=== PATIENT | male | born 1995 | race Caucasian/White ===

== ENCOUNTER 2020-10-12 03:31 | Emergency (ER) | payer MEDICAID, SELFPAY ==
--- NOTE | ~2020-10-12 | XR_ITS ---
EXAMINATION: CHEST 1 VIEW CLINICAL INFORMATION: Palpitations. COMPARISON: 03/17/2019. TECHNIQUE: An AP view of the chest is provided. FINDINGS: The cardiac silhouette is not enlarged. The mediastinal and hilar contours are unremarkable. There are neither pleural effusions nor pneumothoraces. There are no consolidations. The osseous structures are stable. XR/XR chest 1V IMPRESSION: No evidence for acute disease.
--- NOTE | 2020-10-12 03:39 | ECG_ITS ---
Test Reason : PALP Blood Pressure : / mmHG Vent. Rate : 089 BPM Atrial Rate : 089 BPM P-R Int : 108 ms QRS Dur : 080 ms QT Int : 338 ms P-R-T Axes : 059 088 049 degrees QTc Int : 411 ms Artfiact in tracing Normal sinus rhythm Due to artifact, cannot assess ST segments When compared with ECG of 17-MAR-2019 10:33, Vent. rate has increased BY 29 BPM Referred By: Lottie Ortiz Electronically Signed By:LACHO KERR
[2020-10-12 03:43] VITALS: BP 144/77; PULSE 89; RESP 23; TEMP 36.3; O2SAT 100; BMI 20.6
[2020-10-12 04:05] LABS: Basophils Absolute Auto 0.1 X10*3/uL (0.0-0.2); Basophils Percent Auto 0.8 % (0-2); Eosinophils Absolute Auto 0.2 X10*3/uL (0.0-0.4); Eosinophils Percent Auto 2.4 % (0-4); Hematocrit 42.4 % (42-52); Imm Gran Abs Auto 0.02 X10*3/uL (0.00-0.03); Imm Gran Pct Auto 0.3 % (0.0-0.4); Lymphocytes Percent Auto 37.2 % (20-40); Mean Corpuscular HGB Conc 35.4 g/dl (31.0-36.0); Mean Corpuscular Hemoglobin 31.7 pg (27.0-33.0); Mean Corpuscular Volume 89.6 fL (80-98); Mean Platelet Volume 9.6 fL (9.4-12.4); Monocytes Absolute Auto 0.5 X10*3/uL (0.1-1.2); Monocytes Percent Auto 6.8 % (2-11); Neutrophils Absolute Auto 4.2 X10*3/uL (2.0-8.3); Neutrophils Percent Auto 52.5 % (45-73); Platelet Count 191 X10*3/uL (160-400); Red Blood Count 4.73 X10*6/uL (4.60-5.80); Red Cell Distribution Width 11.7 % (11.0-16.0)
[2020-10-12 04:06] LABS: MANUAL DIFF FLAG NO
--- NOTE | 2020-10-12 04:13 | ED_ITS ---
HPI - Arrhythmia/Palpitations General Chief Complaint: Arrhythmia/Palpitations Stated Complaint: Palpitations Time Seen by Provider: 10/12/20 04:08 Source: patient Mode of arrival: ambulatory Limitations: no limitations History of Present Illness HPI narrative: Patient comes emergency room complaining heart racing, palpitations, has been going on for 24 hours. Patient states he can not sleep, feels his heart racing, cannot go to sleep because he has the sensation that he is going to . Patient denies drinking energy drinks, denies using drugs MD complaint: rapid heart beat, heart racing and palpitations Related Data Previous Rx's Medication Instructions Recorded lorazepam [Ativan] 0.5 mg PO BID PRN #5 tab 10/12/20 Allergies Allergy/AdvReac Type Severity Reaction Status Date / Time diphenhydramine Allergy Unknown unknown Verified 10/12/20 04:33 [From BENADRYL] haloperidol [From HALDOL] Allergy Unknown unknown Verified 10/12/20 04:33 Review of Systems Review of Systems: Constitutional : No Weight loss, No Fever, No Chills, No Night Sweats, No Fatigue, No Malaise ENT/Mouth : No Hearing loss, No Ear Pain, No Nasal Congestion, No Sinus Pain, No Hoarseness, No sore throat, No Rhinorrhea, No Swallowing Difficulty Eyes: No Eye Pain, No Swelling, No Redness, No Foreign Body, No Discharge, No Vision Changes Cardiovascular : No Chest Pain, No SOB, No Dyspnea on Exertion, No Orthopnea, No Edema, complaining of heart racing and palpitations Respiratory : No Cough, No Sputum, No Wheezing, No Smoke Exposure, No Dyspnea Gastrointestinal : No Nausea, No Vomiting, No Diarrhea, No Constipation, No abdominal Pain, No Hematochezia, No Melena Genitourinary : no irregular bleeding, No Dysuria, No Urinary Frequency, No Hematuria, No Urinary Incontinence, No Urgency, No Flank Pain, No Urinary Flow Changes, No Hesitancy Musculoskeletal : No joint pain, No Myalgias, No Joint Swelling Skin : No Skin Lesions, No rash Neuro : No Weakness, No Numbness, No Paresthesias, No Loss of Consciousness, No Dizziness, No Headache Psych : Does feel anxious, No Depression, No SI/HI/AH/VH, No Social Issues, Heme/Lymph: No Bruising, No Bleeding,No Lymphadenopathy Endocrine : No Polyuria, No Polydipsia, No Temperature Intolerance [facility], [facility] Social History Social History Advance Directives: No Advance Directives Information Provided: No Physical Exam Vital Signs: Vital Signs: Last Vital Signs Temp 97.4 F 10/12/20 03:43 Pulse 89 10/12/20 03:43 Resp 23 H 10/12/20 03:43 BP 144/77 H 10/12/20 03:43 Pulse Ox 100 10/12/20 03:43 Body Mass Index 20.6 Appearance: Alert. Oriented X3. No acute distress. Seems very anxious Eyes: Pupils equal, round and reactive to light. ENT: Pharynx normal. Neck: Normal inspection. Neck supple. No lymph nodes noted. No crepitus CVS: Normal heart rate and rhythm. Pulses normal. Normal S1 and S2 Respiratory: No respiratory distress. Breath sounds normal. No Wheezing. No rales Abdomen: Soft and nontender. No rigidity. No distention. good BS x4 Skin: Skin warm and dry. Normal skin color. Normal skin turgor. Extremities: No lower extremity edema. No lower extremity edema. No Lacerations. No Rash Neuro: Oriented X 3. No motor deficit. No sensory deficit. Moving all extermities. No slurred speech. Course Course Course Narrative: I discussed the labs and imaging with the patient, no acute findings. Patient states that she feels much better after a dose of Ativan. MDM - Arrhythmia/Palpitations Lab Data Result diagrams: 10/12/20 03:57 10/12/20 03:58 Labs: Lab Results 10/12/20 10/12/20 10/12/20 Range/Units 03:57 03:57 03:57 WBC 8.0 (4.8-10.8) X10*3/uL RBC 4.73 (4.60-5.80) X10*6/uL Hgb 15.0 (14.0-18.0) g/dl Hct 42.4 (42-52) % MCV 89.6 (80-98) fL MCH 31.7 (27.0-33.0) pg MCHC 35.4 (31.0-36.0) g/dl RDW 11.7 (11.0-16.0) % Plt Count 191 (160-400) X10*3/uL MPV 9.6 (9.4-12.4) fL Immature Gran % (Auto) 0.3 (0.0-0.4) % Neut % (Auto) 52.5 (45-73) % Lymph % (Auto) 37.2 (20-40) % [place] % (Auto) 6.8 (2-11) % Eos % (Auto) 2.4 (0-4) % Baso % (Auto) 0.8 (0-2) % Lymph # (Auto) 3.0 (1.2-4.9) X10*3/uL [place] # (Auto) 0.5 (0.1-1.2) X10*3/uL Eos # (Auto) 0.2 (0.0-0.4) X10*3/uL Baso # (Auto) 0.1 (0.0-0.2) X10*3/uL Abs Immat Gran (auto) 0.02 (0.00-0.03) X10*3/uL Absolute Neuts (auto) 4.2 (2.0-8.3) X10*3/uL Absolute Nucleated RBC 0.000 (0.0-0.012) X10*3/uL Nucleated RBC % (auto) 0.0 (0.0-0.2) /100WBC D-Dimer < 200 NG/ML Hold Blue Top SEE NOTE Sodium (135-145) mmol/L Potassium (3.3-5.1) mmol/L Chloride (96-108) mmol/L Carbon Dioxide (22-29) mmol/L Anion Gap (12-20) BUN (9-16) mg/dL Creatinine (0.5-1.4) mg/dL Estim Creat Clear Calc Estimated GFR Random Glucose (60-115) mg/dL Calcium (8.4-10.2) mg/dL Troponin I High Sens < 3.5 (<3.5-35.0) ng/L 10/12/20 Range/Units 03:58 WBC (4.8-10.8) X10*3/uL RBC (4.60-5.80) X10*6/uL Hgb (14.0-18.0) g/dl Hct (42-52) % MCV (80-98) fL MCH (27.0-33.0) pg MCHC (31.0-36.0) g/dl RDW (11.0-16.0) % Plt Count (160-400) X10*3/uL MPV (9.4-12.4) fL Immature Gran % (Auto) (0.0-0.4) % Neut % (Auto) (45-73) % Lymph % (Auto) (20-40) % [place] % (Auto) (2-11) % Eos % (Auto) (0-4) % Baso % (Auto) (0-2) % Lymph # (Auto) (1.2-4.9) X10*3/uL [place] # (Auto) (0.1-1.2) X10*3/uL Eos # (Auto) (0.0-0.4) X10*3/uL Baso # (Auto) (0.0-0.2) X10*3/uL Abs Immat Gran (auto) (0.00-0.03) X10*3/uL Absolute Neuts (auto) (2.0-8.3) X10*3/uL Absolute Nucleated RBC (0.0-0.012) X10*3/uL Nucleated RBC % (auto) (0.0-0.2) /100WBC D-Dimer NG/ML Hold Blue Top Sodium 144 (135-145) mmol/L Potassium 4.1 (3.3-5.1) mmol/L Chloride 109 H (96-108) mmol/L Carbon Dioxide 22 (22-29) mmol/L Anion Gap 17 (12-20) BUN 17 H (9-16) mg/dL Creatinine 1.04 (0.5-1.4) mg/dL Estim Creat Clear Calc 114.9 Estimated GFR > 60 Random Glucose 87 (60-115) mg/dL Calcium 9.5 (8.4-10.2) mg/dL Troponin I High Sens (<3.5-35.0) ng/L Imaging Data Chest x-ray: Radiologist's impression: FINDINGS: The cardiac silhouette is not enlarged. The mediastinal and hilar contours are unremarkable. There are neither pleural effusions nor pneumothoraces. There are no consolidations. The osseous structures are stable. XR/XR chest 1V IMPRESSION: No evidence for acute disease. ECG Data Attestation: I personally reviewed and interpreted this ECG as follows: (Heart rate 89, sinus rhythm, QTC 411, no ST segment depression, nonspecific elevation in V3 and V4, EKG with significant interference) Discharge Plan Discharge Clinical Impression: Anxiety, Palpitations Patient Disposition: Home, Self-Care Instructions: Heart Palpitations (ED), Anxiolysis in Adults (ED) Additional Instructions: Please follow-up with your primary care physician tomorrow. If you have any worsening or new symptoms, please return to the emergency room or call 911 Prescriptions: New lorazepam [Ativan] 0.5 mg tablet 0.5 mg PO BID PRN (Reason: anxiety) Qty: 5 RF: 0
[2020-10-12 04:24] LABS: Anion Gap 17 (12-20); Blood Urea Nitrogen 17 mg/dL (9-16); Calcium 9.5 mg/dL (8.4-10.2); Carbon Dioxide 22 mmol/L (22-29); Chloride 109 mmol/L (96-108); Creatinine Clr Calc Pharmacy 114.9; Estimated Glomerular Filt Rate > 60; Glucose Random 87 mg/dL (60-115); Potassium 4.1 mmol/L (3.3-5.1); Sodium 144 mmol/L (135-145)
[2020-10-12 04:26] VITALS: PULSE 89
[2020-10-12 04:29] LABS: Troponin-I High Sensitivity < 3.5 ng/L (<3.5-35.0)
[2020-10-12] MEDS: LORazepam 1 MG TABLET 2 MG PO (04:39)
[2020-10-12 04:47] LABS: D Dimer < 200 NG/ML
== END 2020-10-12 05:48 | disposition home or self-care (01) ==
PROVIDERS: Emergency Provider Emergency Medicine; PCP Internal Medicine
DX: F41.1 Generalized anxiety disorder (principal); R00.2 Palpitations; F43.0 Acute stress reaction; Z79.899 Other long term (current) drug therapy
CPT/HCPCS: 36415; 71045; 80048; 84484; 85025; 85379; 93005; 99283; 99284

== ENCOUNTER 2020-12-22 11:51 | Emergency (ER) | payer MEDICAID, SELFPAY ==
[2020-12-22 11:57] VITALS: BP 134/80; PULSE 97; O2SAT 100
[2020-12-22 12:08] VITALS: BP 142/72; PULSE 91; RESP 16; TEMP 36.2; O2SAT 100; BMI 20.3
--- NOTE | 2020-12-22 12:24 | ECG_ITS ---
Test Reason : CHEST PAIN Blood Pressure : / mmHG Vent. Rate : 108 BPM Atrial Rate : 108 BPM P-R Int : 122 ms QRS Dur : 084 ms QT Int : 330 ms P-R-T Axes : 085 088 049 degrees QTc Int : 442 ms Sinus tachycardia Possible Left atrial enlargement Borderline ECG When compared with ECG of 12-OCT-2020 03:39, No significant change was found Referred By: Ryann Villalta Electronically Signed By:Mckay Nguyen
--- NOTE | 2020-12-22 12:24 | ED.ANXIETY ---
HPI - Anxiety General Chief Complaint: Anxiety Stated Complaint: SOB,ANXIETY Time Seen by Provider: 12/22/20 12:23 Source: patient and EMS Mode of arrival: EMS Limitations: no limitations History of Present Illness HPI narrative: 25 y/o male with history of anxiety, panic attacks, psychosis who presents to the ED via EMS with acute onset of panic attack and anxiety that started just prior to coming in. He states he has been going through a lot of stress lately. He was seen here in September for another panic attack. He reports seeing his doctor 1 month ago and everything was going well. He has prescribed PRN ativan at home but did not take it because he felt like it wasnt going to work fast enough. He felt like he was going to pass out because he was so anxious and he lives home alone so he called 911. MD complaint: anxiety, heart racing and shortness of breath Onset (ago): minute(s) Symptoms: dyspnea, palpitations and sense of impending doom Severity: similar to previous episodes Quality: improving Place: home History of similar episodes: Yes Provoking factors: emotional stress Relieving factors: medication, deep breaths and rest Exacerbating factors: thinking about event Associated symptoms: shortness of breath and palpitations Related Data Previous Rx's Medication Instructions Recorded lorazepam [Ativan] 0.5 mg PO BID PRN #5 tab 10/12/20 Allergies Allergy/AdvReac Type Severity Reaction Status Date / Time diphenhydramine Allergy Unknown unknown Verified 10/12/20 04:33 [From BENADRYL] haloperidol [From HALDOL] Allergy Unknown unknown Verified 10/12/20 04:33 Review of Systems Review of Systems: Constitutional: No Fever, No Chills ENT/Mouth: No sore throat, No Rhinorrhea, No Swallowing Difficulty Cardiovascular: No Chest Pain, No SOB, No Orthopnea, No Edema, +palpitations (now improved) Respiratory: No Cough, No Sputum, No Wheezing, No dyspnea Gastrointestinal: No Nausea, No Vomiting, No Diarrhea, No abdominal Pain Musculoskeletal: No joint pain, No Myalgias Skin: No Skin Lesions, No rash Neuro: No Weakness, No Numbness, No Dizziness, No Headache Psych: + Anxiety/Panic, No Depression,No SI, No HI, No AH/VH PMFSH Past Medical History Attestation statement: The following information was validated with the patient. Medical History (Updated 12/22/20 @ 12:41 by LEANNA Kat) Anxiety Social History Social History Advance Directives: No Advance Directives Information Provided: No Physical Exam Vital Signs: Vital Signs: Last Vital Signs Temp 97.2 F 12/22/20 12:08 Pulse 91 12/22/20 12:08 Resp 16 12/22/20 12:08 BP 142/72 H 12/22/20 12:08 Pulse Ox 100 12/22/20 12:08 Body Mass Index 20.3 Appearance: Alert. Oriented X3. No acute distress. Eyes: Pupils equal, round and reactive to light. ENT: Pharynx normal. Neck: Normal inspection. Neck supple. CVS: Sinus tachycardic, regular rhythm. Pulses normal. Respiratory: No respiratory distress. Breath sounds normal. Abdomen: Soft and nontender. +BS x4 Skin: Skin warm and dry. Normal skin color. Normal skin turgor. No rashes. Extremities: No lower extremity edema. Neuro: Oriented X 3. No motor deficit. No sensory deficit. Course Course Course Narrative: 25 y/o male presenting with panic attack, history of the same. Will give dose of Ativan and monitor. EKG ordered given c/o palpitation, although they are improved now that he is in the hospital. Reevaluation(s) Reevaluation #1: 1:24 - Feels improved after Ativan. Comfortable with d/c home. Encouraged to f/u with his psych provider and immediately take his prescribed ativan once he feels his anxiety attack starting. Pt agrees with plan. MDM - Anxiety Differential Diagnosis Differential diagnosis: Likely hyperventilation, panic disorder and acute anxiety Medical Records Attestation: I reviewed the patient's medical records. ECG Data Attestation: I personally reviewed and interpreted this ECG as follows: ECG interpretation date: 12/22/20 ECG interpretation time: 13:20 Prior ECG tracings: available for review Interpretation: sinus tachycardia, HR 108 bpm, artifact present. normal DC interval. No st segment elevations or depression. unchanged from prior EKGs Critical Care Time Critical Care Time Critical Care Time: No Discharge Plan Discharge Clinical Impression: Acute anxiety Patient Disposition: Home, Self-Care Instructions: Anxiety (ED) Additional Instructions: Your EKG was unremarkable. Take all of your medications as prescribed. Follow up with your doctor CHITO. When you start to feel anxious, take a dose of your prescribed Ativan. Prescriptions: No Action lorazepam [Ativan] 0.5 mg tablet 0.5 mg PO BID PRN (Reason: anxiety) Qty: 5 RF: 0
[2020-12-22] MEDS: LORazepam 1 MG TABLET PO (12:40)
[2020-12-22 13:54] VITALS: BP 122/60; PULSE 68; RESP 16; TEMP 36.3; O2SAT 99
== END 2020-12-22 14:05 | disposition home or self-care (01) ==
PROVIDERS: Emergency Provider Emergency Medicine; PCP Internal Medicine
DX: F41.9 Anxiety disorder, unspecified (principal); R00.2 Palpitations
CPT/HCPCS: 93005; 99283; 99284

== ENCOUNTER 2021-01-15 00:54 | Emergency (ER) | payer MEDICAID, SELFPAY ==
[2021-01-15 00:54] VITALS: BP 133/72; PULSE 85; RESP 18; O2SAT 98; BMI 20.6
--- NOTE | 2021-01-15 01:08 | ED.ANXIETY ---
HPI - Anxiety General Chief Complaint: Anxiety Stated Complaint: anxiety Time Seen by Provider: 01/15/21 01:05 Source: patient Mode of arrival: ambulatory Limitations: no limitations History of Present Illness HPI narrative: Patient comes emergency room complaining of severe anxiety/panic attack. Patient states he has had multiple over the last few days. Patient ran out of his Ativan. Patient is due for refill in 2 days. Patient denies chest pain, no shortness of breath, patient states that he feels very anxious. Patient denies suicidal or homicidal ideation Related Data Previous Rx's Medication Instructions Recorded lorazepam [Ativan] 0.5 mg PO BID PRN #5 tab 10/12/20 lorazepam 0.5 mg PO BID PRN #6 tab 01/15/21 Allergies Allergy/AdvReac Type Severity Reaction Status Date / Time diphenhydramine Allergy Unknown unknown Verified 10/12/20 04:33 [From BENADRYL] haloperidol [From HALDOL] Allergy Unknown unknown Verified 10/12/20 04:33 Review of Systems Review of Systems: Constitutional : No Weight loss, No Fever, No Chills, No Night Sweats, No Fatigue, No Malaise ENT/Mouth : No Hearing loss, No Ear Pain, No Nasal Congestion, No Sinus Pain, No Hoarseness, No sore throat, No Rhinorrhea, No Swallowing Difficulty Eyes: No Eye Pain, No Swelling, No Redness, No Foreign Body, No Discharge, No Vision Changes Cardiovascular : No Chest Pain, No SOB, No Dyspnea on Exertion, No Orthopnea, No Edema, No Palpitations Respiratory : No Cough, No Sputum, No Wheezing, No Smoke Exposure, No Dyspnea Gastrointestinal : No Nausea, No Vomiting, No Diarrhea, No Constipation, No abdominal Pain, No Hematochezia, No Melena Genitourinary : no irregular bleeding, No Dysuria, No Urinary Frequency, No Hematuria, No Urinary Incontinence, No Urgency, No Flank Pain, No Urinary Flow Changes, No Hesitancy Musculoskeletal : No joint pain, No Myalgias, No Joint Swelling Skin : No Skin Lesions, No rash Neuro : No Weakness, No Numbness, No Paresthesias, No Loss of Consciousness, No Dizziness, No Headache Psych : Complaining of anxiety/panic attack, No Depression, No SI/HI/AH/VH, No Social Issues, Heme/Lymph: No Bruising, No Bleeding,No Lymphadenopathy Endocrine : No Polyuria, No Polydipsia, No Temperature Intolerance PMFSH Past Medical History Medical History Anxiety Social History Social History Alcohol intake: current Alcohol intake frequency: a few times a week Patient Tobacco Use Status: Former Tobacco user Smoked in Last 30 Days: No Use of substances other than those prescribed or required for medical reasons: Unknown Advance Directives: No Advance Directives Information Provided: No Physical Exam Vital Signs: Vital Signs: Last Vital Signs Pulse 85 01/15/21 00:54 Resp 18 01/15/21 00:54 BP 133/72 01/15/21 00:54 Pulse Ox 98 01/15/21 00:54 Body Mass Index 20.6 Appearance: Alert. Oriented X3. Patient very anxious, pacing around the room , otherwise calm and cooperative Eyes: Pupils equal, round and reactive to light. ENT: Pharynx normal. Neck: Normal inspection. Neck supple. No lymph nodes noted. No crepitus CVS: Normal heart rate and rhythm. Pulses normal. Normal S1 and S2 Respiratory: No respiratory distress. Breath sounds normal. No Wheezing. No rales Abdomen: Soft and nontender. No rigidity. No distention. good BS x4 Skin: Skin warm and dry. Normal skin color. Normal skin turgor. Extremities: No lower extremity edema. No lower extremity edema. No Lacerations. No Rash Neuro: Oriented X 3. No motor deficit. No sensory deficit. Moving all extermities. No slurred speech. Course Course Course Narrative: Patient was given 1 dose of p.o. lorazepam. Patient has a sober ride with him who will be taking him home. I was informed by the patient's grandmother that the patient's mother is concerned that the patient has been hearing voices. I discussed this with the patient, patient denies any visual or auditory hallucinations, denies suicidal homicidal ideation, patient states that he is feels very anxious, ran out of his medication, patient declined [facility] consult. At this time, there is no reason to Section 12 the patient. Discharge Plan Discharge Clinical Impression: Acute anxiety Patient Disposition: Home, Self-Care Instructions: Anxiety (ED), Panic Attack (ED) Additional Instructions: Please follow-up with your primary care physician tomorrow. If you have any worsening or new symptoms, please return to the emergency room or call 911 Prescriptions: New lorazepam 0.5 mg tablet 0.5 mg PO BID PRN (Reason: anxiety) Qty: 6 RF: 0 No Action lorazepam [Ativan] 0.5 mg tablet 0.5 mg PO BID PRN (Reason: anxiety) Qty: 5 RF: 0
[2021-01-15] MEDS: LORazepam 1 MG TABLET PO (01:23)
--- NOTE | 2021-01-15 01:24 | PC.NURSE ---
Per mom in waiting room: Pt has been off meds x 1 year and is followed by [facility]. Pt Schizophrenic symptoms such being chased, having his food poisioned, not sleeping, being afraid of his apartment, [employer] they use my family against me and they want to see me . Per mom pt states that all the buddhist is going to [my] head . pt has delusions of persecution that all of [place] is after him, Pt has frequent outbursts with rapid mood cycling that he attributes to panic attacks. mom states she has been in contact with [facility], and has no group therapist at this time. mom has contacted advocate with little to no success. pt had violent behaviors in past when presenting with simliar issues. Pt has reportedly told mom that he is hearing voices to kill himself, but they want me but i know better. Per mom [facility] refilled Lorazepam but patient texted mom, staying the pills got crushed, they made me do it, i need a refill.
--- NOTE | 2021-01-15 01:30 | PC.NURSE ---
notified of above. pt continues to deny si/hi.
== END 2021-01-15 01:26 | disposition home or self-care (01) ==
LOC: HO.ED 01:20
PROVIDERS: Emergency Provider Emergency Medicine; PCP Internal Medicine
DX: F41.8 Other specified anxiety disorders (principal)
CPT/HCPCS: 99283; 99284

== ENCOUNTER 2021-01-19 05:38 | Emergency (ER) | payer MEDICAID, SELFPAY ==
[2021-01-19 05:44] VITALS: BP 132/75; PULSE 91; RESP 19; TEMP 36.8; O2SAT 100
[2021-01-19] MEDS: LORazepam 1 MG TABLET PO (05:53)
--- NOTE | 2021-01-19 06:17 | ED.ANXIETY ---
HPI - Anxiety General Chief Complaint: Anxiety Stated Complaint: ANXIETY Time Seen by Provider: 01/19/21 05:48 Source: patient Mode of arrival: EMS Limitations: no limitations History of Present Illness HPI narrative: patient history of anxiety on Ativan given with psychiatrist ran out of the medication has prescription at home feels very anxious and able to sleep denies any suicidal ideation patient been here before for similar situation feels safe at home Related Data Previous Rx's Medication Instructions Recorded lorazepam [Ativan] 0.5 mg PO BID PRN #5 tab 10/12/20 lorazepam 0.5 mg PO BID PRN #6 tab 01/15/21 Allergies Allergy/AdvReac Type Severity Reaction Status Date / Time diphenhydramine Allergy Unknown unknown Verified 10/12/20 04:33 [From BENADRYL] haloperidol [From HALDOL] Allergy Unknown unknown Verified 10/12/20 04:33 Review of Systems Review of Systems: Yes all other systems are reviewed and are negative [facility] Past Medical History Medical History Anxiety Social History Social History Alcohol intake: current Alcohol intake frequency: a few times a week Patient Tobacco Use Status: Former Tobacco user Advance Directives: No Advance Directives Information Provided: No Physical Exam Vital Signs: Vital Signs: Last Vital Signs Temp 98.3 F 01/19/21 05:44 Pulse 91 01/19/21 05:44 Resp 19 01/19/21 05:44 BP 132/75 01/19/21 05:44 Pulse Ox 100 01/19/21 05:44 Body Mass Index 20.0 Appearance: Alert. Oriented X3. very anxious Eyes: PERRLA, No Nystagmus ENT: Pharynx normal. Oral Mucosa moist Neck: Normal inspection. Neck supple. CVS: Normal heart rate and rhythm. Pulses normal. Respiratory: No respiratory distress. Equal air entry bilateral, no wheezing/rales/rhonchi Abdomen: Soft and nontender. Bowel sounds are present, Skin: Skin warm and dry. Normal skin color. . Extremities: No lower extremity edema. No calf tenderness Neuro: Oriented X 3. No motor deficit. No sensory deficit.No cerebellar signs , cranial nerves II-XII intact steady gait Psych: anxious+++, denies depression denies suicidal ideation denies hallucination fair judgment MDM - Anxiety MDM Narrative Medical decision making narrative: patient with anxiety already has prescription at home , will give him Ativan see feels safe to go home Discharge Plan Discharge Clinical Impression: Anxiety Patient Disposition: Home, Self-Care Instructions: Anxiety (ED) Additional Instructions: follow-up with your psychiatrist as scheduled Prescriptions: No Action lorazepam [Ativan] 0.5 mg tablet 0.5 mg PO BID PRN (Reason: anxiety) Qty: 5 RF: 0 lorazepam 0.5 mg tablet 0.5 mg PO BID PRN (Reason: anxiety) Qty: 6 RF: 0 Interventions: ED Discharge Assessment Last Done: 01/19/21 05:56 Discharge Date/Time: 01/19/21 05:59
== END 2021-01-19 05:59 | disposition home or self-care (01) ==
LOC: HO.ED 05:51
PROVIDERS: Emergency Provider Internal Medicine; PCP Internal Medicine
DX: F41.9 Anxiety disorder, unspecified (principal)
CPT/HCPCS: 99282; 99283

== ENCOUNTER 2021-02-24 07:50 | Emergency (ER) | payer MEDICAID, SELFPAY ==
--- NOTE | ~2021-02-24 | CT_ITS ---
EXAMINATION: CT ABDOMEN AND PELVIS WITHOUT CONTRAST CLINICAL INFORMATION: Elevated LFTs COMPARISON: January 18, 2016 TECHNIQUE: Multidetector volumetric imaging was performed from the superior aspect of the liver through the pubic symphysis. Sagittal and coronal reformatted images were obtained on the technologist's workstation. This CT examination was performed using dose optimization techniques as appropriate, variously including the following: *Automated exposure control *Adjustment of mA and/or kV according to patient size (this includes techniques or standardized protocols for targeted exams where dose is matched to indication/reason for exam; i.e. extremities or head) *Use of iterative reconstruction technique DLP: 428 mGy-cm FINDINGS: There is motion artifact present as well as lack of oral contrast, lack of intravenous contrast, and lack of intra-abdominal fat significantly limiting evaluation. LUNG BASES: Unremarkable. No pleural or pericardial effusion. LIVER, GALLBLADDER, AND BILIARY TREE: There is mild hepatomegaly present with vertical span of 20 cm. No definite intrahepatic bile duct dilatation is seen and no abnormal masses appreciated. Limited evaluation with question of sludge of increased density. No calculi identified and no definite wall thickening can be seen. PANCREAS: Limited evaluation without obvious mass or peripancreatic inflammatory change. SPLEEN: Unremarkable. ADRENAL GLANDS: Right adrenal gland unremarkable. Left adrenal gland is not identified. KIDNEYS AND URETERS: The kidneys are normal in size, shape, and attenuation. There are a few nonobstructing 2 mm calculi seen bilaterally. No hydronephrosis. Ureters not identified. BLADDER: Decompressed GASTROINTESTINAL TRACT: The stomach is distended. No definite dilated loops of large or small bowel are seen. Extremely limited evaluation. ABDOMINAL WALL: No significant hernia is appreciated. LYMPH NODES: Not able to evaluate VASCULAR: Not able to evaluate PELVIC VISCERA: Not able to evaluate OSSEOUS STRUCTURES: Unremarkable. CT/CT abdomen pelvis wo con IMPRESSION: Extremely limited examination as described. Mild hepatomegaly. Nephrolithiasis without evidence of hydronephrosis.
--- NOTE | 2021-02-24 07:57 | ED.PSYCH ---
HPI - Psych General Chief Complaint: Psychiatric Symptoms Stated Complaint: CRISIS,DELUSIONAL Time Seen by Provider: 02/24/21 07:56 Source: patient, EMS and old records reviewed Mode of arrival: EMS Limitations: other (poor historian) History of Present Illness HPI Narrative: 25 yo male with hx of anxiety, review of records show schizoaffective disorder, EMS was called today due to the patient kneeling outside, being jittery, acting off, no SI statements made, EMS notes the patient was just staring off MD complaint: anxiety Onset (ago): unknown Duration: constant History of same: Yes Relieving factors: none Exacerbating factors: none Context: other (patient states I need ativan. ) Associated psychiatric symptoms: delusions Associated symptoms: denies other symptoms Treatments prior to arrival: none Related Data Home Medications Medication Instructions Recorded Confirmed lorazepam 0.5 mg tablet (Ativan) 0.5 mg PO DAILY PRN 02/24/21 02/24/21 Allergies Allergy/AdvReac Type Severity Reaction Status Date / Time diphenhydramine Allergy Unknown unknown Verified 10/12/20 04:33 [From BENADRYL] haloperidol [From HALDOL] Allergy Unknown unknown Verified 10/12/20 04:33 Review of Systems Review of Systems: ROS unable to be obtained due to patient not really answering questions [facility] Past Medical History Attestation statement: The following information was validated with the patient. Medical History Anxiety Schizoaffective disorder Social History Social History Alcohol intake: current Alcohol intake frequency: a few times a week Patient Tobacco Use Status: Former Tobacco user Advance Directives: No Advance Directives Information Provided: Yes Physical Exam Vital Signs: Vital Signs: Body Mass Index 21.0 Appearance: Alert. Oriented X3. No acute distress. Staring off, intermittently answering questions Eyes: Pupils equal, round and reactive to light. ENT: Pharynx normal. Atraumatic Neck: Normal inspection. Neck supple. CVS: Normal heart rate and rhythm. Pulses normal. Respiratory: No respiratory distress. Breath sounds normal. Abdomen: Soft and nontender. Skin: Skin warm and dry. Normal skin color. Normal skin turgor. Extremities: No lower extremity edema. No calf ttp Neuro: Oriented X 3. No motor deficit. No sensory deficit. CN2-12 intact Psych: Flat affect, intermittent tremors, no SI/HI, at one point I believe he was mumbling to himself Course Course Course Narrative: LFTs bumped but no abdominal pain, lipase mildly elevated - will obtain CT scan given delusions Physician observation started at 130pm. Patient placed in physician observation because the patient needed more time for [facility] to evaluate the need for inpatient psych admission. At the time observation was started the patient's vitals were stable, patient is alert and oriented but slightly anxious, Neuro: nonfocal, CV RRR, Lungs clear section 12 bed search signed out pending repeat labs in AM, CT scan negative MDM - Psych MDM Narrative Medical decision making narrative: 25 yo male with hx of anxiety, review of records show schizoaffective disorder, EMS was called today due to the patient kneeling outside, being jittery, acting off, no SI statements made, EMS notes the patient was just staring off at this time, labs, UA, COVID swab, ativan for anxiety, given his presentation I am going to refer to [facility] Lab Data Result diagrams: 02/24/21 08:31 02/24/21 08:31 Labs: Lab Results 02/24/21 02/24/21 02/24/21 Range/Units 08:17 08:18 08:31 WBC 9.2 (4.8-10.8) X10*3/uL RBC 4.61 (4.60-5.80) X10*6/uL Hgb 14.7 (14.0-18.0) g/dl Hct 42.1 (42-52) % MCV 91.3 (80-98) fL MCH 31.9 (27.0-33.0) pg MCHC 34.9 (31.0-36.0) g/dl RDW 12.2 (11.0-16.0) % Plt Count 186 (160-400) X10*3/uL MPV 9.4 (9.4-12.4) fL Immature Gran % (Auto) 0.2 (0.0-0.4) % Neut % (Auto) 76.9 H (45-73) % Lymph % (Auto) 14.9 L (20-40) % [place] % (Auto) 7.2 (2-11) % Eos % (Auto) 0.3 (0-4) % Baso % (Auto) 0.5 (0-2) % Lymph # (Auto) 1.4 (1.2-4.9) X10*3/uL [place] # (Auto) 0.7 (0.1-1.2) X10*3/uL Eos # (Auto) 0.0 (0.0-0.4) X10*3/uL Baso # (Auto) 0.1 (0.0-0.2) X10*3/uL Abs Immat Gran (auto) 0.02 (0.00-0.03) X10*3/uL Absolute Neuts (auto) 7.1 (2.0-8.3) X10*3/uL Absolute Nucleated RBC 0.000 (0.0-0.012) X10*3/uL Nucleated RBC % (auto) 0.0 (0.0-0.2) /100WBC Sodium (135-145) mmol/L Potassium (3.3-5.1) mmol/L Chloride (96-108) mmol/L Carbon Dioxide (22-29) mmol/L Anion Gap (12-20) BUN (9-16) mg/dL Creatinine (0.5-1.4) mg/dL Estim Creat Clear Calc Estimated GFR Random Glucose (60-115) mg/dL Calcium (8.4-10.2) mg/dL Magnesium (1.6-2.6) mg/dL Total Bilirubin (0.0-1.0) mg/dL Direct Bilirubin (0.0-0.5) mg/dL AST (5-37) U/L ALT (0-40) U/L Alkaline Phosphatase (39-117) U/L Total Protein (6.5-8.0) g/dL Albumin (3.5-5.0) g/dL Lipase (8-78) U/L Urine Opiates Screen Not Detected (Not Detect) Acetaminophen (<30) mcg/mL Ur Barbiturates Screen Not Detected (Not Detect) Ur Phencyclidine Scrn Not Detected (Not Detect) Ur Amphetamines Screen Not Detected (Not Detect) U Benzodiazepines Scrn Not Detected (Not Detect) Urine Cocaine Screen Not Detected (Not Detect) U Marijuana (THC) Screen Not Detected (Not Detect) Ethyl Alcohol mg/dL COVID-19 (ALAN) Negative (Negative) COVID-19 Clin Com See Note 02/24/21 02/24/21 Range/Units 08:31 08:31 WBC (4.8-10.8) X10*3/uL RBC (4.60-5.80) X10*6/uL Hgb (14.0-18.0) g/dl Hct (42-52) % MCV (80-98) fL MCH (27.0-33.0) pg MCHC (31.0-36.0) g/dl RDW (11.0-16.0) % Plt Count (160-400) X10*3/uL MPV (9.4-12.4) fL Immature Gran % (Auto) (0.0-0.4) % Neut % (Auto) (45-73) % Lymph % (Auto) (20-40) % [place] % (Auto) (2-11) % Eos % (Auto) (0-4) % Baso % (Auto) (0-2) % Lymph # (Auto) (1.2-4.9) X10*3/uL [place] # (Auto) (0.1-1.2) X10*3/uL Eos # (Auto) (0.0-0.4) X10*3/uL Baso # (Auto) (0.0-0.2) X10*3/uL Abs Immat Gran (auto) (0.00-0.03) X10*3/uL Absolute Neuts (auto) (2.0-8.3) X10*3/uL Absolute Nucleated RBC (0.0-0.012) X10*3/uL Nucleated RBC % (auto) (0.0-0.2) /100WBC Sodium 141 (135-145) mmol/L Potassium 3.9 (3.3-5.1) mmol/L Chloride 105 (96-108) mmol/L Carbon Dioxide 26 (22-29) mmol/L Anion Gap 14 (12-20) BUN 24 H (9-16) mg/dL Creatinine 1.17 (0.5-1.4) mg/dL Estim Creat Clear Calc 101.5 Estimated GFR > 60 Random Glucose 114 (60-115) mg/dL Calcium 9.8 (8.4-10.2) mg/dL Magnesium 2.4 (1.6-2.6) mg/dL Total Bilirubin 0.6 (0.0-1.0) mg/dL Direct Bilirubin 0.3 (0.0-0.5) mg/dL AST 126 H (5-37) U/L ALT 60 H (0-40) U/L Alkaline Phosphatase 61 (39-117) U/L Total Protein 7.4 (6.5-8.0) g/dL Albumin 4.9 (3.5-5.0) g/dL Lipase 99 H (8-78) U/L Urine Opiates Screen (Not Detect) Acetaminophen < 1 (<30) mcg/mL Ur Barbiturates Screen (Not Detect) Ur Phencyclidine Scrn (Not Detect) Ur Amphetamines Screen (Not Detect) U Benzodiazepines Scrn (Not Detect) Urine Cocaine Screen (Not Detect) U Marijuana (THC) Screen (Not Detect) Ethyl Alcohol < 10 mg/dL COVID-19 (ALAN) (Negative) COVID-19 Clin Com Discharge Plan Discharge Clinical Impression: Acute anxiety, Delusions Prescriptions: No Action lorazepam [Ativan] 0.5 mg tablet 0.5 mg PO DAILY PRN (Reason: anxiety) RF: 0
[2021-02-24 08:02] VITALS: BP 140/80; PULSE 76; O2SAT 100; BMI 21.0
[2021-02-24] MEDS: LORazepam 1 MG TABLET PO (08:13)
--- NOTE | 2021-02-24 08:29 | PC.NURSE ---
patient did take ativan when it was presented, patient minimally able to answer questions from registration personnel, did answer that he was hungry when spoken to
--- NOTE | 2021-02-24 08:31 | PHA.MEDREC ---
Pharmacy Consult ? Medication Reconciliation Pharmacy has completed the medication reconciliation. Spoke with patient in [facility]. Patient states he is only on Lorazepam and last took about 1 week ago
[2021-02-24 08:39] LABS: MANUAL DIFF FLAG NO
[2021-02-24 08:41] LABS: Basophils Absolute Auto 0.1 X10*3/uL (0.0-0.2); Basophils Percent Auto 0.5 % (0-2); Eosinophils Percent Auto 0.3 % (0-4); Hematocrit 42.1 % (42-52); Hemoglobin 14.7 g/dl (14.0-18.0); Imm Gran Abs Auto 0.02 X10*3/uL (0.00-0.03); Imm Gran Pct Auto 0.2 % (0.0-0.4); Lymphocytes Absolute Auto 1.4 X10*3/uL (1.2-4.9); Lymphocytes Percent Auto 14.9 % (20-40); Mean Corpuscular HGB Conc 34.9 g/dl (31.0-36.0); Mean Corpuscular Hemoglobin 31.9 pg (27.0-33.0); Mean Corpuscular Volume 91.3 fL (80-98); Mean Platelet Volume 9.4 fL (9.4-12.4); Monocytes Absolute Auto 0.7 X10*3/uL (0.1-1.2); Monocytes Percent Auto 7.2 % (2-11); Neutrophils Absolute Auto 7.1 X10*3/uL (2.0-8.3); Neutrophils Percent Auto 76.9 % (45-73); Platelet Count 186 X10*3/uL (160-400); Red Blood Count 4.61 X10*6/uL (4.60-5.80); Red Cell Distribution Width 12.2 % (11.0-16.0); White Blood Count 9.2 X10*3/uL (4.8-10.8)
[2021-02-24 08:41] LABS: COVID-19 Test Negative (Negative)
[2021-02-24 08:52] LABS: Amphetamine Screen Urine Not Detected (Not Detect); Barbiturates, Urine Not Detected (Not Detect); Benzodiazepines Screen Urine Not Detected (Not Detect); Cannabinoid Screen Urine Not Detected (Not Detect); Cocaine Screen Urine Not Detected (Not Detect); Opiate Screen Urine Not Detected (Not Detect); Phencyclidine Screen Urine Not Detected (Not Detect)
[2021-02-24 09:10] LABS: Ethanol < 10 mg/dL
[2021-02-24 09:26] LABS: Alanine Aminotransferase 60 U/L (0-40); Albumin Level 4.9 g/dL (3.5-5.0); Alkaline Phosphatase 61 U/L (39-117); Anion Gap 14 (12-20); Aspartate Amino Transferase 126 U/L (5-37); Bilirubin Direct 0.3 mg/dL (0.0-0.5); Bilirubin Total 0.6 mg/dL (0.0-1.0); Blood Urea Nitrogen 24 mg/dL (9-16); Calcium 9.8 mg/dL (8.4-10.2); Carbon Dioxide 26 mmol/L (22-29); Chloride 105 mmol/L (96-108); Creatinine Clr Calc Pharmacy 101.5; Estimated Glomerular Filt Rate > 60; Glucose Random 114 mg/dL (60-115); Magnesium 2.4 mg/dL (1.6-2.6); Potassium 3.9 mmol/L (3.3-5.1); Sodium 141 mmol/L (135-145); Total Protein 7.4 g/dL (6.5-8.0)
[2021-02-24 10:37] LABS: Lipase 99 U/L (8-78)
[2021-02-24 10:43] LABS: Acetaminophen LAB < 1 mcg/mL (<30)
--- NOTE | 2021-02-24 12:38 | PC.NURSE ---
patients mother walked in by security, patient had been asked prior for permission to speak to visitor
[2021-02-24] MEDS: Nicotine 21 MG PATCH.TD24 TRANSDERMA (15:36)
--- NOTE | 2021-02-24 16:14 | PM.PSYCN ---
History of Present Illness Date of Service: 02/24/2021 Chief Complaint: CRISIS,DELUSIONAL Reason for Consult: psychosis Requesting physician: Yas Nelson Discussed with referring provider: Yes Sources of Information: patient interviewed, chart reviewed and crisis/core team assessment reviewed HPI Narrative: Jose is a 25 y.o. male who carries a diagnosis of schizoaffective disorder. He was evaluated at [facility], arrived via ambulance after friends called due to concern with latter-day delusions, pacing back and forth, increased anxiety. He has a history of multiple inpatient psych admissions for SI, A/VH, paranoid ideations, and decompensation in context of med non-adherence. I evaluated the patient this afternoon and upon interview he states that his mood is ?great? and that he is ?not psychotic.? He denies A/VH although appears to be responding to internal stimuli. 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 He denies SI/SIB/HI upon inquiry and says he feels safe. He has a hx of non-adherence with medications. Per chart, past med trials of Zyprexa, Seroquel, and Haldol (listed as allergy). Remote hx of OP treatment at [facility] [phone]. Last inpatient admission 2018 at [facility] for psychotic sx, SI. Past Psychiatric History: Hx of multiple inpatient admissions: 10/20/18 - [facility] 07/10/18 - 07/27/18 [place] [id number] 06/05/18 - 06/26/18 [place] [id number] 11/25/17 - 01/07/18 [facility] 07/10/16 - 09/08/16 [facility] Medical Evaluation Reviewed: Yes Review of Systems Review of Systems [facility] Medical History (Updated 02/24/21 @ 16:45 by Tatiana Camacho NP) Anxiety Schizoaffective disorder Diagnostics Vital Signs (24Hr): Body Mass Index 21.0 Labs Results: 02/24/21 08:31 02/24/21 08:31 Labs: Laboratory Results - last 48 hr 02/24/21 02/24/21 02/24/21 08:17 08:18 08:31 WBC 9.2 RBC 4.61 Hgb 14.7 Hct 42.1 MCV 91.3 MCH 31.9 MCHC 34.9 RDW 12.2 Plt Count 186 MPV 9.4 Immature Gran % (Auto) 0.2 Neut % (Auto) 76.9 H Lymph % (Auto) 14.9 L [place] % (Auto) 7.2 Eos % (Auto) 0.3 Baso % (Auto) 0.5 Lymph # (Auto) 1.4 [place] # (Auto) 0.7 Eos # (Auto) 0.0 Baso # (Auto) 0.1 Abs Immat Gran (auto) 0.02 Absolute Neuts (auto) 7.1 Absolute Nucleated RBC 0.000 Nucleated RBC % (auto) 0.0 Sodium Potassium Chloride Carbon Dioxide Anion Gap BUN Creatinine Estim Creat Clear Calc Estimated GFR Random Glucose Calcium Magnesium Total Bilirubin Direct Bilirubin AST ALT Alkaline Phosphatase Total Protein Albumin Lipase Urine Opiates Screen Not Detected Acetaminophen Ur Barbiturates Screen Not Detected Ur Phencyclidine Scrn Not Detected Ur Amphetamines Screen Not Detected U Benzodiazepines Scrn Not Detected Urine Cocaine Screen Not Detected U Marijuana (THC) Screen Not Detected Ethyl Alcohol COVID-19 (ALAN) Negative COVID-19 Clin Com See Note 02/24/21 02/24/21 08:31 08:31 WBC RBC Hgb Hct MCV MCH MCHC RDW Plt Count MPV Immature Gran % (Auto) Neut % (Auto) Lymph % (Auto) [place] % (Auto) Eos % (Auto) Baso % (Auto) Lymph # (Auto) [place] # (Auto) Eos # (Auto) Baso # (Auto) Abs Immat Gran (auto) Absolute Neuts (auto) Absolute Nucleated RBC Nucleated RBC % (auto) Sodium 141 Potassium 3.9 Chloride 105 Carbon Dioxide 26 Anion Gap 14 BUN 24 H Creatinine 1.17 Estim Creat Clear Calc 101.5 Estimated GFR > 60 Random Glucose 114 Calcium 9.8 Magnesium 2.4 Total Bilirubin 0.6 Direct Bilirubin 0.3 AST 126 H ALT 60 H Alkaline Phosphatase 61 Total Protein 7.4 Albumin 4.9 Lipase 99 H Urine Opiates Screen Acetaminophen < 1 Ur Barbiturates Screen Ur Phencyclidine Scrn Ur Amphetamines Screen U Benzodiazepines Scrn Urine Cocaine Screen U Marijuana (THC) Screen Ethyl Alcohol < 10 COVID-19 (ALAN) COVID-19 Clin Com Imaging Radiology Impressions: ITS Impressions Abdomen/Pelvis CT 02/24/21 13:18 IMPRESSION: Extremely limited examination as described. Mild hepatomegaly. Nephrolithiasis without evidence of hydronephrosis. Mental Status Exam Mental Status Exam Narrative: Well groomed, good hygiene, normal body habitus. Moderate eye contact, attentive. No Tics or Tremors. No abnormal involuntary movements. Calm, cooperative, but difficult to engage in meaningful conversation. Non-pressured speech, non-spontaneous, regular rate and rhythm, normal volume and prosody. No prolonged speech latency or dysarthria. Mood is ?great,? affect is constricted. Denies SI/SIB/HI upon inquiry. Denies A/VH or delusional thought content however has hx of latter-day preoccupation and responding to internal stimuli. Thoughts are concrete, intact. No known cognitive or memory impairment. Insight/ Judgment limited but adequate. Medications Medications Current Medications Generic Name Dose Route Start Last Admin Trade Name Freq PRN Reason Stop Dose Admin Pharmacy Consult 1 each 02/24/21 07:56 Consult Rx Perform Med Rec MISCELLANE ONCE PRN Consult order Allergies Allergies Allergy/AdvReac Type Severity Reaction Status Date / Time diphenhydramine Allergy Unknown unknown Verified 10/12/20 04:33 [From BENADRYL] haloperidol [From HALDOL] Allergy Unknown unknown Verified 10/12/20 04:33 Assessment & Plan Assessment & Plan (1) Schizoaffective disorder: Status: Acute Code(s): F25.9 - Schizoaffective disorder, unspecified Assessment and Plan: 25 y.o. male who carries a dx of schizoaffective disorder, bipolar type. He presents with sx of latter-day preoccupation, AH, and anxiety. He presented to crisis due to increased anxiety and latter-day delusions, referred by his friends due to concerns with psychosis. He is currently denying psychotic symptoms but appears constricted and responding to internal stimuli. He is calm, pleasant, and redirectable. In the milieu he is safe and appropriate in his behaviors. He asked for ativan but was accepting that I would not prescribe this. Discussed re-starting seroquel PRN as he says this has helped him with sleep in the past. Plan: 1. Start seroquel 50 mg BID PRN for agitation, poor sleep Greater than 50% of the session was spent on counseling and/or coordination of care Patient educated on: medication risk/benefits Informed Consent: understands
--- NOTE | 2021-02-24 17:19 | PC.NURSE ---
Nicotine patch provided to pt earlier in shift per pt request. He continues to wander around the unit at times speaking to himself quietly but is appropriate with communication when speaking directly to the pt. He was seen by crime prevention police officer.
--- NOTE | 2021-02-24 22:03 | PC.NURSE ---
[facility] clinician Chloe called and notified that patient has been accepted to [facility] in [place], [facility], [facility] 9 am on 02/25/2021, admitting MD is Kathya, patient just got out of shower after in shower over 45 minutes, VSS, will continue to monitor.
--- NOTE | 2021-02-25 03:57 | PC.NURSE ---
Patient is awake, in and out of room, mostly wandering in hallway, self dialoguing, responding to internal stimuli, refusing vital sign assessment, stating I am OK Patient is grossly disorganized, refused meds, will continue to monitor.
[2021-02-25] MEDS: LORazepam 1 MG TABLET 2 MG PO (04:30)
--- NOTE | 2021-02-25 04:34 | PC.NURSE ---
Patient attempted to exit forcefully by using whole body force, but was not aware what he was doing, apologized for his act immediately, security and staff in the POD for support, patient requested Ativan/provider notified/ordered Ativan 2 mg administered as ordered, will continue to monitor.
--- NOTE | 2021-02-25 07:11 | PC.NURSE ---
Patient just went to bed appears sleeping at this time, positive effect from Ativan, patient is accepted to [facility] 9 am, behavior is disorganized, self dialoguing, will continue to monitor.
--- NOTE | 2021-02-25 07:23 | PC.NURSE ---
patient remains at rest at present appears asleep with even unlabored breaths patient appears in no distress
[2021-02-25 09:10] LABS: Alanine Aminotransferase 57 U/L (0-40); Albumin Level 4.1 g/dL (3.5-5.0); Alkaline Phosphatase 51 U/L (39-117); Aspartate Amino Transferase 105 U/L (5-37); Bilirubin Direct < 0.2 mg/dL (0.0-0.5); Bilirubin Total 0.2 mg/dL (0.0-1.0); Lipase 135 U/L (8-78)
== END 2021-02-25 10:17 ==
PROVIDERS: Emergency Provider Emergency Medicine; PCP Internal Medicine
DX: F41.1 Generalized anxiety disorder (principal); F43.0 Acute stress reaction; F22 Delusional disorders; Z20.822 Contact with and (suspected) exposure to COVID-19; Z87.891 Personal history of nicotine dependence; Z79.899 Other long term (current) drug therapy
CPT/HCPCS: 36415; 74176; 80048; 80076; 80143; 80307; 82077; 83690; 83735; 85025; 87635; 99285

== ENCOUNTER 2021-03-06 14:42 | Inpatient (IN) | payer OTHER, MEDICAID, SELFPAY ==
--- NOTE | ~2021-03-06 | XR_ITS ---
EXAMINATION: XR ELBOW, RIGHT CLINICAL INFORMATION: Pain COMPARISON: None TECHNIQUE: Two views of the right elbow. FINDINGS: Bone alignment is normal. No fracture or dislocation is seen. The joint spaces are normal. There is a small joint effusion. Soft tissues are otherwise unremarkable XR/XR elbow RT 2V IMPRESSION: Small joint effusion. No fracture seen. If there is a history of trauma and clinical suspicion of fracture, follow-up x-ray in one week would be recommended.
[2021-03-06] MEDS: LORazepam 1 MG TABLET PO (15:44)
[2021-03-06 15:46] VITALS: BP 116/88; BP 123/72; PULSE 64; PULSE 80; RESP 18; TEMP 37; O2SAT 98; O2SAT 99; BMI 23.2
[2021-03-06 16:04] VITALS: BP 115/84; PULSE 81; RESP 16; TEMP 36.9; O2SAT 99
--- NOTE | 2021-03-06 16:05 | PC.NURSE ---
mother called and expresses please dont send back to [facility] hes no better-send to [facility] worker had also come in and left med list from [facility], in chart. mom phone [phone]
[2021-03-06 16:13] LABS: Glucose Urine UA NEG (NEG); Leukocyte Esterase Urine NEG (NEG); Nitrite Urine NEG (NEG); Specific Gravity - Urine >= 1.030 (1.005-1.025); Urine Blood NEG (NEG); Urine Ketones NEG (NEG); Urine Protein NEG (NEG-TRACE)
[2021-03-06 16:15] LABS: Appearance Urine CLEAR; Color Urine YELLOW
[2021-03-06 16:35] LABS: Amphetamine Screen Urine Not Detected (Not Detect); Barbiturates, Urine Not Detected (Not Detect); Benzodiazepines Screen Urine Not Detected (Not Detect); Cannabinoid Screen Urine Not Detected (Not Detect); Cocaine Screen Urine Not Detected (Not Detect); Fentanyl, urine Not Detected (Not Detect); Opiate Screen Urine Not Detected (Not Detect); Phencyclidine Screen Urine Not Detected (Not Detect)
--- NOTE | 2021-03-06 17:48 | ED_ITS ---
HPI - Psych General Chief Complaint: Psychiatric Symptoms Stated Complaint: psych eval Time Seen by Provider: 03/06/21 14:56 Source: patient Mode of arrival: ambulatory Limitations: no limitations History of Present Illness HPI Narrative: Patient presents to ED for psych evaluation. Patient was see discharge from [facility]. Patient has not been taking his meds. Patient is internally preoccupied. Grandparents called EMS for patient to be brought to ED for evaluation. Patient is not suicidal homicidal. Related Data Home Medications Medication Instructions Recorded Confirmed lorazepam 0.5 mg tablet (Ativan) 0.5 mg PO DAILY PRN 02/24/21 02/24/21 Allergies Allergy/AdvReac Type Severity Reaction Status Date / Time diphenhydramine Allergy Unknown unknown Verified 10/12/20 04:33 [From BENADRYL] haloperidol [From HALDOL] Allergy Unknown unknown Verified 10/12/20 04:33 Review of Systems Review of Systems: Patient is internally preoccupied Yes all other systems are reviewed and are negative Constitutional: Constitutional: Reports as per HPI and Reports no additional constitutional complaints Eyes: Eyes: Reports as per HPI and Reports no additional eye complaints ENT: Reports system reviewed and no additional complaints, except as documented and Reports as per HPI Cardiovascular: Cardiovascular: Reports as per HPI and Reports no additional cardiovascular complaints Respiratory: Respiratory: Reports as per HPI and Reports no additional respiratory complaints Gastrointestinal: Gastrointestinal: Reports as per HPI and Reports no additional gastrointestinal complaints Genitourinary: Genitourinary: Reports no additional male genitourinary co mplaints and Reports as per HPI Musculoskeletal: Musculoskeletal: Reports no additional musculoskeletal complaints and Reports as per HPI Neurologic: Reports system reviewed and no additional complaints, except as documented and Reports as per HPI Psychiatric: Psychiatric: Reports no additional psychiatric complaints and Reports as per HPI [facility] Past Medical History Medical History (Updated 03/06/21 @ 17:54 by LEANNA Mosley) Anxiety Schizoaffective disorder Social History Social History Alcohol intake: current Alcohol intake frequency: a few times a week Patient Tobacco Use Status: Former Tobacco user Advance Directives: No Advance Directives Information Provided: Yes Physical Exam Vital Signs: Vital Signs: Last Vital Signs Temp 98.4 F 03/06/21 16:04 Pulse 81 03/06/21 16:04 Resp 16 03/06/21 16:04 BP 115/84 03/06/21 16:04 Pulse Ox 99 03/06/21 16:04 Body Mass Index 23.2 Const: General: cooperative, healthy appearing, comfortable, no acute distress, well developed, alert, awake and Physically active Orientation/consciousness: patient oriented x3 HENMT: Head: Yes normal to inspection, Yes No palpable skull fracture present, Yes normocephalic and Yes atraumatic Eyes: General: appearance normal, both eyes and all related structures Neck: Neck: Yes normal visual inspection, Yes full ROM, Yes no lymphadenopathy, Yes no meningeal signs, Yes trachea midline, Yes supple and No tender Chest: Chest palpation & inspection: normal inspection of the chest and normal palpation of entire chest wall Resp: Effort & Inspection: normal respiratory effort and able to speak in complete sentences Auscultation: clear to auscultation bilaterally Cardio: Jugular venous distension: no JVD Heart sounds: S1 normal heart sound present and S2 normal heart sound present GI: Inspection: Yes normal to inspection and No abdominal wall ecchymosis Palpation (GI): Soft to palpation, not firm, nontender, no guarding and not rigid : General: No CVA tenderness and Yes no CVA tenderness Back/Spine/Pelvis: Back: no CVA tenderness, No CVA tenderness and No back tenderness Skin: General skin exam: no rashes or lesions noted and elasticity normal Neuro: General: patient oriented x3, no meningeal signs and CN's II-XI intact bilaterally Cranial nerves: Yes CN's II-XII intact bilaterally Extrem: General: Yes normal to inspection and Yes full ROM Psych: Other: Patient is internally preoccupied. Appearance: grossly normal and well ket Course Course Course Narrative: Patient is internally preoccupied. Will get [facility] evaluation. Reevaluation(s) Reevaluation #1: [email or web address] [facility] evaluated patient and recommended psych inpatient. Time: 17:53 MDM - Psych MDM Narrative Medical decision making narrative: Schizophrenia Lab Data Labs: Lab Results 03/06/21 03/06/21 Range/Units 16:06 16:06 Urine Color YELLOW Urine Appearance CLEAR Urine pH 6.0 (5.0-8.0) Ur Specific [place] >= 1.030 H (1.005-1.025) Urine Protein NEG (NEG-TRACE) MG/DL Urine Glucose (UA) NEG (NEG) MG/DL Urine Ketones NEG (NEG) MG/DL Urine Blood NEG (NEG) Urine Nitrite NEG (NEG) Ur Leukocyte Esterase NEG (NEG) Urine Opiates Screen Not Detected (Not Detect) Urine Fentanyl Screen Not Detected (Not Detect) Ur Barbiturates Screen Not Detected (Not Detect) Ur Phencyclidine Scrn Not Detected (Not Detect) Ur Amphetamines Screen Not Detected (Not Detect) U Benzodiazepines Scrn Not Detected (Not Detect) Urine Cocaine Screen Not Detected (Not Detect) U Marijuana (THC) Screen Not Detected (Not Detect) Discharge Plan Discharge Clinical Impression: Chronic schizophrenia Patient Disposition: Admitted As Inpatient
--- NOTE | 2021-03-07 05:48 | PC.NURSE ---
Patient slept through the night, no distress observed/reported, behavior appropriate, non adherent to medication, patient stated I refused all med accept lorazepam and I refused all paper work attempt was made to explain importance of medication for his mental health, patient stated, I am ok VSS, will continue to monitor.
[2021-03-07 06:11] VITALS: BP 108/66; PULSE 63; RESP 16; TEMP 36.7; O2SAT 100
[2021-03-07 06:11] LABS: COVID-19 Test Negative (Negative)
--- NOTE | 2021-03-07 07:23 | PC.NURSE ---
PT WALKING AROUND COMMON AREA. REQUESTING MORE FOOD. CLOSE OBSERVATION MAINTAINED. BEDSEARCH CONTINUES
--- NOTE | 2021-03-07 07:26 | PC.NURSE ---
PT TALKING TO SELF. RANDOMLY LAUGHING.
[2021-03-07] MEDS: Nicotine Polacrilex 2 MG GUM BUCCAL ×2 (14:39→21:31)
[2021-03-07 14:48] VITALS: BP 115/66; PULSE 94; TEMP 36.2; O2SAT 100
[2021-03-07 16:09] LABS: MANUAL DIFF FLAG NO
[2021-03-07 16:12] LABS: Basophils Absolute Auto 0.1 X10*3/uL (0.0-0.2); Basophils Percent Auto 0.6 % (0-2); Eosinophils Absolute Auto 0.2 X10*3/uL (0.0-0.4); Eosinophils Percent Auto 2.2 % (0-4); Hematocrit 44.2 % (42-52); Hemoglobin 15.3 g/dl (14.0-18.0); Imm Gran Abs Auto 0.02 X10*3/uL (0.00-0.03); Imm Gran Pct Auto 0.2 % (0.0-0.4); Lymphocytes Absolute Auto 2.5 X10*3/uL (1.2-4.9); Lymphocytes Percent Auto 29.7 % (20-40); Mean Corpuscular HGB Conc 34.6 g/dl (31.0-36.0); Mean Corpuscular Hemoglobin 31.7 pg (27.0-33.0); Mean Corpuscular Volume 91.5 fL (80-98); Mean Platelet Volume 9.2 fL (9.4-12.4); Monocytes Absolute Auto 0.6 X10*3/uL (0.1-1.2); Monocytes Percent Auto 7.5 % (2-11); Neutrophils Percent Auto 59.8 % (45-73); Platelet Count 233 X10*3/uL (160-400); Red Blood Count 4.83 X10*6/uL (4.60-5.80); White Blood Count 8.3 X10*3/uL (4.8-10.8)
[2021-03-07 16:37] LABS: Anion Gap 15 (12-20); Blood Urea Nitrogen 32 mg/dL (9-16); Calcium 9.3 mg/dL (8.4-10.2); Carbon Dioxide 25 mmol/L (22-29); Chloride 104 mmol/L (96-108); Creatinine Clr Calc Pharmacy 127.1; Estimated Glomerular Filt Rate > 60; Glucose Random 117 mg/dL (60-115); Potassium 4.4 mmol/L (3.3-5.1); Sodium 140 mmol/L (135-145)
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
[2021-03-07 20:50] VITALS: BP 141/83; PULSE 74; RESP 20; TEMP 36.9; O2SAT 100
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
[2021-03-08] MEDS: Nicotine Polacrilex 2 MG GUM BUCCAL ×8 (09:33→20:31)
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
[2021-03-08 18:25] VITALS: BP 124/67; PULSE 97; TEMP 36.8
[2021-03-09] MEDS: Nicotine Polacrilex 2 MG GUM BUCCAL ×5 (00:04→15:51)
[2021-03-09 16:09] VITALS: BP 112/65; PULSE 74; TEMP 36.9
--- NOTE | 2021-03-09 16:34 | HO.PSYCHPN ---
Subjective Subjective Date of Service: 03/10/21 Reason For Visit: Psychosis Interim History: pt seen on 03/09 race and sports book writer and Yudi met with patient who was alert, oriented and organized. He says he slept well and is in good mood. He continues to deny any SI or HI or AVH, though he is clearly internally preocupied and takes breaks in conversation to quietly self-dialogue. Pt says he would like to discharge and continues to say he does not want any medications. He explains that he lives on his own, in his own apartment, shops for himself and cooks his own food. He also talks about keeping his apartment nice so that he can ?flip it ?and make some money. He says though he does not have much money but he makes a little go a long way. Pt again asks race and sports book writer to contact his staff at [facility] whom he says know about my life and race and sports book writer reassured this was happening. Patient says he would be willing to stay on unit for 4 days and agrees to have his [facility] worker John come to unit for meeting. Patient has been eating mostly packaged crackers, sugars and pudding on the unit. Later in day, jerrod Lopez [facility] suction worker came to unit. He explains to race and sports book writer that patient was formerly able to maintain himself in the community but that something has changed and he feels patient has been getting less and less organized over the past few weeks. Later, after he met with patient he informed that patient reports he feels that hospital staff is trying to kill him by poisoning him and that his friend (who became afraid of patient and called crisis last week), his mother and hospital staff are all making up stuff about him. John also reported that his mother reports patient believes his neighbor has been attacking him with christian and asks for help to get rid of him. Medication Compliance: No Attending Groups: No Mental Status Exam Mental Status Exam Narrative: Pt is alert and oriented to self, place, but not situation; behavior is cooperative, friendly and calm; patient is not in distress; dressed in casual attire, a little scruffy but with adequate hygiene; mood is described as good and affect smiling but intermittently looks down and self-dialogues; eye contact appropriate; Speech is normal rate, volume and prosody and not pressured; no psychomotor agitation/retardation present; thought process is goal directed; Thought content is on getting discharged soon; Denies AVH though he is internally preoccupied; otherwise he's able to discuss relevant topics; some delusional, paranoid thoughts saying people (family, friend) are lying about him; denies any SI/HI.? Patients insight and judgment are impaired. Diagnostics Vital Signs (24Hr): Vital Signs - 24 hr 03/08/21 18:25 03/09/21 16:09 Temperature 98.2 F 98.4 F Pulse Rate 97 74 Blood Pressure 124/67 112/65 Body Mass Index 23.2 Labs Results: 03/07/21 16:03 03/07/21 16:03 Labs: Laboratory Results - last 48 hr 03/07/21 16:03 Sodium 140 Potassium 4.4 Chloride 104 Carbon Dioxide 25 Anion Gap 15 BUN 32 H Creatinine 1.03 Estim Creat Clear Calc 127.1 Estimated GFR > 60 Random Glucose 117 H Calcium 9.3 Medications Medications Current Medications Generic Name Dose Route Start Last Admin Trade Name Freq PRN Reason Stop Dose Admin Acetaminophen 650 mg 03/07/21 19:35 Acetaminophen 325 Mg Tablet PO Q6H PRN Headache/Pain Mild Scale (1-3) Al Hydroxide/Mg Hydroxide 30 ml 03/07/21 19:35 Magnesium Hydrox/Alum Hydrox 30 Ml Oral.Susp PO Q6H PRN Heartburn/Nausea Hydroxyzine HCl 25 mg 03/07/21 19:35 Hydroxyzine Hcl 25 Mg Tablet PO Q6H PRN Anxiety Lorazepam 2 mg 03/07/21 21:13 Lorazepam 1 Mg Tablet PO Q4H PRN anxiety Magnesium Hydroxide 30 ml 03/07/21 19:35 Milk Of Magnesia 30 Ml Oral.Susp PO DAILY PRN Constipation Nicotine Polacrilex 2 mg 03/08/21 11:06 03/09/21 15:51 Nicotine Polacrilex 2 Mg Gum BUCCAL 2 mg Q1H PRN Administration Nicotine Cravings Olanzapine 5 mg 03/07/21 21:13 Olanzapine 5 Mg Tablet PO Q4H PRN psychosis, agitation Omeprazole 20 mg 03/07/21 06:30 03/09/21 08:38 Omeprazole 20 Mg Capsule.Dr PO Not Given DAILY@0630 [facility] Trazodone HCl 50 mg 03/07/21 19:35 Trazodone Hcl 50 Mg Tablet PO BEDTIME PRN Insomnia Allergies Allergies Allergy/AdvReac Type Severity Reaction Status Date / Time diphenhydramine Allergy Unknown unknown Verified 10/12/20 04:33 [From BENADRYL] haloperidol [From HALDOL] Allergy Unknown unknown Verified 10/12/20 04:33 Assessment & Plan Assessment & Plan (1) Schizoaffective disorder: Qualifiers: Schizoaffective disorder type: bipolar Qualified Code(s): F25.0 - Schizoaffective disorder, bipolar type Status: Acute Code(s): F25.9 - Schizoaffective disorder, unspecified Assessment and Plan: Jose is a 25 y.o. male who carries a diagnosis of schizoaffective disorder who presents after his grandparents called the ambulance out of concern for patient's disorganized behavior.? On 02/24/2021 patient presented to [facility] ED disorganized and ED note reads: 25 yo male with hx of anxiety, review of records show schizoaffective disorder, EMS was called today due to the patient kneeling outside, being jittery, acting off, no SI statements made, EMS notes the patient was just staring off...ROS unable to be obtained due to patient not really answering questions... Patient was discharged from the ED.? reportedly he went to his friend's house, was again acting bizarrely, kneeling in the center of the room with his shirt off, talking in a disorganized way to the point where his friend became scared, called 911 or crisis and patient was admitted to [facility].? He was only there for a few days, [facility] was not contacted any was discharged without follow-up in place.? He then showed up at his grandparent's house, locked himself in their basement and was reportedly crying, not eating, not sleeping and talking, laughing to himself, saying people are telling him to commit suicide and crying, saying that aliens are coming.? Grandparents called for ambulance and patient was taken to [facility].? It was reported that on arrival to the emergency room he laid down on the bathroom floor. Patient initially presents as overall calm but has no insight, denies any of the past reported behaviors and repeatedly asks for discharge.? Patient does not want medications saying he does not need.? Patient remains on Section 12 B. He asked race and sports book writer to call [facility] staff since they know him well. Of note, pt has hx of agitation, aggression and last time at [place] M[facility], broke through locked fire exit by kicking in door and eloped -refusing medications -[facility] worker John who knows him well believes that patient is ?getting worse? and decompensating. As paranoid, persecutory delusions that hospital staff is trying to poison him. Patient has other paranoid, persecutory delusions that his neighbor is attacking him with christian and has asked for help to get rid of him; also patient believes his for mother, family, friend are lying about him which has resulted in hospitalization. -[facility] bottle caser agrees with civil commitment -Patient is on a Section 12. This is patient's 3rd presentation to a hospital in less than 2 weeks, and reportedly people in the community have been recently scared of him. He has seem to be CAH and Patient is reported to have made suicidal comments saying people are telling me to commit suicide. He has paranoid, persecutory delusions and is without any insight at all, refusing medications. Patient also has history of making verbal threats and being extremely agitative and destructive of property. At this time, team agrees that patient is at risk for harm to self or others and requires inpatient admission and medication for his and others safety. Team will petition the court for civil commitment and substituted judgment. Of note, discharge summary from 2018 reports that patient did well on Zyprexa 20 mg. PLAN: pt on SECTION 12b q15 min checks pt refuses medications olanzapine available as prn [facility] contacted (pt gave verbal permission to call and involve [facility] in his case) Greater than 50% of the session was spent on counseling and/or coordination of care Reason for contiued inpatient stay Substantial Risk for: harm to self, harm to others and rapid decompensation
[2021-03-10 06:00] VITALS: BP 133/63; PULSE 91; RESP 14
[2021-03-10 07:00] VITALS: BMI 20.9
[2021-03-10] MEDS: Nicotine Polacrilex 2 MG GUM BUCCAL ×3 (09:05→20:54)
--- NOTE | 2021-03-10 12:13 | P.PNPSI_ITS ---
Subjective Subjective Date of Service: 03/10/21 Reason For Visit: Psychosis Interim History: Renewable Energy Technician met with patient to discuss team's decision to petition for civil commitment and substituted judgment. Patient became agitated with some posturing, saying he will never take medications no matter what. Patient launched into a diatribe accusing the hospital of being corrupt, of abusing pe ople and giving people bad medications that are harmful. Patient said you probably want me to take Zyprexa but that is a bad medication and causes restless legs out on a be curled up on the bed. Renewable Energy Technician tried to share that patient's admission during 2018 reported that on Zyprexa he did quite well, felt happy alert and stable. However patient said this is completely untrue. He said if you gotta go to court fine he is in care but he is not going to take medications. Patient did come down some and said he is only willing to take Ativan 1 mg as a p.r.n. and Seroquel 100 mg at bedtime. Renewable Energy Technician agreed to put this in for now and no more. Patient then said thank you very much and interview was concluded. Renewable Energy Technician felt the need to have security on standby however patient remained and self-control. later that day, underwriter solicitation director overheard patient standing by himself in hallway saying John..John..my soul, my soul...John..my soul and some other inaudible words. Mental Status Exam Mental Status Exam Narrative: Pt is alert and oriented to self, place, but not situation; behavior is agitated, sometimes posturing toward underwriter solicitation director; dressed in casual attire, a little scruffy but with adequate hygiene; mood is described as angry and affect congruent; eye contact intense, glaring; Speech is a little pressured but normal volume and prosody; some psychomotor agitation present; thought process is goal directed; Thought content is on anger that he's not being discharged and corruption of hospital; Denies AVH though he remains internally preoccupied; otherwise he's able to discuss relevant topics; delusional, paranoid thoughts saying people (family, friend) are lying about him; hospital corrupt; denies any SI/HI.? Patients insight and judgment are impaired. Diagnostics Vital Signs (24Hr): Vital Signs - 24 hr 08/18/21 16:09 Temperature 98.4 F Pulse Rate 74 Blood Pressure 112/65 Body Mass Index 23.2 Labs Results: 03/07/21 16:03 03/07/21 16:03 Medications Medications Current Medications Generic Name Dose Route Start Last Admin Trade Name Freq PRN Reason Stop Dose Admin Acetaminophen 650 mg 03/07/21 19:35 Acetaminophen 325 Mg Tablet PO Q6H PRN Headache/Pain Mild Scale (1-3) Al Hydroxide/Mg Hydroxide 30 ml 03/07/21 19:35 Magnesium Hydrox/Alum Hydrox 30 Ml Oral.Susp PO Q6H PRN Heartburn/Nausea Hydroxyzine HCl 25 mg 03/07/21 19:35 Hydroxyzine Hcl 25 Mg Tablet PO Q6H PRN Anxiety Lorazepam 2 mg 03/07/21 21:13 Lorazepam 1 Mg Tablet PO Q4H PRN anxiety Magnesium Hydroxide 30 ml 03/07/21 19:35 Milk Of Magnesia 30 Ml Oral.Susp PO DAILY PRN Constipation Nicotine Polacrilex 2 mg 03/08/21 11:06 03/10/21 09:05 Nicotine Polacrilex 2 Mg Gum BUCCAL 2 mg Q1H PRN Administration Nicotine Cravings Olanzapine 5 mg 03/07/21 21:13 Olanzapine 5 Mg Tablet PO Q4H PRN psychosis, agitation Omeprazole 20 mg 03/07/21 06:30 03/10/21 09:06 Omeprazole 20 Mg Capsule. PO Not Given DAILY@0630 [facility] Trazodone HCl 50 mg 03/07/21 19:35 Trazodone Hcl 50 Mg Tablet PO BEDTIME PRN Insomnia Allergies Allergies Allergy/AdvReac Type Severity Reaction Status Date / Time diphenhydramine Allergy Unknown unknown Verified 10/12/20 04:33 [From BENADRYL] haloperidol [From HALDOL] Allergy Unknown unknown Verified 10/12/20 04:33 Assessment & Plan Assessment & Plan (1) Schizoaffective disorder: Qualifiers: Schizoaffective disorder type: bipolar Qualified Code(s): F25.0 - Schizoaffective disorder, bipolar type Status: Acute Code(s): F25.9 - Schizoaffective disorder, unspecified Assessment and Plan: Jose is a 25 y.o. male who carries a diagnosis of schizoaffective disorder who presents after his grandparents called the ambulance out of concern for patient's disorganized behavior.? On 02/24/2021 patient presented to [facility] ED disorganized and ED note reads: 25 yo male with hx of anxiety, review of records show schizoaffective disorder, EMS was called today due to the patient kneeling outside, being jittery, acting off, no SI statements made, EMS notes the patient was just staring off...ROS unable to be obtained due to patient not really answering questions... Patient was discharged from the ED.? reportedly he went to his friend's house, was again acting bizarrely, kneeling in the center of the room with his shirt off, talking in a disorganized way to the point where his friend became scared, called 911 or crisis and patient was admitted to [facility].? He was only there for a few days, [facility] was not contacted any was discharged without follow-up in place.? He then showed up at his grandparent's house, locked himself in their basement and was reportedly crying, not eating, not sleeping and talking, laughing to himself, saying people are telling him to commit suicide and crying, saying that aliens are coming.? Grandparents called for ambulance and patient was taken to [facility].? It was reported that on arrival to the emergency room he laid down on the bathroom floor. Patient initially presents as overall calm but has no insight, denies any of the past reported behaviors and repeatedly asks for discharge.? Patient does not want medications saying he does not need.? Patient remains on Section 12 B. He asked underwriter solicitation director to call [facility] staff since they know him well. Of note, pt has hx of agitation, aggression and last time at [place] M5, broke through locked fire exit by kicking in door and eloped -refusing medications -[facility] worker John who knows him well believes that patient is ?getting worse? and decompensating.? As paranoid, persecutory delusions that hospital staff is trying to poison him.? Patient has other paranoid, persecutory delusions that his neighbor is attacking him with nondenominational and has asked for help to get rid of him; also patient believes his for mother, family, friend are lying about him which has resulted in hospitalization.? -[facility] case investigator agrees with civil commitment -Patient is on a Section 12. This is patient's 3rd presentation to a hospital in less than 2 weeks, and reportedly people in the community have been recently scared of him. He has seem to be CAH and Patient is reported to have made suicidal comments saying people are telling me to commit suicide. He has paran oid, persecutory delusions and is without any insight at all, refusing medications.? Patient also has history of making verbal threats and being extremely agitative and destructive of property.? At this time, team agrees that patient is at risk for harm to self or others and requires inpatient admission and medication for his and others safety.? Team will petition the court for civil commitment and substituted judgment. Of note, discharge summary from 2018 reports that patient did well on Zyprexa 20 mg. PLAN: pt on SECTION 12b q15 min checks Seroqeul 100mg at bedtime (pt agrees to this) Ativan 1mg prn for panic/anxiety (pt asks for this) olanzapine available as prn since report from notes says effective [facility] contacted (pt gave verbal permission to call and involve [facility] in his case) Greater than 50% of the session was spent on counseling and/or coordination of care Reason for contiued inpatient stay Substantial Risk for: harm to self, harm to others and rapid decompensation
[2021-03-10 16:10] VITALS: BP 155/67; PULSE 84; TEMP 36.7
[2021-03-11] MEDS: Nicotine Polacrilex 2 MG GUM BUCCAL ×3 (06:58→19:00)
[2021-03-11 13:07] VITALS: BP 150/68; PULSE 99; RESP 18; TEMP 37.1; O2SAT 97
--- NOTE | 2021-03-11 14:16 | HO.PSYCHPN ---
Subjective Subjective Date of Service: 03/11/21 Reason For Visit: Psychosis Interim History: Patient lying in bed talking inaudibly to himself. Process Improvement Manager asks patient how he is doing and he looks at radio script writer and says he is alright but then goes back to mumbling to himself. Patient is willing to interact with Process Improvement Manager enough for him to say that he denies any SI or HI; he also denies worrying that his neighbor was attacking him with yarsanism. Process Improvement Manager asked patient would be willing to increase his Seroquel to 200 mg but patient said he is not. Patient returns to [facility] to himself and interview concluded Of note, last night patient got moderately agitated and staff reports he kicked the door and was difficult to redirect however ultimately was willing to do so. Unfortunately, Seroquel 100 mg was not ordered as it was intended for bedtime dose; orders is in now Mental Status Exam Mental Status Exam Narrative: Alert to self, place but not situation; Pt is lying in bed under covers, mumbling to himself; pt's hair unkempt; mood is alright but affect blunted; minimal eye contact; Speech is soft; some psychomotor retardation present; thought process is goal directed; Thought content is hard to assess; Denies AVH though he remains internally preoccupied; delusional, paranoid thoughts saying people (family, friend) are lying about him; hospital corrupt; denies any SI/HI.? Patients insight and judgment are impaired. Diagnostics Vital Signs (24Hr): Vital Signs - 24 hr 03/10/21 16:10 03/11/21 13:07 Temperature 98.1 F 98.8 F Pulse Rate 84 99 Respiratory Rate 18 Blood Pressure 155/67 H 150/68 H Pulse Oximetry 97 Body Mass Index 20.9 Labs Results: 03/07/21 16:03 03/07/21 16:03 Medications Medications Current Medications Generic Name Dose Route Start Last Admin Trade Name Freq PRN Reason Stop Dose Admin Acetaminophen 650 mg 03/07/21 19:35 Acetaminophen 325 Mg Tablet PO Q6H PRN Headache/Pain Mild Scale (1-3) Al Hydroxide/Mg Hydroxide 30 ml 03/07/21 19:35 Magnesium Hydrox/Alum Hydrox 30 Ml Oral.Susp PO Q6H PRN Heartburn/Nausea Lorazepam 1 mg 03/10/21 14:47 Lorazepam 1 Mg Tablet PO Q4H PRN anxiety Magnesium Hydroxide 30 ml 03/07/21 19:35 Milk Of Magnesia 30 Ml Oral.Susp PO DAILY PRN Constipation Nicotine Polacrilex 2 mg 03/08/21 11:06 03/11/21 06:58 Nicotine Polacrilex 2 Mg Gum BUCCAL 2 mg Q1H PRN Administration Nicotine Cravings Olanzapine 10 mg 03/10/21 14:48 Olanzapine 10 Mg Tablet PO Q4H PRN agitation Omeprazole 20 mg 03/11/21 09:50 Omeprazole 20 Mg Capsule.Dr PO DAILY PRN GERD Quetiapine Fumarate 100 mg 03/11/21 21:00 Quetiapine Fumarate 100 Mg Tablet PO BEDTIME EUGENIA Allergies Allergies Allergy/AdvReac Type Severity Reaction Status Date / Time diphenhydramine Allergy Unknown unknown Verified 10/12/20 04:33 [From BENADRYL] haloperidol [From HALDOL] Allergy Unknown unknown Verified 10/12/20 04:33 Assessment & Plan Assessment & Plan (1) Schizoaffective disorder: Qualifiers: Schizoaffective disorder type: bipolar Qualified Code(s): F25.0 - Schizoaffective disorder, bipolar type Status: Acute Code(s): F25.9 - Schizoaffective disorder, unspecified Assessment and Plan: Jose is a 25 y.o. male who carries a diagnosis of schizoaffective disorder who presents after his grandparents called the ambulance out of concern for patient's disorganized behavior.? On 02/24/2021 patient presented to [facility] ED disorganized and ED note reads: 25 yo male with hx of anxiety, review of records show schizoaffective disorder, EMS was called today due to the patient kneeling outside, being jittery, acting off, no SI statements made, EMS notes the patient was just staring off...ROS unable to be obtained due to patient not really answering questions... Patient was discharged from the ED.? reportedly he went to his friend's house, was again acting bizarrely, kneeling in the center of the room with his shirt off, talking in a disorganized way to the point where his friend became scared, called 911 or crisis and patient was admitted to [facility].? He was only there for a few days, [facility] was not contacted any was discharged without follow-up in place.? He then showed up at his grandparent's house, locked himself in their basement and was reportedly crying, not eating, not sleeping and talking, laughing to himself, saying people are telling him to commit suicide and crying, saying that aliens are coming.? Grandparents called for ambulance and patient was taken to [facility].? It was reported that on arrival to the emergency room he laid down on the bathroom floor. Patient initially presents as overall calm but has no insight, denies any of the past reported behaviors and repeatedly asks for discharge.? Patient does not want medications saying he does not need.? Patient remains on Section 12 B. He asked radio script writer to call [facility] staff since they know him well. Of note, pt has hx of agitation, aggression and last time at [place] M5, broke through locked fire exit by kicking in door and eloped -refusing medications -[facility] worker John who knows him well believes that patient is ?getting worse? and decompensating.? As paranoid, persecutory delusions that hospital staff is trying to poison him.? Patient has other paranoid, persecutory delusions that his neighbor is attacking him with yarsanism and has asked for help to get rid of him; also patient believes his for mother, family, friend are lying about him which has resulted in hospitalization.? -[facility] mattress spring encaser agrees with civil commitment -Patient is on a Section 12. This is patient's 3rd presentation to a hospital in less than 2 weeks, and reportedly people in the community have been recently scared of him. He has seem to be CAH and Patient is reported to have made suicidal comments saying people are telling me to commit suicide. He has paranoid, persecutory delusions and is without any insight at all, refusing medications.? Patient also has history of making verbal threats and being extremely agitative and destructive of property.? At this time, team agrees that patient is at risk for harm to self or others and requires inpatient admission and medication for his and others safety.? Team will petition the court for civil commitment and substituted judgment. Of note, discharge summary from 2018 reports that patient did well on Zyprexa 20 mg. PLAN: pt on SECTION 12b q15 min checks Seroqeul 100mg at bedtime (pt agrees to this) Ativan 1mg prn for panic/anxiety (pt asks for this) olanzapine available as prn since report from notes says effective [facility] contacted (pt gave verbal permission to call and involve [facility] in his case) Greater than 50% of the session was spent on counseling and/or coordination of care Reason for contiued inpatient stay Substantial Risk for: harm to self, harm to others and rapid decompensation
--- NOTE | 2021-03-11 14:31 | PC.NURSE ---
Pt continues to have negative self dialogue while on the unit. The ones that aren't innocent will ,they have to. Refused offers of PRN medication. No thank-you I won't take medications. Refused to sign consent for the hospital staff to speak with his mother,became angry and stated No let her call me here.
[2021-03-11 16:21] VITALS: BP 131/69; PULSE 81; TEMP 37
[2021-03-12] MEDS: Nicotine Polacrilex 2 MG GUM BUCCAL ×7 (01:43→23:15)
[2021-03-12] MEDS: LORazepam 1 MG TABLET PO ×3 (09:55→23:15)
[2021-03-12 10:00] VITALS: BP 136/72; PULSE 93; RESP 18; TEMP 37.1; O2SAT 95
[2021-03-12 16:16] VITALS: RESP 16
--- NOTE | 2021-03-12 21:37 | HO.PSYCHPN ---
Subjective Subjective Date of Service: 03/12/21 Reason For Visit: Psychosis Subjective Notes: Section 7 Interim History: pt very psychotic, talking to himslef in hallway; appears to be responding to internal stimuli; labile mood, tallking loudly in hallway saying he is talking to girlfriend on phone but he has no phone. Medication Compliance: Intermittent Side effects from medications: No Review of Systems Acute medical concerns: No Medical Review of Systems: unchanged Review of Systems Review of Systems Patient is internally preoccupied Yes all other systems are reviewed and are negative Constitutional: Reports as per HPI and Reports no additional constitutional complaints Eyes: Reports as per HPI and Reports no additional eye complaints Reports system reviewed and no additional complaints, except as documented and Reports as per HPI Cardiovascular: Reports as per HPI and Reports no additional cardiovascular complaints Respiratory: Reports as per HPI and Reports no additional respiratory complaints Gastrointestinal: Reports as per HPI and Reports no additional gastrointestinal complaints Genitourinary: Reports no additional male genitourinary complaints and Reports as per HPI Musculoskeletal: Reports no additional musculoskeletal complaints and Reports as per HPI Reports system reviewed and no additional complaints, except as documented and Reports as per HPI Psychiatric: Reports no additional psychiatric complaints and Reports as per HPI Mental Status Exam Mental Status Exam Patient Appearance: Disheveled, Unkempt and Bizarre Level of Consciousness: Awake, Restless and Alert Patient Behavior: Restless, Anxious, Distractible and Confused Mood Description: Euphoric, Suspicious, Hostile, Anxious and Labile Affect Description: Suspicious, Anxious and Labile Ability to Follow Directions: Poor Speech Pattern: Garbled, Spontaneous Speech, Rambling, Cofabulation and Inappropriate Hallucinations: Auditory Delusions: Ideas of Reference Perceptual Disturbances: Hallucinations Thought Process: Incoherent and Distracted Thought Content: positive for Preoccupation and positive for Loose Associations Judgement: Poor Diagnostics Vital Signs (24Hr): Vital Signs - 24 hr 03/12/21 10:00 03/12/21 16:16 Temperature 98.8 F Pulse Rate 93 Respiratory Rate 18 16 Blood Pressure 136/72 Pulse Oximetry 95 Body Mass Index 20.9 Labs Results: 03/07/21 16:03 03/07/21 16:03 Medications Medications Current Medications Generic Name Dose Route Start Last Admin Trade Name Freq PRN Reason Stop Dose Admin Acetaminophen 650 mg 03/07/21 19:35 Acetaminophen 325 Mg Tablet PO Q6H PRN Headache/Pain Mild Scale (1-3) Al Hydroxide/Mg Hydroxide 30 ml 03/07/21 19:35 Magnesium Hydrox/Alum Hydrox 30 Ml Oral.Susp PO Q6H PRN Heartburn/Nausea Lorazepam 1 mg 03/10/21 14:47 03/12/21 14:38 Lorazepam 1 Mg Tablet PO 1 mg Q4H PRN Administration anxiety Magnesium Hydroxide 30 ml 03/07/21 19:35 Milk Of Magnesia 30 Ml Oral.Susp PO DAILY PRN Constipation Nicotine Polacrilex 2 mg 03/08/21 11:06 03/12/21 19:49 Nicotine Polacrilex 2 Mg Gum BUCCAL 2 mg Q1H PRN Administration Nicotine Cravings Olanzapine 10 mg 03/10/21 14:48 Olanzapine 10 Mg Tablet PO Q4H PRN agitation Omeprazole 20 mg 03/11/21 09:50 Omeprazole 20 Mg Capsule.Dr PO DAILY PRN GERD Quetiapine Fumarate 100 mg 03/11/21 21:00 03/12/21 21:04 Quetiapine Fumarate 100 Mg Tablet PO Not Given BEDTIME EUGENIA Allergies Allergies Allergy/AdvReac Type Severity Reaction Status Date / Time diphenhydramine Allergy Unknown unknown Verified 10/12/20 04:33 [From BENADRYL] haloperidol [From HALDOL] Allergy Unknown unknown Verified 10/12/20 04:33 Assessment & Plan Assessment & Plan (1) Schizoaffective disorder: Qualifiers: Schizoaffective disorder type: bipolar Qualified Code(s): F25.0 - Schizoaffective disorder, bipolar type Status: Acute Code(s): F25.9 - Schizoaffective disorder, unspecified Assessment and Plan: Jose is a 25 y.o. male who carries a diagnosis of schizoaffective disorder who presents after his grandparents called the ambulance out of concern for patient's disorganized behavior.? On 02/24/2021 patient presented to [facility] ED disorganized and ED note reads: 25 yo male with hx of anxiety, review of records show schizoaffective disorder, EMS was called today due to the patient kneeling outside, being jittery, acting off, no SI statements made, EMS notes the patient was just staring off...ROS unable to be obtained due to patient not really answering questions... Patient was discharged from the ED.? reportedly he went to his friend's house, was again acting bizarrely, kneeling in the center of the room with his shirt off, talking in a disorganized way to the point where his friend became scared, called 911 or crisis and patient was admitted to [facility].? He was only there for a few days, [facility] was not contacted any was discharged without follow-up in place.? He then showed up at his grandparent's house, locked himself in their basement and was reportedly crying, not eating, not sleeping and talking, laughing to himself, saying people are telling him to commit suicide and crying, saying that aliens are coming.? Grandparents called for ambulance and patient was taken to [facility].? It was reported that on arrival to the emergency room he laid down on the bathroom floor. Patient initially presents as overall calm but has no insight, denies any of the past reported behaviors and repeatedly asks for discharge.? Patient does not want medications saying he does not need.? Patient remains on Section 12 B. He asked travel writer to call [facility] staff since they know him well. Of note, pt has hx of agitation, aggression and last time at [place] [id number], broke through locked fire exit by kicking in door and eloped -refusing medications -[facility] worker John who knows him well believes that patient is ?getting worse? and decompensating.? As paranoid, persecutory delusions that hospital staff is trying to poison him.? Patient has other paranoid, persecutory delusions that his neighbor is attacking him with lutheran and has asked for help to get rid of him; also patient believes his for mother, family, friend are lying about him which has resulted in hospitalization.? -[facility] porter sample case agrees with civil commitment -Patient is on a Section 12. This is patient's 3rd presentation to a hospital in less than 2 weeks, and reportedly people in the community have been recently scared of him. He has seem to be CAH and Patient is reported to have made suicidal comments saying people are telling me to commit suicide. He has paranoid, persecutory delusions and is without any insight at all, refusing medications.? Patient also has history of making verbal threats and being extremely agitative and destructive of property.? At this time, team agrees that patient is at risk for harm to self or others and requires inpatient admission and medication for his and others safety.? Team will petition the court for civil commitment and substituted judgment. Of note, discharge summary from 2018 reports that patient did well on Zyprexa 20 mg. PLAN: pt admitted on SECTION 12b currently on section 7 q15 min checks Seroqeul 100mg at bedtime (pt agrees to this) Ativan 1mg prn for panic/anxiety (pt asks for this) olanzapine available as prn since report from notes says effective [facility] contacted (pt gave verbal permission to call and involve [facility] in his case) Greater than 50% of the session was spent on counseling and/or coordination of care Reason for contiued inpatient stay Substantial Risk for: harm to self, harm to others, inability to function, rapid decompensation and med/psych decompensation
[2021-03-13 06:00] VITALS: BP 126/56; PULSE 108; RESP 18; TEMP 36.8; O2SAT 96
[2021-03-13] MEDS: LORazepam 1 MG TABLET PO ×3 (08:42→21:30)
[2021-03-13] MEDS: Nicotine Polacrilex 2 MG GUM BUCCAL ×6 (08:42→21:30)
--- NOTE | 2021-03-13 12:13 | P.PNPSI_ITS ---
Subjective Subjective Date of Service: 03/13/21 Reason For Visit: Psychosis Subjective Notes: Section 7 Interim History: Refusing antipsychotics medication; accepting ativan. pt very psychotic, talking/laughing to himslef in hallway; physically intrusive at times; appears to be responding to internal stimuli; labile mood, talking loudly in hallway, crouching on floor, looking into other rooms taking about , mumbling, illogical Medication Compliance: Yes Side effects from medications: No Attending Groups: No Review of Systems Acute medical concerns: No Medical Review of Systems: unchanged Review of Systems Review of Systems Patient is internally preoccupied Yes all other systems are reviewed and are negative Constitutional: Reports as per HPI and Reports no additional constitutional complaints Eyes: Reports as per HPI and Reports no additional eye complaints Reports system reviewed and no additional complaints, except as documented and Reports as per HPI Cardiovascular: Reports as per HPI and Reports no additional cardiovascular complaints Respiratory: Reports as per HPI and Reports no additional respiratory complaints Gastrointestinal: Reports as per HPI and Reports no additional gastrointestinal complaints Genitourinary: Reports no additional male genitourinary complaints and Reports as per HPI Musculoskeletal: Reports no additional musculoskeletal complaints and Reports as per HPI Reports system reviewed and no additional complaints, except as documented and Reports as per HPI Psychiatric: Reports no additional psychiatric complaints and Reports as per HPI Mental Status Exam Mental Status Exam Patient Appearance: Disheveled, Unkempt and Bizarre Level of Consciousness: Awake, Restless and Alert Patient Behavior: Restless, Wandering, Anxious, Invasion - Personal Space, Distractible, Confused and Poor Eye Contact Mood Description: Euphoric, Suspicious, Hostile, Anxious and Labile Affect Description: Suspicious, Anxious and Labile Ability to Follow Directions: Poor Speech Pattern: Garbled, Spontaneous Speech, Rambling, Mumbled, Inappropriate, Excessive and Loud Hallucinations: Auditory and Visual Delusions: Paranoid Ideation and Bizarre Thought Process: Incoherent and Illogical Thought Content: positive for Incoherent and positive for Disorganized Judgement: Poor Diagnostics Vital Signs (24Hr): Vital Signs - 24 hr 03/12/21 16:16 03/13/21 06:00 Temperature 98.2 F Pulse Rate 108 H Respiratory Rate 16 18 Blood Pressure 126/56 L Pulse Oximetry 96 Body Mass Index 20.9 Labs Results: 03/07/21 16:03 03/07/21 16:03 Medications Medications Current Medications Generic Name Dose Route Start Last Admin Trade Name Freq PRN Reason Stop Dose Admin Acetaminophen 650 mg 03/07/21 19:35 Acetaminophen 325 Mg Tablet PO Q6H PRN Headache/Pain Mild Scale (1-3) Al Hydroxide/Mg Hydroxide 30 ml 03/07/21 19:35 Magnesium Hydrox/Alum Hydrox 30 Ml Oral.Susp PO Q6H PRN Heartburn/Nausea Lorazepam 1 mg 03/10/21 14:47 03/13/21 08:42 Lorazepam 1 Mg Tablet PO 1 mg Q4H PRN Administration anxiety Magnesium Hydroxide 30 ml 03/07/21 19:35 Milk Of Magnesia 30 Ml Oral.Susp PO DAILY PRN Constipation Nicotine Polacrilex 2 mg 03/08/21 11:06 03/13/21 11:06 Nicotine Polacrilex 2 Mg Gum BUCCAL 2 mg Q1H PRN Administration Nicotine Cravings Olanzapine 10 mg 03/10/21 14:48 Olanzapine 10 Mg Tablet PO Q4H PRN agitation Omeprazole 20 mg 03/11/21 09:50 Omeprazole 20 Mg Capsule.Dr PO DAILY PRN GERD Quetiapine Fumarate 100 mg 03/11/21 21:00 03/12/21 21:04 Quetiapine Fumarate 100 Mg Tablet PO Not Given BEDTIME EUGENIA Allergies Allergies Allergy/AdvReac Type Severity Reaction Status Date / Time diphenhydramine Allergy Unknown unknown Verified 10/12/20 04:33 [From BENADRYL] haloperidol [From HALDOL] Allergy Unknown unknown Verified 10/12/20 04:33 Assessment & Plan Assessment & Plan (1) Schizoaffective disorder: Qualifiers: Schizoaffective disorder type: bipolar Qualified Code(s): F25.0 - Schizoaffective disorder, bipolar type Status: Acute Code(s): F25.9 - Schizoaffective disorder, unspecified Assessment and Plan: Jose is a 25 y.o. male who carries a diagnosis of schizoaffective disorder who presents after his grandparents called the ambulance out of concern for jacklyn sotola's disorganized behavior.? On 02/24/2021 patient presented to [facility] ED disorganized and ED note reads: 25 yo male with hx of anxiety, review of records show schizoaffective disorder, EMS was called today due to the patient kneeling outside, being jittery, acting off, no SI statements made, EMS notes the patient was just staring off...ROS unable to be obtained due to patient not really answering questions... Patient was discharged from the ED.? reportedly he went to his friend's house, was again acting bizarrely, kneeling in the center of the room with his shirt off, talking in a disorganized way to the point where his friend became scared, called 911 or crisis and patient was admitted to [facility].? He was only there for a few days, [facility] was not contacted any was discharged without follow-up in place.? He then showed up at his grandparent's house, locked himself in their basement and was reportedly crying, not eating, not sleeping and talking, laughing to himself, saying people are telling him to commit suicide and crying, saying that aliens are coming.? Grandparents called for ambulance and patient was taken to [facility].? It was reported that on arrival to the emergency room he laid down on the bathroom floor. Patient initially presents as overall calm but has no insight, denies any of the past reported behaviors and repeatedly asks for discharge.? Patient does not want medications saying he does not need.? Patient remains on Section 12 B. He asked designer writer to call [facility] staff since they know him well. Of note, pt has hx of agitation, aggression and last time at [place], broke through locked fire exit by kicking in door and eloped -refusing medications -[facility] worker John who knows him well believes that patient is ?getting worse? and decompensating.? As paranoid, persecutory delusions that hospital staff is trying to poison him.? Patient has other paranoid, persecutory delusions that his neighbor is attacking him with advent and has asked for help to get rid of him; also patient believes his for mother, family, friend are lying about him which has resulted in hospitalization.? -[facility] casework manager agrees with civil commitment -Patient is on a Section 12. This is patient's 3rd presentation to a hospital in less than 2 weeks, and reportedly people in the community have been recently scared of him. He has seem to be CAH and Patient is reported to have made suicidal comments saying people are telling me to commit suicide. He has paranoid, persecutory delusions and is without any insight at all, refusing m edications.? Patient also has history of making verbal threats and being extremely agitative and destructive of property.? At this time, team agrees that patient is at risk for harm to self or others and requires inpatient admission and medication for his and others safety.? Team will petition the court for civil commitment and substituted judgment. Of note, discharge summary from 2018 reports that patient did well on Zyprexa 20 mg. PLAN: pt admitted on SECTION 12b currently on section 7 q15 min checks Encourage Seroqeul 100mg at bedtime (pt agrees to this) Ativan 1mg prn for panic/anxiety (pt asks for this) Encourage olanzapine available as prn since report from notes says effective [facility] contacted (pt gave verbal permission to call and involve [facility] in his case) Greater than 50% of the session was spent on counseling and/or coordination of care Reason for contiued inpatient stay Substantial Risk for: harm to self, inability to function, rapid decompensation and med/psych decompensation
[2021-03-13 16:55] VITALS: BP 122/63; PULSE 106; RESP 18; TEMP 36.7; O2SAT 96
[2021-03-14] MEDS: Nicotine Polacrilex 2 MG GUM BUCCAL ×7 (01:43→19:57)
[2021-03-14] MEDS: LORazepam 1 MG TABLET PO ×2 (13:49→18:05)
--- NOTE | 2021-03-14 14:18 | P.PNPSI_ITS ---
Subjective Subjective Date of Service: 03/14/21 Reason For Visit: Psychosis Interim History: pt found standing in his room inspecting his breakfast. it was well after usual breakfast time and he was asking where the tray was. i suggested perhaps someone had come by to collect the tray but had left his food for him to eat. he seemed to accept this explanation. introduced himself an d identified his role. apparent acknowledgement of the statements but no response. asked if there were anything MD could do for pt today, and he responded, get me out of here. MD informed pt that MD was unable to do that for him but that there would be a hearing with a proof technician on at which the question would be decided. pt said, i don't approve, i don't approve repeatedly after. MD attempted to redirect to more productive interaction by asking about pt's eating, sleeping, getting along with others. pt briefly answered those questions with nods, indicating he is eating well, sleeping well, and getting along with others well. otherwise he perseverated with saying, i don't approve. MD let him know to be in touch with staff scientist should he need anything from MD and RN can alert MD. Mental Status Exam Mental Status Exam Patient Appearance: Disheveled, Unkempt and Bizarre Level of Consciousness: Awake, Restless and Alert Patient Behavior: Restless, Wandering, Anxious, Invasion - Personal Space, Distractible, Confused and Poor Eye Contact Mood Description: Euphoric, Suspicious, Hostile, Anxious and Labile Affect Description: Suspicious, Anxious and Labile Ability to Follow Directions: Poor Speech Pattern: Garbled, Spontaneous Speech, Rambling, Mumbled, Inappropriate and Excessive Thought Process: Incoherent and Illogical Thought Content: positive for Incoherent and positive for Disorganized Judgement: Poor Diagnostics Vital Signs (24Hr): Vital Signs - 24 hr 03/13/21 16:55 Temperature 98.1 F Pulse Rate 106 H Respiratory Rate 18 Blood Pressure 122/63 Pulse Oximetry 96 Body Mass Index 20.9 Labs Results: 03/07/21 16:03 03/07/21 16:03 Medications Medications Current Medications Generic Name Dose Route Start Last Admin Trade Name Freq PRN Reason Stop Dose Admin Acetaminophen 650 mg 03/07/21 19:35 Acetaminophen 325 Mg Tablet PO Q6H PRN Headache/Pain Mild Scale (1-3) Al Hydroxide/Mg Hydroxide 30 ml 03/07/21 19:35 Magnesium Hydrox/Alum Hydrox 30 Ml Oral.Susp PO Q6H PRN Heartburn/Nausea Lorazepam 1 mg 03/10/21 14:47 03/14/21 13:49 Lorazepam 1 Mg Tablet PO 1 mg Q4H PRN Administration anxiety Magnesium Hydroxide 30 ml 03/07/21 19:35 Milk Of Magnesia 30 Ml Oral.Susp PO DAILY PRN Constipation Nicotine Polacrilex 2 mg 03/08/21 11:06 03/14/21 13:46 Nicotine Polacrilex 2 Mg Gum BUCCAL 2 mg Q1H PRN Administration Nicotine Cravings Olanzapine 10 mg 03/10/21 14:48 Olanzapine 10 Mg Tablet PO Q4H PRN agitation Omeprazole 20 mg 03/11/21 09:50 Omeprazole 20 Mg Capsule.Dr PO DAILY PRN GERD Quetiapine Fumarate 100 mg 03/11/21 21:00 03/13/21 23:07 Quetiapine Fumarate 100 Mg Tablet PO Not Given BEDTIME EUGENIA Allergies Allergies Allergy/AdvReac Type Severity Reaction Status Date / Time diphenhydramine Allergy Unknown unknown Verified 10/12/20 04:33 [From BENADRYL] haloperidol [From HALDOL] Allergy Unknown unknown Verified 10/12/20 04:33 Assessment & Plan Assessment & Plan (1) Schizoaffective disorder: Qualifiers: Schizoaffective disorder type: bipolar Qualified Code(s): F25.0 - Schizoaffective disorder, bipolar type Status: Acute Code(s): F25.9 - Schizoaffective disorder, unspecified Assessment and Plan: Jose is a 25 y.o. male who carries a diagnosis of schizoaffective disorder who presents after his grandparents called the ambulance out of concern for patient's disorganized behavior.? On 02/24/2021 patient presented to [facility] ED disorganized and ED note reads: 25 yo male with hx of anxiety, review of records show schizoaffective disorder, EMS was called today due to the patient kneeling outside, being jittery, acting off, no SI statements made, EMS notes the patient was just staring off...ROS unable to be obtained due to patient not really answering questions... Patient was discharged from the ED.? reportedly he went to his friend's house, was again acting bizarrely, kneeling in the center of the room with his shirt off, talking in a disorganized way to the point where his friend became scared, called 911 or crisis and patient was admitted to [facility].? He was only there for a few days, [facility] was not contacted any was discharged without follow-up in place.? He then showed up at his grandparent's house, locked himself in their basement and was reportedly crying, not eating, not sleeping and talking, laughing to himself, saying people are telling him to commit suicide and crying, saying that aliens are coming.? Grandparents called for ambulance and patient was taken to [facility].? It was reported that on arrival to the emergency room he laid down on the bathroom floor. Patient initially presents as overall calm but has no insight, denies any of the past reported behaviors and repeatedly asks for discharge.? Patient does not want medications saying he does not need.? Patient remains on Section 12 B. He asked teletypewriter installer to call [facility] staff since they know him well. Of note, pt has hx of agitation, aggression and last time at [place] [id number], broke through locked fire exit by kicking in door and eloped -refusing medications -[facility] worker John who knows him well believes that patient is ?getting worse? and decompensating.? As paranoid, persecutory delusions that hospital staff is trying to poison him.? Patient has other paranoid, persecutory delusions that his neighbor is attacking him with mormonism and has asked for help to get rid of him; also patient believes his for mother, family, friend are lying about him which has resulted in hospitalization.? -[facility] housing case manager agrees with civil commitment -Patient is on a Section 12. This is patient's 3rd presentation to a hospital in less than 2 weeks, and reportedly people in the community have been recently scared of him. He has seem to be CAH and Patient is reported to have made suicidal comments saying people are telling me to commit suicide. He has paranoid, persecutory delusions and is without any insight at all, refusing medications.? Patient also has history of making verbal threats and being extremely agitative and destructive of property.? At this time, team agrees that patient is at risk for harm to self or others and requires inpatient admission and medication for his and others safety.? Team will petition the court for civil commitment and substituted judgment. Of note, discharge summary from 2018 reports that patient did well on Zyprexa 20 mg. PLAN: pt admitted on SECTION 12b currently on section 7 q15 min checks Encourage Seroqeul 100mg at bedtime (pt agrees to this); pt is declining m edication Ativan 1mg prn for panic/anxiety (pt asks for this) Encourage olanzapine available as prn since report from notes says effective [facility] contacted (pt gave verbal permission to call and involve [facility] in his case) hearing for commitment and meds 03/17. Greater than 50% of the session was spent on counseling and/or coordination of care Reason for contiued inpatient stay Substantial Risk for: inability to function
[2021-03-14 18:00] VITALS: BP 117/62; PULSE 95; TEMP 36.5
[2021-03-15] MEDS: Nicotine Polacrilex 2 MG GUM BUCCAL ×6 (00:03→22:26)
[2021-03-15] MEDS: LORazepam 1 MG TABLET PO (00:05)
[2021-03-15 06:00] VITALS: BP 131/63; PULSE 83; RESP 16; TEMP 35.9; O2SAT 98
--- NOTE | 2021-03-15 11:47 | HO.PSYCHPN ---
Subjective Subjective Date of Service: 03/15/21 Reason For Visit: Psychosis Interim History: pt found lying prone on his bed, awake. no requests or complaints aside from discharge. informed MD would not be discharging pt today and reminded pt of hearing on . pt responded with i don't approve. pt was reminded to notify nurses if MD could be of any help today and staff counselor would be in touch with MD. Mental Status Exam Mental Status Exam Patient Appearance: Disheveled, Unkempt and Bizarre Level of Consciousness: Awake, Restless and Alert Patient Behavior: Passive, Suspicious, Resistive to Care and Good Eye Contact Mood Description: Apathetic, Suspicious and Blunted Affect Description: Suspicious and Blunted Speech Pattern: Garbled and Mumbled Thought Process: Incoherent and Illogical Thought Content: positive for Incoherent and positive for Disorganized Judgement: Poor Diagnostics Vital Signs (24Hr): Vital Signs - 24 hr 03/14/21 18:00 03/15/21 06:00 Temperature 97.7 F 96.7 F L Pulse Rate 95 83 Respiratory Rate 16 Blood Pressure 117/62 131/63 Pulse Oximetry 98 Body Mass Index 20.9 Labs Results: 03/07/21 16:03 03/07/21 16:03 Medications Medications Current Medications Generic Name Dose Route Start Last Admin Trade Name Freq PRN Reason Stop Dose Admin Acetaminophen 650 mg 03/07/21 19:35 Acetaminophen 325 Mg Tablet PO Q6H PRN Headache/Pain Mild Scale (1-3) Al Hydroxide/Mg Hydroxide 30 ml 03/07/21 19:35 Magnesium Hydrox/Alum Hydrox 30 Ml Oral.Susp PO Q6H PRN Heartburn/Nausea Lorazepam 1 mg 03/10/21 14:47 03/15/21 00:05 Lorazepam 1 Mg Tablet PO 1 mg Q4H PRN Administration anxiety Magnesium Hydroxide 30 ml 03/07/21 19:35 Milk Of Magnesia 30 Ml Oral.Susp PO DAILY PRN Constipation Nicotine Polacrilex 2 mg 03/08/21 11:06 03/15/21 00:03 Nicotine Polacrilex 2 Mg Gum BUCCAL 2 mg Q1H PRN Administration Nicotine Cravings Olanzapine 10 mg 03/10/21 14:48 Olanzapine 10 Mg Tablet PO Q4H PRN agitation Omeprazole 20 mg 03/11/21 09:50 Omeprazole 20 Mg Capsule.Dr PO DAILY PRN GERD Quetiapine Fumarate 100 mg 03/11/21 21:00 03/14/21 20:07 Quetiapine Fumarate 100 Mg Tablet PO Not Given BEDTIME EUGENIA Allergies Allergies Allergy/AdvReac Type Severity Reaction Status Date / Time diphenhydramine Allergy Unknown unknown Verified 10/12/20 04:33 [From BENADRYL] haloperidol [From HALDOL] Allergy Unknown unknown Verified 10/12/20 04:33 Assessment & Plan Assessment & Plan (1) Schizoaffective disorder: Qualifiers: Schizoaffective disorder type: bipolar Qualified Code(s): F25.0 - Schizoaffective disorder, bipolar type Status: Acute Code(s): F25.9 - Schizoaffective disorder, unspecified Assessment and Plan: Jose is a 25 y.o. male who carries a diagnosis of schizoaffective disorder who presents after his grandparents called the ambulance out of concern for patient's disorganized behavior.? On 02/24/2021 patient presented to [facility] ED disorganized and ED note reads: 25 yo male with hx of anxiety, review of records show schizoaffective disorder, EMS was called today due to the patient kneeling outside, being jittery, acting off, no SI statements made, EMS notes the patient was just staring off...ROS unable to be obtained due to patient not really answering questions... Patient was discharged from the ED.? reportedly he went to his friend's house, was again acting bizarrely, kneeling in the center of the room with his shirt off, talking in a disorganized way to the point where his friend became scared, called 911 or crisis and patient was admitted to [facility].? He was only there for a few days, [facility] was not contacted any was discharged without follow-up in place.? He then showed up at his grandparent's house, locked himself in their basement and was reportedly crying, not eating, not sleeping and talking, laughing to himself, saying people are telling him to commit suicide and crying, saying that aliens are coming.? Grandparents called for ambulance and patient was taken to [facility].? It was reported that on arrival to the emergency room he laid down on the bathroom floor. Patient initially presents as overall calm but has no insight, denies any of the past reported behaviors and repeatedly asks for discharge.? Patient does not want medications saying he does not need.? Patient remains on Section 12 B. He asked fiction and nonfiction writer prose to call [facility] staff since they know him well. Of note, pt has hx of agitation, aggression and last time at [place] [facility], broke through locked fire exit by kicking in door and eloped -refusing medications -[facility] worker John who knows him well believes that patient is ?getting worse? and decompensating.? As paranoid, persecutory delusions that hospital staff is trying to poison him.? Patient has other paranoid, persecutory delusions that his neighbor is attacking him with cheondoism and has asked for help to get rid of him; also patient believes his for mother, family, friend are lying about him which has resulted in hospitalization.? -[facility] home health care case manager agrees with civil commitment -Patient is on a Section 12. This is patient's 3rd presentation to a hospital in less than 2 weeks, and reportedly people in the community have been recently scared of him. He has seem to be CAH and Patient is reported to have made suicidal comments saying people are telling me to commit suicide. He has paranoid, persecutory delusions and is without any insight at all, refusing medications.? Patient also has history of making verbal threats and being extremely agitative and destructive of property.? At this time, team agrees that patient is at risk for harm to self or others and requires inpatient admission and medication for his and others safety.? Team will petition the court for civil commitment and substituted judgment. Of note, discharge summary from 2018 reports that patient did well on Zyprexa 20 mg. PLAN: pt admitted on SECTION 12b currently on section 7 q15 min checks Encourage Seroqeul 100mg at bedtime (pt agrees to this); pt is declining medication Ativan 1mg prn for panic/anxiety (pt asks for this) Encourage olanzapine available as prn since report from notes says effective [facility] contacted (pt gave verbal permission to call and involve [facility] in his case) hearing for commitment and meds 03/17. Greater than 50% of the session was spent on counseling and/or coordination of care Reason for contiued inpatient stay Substantial Risk for: inability to function
[2021-03-15 17:22] VITALS: BP 141/72; PULSE 108; RESP 18; TEMP 36.7; O2SAT 95
[2021-03-16] MEDS: Nicotine Polacrilex 2 MG GUM BUCCAL ×2 (09:42→18:05)
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
[2021-03-16] MEDS: LORazepam 1 MG TABLET PO ×2 (11:22→18:05)
[2021-03-17 07:00] VITALS: BMI 20.8
[2021-03-17] MEDS: Nicotine Polacrilex 2 MG GUM BUCCAL ×3 (08:05→14:27)
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
[2021-03-17 17:05] VITALS: RESP 18
[2021-03-18] MEDS: QUEtiapine Fumarate 50 MG TABLET PO (13:42)
[2021-03-18 15:55] VITALS: BP 143/78; PULSE 70; TEMP 36.8
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
[2021-03-18] MEDS: Nicotine Polacrilex 2 MG GUM BUCCAL ×3 (18:11→22:15)
[2021-03-18] MEDS: QUEtiapine Fumarate 200 MG TABLET PO (20:03)
[2021-03-19] MEDS: Nicotine Polacrilex 2 MG GUM BUCCAL ×7 (04:07→21:06)
[2021-03-19 06:00] VITALS: BP 117/63; PULSE 92; TEMP 36.7; O2SAT 96
[2021-03-19] MEDS: LORazepam 1 MG TABLET PO (15:28)
[2021-03-19 16:30] VITALS: BP 132/71; PULSE 90
[2021-03-19] MEDS: QUEtiapine Fumarate 200 MG TABLET PO (21:03)
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
[2021-03-20] MEDS: Nicotine Polacrilex 2 MG GUM BUCCAL ×2 (16:01→23:03)
[2021-03-20] MEDS: LORazepam 1 MG TABLET PO (16:40)
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
[2021-03-20 20:27] VITALS: BP 133/61; PULSE 91; RESP 18; TEMP 37.1; O2SAT 98
[2021-03-20] MEDS: QUEtiapine Fumarate 200 MG TABLET PO (22:03)
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
[2021-03-21] MEDS: Nicotine Polacrilex 2 MG GUM BUCCAL ×2 (12:01→17:00)
[2021-03-21 17:28] VITALS: BP 139/75; PULSE 101; RESP 16; TEMP 36.9; O2SAT 98
[2021-03-21] MEDS: QUEtiapine Fumarate 300 MG TABLET PO (21:27)
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
[2021-03-22] MEDS: Nicotine Polacrilex 2 MG GUM BUCCAL (13:09)
[2021-03-22 16:08] VITALS: BP 119/76; PULSE 78; TEMP 37.2
[2021-03-22] MEDS: QUEtiapine Fumarate 300 MG TABLET PO (19:11)
[2021-03-23] MEDS: Nicotine Polacrilex 2 MG GUM BUCCAL ×2 (00:27→18:02)
[2021-03-23 09:20] VITALS: BP 120/58; PULSE 72; TEMP 36.1; O2SAT 96
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
[2021-03-23 18:00] VITALS: BP 130/65; PULSE 94; TEMP 37.1
[2021-03-23] MEDS: QUEtiapine Fumarate 50 MG TABLET 350 MG PO (20:44)
[2021-03-24] MEDS: Nicotine Polacrilex 2 MG GUM BUCCAL (00:16)
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
[2021-03-24 18:54] VITALS: RESP 18
[2021-03-24] MEDS: QUEtiapine Fumarate 50 MG TABLET 350 MG PO (19:23)
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
[2021-03-25] MEDS: Paliperidone ER 6 MG TAB.ER.24 PO (13:17)
[2021-03-25 16:23] VITALS: BP 129/61; PULSE 77; TEMP 37
[2021-03-25] MEDS: QUEtiapine Fumarate 100 MG TABLET PO (19:34)
[2021-03-26] MEDS: Paliperidone ER 6 MG TAB.ER.24 PO (08:32)
[2021-03-26] MEDS: Nicotine Polacrilex 2 MG GUM BUCCAL (08:43)
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
[2021-03-26 16:40] VITALS: RESP 16
[2021-03-26] MEDS: QUEtiapine Fumarate 100 MG TABLET PO (19:40)
[2021-03-27] MEDS: Nicotine Polacrilex 2 MG GUM BUCCAL (01:46)
[2021-03-27] MEDS: Paliperidone ER 6 MG TAB.ER.24 PO (09:47)
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
[2021-03-27] MEDS: QUEtiapine Fumarate 100 MG TABLET PO (22:09)
[2021-03-28] MEDS: Acetaminophen 325 MG TABLET 650 MG PO (05:30)
[2021-03-28 06:00] VITALS: BP 137/65; PULSE 66; RESP 16; TEMP 36.7; O2SAT 97
[2021-03-28] MEDS: Paliperidone ER 6 MG TAB.ER.24 PO (08:07)
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
[2021-03-28] MEDS: QUEtiapine Fumarate 100 MG TABLET PO (20:23)
[2021-03-29 06:00] VITALS: BP 109/55; PULSE 67; RESP 16; TEMP 36.7; O2SAT 97
[2021-03-29] MEDS: Paliperidone ER 6 MG TAB.ER.24 PO (08:52)
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
[2021-03-29] MEDS: Nicotine Polacrilex 2 MG GUM BUCCAL (10:55)
[2021-03-29] MEDS: Acetaminophen 325 MG TABLET 650 MG PO (12:36)
[2021-03-29] MEDS: Benztropine Mesylate 2 MG/2 ML VIAL 1 MG IM (13:45)
--- NOTE | 2021-03-29 14:35 | PC.NURSE ---
Pt spent the shift isolating to himself. Pt c/o pain in his right elbow. Pt's ROM assessed as well as pt would allow. Pt had full ROM in all extremities except his right elbow. Pt winced and refused elbow when TW attempted to do so. Pt grasp is also weaker in right hand. Pt has difficulty staying focused and following commands during assessment. Pt BP 124/63, P 101, T98.7, 02 97% on RA. Pts right hand appeared darker/redder than the left, and was cool to touch. MD notified and was assessed by MD. MD ordered Cogentin 1mg IM, labs also ordered to R/O NMS/Tardive Dyskenesia. MD to order xray of right elbow. Cogentin IM given, labs pending. Pt ate 100% of breakfast and lunch. Pt seen laying across bed , when asked to lay corredtly in bed he said, I'm stretching .
[2021-03-29] MEDS: Benztropine Mesylate 0.5 MG TABLET PO (15:16)
[2021-03-29 16:55] LABS: MANUAL DIFF FLAG NO
[2021-03-29 17:03] LABS: Basophils Percent Auto 0.4 % (0-2); Eosinophils Absolute Auto 0.2 X10*3/uL (0.0-0.4); Eosinophils Percent Auto 2.2 % (0-4); Hematocrit 42.9 % (42-52); Hemoglobin 15.2 g/dl (14.0-18.0); Imm Gran Abs Auto 0.03 X10*3/uL (0.00-0.03); Imm Gran Pct Auto 0.3 % (0.0-0.4); Lymphocytes Absolute Auto 1.5 X10*3/uL (1.2-4.9); Lymphocytes Percent Auto 16.6 % (20-40); Mean Corpuscular HGB Conc 35.4 g/dl (31.0-36.0); Mean Corpuscular Volume 90.3 fL (80-98); Mean Platelet Volume 9.4 fL (9.4-12.4); Monocytes Absolute Auto 0.8 X10*3/uL (0.1-1.2); Monocytes Percent Auto 9.2 % (2-11); Neutrophils Absolute Auto 6.5 X10*3/uL (2.0-8.3); Neutrophils Percent Auto 71.3 % (45-73); Platelet Count 151 X10*3/uL (160-400); Red Blood Count 4.75 X10*6/uL (4.60-5.80); Red Cell Distribution Width 11.7 % (11.0-16.0); White Blood Count 9.1 X10*3/uL (4.8-10.8)
[2021-03-29 17:22] LABS: Blood Urea Nitrogen 22 mg/dL (9-16); Cholesterol 139 mg/dL; Creatinine Clr Calc Pharmacy 107.9; Estimated Glomerular Filt Rate > 60; HDL Cholesterol 31 mg/dL; LDL Cholesterol Calculated 75 mg/dl; Triglycerides 165 mg/dL
[2021-03-29 17:23] LABS: Alanine Aminotransferase 29 U/L (0-40); Albumin Level 4.2 g/dL (3.5-5.0); Alkaline Phosphatase 66 U/L (39-117); Anion Gap 13 (12-20); Aspartate Amino Transferase 41 U/L (5-37); Bilirubin Direct 0.2 mg/dL (0.0-0.5); Bilirubin Total 0.6 mg/dL (0.0-1.0); Carbon Dioxide 26 mmol/L (22-29); Chloride 104 mmol/L (96-108); Lactate Dehydrogenase 242 U/L (118-273); Potassium 4.3 mmol/L (3.3-5.1); Sodium 139 mmol/L (135-145); Total Protein 6.5 g/dL (6.5-8.0)
[2021-03-29] MEDS: Benztropine Mesylate 1 MG TABLET PO (21:04)
[2021-03-29] MEDS: QUEtiapine Fumarate 100 MG TABLET PO (21:04)
[2021-03-30 06:00] VITALS: BP 135/79; PULSE 105; TEMP 36.4; O2SAT 95
[2021-03-30 07:37] LABS: Estimated Average Glucose 105 mg/dL; Hemoglobin A1c % 5.3 %
[2021-03-30] MEDS: Benztropine Mesylate 1 MG TABLET PO ×2 (08:19→21:50)
[2021-03-30] MEDS: Paliperidone ER 6 MG TAB.ER.24 PO (08:19)
[2021-03-30] MEDS: Nicotine Polacrilex 2 MG GUM BUCCAL ×3 (08:22→22:01)
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
[2021-03-30] MEDS: ARIPiprazole 5 MG TABLET PO (19:29)
[2021-03-30 19:30] VITALS: BP 129/70; PULSE 90; RESP 18; TEMP 37; O2SAT 97
[2021-03-31 07:00] VITALS: BMI 21.3
[2021-03-31] MEDS: ARIPiprazole 5 MG TABLET PO (09:38)
[2021-03-31] MEDS: Benztropine Mesylate 1 MG TABLET PO ×2 (09:38→19:49)
[2021-03-31] MEDS: Nicotine Polacrilex 2 MG GUM BUCCAL ×2 (10:52→15:20)
[2021-03-31 16:30] VITALS: BP 126/58; PULSE 54; TEMP 37.1
--- NOTE | 2021-03-31 17:11 | P.PNPSI_ITS ---
Subjective Subjective Date of Service: 03/31/21 Reason For Visit: Psychosis Interim History: pt very silly, dancing around, laughing hilariously and inappropriately, internally preoccupied, nearly constantly talking to himself under his breath which he denies. Did make a point to show aligner typewriter that stiffness remains gone. again explained to pt about Abilify, however he ignored this. Pt told aligner typewriter to call his mother, ask her to visit and bring him cloths; pt said aligner typewriter could tell his mother how he is doing. Mental Status Exam Mental Status Exam Narrative: Alert to self, place, but not situation; pt's hair unkempt; behavior disorganized; mood and affect are labile going from laughing to staring; intermittent eye contact; Speech is normal rate, volume and prosody when answering questions; no psychomotor agitation present; thought process is mostly tangential but can be goal directed and concrete when asked direct questions; Thought content is distracted by delusions/hallucinations; he Denies AVH but remains internally preoccupied; denies any SI/HI.? Patients insight and judgment are impaired. Diagnostics Vital Signs (24Hr): Vital Signs - 24 hr 03/30/21 19:30 03/31/21 16:30 Temperature 98.6 F 98.8 F Pulse Rate 90 54 Respiratory Rate 18 Blood Pressure 129/70 126/58 L Pulse Oximetry 97 Body Mass Index 21.3 Labs Results: 03/29/21 16:50 03/29/21 16:50 Labs: Laboratory Results - last 48 hr 03/29/21 03/29/21 03/29/21 16:50 16:50 16:50 Sodium 139 Potassium 4.3 Chloride 104 Carbon Dioxide 26 Anion Gap 13 BUN 22 H Creatinine 1.09 Estim Creat Clear Calc 107.9 Estimated GFR > 60 Estimat Average Glucose 105 Hemoglobin A1c % 5.3 Total Bilirubin 0.6 Direct Bilirubin 0.2 AST 41 H D ALT 29 Alkaline Phosphatase 66 D Lactate Dehydrogenase 242 Total Protein 6.5 Albumin 4.2 Triglycerides 165 Cholesterol 139 LDL Cholesterol, Calc 75 HDL Cholesterol 31 Imaging Radiology Impressions: ITS Impressions Elbow X-Ray 03/30/21 10:25 IMPRESSION: Small joint effusion. No fracture seen. If there is a history of trauma and clinical suspicion of fracture, follow-up x-ray in one week would be recommended. Medications Medications Current Medications Generic Name Dose Route Start Last Admin Trade Name Freq PRN Reason Stop Dose Admin Acetaminophen 650 mg 03/07/21 19:35 03/29/21 12:36 Acetaminophen 325 Mg Tablet PO 650 mg Q6H PRN Administration Headache/Pain Mild Scale (1-3) Al Hydroxide/Mg Hydroxide 30 ml 03/07/21 19:35 Magnesium Hydrox/Alum Hydrox 30 Ml Oral.Susp PO Q6H PRN Heartburn/Nausea Aripiprazole 10 mg 04/01/21 09:00 Aripiprazole 10 Mg Tablet PO DAILY EUGENIA Benztropine Mesylate 1 mg 03/29/21 21:00 03/31/21 09:38 Benztropine Mesylate 1 Mg Tablet PO 03/31/21 23:59 1 mg BID EUGENIA Administration Lorazepam 1 mg 03/30/21 17:13 Lorazepam 1 Mg Tablet PO TID PRN Anxiety Magnesium Hydroxide 30 ml 03/07/21 19:35 Milk Of Magnesia 30 Ml Oral.Susp PO DAILY PRN Constipation Nicotine Polacrilex 2 mg 03/08/21 11:06 03/31/21 15:20 Nicotine Polacrilex 2 Mg Gum BUCCAL 2 mg Q1H PRN Administration Nicotine Cravings Omeprazole 20 mg 03/11/21 09:50 Omeprazole 20 Mg Capsule.Dr PO DAILY PRN GERD Quetiapine Fumarate 150 mg 03/31/21 21:00 Quetiapine Fumarate 50 Mg Tablet PO BEDTIME EUGENIA Ziprasidone 20 mg 03/17/21 13:38 Ziprasidone Mesylate 20 Mg Vial IM TID PRN refusing seroquel or agitation Allergies Allergies Allergy/AdvReac Type Severity Reaction Status Date / Time diphenhydramine Allergy Unknown unknown Verified 10/12/20 04:33 [From BENADRYL] haloperidol [From HALDOL] Allergy Unknown unknown Verified 10/12/20 04:33 paliperidone AdvReac Severe dystonia Verified 03/30/21 23:47 Assessment & Plan Assessment & Plan (1) Schizoaffective disorder: Qualifiers: Schizoaffective disorder type: bipolar Qualified Code(s): F25.0 - Schizoaffective disorder, bipolar type Status: Acute Code(s): F25.9 - Schizoaffective disorder, unspecified Assessment and Plan: IMPRESSION: Jose is a 25 y.o. male who carries a diagnosis of schizoaffective disorder who presents after his grandparents called the ambulance out of concern for patient's disorganized behavior.? On 02/24/2021 patient presented to [facility] ED disorganized and ED note reads: 25 yo male with hx of anxiety, review of records show schizoaffective disorder, EMS was called today due to the patient kneeling outside, being jittery, acting off, no SI statements made, EMS notes the patient was just staring off...ROS unable to be obtained due to patient not really answering questions... Patient was discharged from the ED.? reportedly he went to his friend's house, was again acting bizarrely, kneeling in the center of the room with his shirt off, talking in a disorganized way to the point where his friend became scared, called 911 or crisis and patient was admitted to [facility].? He was only there for a few days, [facility] was not contacted any was discharged without follow-up in place.? He then showed up at his grandparent's house, locked himself in their basement and was reportedly crying, not eating, not sleeping and talking, laughing to himself, saying people are telling him to commit suicide and crying, saying that aliens are coming.? Grandparents called for ambulance and patient was taken to [facility].? It was reported that on arrival to the emergency room he laid down on the bathroom floor. HOSPITAL COURSE: Patient initially presents as overall calm but has no insight, denies any of the past reported behaviors and repeatedly asks for discharge.? Patient does not want medications saying he does not need.? Patient remains on Section 12 B. He asked aligner typewriter to call [facility] staff since they know him well. Of note, pt has hx of agitation, aggression and last time at [place] [id number], broke through locked fire exit by kicking in door and eloped -refusing medications -[facility] worker John who knows him well believes that patient is ?getting worse? and decompensating.? As paranoid, persecutory delusions that hospital staff is trying to poison him.? Patient has other paranoid, persecutory delusions that hi s neighbor is attacking him with oriental orthodox and has asked for help to get rid of him; also patient believes his for mother, family, friend are lying about him which has resulted in hospitalization.? -[facility] watch case polisher agrees with civil commitment -Patient is on a Section 12. This is patient's 3rd presentation to a hospital in less than 2 weeks, and reportedly people in the community have been recently s cared of him. He has seem to be CAH and Patient is reported to have made suicidal comments saying people are telling me to commit suicide. He has paranoid, persecutory delusions and is without any insight at all, refusing medications.? Patient has made threatening comments to staff while on the unit and sexualized and intimidating comments/behavior toward a specific female staff, requiring pt to be on 1;1 Patient also has history of making verbal threats and being extremely agitative and destructive of property.? At this time, team agrees that patient is at risk for harm to self or others and requires inpatient admission and medication for his and others safety.? Team will move forward with petition the court for civil commitment and substituted judgment. -Patient being titrated on Seroquel; he says he does not like this dose since it makes him tired during the day, though he has been seen in the milieu interacting pleasantly and not looking sedated. He wants medication lowered back to 50 mg and cannot understand that this dose is too low to treat psychotic symptoms. Sharepoint Net Developer offered to change medication that will be sedating but patient refuse -03/22 patient reports Seroquel is too sedating; he cannot accept or understand reasons for medication or increased dose of Seroquel as he remains without insight into his psychotic disorder. Will continue with Seroquel since that was his request and see if his body adapts and no longer feel sedated; however if he remains excessively tired, we will likely have to switch to another antipsychotic medication trial Switch to Paliperidone/Invega 03/25/21 -on 03/25 patient remains tired which he says is from Seroquel. Patient symptoms have not resolved at all despite Seroquel being titrated to almost 400 mg. Gi farooq that patient is intermittently sedated, and does not want to continue with Seroquel at this dose, will switch medication to Paliperidone which is on his [facility] order and his mother reports was very effective in the past. Sharepoint Net Developer considered starting ziprasidone instead given that patient complained of erectile dysfunction on Paliperidone/Invega; however both his mother and watch case polisher reported that his complaints of erectile dysfunction started prior to ever being on Paliperidone/Invega. Because this has been shown effective in the past, it seems that it is patient's best interest to have symptoms resolved as soon as possible, rather than endure another trial of a medication that might n ot work. Sharepoint Net Developer has attempted several times to discuss this potential medication change however patient has not been organized enough to tolerate discussion. Once patient is again stable and organized, he can always discussing med change with his outpatient provider. 03/29/21 pt less irritable; remians disorganized. Seems to have dystonic reaction which seems to have improved with cogentin. Labs ordered and NMS ruled out. 03/30/21 will discontinue Paliperidone as it caused dystonia; starting and titrating Abilify; remains manic/psychotic Medication hx: -Of note, discharge summary from 2018 reports that patient did well on Zyprexa 20 mg. -patient however reports that Zyprexa 'harmed him and he prefers Seroquel; -Mother reports patient did well on Invega Sustenna; pt c/o erectile dysfunction on this med but mother reports this was complaint before pt on meds. -Dystonic reaction to paliperidon PLAN: Court ordered Civil commitment and substituted judgment able to dc 1:1 (in past, pt made verbal threats to staff and sexualized comme nts and attempted to grab a female staff member) MEDICATION PLAN: STARTED Abilify; titrate to clinical effectiveness Discontinued Paliperidone (caused dystonia) will dc Cogentin 1mg for now (seems to have developed dystonia from paliperidone) -Seroquel to 100mg at bedtime prn; otherwise not effective and overly sedating for patient; -Seroquel 50mg TID for anxiety/agitation; (pt has tolerated Seroquel 100mg in past) -IF REFUSES Paliperidone: GIVE Ziprasidone 20mg IM TID prn -if pt requires chemical restraint...and if it's evident that Ziprasidone is not effective, can use Zyprexa IM....But NOT WITH IM BENZO. -Ativan 1mg prn for panic/anxiety (pt asks for this) [facility] contacted (pt gave verbal permission to call and involve [facility] in his case) [facility]: Seroquel Zyprexa Fluphenazine Abilify Paliperidone Invega Sustenna Risperdal Ziprasidone Depakote trazodone Regarding zypexa with benzo's: [employer] states Concomitant use: Concurrent use of parenteral benzodiazepine and IM olanzapine is not recommended; if considered, monitor for excessive sedation and cardiorespiratory depression (Product Information: ZYPREXA(R) oral tablets, intramuscular injection, olanzapine oral tablets, intramuscular injection. [employer], [place], [place], 2009) Collateral information obtained on 03/16 Sharepoint Net Developer spoke with patient's mother Ko Arguello ([phone]).? Sharepoint Net Developer did not give her any information at all about her son but listened to her concerns (mother had called at least once before, wanting to share information).? Patient's mother expressed extreme concern.? She said that for months he has been deteriorating but that it has gotten much worse the past 2 weeks.? She said for a couple months patient was talking about people trying to harm him and poison him with food; subsequently his mom says he has not been eating very much and has lost significant weight.? She says he had cameras connected at his apartment to proved people were coming in an out in order to harm him.? He also started talking about they were attacking him with oriental orthodox and hearing a voice to tell him to commit suicide and hurt other people however he said he knew better, meaning that it's not right to do so.? Mother said that his symptoms worsened over the past 2 weeks and he once was wandering the streets all night, coming home dirty; people in the community were noticing significant difference as patient is known and well liked in his neighborhood; ? She said he has become very paranoid repeating that people are trying to poison him and week prior to this admission, he threw out all the food in his refrigerator.? Mother said he was in distress, constantly saying people were attacking him through oriental orthodox and trying to murder him in his sleep and threw food.? He also specifically identified his neighbor, who recently moved into the building, was attacking him with oriental orthodox and told his mom ?I need to get rid of him...? I need to kick his ass since I know he is trying to kill me... She reports other times patient was unable to maintain a conversation, as he would stop to talk to himself.? His mother explained the incident that led to his admission to [facility] (where he only spent about 3 days, and was admitted to this hospital about 3 days after discharge) saying that he was at his friend's house, [place], locked himself in the bathroom and was screaming all night long, until 06:00 that people were trying to kill him, that he will let them kill him, praying to God to keep people from killing him and baking for it to stop.? When he came out of the bathroom he went to various pictures on the wall and started yelling at them.? Reportedly angel raza was fearful for his own safety and called crisis/911.? Soon after, she reports locked himself in his grandparents basement for 3 days, refusing to eat, talking to himself constantly, screaming and also making his grandfather fearful for both his and patients safety.? Patient's mother says t hat in the past he was on Invega and was doing great able to have normal, fluid conversations, in his right mind, outgoing, socially appropriate and his normal self.? She says he complained of getting erectile dysfunction from the medication and did not want to take it, however she reports he was complaining of erectile dysfunction months before he was ever on any medication.? Patient's [facility] worker also holds this perspective. 03/20/21: Continue current plan of care. 03/28/2021: No changes to primary team treatment plan Greater than 50% of the session was spent on counseling and/or coordination of care Reason for contiued inpatient stay Substantial Risk for: harm to self, harm to others, inability to function and rapid decompensation
[2021-03-31] MEDS: QUEtiapine Fumarate 50 MG TABLET 150 MG PO (19:48)
[2021-04-01] MEDS: Nicotine Polacrilex 2 MG GUM BUCCAL ×4 (02:44→20:51)
--- NOTE | 2021-04-01 03:02 | PC.NURSE ---
Pt in hyperaroused psychotic state yelling and swearing, unable to be redirected. +AVH, interacting with internal stimuli. Demanding toward staff; screaming I am not going to be disrespected after being asked to lower his voice. Requested to take a shower, continued to be interacting with internal stimuli yelling and swearing as if interacting with people while in the shower. Patient refusing medications. Due to escalating behaviors and inability to rationalize with patient, this RN prepared for potential IM medication and requested support from Nursing Agriculture Intern and Security. Patient was standing by the med room when security arrived onto the unit and immediately went into fighting posture lifting his hands into fists as if ready to fight, Security Officers gave patient space not wanting to escalate the situation. As RN was in med room preparing the medication, patient made his way down the end of the zheng and another Technology Assistant was able to build rapport and patient slowly quieted and squatted propped next to wall next to the Art Rm. Patient was observed to stay quiet, yet somewhat tense by the situation with Security being present on the unit. At this point patient did not appear to be interacting with the internal stimuli and aware of current situation, appearing anxious. RN was able to connect with patient and acknowledge his request not to take medication, and forego the IM injection if patient could agree to maintain control on the unit; patient agreed- plan was discussed with Nursing Agriculture Intern and Security and they all left the Unit as situation was under control. Over short period of time, patient returned to his bedroom in a quiet demeanor; continued to interact with internal stimuli but no longer yelling and swearing.
[2021-04-01 06:00] VITALS: BP 134/61; PULSE 81; RESP 16; TEMP 36.5; O2SAT 97
[2021-04-01] MEDS: ARIPiprazole 10 MG TABLET PO (11:12)
[2021-04-01 16:19] VITALS: BP 134/75; PULSE 100; TEMP 36.1
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
[2021-04-01] MEDS: ARIPiprazole 5 MG TABLET PO (19:32)
[2021-04-01] MEDS: QUEtiapine Fumarate 50 MG TABLET 150 MG PO (19:32)
[2021-04-02] MEDS: LORazepam 1 MG TABLET PO ×2 (00:02→21:56)
[2021-04-02] MEDS: OLANZapine 10 MG VIAL IM (02:05)
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
[2021-04-02] MEDS: ARIPiprazole 20 MG TABLET PO (14:01)
[2021-04-02] MEDS: Nicotine Polacrilex 2 MG GUM BUCCAL ×2 (17:49→20:49)
[2021-04-02 18:00] VITALS: BP 128/74; PULSE 92; RESP 18; TEMP 36.9; O2SAT 99
[2021-04-02] MEDS: QUEtiapine Fumarate 50 MG TABLET 150 MG PO (21:50)
[2021-04-03] MEDS: OLANZapine 10 MG VIAL IM (00:23)
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
--- NOTE | 2021-04-03 02:43 | PC.NURSE ---
0000: PT BECOMING INCREASINGLY PSYCHOTIC,DELUSIONAL. ENGAGING IN UNSAFE BEHAVIORS SUCH CLIMBING ONTO THE DESK IN HIS ROOM,ATTEMPTING TO UNSCREW THE CEILING LIGHT FIXTURE. 2:1 STAFF WITH PATIENT . IN HALLWAY, SHADOW BOXING, TRYING TO FALL BACKWARDS. LAUGHING, YELLING. NONSENSICAL.KJ WILDER NP CALLED FOR A MEDICATION RESTRAINT DUE TO PATIENT'S UNSAFE BEHAVIORS. ZYPREXA 10 MG IM GIVEN AT 0023 MEDICATION RESTRAINT. PT NEEDED TO BE PHYSICALLY SUPPORTED FOR THE RESTRAINT DUE TO PATIENT'S MENTAL STATUS.PT WAS ASLEEP IN BED BY 0045. DR GOLD ON UNIT AT 0120 TO EVALUATE PATIENT. NO FURTHER ORDERS AT THIS TIME.
[2021-04-03 06:00] VITALS: RESP 16
[2021-04-03] MEDS: Nicotine Polacrilex 2 MG GUM BUCCAL ×4 (09:54→23:43)
[2021-04-03] MEDS: ARIPiprazole 20 MG TABLET PO (09:54)
--- NOTE | 2021-04-03 10:50 | PC.NURSE ---
Isaias declined to sign the [facility] Patient Debriefing and Comment Form for the restraints on the overnight shifts the previous two days. When presented by this contract writer Isaias was tangential and unable to follow the form. On 04/02/2021 he stated, Leave me the fuck alone! Go away! . On 04/03/2021 he stated, Nothing happened. I don't know what you're talking about. I think you have the wrong gurjit . This contract writer attempted to explain that it can be hard to form memories when someone is struggling with their mental health, he was not receptive. This contract writer then asked Isaias if he had any unexplained pain, fears, suspicions, or feelings that he was mistreated. Isaias denied these aforementioned issues. He declined to talk further and did not want to go over the form line by line and stated, Leave me alone .
--- NOTE | 2021-04-03 15:06 | HO.PSYCHPN ---
Subjective Subjective Date of Service: 04/03/21 Reason For Visit: Psychosis Subjective Notes: Tesfaye Warning and Section 8 Interim History: Patient seen and discussed with team. He has remained on 1:1 safety checks. Per RN on overnight, he was again administered IM olanzapine 10 mg with good response, had unsafe/ disruptive behavior of standing on desk, attempting to unscrew light bulb. staff registered nurse also noted that he has an apparent ulcer on R heel, observed when Donis took his sneaker off. He has been lying down with headphones on, slept in this morning, continues to respond to internal stimuli, irritable in affect. Patient evaluated this morning and upon interview he reports Im alright. Discussed apparent benefit on olanzapine for stabilization, however Jose states i dont want no medication, they all suck. He is not amendable to discussing med changes or his Alfonso's order, states you guys suck and you're all just controlled. Says his sleep and appetite are fine. Denies pain from ulcer on L heel. In the milieu, patient is somewhat isolative, wearing headphones. Denies SI/SIB/HI upon inquiry. Appears irritable, denies assaultive ideation. Says he feels safe Medication Compliance: Yes Side effects from medications: No Attending Groups: No Review of Systems Medical Review of Systems: unchanged Mental Status Exam Mental Status Exam Narrative: Alert to self, place, but not situation; pt's hair unkempt; behavior disorganized, manic, intrusive and confrontational;? mood fine, and affect is irritable, tired; intermittent eye contact; Speech is normal rate, volume and prosody when answering direct questions; increased psychomotor agitation present; thought process is mostly tangential and disorganized; it can be briefly goal directed and concrete when asked direct questions; Thought content is distracted by delusions/hallucinations; he Denies AVH but remains internally preoccupied; denies any SI/HI.? Patients insight and judgment are impaired. Diagnostics Vital Signs (24Hr): Vital Signs - 24 hr 04/02/21 18:00 04/03/21 06:00 Temperature 98.4 F Pulse Rate 92 Respiratory Rate 18 16 Blood Pressure 128/74 Pulse Oximetry 99 Body Mass Index 21.3 Labs Results: 03/29/21 16:50 03/29/21 16:50 Imaging Radiology Impressions: ITS Impressions Elbow X-Ray 03/30/21 10:25 IMPRESSION: Small joint effusion. No fracture seen. If there is a history of trauma and clinical suspicion of fracture, follow-up x-ray in one week would be recommended. Medications Medications Current Medications Generic Name Dose Route Start Last Admin Trade Name Freq PRN Reason Stop Dose Admin Acetaminophen 650 mg 03/07/21 19:35 03/29/21 12:36 Acetaminophen 325 Mg Tablet PO 650 mg Q6H PRN Administration Headache/Pain Mild Scale (1-3) Al Hydroxide/Mg Hydroxide 30 ml 03/07/21 19:35 Magnesium Hydrox/Alum Hydrox 30 Ml Oral.Susp PO Q6H PRN Heartburn/Nausea Aripiprazole 20 mg 04/02/21 09:00 04/03/21 09:54 Aripiprazole 20 Mg Tablet PO 20 mg DAILY EUGENIA Administration Lorazepam 1 mg 03/30/21 17:13 04/02/21 21:56 Lorazepam 1 Mg Tablet PO 1 mg TID PRN Administration Anxiety Magnesium Hydroxide 30 ml 03/07/21 19:35 Milk Of Magnesia 30 Ml Oral.Susp PO DAILY PRN Constipation Nicotine Polacrilex 2 mg 03/08/21 11:06 04/03/21 09:54 Nicotine Polacrilex 2 Mg Gum BUCCAL 2 mg Q1H PRN Administration Nicotine Cravings Omeprazole 20 mg 03/11/21 09:50 Omeprazole 20 Mg Capsule.Dr PO DAILY PRN GERD Quetiapine Fumarate 150 mg 03/31/21 21:00 04/02/21 21:50 Quetiapine Fumarate 50 Mg Tablet PO 150 mg BEDTIME EUGENIA Administration Ziprasidone 20 mg 04/01/21 10:47 Ziprasidone Mesylate 20 Mg Vial IM TID PRN if refuses sched antipsychotic Allergies Allergies Allergy/AdvReac Type Severity Reaction Status Date / Time diphenhydramine Allergy Unknown unknown Verified 10/12/20 04:33 [From BENADRYL] haloperidol [From HALDOL] Allergy Unknown unknown Verified 10/12/20 04:33 paliperidone AdvReac Severe dystonia Verified 03/30/21 23:47 Assessment & Plan Assessment & Plan (1) Schizoaffective disorder: Qualifiers: Schizoaffective disorder type: bipolar Qualified Code(s): F25.0 - Schizoaffective disorder, bipolar type Status: Acute Code(s): F25.9 - Schizoaffective disorder, unspecified Assessment and Plan: IMPRESSION: Jose is a 25 y.o. male who carries a diagnosis of schizoaffective disorder who presents after his grandparents called the ambulance out of concern for patient's disorganized behavior.? On 02/24/2021 patient presented to [facility] ED disorganized and ED note reads: 25 yo male with hx of anxiety, review of records show schizoaffective disorder, EMS was called today due to the patient kneeling outside, being jittery, acting off, no SI statements made, EMS notes the patient was just staring off...ROS unable to be obtained due to patient not really answering questions... Patient was discharged from the ED.? reportedly he went to his friend's house, was again acting bizarrely, kneeling in the center of the room with his shirt off, talking in a disorganized way to the point where his friend became scared, called 911 or crisis and patient was admitted [facility].? He was only there for a few days, [facility] was not contacted any was discharged without follow-up in place.? He then showed up at his grandparent's house, locked himself in their basement and was reportedly crying, not eating, not sleeping and talking, laughing to himself, saying people are telling him to commit suicide and crying, saying that aliens are coming.? Grandparents called for ambulance and patient was taken to [facility].? It was reported that on arrival to the emergency room he laid down on the bathroom floor. HOSPITAL COURSE: Patient initially presents as overall calm but has no insight, denies any of the past reported behaviors and repeatedly asks for discharge.? Patient does not want medications saying he does not need.? Patient remains on Section 12 B. He asked internal communications writer to call [facility] staff since they know him well. Of note, pt has hx of agitation, aggression and last time at [place] [address], broke through locked fire exit by kicking in door and eloped -refusing medications -[facility] worker John who knows him well believes that patient is ?getting worse? and decompensating.? As paranoid, persecutory delusions that hospital staff is trying to poison him.? Patient has other paranoid, persecutory delusions that his neighbor is attacking him with jain and has asked for help to get rid of him; also patient believes his for mother, family, friend are lying about him which has resulted in hospitalization.? -[facility] pillowcase turner agrees with civil commitment -Patient is on a Section 12. This is patient's 3rd presentation to a hospital in less than 2 weeks, and reportedly people in the community have been recently scared of him. He has seem to be CAH and Patient is reported to have made suicidal comments saying people are telling me to commit suicide. He has paranoid, persecutory delusions and is without any insight at all, refusing medications.? Patient has made threatening comments to staff while on the unit and sexualized and intimidating comments/behavior toward a specific female staff, requiring pt to be on 1;1 Patient also has history of making verbal threats and being extremely agitative and destructive of property.? At this time, team agrees that patient is at risk for harm to self or others and requires inpatient admission and medication for his and others safety.? Team will move forward with petition the court for civil commitment and substituted judgment. -Patient being titrated on Seroquel; he says he does not like this dose since it makes him tired during the day, though he has been seen in the milieu interacting pleasantly and not looking sedated. He wants medication lowered back to 50 mg and cannot understand that this dose is too low to treat psychotic symptoms. Bench Assembly Inspector offered to change medication that will be sedating but patient refuse -03/22 patient reports Seroquel is too sedating; he cannot accept or understand reasons for medication or increased dose of Seroquel as he remains without insight into his psychotic disorder. Will continue with Seroquel since that was his request and see if his body adapts and no longer feel sedated; however if he remains excessively tired, we will likely have to switch to another antipsychotic medication trial Switch to Paliperidone/Invega 03/25/21 -on 03/25 patient remains tired which he says is from Seroquel. Patient symptoms have not resolved at all despite Seroquel being titrated to almost 400 mg. Given that patient is intermittently sedated, and does not want to continue with Seroquel at this dose, will switch medication to Paliperidone which is on his Foley order and his mother reports was very effective in the past. Bench Assembly Inspector considered starting ziprasidone instead given that patient complained of erectile dysfunction on Paliperidone/Invega; however both his mother and pillowcase turner reported that his complaints of erectile dysfunction started prior to ever being on Paliperidone/Invega. Because this has been shown effective in the past, it seems that it is patient's best interest to have symptoms resolved as soon as possible, rather than endure another trial of a medication that might not work. Bench Assembly Inspector has attempted several times to discuss this potential medication change however patient has not been organized enough to tolerate discussion. Once patient is again stable and organized, he can always discussing med change with his outpatient provider. 03/29/21 pt less irritable; remians disorganized. Seems to have dystonic reaction which seems to have improved with cogentin. Labs ordered and NMS ruled out. 03/30/21 will discontinue Paliperidone as it caused dystonia; starting and titrating Abilify; remains manic/psychotic 04/02/21: Will continue med regimen per primary team, IM zyprexa 10 mg was utilized on evening of 04/01/21 due to combative and disruptive unsafe behaviors. Staff report positive benefit on olanzapine. 04/03/21: Discussed benefit on olanzapine with primary psychiatrist. Will discontinue abilify 20 mg due to lack of effect on disorganized and bizarre/ unsafe behavior, start zydis 10 mg QHS. Reviewed risks and benefits with Jose. Ordered wound consult due to ulcer on L foot. PLAN: Court ordered Civil commitment and substituted judgment RESTART 1:1 for intrusive and intimidating behaviors to female staff (in past, pt made verbal threats to staff and sexualized comments and attempted to grab a female staff member) MEDICATION PLAN: -INCREASED Abilify 20MG; IF NO REDUCTION IN SYMPTOMS, WILL EITHER QUICKLY GO TO 30MG OR DC AND TRY ZIPRASIDONE -will also consider Depakote trial, however still hoping to treat patient with monotherapy -Seroquel to 150mg at bedtime; otherwise too sedating to be effective -Seroquel 50mg TID for anxiety/agitation; (pt has tolerated Seroquel 100mg in past) -Cogentin 1mg PRN -IF REFUSES Paliperidone: GIVE Ziprasidone 20mg IM TID prn -if pt requires chemical restraint...and if it's evident that Ziprasidone is not effective, can use Zyprexa IM....But NOT WITH IM BENZO. -Ativan 1mg prn for panic/anxiety (pt asks for this) -Discontinued Paliperidone (caused dystonia) [facility] contacted (pt gave verbal permission to call and involve [facility] in his case) pt gave verbal permission to call and involve mother in his case DONNA MEDICATON: Seroquel: too sedating Zyprexa Fluphenazine Abilify Paliperidone: dystonic reaction Invega Sustenna Risperdal Ziprasidone Depakote trazodone Medication hx: -Of note, discharge summary from 2018 reports that patient did well on Zyprexa 20 mg. -patient however reports that Zyprexa 'harmed him and he prefers Seroquel; -Mother reports patient did well on Invega Sustenna; pt c/o erectile dysfunction on this med but mother reports this was complaint before pt on meds. -Dystonic reaction to paliperidon Regarding zypexa with benzo's: [employer] states Concomitant use: Concurrent use of parenteral benzodiazepine and IM olanzapine is not recommended; if considered, monitor for excessive sedation and cardiorespiratory depression (Product Information: ZYPREXA(R) oral tablets, intramuscular injection, olanzapine oral tablets, intramuscular injection. [employer], [place], [place], 2009) Collateral information obtained on 03/16 Bench Assembly Inspector spoke with patient's mother Ko Arguello ([phone]).? Bench Assembly Inspector did not give her any information at all about her son but listened to her concerns (mother had called at least once before, wanting to share information).? Patient's mother expressed extreme concern.? She said that for months he has been deteriorating but that it has gotten much worse the past 2 weeks.? She said for a couple months patient was talking about people trying to harm him and poison him with food; subsequently his mom says he has not been eating very much and has lost significant weight.? She says he had cameras connected at his apartment to proved people were coming in an out in order to harm him.? He also started talking about they were attacking him with jain and hearing a voice to tell him to commit suicide and hurt other people however he said he knew better, meaning that it's not right to do so.? Mother said that his symptoms worsened over the past 2 weeks and he once was wandering the streets all night, coming home dirty; people in the community were noticing significant difference as patient is known and well liked in his neighborhood; ? She said he has become very paranoid repeating that people are trying to poison him and week prior to this admission, he threw out all the food in his refrigerator.? Mother said he was in distress, constantly saying people were attacking him through jain and trying to murder him in his sleep and threw food.? He also specifically identified his neighbor, who recently moved into the building, was attacking him with jain and told his mom ?I need to get rid of him...? I need to kick his ass since I know he is trying to kill me... She reports other times patient was unable to maintain a conversation, as he would stop to talk to himself.? His mother explained the incident that led to his admission to [facility] (where he only spent about 3 days, and was admitted to this hospital about 3 days after discharge) saying that he was at his friend's house, [place], locked himself in the bathroom and was screaming all night long, until 06:00 that people were trying to kill him, that he will let them kill him, praying to God to keep people from killing him and baking for it to stop.? When he came out of the bathroom he went to various pictures on the wall and started yelling at them.? Reportedly angel raza was fearful for his own safety and called crisis/911.? Soon after, she reports locked himself in his grandparents basement for 3 days, refusing to eat, talking to himself constantly, screaming and also making his grandfather fearful for both his and patients safety.? Patient's mother says that in the past he was on Invega and was doing great able to have normal, fluid conversations, in his right mind, outgoing, socially appropriate and his normal self.? She says he complained of getting erectile dysfunction from the medication and did not want to take it, however she reports he was complaining of erectile dysfunction months before he was ever on any medication.? Patient's [facility] worker also holds this perspective. 03/20/21: Continue current plan of care. 03/28/2021: No changes to primary team treatment plan Greater than 50% of the session was spent on counseling and/or coordination of care Reason for contiued inpatient stay Substantial Risk for: inability to function, rapid decompensation and med/psych decompensation
[2021-04-03] MEDS: OLANZapine ODT 10 MG TAB.RAPDIS TRANSLINGU ×2 (16:23→22:07)
[2021-04-03 18:00] VITALS: BP 175/64; PULSE 108; RESP 18; TEMP 36.9; O2SAT 98
[2021-04-03] MEDS: QUEtiapine Fumarate 100 MG TABLET PO (22:07)
[2021-04-04] MEDS: Nicotine Polacrilex 2 MG GUM BUCCAL ×6 (09:17→22:24)
--- NOTE | 2021-04-04 10:30 | P.PNPSI_ITS ---
Subjective Subjective Date of Service: 04/04/21 Reason For Visit: Psychosis Interim History: Patient clean shaven today. Patient said ?hello? to conventional mortgage underwriter with a nod, 1st time patient has responded appropriately to conventional mortgage underwriter's greeting. He says he has ?good ? but needs a little more of the stubble shaved off. Patient overall seems more calm though he still could goes inappropriately has disorganized speech. Of note, patient had a difficult week am on both Sunday and Sunday where he was wild and agitated, disabled the fire alarm, shadow boxing, jumping up on furniture and he needed chemical restraint. Covering provider called this conventional mortgage underwriter Over the weekend and it was agreed to discontinue patient's Abilify and start him on Zyprexa since he had responded well when given the injection for agitation. Mental Status Exam Mental Status Exam Narrative: Alert to self, place, but not situation; clean shaven; behavior still disorganized but less so; less confrontational;? mood good, and affect more friendly; intermittent eye contact; Speech is normal rate, volume and prosody when answering direct questions; less psychomotor agitation present; thought process is mostly tangential and disorganized but is increasingly more goal directed (though concrete) when asked direct questions; Thought content is distracted by delusions/hallucinations; he Denies AVH but remains internally pre occupied; denies any SI/HI.? Patients insight and judgment are impaired. Diagnostics Vital Signs (24Hr): Vital Signs - 24 hr 04/03/21 18:00 Temperature 98.4 F Pulse Rate 108 H Respiratory Rate 18 Blood Pressure 175/64 H Pulse Oximetry 98 Body Mass Index 21.3 Labs Results: 03/29/21 16:50 03/29/21 16:50 Imaging Radiology Impressions: ITS Impressions Elbow X-Ray 03/30/21 10:25 IMPRESSION: Small joint effusion. No fracture seen. If there is a history of trauma and clinical suspicion of fracture, follow-up x-ray in one week would be recommended. Medications Medications Current Medications Generic Name Dose Route Start Last Admin Trade Name Freq PRN Reason Stop Dose Admin Acetaminophen 650 mg 03/07/21 19:35 03/29/21 12:36 Acetaminophen 325 Mg Tablet PO 650 mg Q6H PRN Administration Headache/Pain Mild Scale (1-3) Al Hydroxide/Mg Hydroxide 30 ml 03/07/21 19:35 Magnesium Hydrox/Alum Hydrox 30 Ml Oral.Susp PO Q6H PRN Heartburn/Nausea Lorazepam 1 mg 03/30/21 17:13 04/02/21 21:56 Lorazepam 1 Mg Tablet PO 1 mg TID PRN Administration Anxiety Magnesium Hydroxide 30 ml 03/07/21 19:35 Milk Of Magnesia 30 Ml Oral.Susp PO DAILY PRN Constipation Nicotine Polacrilex 2 mg 03/08/21 11:06 04/04/21 09:17 Nicotine Polacrilex 2 Mg Gum BUCCAL 2 mg Q1H PRN Administration Nicotine Cravings Olanzapine 10 mg 04/03/21 21:00 04/03/21 22:07 Olanzapine Odt 10 Mg Tab.Rapdis TRANSLINGU 10 mg BEDTIME EUGENIA Administration Omeprazole 20 mg 03/11/21 09:50 Omeprazole 20 Mg Capsule.Dr PO DAILY PRN GERD Quetiapine Fumarate 100 mg 04/03/21 21:00 04/03/21 22:07 Quetiapine Fumarate 100 Mg Tablet PO 100 mg BEDTIME EUGENIA Administration Ziprasidone 20 mg 04/01/21 10:47 Ziprasidone Mesylate 20 Mg Vial IM TID PRN if refuses sched antipsychotic Allergies Allergies Allergy/AdvReac Type Severity Reaction Status Date / Time diphenhydramine Allergy Unknown unknown Verified 10/12/20 04:33 [From BENADRYL] haloperidol [From HALDOL] Allergy Unknown unknown Verified 10/12/20 04:33 paliperidone AdvReac Severe dystonia Verified 03/30/21 23:47 Assessment & Plan Assessment & Plan (1) Schizoaffective disorder: Qualifiers: Schizoaffective disorder type: bipolar Qualified Code(s): F25.0 - Schizoaffective disorder, bipolar type Status: Acute Code(s): F25.9 - Schizoaffective disorder, unspecified Assessment and Plan: IMPRESSION: Jose is a 25 y.o. male who carries a diagnosis of schizoaffective disorder who presents after his grandparents called the ambulance out of concern for patient's disorganized behavior.? On 02/24/2021 patient presented to [facility] ED disorganized and ED note reads: 25 yo male with hx of anxiety, review of records show schizoaffective disorder, EMS was called today due to the patient kneeling outside, being jittery, acting off, no SI statements made, EMS notes the patient was just staring off...ROS unable to be obtained due to patient not really answering questions... Patient was discharged from the ED.? reportedly he went to his friend's house, was again acting bizarrely, kneeling in the center of the room with his shirt off, talking in a disorganized way to the point where his friend became scared, called 911 or crisis and patient was admitted to [facility].? He was only there for a few days, [facility] was not contacted any was discharged without follow-up in place.? He then showed up at his grandparent's house, locked himself in their basement and was reportedly crying, not eating, not sleeping and talking, laughing to himself, saying people are telling him to commit suicide and crying, saying that aliens are coming.? Grandparents called for ambulance and patient was taken to [facility].? It was reported that on arrival to the emergency room he laid down on the bathroom floor. HOSPITAL COURSE: Patient initially presents as overall calm but has no insight, denies any of the past reported behaviors and repeatedly asks for discharge.? Patient does not want medications saying he does not need.? Patient remains on Section 12 B. He asked conventional mortgage underwriter to call [facility] staff since they know him well. Of note, pt has hx of agitation, aggression and last time at [place] [id number], broke through locked fire exit by kicking in door and eloped -refusing medications -[facility] worker John who knows him well believes that patient is ?getting worse? and decompensating.? As paranoid, persecutory delusions that hospital staff is trying to poison him.? Patient has other paranoid, persecutory delusions that his neighbor is attacking him with adventist and has asked for help to get rid of him; also patient believes his for mother, family, friend are lying about him which has resulted in hospitalization.? -[facility] manager of case agrees with civil commitment -Patient is on a Section 12. This is patient's 3rd presentation to a hospital in less than 2 weeks, and reportedly people in the community have been recently scared of him. He has seem to be CAH and Patient is reported to have made suicidal comments saying people are telling me to commit suicide. He has paranoid, persecutory delusions and is without any insight at all, refusing medications.? Patient has made threatening comments to staff while on the unit and sexualized and intimidating comments/behavior toward a specific female staff, requiring pt to be on 1;1 Patient also has history of making verbal threats and being extremely agitative and destructive of property.? At this time, team agrees that patient is at risk for harm to self or others and requires inpatient admission and medication for his and others safety.? Team will move forward with petition the court for civil commitment and substituted judgment. -Patient being titrated on Seroquel; he says he does not like this dose since it makes him tired during the day, though he has been seen in the milieu interacting pleasantly and not looking sedated. He wants medication lowered back to 50 mg and cannot understand that this dose is too low to treat psychotic symptoms. Java Mobile Developer offered to change medication that will be sedating but patient refuse -03/22 patient reports Seroquel is too sedating; he cannot accept or understand reasons for medication or increased dose of Seroquel as he remains without insight into his psychotic disorder. Will continue with Seroquel since that was his request and see if his body adapts and no longer feel sedated; however if he remains excessively tired, we will likely have to switch to another antipsychotic medication trial Switch to Paliperidone/Invega 03/25/21 -on 03/25 patient remains tired which he says is from Seroquel. Patient symptoms have not resolved at all despite Seroquel being titrated to almost 400 mg. Given that patient is intermittently sedated, and does not want to continue with Seroquel at this dose, will switch medication to Paliperidone which is on his Foley order and his mother reports was very effective in the past. Java Mobile Developer considered starting ziprasidone instead given that patient complained of erectile dysfunction on Paliperidone/Invega; however both his mother and manager of case reported that his complaints of erectile dysfunction started prior to ever being on Paliperidone/Invega. Because this has been shown effective in the past, it seems that it is patient's best interest to have symptoms resolved as soon as possible, rather than endure another trial of a medication that might not work. [employer] Developer has attempted several times to discuss this potential medication change however patient has not been organized enough to tolerate discussion. Once patient is again stable and organized, he can always discussing med change with his outpatient provider. 03/29/21 pt less irritable; remians disorganized. Seems to have dystonic reaction which seems to have improved with cogentin. Labs ordered and NMS ruled out. 03/30/21 will discontinue Paliperidone as it caused dystonia; starting and titrating Abilify; remains manic/psychotic 04/02/21: Will continue med regimen per primary team, IM zyprexa 10 mg was utilized on evening of 04/01/21 due to combative and disruptive unsafe behaviors. Staff report positive benefit on olanzapine. 04/03/21: Discussed benefit on olanzapine with primary psychiatrist. Will discontinue abilify 20 mg due to lack of effect on disorganized and bizarre/ unsafe behavior, start zydis 10 mg QHS. Reviewed risks and benefits with Jose. Ordered wound consult due to ulcer on L foot. 04/04 Abilify proved ineffective; patient started on Zyprexa which seems to be helping PLAN: Court ordered Civil commitment and substituted judgment RESTART 1:1 for intrusive and intimidating behaviors to female staff (in past, pt made verbal threats to staff and sexualized comments and attempted to grab a female staff member) MEDICATION PLAN: Medical consult ordered due to left foot ulceration DISCONTINUED ABILIFY (not effective with increasingly disorganized and agitated behaviors) STARTED Zyprexa and titrated to 15mg (so far seems to be helping) -will also consider Depakote trial, however still hoping to treat patient with monotherapy -LOWERED Seroquel to 100mg and made prn since pt seems to be sleeping better on Zyprexa (and want to avoid polypharm) -Seroquel 50mg TID for anxiety/agitation; (pt has tolerated Seroquel 100mg in past) -Cogentin 1mg PRN -IF REFUSES ZYPREXA PO: GIVE ZYPREXA IM -if pt requires chemical restraint...can use Zyprexa IM....But NOT WITH IM BENZO . -Ativan 1mg prn for panic/anxiety (pt asks for this) -Discontinued Paliperidone (caused dystonia) -discontinued Abilify since not effective -discontinued Seroquel since overly sedating [facility] contacted (pt gave verbal permission to call and involve [facility] in his case) pt gave verbal permission to call and involve mother in his case DONNA MEDICATON: Seroquel: too sedating Zyprexa Fluphenazine Abilify: NOT effective Paliperidone/invega: dystonic reaction Risperdal Ziprasidone Depakote trazodone Medication hx: -Of note, discharge summary from 2018 reports that patient did well on Zyprexa 20 mg. -patient however reports that Zyprexa 'harmed him and he prefers Seroquel; -Mother reports patient did well on Invega Sustenna; pt c/o erectile dysfunction on this med but mother reports this was complaint before pt on meds. -Dystonic reaction to paliperidon Regarding zypexa with benzo's: [employer] states Concomitant use: Concurrent use of parenteral benzodiazepine and IM olanzapine is not recommended; if considered, monitor for excessive sedation and cardiorespiratory depression (Product Information: ZYPREXA(R) oral tablets, intramuscular injection, olanzapine oral tablets, intramuscular injection. [employer], [place], [place], 2009) Collateral information obtained on 03/16 Java Mobile Developer spoke with patient's mother Ko Arguello ([phone]).? Java Mobile Developer did not give her any information at all about her son but listened to her concerns (mother had called at least once before, wanting to share information).? Patient's mother expressed extreme concern.? She said that for months he has been deteriorating but that it has gotten much worse the past 2 weeks.? She said for a couple months patient was talking about people trying to harm him and poison him with food; subsequently his mom says he has not been eating very much and has lost significant weight.? She says he had cameras connected at his apartment to proved people were coming in an out in order to harm him.? He also started talking about they were attacking him with adventist and hearing a voice to tell him to commit suicide and hurt other people however he said he knew better, meaning that it's not right to do so.? Mother said that his symptoms worsened over the past 2 weeks and he once was wandering the streets all night, coming home dirty; people in the community were noticing significant difference as patient is known and well liked in his neighborhood; ? She said he has become very paranoid repeating that people are trying to poison him and week prior to this admission, he threw out all the food in his refrigerator.? Mother said he was in distress, constantly saying people were attacking him through adventist and trying to murder him in his sleep and threw food.? He also specifically identified his neighbor, who recently moved into the building, was attacking him with adventist and told his mom ?I need to get rid of him...? I need to kick his ass since I know he is trying to kill me... She reports other times patient was unable to maintain a conversation, as he would stop to talk to himself.? His mother explained the incident that led to his admission to [facility] (where he only spent about 3 days, and was admitted to this hospital about 3 days after discharge) saying that he was at his friend's house, [place], locked himself in the bathroom and was screaming all night long, until 06:00 that people were trying to kill him, that he will let them kill him, praying to God to keep people from killing him and baking for it to stop.? When he came out of the ba throom he went to various pictures on the wall and started yelling at them.? Reportedly angel raza was fearful for his own safety and called crisis/911.? Soon after, she reports locked himself in his grandparents basement for 3 days, refusing to eat, talking to himself constantly, screaming and also making his grandfather fearful for both his and patients safety.? Patient's mother says that in the past he was on Invega and was doing great able to have normal, fluid conversations, in his right mind, outgoing, socially appropriate and his normal self.? She says he complained of getting erectile dysfunction from the medication and did not want to take it, however she reports he was complaining of erectile dysfunction months before he was ever on any medication.? Patient's [facility] worker also holds this perspective. 03/20/21: Continue current plan of care. 03/28/2021: No changes to primary team treatment plan Greater than 50% of the session was spent on counseling and/or coordination of care Reason for contiued inpatient stay Substantial Risk for: inability to function
--- NOTE | 2021-04-04 11:25 | PC.NURSE ---
Wound assessment completed today. Patient has a pressure injury to posterior right heel. Silver alginate applied to wound bed covered with foam dressing. No other skin issues noted at this time.
[2021-04-04 15:55] VITALS: BP 137/77; PULSE 114; TEMP 36.7
[2021-04-04 16:08] VITALS: BMI 21.3
--- NOTE | 2021-04-04 16:20 | MHC.CLN ---
NUTRITION CONSULT STAGE III WOUND TO HEEL. DIET=REGULAR. SUPPLEMENT ENSURE 240 ML TID TO PROVIDE 1050 KCAL, 60 G PROTEIN. PATIENT WITH INCREASED NUTRITIONAL NEEDS DUE TO ACTIVITY, STATURE, AND WOUND. SEE NUTRITION ASSESSMENT.
[2021-04-04] MEDS: OLANZapine ODT 10 MG TAB.RAPDIS 15 MG TRANSLINGU (20:13)
[2021-04-05] MEDS: Nicotine Polacrilex 2 MG GUM BUCCAL ×4 (08:52→22:03)
--- NOTE | 2021-04-05 10:04 | P.PNPSI_ITS ---
Subjective Subjective Date of Service: 04/05/21 Reason For Visit: Psychosis Interim History: Regulatory Law Specialist approach patient who was briefly able to have a conversation saying that he was feeling better and that his mother came to visit the other day bringing him clothing. He is happy to be able to change into clothes so he can stop wearing the hospital gown which he says makes him look like John Tolliver. Thenhe quickly started laughing hilariously, stimulated by internal dialogue. He then started dancing around and said he wanted to continued disabling the smoke detectors and kicked them; he then started laughing and briefly shadow boxing, saying he wanted to fight security. He kept laughing about this however and stopped shadow boxing and just walked off, talking loudly and laughing inappropriately Mental Status Exam Mental Status Exam Narrative: ?Alert to self, place, but not situation; clean shaven; behavior still disorganized, intrusive and bizarre; mood great, and affect labile; intermittent eye contact; pt talks in different pitches but Speech can be normal rate, volume and prosody when answering direct questions; remains with psychomotor agitation; thought process is mostly tangential and disorganized; moments where he can be goal directed (though concrete) when asked direct questions; Thought content is on various unrelated and inappropriate things, distracted by delusions/hallucinations; he Denies AVH but remains internally preoccupied; denies any SI/HI.? Patients insight and judgment are impaired. Diagnostics Vital Signs (24Hr): Vital Signs - 24 hr 04/04/21 15:55 Temperature 98.0 F Pulse Rate 114 H Blood Pressure 137/77 Body Mass Index 21.3 Labs Results: 03/29/21 16:50 03/29/21 16:50 Imaging Radiology Impressions: ITS Impressions Elbow X-Ray 03/30/21 10:25 IMPRESSION: Small joint effusion. No fracture seen. If there is a history of trauma and clinical suspicion of fracture, follow-up x-ray in one week would be recommended. Medications Medications Current Medications Generic Name Dose Route Start Last Admin Trade Name Freq PRN Reason Stop Dose Admin Acetaminophen 650 mg 03/07/21 19:35 03/29/21 12:36 Acetaminophen 325 Mg Tablet PO 650 mg Q6H PRN Administration Headache/Pain Mild Scale (1-3) Al Hydroxide/Mg Hydroxide 30 ml 03/07/21 19:35 Magnesium Hydrox/Alum Hydrox 30 Ml Oral.Susp PO Q6H PRN Heartburn/Nausea Magnesium Hydroxide 30 ml 03/07/21 19:35 Milk Of Magnesia 30 Ml Oral.Susp PO DAILY PRN Constipation Nicotine Polacrilex 2 mg 03/08/21 11:06 04/05/21 08:52 Nicotine Polacrilex 2 Mg Gum BUCCAL 2 mg Q1H PRN Administration Nicotine Cravings Olanzapine 15 mg 04/04/21 21:00 04/04/21 20:13 Olanzapine Odt 10 Mg Tab.Rapdis TRANSLINGU 15 mg BEDTIME EUGENIA Administration Olanzapine 10 mg 04/04/21 10:39 Olanzapine 10 Mg Vial IM DAILY PRN IF REFUSES PO Omeprazole 20 mg 03/11/21 09:50 Omeprazole 20 Mg Capsule.Dr PO DAILY PRN GERD Quetiapine Fumarate 100 mg 04/04/21 10:42 Quetiapine Fumarate 100 Mg Tablet PO BEDTIME PRN any insomnia Allergies Allergies Allergy/AdvReac Type Severity Reaction Status Date / Time diphenhydramine Allergy Unknown unknown Verified 10/12/20 04:33 [From BENADRYL] haloperidol [From HALDOL] Allergy Unknown unknown Verified 10/12/20 04:33 paliperidone AdvReac Severe dystonia Verified 03/30/21 23:47 Assessment & Plan Assessment & Plan (1) Schizoaffective disorder: Qualifiers: Schizoaffective disorder type: bipolar Qualified Code(s): F25.0 - Schizoaffective disorder, bipolar type Status: Acute Code(s): F25.9 - Schizoaffective disorder, unspecified Assessment and Plan: IMPRESSION: Jose is a 25 y.o. male who carries a diagnosis of schizoaffective disorder who presents after his grandparents called the ambulance out of concern for patient's disorganized behavior.? On 02/24/2021 patient presented to [facility] ED disorganized and ED note reads: 25 yo male with hx of anxiety, review of records show schizoaffective disorder, EMS was called today due to the patient kneeling outside, being jittery, acting off, no SI statements made, EMS notes the patient was just staring off...ROS unable to be obtained due to patient not really answering questions... Patient was discharged from the ED.? reportedly he went to his friend's house, was again acting bizarrely, kneeling in the center of the room with his shirt off, talking in a disorganized way to the point where his friend became scared, called 911 or crisis and patient was admitted to [facility].? He was only there for a few days, [facility] was not contacted any was discharged without follow-up in place.? He then showed up at his grandparent's house, locked himself in their basement and was reportedly crying, not eating, not sleeping and talking, laughing to himself, saying people are telling him to commit suicide and crying, saying that aliens are coming.? Grandparents called for ambulance and patient was taken to [facility].? It was reported that on arrival to the emergency room he laid down on the bathroom floor. HOSPITAL COURSE: Patient initially presents as overall calm but has no insight, denies any of the past reported behaviors and repeatedly asks for discharge.? Patient does not want medications saying he does not need.? Patient remains on Section 12 B. He asked junior underwriter to call [facility] staff since they know him well. Of note, pt has hx of agitation, aggression and last time at [place] [id number], broke through locked fire exit by kicking in door and eloped -refusing medications -[facility] worker John who knows him well believes that patient is ?getting worse? and decompensating.? As paranoid, persecutory delusions that hospital staff is trying to poison him.? Patient has other paranoid, persecutory delusions that his neighbor is attacking him with cheondoism and has asked for help to get rid of him; also patient believes his for mother, family, friend are lying about him which has resulted in hospitalization.? -[facility] caseworker intake agrees with civil commitment -Patient is on a Section 12. This is patient's 3rd presentation to a hospital in less than 2 weeks, and reportedly people in the community have been recently scared of him. He has seem to be CAH and Patient is reported to have made suicidal comments saying people are telling me to commit suicide. He has paranoid, persecutory delusions and is without any insight at all, refusing medications.? Patient has made threatening comments to staff while on the unit and sexualized and intimidating comments/behavior toward a specific female staff, requiring pt to be on 1;1 Patient also has history of making verbal threats and being extremely agitative and destructive of property.? At this time, team agrees that patient is at risk for harm to self or others and requires inpatient admission and medication for his and others safety.? Team will move forward with petition the court for civil commitment and substituted judgment. -Patient being titrated on Seroquel; he says he does not like this dose since it makes him tired during the day, though he has been seen in the milieu interacting pleasantly and not looking sedated. He wants medication lowered back to 50 mg and cannot understand that this dose is too low to treat psychotic symptoms. Regulatory Law Specialist offered to change medication that will be sedating but patient refuse -03/22 patient reports Seroquel is too sedating; he cannot accept or understand reasons for medication or increased dose of Seroquel as he remains without insight into his psychotic disorder. Will continue with Seroquel since that was his request and see if his body adapts and no longer feel sedated; however if he remains excessively tired, we will likely have to switch to another antipsychotic medication trial Switch to Paliperidone/Invega 03/25/21 -on 03/25 patient remains tired which he says is from Seroquel. Patient symptoms have not resolved at all despite Seroquel being titrated to almost 400 mg. Given that patient is intermittently sedated, and does not want to continue with Seroquel at this dose, will switch medication to Paliperidone which is on his Foley order and his mother reports was very effective in the past. Regulatory Law Specialist sukhwinder onsidered starting ziprasidone instead given that patient complained of erectile dysfunction on Paliperidone/Invega; however both his mother and caseworker intake reported that his complaints of erectile dysfunction started prior to ever being on Paliperidone/Invega. Because this has been shown effective in the past, it seems that it is patient's best interest to have symptoms resolved as soon as possible, rather than endure another trial of a medication that might not work. Regulatory Law Specialist has attempted several times to discuss this potential medication change however patient has not been organized enough to tolerate discussion. Once patient is again stable and organized, he can always discussing med change with his outpatient provider. 03/29/21 pt less irritable; remians disorganized. Seems to have dystonic reaction which seems to have improved with cogentin. Labs ordered and NMS ruled out. 03/30/21 will discontinue Paliperidone as it caused dystonia; starting and titrating Abilify; remains manic/psychotic 04/02/21: Will continue med regimen per primary team, IM zyprexa 10 mg was utilized on evening of 04/01/21 due to combative and disruptive unsafe behaviors. Staff report positive benefit on olanzapine. 04/03/21: Discussed benefit on olanzapine with primary psychiatrist. Will discontinue abilify 20 mg due to lack of effect on disorganized and bizarre/ unsafe behavior, start zydis 10 mg QHS. Reviewed risks and benefits with Jose. Ordered wound consult due to ulcer on L foot. 04/04 Abilify proved ineffective; patient started on Zyprexa which seems to be helping 04/05: Seemed at Zyprexa was helping however patient is now on Zyprexa 20 mg and remains floridly psychotic and manic. Patient is only 25 years old and junior underwriter would very much like to find a m onotherapy treatment for this patient; however options are becoming limited. If patient does not make any improvement soon, will switch to Geodon; otherwise Prolixin remains last option for monotherapy (due to Foley), and considering that patient had dystonic reaction to Paliperidone, junior underwriter would prefer to avoid another medium to high potency antipsychotic. Regulatory Law Specialist talked with Mother who reported a history of possible TBIs due to BMX biking. PLAN: Court ordered Civil commitment and substituted judgment RESTART 1:1 for intrusive and intimidating behaviors to female staff (in past, pt made verbal threats to staff and sexualized comments and attempted to grab a female staff member) MEDICATION PLAN: Medical consult ordered due to left foot ulceration DISCONTINUED ABILIFY (not effective with increasingly disorganized and agitated behaviors) STARTED Zyprexa and titrated to 15mg (so far seems to be helping) -will also consider Depakote trial, however still hoping to treat patient with monotherapy -LOWERED Seroquel to 100mg and made prn since pt seems to be sleeping better on Zyprexa (and want to avoid polypharm) -Seroquel 50mg TID for anxiety/agitation; (pt has tolerated Seroquel 100mg in past) -Cogentin 1mg PRN -IF REFUSES ZYPREXA PO: GIVE ZYPREXA IM -if pt requires chemical restraint...can use Zyprexa IM....But NOT WITH IM BENZO . -Ativan 1mg prn for panic/anxiety (pt asks for this) -Discontinued Paliperidone (caused dystonia) -discontinued Abilify since not effective -discontinued Seroquel since overly sedating [facility] contacted (pt gave verbal permission to call and involve [facility] in his case) pt gave verbal permission to call and involve mother in his case DONNA MEDICATON: Seroquel: too sedating Zyprexa Fluphenazine Abilify: NOT effective Paliperidone/invega: dystonic reaction Risperdal Ziprasidone Depakote trazodone Medication hx: -Of note, discharge summary from 2018 reports that patient did well on Zyprexa 20 mg. -patient however reports that Zyprexa 'harmed him and he prefers Seroquel; -Mother reports patient did well on Invega Sustenna; pt c/o erectile dysfunction on this med but mother reports this was complaint before pt on meds. -Dystonic reaction to paliperidon Regarding zypexa with benzo's: [employer] states Concomitant use: Concurrent use of parenteral benzodiazepine and IM olanzapine is not recommended; if considered, monitor for excessive sedation and cardiorespiratory depression (Product Information: ZYPREXA(R) oral tablets, intramuscular injection, olanzapine oral tablets, intramuscular injection. [employer], [place], [place], 2010) Collateral information obtained on 03/16 Regulatory Law Specialist spoke with patient's mother Ko Arguello ([phone]).? Regulatory Law Specialist did not give her any information at all about her son but listened to her concerns (mother had called at least once before, wanting to share information).? Patient's mother expressed extreme concern.? She said that for months he has been deteriorating but that it has gotten much worse the past 2 weeks.? She said for a couple months patient was talking about people trying to harm him and poison him with food; subsequently his mom says he has not been eating very much and has lost significant weight.? She says he had cameras connected at his apartment to proved people were coming in an out in order to harm him.? He also started talking about they were attacking him with cheondoism and hearing a voice to tell him to commit suicide and hurt other people however he said he knew better, meaning that it's not right to do so.? Mother said that his symptoms worsened over the past 2 weeks and he once was wandering the streets all night, coming home dirty; people in the community were noticing significant difference as patient is known and well liked in his neighborhood; ? She said he has become very paranoid repeating that people are trying to poison him and week prior to this admission, he threw out all the food in his refrigerator.? Mother said he was in distress, constantly saying people were attacking him through cheondoism and trying to murder him in his sleep and threw food.? He also specifically identified his neighbor, who recently moved into the building, was attacking him with cheondoism and told his mom ?I need to get rid of him...? I need to kick his ass since I know he is trying to kill me... She reports other times patient was unable to maintain a conversation, as he would stop to talk to himself.? His mother explained the incident that led to his admission to [facility] (where he only spent about 3 days, and was admitted to this hospital about 3 days after discharge) saying that he was at his friend's house, [place], locked himself in the bathroom and was screaming all night long, until 06:00 that people were trying to kill him, that he will let them kill him, praying to God to keep people from killing him and baking for it to stop.? When he came out of the b athroom he went to various pictures on the wall and started yelling at them.? Reportedly angel raza was fearful for his own safety and called crisis/911.? Soon after, she reports locked himself in his grandparents basement for 3 days, refusing to eat, talking to himself constantly, screaming and also making his grandfather fearful for both his and patients safety.? Patient's mother says that in the past he was on Invega and was doing great able to have normal, fluid conversations, in his right mind, outgoing, socially appropriate and his normal self.? She says he complained of getting erectile dysfunction from the medication and did not want to take it, however she reports he was complaining of erectile dysfunction months before he was ever on any medication.? Patient's [facility] worker also holds this perspective. 03/20/21: Continue current plan of care. 03/28/2021: No changes to primary team treatment plan Greater than 50% of the session was spent on counseling and/or coordination of care Reason for contiued inpatient stay Substantial Risk for: inability to function and med/psych decompensation
[2021-04-05 17:51] VITALS: BP 119/60; PULSE 82; TEMP 36.9
[2021-04-05] MEDS: OLANZapine ODT 10 MG TAB.RAPDIS 20 MG TRANSLINGU (19:32)
[2021-04-06 06:00] VITALS: PULSE 104; RESP 16; TEMP 37.2; O2SAT 96
[2021-04-06] MEDS: Nicotine Polacrilex 2 MG GUM BUCCAL ×2 (09:59→20:07)
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
[2021-04-06] MEDS: Ziprasidone 20 MG CAPSULE PO ×2 (15:44→21:42)
[2021-04-06] MEDS: QUEtiapine Fumarate 200 MG TABLET PO (21:42)
[2021-04-06] MEDS: OLANZapine ODT 10 MG TAB.RAPDIS 20 MG TRANSLINGU (21:42)
[2021-04-07] MEDS: Nicotine Polacrilex 2 MG GUM BUCCAL ×7 (09:13→23:39)
[2021-04-07] MEDS: Ziprasidone 20 MG CAPSULE PO (09:59)
[2021-04-07] MEDS: OLANZapine ODT 10 MG TAB.RAPDIS TRANSLINGU ×2 (13:14→23:53)
[2021-04-07 16:30] VITALS: BP 137/60; PULSE 67; TEMP 37.1
--- NOTE | 2021-04-07 16:57 | P.PNPSI_ITS ---
Subjective Subjective Date of Service: 04/07/21 Reason For Visit: Psychosis Interim History: Patient loud and disorganized on the unit, laughing and responding to internal stimuli; intermittently saying inappropriate sexual things to female staff. Patient refused to talk to data analyst report writer and said he was ?fine? but would not talk otherwise. Mental Status Exam Mental Status Exam Narrative: Alert to self, place, but not situation; clean shaven; behavior still disorganized, intrusive and bizarre; mood great, and affect labile; intermittent eye contact; pt talks in different pitches but Speech can be normal rate, volume and prosody when answering direct questions; remains with psychomotor agitation; thought process is mostly tangential and disorganized; moments where he can be goal directed (though concrete) when asked direct questions; Thought content is on various unrelated and inappropriate things, distracted by delusions/hallucinations; he Denies AVH but remains internally preoccupied; denies any SI/HI.? Patients insight and judgment are impaired. Diagnostics Vital Signs (24Hr): Body Mass Index 21.3 Labs Results: 03/29/21 16:50 03/29/21 16:50 Imaging Radiology Impressions: ITS Impressions Elbow X-Ray 03/30/21 10:25 IMPRESSION: Small joint effusion. No fracture seen. If there is a history of trauma and clinical suspicion of fracture, follow-up x-ray in one week would be recommended. Medications Medications Current Medications Generic Name Dose Route Start Last Admin Trade Name Freq PRN Reason Stop Dose Admin Acetaminophen 650 mg 03/07/21 19:35 03/29/21 12:36 Acetaminophen 325 Mg Tablet PO 650 mg Q6H PRN Administration Headache/Pain Mild Scale (1-3) Al Hydroxide/Mg Hydroxide 30 ml 03/07/21 19:35 Magnesium Hydrox/Alum Hydrox 30 Ml Oral.Susp PO Q6H PRN Heartburn/Nausea Magnesium Hydroxide 30 ml 03/07/21 19:35 Milk Of Magnesia 30 Ml Oral.Susp PO DAILY PRN Constipation Nicotine Polacrilex 2 mg 03/08/21 11:06 04/07/21 16:45 Nicotine Polacrilex 2 Mg Gum BUCCAL 2 mg Q1H PRN Administration Nicotine Cravings Olanzapine 10 mg 04/05/21 12:54 04/07/21 13:14 Olanzapine Odt 10 Mg Tab.Rapdis TRANSLINGU 10 mg TID PRN Administration agitation Olanzapine 10 mg 04/05/21 12:56 Olanzapine 10 Mg Vial IM DAILY PRN IF REFUSES PO or..agitation Olanzapine 20 mg 04/05/21 21:00 04/06/21 21:42 Olanzapine Odt 10 Mg Tab.Rapdis TRANSLINGU 20 mg BEDTIME EUGENIA Administration Omeprazole 20 mg 03/11/21 09:50 Omeprazole 20 Mg Capsule.Dr PO DAILY PRN GERD Quetiapine Fumarate 200 mg 04/06/21 21:00 04/06/21 21:42 Quetiapine Fumarate 200 Mg Tablet PO 200 mg BEDTIME EUGENIA Administration Ziprasidone 40 mg 04/07/21 17:00 Ziprasidone 40 Mg Capsule PO BID@0800,1700 EUGENIA Allergies Allergies Allergy/AdvReac Type Severity Reaction Status Date / Time diphenhydramine Allergy Unknown unknown Verified 10/12/20 04:33 [From BENADRYL] haloperidol [From HALDOL] Allergy Unknown unknown Verified 10/12/20 04:33 paliperidone AdvReac Severe dystonia Verified 03/30/21 23:47 Assessment & Plan Assessment & Plan (1) Schizoaffective disorder: Qualifiers: Schizoaffective disorder type: bipolar Qualified Code(s): F25.0 - Schizoaffective disorder, bipolar type Status: Acute Code(s): F25.9 - Schizoaffective disorder, unspecified Assessment and Plan: IMPRESSION: Jose is a 25 y.o. male who carries a diagnosis of schizoaffective disorder who presents after his grandparents called the ambulance out of concern for patient's disorganized behavior.? On 02/24/2021 patient presented to [facility] ED disorganized and ED note reads: 25 yo male with hx of anxiety, review of records show schizoaffective disorder, EMS was called today due to the patient kneeling outside, being jittery, acting off, no SI statements made, EMS notes the patient was just staring off...ROS unable to be obtained due to patient not really answering questions... Patient was discharged from the ED.? reportedly he went to his friend's house, was again acting bizarrely, kneeling in the center of the room with his shirt off, talking in a disorganized way to the point where his friend became scared, called 911 or crisis and patient was admitted to [facility].? He was only there for a few days, [facility] was not contacted any was discharged without follow-up in place.? He then showed up at his grandparent's house, locked himself in their basement and was reportedly crying, not eating, not sleeping and talking, laughing to himself, saying people are telling him to commit suicide and crying, saying that aliens are coming.? Grandparents called for ambulance and patient was taken to [facility].? It was reported that on arrival to the emergency room he laid down on the bathroom floor. HOSPITAL COURSE: Patient initially presents as overall calm but has no insight, denies any of the past reported behaviors and repeatedly asks for discharge.? Patient does not want medications saying he does not need.? Patient remains on Section 12 B. He asked data analyst report writer to call [facility] staff since they know him well. Of note, pt has hx of agitation, aggression and last time at [place] [id number], broke through locked fire exit by kicking in door and eloped -refusing medications -[facility] worker John who knows him well believes that patient is ?getting worse? and decompensating.? As paranoid, persecutory delusions that hospital staff is trying to poison him.? Patient has other paranoid, persecutory delusions that his neighbor is attacking him with sabianist and has asked for help to get rid of him; also patient believes his for mother, family, friend are lying about him which has resulted in hospitalization.? -[facility] clinical case manager agrees with civil commitment -Patient is on a Section 12. This is patient's 3rd presentation to a hospital in less than 2 weeks, and reportedly people in the community have been recently scared of him. He has seem to be CAH and Patient is reported to have made suicidal comments saying people are telling me to commit suicide. He has paranoid, persecutory delusions and is without any insight at all, refusing medications.? Patient has made threatening comments to staff while on the unit and sexualized and intimidating comments/behavior toward a specific female staff, requiring pt to be on 1;1 Patient also has history of making verbal threats and being extremely agitative and destructive of property.? At this time, team agrees that patient is at risk for harm to self or others and requires inpatient admission and medication for his and others safety.? Team will move forward with petition the court for civil commitment and substituted judgment. -Patient being titrated on Seroquel; he says he does not like this dose since it makes him tired during the day, though he has been seen in the milieu interacting pleasantly and not looking sedated. He wants medication lowered back to 50 mg and cannot understand that this dose is too low to treat psychotic symptoms. Production Control Expert offered to change medication that will be sedating but patient refuse -03/22 patient reports Seroquel is too sedating; he cannot accept or understand reasons for medication or increased dose of Seroquel as he remains without insight into his psychotic disorder. Will continue with Seroquel since that was his request and see if his body adapts and no longer feel sedated; however if he remains excessively tired, we will likely have to switch to another antipsychoti c medication trial Switch to Paliperidone/Invega 03/25/21 -on 03/25 patient remains tired which he says is from Seroquel. Patient symptoms have not resolved at all despite Seroquel being titrated to almost 400 mg. Given that patient is intermittently sedated, and does not want to continue with Seroquel at this dose, will switch medication to Paliperidone which is on his Foley order and his mother reports was very effective in the past. Production Control Expert considered starting ziprasidone instead given that patient complained of erectile dysfunction on Paliperidone/Invega; however both his mother and clinical case manager reported that his complaints of erectile dysfunction started prior to ever being on Paliperidone/Invega. Because this has been shown effective in the past, it seems that it is patient's best interest to have symptoms resolved as soon as possible, rather than endure another trial of a medication that might not work. Production Control Expert has attempted several times to discuss this potential medication change however patient has not been organized enough to tolerate discussion. Once patient is again stable and organized, he can always discussing med change with his outpatient provider. 03/29/21 pt less irritable; remians disorganized. Seems to have dystonic reaction which seems to have improved with cogentin. Labs ordered and NMS ruled out. 03/30/21 will discontinue Paliperidone as it caused dystonia; starting and titrating Abilify; remains manic/psychotic 04/02/21: Will continue med regimen per primary team, IM zyprexa 10 mg was utilized on evening of 04/01/21 due to combative and disruptive unsafe behaviors. Staff report positive benefit on olanzapine. 04/03/21: Discussed benefit on olanzapine with primary psychiatrist. Will discontinue abilify 20 mg due to lack of effect on disorganized and bizarre/ unsafe behavior, start zydis 10 mg QHS. Reviewed risks and benefits with Jose. Ordered wound consult due to ulcer on L foot. 04/04 Abilify proved ineffective; patient started on Zyprexa which seems to be helping 04/05: Seemed at Zyprexa was helping however patient is now on Zyprexa 20 mg and remains floridly psychotic and manic. Patient is only 25 years old and data analyst report writer would very much like to find a monotherapy treatment for this patient; however options are becoming limited. If patient does not make any improvement soon, will switch to Geodon; otherwise Prolixin remains last option for monotherapy (due to Foley), and considering that patient had dystonic reaction to Paliperidone, data analyst report writer would prefer to avoid another medium to high potency antipsychotic. 04/06 started Ziprasidone 20mg eyewear manufacturing supervisor talked with Mother who reported a history of possible TBIs due to BMX biking. PLAN: Court ordered Civil commitment and substituted judgment RESTART 1:1 for intrusive and intimidating behaviors to female staff (in past, pt made verbal threats to staff and sexualized comments and attempted to grab a female staff member) MEDICATION PLAN: Medical consult ordered due to left foot ulceration STARTED ZIPRASIDONE AND TITRATED TO 40 MG B.I.D; if effective will tapering DC Zyprexa; if not will likely start Depakote WILL leave Zyprexa/zydis 20mg qhs for now but DC if Ziprasidone works -will restart scheduled Seroquel at bedtime for continued insomnia as Zyprexa is not helping with this aspect also consider Depakote trial, however still hoping to treat patient with monotherapy -Seroquel 50mg TID for anxiety/agitation; (pt has tolerated Seroquel 100mg in past) -Cogentin 1mg PRN -IF REFUSES ZYPREXA PO: GIVE ZYPREXA IM -if pt requires chemical restraint...can use Zyprexa IM....But NOT WITH IM BENZO . -Ativan 1mg prn for panic/anxiety (pt asks for this) -Discontinued Paliperidone (caused dystonia) -discontinued Abilify since not effective -discontinued Seroquel since overly sedating [facility] contacted (pt gave verbal permission to call and involve [facility] in his case) pt gave verbal permission to call and involve mother in his case DONNA MEDICATON: Seroquel: too sedating Zyprexa Fluphenazine Abilify: NOT effective Paliperidone/invega: dystonic reaction Risperdal Ziprasidone Depakote trazodone Medication hx: -Of note, discharge summary from 2018 reports that patient did well on Zyprexa 20 mg. -patient however reports that Zyprexa 'harmed him and he prefers Seroquel; -Mother reports patient did well on Invega Sustenna; pt c/o erectile dysfunction on this med but mother reports this was complaint before pt on meds. -Dystonic reaction to paliperidon Regarding zypexa with benzo's: [employer] states Concomitant use: Concurrent use of parenteral benzodiazepine and IM olanzapine is not recommended; if considered, monitor for excessive sedation and cardiorespiratory depression (Product Information: ZYPREXA(R) oral tablets, intramuscular injection, olanzapine oral tablets, intramuscular injection. [employer], [place], [place], 2009) Collateral information obtained on 03/16 Production Control Expert spoke with patient's mother Ko Arguello ([phone]).? Production Control Expert did not give her any information at all about her son but listened to her concerns (mother had called at least once before, wanting to share information).? Milagro tovar's mother expressed extreme concern.? She said that for months he has been deteriorating but that it has gotten much worse the past 2 weeks.? She said for a couple months patient was talking about people trying to harm him and poison him with food; subsequently his mom says he has not been eating very much and has lost significant weight.? She says he had cameras connected at his apartment to proved people were coming in an out in order to harm him.? He also started talking about they were attacking him with sabianist and hearing a voice to tell him to commit suicide and hurt other people however he said he knew better, meaning that it's not right to do so.? Mother said that his symptoms worsened over the past 2 weeks and he once was wandering the streets all night, coming home dirty; people in the community were noticing significant difference as patient is known and well liked in his neighborhood; ? She said he has become very paranoid repeating that people are trying to poison him and week prior to this admission, he threw out all the food in his refrigerator.? Mother said he was in distress, constantly saying people were attacking him through sabianist and trying to murder him in his sleep and threw food.? He also specifically identified his neighbor, who recently moved into the building, was attacking him with sabianist and told his mom ?I need to get rid of him...? I need to kick his ass since I know he is trying to kill me... She reports other times patient was unable to maintain a conversation, as he would stop to talk to himself.? His mother explained the incident that led to his admission to [facility] (where he only spent about 3 days, and was admitted to this hospital about 3 days after discharge) saying that he was at his friend's house, [place], locked himself in the bathroom and was screaming all night long, until 06:00 that people were trying to kill him, that he will let them kill him, praying to God to keep people from killing him and baking for it to stop.? When he came out of the bathroom he went to various pictures on the wall and started yelling at them.? Reportedly angel raza was fearful for his own safety and called crisis/911.? Soon after, she reports locked himself in his grandparents basement for 3 days, refusing to eat, talking to himself constantly, screaming and also making his grandfather fearful for both his and patients safety.? Patient's mother says that in the past he was on Invega and was doing great able to have normal, fluid conversations, in his right mind, outgoing, socially appropriate and his normal self.? She says he complained of getting erectile dysfunction from the medication and did not want to take it, however she reports he was complaining of erectile dysfunction months before he was ever on any medication.? Patient's [facility] worker also holds this perspective. 03/20/21: Continue current plan of care. 03/28/2021: No changes to primary team treatment plan Greater than 50% of the session was spent on counseling and/or coordination of care Reason for contiued inpatient stay Substantial Risk for: inability to function
[2021-04-07] MEDS: Ziprasidone 40 MG CAPSULE PO (18:34)
[2021-04-07] MEDS: OLANZapine ODT 10 MG TAB.RAPDIS 20 MG TRANSLINGU (19:47)
[2021-04-07] MEDS: QUEtiapine Fumarate 200 MG TABLET PO ×2 (19:47→23:19)
--- NOTE | 2021-04-08 08:00 | ECG_ITS ---
Test Reason : QTC/MEDJEANIECK Blood Pressure : / mmHG Vent. Rate : 072 BPM Atrial Rate : 072 BPM P-R Int : 132 ms QRS Dur : 084 ms QT Int : 358 ms P-R-T Axes : 054 082 048 degrees QTc Int : 392 ms Normal sinus rhythm with sinus arrhythmia ST elevation, consider early repolarization Borderline ECG When compared with ECG of 22-DEC-2020 12:54, Vent. rate has decreased BY 36 BPM Nonspecific T wave abnormality no longer evident in Inferior leads QT has shortened Referred By: Clem Light Electronically Signed By:LAVINIA MELLO
[2021-04-08] MEDS: Ziprasidone 40 MG CAPSULE PO (08:54)
[2021-04-08] MEDS: Nicotine Polacrilex 2 MG GUM BUCCAL (08:54)
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
[2021-04-08] MEDS: Divalproex Sodium 500 MG TABLET.DR PO (11:23)
[2021-04-08] MEDS: OLANZapine 10 MG VIAL IM (16:35)
[2021-04-08] MEDS: Divalproex Sodium 250 MG TABLET.DR 750 MG PO (18:07)
[2021-04-08] MEDS: OLANZapine ODT 10 MG TAB.RAPDIS 20 MG TRANSLINGU (19:22)
[2021-04-09] MEDS: Divalproex Sodium 500 MG TABLET.DR 1000 MG PO (14:44)
[2021-04-09] MEDS: Nicotine Polacrilex 2 MG GUM BUCCAL ×2 (14:44→21:14)
[2021-04-09 16:48] VITALS: BP 140/87; PULSE 100; TEMP 36.7
[2021-04-09] MEDS: OLANZapine ODT 10 MG TAB.RAPDIS 20 MG TRANSLINGU (19:17)
[2021-04-09] MEDS: QUEtiapine Fumarate 200 MG TABLET PO (19:18)
[2021-04-10] MEDS: Nicotine Polacrilex 2 MG GUM BUCCAL ×3 (00:19→21:25)
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
[2021-04-10] MEDS: Divalproex Sodium 500 MG TABLET.DR PO ×2 (15:39→15:51)
[2021-04-10 17:35] VITALS: BP 124/69; PULSE 113; TEMP 37.1
[2021-04-10] MEDS: QUEtiapine Fumarate 200 MG TABLET PO (19:39)
[2021-04-10] MEDS: OLANZapine ODT 10 MG TAB.RAPDIS 20 MG TRANSLINGU (19:39)
--- NOTE | 2021-04-10 23:53 | P.PNPSI_ITS ---
Subjective Subjective Date of Service: 04/10/21 Reason For Visit: Psychosis Interim History: pt seen on 04/10 lying on bed; seemed to grunt when telegraphic typewriter operator chief tried to talk with patient; would not otherwise engage. staff reports pt has been sleeping all morning into late afternoon. continues to take medication including depakote Mental Status Exam Mental Status Exam Narrative: ?Alert to self, place, but not situation; clean shaven; currently lying in bed; behavior still disorganized, intrusive and bizarre; mood irritable or expansive; affect congruent; intermittent eye contact;? Speech up/down, different volumes; currently calm but otherwise remains with psychomotor agitation; thought process is mostly tangential and disorganized; moments where he can be goal directed (though concrete) when asked direct questions; Thought content is on various unrelated and inappropriate things, distracted by delusions/hallucinations; he Denies AVH but remains internally preoccupied; denies any SI/HI.? Patients insight and judgment are impaired. Diagnostics Vital Signs (24Hr): Vital Signs - 24 hr 04/10/21 17:35 Temperature 98.7 F Pulse Rate 113 H Blood Pressure 124/69 Body Mass Index 21.3 Labs Results: 03/29/21 16:50 03/29/21 16:50 Imaging Radiology Impressions: ITS Impressions Elbow X-Ray 03/30/21 10:25 IMPRESSION: Small joint effusion. No fracture seen. If there is a history of trauma and clinical suspicion of fracture, follow-up x-ray in one week would be recommended. Medications Medications Current Medications Acetaminophen (Acetaminophen 325 Mg Tablet) 650 mg PO Q6H PRN PRN Reason: Headache/Pain Mild Scale (1-3) Last Admin: 03/29/21 12:36 Dose: 650 mg Documented by: Al Hydroxide/Mg Hydroxide (Magnesium Hydrox/Alum Hydrox 30 Ml Oral.Susp) 30 ml PO Q6H PRN PRN Reason: Heartburn/Nausea Divalproex Sodium (Divalproex Sodium 500 Mg Tablet.Dr) 1,000 mg PO BEDTIME EUGENIA Magnesium Hydroxide (Milk Of Magnesia 30 Ml Oral.Susp) 30 ml PO DAILY PRN PRN Reason: Constipation Nicotine Polacrilex (Nicotine Polacrilex 2 Mg Gum) 2 mg BUCCAL Q1H PRN PRN Reason: Nicotine Cravings Last Admin: 04/10/21 21:25 Dose: 2 mg Documented by: Olanzapine (Olanzapine Odt 10 Mg Tab.Rapdis) 10 mg TRANSLINGU TID PRN PRN Reason: agitation Last Admin: 04/07/21 23:53 Dose: 10 mg Documented by: Olanzapine (Olanzapine 10 Mg Vial) 10 mg IM DAILY PRN PRN Reason: IF REFUSES PO or..agitation Last Admin: 04/08/21 16:35 Dose: 10 mg Documented by: Olanzapine (Olanzapine Odt 10 Mg Tab.Rapdis) 20 mg TRANSLINGU BEDTIME EUGENIA Last Admin: 04/10/21 19:39 Dose: 20 mg Documented by: Omeprazole (Omeprazole 20 Mg Capsule.Dr) 20 mg PO DAILY PRN PRN Reason: GERD Quetiapine Fumarate (Quetiapine Fumarate 200 Mg Tablet) 200 mg PO BEDTIME EUGENIA Last Admin: 04/10/21 19:39 Dose: 200 mg Documented by: Allergies Allergies Allergy/AdvReac Type Severity Reaction Status Date / Time diphenhydramine Allergy Unknown unknown Verified 10/12/20 04:33 [From BENADRYL] haloperidol [From HALDOL] Allergy Unknown unknown Verified 10/12/20 04:33 paliperidone AdvReac Severe dystonia Verified 03/30/21 23:47 Assessment & Plan Assessment & Plan (1) Schizoaffective disorder: Qualifiers: Schizoaffective disorder type: bipolar Qualified Code(s): F25.0 - Schizoaffective disorder, bipolar type Status: Acute Code(s): F25.9 - Schizoaffective disorder, unspecified Assessment and Plan: IMPRESSION: Jose is a 25 y.o. male who carries a diagnosis of schizoaffective disorder who presents after his grandparents called the ambulance out of concern for patient's disorganized behavior.? On 02/24/2021 patient presented to [facility] ED disorganized and ED note reads: 25 yo male with hx of anxiety, review of records show schizoaffective disorder, EMS was called today due to the patient kneeling outside, being jittery, acting off, no SI statements made, EMS notes the patient was just staring off...ROS unable to be obtained due to patient not really answering questions... Patient was discharged from the ED.? reportedly he went to his friend's house, was again acting bizarrely, kneeling in the center of the room with his shirt off, talking in a disorganized way to the point where his friend became scared, called 911 or crisis and patient was admitted to [facility].? He was only there for a few days, [facility] was not contacted any was discharged without follow-up in place.? He then showed up at his grandparent's house, locked himself in their basement and was reportedly crying, not eating, not sleeping and talking, laughing to himself, saying people are telling him to commit suicide and crying, saying that aliens are coming.? Grandparents called for ambulance and patient was taken to [facility].? It was reported that on arrival to the emergency room he laid down on the bathroom floor. HOSPITAL COURSE: Patient initially presents as overall calm but has no insight, denies any of the past reported behaviors and repeatedly asks for discharge.? Patient does not wa nt medications saying he does not need.? Patient remains on Section 12 B. He asked telegraphic typewriter operator chief to call [facility] staff since they know him well. Of note, pt has hx of agitation, aggression and last time at [place] [id number], broke through locked fire exit by kicking in door and eloped -refusing medications -[facility] worker John who knows him well believes that patient is ?getting worse? and decompensating.? As paranoid, persecutory delusions that hospital staff is trying to poison him.? Patient has other paranoid, persecutory delusions that his neighbor is attacking him with restorationism and has asked for help to get rid of him; also patient believes his for mother, family, friend are lying about him which has resulted in hospitalization.? -[facility] pillowcase folder agrees with civil commitment -Patient is on a Section 12. This is patient's 3rd presentation to a hospital in less than 2 weeks, and reportedly people in the community have been recently scared of him. He has seem to be CAH and Patient is reported to have made suicidal comments saying people are telling me to commit suicide. He has paranoid, persecutory delusions and is without any insight at all, refusing medications.? Patient has made threatening comments to staff while on the unit and sexualized and intimidating comments/behavior toward a specific female staff, requiring pt to be on 1;1 Patient also has history of making verbal threats and being extremely agitative and destructive of property.? At this time, team agrees that patient is at risk for harm to self or others and requires inpatient admission and medication for his and others safety.? Team will move forward with petition the court for civil commitment and substituted judgment. -Patient being titrated on Seroquel; he says he does not like this dose since it makes him tired during the day, though he has been seen in the milieu interacting pleasantly and not looking sedated. He wants medication lowered back to 50 mg and cannot understand that this dose is too low to treat psychotic symptoms. Road Passenger Firer offered to change medication that will be sedating but patient refuse -03/22 patient reports Seroquel is too sedating; he cannot accept or understand reasons for medication or increased dose of Seroquel as he remains without insight into his psychotic disorder. Will continue with Seroquel since that was his request and see if his body adapts and no longer feel sedated; however if he remains excessively tired, we will likely have to switch to another antipsychotic medication trial Switch to Paliperidone/Invega 03/25/21 -on 03/25 patient remains tired which he says is from Seroquel. Patient symptoms have not resolved at all despite Seroquel being titrated to almost 400 mg. Given that patient is intermittently sedated, and does not want to continue with Seroquel at this dose, will switch medication to Paliperidone which is on his Foley order and his mother reports was very effective in the past. Road Passenger Firer considered starting ziprasidone instead given that patient complained of erectile dysfunction on Paliperidone/Invega; however both his mother and pillowcase folder reported that his complaints of erectile dysfunction started prior to ever being on Paliperidone/Invega. Because this has been shown effective in the past, it seems that it is patient's best interest to have symptoms resolved as soon as possible, rather than endure another trial of a medication that might not work. Road Passenger Firer has attempted several times to discuss this potential me dication change however patient has not been organized enough to tolerate discussion. Once patient is again stable and organized, he can always discussing med change with his outpatient provider. 03/29/21 pt less irritable; remians disorganized. Seems to have dystonic reaction which seems to have improved with cogentin. Labs ordered and NMS ruled out. 03/30/21 will discontinue Paliperidone as it caused dystonia; starting and titrating Abilify; remains manic/psychotic 04/02/21: Will continue med regimen per primary team, IM zyprexa 10 mg was utilized on evening of 04/01/21 due to combative and disruptive unsafe behaviors. Staff report positive benefit on olanzapine. 04/03/21: Discussed benefit on olanzapine with primary psychiatrist. Will discontinue abilify 20 mg due to lack of effect on disorganized and bizarre/ unsafe behavior, start zydis 10 mg QHS. Reviewed risks and benefits with Jose. Ordered wound consult due to ulcer on L foot. 04/04 Abilify proved ineffective; patient started on Zyprexa which seems to be helping 04/05: Seemed at Zyprexa was helping however patient is now on Zyprexa 20 mg and remains floridly psychotic and manic. Patient is only 25 years old and telegraphic typewriter operator chief would very much like to find a monotherapy treatment for this patient; however options are becoming limited. If patient does not make any improvement soon, will switch to Geodon; otherwise Prolixin remains last option for monotherapy (due to Foley), and considering that patient had dystonic reaction to Paliperidone, telegraphic typewriter operator chief would prefer to avoid another medium to high potency antipsychotic. 04/06 started Ziprasidone 20mg BID, titrated to 40mg BID; medication had no effect. Road Passenger Firer wanted to continue titrating this medication however patient remains floridly manic, is destroying property, threatening staff On both his Zyprexa and ziprasidone he was mumbling to himself less, however he was still continually responding to internal stimuli. Unfortunately monotherapy does not seem to be working andDue to his disorganized, agitated and intermittently threatening behavior will start Depakote on 04/08 04/08 Depakote started; has been taking; seems a little less manic will switch to PM dosing to see if can alleviate daytime tiredness -Will continue Zyprexa for now, it is unclear if it is partially helpful or not all ( maybe less mumbling to himself but he remains continually responding to internal stimuli) -IF Depakote is helpful may just see if patient can do okay on Depakote and Seroquel which did reduce anna but at higher doses over sedated him. Road Passenger Firer talked with Mother who reported a history of possible TBIs due to BMX biking. PLAN: Court ordered Civil commitment and substituted judgment took off 1:1 since less manic (previously 1:1 for intrusive and intimidating behaviors to female staff (in past, pt made verbal threats to staff and sexualized comments and attempted to grab a female staff member) MEDICATION PLAN: Medical consult ordered due to left foot ulceration -Depakote 1000mg qhs (pt taking tab); seems to be tamping down some manic symptoms -Zyprexa/zydis 20mg qhs (helped with some psychotic symptoms but no anna) -scheduled Seroquel 200mg at bedtime for continued insomnia -Seroquel 50mg TID for anxiety/agitation; (pt has tolerated Seroquel 100mg in past) -Cogentin 1mg PRN -IF REFUSES ZYPREXA PO: GIVE ZYPREXA IM -if pt requires chemical restraint...can use Zyprexa IM....But NOT WITH IM BENZO . -Ativan 1mg prn for panic/anxiety (pt asks for this) -Discontinued Paliperidone (caused dystonia) -discontinued Abilify since not effective -discontinued Seroquel since overly sedating -dIScontinued ziprasidone as it has not seemed to help much ( maybe less mumbling to himself but he remains continually responding to internal stimuli) [facility] contacted (pt gave verbal permission to call and involve [facility] in his case) pt gave verbal permission to call and involve mother in his case DONNA MEDICATON: Seroquel: too sedating Zyprexa Fluphenazine Abilify: NOT effective Paliperidone/invega: dystonic reaction Risperdal Ziprasidone Depakote trazodone Medication hx: -Of note, discharge summary from 2018 reports that patient did well on Zyprexa 20 mg. -patient however reports that Zyprexa 'harmed him and he prefers Seroquel; -Mother reports patient did well on Invega Sustenna; pt c/o erectile dysfunction on this med but mother reports this was complaint before pt on meds. -Dystonic reaction to paliperidon Regarding zypexa with benzo's: [employer] states Concomitant use: Concurrent use of parenteral benzodiazepine and IM olanzapine is not recommended; if considered, monitor for excessive sedation and cardiorespiratory depression (Product Information: ZYPREXA(R) oral tablets, intramuscular injection, olanzapine oral tablets, intramuscular injecti on. [employer], [place], [place], 2009) Collateral information obtained on 03/16 [address] Passenger Firer spoke with patient's mother Ko Arguello ([phone]).? Road Passenger Firer did not give her any information at all about her son but listened to her concerns (mother had called at least once before, wanting to share information).? Patient's mother expressed extreme concern.? She said that for months he has been deteriorating but that it has gotten much worse the past 2 weeks.? She said for a couple months patient was talking about people trying to harm him and poison him with food; subsequently his mom says he has not been eating very much and has lost significant weight.? She says he had cameras connected at his apartment to proved people were coming in an out in order to harm him.? He also started talking about they were attacking him with restorationism and hearing a voice to tell him to commit suicide and hurt other people however he said he knew better, meaning that it's not right to do so.? Mother said that his symptoms worsened over the past 2 weeks and he once was wandering the streets all night, coming home dirty; people in the community were noticing significant difference as patient is known and well liked in his neighborhood; ? She said he has become very paranoid repeating that people are trying to poison him and week prior to this admission, he threw out all the food in his refrigerator.? Mother said he was in distress, constantly saying people were attacking him through restorationism and trying to murder him in his sleep and threw food.? He also specifically identified his neighbor, who recently moved into the building, was attacking him with restorationism and told his mom ?I need to get rid of him...? I need to kick his ass since I know he is trying to kill me... She reports other times patient was unable to maintain a conversation, as he would stop to talk to himself.? His mother explained the incident that led to his admission to [facility] (where he only spent about 3 days, and was admitted to this hospital about 3 days after discharge) saying that he was at his friend's house, [place], locked himself in the bathroom and was screaming all night long, until 06:00 that people were trying to kill him, that he will let them kill him, praying to God to keep people from killing him and baking for it to stop.? When he came out of the bathroom he went to various pictures on the wall and started yelling at them.? Reportedly angel raza was fearful for his own safety and called crisis/911.? Soon after, she reports locked himself in his grandparents basement for 3 days, refusing to eat, talking to himself constantly, screaming and also making his grandfather fearful for both his and patients safety.? Patient's mother says that in the past he was on Invega and was doing great able to have normal, fluid conversations, in his right mind, outgoing, socially appropriate and his normal self.? She says he complained of getting erectile dysfunction from the medication and did not want to take it, however she reports he was complaining of erectile dysfunction months before he was ever on any medication.? Patient's [facility] worker also holds this perspective. 03/20/21: Continue current plan of care. 03/28/2021: No changes to primary team treatment plan Greater than 50% of the session was spent on counseling and/or coordination of care Reason for contiued inpatient stay Substantial Risk for: inability to function
[2021-04-11] MEDS: Nicotine Polacrilex 2 MG GUM BUCCAL ×6 (02:22→23:45)
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
[2021-04-11 18:00] VITALS: BP 115/66; PULSE 106; TEMP 37
[2021-04-11] MEDS: OLANZapine 10 MG VIAL IM (19:37)
--- NOTE | 2021-04-12 11:30 | P.PNPSI_ITS ---
Subjective Subjective Date of Service: 04/12/21 Reason For Visit: Psychosis Interim History: C D Reactor Operator met with patient who said he was doing fine. He said he did not take his scheduled medications last night because he preferred to get the IM Zyprexa. C D Reactor Operator however discussed that the Depakote is court ordered and it has been helping patient. He agreed to go ahead and take this medication from now on. Patient earlier refused lab work, but later on consented, however because he skipped his Depakote last night, lab work does not reveal accurate level. Patient did make a sexually food comment to staff member today. He also remains internally preoccupied and talking to himself, answered himself. Mental Status Exam Mental Status Exam Narrative: Alert to self, place, increasingly to situation; behavior calm, but intermittently making inappropriate unwanted sexualized comments to staff; less intrusive but remains so; good expansive; eye contact more appropriate;? Speech normal rate, volume and prosody; no?psychomotor agitation; thought process is more goal oriented and linear; Thought content? on discharge;? he Denies AVH, however he remains internally preoccupied and talking to and answering himself; he denies any SI/HI.? Patients insight and judgment are impaired but with some improvement Diagnostics Vital Signs (24Hr): Vital Signs - 24 hr 04/11/21 18:00 Temperature 98.6 F Pulse Rate 106 H Blood Pressure 115/66 Body Mass Index 21.3 Labs Results: 04/12/21 11:46 04/12/21 11:46 Imaging Radiology Impressions: ITS Impressions Elbow X-Ray 03/30/21 10:25 IMPRESSION: Small joint effusion. No fracture seen. If there is a history of trauma and clinical suspicion of fracture, follow-up x-ray in one week would be recommended. Medications Medications Current Medications Acetaminophen (Acetaminophen 325 Mg Tablet) 650 mg PO Q6H PRN PRN Reason: Headache/Pain Mild Scale (1-3) Last Admin: 03/29/21 12:36 Dose: 650 mg Documented by: Al Hydroxide/Mg Hydroxide (Magnesium Hydrox/Alum Hydrox 30 Ml Oral.Susp) 30 ml PO Q6H PRN PRN Reason: Heartburn/Nausea Divalproex Sodium (Divalproex Sodium 250 Mg Tablet.) 1,250 mg PO BEDTIME EUGENIA Magnesium Hydroxide (Milk Of Magnesia 30 Ml Oral.Susp) 30 ml PO DAILY PRN PRN Reason: Constipation Nicotine Polacrilex (Nicotine Polacrilex 2 Mg Gum) 2 mg BUCCAL Q1H PRN PRN Reason: Nicotine Cravings Last Admin: 04/11/21 23:45 Dose: 2 mg Documented by: Olanzapine (Olanzapine Odt 10 Mg Tab.Rapdis) 10 mg TRANSLINGU TID PRN PRN Reason: agitation Last Admin: 04/07/21 23:53 Dose: 10 mg Documented by: Olanzapine (Olanzapine 10 Mg Vial) 10 mg IM DAILY PRN PRN Reason: IF REFUSES PO or..agitation Last Admin: 04/11/21 19:37 Dose: 10 mg Documented by: Olanzapine (Olanzapine Odt 10 Mg Tab.Rapdis) 20 mg TRANSLINGU BEDTIME EUGENIA Last Admin: 04/11/21 19:57 Dose: Not Given Documented by: Omeprazole (Omeprazole 20 Mg Capsule.Dr) 20 mg PO DAILY PRN PRN Reason: GERD Quetiapine Fumarate (Quetiapine Fumarate 200 Mg Tablet) 200 mg PO BEDTIME EUGENIA Last Admin: 04/11/21 19:57 Dose: Not Given Documented by: Allergies Allergies Allergy/AdvReac Type Severity Reaction Status Date / Time diphenhydramine Allergy Unknown unknown Verified 10/12/20 04:33 [From BENADRYL] haloperidol [From HALDOL] Allergy Unknown unknown Verified 10/12/20 04:33 paliperidone AdvReac Severe dystonia Verified 03/30/21 23:47 Assessment & Plan Assessment & Plan (1) Schizoaffective disorder: Qualifiers: Schizoaffective disorder type: bipolar Qualified Code(s): F25.0 - Sc hizoaffective disorder, bipolar type Status: Acute Code(s): F25.9 - Schizoaffective disorder, unspecified Assessment and Plan: IMPRESSION: Jose is a 25 y.o. male who carries a diagnosis of schizoaffective disorder who presents after his grandparents called the ambulance out of concern for patient's disorganized behavior.? On 02/24/2021 patient presented to [facility] ED disorganized and ED note reads: 25 yo male with hx of anxiety, review of records show schizoaffective disorder, EMS was called today due to the patient kneeling outside, being jittery, acting off, no SI statements made, EMS notes the patient was just staring off...ROS unable to be obtained due to patient not really answering questions... Patient was discharged from the ED.? reportedly he went to his friend's house, was again acting bizarrely, kneeling in the center of the room with his shirt off, talking in a disorganized way to the point where his friend became scared, called 911 or crisis and patient was [facility] He was only there for a few days, [facility] was not contacted any was discharged without follow-up in place.? He then showed up at his grandparent's house, locked himself in their basement and was reportedly crying, not eating, not sleeping and talking, laughing to himself, saying people are telling him to commit suicide and crying, saying that aliens are coming.? Grandparents called for ambulance and patient was taken to [facility].? It was reported that on arrival to the emergency room he laid down on the bathroom floor. HOSPITAL COURSE: Patient initially presents as overall calm but has no insight, denies any of the past reported behaviors and repeatedly asks for discharge.? Patient does not want medications saying he does not need.? Patient remains on Section 12 B. He asked principal technical writer to call [facility] staff since they know him well. Of note, pt has hx of agitation, aggression and last time at [place] [id number], broke through locked fire exit by kicking in door and eloped -refusing medications -[facility]D worker John who knows him well believes that patient is ?getting worse? and decompensating.? As paranoid, persecutory delusions that hospital staff is trying to poison him.? Patient has other paranoid, persecutory delusions that his neighbor is attacking him with worship and has asked for help to get rid of him; also patient believes his for mother, family, friend are lying about him which has resulted in hospitalization.? -[facility] case resolution specialist agrees with civil commitment -Patient is on a Section 12. This is patient's 3rd presentation to a hospital in less than 2 weeks, and reportedly people in the community have been recently scared of him. He has seem to be CAH and Patient is reported to have made suicidal comments saying people are telling me to commit suicide. He has paranoid, persecutory delusions and is without any insight at all, refusing medications.? Patient has made threatening comments to staff while on the unit and sexualized and intimidating comments/behavior toward a specific female staff, requiring pt to be on 1;1 Patient also has history of making verbal threats and being extremely agitative and destructive of property.? At this time, team agrees that patient is at risk for harm to self or others and requires inpatient admission and medication for his and others safety.? Team will move forward with petition the court for civil commitment and substituted judgment. -Patient being titrated on Seroquel; he says he does not like this dose since it makes him tired during the day, though he has been seen in the milieu interacting pleasantly and not looking sedated. He wants medication lowered back to 50 mg and cannot understand that this dose is too low to treat psychotic symptoms. C D Reactor Operator offered to change medication that will be sedating but patient refuse -03/22 patient reports Seroquel is too sedating; he cannot accept or understand reasons for medication or increased dose of Seroquel as he remains without insight into his psychotic disorder. Will continue with Seroquel since that was his request and see if his body adapts and no longer feel sedated; however if he remains excessively tired, we will likely have to switch to another antipsychotic medication trial Switch to Paliperidone/Invega 03/25/21 -on 03/25 patient remains tired which he says is from Seroquel. Patient symptoms have not resolved at all despite Seroquel being titrated to almost 400 mg. Given that patient is intermittently sedated, and does not want to continue with Seroquel at this dose, will switch medication to Paliperidone which is on his Foley order and his mother reports was very effective in the past. C D Reactor Operator considered starting ziprasidone instead given that patient complained of erectile dysfunction on Paliperidone/Invega; however both his mother and case resolution specialist reported that his complaints of erectile dysfunction started prior to ever being on Paliperidone/Invega. Because this has been shown effective in the past, it seems that it is patient's best interest to have symptoms resolved as soon as possible, rather than endure another trial of a medication that might not work. C D Reactor Operator has attempted several times to discuss this potential medication change however patient has not been organized enough to tolerate discussion. Once patient is again stable and organized, he can always discussing med change with his outpatient provider. 03/29/21 pt less irritable; remians disorganized. Seems to have dystonic reaction which seems to have improved with cogentin. Labs ordered and NMS ruled out. 03/30/21 will discontinue Paliperidone as it caused dystonia; starting and titrating Abilify; remains manic/psychotic 04/02/21: Will continue med regimen per primary team, IM zyprexa 10 mg was utilized on evening of 04/01/21 due to combative and disruptive unsafe behaviors. Staff report positive benefit on olanzapine. 04/03/21: Discussed benefit on olanzapine with primary psychiatrist. Will discontinue abilify 20 mg due to lack of effect on disorganized and bizarre/ unsafe behavior, start zydis 10 mg QHS. Reviewed risks and benefits with Scott jackson. Ordered wound consult due to ulcer on L foot. 04/04 Abilify proved ineffective; patient started on Zyprexa which seems to be helping 04/05: Seemed at Zyprexa was helping however patient is now on Zyprexa 20 mg and remains floridly psychotic and manic. Patient is only 25 years old and principal technical writer would very much like to find a monotherapy treatment for this patient; however options are becoming limited. If patient does not make any improvement soon, will switch to Geodon; otherwise Prolixin remains last option for monotherapy (due to Foley), and considering that patient had dystonic reaction to Paliperidone, principal technical writer would prefer to avoid another medium to high potency antipsychotic. 04/06 started Ziprasidone 20mg BID, titrated to 40mg BID; medication had no effect. C D Reactor Operator wanted to continue titrating this medication however patient remains floridly manic, is destroying property, threatening staff On both his Zyprexa and ziprasidone he was mumbling to himself less, however he was still continually responding to internal stimuli. Unfortunately monotherapy does not seem to be working andDue to his disorganized, agitated and intermittently threatening behavior will start Depakote on 04/08 04/08 Depakote started; has been taking; seems a little less manic will switch to PM dosing to see if can alleviate daytime tiredness -Will continue Zyprexa for now, it is unclear if it is partially helpful or not all ( maybe less mumbling to himself but he remains continually responding to internal stimuli) -IF Depakote is helpful may just see if patient can do okay on Depakote and Seroquel which did reduce anna but at higher doses over sedated him. 04/11 patient calmer, more organized, not intrusive and with linear speech. Conversation was brief however and will need to monitor patient for a few more days to make sure he is able to continually demonstrate safe and appropriate behavior. However principal technical writer is cautiously hopeful that Depakote has made a significant difference. 04/12 patient remains improved, with less manic and less disorganized behavior, however he remains internally preoccupied and intermittently intimidating female staff with sexualized comments. Will increase his Depakote to 1250mg and hope that this small increase is enough to further reduce manic/psychotic symptoms C D Reactor Operator talked with Mother who reported a history of possible TBIs due to BMX bi min. PLAN: Court ordered Civil commitment and substituted judgment took off 1:1 since less manic (previously 1:1 for intrusive and intimidating behaviors to female staff (in past, pt made verbal threats to staff and sexualized comments and attempted to grab a female staff member) MEDICATION PLAN: Medical consult ordered due to left foot ulceration -INCREASED TO Depakote 1250mg qhs (pt taking tab); seems to be tamping down some manic symptoms -Zyprexa/zydis 20mg qhs (helped with some psychotic symptoms but no anna) -scheduled Seroquel 200mg at bedtime for continued insomnia -Seroquel 50mg TID for anxiety/agitation; (pt has tolerated Seroquel 100mg in past) -Cogentin 1mg PRN -IF REFUSES ZYPREXA PO: GIVE ZYPREXA IM -if pt requires chemical restraint...can use Zyprexa IM....But NOT WITH IM BENZO . -Ativan 1mg prn for panic/anxiety (pt asks for this) -Discontinued Paliperidone (caused dystonia) -discontinued Abilify since not effective -discontinued Seroquel since overly sedating -dIScontinued ziprasidone as it has not seemed to help much ( maybe less mumbling to himself but he remains continually responding to internal stimuli) [facility] contacted (pt gave verbal permission to call and involve [facility] in his case) pt gave verbal permission to call and involve mother in his case DONNA MEDICATON: Seroquel: too sedating Zyprexa Fluphenazine Abilify: NOT effective Paliperidone/invega: dystonic reaction Risperdal Ziprasidone Depakote trazodone Medication hx: -Of note, discharge summary from 2018 reports that patient did well on Zyprexa 20 mg. -patient however reports that Zyprexa 'harmed him and he prefers Seroquel; -Mother reports patient did well on Invega Sustenna; pt c/o erectile dysfunction on this med but mother reports this was complaint before pt on meds. -Dystonic reaction to paliperidon Regarding zypexa with benzo's: [employer] states Concomitant use: Concurrent use of parenteral benzodiazepine and IM olanzapine is not recommended; if considered, monitor for excessive sedation and cardiorespiratory depression (Product Information: ZYPREXA(R) oral tablets, intramuscular injection, olanzapine oral tablets, intramuscular injection. [employer], [place], [place], 2009) Collateral information obtained on 03/16 C D Reactor Operator spoke with patient's mother Ko Arguello ([phone]).? C D Reactor Operator did not give her any information at all about her son but listened to her concerns (mother had called at least once before, wanting to share information).? Patient's mother expressed extreme concern.? She said that for months he has been deteriorating but that it has gotten much worse the past 2 weeks.? She said for a couple months patient was talking about people trying to harm him and poison him with food; subsequently his mom says he has not been eating very much and has lost significant weight.? She says he had cameras connected at his apartment to proved people were coming in an out in order to harm him.? He also started talking about they were attacking him with worship and hearing a voice to tell him to commit suicide and hurt other people however he said he knew better, meaning that it's not right to do so.? Mother said that his symptoms worsened over the past 2 weeks and he once was wandering the streets all night, coming home dirty; people in the community were noticing significant difference as patient is known and well liked in his neighborhood; ? She said he has become very paranoid repeating that people are trying to poison him and week prior to this admission, he threw out all the food in his refrigerator.? Mother said he was in distress, constantly saying people were attacking him through worship and trying to murder him in his sleep and threw food.? He also specifically identified his neighbor, who recently moved into the building, was attacking him with worship and told his mom ?I need to get rid of him...? I need to kick his ass since I know he is trying to kill me... She reports other times patient was unable to maintain a conversation, as he would stop to talk to himself.? His mother explained the incident that led to his admission to [facility] (where he only spent about 3 days, and was admitted to this hospital about 3 days after discharge) saying that he was at his friend's house, [place], locked himself in the bathroom and was screaming all night long, until 06:00 that people were trying to kill him, that he will let them kill him, praying to God to keep people from killing him and baking for it to stop.? When he came out of the bathroom he went to various pictures on the wall and started yelling at them.? Reportedly angel raza was fearful for his own safety and called crisis/911.? Soon after, she reports locked himself in his grandparents basement for 3 days, refusing to eat, talking to himself constantly, screaming and also making his grandfather fearful for both his and patients safety.? Patient's mother says t hat in the past he was on Invega and was doing great able to have normal, fluid conversations, in his right mind, outgoing, socially appropriate and his normal self.? She says he complained of getting erectile dysfunction from the medication and did not want to take it, however she reports he was complaining of erectile dysfunction months before he was ever on any medication.? Patient's [facility] worker also holds this perspective. 03/20/21: Continue current plan of care. 03/28/2021: No changes to primary team treatment plan Greater than 50% of the session was spent on counseling and/or coordination of care Reason for contiued inpatient stay Substantial Risk for: inability to function and rapid decompensation
[2021-04-12 11:50] LABS: MANUAL DIFF FLAG NO
[2021-04-12 11:56] LABS: Basophils Absolute Auto 0.1 X10*3/uL (0.0-0.2); Basophils Percent Auto 0.8 % (0-2); Eosinophils Absolute Auto 0.3 X10*3/uL (0.0-0.4); Eosinophils Percent Auto 4.1 % (0-4); Hematocrit 42.4 % (42-52); Hemoglobin 14.8 g/dl (14.0-18.0); Imm Gran Abs Auto 0.03 X10*3/uL (0.00-0.03); Imm Gran Pct Auto 0.5 % (0.0-0.4); Lymphocytes Absolute Auto 1.7 X10*3/uL (1.2-4.9); Lymphocytes Percent Auto 27.6 % (20-40); Mean Corpuscular HGB Conc 34.9 g/dl (31.0-36.0); Mean Corpuscular Hemoglobin 31.8 pg (27.0-33.0); Mean Corpuscular Volume 91.2 fL (80-98); Mean Platelet Volume 9.3 fL (9.4-12.4); Monocytes Absolute Auto 0.4 X10*3/uL (0.1-1.2); Monocytes Percent Auto 6.8 % (2-11); Neutrophils Absolute Auto 3.6 X10*3/uL (2.0-8.3); Neutrophils Percent Auto 60.2 % (45-73); Platelet Count 224 X10*3/uL (160-400); Red Blood Count 4.65 X10*6/uL (4.60-5.80); Red Cell Distribution Width 12.1 % (11.0-16.0); White Blood Count 6.1 X10*3/uL (4.8-10.8)
[2021-04-12 12:28] LABS: Alanine Aminotransferase 75 U/L (0-40); Albumin Level 4.2 g/dL (3.5-5.0); Alkaline Phosphatase 66 U/L (39-117); Anion Gap 13 (12-20); Aspartate Amino Transferase 32 U/L (5-37); Bilirubin Direct < 0.2 mg/dL (0.0-0.5); Bilirubin Total 0.3 mg/dL (0.0-1.0); Blood Urea Nitrogen 17 mg/dL (9-16); Carbon Dioxide 25 mmol/L (22-29); Chloride 108 mmol/L (96-108); Creatinine Clr Calc Pharmacy 109.4; Estimated Glomerular Filt Rate > 60; Potassium 4.2 mmol/L (3.3-5.1); Sodium 142 mmol/L (135-145); Total Protein 6.6 g/dL (6.5-8.0)
[2021-04-12 12:42] LABS: Valproate 6.2 mcg/mL (50.0-100.0)
[2021-04-12 12:49] LABS: Ammonia 44 umol/L (13-55)
[2021-04-12] MEDS: Nicotine Polacrilex 2 MG GUM BUCCAL ×2 (14:44→21:51)
[2021-04-12 18:00] VITALS: BP 124/74; PULSE 87; TEMP 37.1
[2021-04-12 19:50] VITALS: BP 151/72; PULSE 91; TEMP 36.3
[2021-04-12] MEDS: OLANZapine 10 MG VIAL IM (20:06)
[2021-04-13] MEDS: Nicotine Polacrilex 2 MG GUM BUCCAL ×4 (02:26→23:49)
--- NOTE | 2021-04-13 12:18 | P.PNPSI_ITS ---
Subjective Subjective Date of Service: 04/13/21 Reason For Visit: Psychosis Interim History: pt laughing to himself, self-dialoguing. Refused depakote today and said he just wants IM shot. Arc Air Operator attempted to discuss medication regimen, but pt unable to tolerate conversation and turned away. Pt's CHD worker John came in to discuss case and meet with patient. Mental Status Exam Mental Status Exam Narrative: ?Alert to self, place, but not to situation; behavior calm, but intermittently disorganized, internally stimulated and making inappropriate unwanted sexualized comments to staff; less intrusive but remains so;mood is good affect constricted or labile expansive;? eye contact more appropriate;? Speech normal rate, volume and prosody; no?psychomotor agitation; thought proces s is more goal oriented and linear; Thought content? on discharge;? he Denies AVH, however he remains internally preoccupied and talking to and answering himself; he denies any SI/HI.? Patients insight and judgment are impaired improvement Diagnostics Vital Signs (24Hr): Vital Signs - 24 hr 04/12/21 18:00 04/12/21 19:50 Temperature 98.7 F 97.4 F Pulse Rate 87 91 Blood Pressure 124/74 151/72 H Body Mass Index 21.3 Labs Results: 04/12/21 11:46 04/12/21 11:46 Labs: Laboratory Results - last 48 hr 04/12/21 04/12/21 04/12/21 11:46 11:46 11:46 WBC 6.1 RBC 4.65 Hgb 14.8 Hct 42.4 MCV 91.2 MCH 31.8 MCHC 34.9 RDW 12.1 Plt Count 224 D MPV 9.3 L Immature Gran % (Auto) 0.5 H Neut % (Auto) 60.2 Lymph % (Auto) 27.6 [place] % (Auto) 6.8 Eos % (Auto) 4.1 H Baso % (Auto) 0.8 Lymph # (Auto) 1.7 [place] # (Auto) 0.4 Eos # (Auto) 0.3 Baso # (Auto) 0.1 Abs Immat Gran (auto) 0.03 Absolute Neuts (auto) 3.6 Absolute Nucleated RBC 0.000 Nucleated RBC % (auto) 0.0 Sodium 142 Potassium 4.2 Chloride 108 Carbon Dioxide 25 Anion Gap 13 BUN 17 H Creatinine 1.10 Estim Creat Clear Calc 109.4 Estimated GFR > 60 Total Bilirubin 0.3 Direct Bilirubin < 0.2 AST 32 ALT 75 H Alkaline Phosphatase 66 Ammonia 44 Total Protein 6.6 Albumin 4.2 Valproic Acid 6.2 L Imaging Radiology Impressions: ITS Impressions Elbow X-Ray 03/30/21 10:25 IMPRESSION: Small joint effusion. No fracture seen. If there is a history of trauma and clinical suspicion of fracture, follow-up x-ray in one week would be recommended. Medications Medications Current Medications Acetaminophen (Acetaminophen 325 Mg Tablet) 650 mg PO Q6H PRN PRN Reason: Headache/Pain Mild Scale (1-3) Last Admin: 03/29/21 12:36 Dose: 650 mg Documented by: Al Hydroxide/Mg Hydroxide (Magnesium Hydrox/Alum Hydrox 30 Ml Oral.Susp) 30 ml PO Q6H PRN PRN Reason: Heartburn/Nausea Divalproex Sodium (Divalproex Sodium Er 250 Mg Tab.Er.24h) 250 mg PO DAILY EUGENIA Divalproex Sodium (Divalproex Sodium Er 500 Mg Tab.Er.24h) 1,000 mg PO DAILY EUGENIA Magnesium Hydroxide (Milk Of Magnesia 30 Ml Oral.Susp) 30 ml PO DAILY PRN PRN Reason: Constipation Nicotine Polacrilex (Nicotine Polacrilex 2 Mg Gum) 2 mg BUCCAL Q1H PRN PRN Reason: Nicotine Cravings Last Admin: 04/13/21 02:26 Dose: 2 mg Documented by: Olanzapine (Olanzapine Odt 10 Mg Tab.Rapdis) 10 mg TRANSLINGU TID PRN PRN Reason: agitation Last Admin: 04/07/21 23:53 Dose: 10 mg Documented by: Olanzapine (Olanzapine Odt 10 Mg Tab.Rapdis) 20 mg TRANSLINGU BEDTIME EUGENIA Last Admin: 04/12/21 19:55 Dose: Not Given Documented by: Olanzapine (Olanzapine 10 Mg Vial) 20 mg IM DAILY PRN PRN Reason: IF REFUSES PO or..agitation Omeprazole (Omeprazole 20 Mg Capsule.Dr) 20 mg PO DAILY PRN PRN Reason: GERD Quetiapine Fumarate (Quetiapine Fumarate 200 Mg Tablet) 200 mg PO BEDTIME EUGENIA Last Admin: 04/12/21 19:55 Dose: Not Given Documented by: Allergies Allergies Allergy/AdvReac Type Severity Reaction Status Date / Time diphenhydramine Allergy Unknown unknown Verified 10/12/20 04:33 [From BENADRYL] haloperidol [From HALDOL] Allergy Unknown unknown Verified 10/12/20 04:33 paliperidone AdvReac Severe dystonia Verified 03/30/21 23:47 Assessment & Plan Assessment & Plan (1) Schizoaffective disorder: Qualifiers: Schizoaffective disorder type: bipolar Qualified Code(s): F25.0 - Schizoaffective disorder, bipolar type Status: Acute Code(s): F25.9 - Schizoaffective disorder, unspecified Assessment and Plan: IMPRESSION: Jose is a 25 y.o. male who carries a diagnosis of schizoaffective disorder who presents after his grandparents called the ambulance out of concern for patient's disorganized behavior.? On 02/24/2021 patient presented to [facility] ED disorganized and ED note reads: 25 yo male with hx of anxiety, review of records show schizoaffective disorder, EMS was called today due to the patient kneeling outside, being jittery, acting off, no SI statements made, EMS notes the patient was just staring off...ROS unable to be obtained due to patient not really answering questions... Patient was discharged from the ED.? reportedly he went to his friend's house, was again acting bizarrely, kneeling in the center of the room with his shirt off, talking in a disorganized way to the point where his friend became scared, called 911 or crisis and patient was admitted to [facility].? He was only there for a few days, CHD was not contacted any was discharged without follow-up in place.? He then showed up at his grandparent's house, locked himself in their basement and was reportedly crying, not eating, not sleeping and talking, laughing to himself, saying people are telling him to commit suicide and crying, saying that aliens are coming.? Grandparents called for ambulance and patient was taken to [facility].? It was reported that on arrival to the emergency room he laid down on the bathroom floor. HOSPITAL COURSE: Patient initially presents as overall calm but has no insight, denies any of the past reported behaviors and repeatedly asks for discharge.? Patient does not want medications saying he does not need.? Patient remains on Section 12 B. He asked magazine writer to call [facility] staff since they know him well. Of note, pt has hx of agitation, aggression and last time at [place] [facility], broke through locked fire exit by kicking in door and eloped -refusing medications -CHD worker John who knows him well believes that patient is ?getting worse? and decompensating.? As paranoid, persecutory delusions that hospital staff is trying to poison him.? Patient has other paranoid, persecutory delusions that his neighbor is attacking him with moravian and has asked for help to get rid of him; also patient believes his for mother, family, friend are lying about him w hich has resulted in hospitalization.? -[facility] lining caser agrees with civil commitment -Patient is on a Section 12. This is patient's 3rd presentation to a hospital in less than 2 weeks, and reportedly people in the community have been recently scared of him. He has seem to be CAH and Patient is reported to have made suicidal comments saying people are telling me to commit suicide. He has paranoid, persecutory delusions and is without any insight at all, refusing medications.? Patient has made threatening comments to staff while on the unit and sexualized and intimidating comments/behavior toward a specific female staff, requiring pt to be on 1;1 Patient also has history of making verbal thr eats and being extremely agitative and destructive of property.? At this time, team agrees that patient is at risk for harm to self or others and requires inpatient admission and medication for his and others safety.? Team will move forward with petition the court for civil commitment and substituted judgment. -Patient being titrated on Seroquel; he says he does not like this dose since it makes him tired during the day, though he has been seen in the milieu interacting pleasantly and not looking sedated. He wants medication lowered back to 50 mg and cannot understand that this dose is too low to treat psychotic symptoms. Arc Air Operator offered to change medication that will be sedating but patient refuse -03/22 patient reports Seroquel is too sedating; he cannot accept or understand reasons for medication or increased dose of Seroquel as he remains without insight into his psychotic disorder. Will continue with Seroquel since that was his request and see if his body adapts and no longer feel sedated; however if he remains excessively tired, we will likely have to switch to another antipsy chotic medication trial Switch to Paliperidone/Invega 03/25/21 -on 03/25 patient remains tired which he says is from Seroquel. Patient symptoms have not resolved at all despite Seroquel being titrated to almost 400 mg. Given that patient is intermittently sedated, and does not want to continue with Seroquel at this dose, will switch medication to Paliperidone which is on his Foley order and his mother reports was very effective in the past. Arc Air Operator considered starting ziprasidone instead given that patient complained of erectile dysfunction on Paliperidone/Invega; however both his mother and lining caser reported that his complaints of erectile dysfunction started prior to ever being on Paliperidone/Invega. Because this has been shown effective in the past, it seems that it is patient's best interest to have symptoms resolved as soon as possible, rather than endure another trial of a medication that might not work. Arc Air Operator has attempted several times to discuss this potential medication change however patient has not been organized enough to tolerate discussion. Once patient is again stable and organized, he can always discussing med change with his outpatient provider. 03/29/21 pt less irritable; remians disorganized. Seems to have dystonic reaction which seems to have improved with cogentin. Labs ordered and NMS ruled out. 03/30/21 will discontinue Paliperidone as it caused dystonia; starting and titrating Abilify; remains manic/psychotic 04/02/21: Will continue med regimen per primary team, IM zyprexa 10 mg was utilized on evening of 04/01/21 due to combative and disruptive unsafe behaviors. Staff report positive benefit on olanzapine. 04/03/21: Discussed benefit on olanzapine with primary psychiatrist. Will discontinue abilify 20 mg due to lack of effect on disorganized and bizarre/ unsafe behavior, start zydis 10 mg QHS. Reviewed risks and benefits with Jose. Ordered wound consult due to ulcer on L foot. 04/04 Abilify proved ineffective; patient started on Zyprexa which seems to be helping 04/05: Seemed at Zyprexa was helping however patient is now on Zyprexa 20 mg and remains floridly psychotic and manic. Patient is only 25 years old and magazine writer would very much like to find a monotherapy treatment for this patient; however options are becoming limited. If patient does not make any improvement soon, will switch to Geodon; otherwise Prolixin remains last option for monotherapy (due to Foley), and considering that patient had dystonic reaction to Paliperidone, magazine writer would prefer to avoid another medium to high potency antipsychotic. 04/06 started Ziprasidone 20mg BID, titrated to 40mg BID; medication had no effect. Arc Air Operator wanted to continue titrating this medication however patient remains floridly manic, is destroying property, threatening staff On both his Zyprexa and ziprasidone he was mumbling to himself less, however he was still continually responding to internal stimuli. Unfortunately monotherapy does not seem to be working andDue to his disorganized, agitated and intermitt ently threatening behavior will start Depakote on 04/08 04/08 Depakote started; has been taking; seems a little less manic will switch to PM dosing to see if can alleviate daytime tiredness -Will continue Zyprexa for now, it is unclear if it is partially helpful or not all ( maybe less mumbling to himself but he remains continually responding to internal stimuli) -IF Depakote is helpful may just see if patient can do okay on Depakote and Seroquel which did reduce anna but at higher doses over sedated him. 04/11-04/13 patient with some minimal improvement, a little more calm and organized, with more organized speech. He was taking Depakote which likely helped with improvement. however, he has recently been refusing again and continues to be distracted by internal dialogue, talking to and answering to himself; laughing hilariously inappropriately. Trying to decrease number of pills pt has to take to see if this can help with adherence. Still has no insight. -seems to want IM; for now will not give it for refusal of depakote, just for refusal of Zydis Arc Air Operator talked with Mother who reported a history of possible TBIs due to BMX biking. PLAN: Court ordered Civil commitment and substituted judgment took off 1:1 since less manic (previously 1:1 for intrusive and intimidating behaviors to female staff (in past, pt made verbal threats to staff and sexualized comments and attempted to grab a female staff member) MEDICATION PLAN: Medical consult ordered due to left foot ulceration - Depakote ER 1250mg daytime; (pt taking tab); initially seemed to be tamping down some manic symptoms -Zyprexa/zydis 20mg qhs (helped with some psychotic symptoms but no anna) -scheduled Seroquel 200mg at bedtime for continued insomnia -Seroquel 50mg TID for anxiety/agitation; (pt has tolerated Seroquel 100mg in past) -Cogentin 1mg PRN -IF REFUSES ZYPREXA PO: GIVE ZYPREXA IM -if pt requires chemical restraint...can use Zyprexa IM....But NOT WITH IM BENZO . -Ativan 1mg prn for panic/anxiety (pt asks for this) -Discontinued Paliperidone (caused dystonia) -discontinued Abilify since not effective -discontinued Seroquel since overly sedating -dIScontinued ziprasidone as it has not seemed to help much ( maybe less mumbling to himself but he remains continually responding to internal stimuli) CHD contacted (pt gave verbal permission to call and involve CHD in his case) pt gave verbal permission to call and involve mother in his case DONNA MEDICATON: Seroquel: too sedating Zyprexa Fluphenazine Abilify: NOT effective Paliperidone/invega: dystonic reaction Risperdal Ziprasidone Depakote trazodone Medication hx: -Of note, discharge summary from 2018 reports that patient did well on Zyprexa 20 mg. -patient however reports that Zyprexa 'harmed him and he prefers Seroquel; -Mother reports patient did well on Invega Sustenna; pt c/o erectile dysfunction on this med but mother reports this was complaint before pt on meds. -Dystonic reaction to paliperidon Regarding zypexa with benzo's: [employer] states Concomitant use: Concurrent use of parenteral benzodiazepine and IM olanzapine is not recommended; if considered, monitor for excessive sedation and cardiorespiratory depression (Product Information: ZYPREXA(R) oral tablets, intramuscular injection, olanzapine oral tablets, intramuscular injection. [employer], [place], [place], 2010) Collateral information obtained on 03/16 Arc Air Operator spoke with patient's mother Ko Arguello ([phone]).? Arc Air Operator did not give her any information at all about her son but listened to her concerns (mother had called at least once before, wanting to share information).? Patient's mother expressed extreme concern.? She said that for months he has been deteriorating but that it has gotten much worse the past 2 weeks.? She said for a couple months patient was talking about people trying to harm him and poison him with food; subsequently his mom says he has not been eating very much and has lost significant weight.? She says he had cameras connected at his apartment to proved people were coming in an out in order to harm him.? He also started talking about they were attacking him with moravian and hearing a voice to tell him to commit suicide and hurt other people however he said he knew better, meaning that it's not right to do so.? Mother said that his symptoms worsened over the past 2 weeks and he once was wandering the streets all night, coming home dirty; people in the community were noticing significant difference as patient is known and well liked in his neighborhood; ? She said he has become very paranoid repeating that people are trying to poison him and week prior to this admission, he threw out all the food in his refrigerator.? Mother said he was in distress, constantly saying people were attacking him through moravian and trying to murder him in his sleep and threw food.? He also specifically identified his neighbor, who recently moved into the building, was attacking him with moravian and told his mom ?I need to get rid of him...? I need to kick his ass since I know he is trying to kill me... She reports other times patient was unable to maintain a conversation, as he would stop to talk to himself.? His m other explained the incident that led to his admission to [facility] (where he only spent about 3 days, and was admitted to this hospital about 3 days after discharge) saying that he was at his friend's house, [place], locked himself in the bathroom and was screaming all night long, until 06:00 that people were trying to kill him, that he will let them kill him, praying to God to keep people from killing him and baking for it to stop.? When he came out of the bathroom he went to various pictures on the wall and started yelling at them.? Reportedly angel raza was fearful for his own safety and called crisis/911.? Soon after, she reports locked himself in his grandparents basement for 3 days, refusing to eat, talking to himself constantly, screaming and also making his grandfather fearful for both his and patients safety.? Patient's mother says that in the past he was on Invega and was doing great able to have normal, fluid conversations, in his right mind, outgoing, socially appropriate and his normal self.? She says he complained of getting erectile dysfunction from the medication and did not want to take it, however she reports he was complaining of erectile dysfunction months before he was ever on any medication.? Patient's CHD worker also holds this perspective. 03/20/21: Continue current plan of care. 03/28/2021: No changes to primary team treatment plan Greater than 50% of the session was spent on counseling and/or coordination of care Reason for contiued inpatient stay Substantial Risk for: inability to function
[2021-04-13 18:00] VITALS: BP 145/79; PULSE 109; RESP 18; TEMP 36.4; O2SAT 97
[2021-04-13] MEDS: Divalproex Sodium ER 500 MG TAB.ER.24H 1000 MG PO (18:40)
[2021-04-13] MEDS: OLANZapine ODT 10 MG TAB.RAPDIS 20 MG TRANSLINGU (21:38)
[2021-04-13] MEDS: QUEtiapine Fumarate 200 MG TABLET PO (21:39)
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
--- NOTE | 2021-04-14 14:28 | PC.NURSE ---
Patient refused an assessment on his right foot.
[2021-04-14] MEDS: OLANZapine ODT 10 MG TAB.RAPDIS 20 MG TRANSLINGU (19:14)
[2021-04-14 19:28] VITALS: BP 128/67; PULSE 103; TEMP 36.7
[2021-04-14] MEDS: QUEtiapine Fumarate 200 MG TABLET PO (20:53)
[2021-04-14] MEDS: Nicotine Polacrilex 2 MG GUM BUCCAL (21:28)
[2021-04-15] MEDS: OLANZapine 10 MG VIAL 20 MG IM (11:23)
[2021-04-15] MEDS: Nicotine Polacrilex 2 MG GUM BUCCAL ×2 (12:24→23:47)
--- NOTE | 2021-04-15 16:24 | MHC.CLN ---
F/U PER 04/13 NOTE, RIGHT HEEL WOUND IS HEALING/IS BLISTER. 04/14 NOTED THAT REFUSED SKIN ASSESSMENT. CONTINUE REGULAR DIET WITH ENSURE TID (1050 KCAL, 60 G PROTEIN). RD AVAILABLE BY CONSULT.
--- NOTE | 2021-04-15 16:45 | P.PNPSI_ITS ---
Subjective Subjective Date of Service: 04/15/21 Reason For Visit: Psychosis Interim History: Patient said hello, and then that he was ?all? and then started to walk away. Floor Coverings Salesperson tried to re-engage but patient kept walking. He was willing to look back and say he does not like Depakote that it is too many pills... have to lower the number of pills; he also refuses to take liquid. Mental Status Exam Mental Status Exam Narrative: Alert to self, place, but not to? situation; behavior is calm, but intermittently disorganized, internally stimulated and making inappropriate unwanted sexualized comments to staff; less intrusive but remains so;mood is alright affect either constricted or labile/expansive;? eye contact more avoidant;? Speech normal rate, volume and prosody; no?psychomotor agitation; thought process is more goal oriented and linear; Thought content?on discharge;? he Denies AVH, however he remains internally preoccupied and talking to and answering himself; he denies any SI/HI.? Patients insight and judgment are impaired improvement Diagnostics Vital Signs (24Hr): Vital Signs - 24 hr 04/14/21 19:28 Temperature 98.0 F Pulse Rate 103 H Blood Pressure 128/67 Body Mass Index 21.3 Labs Results: 04/12/21 11:46 04/12/21 11:46 Imaging Radiology Impressions: ITS Impressions Elbow X-Ray 03/30/21 10:25 IMPRESSION: Small joint effusion. No fracture seen. If there is a history of trauma and clinical suspicion of fracture, follow-up x-ray in one week would be recommended. Medications Medications Current Medications Acetaminophen (Acetaminophen 325 Mg Tablet) 650 mg PO Q6H PRN PRN Reason: Headache/Pain Mild Scale (1-3) Last Admin: 03/29/21 12:36 Dose: 650 mg Documented by: Al Hydroxide/Mg Hydroxide (Magnesium Hydrox/Alum Hydrox 30 Ml Oral.Susp) 30 ml PO Q6H PRN PRN Reason: Heartburn/Nausea Divalproex Sodium (Divalproex Sodium Er 250 Mg Tab.Er.24h) 250 mg PO DAILY EUGENIA Last Admin: 04/15/21 11:28 Dose: Not Given Documented by: Divalproex Sodium (Divalproex Sodium Er 500 Mg Tab.Er.24h) 1,000 mg PO DAILY SC H Last Admin: 04/15/21 11:28 Dose: Not Given Documented by: Magnesium Hydroxide (Milk Of Magnesia 30 Ml Oral.Susp) 30 ml PO DAILY PRN PRN Reason: Constipation Nicotine Polacrilex (Nicotine Polacrilex 2 Mg Gum) 2 mg BUCCAL Q1H PRN PRN Reason: Nicotine Cravings Last Admin: 04/15/21 12:24 Dose: 2 mg Documented by: Olanzapine (Olanzapine Odt 10 Mg Tab.Rapdis) 10 mg TRANSLINGU TID PRN PRN Reason: agitation Last Admin: 04/07/21 23:53 Dose: 10 mg Documented by: Olanzapine (Olanzapine Odt 10 Mg Tab.Rapdis) 30 mg TRANSLINGU BEDTIME EUGENIA Olanzapine (Olanzapine 10 Mg Vial) 20 mg IM BID PRN PRN Reason: IF REFUSES PO or..agitation Omeprazole (Omeprazole 20 Mg Capsule.Dr) 20 mg PO DAILY PRN PRN Reason: GERD Quetiapine Fumarate (Quetiapine Fumarate 200 Mg Tablet) 200 mg PO BEDTIME EUGENIA Last Admin: 04/14/21 20:53 Dose: 200 mg Documented by: Allergies Allergies Allergy/AdvReac Type Severity Reaction Status Date / Time diphenhydramine Allergy Unknown unknown Verified 10/12/20 04:33 [From BENADRYL] haloperidol [From HALDOL] Allergy Unknown unknown Verified 10/12/20 04:33 paliperidone AdvReac Severe dystonia Verified 03/30/21 23:47 Assessment & Plan Assessment & Plan (1) Schizoaffective disorder: Qualifiers: Schizoaffective disorder type: bipolar Qualified Code(s): F25.0 - Schizoaffective disorder, bipolar type Status: Acute Code(s): F25.9 - Schizoaffective disorder, unspecified Assessment and Plan: IMPRESSION: Jose is a 25 y.o. male who carries a diagnosis of schizoaffective disorder who presents after his grandparents called the ambulance out of concern for patient's disorganized behavior.? On 02/24/2021 patient presented to [facility] ED disorganized and ED note reads: 25 yo male with hx of anxiety, review of records show schizoaffective disorder, EMS was called today due to the patient kneeling outside, being jittery, acting off, no SI statements made, EMS notes the patient was just staring off...ROS unable to be obtained due to patient not really answering questions... Patient was discharged from the ED.? reportedly he went to his friend's house, was again acting bizarrely, kneeling in the center of the room with his shirt off, talking in a disorganized way to the point where his friend became scared, called 911 or crisis and patient was admitted to [facility].? He was only there for a few days, [facility]D was not contacted any was discharged without follow-up in place.? He then showed up at his grandparent's house, locked himself in their basement and was reportedly crying, not eating, not sleeping and talking, laughing to himself, saying people are telling him to commit suicide and crying, saying that aliens are coming.? Grandparents called for ambulance and patient was taken to [facility].? It was reported that on arrival to the emergency room he laid down on the bathroom floor. HOSPITAL COURSE: Patient initially presents as overall calm but has no insight, denies any of the past reported behaviors and repeatedly asks for discharge.? Patient does not want medications saying he does not need.? Patient remains on Section 12 B. He asked business writer to call [facility] staff since they know him well. Of note, pt has hx of agitation, aggression and last time at [place] [address], broke through locked fire exit by kicking in door and eloped -refusing medications -[facility]D worker John who knows him well believes that patient is ?getting worse? and decompensating.? As paranoid, persecutory delusions that hospital staff is trying to poison him.? Patient has other paranoid, persecutory delusions that his neighbor is attacking him with gnosticist and has asked for help to get rid of him; also patient believes his for mother, family, friend are lying about him w hich has resulted in hospitalization.? -[facility] manager of case management agrees with civil commitment -Patient is on a Section 12. This is patient's 3rd presentation to a hospital in less than 2 weeks, and reportedly people in the community have been recently scared of him. He has seem to be CAH and Patient is reported to have made suicidal comments saying people are telling me to commit suicide. He has paranoid, persecutory delusions and is without any insight at all, refusing medications.? Patient has made threatening comments to staff while on the unit and sexualized and intimidating comments/behavior toward a specific female staff, requiring pt to be on 1;1 Patient also has history of making verbal thr eats and being extremely agitative and destructive of property.? At this time, team agrees that patient is at risk for harm to self or others and requires inpatient admission and medication for his and others safety.? Team will move forward with petition the court for civil commitment and substituted judgment. -Patient being titrated on Seroquel; he says he does not like this dose since it makes him tired during the day, though he has been seen in the milieu interacting pleasantly and not looking sedated. He wants medication lowered back to 50 mg and cannot understand that this dose is too low to treat psychotic symptoms. Floor Coverings Salesperson offered to change medication that will be sedating but patient refuse -03/22 patient reports Seroquel is too sedating; he cannot accept or understand reasons for medication or increased dose of Seroquel as he remains without insight into his psychotic disorder. Will continue with Seroquel since that was his request and see if his body adapts and no longer feel sedated; however if he remains excessively tired, we will likely have to switch to another antipsy chotic medication trial Switch to Paliperidone/Invega 03/25/21 -on 03/25 patient remains tired which he says is from Seroquel. Patient symptoms have not resolved at all despite Seroquel being titrated to almost 400 mg. Given that patient is intermittently sedated, and does not want to continue with Seroquel at this dose, will switch medication to Paliperidone which is on his Foley order and his mother reports was very effective in the past. Floor Coverings Salesperson considered starting ziprasidone instead given that patient complained of erectile dysfunction on Paliperidone/Invega; however both his mother and manager of case management reported that his complaints of erectile dysfunction started prior to ever being on Paliperidone/Invega. Because this has been shown effective in the past, it seems that it is patient's best interest to have symptoms resolved as soon as possible, rather than endure another trial of a medication that might not work. Floor Coverings Salesperson has attempted several times to discuss this potential medication change however patient has not been organized enough to tolerate discussion. Once patient is again stable and organized, he can always discussing med change with his outpatient provider. 03/29/21 pt less irritable; remians disorganized. Seems to have dystonic reaction which seems to have improved with cogentin. Labs ordered and NMS ruled out. 03/30/21 will discontinue Paliperidone as it caused dystonia; starting and titrating Abilify; remains manic/psychotic 04/02/21: Will continue med regimen per primary team, IM zyprexa 10 mg was utilized on evening of 04/01/21 due to combative and disruptive unsafe behaviors. Staff report positive benefit on olanzapine. 04/03/21: Discussed benefit on olanzapine with primary psychiatrist. Will discontinue abilify 20 mg due to lack of effect on disorganized and bizarre/ unsafe behavior, start zydis 10 mg QHS. Reviewed risks and benefits with Jose. Ordered wound consult due to ulcer on L foot. 04/04 Abilify proved ineffective; patient started on Zyprexa which seems to be helping 04/05: Seemed at Zyprexa was helping however patient is now on Zyprexa 20 mg and remains floridly psychotic and manic. Patient is only 25 years old and business writer would very much like to find a monotherapy treatment for this patient; however options are becoming limited. If patient does not make any improvement soon, will switch to Geodon; otherwise Prolixin remains last option for monotherapy (due to Foley), and considering that patient had dystonic reaction to Paliperidone, business writer would prefer to avoid another medium to high potency antipsychotic. 04/06 started Ziprasidone 20mg BID, titrated to 40mg BID; medication had no effect. Floor Coverings Salesperson wanted to continue titrating this medication however patient remains floridly manic, is destroying property, threatening staff On both his Zyprexa and ziprasidone he was mumbling to himself less, however he was still continually responding to internal stimuli. Unfortunately monotherapy does not seem to be working andDue to his disorganized, agitated and intermitt ently threatening behavior will start Depakote on 04/08 04/08 Depakote started; has been taking; seems a little less manic will switch to PM dosing to see if can alleviate daytime tiredness -Will continue Zyprexa for now, it is unclear if it is partially helpful or not all ( maybe less mumbling to himself but he remains continually responding to internal stimuli) -IF Depakote is helpful may just see if patient can do okay on Depakote and Seroquel which did reduce anna but at higher doses over sedated him. 04/11-04/13 patient with some minimal improvement, a little more calm and organized, with more organized speech. He was taking Depakote which likely helped with improvement. however, he has recently been refusing again and continues to be distracted by internal dialogue, talking to and answering to himself; laughing hilariously inappropriately. Trying to decrease number of pills pt has to take to see if this can help with adherence. Still has no insight. 04/14 pt is calm, mostly pleasant in behavior. He continues to respond to internal stimuli, mumbling to self. He refused depakote today. Limited insight and engagement in tx. -patient continues to refuse Depakote. He remains without insight into situation. Floor Coverings Salesperson reviewed literature and noted that some patients require higher than the traditional max dose of Zyprexa in order to treat anna and so business writer increased Zyprexa p.r.n. to b.i.d., for refusal of either Depakote or Zyprexa; also increased standing dose of Zyprexa to 30 mg. -although patient has been refusing Depakote, he has not reverted back to the former wild manic behaviors that he had prior to starting Depakote; perhaps the little amount of Depakote that he took broke some of the anna? To be determined -seems to want IM; for now will not give it for refusal of depakote, just for refusal of Zydis Floor Coverings Salesperson talked with Mother who reported a history of possible TBIs due to BMX biking. PLAN: Court ordered Civil commitment and substituted judgment took off 1:1 since less manic (previously 1:1 for intrusive and intimidating behaviors to female staff (in past, pt made verbal threats to staff and sexualized comments and attempted to grab a female staff member) MEDICATION PLAN: Medical consult ordered due to left foot ulceration - Depakote ER 1250mg daytime; (pt taking tab); initially seemed to be tamping down some manic symptoms -INCREASED Zyprexa/zydis 30mg qhs (helped with some psychotic symptoms but no anna) -Increased Zyprexa p.r.n. IM to 20 mg b.i.d. for refusal of either daytime Depakote or bedtime Zyprexa -IF REFUSES ZYPREXA PO or DEPAKOTE PO.... GIVE ZYPREXA IM -may continue to really offer Depakote throughout the day if initially refused; however only give Zyprexa IM for the 1st refusal... Not for subsequent ones -scheduled Seroquel 200mg at bedtime for continued insomnia -Seroquel 50mg TID for anxiety/agitation; (pt has tolerated Seroquel 100mg in past) -Cogentin 1mg PRN -if pt requires chemical restraint...can use Zyprexa IM....But NOT WITH IM BENZO . -Ativan 1mg prn for panic/anxiety (pt asks for this) -Discontinued Paliperidone (caused dystonia) -discontinued Abilify since not effective -discontinued Seroquel since overly sedating -dIScontinued ziprasidone as it has not seemed to help much ( maybe less m umbling to himself but he remains continually responding to internal stimuli) [facility] contacted (pt gave verbal permission to call and involve [facility] in his case) pt gave verbal permission to call and involve mother in his case DONNA MEDICATON: Seroquel: too sedating Zyprexa Fluphenazine Abilify: NOT effective Paliperidone/invega: dystonic reaction Risperdal Ziprasidone Depakote trazodone Medication hx: -Of note, discharge summary from 2018 reports that patient did well on Zyprexa 20 mg. -patient however reports that Zyprexa 'harmed him and he prefers Seroquel; -Mother reports patient did well on Invega Sustenna; pt c/o erectile dysfunction on this med but mother reports this was complaint before pt on meds. -Dystonic reaction to paliperidon Regarding zypexa with benzo's: [employer] states Concomitant use: Concurrent use of parenteral benzodiazepine and IM olanzapine is not recommended; if considered, monitor for excessive sedation and cardiorespiratory depression (Product Information: ZYPREXA(R) oral tablets, intramuscular injection, olanzapine oral tablets, intramuscular injection. [employer], [place], [place], 2010) Collateral information obtained on 03/16 Floor Coverings Salesperson spoke with patient's mother Ko Arguello ([phone]).? Floor Coverings Salesperson did not give her any information at all about her son but listened to her concerns (mother had called at least once before, wanting to share information).? Patient's mother expressed extreme concern.? She said that for months he has been deteriorating but that it has gotten much worse the past 2 weeks.? She said for a couple months patient was talking about people trying to harm him and poison him with food; subsequently his mom says he has not been eating very much and has lost significant weight.? She says he had cameras connected at his apartment to proved people were coming in an out in order to harm him.? He also started talking about they were attacking him with gnosticist and hearing a voice to tell him to commit suicide and hurt other people however he said he knew better, meaning that it's not right to do so.? Mother said that his symptoms worsened over the past 2 weeks and he once was wandering the streets all night, coming home dirty; people in the community were noticing significant difference as patient is known and well liked in his neighborhood; ? She said he has become very paranoid repeating that people are trying to poison him and week prior to this admission, he threw out all the food in his refrigerator.? Mother said he was in distress, constantly saying people were attacking him through gnosticist and trying to murder him in his sleep and threw food.? He also specifically identified his neighbor, who recently moved into the building, was attacking him with gnosticist and told his mom ?I need to get rid of him...? I need to kick his ass since I know he is trying to kill me... She reports other times patient was unable to maintain a conversation, as he would stop to talk to himself.? His mother explained the incident that led to his admission to [facility] (where he only spent about 3 days, and was admitted to this hospital about 3 days after discharge) saying that he was at his friend's house, [place], locked himself in the bathroom and was screaming all night long, until 06:00 that people were trying to kill him, that he will let them kill him, praying to God to keep people from killing him and baking for it to stop.? When he came out of the bathroom he went to various pictures on the wall and started yelling at them.? Reportedly angel raza was fearful for his own safety and called crisis/911.? Soon after, she reports locked himself in his grandparents basement for 3 days, refusing to eat, talking to himself constantly, screaming and also making his grandfather fearful for both his and patients safety.? Patient's mother says that in the past he was on Invega and was doing great able to have normal, fluid conversations, in his right mind, outgoing, socially appropriate and his normal self.? She says he complained of getting erectile dysfunction from the medication and did not want to take it, however she reports he was complaining of erectile dysfunction months before he was ever on any medication.? Patient's [facility]D worker also holds this perspective. 03/20/21: Continue current plan of care. 03/28/2021: No changes to primary team treatment plan Greater than 50% of the session was spent on counseling and/or coordination of care Reason for contiued inpatient stay Substantial Risk for: inability to function
[2021-04-15 18:00] VITALS: RESP 16
[2021-04-15] MEDS: QUEtiapine Fumarate 200 MG TABLET PO (19:20)
[2021-04-15] MEDS: OLANZapine ODT 10 MG TAB.RAPDIS 30 MG TRANSLINGU (19:20)
--- NOTE | 2021-04-16 13:34 | P.PNPSI_ITS ---
Subjective Subjective Date of Service: 04/16/21 Reason For Visit: Psychosis Interim History: Patient resting in bed. He opens his eyes briefly to look at greeting card writer and then closes them again. He says that he is ok but tired... and says ?it's the weekend ?meeting there is little to do other than sleep. Patient continues to say he will not take Depakote with the pills away they are. But he says he is feeling more calm. Mental Status Exam Mental Status Exam Narrative: Alert to self, place, but only minimally to situation; behavior is calm; can be intermittently disorganized and he remains internally stimulated and making inappropriate unwanted sexualized comments to staff; less intrusive but remains so;mood is OK affect constricted;? eye contact more avoidant;? Speech normal rate, volume and prosody; no?psychomotor agitation; thought process is more goal oriented and linear; Thought content?on medication/discharge;? he Denies AVH, however he remains internally preoccupied and talking to and answering himself; he denies any SI/HI.? Patients insight and judgment are impaired improvement Diagnostics Vital Signs (24Hr): Vital Signs - 24 hr 04/15/21 18:00 Respiratory Rate 16 Body Mass Index 21.3 Labs Results: 04/12/21 11:46 04/12/21 11:46 Imaging Radiology Impressions: ITS Impressions Elbow X-Ray 03/30/21 10:25 IMPRESSION: Small joint effusion. No fracture seen. If there is a history of trauma and clinical suspicion of fracture, follow-up x-ray in one week would be recommended. Medications Medications Current Medications Acetaminophen (Acetaminophen 325 Mg Tablet) 650 mg PO Q6H PRN PRN Reason: Headache/Pain Mild Scale (1-3) Last Admin: 03/29/21 12:36 Dose: 650 mg Documented by: Al Hydroxide/Mg Hydroxide (Magnesium Hydrox/Alum Hydrox 30 Ml Oral.Susp) 30 ml PO Q6H PRN PRN Reason: Heartburn/Nausea Divalproex Sodium (Divalproex Sodium Sprinkles 125 Mg Nathaniel.) 1,000 mg PO DAILY EUGENIA Magnesium Hydroxide (Milk Of Magnesia 30 Ml Oral.Susp) 30 ml PO DAILY PRN PRN Reason: Constipation Nicotine Polacrilex (Nicotine Polacrilex 2 Mg Gum) 2 mg BUCCAL Q1H PRN PRN Reason: Nicotine Cravings Last Admin: 04/15/21 23:47 Dose: 2 mg Documented by: Olanzapine (Olanzapine Odt 10 Mg Tab.Rapdis) 10 mg TRANSLINGU TID PRN PRN Reason: agitation Last Admin: 04/07/21 23:53 Dose: 10 mg Documented by: Olanzapine (Olanzapine Odt 10 Mg Tab.Rapdis) 30 mg TRANSLINGU BEDTIME EUGENIA Last Admin: 04/15/21 19:20 Dose: 30 mg Documented by: Olanzapine (Olanzapine 10 Mg Vial) 20 mg IM BID PRN PRN Reason: IF REFUSES PO or..agitation Omeprazole (Omeprazole 20 Mg Capsule.Dr) 20 mg PO DAILY PRN PRN Reason: GERD Quetiapine Fumarate (Quetiapine Fumarate 200 Mg Tablet) 200 mg PO BEDTIME EUGENIA Last Admin: 04/15/21 19:20 Dose: 200 mg Documented by: Allergies Allergies Allergy/AdvReac Type Severity Reaction Status Date / Time diphenhydramine Allergy Unknown unknown Verified 10/12/20 04:33 [From BENADRYL] haloperidol [From HALDOL] Allergy Unknown unknown Verified 10/12/20 04:33 paliperidone AdvReac Severe dystonia Verified 03/30/21 23:47 Assessment & Plan Assessment & Plan (1) Schizoaffective disorder: Qualifiers: Schizoaffective disorder type: bipolar Qualified Code(s): F25.0 - Schizoaffective disorder, bipolar type Status: Acute Code(s): F25.9 - Schizoaffective disorder, unspecified Assessment and Plan: IMPRESSION: Jose is a 25 y.o. male who carries a diagnosis of schizoaffective disorder who presents after his grandparents called the ambulance out of concern for patient's disorganized behavior.? On 02/24/2021 patient presented to [facility] ED disorganized and ED note reads: 25 yo male with hx of anxiety, review of records show schizoaffective disorder, EMS was called today due to the patient kneeling outside, being jittery, acting off, no SI statements made, EMS notes the patient was just staring off...ROS unable to be obtained due to patient not really answering questions... Patient was discharged from the ED.? reportedly he went to his friend's house, was again acting bizarrely, kneeling in the center of the room with his shirt off, talking in a disorganized way to the point where his friend became scared, called 911 or crisis and patient was admitted to [facility].? He was only there for a few days, [facility] was not contacted any was discharged without follow-up in place.? He then showed up at his grandparent's house, locked himself in their basement and was reportedly crying, not eating, not sleeping and talking, laughing to himself, saying people are telling him to commit suicide and crying, saying that aliens are coming.? Grandparents called for ambulance and patient was taken to [facility].? It was reported that on arrival to the emergency room he laid down on the bathroom floor. HOSPITAL COURSE: Patient initially presents as overall calm but has no insight, denies any of the past reported behaviors and repeatedly asks for discharge.? Patient does not want medications saying he does not need.? Patient remains on Section 12 B. He asked greeting card writer to call [facility] staff since they know him well. Of note, pt has hx of agitation, aggression and last time at [place] [id number], broke through locked fire exit by kicking in door and eloped -refusing medications -[facility]D worker John who knows him well believes that patient is ?getting worse? and decompensating.? As paranoid, persecutory delusions that hospital staff is trying to poison him.? Patient has other paranoid, persecutory delusions that h is neighbor is attacking him with taoist and has asked for help to get rid of him; also patient believes his for mother, family, friend are lying about him which has resulted in hospitalization.? -[facility] case management rn agrees with civil commitment -Patient is on a Section 12. This is patient's 3rd presentation to a hospital in less than 2 weeks, and reportedly people in the community have been recently scared of him. He has seem to be CAH and Patient is reported to have made suicidal comments saying people are telling me to commit suicide. He has paranoid, persecutory delusions and is without any insight at all, refusing medications.? Patient has made threatening comments to staff while on the unit and sexualized and intimidating comments/behavior toward a specific female staff, requiring pt to be on 1;1 Patient also has history of making verbal threats and being extremely agitative and destructive of property.? At this time, team agrees that patient is at risk for harm to self or others and requires inpatient admission and medication for his and others safety.? Team will move forward with petition the court for civil commitment and substituted judgment. -Patient being titrated on Seroquel; he says he does not like this dose since it makes him tired during the day, though he has been seen in the milieu interacting pleasantly and not looking sedated. He wants medication lowered oanh k to 50 mg and cannot understand that this dose is too low to treat psychotic symptoms. Automotive Service Management Teacher offered to change medication that will be sedating but patient refuse -03/22 patient reports Seroquel is too sedating; he cannot accept or understand reasons for medication or increased dose of Seroquel as he remains without insight into his psychotic disorder. Will continue with Seroquel since that was his request and see if his body adapts and no longer feel sedated; however if he remains excessively tired, we will likely have to switch to another antipsychotic medication trial Switch to Paliperidone/Invega 03/25/21 -on 03/25 patient remains tired which he says is from Seroquel. Patient symptoms have not resolved at all despite Seroquel being titrated to almost 400 mg. Susan miller that patient is intermittently sedated, and does not want to continue with Seroquel at this dose, will switch medication to Paliperidone which is on his Foley order and his mother reports was very effective in the past. Automotive Service Management Teacher considered starting ziprasidone instead given that patient complained of erectile dysfunction on Paliperidone/Invega; however both his mother and case management rn reported that his complaints of erectile dysfunction started prior to ever being on Paliperidone/Invega. Because this has been shown effective in the past, it seems that it is patient's best interest to have symptoms resolved as soon as possible, rather than endure another trial of a medication that might not work. Automotive Service Management Teacher has attempted several times to discuss this potential medication change however patient has not been organized enough to tolerate discussion. Once patient is again stable and organized, he can always discussing med change with his outpatient provider. 03/29/21 pt less irritable; remians disorganized. Seems to have dystonic reaction which seems to have improved with cogentin. Labs ordered and NMS ruled out. 03/30/21 will discontinue Paliperidone as it caused dystonia; starting and titrating Abilify; remains manic/psychotic 04/02/21: Will continue med regimen per primary team, IM zyprexa 10 mg was utilized on evening of 04/01/21 due to combative and disruptive unsafe behaviors. Staff report positive benefit on olanzapine. 04/03/21: Discussed benefit on olanzapine with primary psychiatrist. Will discontinue abilify 20 mg due to lack of effect on disorganized and bizarre/ unsafe behavior, start zydis 10 mg QHS. Reviewed risks and benefits with Sally tao. Ordered wound consult due to ulcer on L foot. 04/04 Abilify proved ineffective; patient started on Zyprexa which seems to be helping 04/05: Seemed at Zyprexa was helping however patient is now on Zyprexa 20 mg and remains floridly psychotic and manic. Patient is only 25 years old and greeting card writer would very much like to find a monotherapy treatment for this patient; however options are becoming limited. If patient does not make any improvement soon, will switch to Geodon; otherwise Prolixin remains last option for monotherapy (due to Foley), and considering that patient had dystonic reaction to Paliperidone, greeting card writer would prefer to avoid another medium to high potency antipsychotic. 04/06 started Ziprasidone 20mg BID, titrated to 40mg BID; medication had no effect. Automotive Service Management Teacher wanted to continue titrating this medication however patient remains floridly manic, is destroying property, threatening staff On both his Zyprexa and ziprasidone he was mumbling to himself less, however he was still continually responding to internal stimuli. Unfortunately monotherapy does not seem to be working andDue to his disorganized, agitated and intermittently threatening behavior will start Depakote on 04/08 04/08 Depakote started; has been taking; seems a little less manic will switch to PM dosing to see if can alleviate daytime tiredness -Will continue Zyprexa for now, it is unclear if it is partially helpful or not all ( maybe less mumbling to himself but he remains continually responding to internal stimuli) -IF Depakote is helpful may just see if patient can do okay on Depakote and S eroquel which did reduce anna but at higher doses over sedated him. 04/11-04/13 patient with some minimal improvement, a little more calm and organized, with more organized speech. He was taking Depakote which likely helped with improvement. however, he has recently been refusing again and continues to be distracted by internal dialogue, talking to and answering to himself; laughing hilariously inappropriately. Trying to decrease number of pills pt has to take to see if this can help with adherence. Still has no insight. 04/14 pt is calm, mostly pleasant in behavior. He continues to respond to internal stimuli, mumbling to self. He refused depakote today. Limited insight and engagement in tx. -patient continues to refuse Depakote. He remains without insight into situation. Automotive Service Management Teacher reviewed literature and noted that some patients require higher than the traditional max dose of Zyprexa in order to treat anna and so greeting card writer increased Zyprexa p.r.n. to b.i.d., for refusal of either Depakote or Zyprexa; also increased standing dose of Zyprexa to 30 mg. -although patient has been refusing Depakote, he has not reverted back to the former wild manic behaviors that he had prior to starting Depakote; perhaps the little amount of Depakote that he took broke some of the anna? To be det ermined 04/16 patient says he would take Depakote except that the pills are too big; greeting card writer agrees to switch patient's Depakote to Sprinkles to see if this will be tolerated or if patient will continue to refuse this medication. -seems to want IM; for now will not give it for refusal of depakote, just for refusal of Zydis Automotive Service Management Teacher talked with Mother who reported a history of possible TBIs due to BMX biking. PLAN: Court ordered Civil commitment and substituted judgment took off 1:1 since less manic (previously 1:1 for intrusive and intimidating behaviors to female staff (in past, pt made verbal threats to staff and sexualized comments and attempted to grab a female staff member) MEDICATION PLAN: Medical consult ordered due to left foot ulceration - CHANGE TO Depakote Sprinkles to see if this will help with adherence; initially seemed to be tamping down some manic symptoms -INCREASED Zyprexa/zydis 30mg qhs (helped with some psychotic symptoms but no anna) -Increased Zyprexa p.r.n. IM to 20 mg b.i.d. for refusal of either daytime Depakote or bedtime Zyprexa -IF REFUSES ZYPREXA PO or DEPAKOTE PO.... GIVE ZYPREXA IM -may continue to really offer Depakote throughout the day if initially refused; however only give Zyprexa IM for the 1st refusal... Not for subsequent ones -scheduled Seroquel 200mg at bedtime for continued insomnia -Seroquel 50mg TID for anxiety/agitation; (pt has tolerated Seroquel 100mg in past) -Cogentin 1mg PRN -if pt requires chemical restraint...can use Zyprexa IM....But NOT WITH IM BENZO . -Ativan 1mg prn for panic/anxiety (pt asks for this) -Discontinued Paliperidone (caused dystonia) -discontinued Abilify since not effective -discontinued Seroquel since overly sedating -dIScontinued ziprasidone as it has not seemed to help much ( maybe less mumbling to himself but he remains continually responding to internal stimuli) [facility] contacted (pt gave verbal permission to call and involve [facility] in his case) pt gave verbal permission to call and involve mother in his case DONNA MEDICATON: Seroquel: too sedating Zyprexa Fluphenazine Abilify: NOT effective Paliperidone/invega: dystonic reaction Risperdal Ziprasidone Depakote trazodone Medication hx: -Of note, discharge summary from 2018 reports that patient did well on Zyprexa 20 mg. -patient however reports that Zyprexa 'harmed him and he prefers Seroquel; -Mother reports patient did well on Invega Sustenna; pt c/o erectile dysfunction on this med but mother reports this was complaint before pt on meds. -Dystonic reaction to paliperidon Regarding zypexa with benzo's: [employer] states Concomitant use: Concurrent use of parenteral benzodiazepine and IM olanzapine is not recommended; if considered, monitor for excessive sedation and cardiorespiratory depression (Product Information: ZYPREXA(R) oral tablets, intramuscular injection, olanzapine oral tablets, intramuscular injection. [employer], [place], [place], 2010) Collateral information obtained on 03/16 Automotive Service Management Teacher spoke with patient's mother Ko Arguello ([phone]).? Automotive Service Management Teacher did not give her any information at all about her son but listened to her concerns (mother had called at least once before, wanting to share information).? Patient's mother expressed extreme concern.? She said that for months he has been deteriorating but that it has gotten much worse the past 2 weeks.? She said for a couple months patient was talking about people trying to harm him and poison him with food; subsequently his mom says he has not been eating very much and has lost significant weight.? She says he had cameras connected at his apartment to proved people were coming in an out in order to harm him.? He also started talking about they were attacking him with taoist and hearing a voice to tell him to commit suicide and hurt other people however he said he knew better, meaning that it's not right to do so.? Mother said that his symptoms worsened over the past 2 weeks and he once was wandering the streets all night, coming home dirty; people in the community were noticing significant difference as patient is known and well liked in his neighborhood; ? She said he has become very paranoid repeating that people are trying to poison him and week prior to this admission, he threw out all the food in his refrigerator.? Mother said he was in distress, constantly saying people were attacking him through taoist and trying to murder him in his sleep and threw food.? He also specifically identified his neighbor, who recently moved into the building, was attacking him with taoist and told his mom ?I need to get rid of him...? I need to kick his ass since I know he is trying to kill me... She reports other times patient was unable to maintain a conversation, as he would stop to talk to himself.? His mother explained the incident that led to his admission to [facility] (where he only spent about 3 days, and was admitted to this hospital about 3 days after discharge) saying that he was at his friend's house, [place], locked himself in the bathroom and was screaming all night long, until 06:00 that people were trying to kill him, that he will let them kill him, praying to God to keep people from killing him and baking for it to stop.? When he came out of the bathroom he went to various pictures on the wall and started yelling at them.? Reportedly psi wrists was fearful for his own safety and called crisis/911.? Soon after, she reports locked himself in his grandparents basement for 3 days, refusing to eat, talking to himself constantly, screaming and also making his grandfather fearful for both his and patients safety.? Patient's mother says that in the past he was on Invega and was doing great able to have normal, fluid conversations, in his right mind, outgoing, socially appropriate and his normal self.? She says he complained of getting erectile dysfunction from the medication and did not want to take it, however she reports he was complaining of erectile dysfunction months before he was ever on any medication.? Patient's [facility] worker also holds this perspective. 03/20/21: Continue current plan of care. 03/28/2021: No changes to primary team treatment plan Greater than 50% of the session was spent on counseling and/or coordination of care Reason for contiued inpatient stay Substantial Risk for: inability to function and rapid decompensation
[2021-04-16] MEDS: OLANZapine 10 MG VIAL 20 MG IM (14:38)
[2021-04-16] MEDS: Nicotine Polacrilex 2 MG GUM BUCCAL ×2 (15:20→22:25)
[2021-04-16 18:00] VITALS: RESP 14
[2021-04-16] MEDS: OLANZapine ODT 10 MG TAB.RAPDIS 30 MG TRANSLINGU (22:15)
[2021-04-16] MEDS: QUEtiapine Fumarate 200 MG TABLET PO (22:16)
[2021-04-17] MEDS: Nicotine Polacrilex 2 MG GUM BUCCAL ×3 (00:44→22:40)
[2021-04-17] MEDS: OLANZapine 10 MG VIAL 20 MG IM (13:58)
[2021-04-17] MEDS: OLANZapine ODT 10 MG TAB.RAPDIS 30 MG TRANSLINGU (21:05)
[2021-04-17] MEDS: QUEtiapine Fumarate 200 MG TABLET PO (21:06)
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
[2021-04-18] MEDS: Nicotine Polacrilex 2 MG GUM BUCCAL ×2 (00:22→19:16)
--- NOTE | 2021-04-18 15:18 | P.PNPSI_ITS ---
Subjective Subjective Date of Service: 04/18/21 Reason For Visit: Psychosis Interim History: Pt remains w/ poor insight; refusing depakote; internally preoccupied but manic symptoms seem to have subsided. Mental Status Exam Mental Status Exam Narrative: ?Alert to self, place, but only minimally to situation; behavior is calm; can be intermittently disorganized and he remains internally stimulated; sometimes making inappropriate unwanted sexualized comments to staff but recently less so; less intrusive but remains so;mood/ affect? constricted;? eye contact generally minimal;? Speech normal rate, volume and prosody; no?psychomotor agitation; thought process is more goal oriented and linear; Thought content?on medication/discharge;? he Denies AVH, however he remains internally preoccupied and talking to and answering himself; he denies any SI/HI.? Patients insight and judgment are impaired. Diagnostics Vital Signs (24Hr): Body Mass Index 21.3 Labs Results: 04/12/21 11:46 04/12/21 11:46 Imaging Radiology Impressions: ITS Impressions Elbow X-Ray 03/30/21 10:25 IMPRESSION: Small joint effusion. No fracture seen. If there is a history of trauma and clinical suspicion of fracture, follow-up x-ray in one week would be recommended. Medications Medications Current Medications Acetaminophen (Acetaminophen 325 Mg Tablet) 650 mg PO Q6H PRN PRN Reason: Headache/Pain Mild Scale (1-3) Last Admin: 03/29/21 12:36 Dose: 650 mg Documented by: Al Hydroxide/Mg Hydroxide (Magnesium Hydrox/Alum Hydrox 30 Ml Oral.Susp) 30 ml PO Q6H PRN PRN Reason: Heartburn/Nausea Divalproex Sodium (Divalproex Sodium Sprinkles 125 Mg Nathaniel.) 1,000 mg PO DAILY@1700 EUGENIA Magnesium Hydroxide (Milk Of Magnesia 30 Ml Oral.Susp) 30 ml PO DAILY PRN PRN Reason: Constipation Nicotine Polacrilex (Nicotine Polacrilex 2 Mg Gum) 2 mg BUCCAL Q1H PRN PRN Reason: Nicotine Cravings Last Admin: 04/18/21 00:22 Dose: 2 mg Documented by: Olanzapine (Olanzapine Odt 10 Mg Tab.Rapdis) 10 mg TRANSLINGU TID PRN PRN Reason: agitation Last Admin: 04/07/21 23:53 Dose: 10 mg Documented by: Olanzapine (Olanzapine Odt 10 Mg Tab.Rapdis) 30 mg TRANSLINGU BEDTIME EUGENIA Last Admin: 04/17/21 21:05 Dose: 30 mg Documented by: Olanzapine (Olanzapine 10 Mg Vial) 20 mg IM BID PRN PRN Reason: IF REFUSES PO or..agitation Last Admin: 04/17/21 13:58 Dose: 20 mg Documented by: Omeprazole (Omeprazole 20 Mg Capsule.Dr) 20 mg PO DAILY PRN PRN Reason: GERD Quetiapine Fumarate (Quetiapine Fumarate 200 Mg Tablet) 200 mg PO BEDTIME EUGENIA Last Admin: 04/17/21 21:06 Dose: 200 mg Documented by: Allergies Allergies Allergy/AdvReac Type Severity Reaction Status Date / Time diphenhydramine Allergy Unknown unknown Verified 10/12/20 04:33 [From BENADRYL] haloperidol [From HALDOL] Allergy Unknown unknown Verified 10/12/20 04:33 paliperidone AdvReac Severe dystonia Verified 03/30/21 23:47 Assessment & Plan Assessment & Plan (1) Schizoaffective disorder: Qualifiers: Schizoaffective disorder type: bipolar Qualified Code(s): F25.0 - Schizoaffective disorder, bipolar type Status: Acute Code(s): F25.9 - Schizoaffective disorder, unspecified Assessment and Plan: IMPRESSION: Jose is a 25 y.o. male who carries a diagnosis of schizoaffective disorder who presents after his grandparents called the ambulance out of concern for junior connor's disorganized behavior.? On 02/24/2021 patient presented to [facility] ED disorganized and ED note reads: 25 yo male with hx of anxiety, review of records show schizoaffective disorder, EMS was called today due to the patient kneeling outside, being jittery, acting off, no SI statements made, EMS notes the patient was just staring off...ROS unable to be obtained due to patient not really answering questions... Patient was discharged from the ED.? reportedly he went to his friend's house, was again acting bizarrely, kneeling in the center of the room with his shirt off, talking in a disorganized way to the point where his friend became scared, called 911 or crisis and patient was admitted to [facility].? He was only there for a few days, [facility]D was not contacted any was discharged without follow-up in place.? He then showed up at his grandparent's house, locked himself in their basement and was reportedly crying, not eating, not sleeping and talking, laughing to himself, saying people are telling him to commit suicide and crying, saying that aliens are coming.? Grandparents called for ambulance and patient was taken to [facility].? It was reported that on a rrival to the emergency room he laid down on the bathroom floor. HOSPITAL COURSE: Patient initially presents as overall calm but has no insight, denies any of the past reported behaviors and repeatedly asks for discharge.? Patient does not want medications saying he does not need.? Patient remains on Section 12 B. He asked publications writer to call [facility] staff since they know him well. Of note, pt has hx of a gitation, aggression and last time at [place] [id number], broke through locked fire exit by kicking in door and eloped -refusing medications -CHD worker John who knows him well believes that patient is ?getting worse? and decompensating.? As paranoid, persecutory delusions that hospital staff is trying to poison him.? Patient has other paranoid, persecutory delusions that his neighbor is attacking him with sikhism and has asked for help to get rid of him; also patient believes his for mother, family, friend are lying about him which has resulted in hospitalization.? -[facility] sample case porter agrees with civil commitment -Patient is on a Section 12. This is patient's 3rd presentation to a hospital in less than 2 weeks, and reportedly people in the community have been recently scared of him. He has seem to be CAH and Patient is reported to have made suicidal comments saying people are telling me to commit suicide. He has paranoid, persecutory delusions and is without any insight at all, refusing medications.? Patient has made threatening comments to staff while on the unit and sexualized and intimidating comments/behavior toward a specific female staff, requiring pt to be on 1;1 Patient also has history of making verbal threats and being extremely agitative and destructive of property.? At this t jason, team agrees that patient is at risk for harm to self or others and requires inpatient admission and medication for his and others safety.? Team will move forward with petition the court for civil commitment and substituted judgment. -Patient being titrated on Seroquel; he says he does not like this dose since it makes him tired during the day, though he has been seen in the milieu interacting pleasantly and not looking sedated. He wants medication lowered back to 50 mg and cannot understand that this dose is too low to treat psychotic symptoms. It Risk Advisor offered to change medication that will be sedating but patient refuse -03/22 patient reports Seroquel is too sedating; he cannot accept or understand reasons for medication or increased dose of Seroquel as he remains without insight into his psychotic disorder. Will continue with Seroquel since that was his request and see if his body adapts and no longer feel sedated; however if he remains excessively tired, we will likely have to switch to another antipsychotic medication trial Switch to Paliperidone/Invega 03/25/21 -on 03/25 patient remains tired which he says is from Seroquel. Patient symptoms have not resolved at all despite Seroquel being titrated to almost 400 mg. Given that patient is intermittently sedated, and does not want to continue with Seroquel at this dose, will switch medication to Paliperidone which is on his Foley order and his mother reports was very effective in the past. It Risk Advisor considered starting ziprasidone instead given that patient complained of erectile dysfunction on Paliperidone/Invega; however both his mother and sample case porter reported that his complaints of erectile dysfunction started prior to ever being on Paliperidone/Invega. Because this has been shown effective in the past, it seems that it is patient's best interest to have symptoms resolved as soon as possible, rather than endure another trial of a medication that might not work. It Risk Advisor has attempted several times to discuss this potential medication change however patient has not been organized enough to tolerate discussion. Once patient is again stable and organized, he can always discussing med change with his outpatient provider. 03/29/21 pt less irritable; remians disorganized. Seems to have dystonic reaction which seems to have improved with cogentin. Labs ordered and NMS ruled out. 03/30/21 will discontinue Paliperidone as it caused dystonia; starting and titra ting Abilify; remains manic/psychotic 04/02/21: Will continue med regimen per primary team, IM zyprexa 10 mg was utilized on evening of 04/01/21 due to combative and disruptive unsafe behaviors. Staff report positive benefit on olanzapine. 04/03/21: Discussed benefit on olanzapine with primary psychiatrist. Will discontinue abilify 20 mg due to lack of effect on disorganized and bizarre/ unsafe behavior, start zydis 10 mg QHS. Reviewed risks and benefits with Jose. Ordered wound consult due to ulcer on L foot. 04/04 Abilify proved ineffective; patient started on Zyprexa which seems to be h elping 04/05: Seemed at Zyprexa was helping however patient is now on Zyprexa 20 mg and remains floridly psychotic and manic. Patient is only 25 years old and publications writer would very much like to find a monotherapy treatment for this patient; however options are becoming limited. If patient does not make any improvement soon, will switch to Geodon; otherwise Prolixin remains last option for monotherapy (due to Foley), and considering that patient had dystonic reaction to Paliperidone, publications writer would prefer to avoid another medium to high potency antipsychotic. 04/06 started Ziprasidone 20mg BID, titrated to 40mg BID; medication had no effect. It Risk Advisor wanted to continue titrating this medication however patient remains floridly manic, is destroying property, threatening staff On both his Zyprexa and ziprasidone he was mumbling to himself less, however he was still continually responding to internal stimuli. Unfortunately monotherapy does not seem to be working andDue to his disorganized, agitated and intermittently threatening behavior will start Depakote on 04/08 04/08 Depakote started; has been taking; seems a little less manic will switch to PM dosing to see if can alleviate daytime tiredness -Will continue Zyprexa for now, it is unclear if it is partially helpful or not all ( maybe less mumbling to himself but he remains continually responding to internal stimuli) -IF Depakote is helpful may just see if patient can do okay on Depakote and Seroquel which did reduce susie but at higher doses over sedated him. 04/11-04/13 patient with some minimal improvement, a little more calm and organized, with more organized speech. He was taking Depakote which likely helped with improvement. however, he has recently been refusing again and continues to be distracted by internal dialogue, talking to and answering to himself; laughing hilariously inappropriately. Trying to decrease number of pills pt has to take to see if this can help with adherence. Still has no insight. 04/14 pt is calm, mostly pleasant in behavior. He continues to respond to inte rnal stimuli, mumbling to self. He refused depakote today. Limited insight and engagement in tx. -patient continues to refuse Depakote. He remains without insight into situation. It Risk Advisor reviewed literature and noted that some patients require higher than the traditional max dose of Zyprexa in order to treat susie and so publications writer increased Zyprexa p.r.n. to b.i.d., for refusal of either Depakote or Zyprexa; also increased standing dose of Zyprexa to 30 mg. -although patient has been refusing Depakote, he has not reverted back to the former wild manic behaviors that he had prior to starting Depakote; perhaps the little amount of Depakote that he took broke some of the susie? To be determine d 04/16 patient says he would take Depakote except that the pills are too big; publications writer agrees to switch patient's Depakote to Sprinkles to see if this will be tolerated or if patient will continue to refuse this medication. However, pt continues to refuse Depakote -due to refusing depakote and increased bedtime zyprexa, pt is getting about Zyprexa 40-50mg which literature reports can be helpful in refractory cases. While he's still internally preoccupied and w/out insight, his Susie seems to have subsided. It Risk Advisor talked with Mother who reported a history of possible TBIs due to BMX biking. regarding Zyprexa, experts suggest some patients may require doses up to 50 mg/day for optimal response (ASHOKT [Keri 2018]; Ignacia 2009; Uzma 2019). PLAN: Court ordered Civil commitment and substituted judgment took off 1:1 since less manic (previously 1:1 for intrusive and intimidating behaviors to female staff (in past, pt made verbal threats to staff and sexualized comments and attempted to grab a female staff member) MEDICATION PLAN: Medical consult ordered due to left foot ulceration - CHANGE TO Depakote Sprinkles to see if this will help with adherence but pt continues to refuses. - initially seemed to be tamping down some manic symptoms -INCREASED Zyprexa/zydis 30mg qhs (helped with some psychotic symptoms but no susie) -Increased Zyprexa p.r.n. IM to 20 mg b.i.d. for refusal of either daytime Depakote or bedtime Zyprexa -IF REFUSES ZYPREXA PO or DEPAKOTE PO.... GIVE ZYPREXA IM -may continue to really offer Depakote throughout the day if initially refused; however only give Zyprexa IM for the 1st refusal... Not for subsequent ones -scheduled Seroquel 200mg at bedtime for continued insomnia -Seroquel 50mg TID for anxiety/agitation; (pt has tolerated Seroquel 100mg in past) -Cogentin 1mg PRN -if pt requires chemical restraint...can use Zyprexa IM....But NOT WITH IM BENZO . -Ativan 1mg prn for panic/anxiety (pt asks for this) -Discontinued Paliperidone (caused dystonia) -discontinued Abilify since not effective -discontinued Seroquel since overly sedating -dIScontinued ziprasidone as it has not seemed to help much ( maybe less m umbling to himself but he remains continually responding to internal stimuli) [facility] contacted (pt gave verbal permission to call and involve [facility] in his case) pt gave verbal permission to call and involve mother in his case DONNA MEDICATON: Seroquel: too sedating Zyprexa Fluphenazine Abilify: NOT effective Paliperidone/invega: dystonic reaction Risperdal Ziprasidone Depakote trazodone Medication hx: -Of note, discharge summary from 2018 reports that patient did well on Zyprexa 20 mg. -patient however reports that Zyprexa 'harmed him and he prefers Seroquel; -Mother reports patient did well on Invega Sustenna; pt c/o erectile dysfunction on this med but mother reports this was complaint before pt on meds. -Dystonic reaction to paliperidon Regarding zypexa with benzo's: [employer] states Concomitant use: Concurrent use of parenteral benzodiazepine and IM olanzapine is not recommended; if considered, monitor for excessive sedation and cardiorespiratory depression (Product Information: ZYPREXA(R) oral tablets, intramuscular injection, olanzapine oral tablets, intramuscular injection. [employer], [place], [place], 2009) Collateral information obtained on 03/16 It Risk Advisor spoke with patient's mother Ko Arguello ([phone]).? It Risk Advisor did not give her any information at all about her son but listened to her concerns (mother had called at least once before, wanting to share information).? Patient's mother expressed extreme concern.? She said that for months he has been deteriorating but that it has gotten much worse the past 2 weeks.? She said for a couple months patient was talking about people trying to harm him and poison him with food; subsequently his mom says he has not been eating very much and has lost significant weight.? She says he had cameras connected at his apartment to proved people were coming in an out in order to harm him.? He also started talking about they were attacking him with sikhism and hearing a voice to tell him to commit suicide and hurt other people however he said he knew better, meaning that it's not right to do so.? Mother said that his symptoms worsened over the past 2 weeks and he once was wandering the streets all night, coming home dirty; people in the community were noticing significant difference as patient is known and well liked in his neighborhood; ? She said he has become very paranoid repeating that people are trying to poison him and week prior to this admission, he threw out all the food in his refrigerator.? Mother said he was in distress, constantly saying people were attacking him through sikhism and trying to murder him in his sleep and threw food.? He also specifically identified his neighbor, who recently moved into the building, was attacking him with sikhism and told his mom ?I need to get rid of him...? I need to kick his ass since I know he is trying to kill me... She reports other times patient was unable to maintain a conversation, as he would stop to talk to himself.? His mother explained the incident that led to his admission to [facility] (where he only spent about 3 days, and was admitted to this hospital about 3 days after discharge) saying that he was at his friend's house, [place], locked himself in the bathroom and was screaming all night long, until 06:00 that people were trying to kill him, that he will let them kill him, praying to God to keep people from killing him and baking for it to stop.? When he came out of the bathroom he went to various pictures on the wall and started yelling at them.? Reportedly angel raza was fearful for his own safety and called crisis/911.? Soon after, she reports locked himself in his grandparents basement for 3 days, refusing to eat, talking to himself constantly, screaming and also making his grandfather fearful for both his and patients safety.? Patient's mother says that in the past he was on Invega and was doing great able to have normal, fluid conversations, in his right mind, outgoing, socially appropriate and his normal self.? She says he complained of getting erectile dysfunction from the medication and did not want to take it, however she reports he was complaining of erectile dysfunction months before he was ever on any medication.? Patient's [facility]D worker also holds this perspective. 03/20/21: Continue current plan of care. 03/28/2021: No changes to primary team treatment plan Greater than 50% of the session was spent on counseling and/or coordination of care Reason for contiued inpatient stay Substantial Risk for: rapid decompensation
[2021-04-18 18:00] VITALS: BP 126/80; PULSE 86
[2021-04-18] MEDS: OLANZapine ODT 10 MG TAB.RAPDIS 20 MG TRANSLINGU (23:30)
[2021-04-19] MEDS: Nicotine Polacrilex 2 MG GUM BUCCAL ×4 (11:55→21:30)
[2021-04-19] MEDS: OLANZapine 10 MG VIAL 20 MG IM ×2 (17:44→20:20)
--- NOTE | 2021-04-19 17:52 | P.PNPSI_ITS ---
Subjective Subjective Date of Service: 04/19/21 Reason For Visit: Psychosis Interim History: pt seen on 04/19 pt able to sit calmly and be cooperative in interview room and discuss with treatment, first time this has been possible since admission. He says he's fantastic and feels ready for discharge. Commercial Insulator asked him if he remembers past behavior and pt agrees that he was out of control at times and disorganized, but feels he's better now. Pt says he likes the Zyprexa at current dose (which is about 40mg give or take with PRNs) and will continue taking it as an outpatient. He says he knows that he needs this med in order to stay stable and out of the hospital. He does not like the depakote howerver, saying he does not like how it makes him feel; he does not think he needs it. Pt denies SI or HI. He also denies any AVH. He also denies that he ever talks to himself despite chief writer saying that many people do and that chief writer and staff have witnessed him. To this he just said flatly that he doesn't. Pt said chief writer could call his mother; he said he'd go to respite but prefers to just go home to apartment. pt and chief writer talked about smart phones for a bit and the discussion was an appropriate, linear, normal conversation. Mental Status Exam Mental Status Exam Narrative: Alert to self, place, and mostly to situation; behavior is calm and cooperative; he remains internally stimulated and talking to himself; has not been making inappropriate sexualized comments to staff but recently less so; no longer intrusive but can still be exceedingly silly at times, laughing to himself so;mood/ affect? constricted;? eye contact adequate;? Speech normal rate, volume and prosody; no?psychomotor agitation; thought process is more goal oriented and linear; Thought content?on medication/discharge;? he Denies AVH, however he remains internally preoccupied; he denies any SI/HI.? Patients insight and judgment are impaired but have improved. Diagnostics Vital Signs (24Hr): Vital Signs - 24 hr 04/18/21 18:00 Pulse Rate 86 Blood Pressure 126/80 Body Mass Index 21.3 Labs Results: 04/12/21 11:46 04/12/21 11:46 Imaging Radiology Impressions: ITS Impressions Elbow X-Ray 03/30/21 10:25 IMPRESSION: Small joint effusion. No fracture seen. If there is a history of trauma and clinical suspicion of fracture, follow-up x-ray in one week would be recommended. Medications Medications Current Medications Acetaminophen (Acetaminophen 325 Mg Tablet) 650 mg PO Q6H PRN PRN Reason: Headache/Pain Mild Scale (1-3) Last Admin: 03/29/21 12:36 Dose: 650 mg Documented by: Al Hydroxide/Mg Hydroxide (Magnesium Hydrox/Alum Hydrox 30 Ml Oral.Susp) 30 ml PO Q6H PRN PRN Reason: Heartburn/Nausea Divalproex Sodium (Divalproex Sodium Sprinkles 125 Mg Nathaniel.) 1,000 mg PO DAILY@1700 EUGENIA Last Admin: 04/19/21 17:43 Dose: Not Given Documented by: Magnesium Hydroxide (Milk Of Magnesia 30 Ml Oral.Susp) 30 ml PO DAILY PRN PRN Reason: Constipation Nicotine Polacrilex (Nicotine Polacrilex 2 Mg Gum) 2 mg BUCCAL Q1H PRN PRN Reason: Nicotine Cravings Last Admin: 04/19/21 15:30 Dose: 2 mg Documented by: Olanzapine (Olanzapine Odt 10 Mg Tab.Rapdis) 10 mg TRANSLINGU TID PRN PRN Reason: agitation Last Admin: 04/07/21 23:53 Dose: 10 mg Documented by: Olanzapine (Olanzapine Odt 10 Mg Tab.Rapdis) 30 mg TRANSLINGU BEDTIME EUGENIA Last Admin: 04/18/21 23:30 Dose: Not Given Documented by: Olanzapine (Olanzapine 10 Mg Vial) 20 mg IM BID PRN PRN Reason: IF REFUSES PO or..agitation Last Admin: 04/17/21 13:58 Dose: 20 mg Documented by: Omeprazole (Omeprazole 20 Mg Capsule.) 20 mg PO DAILY PRN PRN Reason: GERD Quetiapine Fumarate (Quetiapine Fumarate 200 Mg Tablet) 200 mg PO BEDTIME [facility] Last Admin: 04/18/21 23:30 Dose: Not Given Documented by: Allergies Allergies Allergy/AdvReac Type Severity Reaction Status Date / Time diphenhydramine Allergy Unknown unknown Verified 10/12/20 04:33 [From BENADRYL] haloperidol [From HALDOL] Allergy Unknown unknown Verified 10/12/20 04:33 paliperidone AdvReac Severe dystonia Verified 03/30/21 23:47 Assessment & Plan Assessment & Plan (1) Schizoaffective disorder: Qualifiers: Schizoaffective disorder type: bipolar Qualified Code(s): F25.0 - Schizoaffective disorder, bipolar type Status: Acute Code(s): F25.9 - Schizoaffective disorder, unspecified Assessment and Plan: IMPRESSION: Jose is a 25 y.o. male who carries a diagnosis of schizoaffective disorder who presents after his grandparents called the ambulance out of concern for patient's disorganized behavior.? On 02/24/2021 patient presented to [facility] ED disorganized and ED note reads: 25 yo male with hx of anxiety, review of records show schizoaffective disorder, EMS was called today due to the patient kneeling outside, being jittery, acting off, no SI statements made, EMS notes the patient was just staring off...ROS unable to be obtained due to patient not really answering questions... Patient was discharged from the ED.? reportedly he went to his friend's house, was again acting bizarrely, kneeling in the center of the room with his shirt off, talking in a disorganized way to the point where his friend became scared, called 911 or crisis and patient was admitted to [facility].? He was only there for a few days, [facility] was not contacted any was discharged without follow-up in place.? He then showed up at his grandparent's house, locked himself in their basement and was reportedly crying, not eating, not sleeping a nd talking, laughing to himself, saying people are telling him to commit suicide and crying, saying that aliens are coming.? Grandparents called for ambulance and patient was taken to [facility].? It was reported that on arrival to the emergency room he laid down on the bathroom floor. HOSPITAL COURSE: Patient initially presents as overall calm but has no insight, denies any of the past reported behaviors and repeatedly asks for discharge.? Patient does not want medications saying he does not need.? Patient remains on Section 12 B. He asked chief writer to call [facility] staff since they know him well. Of note, pt has hx of agitation, aggression and last time at [place] [facility], broke through locked fire exit by kicking in door and eloped -refusing medications -[facility]D worker John who knows him well believes that patient is ?getting worse? and decompensating.? As paranoid, persecutory delusions that hospital staff is trying to poison him.? Patient has other paranoid, persecutory delusions that his neighbor is attacking him with sabianist and has asked for help to get rid of him; also patient believes his for mother, family, friend are lying about him which has resulted in hospitalization.? -[facility] case loader operator agrees with civil commitment -Patient is on a Section 12. This is patient's 3rd presentation to a hospital in less than 2 weeks, and reportedly people in the community have been recently sca red of him. He has seem to be CAH and Patient is reported to have made suicidal comments saying people are telling me to commit suicide. He has paranoid, persecutory delusions and is without any insight at all, refusing medications.? Patient has made threatening comments to staff while on the unit and sexualized and intimidating comments/behavior toward a specific female staff, requiring pt to be on 1;1 Patient also has history of making verbal threats and being extremely agitative and destructive of property.? At this time, team agrees that patient is at risk for harm to self or others and requires inpatient admission and medication for his and others safety.? Team will move forward with petition the court for civil commitment and substituted judgment. -Patient being titrated on Seroquel; he says he does not like this dose since it makes him tired during the day, though he has been seen in the milieu interacting pleasantly and not looking sedated. He wants medication lowered back to 50 mg and cannot understand that this dose is too low to treat psychotic symptoms. Commercial Insulator offered to change medication that will be sedating but patient refuse -03/22 patient reports Seroquel is too sedating; he cannot accept or understand reasons for medication or increased dose of Seroquel as he remains without insight into his psychotic disorder. Will continue with Seroquel since that was his request and see if his body adapts and no longer feel sedated; however if he remains excessively tired, we will likely have to switch to another antipsychotic medication trial Switch to Paliperidone/Invega 03/25/21 -on 03/25 patient remains tired which he says is from Seroquel. Patient symptoms have not resolved at all despite Seroquel being titrated to almost 400 mg. Give n that patient is intermittently sedated, and does not want to continue with Seroquel at this dose, will switch medication to Paliperidone which is on his Thompson order and his mother reports was very effective in the past. Commercial Insulator considered starting ziprasidone instead given that patient complained of erectile dysfunction on Paliperidone/Invega; however both his mother and case loader operator reported that his complaints of erectile dysfunction started prior to ever being on Paliperidone/Invega. Because this has been shown effective in the past, it seems that it is patient's best interest to have symptoms resolved as soon as possible, rather than endure another trial of a medication that might not work. Commercial Insulator has attempted several times to discuss this potential medication change however patient has not been organized enough to tolerate discussion. Once patient is again stable and organized, he can always discussing med change with his outpatient provider. 03/29/21 pt less irritable; remians disorganized. Seems to have dystonic reaction which seems to have improved with cogentin. Labs ordered and NMS ruled out. 03/30/21 will discontinue Paliperidone as it caused dystonia; starting and titrating Abilify; remains manic/psychotic 04/02/21: Will continue med regimen per primary team, IM zyprexa 10 mg was utilized on evening of 04/01/21 due to combative and disruptive unsafe behaviors. Staff report positive benefit on olanzapine. 04/03/21: Discussed benefit on olanzapine with primary psychiatrist. Will discontinue abilify 20 mg due to lack of effect on disorganized and bizarre/ unsafe behavior, start zydis 10 mg QHS. Reviewed risks and benefits with Jose. Ordered wound consult due to ulcer on L foot. 04/04 Abilify proved ineffective; patient started on Zyprexa which seems to be helping 04/05: Seemed at Zyprexa was helping however patient is now on Zyprexa 20 mg and remains floridly psychotic and manic. Patient is only 25 years old and chief writer would very much like to find a monotherapy treatment for this patient; however options are becoming limited. If patient does not make any improvement soon, will switch to Geodon; otherwise Prolixin remains last option for monotherapy (due to Thompson), and considering that patient had dystonic reaction to Paliperidone, chief writer would prefer to avoid another medium to high potency antipsychotic. 04/06 started Ziprasidone 20mg BID, titrated to 40mg BID; medication had no effect. Commercial Insulator wanted to continue titrating this medication however patient remains floridly manic, is destroying property, threatening staff On both his Zyprexa and ziprasidone he was mumbling to himself less, however he was still continually responding to internal stimuli. Unfortunately monotherapy does not seem to be working andDue to his disorganized, agitated and intermittently threatening behavior will start Depakote on 04/08 04/08 Depakote started; has been taking; seems a little less manic will switch to PM dosing to see if can alleviate daytime tiredness -Will continue Zyprexa for now, it is unclear if it is partially helpful or not all ( maybe less mumbling to himself but he remains continually responding to internal stimuli) -IF Depakote is helpful may just see if patient can do okay on Depakote and Seroquel which did reduce anna but at higher doses over sedated him. 04/11-04/13 patient with some minimal improvement, a little more calm and organized, with more organized speech. He was taking Depakote which likely helped with improvement. however, he has recently been refusing again and continues to be distracted by internal dialogue, talking to and answering to himself; laughing hilariously inappropriately. Trying to decrease number of pills pt has to take to see if this can help with adherence. Still has no insight. 04/14 pt is calm, mostly pleasant in behavior. He continues to respond to internal stimuli, mumbling to self. He refused depakote today. Limited insight and engagement in tx. -patient continues to refuse Depakote. He remains without insight into si tuation. Commercial Insulator reviewed literature and noted that some patients require higher than the traditional max dose of Zyprexa in order to treat anna and so chief writer increased Zyprexa p.r.n. to b.i.d., for refusal of either Depakote or Zyprexa; also increased standing dose of Zyprexa to 30 mg. -although patient has been refusing Depakote, he has not reverted back to the former wild manic behaviors that he had prior to starting Depakote; perhaps the little amount of Depakote that he took broke some of the anna? To be determined 04/16 patient says he would take Depakote except that the pills are too big; chief writer agrees to switch patient's Depakote to Sprinkles to see if this will be tolerated or if patient will continue to refuse this medication. However, pt continues to refuse Depakote -due to refusing depakote and increased bedtime zyprexa, pt is getting about Zyprexa 40-50mg which literature reports can be helpful in refractory cases. While he's still internally preoccupied and w/out insight, his Anna seems to have subsided. 04/19 Pt continues to refuse depakote; since there is no way to ensure compliance and pt just keeps getting zyprexa IM, will dc zyprexa and increase standing dose to 40mg which has been helpful. -pt is able to remain calm, cooperative and organized in discussion with chief writer regarding treatment; he says he likes the zyprexa and will keep taking it, but no the depakote. He says he knows he needs to continue w/ zyprexa as an outpatient, and intends to do so. Although pt is still internally preoccupied he is mostly able to keep his behaviors under control and is not intrusive or destructive, sleeping through the night and no longer inappropriate with female (or male) staff (or peers). He is eating well. Anna has resolved and Patient is organized enough to modify his behaviors in order to present a certain way; however, Commercial Insulator suspects that he still lacks insight and will likely stop taking meds at some point post discharged. Commercial Insulator talked with Mother who reported a history of possible TBIs due to BMX biking. PLAN: Court ordered Civil commitment and substituted judgment took off 1:1 since less manic; no longer intrusive and intimidating behaviors to female staff) MEDICATION PLAN: - CHANGE TO Depakote Sprinkles to see if this will help with adherence but pt continues to refuses. - initially seemed to be tamping down some manic symptoms -INCREASED Zyprexa/zydis 40mg qhs (anna resolved; refusing depakote but at this dose pt has improved) -regarding Zyprexa, experts suggest some patients may require doses up to 50 mg/day for optimal response (MICHAEL [[place] 2018]; Ignacia 2009; Uzma 2019). -Increased Zyprexa p.r.n. IM to 40 mg daily. for refusal of bedtime Zyprexa -IF REFUSES ZYPREXA PO.... GIVE ZYPREXA IM -scheduled Seroquel 200mg at bedtime for continued insomnia -Seroquel 50mg TID for anxiety/agitation; -Cogentin 1mg PRN -chief writer examined left foot ulceration which is healing well -if pt requires chemical restraint...can use Zyprexa IM....But NOT WITH IM BENZO . -Ativan 1mg prn for panic/anxiety (pt asks for this) -Discontinued Paliperidone (caused dystonia) -discontinued Abilify since not effective -discontinued Seroquel since overly sedating -dIScontinued ziprasidone as it has not seemed to help much ( maybe less mumbling to himself but he remains continually responding to internal stimuli) [facility] contacted (pt gave verbal permission to call and involve [facility] in his case) pt gave verbal permission to call and involve mother in his case [facility]: Seroquel: too sedating Zyprexa Fluphenazine Abilify: NOT effective Paliperidone/invega: dystonic reaction Risperdal Ziprasidone Depakote trazodone Medication hx: -Of note, discharge summary from 2018 reports that patient did well on Zyprexa 20 mg. -patient however reports that Zyprexa 'harmed him and he prefers Seroquel; -Mother reports patient did well on Invega Sustenna; pt c/o erectile dysfunction on this med but mother reports this was complaint before pt on meds. -Dystonic reaction to paliperidon Regarding zypexa with benzo's: [employer] states Concomitant use: Concurrent use of parenteral benzodiazepine and IM olanzapine is not recommended; if considered, monitor for excessive sedation and cardiorespiratory depression (Product Information: ZYPREXA(R) oral tablets, intramuscular injection, olanzapine oral tablets, intramuscular injection. [employer], [place], [place], 2010) Collateral information obtained on 03/16 Commercial Insulator spoke with patient's mother Ko Arguello ([phone]).? Commercial Insulator did not give her any information at all about her son but listened to her concerns (mother had called at least once before, wanting to share information).? Patient's mother expressed extreme concern.? She said that for months he has been deteriorating but that it has gotten much worse the past 2 weeks.? She said for a couple months patient was talking about people trying to harm him and poison him with food; subsequently his mom says he has not been eating very much and has lost significant weight.? She says he had cameras connected at his apartment to proved people were coming in an out in order to harm him.? He also started talking about they were attacking him with sabianist and hearing a voice to tell him to commit suicide and hurt other people however he said he knew better, meaning that it's not right to do so.? Mother said that his symptoms worsened over the past 2 weeks and he once was wandering the streets all night, coming home dirty; people in the community were noticing significant difference as patient is known and well liked in his neighborhood; ? She said he has become very paranoid repeating that people are trying to poison him and week prior to this admission, he threw out all the food in his refrigerator.? Mother said he was in distress, constantly saying people were attacking him through sabianist and trying to murder him in his sleep and threw food.? He also specifically identified his neighbor, who recently moved into the building, was attacking him with sabianist and told his mom ?I need to get rid of him...? I need to kick his ass since I know he is trying to kill me... She reports other times patient was unable to maintain a conversation, as he would stop to talk to himself.? His mo ther explained the incident that led to his admission to [facility] (where he only spent about 3 days, and was admitted to this hospital about 3 days after discharge) saying that he was at his friend's house, [place], locked himself in the bathroom and was screaming all night long, until 06:00 that people were trying to kill him, that he will let them kill him, praying to God to keep people from killing him and baking for it to stop.? When he came out of the bathroom he went to various pictures on the wall and started yelling at them.? Reportedly angel raza was fearful for his own safety and called crisis/911.? Soon after, she reports locked himself in his grandparents basement for 3 days, refusing to eat, talking to himself constantly, screaming and also making his grandfather fearful for both his and patients safety.? Patient's mother says that in the past he was on Invega and was doing great able to have normal, fluid conversations, in his right mind, outgoing, socially appropriate and his normal self.? She says he complained of getting erectile dysfunction from the medication and did not want to take it, however she reports he was complaining of erectile dysfunction months before he was ever on any medication.? Patient's [facility]D worker also holds this perspective. 03/20/21: Continue current plan of care. 03/28/2021: No changes to primary team treatment plan Greater than 50% of the session was spent on counseling and/or coordination of care Reason for contiued inpatient stay Substantial Risk for: med/psych decompensation
[2021-04-19] MEDS: QUEtiapine Fumarate 200 MG TABLET PO (20:03)
[2021-04-20] MEDS: Nicotine Polacrilex 2 MG GUM BUCCAL ×2 (12:16→14:16)
--- NOTE | 2021-04-20 15:56 | P.PNPSI_ITS ---
Subjective Subjective Date of Service: 04/20/21 Reason For Visit: Psychosis Interim History: Patient remains in behavior control, calm, keeping more to his self. He remains internally preoccupied and talking to himself however no manic symptoms and he is not intrusive. Patient refused Zyprexa last night and told investment underwriter that he simply prefers the IM version since it works faster. Card Stripper explained that as an outpatient this will not be available and so patient agreed to continue taking the p.o. version. Mental Status Exam Mental Status Exam Narrative: ?Alert to self, place, and mostly to situation; behavior is calm and cooperative; he remains internally stimulated and talking to himself; has not been making inappropriate sexualized comments to staff but recently less so; no longer intrusive but can still be exceedingly silly at times, laughing to himself so;mood/ affect? constricted;? eye contact adequate;? Speech normal rate, volume and prosody; no?psychomotor agitation; thought process is more goal oriented and linear; Thought content?on medication/discharge;? he Denies AVH, however he remains internally preoccupied; he denies any SI/HI.? Patients insight and judgment are impaired but have improved. Diagnostics Vital Signs (24Hr): Body Mass Index 21.3 Labs Results: 04/12/21 11:46 04/12/21 11:46 Imaging Radiology Impressions: ITS Impressions Elbow X-Ray 03/30/21 10:25 IMPRESSION: Small joint effusion. No fracture seen. If there is a history of trauma and clinical suspicion of fracture, follow-up x-ray in one week would be recommended. Medications Medications Current Medications Acetaminophen (Acetaminophen 325 Mg Tablet) 650 mg PO Q6H PRN PRN Reason: Headache/Pain Mild Scale (1-3) Last Admin: 03/29/21 12:36 Dose: 650 mg Documented by: Al Hydroxide/Mg Hydroxide (Magnesium Hydrox/Alum Hydrox 30 Ml Oral.Susp) 30 ml PO Q6H PRN PRN Reason: Heartburn/Nausea Magnesium Hydroxide (Milk Of Magnesia 30 Ml Oral.Susp) 30 ml PO DAILY PRN PRN Reason: Constipation Nicotine Polacrilex (Nicotine Polacrilex 2 Mg Gum) 2 mg BUCCAL Q1H PRN PRN Reason: Nicotine Cravings Last Admin: 04/20/21 14:16 Dose: 2 mg Documented by: Olanzapine (Olanzapine Odt 10 Mg Tab.Rapdis) 10 mg TRANSLINGU TID PRN PRN Reason: agitation Last Admin: 04/07/21 23:53 Dose: 10 mg Documented by: Olanzapine (Olanzapine Odt 10 Mg Tab.Rapdis) 40 mg TRANSLINGU BEDTIME EUGENIA Last Admin: 04/19/21 20:02 Dose: Not Given Documented by: Olanzapine (Olanzapine 10 Mg Vial) 40 mg IM DAILY PRN PRN Reason: IF REFUSES PO or..agitation Omeprazole (Omeprazole 20 Mg Capsule.Dr) 20 mg PO DAILY PRN PRN Reason: GERD Quetiapine Fumarate (Quetiapine Fumarate 200 Mg Tablet) 200 mg PO BEDTIME EUGENIA Last Admin: 04/19/21 20:03 Dose: 200 mg Documented by: Allergies Allergies Allergy/AdvReac Type Severity Reaction Status Date / Time diphenhydramine Allergy Unknown unknown Verified 10/12/20 04:33 [From BENADRYL] haloperidol [From HALDOL] Allergy Unknown unknown Verified 10/12/20 04:33 paliperidone AdvReac Severe dystonia Verified 03/30/21 23:47 Assessment & Plan Assessment & Plan (1) Schizoaffective disorder: Qualifiers: Schizoaffective disorder type: bipolar Qualified Code(s): F25.0 - Schizoaffective disorder, bipolar type Status: Acute Code(s): F25.9 - Schizoaffective disorder, unspecified Assessment and Plan: IMPRESSION: Jose is a 25 y.o. male who carries a diagnosis of schizoaffective disorder who presents after his grandparents called the ambulance out of concern for patient's disorganized behavior.? On 02/24/[address] [facility] ED disorganized and ED note reads: 25 yo male with hx of anxiety, review of records show schizoaffective disorder, EMS was called today due to the patient kneeling outside, being jittery, acting off, no SI statements made, EMS notes the patient was just staring off...ROS unable to be obtained due to patient not really answering questions... Patient was discharged from the ED.? reportedly he went to his friend's house, was again acting bizarrely, kneeling in the center of the room with his shirt off, talking in a disorganized way to the point where his friend became scared, called 911 or crisis and patient was admitted to [facility].? He was only there for a few days, [facility] was not contacted any was discharged without follow-up in place.? He then showed up at his grandparent's house, locked himself in their basement and was reportedly crying, not eating, not sleeping and talking, laughing to himself, saying people are telling him to commit suicide and crying, saying that aliens are coming.? Grandparents called for ambulance and patient was taken to [facility].? It was reported that on arrival to the emergency room he laid down on the bathroom floor. HOSPITAL COURSE: Patient initially presents as overall calm but has no insight, denies any of the past reported behaviors and repeatedly asks for discharge.? Patient does not want medications saying he does not need.? Patient remains on Section 12 B. He asked investment underwriter to call [facility] staff since they know him well. Of note, pt has hx of agitation, aggression and last time at [place] [id number], broke through locked fire exit by kicking in door and eloped -refusing medications -[facility] worker John who knows him well believes that patient is ?getting worse? and decompensating.? As paranoid, persecutory delusions that hospital staff is trying to poison him.? Patient has other paranoid, persecutory delusions that his neighbor is attacking him with judaism and has asked for help to get rid of him; also patient believes his for mother, family, friend are lying about him which has resulted in hospitalization.? -[facility] showcase trimmer agrees with civil commitment -Patient is on a Section 12. This is patient's 3rd presentation to a hospital in less than 2 weeks, and reportedly people in the community have been recently scared of him. He has seem to be CAH and Patient is reported to have made suicidal comments saying people are telling me to commit suicide. He has paranoid, persecutory delusions and is without any insight at all, refusing medications.? Patient has made threatening comments to staff while on the unit and sexualized and intimidating comments/behavior toward a specific female staff, requiring pt to be on 1;1 Patient also has history of making verbal threats and being extremely agitative and destructive of property.? At this time, team agrees that patient is at risk for harm to self or others and requires inpatient admission and medication for his and others safety.? Team will move forward with petition the court for civil commitment and substituted judgment. -Patient being titrated on Seroquel; he says he does not like this dose since it makes him tired during the day, though he has been seen in the milieu interacting pleasantly and not looking sedated. He wants medication lowered back to 50 mg and cannot understand that this dose is too low to treat psychotic symptoms. Card Stripper offered to change medication that will be sedating but patient refuse -03/22 patient reports Seroquel is too sedating; he cannot accept or understand reasons for medication or increased dose of Seroquel as he remains without insight into his psychotic disorder. Will continue with Seroquel since that was his request and see if his body adapts and no longer feel sedated; however if he remains excessively tired, we will likely have to switch to another antipsychotic medication trial Switch to Paliperidone/Invega 03/25/21 -on 03/25 patient remains tired which he says is from Seroquel. Patient symptoms have not resolved at all despite Seroquel being titrated to almost 400 mg. Given that patient is intermittently sedated, and does not want to continue with Seroquel at this dose, will switch medication to Paliperidone which is on his Foley order and his mother reports was very effective in the past. Card Stripper considered starting ziprasidone instead given that patient complained of erectile dysfunction on Paliperidone/Invega; however both his mother and showcase trimmer reported that his complaints of erectile dysfunction started prior to ever being on Paliperidone/Invega. Because this has been shown effective in the past, it seems that it is patient's best interest to have symptoms resolved as soon as possible, rather than endure another trial of a medication that might not work. Card Stripper has attempted several times to discuss this potential medication change however patient has not been organized enough to tolerate discussion. Once patient is again stable and organized, he can always discussing med change with his outpatient provider. 03/29/21 pt less irritable; remians disorganized. Seems to have dystonic reaction which seems to have improved with cogentin. Labs ordered and NMS ruled out. 03/30/21 will discontinue Paliperidone as it caused dystonia; starting and titrating Abilify; remains manic/psychotic 04/02/21: Will continue med regimen per primary team, IM zyprexa 10 mg was utilized on evening of 04/01/21 due to combative and disruptive unsafe behaviors. Staff report positive benefit on olanzapine. 04/03/21: Discussed benefit on olanzapine with primary psychiatrist. Will discontinue abilify 20 mg due to lack of effect on disorganized and bizarre/ unsafe behavior, start zydis 10 mg QHS. Reviewed risks and benefits with Jose. Ordered wound consult due to ulcer on L foot. 04/04 Abilify proved ineffective; patient started on Zyprexa which seems to be helping 04/05: Seemed at Zyprexa was helping however patient is now on Zyprexa 20 mg and remains floridly psychotic and manic. Patient is only 25 years old and investment underwriter would very much like to find a monotherapy treatment for this patient; however options are becoming limited. If patient does not make any improvement soon, will switch to Geodon; otherwise Prolixin remains last option for monotherapy (due to Foley), and considering that patient had dystonic reaction to Paliperidone, investment underwriter would prefer to avoid another medium to high potency antipsychotic. 04/06 started Ziprasidone 20mg BID, titrated to 40mg BID; medication had no effect. Card Stripper wanted to continue titrating this medication however patient remains floridly manic, is destroying property, threatening staff On both his Zyprexa and ziprasidone he was mumbling to himself less, however he was still continually responding to internal stimuli. Unfortunately monotherapy does not seem to be working andDue to his disorganized, agitated and intermittently threatening behavior will start Depakote on 04/08 04/08 Depakote started; has been taking; seems a little less manic will switch to PM dosing to see if can alleviate daytime tiredness -Will continue Zyprexa for now, it is unclear if it is partially helpful or not all ( maybe less mumbling to himself but he remains continually responding to internal stimuli) -IF Depakote is helpful may just see if patient can do okay on Depakote and Seroquel which did reduce anna but at higher doses over sedated him. 04/11-04/13 patient with some minimal improvement, a little more calm and o rganized, with more organized speech. He was taking Depakote which likely helped with improvement. however, he has recently been refusing again and continues to be distracted by internal dialogue, talking to and answering to himself; laughing hilariously inappropriately. Trying to decrease number of pills pt has to take to see if this can help with adherence. Still has no insight. 04/14 pt is calm, mostly pleasant in behavior. He continues to respond to internal stimuli, mumbling to self. He refused depakote today. Limited insight and engagement in tx. -patient continues to refuse Depakote. He remains without insight into situation. Card Stripper reviewed literature and noted that some patients require higher than the traditional max dose of Zyprexa in order to treat anna and so investment underwriter increased Zyprexa p.r.n. to b.i.d., for refusal of either Depakote or Zyprexa; also increased standing dose of Zyprexa to 30 mg. -although patient has been refusing Depakote, he has not reverted back to the former wild manic behaviors that he had prior to starting Depakote; perhaps the little amount of Depakote that he took broke some of the anna? To be determined 04/16 patient says he would take Depakote except that the pills are too big; investment underwriter agrees to switch patient's Depakote to Sprinkles to see if this will be tolerated or if patient will continue to refuse this medication. However, pt con tinues to refuse Depakote -due to refusing depakote and increased bedtime zyprexa, pt is getting about Zyprexa 40-50mg which literature reports can be helpful in refractory cases. While he's still internally preoccupied and w/out insight, his Anna seems to have subsided. 04/19 Pt continues to refuse depakote; since there is no way to ensure compliance and pt just keeps getting zyprexa IM, will dc zyprexa and increase standing dose to 40mg which has been helpful. -pt is able to remain calm, cooperative and organized in discussion with investment underwriter regarding treatment; he says he likes the zyprexa and will keep taking it, but no the depakote. He says he knows he needs to continue w/ zyprexa as an outpatient, and intends to do so. Although pt is still internally preoccupied he is mostly able to keep his behaviors under control and is not intrusive or destructive, sleeping through the night and no longer inappropriate with female (or male) staff (or peers). He is eating well. Anna has resolved and Patient is organized enough to modify his behaviors in order to present a certain way; however, Card Stripper suspects that he still lacks insight and will likely stop taking meds at some point post discharged. Card Stripper talked with Mother who reported a history of possible TBIs due to BMX biking. PLAN: Court ordered Civil commitment and substituted judgment took off 1:1 since less manic; no longer intrusive and intimidating behaviors to female staff) MEDICATION PLAN: - CHANGE TO Depakote Sprinkles to see if this will help with adherence but pt continues to refuses. - initially seemed to be tamping down some manic symptoms -INCREASED Zyprexa/zydis 40mg qhs (anna resolved; refusing depakote but at this dose pt has improved) -regarding Zyprexa, experts suggest some patients may require doses up to 50 mg/day for optimal response (CANMAT [Yatham 2018]; Ignacia 2009; Uzma 2019). -Increased Zyprexa p.r.n. IM to 40 mg daily. for refusal of bedtime Zyprexa -IF REFUSES ZYPREXA PO.... GIVE ZYPREXA IM -scheduled Seroquel 200mg at bedtime for continued insomnia -Seroquel 50mg TID for anxiety/agitation; -Cogentin 1mg PRN -investment underwriter examined left foot ulceration which is healing well -if pt requires chemical restraint...can use Zyprexa IM....But NOT WITH IM BENZO . -Ativan 1mg prn for panic/anxiety (pt asks for this) -Discontinued Paliperidone (caused dystonia) -discontinued Abilify since not effective -discontinued Seroquel since overly sedating -dIScontinued ziprasidone as it has not seemed to help much ( maybe less mumbling to himself but he remains continually responding to internal stimuli) [facility] contacted (pt gave verbal permission to call and involve [facility] in his case) pt gave verbal permission to call and involve mother in his case DONNA MEDICATON: Seroquel: too sedating Zyprexa Fluphenazine Abilify: NOT effective Paliperidone/invega: dystonic reaction Risperdal Ziprasidone Depakote trazodone Medication hx: -Of note, discharge summary from 2018 reports that patient did well on Zyprexa 20 mg. -patient however reports that Zyprexa 'harmed him and he prefers Seroquel; -Mother reports patient did well on Invega Sustenna; pt c/o erectile dysfunction on this med but mother reports this was complaint before pt on meds. -Dystonic reaction to paliperidon Regarding zypexa with benzo's: [employer] states Concomitant use: Concurrent use of parenteral benzodiazepine and IM olanzapine is not recommended; if considered, monitor for excessive sedation and cardiorespiratory depression (Product Information: ZYPREXA(R) oral tablets, intramuscular injection, olanzapine oral tablets, intramuscular injection. [employer], [place], [place], 2009) Collateral information obtained on 03/16 Card Stripper spoke with patient's mother Ko Arguello ([phone]).? Card Stripper did not give her any information at all about her son but listened to her concerns (mother had called at least once before, wanting to share information).? Patient's mother expressed extreme concern.? She said that for months he has been deteriorating but that it has gotten much worse the past 2 weeks.? She said for a couple months patient was talking about people trying to harm him and po gloria him with food; subsequently his mom says he has not been eating very much and has lost significant weight.? She says he had cameras connected at his apartment to proved people were coming in an out in order to harm him.? He also started talking about they were attacking him with judaism and hearing a voice to tell him to commit suicide and hurt other people however he said he knew better, meaning that it's not right to do so.? Mother said that his symptoms worsened over the past 2 weeks and he once was wandering the streets all night, coming home dirty; people in the community were noticing significant difference as patient is known and well liked in his neighborhood; ? She said he has become very paranoid repeating that people are trying to poison him and week prior to this admission, he threw out all the food in his refrigerator.? Mother said he was in distress, constantly saying people were attacking him through judaism and trying to murder him in his sleep and threw food.? He also specifically identified his neighbor, who recently moved into the building, was attacking him with judaism and told his mom ?I need to get rid of him...? I need to kick his ass since I know he is trying to kill me... She reports other times patient was unable to maintain a conversation, as he would stop to talk to himself.? His mother explained the incident that led to his admission to [facility] (where he only spent about 3 days, and was admitted to this hospital about 3 days after discharge) saying that he was at his friend's house, [place], locked himself in the bathroom and was screaming all night long, until 06:00 that people were trying to kill him, that he will let them kill him, praying to God to keep people from killing him and baking for it to stop.? When he came out of the bath room he went to various pictures on the wall and started yelling at them.? Reportedly angel raza was fearful for his own safety and called crisis/911.? Soon after, she reports locked himself in his grandparents basement for 3 days, refusing to eat, talking to himself constantly, screaming and also making his grandfather fearful for both his and patients safety.? Patient's mother says that in the past he was on Invega and was doing great able to have normal, fluid conversations, in his right mind, outgoing, socially appropriate and his normal self.? She says he complained of getting erectile dysfunction from the medication and did not want to take it, however she reports he was complaining of erectile dysfunction months before he was ever on any medication.? Patient's [facility] worker also holds this perspective. 03/20/21: Continue current plan of care. 03/28/2021: No changes to primary team treatment plan Greater than 50% of the session was spent on counseling and/or coordination of care Reason for contiued inpatient stay Substantial Risk for: med/psych decompensation
[2021-04-20 18:00] VITALS: BP 125/73; PULSE 66
[2021-04-20] MEDS: OLANZapine ODT 10 MG TAB.RAPDIS 40 MG TRANSLINGU (23:19)
[2021-04-20] MEDS: QUEtiapine Fumarate 200 MG TABLET PO (23:19)
[2021-04-21] MEDS: Nicotine Polacrilex 2 MG GUM BUCCAL ×4 (13:37→20:38)
[2021-04-21 14:43] VITALS: BMI 22.1
[2021-04-21 16:46] VITALS: BP 134/66; PULSE 92; TEMP 37.1
[2021-04-21] MEDS: OLANZapine ODT 10 MG TAB.RAPDIS 40 MG TRANSLINGU (19:45)
[2021-04-21] MEDS: QUEtiapine Fumarate 200 MG TABLET PO (19:45)
--- NOTE | 2021-04-22 09:39 | P.PNPSI_ITS ---
Subjective Subjective Date of Service: 04/21/21 Reason For Visit: Psychosis Interim History: pt seen on 04/21 focused on discharge; remains in behavioral control but with limited insight. Mental Status Exam Mental Status Exam Narrative: Alert to self, place, and mostly to situation; behavior is calm and cooperative; he remains internally stimulated and talking to himself; has not been making inappropriate sexualized comments to staff but recently less so; no longer intrusive but can still be exceedingly silly at times, laughing to himself so;mood/ affect? constricted;? eye contact adequate;? Speech normal rate, volume and prosody; no?psychomotor agitation; thought process is more goal oriented and linear; Thought content?on medication/discharge;? he Denies AVH, however he remains internally preoccupied; he denies any SI/HI.? Patients insight and judgment are impaired but have improved. Diagnostics Vital Signs (24Hr): Vital Signs - 24 hr 04/21/21 16:46 Temperature 98.8 F Pulse Rate 92 Blood Pressure 134/66 Body Mass Index 22.1 Labs Results: 04/12/21 11:46 04/12/21 11:46 Imaging Radiology Impressions: ITS Impressions Elbow X-Ray 03/30/21 10:25 IMPRESSION: Small joint effusion. No fracture seen. If there is a history of trauma and clinical suspicion of fracture, follow-up x-ray in one week would be recommended. Medications Medications Current Medications Acetaminophen (Acetaminophen 325 Mg Tablet) 650 mg PO Q6H PRN PRN Reason: Headache/Pain Mild Scale (1-3) Last Admin: 03/29/21 12:36 Dose: 650 mg Documented by: Al Hydroxide/Mg Hydroxide (Magnesium Hydrox/Alum Hydrox 30 Ml Oral.Susp) 30 ml PO Q6H PRN PRN Reason: Heartburn/Nausea Magnesium Hydroxide (Milk Of Magnesia 30 Ml Oral.Susp) 30 ml PO DAILY PRN PRN Reason: Constipation Nicotine Polacrilex (Nicotine Polacrilex 2 Mg Gum) 2 mg BUCCAL Q1H PRN PRN Reason: Nicotine Cravings Last Admin: 04/21/21 20:38 Dose: 2 mg Documented by: Olanzapine (Olanzapine Odt 10 Mg Tab.Rapdis) 10 mg TRANSLINGU TID PRN PRN Reason: agitation Last Admin: 04/07/21 23:53 Dose: 10 mg Documented by: Olanzapine (Olanzapine Odt 10 Mg Tab.Rapdis) 40 mg TRANSLINGU BEDTIME [facility] Last Admin: 04/21/21 19:45 Dose: 40 mg Documented by: Olanzapine (Olanzapine 10 Mg Vial) 20 mg IM DAILY PRN PRN Reason: IF REFUSES PO or..agitation Omeprazole (Omeprazole 20 Mg Capsule.Dr) 20 mg PO DAILY PRN PRN Reason: GERD Quetiapine Fumarate (Quetiapine Fumarate 200 Mg Tablet) 200 mg PO BEDTIME [facility] Last Admin: 04/21/21 19:45 Dose: 200 mg Documented by: Allergies Allergies Allergy/AdvReac Type Severity Reaction Status Date / Time diphenhydramine Allergy Unknown unknown Verified 10/12/20 04:33 [From BENADRYL] haloperidol [From HALDOL] Allergy Unknown unknown Verified 10/12/20 04:33 paliperidone AdvReac Severe dystonia Verified 03/30/21 23:47 Assessment & Plan Assessment & Plan (1) Schizoaffective disorder: Qualifiers: Schizoaffective disorder type: bipolar Qualified Code(s): F25.0 - Schizoaffective disorder, bipolar type Status: Acute Code(s): F25.9 - Schizoaffective disorder, unspecified Assessment and Plan: IMPRESSION: Jose is a 25 y.o. male who carries a diagnosis of schizoaffective disorder who presents after his grandparents called the ambulance out of concern for patient's disorganized behavior.? On 02/24/[address] [facility] ED disorganized and ED note reads: 25 yo male with hx of anxiety, review of records show schizoaffective disorder, EMS was called today due to the patient kneeling outside, being jittery, acting off, no SI statements made, EMS notes the patient was just staring off...ROS unable to be obtained due to patient not really answering questions... Patient was discharged from the ED.? reportedly he went to his friend's house, was again acting bizarrely, kneeling in the center of the room with his shirt off, talking in a disorganized way to the point where his friend became scared, called 911 or crisis and patient was admitted to [facility].? He was only there for a few days, [facility] was not contacted any was discharged without follow-up in place.? He then showed up at his grandparent's house, locked himself in their basement and was reportedly crying, not eating, not sleeping and talking, laughing to himself, saying people are telling him to commit suicide and crying, saying that aliens are coming.? Grandparents called for ambulance and patient was taken to [facility].? It was reported that on arrival to the emergency room he laid down on the bathroom floor. HOSPITAL COURSE: Patient initially presents as overall calm but has no insight, denies any of the past reported behaviors and repeatedly asks for discharge.? Patient does not want medications saying he does not need.? Patient remains on Section 12 B. He asked handbook writer to call [facility] staff since they know him well. Of note, pt has hx of agitation, aggression and last time at [place] [id number], broke through locked fire exit by kicking in door and eloped -refusing medications -[facility] worker John who knows him well believes that patient is ?getting worse? and decompensating.? As paranoid, persecutory delusions that hospital staff is trying to poison him.? Patient has other paranoid, persecutory delusions that his neighbor is attacking him with islam and has asked for help to get rid of him; also patient believes his for mother, family, friend are lying about him which has resulted in hospitalization.? -[facility] immigration case manager agrees with civil commitment -Patient is on a Section 12. This is patient's 3rd presentation to a hospital in less than 2 weeks, and reportedly people in the community have been recently scared of him. He has seem to be CAH and Patient is reported to have made suicidal comments saying people are telling me to commit suicide. He has paranoid, persecutory delusions and is without any insight at all, refusing medications.? Patient has made threatening comments to staff while on the unit and sexualized and intimidating comments/behavior toward a specific female staff, requiring pt to be on 1;1 Patient also has history of making verbal threats and being extremely agitative and destructive of property.? At this time, team agrees that patient is at risk for harm to self or others and requires inpatient admission and medication for his and others safety.? Team will move forward with petition the court for civil commitment and substituted judgment. -Patient being titrated on Seroquel; he says he does not like this dose since it makes him tired during the day, though he has been seen in the milieu interacting pleasantly and not looking sedated. He wants medication lowered back to 50 mg and cannot understand that this dose is too low to treat psychotic symptoms. Home Staging Specialist offered to change medication that will be sedating but patient refuse -03/22 patient reports Seroquel is too sedating; he cannot accept or understand reasons for medication or increased dose of Seroquel as he remains without insight into his psychotic disorder. Will continue with Seroquel since that was his request and see if his body adapts and no longer feel sedated; however if he remains excessively tired, we will likely have to switch to another antipsychotic medication trial Switch to Paliperidone/Invega 03/25/21 -on 03/25 patient remains tired which he says is from Seroquel. Patient symptoms have not resolved at all despite Seroquel being titrated to almost 400 mg. Given that patient is intermittently sedated, and does not want to continue with Seroquel at this dose, will switch medication to Paliperidone which is on his Foley order and his mother reports was very effective in the past. Home Staging Specialist considered starting ziprasidone instead given that patient complained of erectile dysfunction on Paliperidone/Invega; however both his mother and immigration case manager reported that his complaints of erectile dysfunction started prior to ever being on Paliperidone/Invega. Because this has been shown effective in the past, it seems that it is patient's best interest to have symptoms resolved as soon as possible, rather than endure another trial of a medication that might not work. Home Staging Specialist has attempted several times to discuss this potential medication change however patient has not been organized enough to tolerate discussion. Once patient is again stable and organized, he can always discussing med change with his outpatient provider. 03/29/21 pt less irritable; remians disorganized. Seems to have dystonic reaction which seems to have improved with cogentin. Labs ordered and NMS ruled out. 03/30/21 will discontinue Paliperidone as it caused dystonia; starting and titrating Abilify; remains manic/psychotic 04/02/21: Will continue med regimen per primary team, IM zyprexa 10 mg was utilized on evening of 04/01/21 due to combative and disruptive unsafe behaviors. Staff report positive benefit on olanzapine. 04/03/21: Discussed benefit on olanzapine with primary psychiatrist. Will discontinue abilify 20 mg due to lack of effect on disorganized and bizarre/ unsafe behavior, start zydis 10 mg QHS. Reviewed risks and benefits with Jose. Ordered wound consult due to ulcer on L foot. 04/04 Abilify proved ineffective; patient started on Zyprexa which seems to be helping 04/05: Seemed at Zyprexa was helping however patient is now on Zyprexa 20 mg and remains floridly psychotic and manic. Patient is only 25 years old and handbook writer would very much like to find a monotherapy treatment for this patient; however options are becoming limited. If patient does not make any improvement soon, will switch to Geodon; otherwise Prolixin remains last option for monotherapy (due to Foley), and considering that patient had dystonic reaction to Paliperidone, handbook writer would prefer to avoid another medium to high potency antipsychotic. 04/06 started Ziprasidone 20mg BID, titrated to 40mg BID; medication had no effect. Home Staging Specialist wanted to continue titrating this medication however patient remains floridly manic, is destroying property, threatening staff On both his Zyprexa and ziprasidone he was mumbling to himself less, however he was still continually responding to internal stimuli. Unfortunately monotherapy does not seem to be working andDue to his disorganized, agitated and intermittently threatening behavior will start Depakote on 04/08 04/08 Depakote started; has been taking; seems a little less manic will switch to PM dosing to see if can alleviate daytime tiredness -Will continue Zyprexa for now, it is unclear if it is partially helpful or not all ( maybe less mumbling to himself but he remains continually responding to internal stimuli) -IF Depakote is helpful may just see if patient can do okay on Depakote and Seroquel which did reduce anna but at higher doses over sedated him. 04/11-04/13 patient with some minimal improvement, a little more calm and o rganized, with more organized speech. He was taking Depakote which likely helped with improvement. however, he has recently been refusing again and continues to be distracted by internal dialogue, talking to and answering to himself; laughing hilariously inappropriately. Trying to decrease number of pills pt has to take to see if this can help with adherence. Still has no insight. 04/14 pt is calm, mostly pleasant in behavior. He continues to respond to internal stimuli, mumbling to self. He refused depakote today. Limited insight and engagement in tx. -patient continues to refuse Depakote. He remains without insight into situation. Home Staging Specialist reviewed literature and noted that some patients require higher than the traditional max dose of Zyprexa in order to treat anna and so handbook writer increased Zyprexa p.r.n. to b.i.d., for refusal of either Depakote or Zyprexa; also increased standing dose of Zyprexa to 30 mg. -although patient has been refusing Depakote, he has not reverted back to the former wild manic behaviors that he had prior to starting Depakote; perhaps the little amount of Depakote that he took broke some of the anna? To be determined 04/16 patient says he would take Depakote except that the pills are too big; handbook writer agrees to switch patient's Depakote to Sprinkles to see if this will be tolerated or if patient will continue to refuse this medication. However, pt con tinues to refuse Depakote -due to refusing depakote and increased bedtime zyprexa, pt is getting about Zyprexa 40-50mg which literature reports can be helpful in refractory cases. While he's still internally preoccupied and w/out insight, his Anna seems to have subsided. 04/19 Pt continues to refuse depakote; since there is no way to ensure compliance and pt just keeps getting zyprexa IM, will dc zyprexa and increase standing dose to 40mg which has been helpful. -pt is able to remain calm, cooperative and organized in discussion with handbook writer regarding treatment; he says he likes the zyprexa and will keep taking it, but no the depakote. He says he knows he needs to continue w/ zyprexa as an outpatient, and intends to do so. Although pt is still internally preoccupied he is mostly able to keep his behaviors under control and is not intrusive or destructive, sleeping through the night and no longer inappropriate with female (or male) staff (or peers). He is eating well. Anna has resolved and Patient is organized enough to modify his behaviors in order to present a certain way; however, Home Staging Specialist suspects that he still lacks insight and will likely stop taking meds at some point post discharged. -discussed case with dr. Jerez who will review chart, see patient and see if there are any further recs Home Staging Specialist talked with Mother who reported a history of possible TBIs due to BMX b iking; she reports the most recent to be about 3 months prior to this admission; discussed this with dr. Jerez who agrees that this hx is very unlikely to be contributing to patients current psychotic and manic symptoms as symptoms predate this hx and pt has no neurological deficits; at this point, head CT not applicable. He is not able to tolerate MRI at this time; imaging will not alter current course of tx and is something that can be pursued as outpt when more stable. PLAN: Court ordered Civil commitment and substituted judgment took off 1:1 since less manic; no longer intrusive and intimidating behaviors to female staff) MEDICATION PLAN: - DISCONTINUED Depakote; Pt refuses and IM not available; instead will focus on Zyprexa for treating psychosis/anna -INCREASED Zyprexa/zydis 40mg qhs (anna resolved; refusing depakote but at this dose pt has improved) -regarding Zyprexa, experts suggest some patients may require doses up to 50 mg/day for optimal response (CANMAT [Keri 2018]; Ignacia 2009; [place] 2019). -Zyprexa p.r.n. IM to 20 mg daily. for refusal of bedtime Zyprexa -IF REFUSES ZYPREXA PO.... GIVE ZYPREXA IM -scheduled Seroquel 200mg at bedtime for continued insomnia -Seroquel 50mg TID for anxiety/agitation; -Cogentin 1mg PRN -handbook writer examined left foot ulceration which is healing well -pt reported broken nose from falling off bed (which 1.5 feet off ground); pt however points to upper lip area, not nose -reports bruised knuckle from fall off bed which is bruised, but only mildly tender to palpation with some swelling; surrounding bones palpated and are non- tender; full range of motion, 5/5 strength -if pt requires chemical restraint...can use Zyprexa IM....But NOT WITH IM BENZO . -Ativan 1mg prn for panic/anxiety (pt asks for this) -Discontinued Paliperidone (caused dystonia) -discontinued Abilify since not effective -discontinued Seroquel since overly sedating -dIScontinued ziprasidone as it has not seemed to help much ( maybe less mumbling to himself but he remains continually responding to internal stimuli) [facility] contacted (pt gave verbal permission to call and involve [facility] in his case) pt gave verbal permission to call and involve mother in his case DONNA MEDICATON: Seroquel: too sedating Zyprexa Fluphenazine Abilify: NOT effective Paliperidone/invega: dystonic reaction Risperdal Ziprasidone Depakote trazodone Medication hx: -Of note, discharge summary from 2018 reports that patient did well on Zyprexa 2 0 mg. -patient however reports that Zyprexa 'harmed him and he prefers Seroquel; -Mother reports patient did well on Invega Sustenna; pt c/o erectile dysfunction on this med but mother reports this was complaint before pt on meds. -Dystonic reaction to paliperidon Regarding zypexa with benzo's: [employer] states Concomitant use: Concurrent use of parenteral benzodiazepine and IM olanzapine is not recommended; if considered, monitor for excessive sedation and cardiorespiratory depression (Product Information: ZYPREXA(R) oral tablets, intramuscular injection, olanzapine oral tablets, intramuscular injection. [employer], [place], [place], 2010) Collateral information obtained on 03/16 Home Staging Specialist spoke with patient's mother Ko Arguello ([phone]).? Home Staging Specialist did not give her any information at all about her son but listened to her concerns (mother had called at least once before, wanting to share information).? Patient's mother expressed extreme concern.? She said that for months he has been deteriorating but that it has gotten much worse the past 2 weeks.? She said for a couple months patient was talking about people trying to harm him and poison him with food; subsequently his mom says he has not been eating very much and has lost significant weight.? She says he had cameras connected at his apartment to proved people were coming in an out in order to harm him.? He also started talking about they were attacking him with islam and hearing a voice to tell him to commit suicide and hurt other people however he said he knew better, meaning that it's not right to do so.? Mother said that his symptoms worsened over the past 2 weeks and he once was wandering the streets all night, coming home dirty; people in the community were noticing significant difference as patient is known and well liked in his neighborhood; ? She said he has become very paranoid repeating that people are trying to poison him and week prior to this admission, he threw out all the food in his refrigerator.? Mother said he was in distress, constantly saying people were attacking him through islam and trying to murder him in his sleep and threw food.? He also specifically identified his neighbor, who recently moved into the building, was attacking him with islam and told his mom ?I need to get rid of him...? I need to kick his ass since I know he is trying to kill me... She reports other times patient was unable to maintain a conversation, as he would stop to talk to himself.? His mother explained the incident that led to his admission to [facility] (where he only spent about 3 days, and was admitted to this hospital about 3 days after discharge) saying that he was at his friend's house, [place], locked himself in the bathroom and was screaming all night long, until 06:00 that people were try ing to kill him, that he will let them kill him, praying to God to keep people from killing him and baking for it to stop.? When he came out of the bathroom he went to various pictures on the wall and started yelling at them.? Reportedly angel raza was fearful for his own safety and called crisis/911.? Soon after, she reports locked himself in his grandparents basement for 3 days, refusing to eat, talking to himself constantly, screaming and also making his grandfather fearful for both his and patients safety.? Patient's mother says that in the past he was on Invega and was doing great able to have normal, fluid conversations, in his right mind, outgoing, socially appropriate and his normal self.? She says he complained of getting erectile dysfunction from the medication and did not want to take it, however she reports he was complaining of erectile dysfunction months before he was ever on any medication.? Patient's [facility] worker also holds this perspective. 03/20/21: Continue current plan of care. 03/28/2021: No changes to primary team treatment plan Greater than 50% of the session was spent on counseling and/or coordination of care Reason for contiued inpatient stay Substantial Risk for: other
[2021-04-22 09:52] VITALS: BP 134/62; PULSE 92; RESP 18; TEMP 36.7; O2SAT 97
[2021-04-22] MEDS: Nicotine Polacrilex 2 MG GUM BUCCAL ×3 (11:56→23:39)
--- NOTE | 2021-04-22 17:11 | P.PNPSI_ITS ---
Subjective Subjective Date of Service: 04/22/21 Reason For Visit: Psychosis Subjective Notes: Section 8 Interim History: Patient seen and discussed with team. RN reports recent incidents of pt climbing on furniture but this did not occur during current shift. I evaluated the patient this evening and upon inquiry he reports he is ?doing fabulous.? Says his only concern is that he is taking ?too many zyprexas,? would want fewer pills but per pharmacist, the hospital does not carry 20 mg tabs. Says his sleep is ?fabulous.? Denies having questions. Says he feels safe. Going to groups. Hoping to discharge before his birthday, wants to celebrate at home with his family.?? In the milieu, patient is safe and appropriate in behavior, redirectable, continues to respond to internal stimuli. Denies SI/SIB/HI upon inquiry. Denies irritability or assaultive ideation. Says he feels safe. Mental Status Exam Mental Status Exam Narrative: Alert to self, place, and mostly to situation; behavior is calm and cooperative; he remains internally stimulated and talking to himself; has not been making inappropriate sexualized comments to staff but recently less so; no longer intrusive but can still be exceedingly silly at times, laughing to himself so;mood/ affect? constricted;? eye contact adequate;? Speech normal rate, volume and prosody; no?psychomotor agitation; thought process is more goal oriented and linear; Thought content?on medication/discharge;? he Denies AVH, however he remains internally preoccupied; he denies any SI/HI.? Patients insight and judgment are impaired but have improved. Diagnostics Vital Signs (24Hr): Vital Signs - 24 hr 04/22/21 09:52 Temperature 98.1 F Pulse Rate 92 Respiratory Rate 18 Blood Pressure 134/62 Pulse Oximetry 97 Body Mass Index 22.1 Labs Results: 04/12/21 11:46 04/12/21 11:46 Imaging Radiology Impressions: ITS Impressions Elbow X-Ray 03/30/21 10:25 IMPRESSION: Small joint effusion. No fracture seen. If there is a history of trauma and clinical suspicion of fracture, follow-up x-ray in one week would be recommended. Medications Medications Current Medications Acetaminophen (Acetaminophen 325 Mg Tablet) 650 mg PO Q6H PRN PRN Reason: Headache/Pain Mild Scale (1-3) Last Admin: 03/29/21 12:36 Dose: 650 mg Documented by: Al Hydroxide/Mg Hydroxide (Magnesium Hydrox/Alum Hydrox 30 Ml Oral.Susp) 30 ml PO Q6H PRN PRN Reason: Heartburn/Nausea Magnesium Hydroxide (Milk Of Magnesia 30 Ml Oral.Susp) 30 ml PO DAILY PRN PRN Reason: Constipation Nicotine Polacrilex (Nicotine Polacrilex 2 Mg Gum) 2 mg BUCCAL Q1H PRN PRN Reason: Nicotine Cravings Last Admin: 04/22/21 14:29 Dose: 2 mg Documented by: Olanzapine (Olanzapine Odt 10 Mg Tab.Rapdis) 10 mg TRANSLINGU TID PRN PRN Reason: agitation Last Admin: 04/07/21 23:53 Dose: 10 mg Documented by: Olanzapine (Olanzapine Odt 10 Mg Tab.Rapdis) 40 mg TRANSLINGU BEDTIME EUGENIA Last Admin: 04/21/21 19:45 Dose: 40 mg Documented by: Olanzapine (Olanzapine 10 Mg Vial) 20 mg IM DAILY PRN PRN Reason: IF REFUSES PO or..agitation Omeprazole (Omeprazole 20 Mg Capsule.Dr) 20 mg PO DAILY PRN PRN Reason: GERD Quetiapine Fumarate (Quetiapine Fumarate 200 Mg Tablet) 200 mg PO BEDTIME EUGENIA Last Admin: 04/21/21 19:45 Dose: 200 mg Documented by: Allergies Allergies Allergy/AdvReac Type Severity Reaction Status Date / Time diphenhydramine Allergy Unknown unknown Verified 10/12/20 04:33 [From BENADRYL] haloperidol [From HALDOL] Allergy Unknown unknown Verified 10/12/20 04:33 paliperidone AdvReac Severe dystonia Verified 03/30/21 23:47 Assessment & Plan Assessment & Plan (1) Schizoaffective disorder: Qualifiers: Schizoaffective disorder type: bipolar Qualified Code(s): F25.0 - Schizoaffective disorder, bipolar type Status: Acute Code(s): F25.9 - Schizoaffective disorder, unspecified Assessment and Plan: IMPRESSION: Jose is a 25 y.o. male who carries a diagnosis of schizoaffective disorder who presents after his grandparents called the ambulance out of concern for patient's disorganized behavior.? On 02/24/2021 patient presented to [facility] ED disorganized and ED note reads: 25 yo male with hx of anxiety, review of records show schizoaffective disorder, EMS was called today due to the patient kneeling outside, being jittery, acting off, no SI statements made, EMS notes the patient was just staring off...ROS unable to be obtained due to patient not really answering questions... Patient was discharged from the ED.? reportedly he went to his friend's house, was again acting bizarrely, kneeling in the center of the room with his shirt off, talking in a disorganized way to the point where his friend became scared, called 911 or crisis and patient was admitted to [facility].? He was only there for a few days, [facility] was not contacted any was discharged without follow-up in place.? He then showed up at his grandparent's house, locked himself in their basement and was reportedly crying, not eating, not sleeping and talking, laughing to himself, saying people are telling him to commit suicide and crying, saying that aliens are coming.? Grandparents called for ambulance and patient was taken to [facility].? It was reported that on arrival to the emergency room he laid down on the bathroom floor. HOSPITAL COURSE: Patient initially presents as overall calm but has no insight, denies any of the past reported behaviors and repeatedly asks for discharge.? Patient does not want medications saying he does not need.? Patient remains on Section 12 B. He asked investigative writer to call [facility] staff since they know him well. Of note, pt has hx of agitation, aggression and last time at [place] [id number], broke through locked fire exit by kicking in door and eloped -refusing medications -[facility] worker John who knows him well believes that patient is ?getting worse? and decompensating.? As paranoid, persecutory delusions that hospital staff is trying to poison him.? Patient has other paranoid, persecutory delusions that his neighbor is attacking him with scientologist and has asked for help to get rid of him; also patient believes his for mother, family, friend are lying about him which has resulted in hospitalization.? -[facility] correctional case records supervisor agrees with civil commitment -Patient is on a Section 12. This is patient's 3rd presentation to a hospital in less than 2 weeks, and reportedly people in the community have been recently sc ared of him. He has seem to be CAH and Patient is reported to have made suicidal comments saying people are telling me to commit suicide. He has paranoid, persecutory delusions and is without any insight at all, refusing medications.? Patient has made threatening comments to staff while on the unit and sexualized and intimidating comments/behavior toward a specific female staff, requiring pt to be on 1;1 Patient also has history of making verbal threats and being extremely agitative and destructive of property.? At this time, team agrees that patient is at risk for harm to self or others and requires inpatient admission and medication for his and others safety.? Team will move forward with petition the court for civil commitment and substituted judgment. -Patient being titrated on Seroquel; he says he does not like this dose since it makes him tired during the day, though he has been seen in the milieu interacting pleasantly and not looking sedated. He wants medication lowered back to 50 mg and cannot understand that this dose is too low to treat psychotic symptoms. Registration Rep offered to change medication that will be sedating but patient refuse -03/22 patient reports Seroquel is too sedating; he cannot accept or understand reasons for medication or increased dose of Seroquel as he remains without insight into his psychotic disorder. Will continue with Seroquel since that was his request and see if his body adapts and no longer feel sedated; however if he remains excessively tired, we will likely have to switch to another antipsychotic medication trial Switch to Paliperidone/Invega 03/25/21 -on 03/25 patient remains tired which he says is from Seroquel. Patient symptoms have not resolved at all despite Seroquel being titrated to almost 400 mg. Giv en that patient is intermittently sedated, and does not want to continue with Seroquel at this dose, will switch medication to Paliperidone which is on his Foley order and his mother reports was very effective in the past. Registration Rep considered starting ziprasidone instead given that patient complained of erectile dysfunction on Paliperidone/Invega; however both his mother and correctional case records supervisor reported that his complaints of erectile dysfunction started prior to ever being on Paliperidone/Invega. Because this has been shown effective in the past, it seems that it is patient's best interest to have symptoms resolved as soon as possible, rather than endure another trial of a medication that might no t work. Registration Rep has attempted several times to discuss this potential medication change however patient has not been organized enough to tolerate discussion. Once patient is again stable and organized, he can always discussing med change with his outpatient provider. 03/29/21 pt less irritable; remians disorganized. Seems to have dystonic reaction which seems to have improved with cogentin. Labs ordered and NMS ruled out. 03/30/21 will discontinue Paliperidone as it caused dystonia; starting and titrating Abilify; remains manic/psychotic 04/02/21: Will continue med regimen per primary team, IM zyprexa 10 mg was utilized on evening of 04/01/21 due to combative and disruptive unsafe behaviors. Staff report positive benefit on olanzapine. 04/03/21: Discussed benefit on olanzapine with primary psychiatrist. Will discontinue abilify 20 mg due to lack of effect on disorganized and bizarre/ unsafe behavior, start zydis 10 mg QHS. Reviewed risks and benefits with Tanner hernandez. Ordered wound consult due to ulcer on L foot. 04/04 Abilify proved ineffective; patient started on Zyprexa which seems to be helping 04/05: Seemed at Zyprexa was helping however patient is now on Zyprexa 20 mg and remains floridly psychotic and manic. Patient is only 25 years old and investigative writer would very much like to find a monotherapy treatment for this patient; however options are becoming limited. If patient does not make any improvement soon, will switch to Geodon; otherwise Prolixin remains last option for monotherapy (due to Foley), and considering that patient had dystonic reaction to Paliperidone, investigative writer would prefer to avoid another medium to high potency antipsychotic. 04/06 started Ziprasidone 20mg BID, titrated to 40mg BID; medication had no effect. Registration Rep wanted to continue titrating this medication however patient remains floridly manic, is destroying property, threatening staff On both his Zyprexa and ziprasidone he was mumbling to himself less, however he was still continually responding to internal stimuli. Unfortunately monotherapy does not seem to be working andDue to his disorganized, agitated and intermittently threatening behavior will start Depakote on 04/08 04/08 Depakote started; has been taking; seems a little less manic will switch to PM dosing to see if can alleviate daytime tiredness -Will continue Zyprexa for now, it is unclear if it is partially helpful or not all ( maybe less mumbling to himself but he remains continually responding to internal stimuli) -IF Depakote is helpful may just see if patient can do okay on Depakote and Seroquel which did reduce anna but at higher doses over sedated him. 04/11-04/13 patient with some minimal improvement, a little more calm and organized, with more organized speech. He was taking Depakote which likely helped with improvement. however, he has recently been refusing again and continues to be distracted by internal dialogue, talking to and answering to himself; laughing hilariously inappropriately. Trying to decrease number of pills pt has to take to see if this can help with adherence. Still has no insight. 04/14 pt is calm, mostly pleasant in behavior. He continues to respond to internal stimuli, mumbling to self. He refused depakote today. Limited insight and engagement in tx. -patient continues to refuse Depakote. He remains without insight into s ituation. Registration Rep reviewed literature and noted that some patients require higher than the traditional max dose of Zyprexa in order to treat anna and so investigative writer increased Zyprexa p.r.n. to b.i.d., for refusal of either Depakote or Zyprexa; also increased standing dose of Zyprexa to 30 mg. -although patient has been refusing Depakote, he has not reverted back to the former wild manic behaviors that he had prior to starting Depakote; perhaps the little amount of Depakote that he took broke some of the anna? To be determined 04/16 patient says he would take Depakote except that the pills are too big; investigative writer agrees to switch patient's Depakote to Sprinkles to see if this will be tolerated or if patient will continue to refuse this medication. However, pt continues to refuse Depakote -due to refusing depakote and increased bedtime zyprexa, pt is getting about Zyprexa 40-50mg which literature reports can be helpful in refractory cases. While he's still internally preoccupied and w/out insight, his Anna seems to have subsided. 04/19 Pt continues to refuse depakote; since there is no way to ensure compliance and pt just keeps getting zyprexa IM, will dc zyprexa and increase standing dose to 40mg which has been helpful. -pt is able to remain calm, cooperative and organized in discussion with investigative writer regarding treatment; he says he likes the zyprexa and will keep taking it, but no the depakote. He says he knows he needs to continue w/ zyprexa as an outpatient, and intends to do so. Although pt is still internally preoccupied he is mostly able to keep his behaviors under control and is not intrusive or destructive, sleeping through the night and no longer inappropriate with female (or male) staff (or peers). He is eating well. Anna has resolved and Patient is organized enough to modify his behaviors in order to present a certain way; however, Registration Rep suspects that he still lacks insight and will likely stop taking meds at some point post discharged. -discussed case with dr. Jerez who will review chart, see patient and see if there are any further recs 04/22: Pt is focused on discharge, has been med adherent. Continues to be internally preoccupied, laughing to self, no behavioral concerns today. No changes made to med regimen. Registration Rep talked with Mother who reported a history of possible TBIs due to BMX biking; she reports the most recent to be about 3 months prior to this admission; discussed this with dr. Jerez who agrees that this hx is very unlikely to be contributing to patients current psychotic and manic symptoms as symptoms predate this hx and pt has no neurological deficits; at this point, head CT not applicable. He is not able to tolerate MRI at this time; imaging will not alter current course of tx and is something that can be pursued as ou tpt when more stable. PLAN: Court ordered Civil commitment and substituted judgment took off 1:1 since less manic; no longer intrusive and intimidating behaviors to female staff) MEDICATION PLAN: - DISCONTINUED Depakote; Pt refuses and IM not available; instead will focus on Zyprexa for treating psychosis/anna -INCREASED Zyprexa/zydis 40mg qhs (anna resolved; refusing depakote but at this dose pt has improved) -regarding Zyprexa, experts suggest some patients may require doses up to 50 mg/day for optimal response (MICHAEL [Yamuam 2018]; Ignacia 2009; Umza 2019). -Zyprexa p.r.n. IM to 20 mg daily. for refusal of bedtime Zyprexa -IF REFUSES ZYPREXA PO.... GIVE ZYPREXA IM -scheduled Seroquel 200mg at bedtime for continued insomnia -Seroquel 50mg TID for anxiety/agitation; -Cogentin 1mg PRN -investigative writer examined left foot ulceration which is healing well -pt reported broken nose from falling off bed (which 1.5 feet off ground); pt however points to upper lip area, not nose -reports bruised knuckle from fall off bed which is bruised, but only mildly tender to palpation with some swelling; surrounding bones palpated and are non- tender; full range of motion, 5/5 strength -if pt requires chemical restraint...can use Zyprexa IM....But NOT WITH IM BENZO . -Ativan 1mg prn for panic/anxiety (pt asks for this) -Discontinued Paliperidone (caused dystonia) -discontinued Abilify since not effective -discontinued Seroquel since overly sedating -dIScontinued ziprasidone as it has not seemed to help much ( maybe less mumbling to himself but he remains continually responding to internal stimuli) [facility] contacted (pt gave verbal permission to call and involve [facility] in his case) pt gave verbal permission to call and involve mother in his case DONNA MEDICATON: Seroquel: too sedating Zyprexa Fluphenazine Abilify: NOT effective Paliperidone/invega: dystonic reaction Risperdal Ziprasidone Depakote trazodone Medication hx: -Of note, discharge summary from 2018 reports that patient did well on Zyprexa 20 mg. -patient however reports that Zyprexa 'harmed him and he prefers Seroquel; -Mother reports patient did well on Invega Sustenna; pt c/o erectile dysfunction on this med but mother reports this was complaint before pt on meds. -Dystonic reaction to paliperidon Regarding zypexa with benzo's: [employer] states Concomitant use: Concurrent use of parenteral benzodiazepine and IM olanzapine is not recommended; if considered, monitor for excessive sedation and cardiorespiratory depression (Product Information: ZYPREXA(R) oral tablets, intramuscular injection, olanzapine oral tablets, intramuscular injection. [employer], [place], [place], 2009) Collateral information obtained on 03/16 Registration Rep spoke with patient's mother Ko Arguello ([phone]).? Registration Rep did not give her any information at all about her son but listened to her concerns (mother had called at least once before, wanting to share information).? Patient's mother expressed extreme concern.? She said that for months he has been deteriorating but that it has gotten much worse the past 2 weeks.? She said for a couple months patient was talking about people trying to harm him and poison him with food; subsequently his mom says he has not been eating very much and has lost significant weight.? She says he had cameras connected at his apartment to proved people were coming in an out in order to harm him.? He also started talking about they were attacking him with scientologist and hearing a voice to tell him to commit suicide and hurt other people however he said he knew better, meaning that it's not right to do so.? Mother said that his symptoms worsened over the past 2 weeks and he once was wandering the streets all night, coming home dirty; people in the community were noticing significant difference as patient is known and well liked in his neighborhood; ? She said he has become very paranoid repeating that people are trying to poison him and week prior to this admission, he threw out all the food in his refrigerator.? Mother said he was in distress, constantly saying people were attacking him through scientologist and trying to murder him in his sleep and threw food.? He also specifically identified his neighbor, who recently moved into the building, was attacking him with scientologist and told his mom ?I need to get rid of him...? I need to kick his ass since I know he is trying to kill me... She reports other times patient was unable to maintain a conversation, as he would stop to talk to himself.? His mother explained the incident that led to his admission to [facility] (where he only spent about 3 days, and was admitted to this hospital about 3 days after discharge) saying that he was at his friend's house, [place], locked himself in the bathroom and was screaming all night long, until 06:00 that people were trying to kill him, that he will let them kill him, praying to God to keep people from killing him and baking for it to stop.? When he came out of the bathroom he went to various pictures on the wall and started yelling at them.? Reportedly angel raza was fearful for his own safety and called crisis/911.? Soon after, she reports locked himself in his grandparents basement for 3 days, refusing to eat, talking to himself constantly, screaming and also making his grandfather fearful for both his and patients safety.? Patient's mother says that in the past he was on Invega and was doing great able to have normal, fluid conversations, in his right mind, outgoing, socially appropriate and his normal self.? She says he complained of getting erectile dysfunction from the medication and did not want to take it, however she reports he was complaining of erectile dysfunction months before he was ever on any medication.? Patient's [facility] worker also holds this perspective. 03/20/21: Continue current plan of care. 03/28/2021: No changes to primary team treatment plan Greater than 50% of the session was spent on counseling and/or coordination of care Reason for contiued inpatient stay Substantial Risk for: inability to function, rapid decompensation and med/psych decompensation
[2021-04-22 19:35] VITALS: BP 128/74; PULSE 112; TEMP 37
[2021-04-22] MEDS: QUEtiapine Fumarate 200 MG TABLET PO (21:10)
[2021-04-22] MEDS: OLANZapine ODT 10 MG TAB.RAPDIS 40 MG TRANSLINGU (21:10)
[2021-04-23] MEDS: Nicotine Polacrilex 2 MG GUM BUCCAL ×5 (10:43→23:46)
--- NOTE | 2021-04-23 11:48 | P.PNPSI_ITS ---
Subjective Subjective Date of Service: 04/23/21 Reason For Visit: Psychosis Subjective Notes: Section 8 Interim History: Pt very pleasant and cooperative- taking medication co Headache took tylenol Medication Compliance: Yes Side effects from medications: No Attending Groups: No Review of Systems Acute medical concerns: No Review of Systems Review of Systems mild headache Mental Status Exam Mental Status Exam Patient Appearance: Appropriate Patient Orientation: Person, Place and Situation Level of Consciousness: Awake and Appropriate Patient Behavior: Appropriate and Talkative Mood Description: Cheerful Affect Description: Appropriate Patient Cognition Impaired: No Ability to Follow Directions: Fair Speech Pattern: Appropriate Hallucinations: None Delusions: Grandiose (?) Thought Process: Intact Thought Content: positive for [place] Judgement: Poor Diagnostics Vital Signs (24Hr): Vital Signs - 24 hr 04/22/21 19:35 Temperature 98.6 F Pulse Rate 112 H Blood Pressure 128/74 Body Mass Index 22.1 Labs Results: 04/12/21 11:46 04/12/21 11:46 Imaging Radiology Impressions: ITS Impressions Elbow X-Ray 03/30/21 10:25 IMPRESSION: Small joint effusion. No fracture seen. If there is a history of trauma and clinical suspicion of fracture, follow-up x-ray in one week would be recommended. Medications Medications Current Medications Acetaminophen (Acetaminophen 325 Mg Tablet) 650 mg PO Q6H PRN PRN Reason: Headache/Pain Mild Scale (1-3) Last Admin: 03/29/21 12:36 Dose: 650 mg Documented by: Al Hydroxide/Mg Hydroxide (Magnesium Hydrox/Alum Hydrox 30 Ml Oral.Susp) 30 ml PO Q6H PRN PRN Reason: Heartburn/Nausea Magnesium Hydroxide (Milk Of Magnesia 30 Ml Oral.Susp) 30 ml PO DAILY PRN PRN Reason: Constipation Nicotine Polacrilex (Nicotine Polacrilex 2 Mg Gum) 2 mg BUCCAL Q1H PRN PRN Reason: Nicotine Cravings Last Admin: 04/23/21 10:43 Dose: 2 mg Documented by: Olanzapine (Olanzapine Odt 10 Mg Tab.Rapdis) 10 mg TRANSLINGU TID PRN PRN Reason: agitation Last Admin: 04/07/21 23:53 Dose: 10 mg Documented by: Olanzapine (Olanzapine Odt 10 Mg Tab.Rapdis) 40 mg TRANSLINGU BEDTIME EUGENIA Last Admin: 04/22/21 21:10 Dose: 40 mg Documented by: Olanzapine (Olanzapine 10 Mg Vial) 20 mg IM DAILY PRN PRN Reason: IF REFUSES PO or..agitation Omeprazole (Omeprazole 20 Mg Capsule.Dr) 20 mg PO DAILY PRN PRN Reason: GERD Quetiapine Fumarate (Quetiapine Fumarate 200 Mg Tablet) 200 mg PO BEDTIME EUGENIA Last Admin: 04/22/21 21:10 Dose: 200 mg Documented by: Allergies Allergies Allergy/AdvReac Type Severity Reaction Status Date / Time diphenhydramine Allergy Unknown unknown Verified 10/12/20 04:33 [From BENADRYL] haloperidol [From HALDOL] Allergy Unknown unknown Verified 10/12/20 04:33 paliperidone AdvReac Severe dystonia Verified 03/30/21 23:47 Assessment & Plan Assessment & Plan (1) Schizoaffective disorder: Qualifiers: Schizoaffective disorder type: bipolar Qualified Code(s): F25.0 - Schizoaffective disorder, bipolar type Status: Acute Code(s): F25.9 - Schizoaffective disorder, unspecified Assessment and Plan: IMPRESSION: 25 yo male with schizoaffective do doing better/cooperative- continues with no insight /judgement 04/22: Pt is focused on discharge, has been med adherent. Continues to be internally preoccupied, laughing to self, no behavioral concerns today. No changes made to med regimen. PLAN: Court ordered Civil commitment and substituted judgment taking olanzapine po or if not being given IM per court order Greater than 50% of the session was spent on counseling and/or coordination of care Patient educated on: therapeutic strategies Informed Consent: does not understand Reason for contiued inpatient stay Substantial Risk for: rapid decompensation
[2021-04-23] MEDS: Acetaminophen 325 MG TABLET 650 MG PO (12:29)
[2021-04-23 18:00] VITALS: BP 125/80; PULSE 80; TEMP 37
[2021-04-23] MEDS: QUEtiapine Fumarate 200 MG TABLET PO (19:52)
[2021-04-23] MEDS: OLANZapine ODT 10 MG TAB.RAPDIS 40 MG TRANSLINGU (19:52)
[2021-04-24] MEDS: Nicotine Polacrilex 2 MG GUM BUCCAL ×4 (04:14→22:05)
[2021-04-24 06:00] VITALS: BP 138/69; PULSE 83; RESP 20; TEMP 36.2; O2SAT 98
--- NOTE | 2021-04-24 11:36 | HO.PSYCHPN ---
Subjective Subjective Date of Service: 04/24/21 Reason For Visit: Psychosis Subjective Notes: Section 8 Interim History: Pt got upset after another patient became agitated on unit- started talking to himself, and then was guarded keeping an eye on other patient who went off= taking his meds said he didn't sleep well last pm - after incident on unit Medication Compliance: Yes Side effects from medications: No Attending Groups: No Review of Systems Acute medical concerns: No Medical Review of Systems: unchanged Mental Status Exam Mental Status Exam Narrative: withdrawn lying in bed this am Patient Appearance: Fatigued Patient Orientation: Person and Place Level of Consciousness: Drowsy Patient Behavior: Appropriate and Poor Eye Contact Mood Description: Withdrawn Affect Description: Blunted Ability to Follow Directions: Fair Speech Pattern: Mumbled Thought Process: Intact Thought Content: positive for [place] Judgement: Fair Diagnostics Vital Signs (24Hr): Vital Signs - 24 hr 04/23/21 18:00 04/24/21 06:00 Temperature 98.6 F 97.1 F Pulse Rate 80 83 Respiratory Rate 20 Blood Pressure 125/80 138/69 Pulse Oximetry 98 Body Mass Index 22.1 Labs Results: 04/12/21 11:46 04/12/21 11:46 Imaging Radiology Impressions: ITS Impressions Elbow X-Ray 03/30/21 10:25 IMPRESSION: Small joint effusion. No fracture seen. If there is a history of trauma and clinical suspicion of fracture, follow-up x-ray in one week would be recommended. Medications Medications Current Medications Acetaminophen (Acetaminophen 325 Mg Tablet) 650 mg PO Q6H PRN PRN Reason: Headache/Pain Mild Scale (1-3) Last Admin: 04/23/21 12:29 Dose: 650 mg Documented by: Al Hydroxide/Mg Hydroxide (Magnesium Hydrox/Alum Hydrox 30 Ml Oral.Susp) 30 ml PO Q6H PRN PRN Reason: Heartburn/Nausea Magnesium Hydroxide (Milk Of Magnesia 30 Ml Oral.Susp) 30 ml PO DAILY PRN PRN Reason: Constipation Nicotine Polacrilex (Nicotine Polacrilex 2 Mg Gum) 2 mg BUCCAL Q1H PRN PRN Reason: Nicotine Cravings Last Admin: 04/24/21 04:14 Dose: 2 mg Documented by: Olanzapine (Olanzapine Odt 10 Mg Tab.Rapdis) 10 mg TRANSLINGU TID PRN PRN Reason: agitation Last Admin: 04/07/21 23:53 Dose: 10 mg Documented by: Olanzapine (Olanzapine Odt 10 Mg Tab.Rapdis) 40 mg TRANSLINGU BEDTIME EUGENIA Last Admin: 04/23/21 19:52 Dose: 40 mg Documented by: Olanzapine (Olanzapine 10 Mg Vial) 20 mg IM DAILY PRN PRN Reason: IF REFUSES PO or..agitation Omeprazole (Omeprazole 20 Mg Capsule.Dr) 20 mg PO DAILY PRN PRN Reason: GERD Quetiapine Fumarate (Quetiapine Fumarate 200 Mg Tablet) 200 mg PO BEDTIME EUGENIA Last Admin: 04/23/21 19:52 Dose: 200 mg Documented by: Allergies Allergies Allergy/AdvReac Type Severity Reaction Status Date / Time diphenhydramine Allergy Unknown unknown Verified 10/12/20 04:33 [From BENADRYL] haloperidol [From HALDOL] Allergy Unknown unknown Verified 10/12/20 04:33 paliperidone AdvReac Severe dystonia Verified 03/30/21 23:47 Assessment & Plan Assessment & Plan (1) Schizoaffective disorder: Qualifiers: Schizoaffective disorder type: bipolar Qualified Code(s): F25.0 - Schizoaffective disorder, bipolar type Status: Acute Code(s): F25.9 - Schizoaffective disorder, unspecified Assessment and Plan: IMPRESSION: 25 yo male with schizoaffective do doing better/cooperative- continues with limited insight /judgement PLAN: Court ordered Civil commitment and substituted judgment taking olanzapine po or if not being given IM per court order Greater than 50% of the session was spent on counseling and/or coordination of care Patient educated on: other Informed Consent: further education needed Reason for contiued inpatient stay Substantial Risk for: rapid decompensation
[2021-04-24 16:39] VITALS: BP 149/61; PULSE 100; TEMP 36.1
[2021-04-24] MEDS: QUEtiapine Fumarate 200 MG TABLET PO (20:16)
[2021-04-24] MEDS: OLANZapine ODT 10 MG TAB.RAPDIS 40 MG TRANSLINGU (20:16)
[2021-04-25 18:00] VITALS: RESP 16
[2021-04-25] MEDS: OLANZapine ODT 10 MG TAB.RAPDIS 40 MG TRANSLINGU (19:52)
[2021-04-25] MEDS: QUEtiapine Fumarate 200 MG TABLET PO (19:53)
[2021-04-25] MEDS: Nicotine Polacrilex 2 MG GUM BUCCAL (19:53)
--- NOTE | 2021-04-25 21:58 | HO.PSYCHPN ---
Subjective Subjective Date of Service: 04/25/21 Reason For Visit: Psychosis Interim History: pt seen on 04/25; seen with GABI Grover, pt's mother Bernardo and [facility] [place]NOTE 2[place] employee relations consultant, John discussed patients treatment course, patients improvement, but that he has not returned to baseline. Patient sitting calmly, in good behavioral control and with linear, goal directed and organized speech and behavior. He says he's ready to go; reports that he's good and that he will continue to take his medications on discharge saying he knows he needs them. Bi Manager discussed patients past concerns about his neighbor doing congregation on him to which he said No he's note doing that...that's fake...i'm not even worried about that... Pt has been eating and sleeping well and though he remains internally preoccupied and with limited insight into psychiatric illness, patient has been able overall keep himself in behavioral control and demonstrate appropriate with staff and peers, w/out intimidating or intrusive behavior; he's been taking his medications regularly. It was discussed with mom and employee relations consultant that although patient reports he will continue taking his Zyprexa on discharge, he remains with limited insight and will likely at some point discontinue taking his medications. They both agree that he is both improved and also will likely stop his meds at some point soon, as this has been his chronic pattern. He refuses VNA and refused to switch to daytime dosing which would make it easier for [facility] [place]NOTE 2] staff to help him with adherence. Mental Status Exam Mental Status Exam Narrative: Alert to self, place, and mostly to situation; behavior is calm and cooperative; he remains internally stimulated and talking to himself; no intimidating, inappropriate behaviors toward others; no longer intrusive, though intermittently silly at times, laughing to himself so;mood good affect? constricted;? eye contact adequate;? Speech normal rate, volume and prosody; no?psychomotor agitation; thought process is goal oriented and linear; Thought content?on discharge;? he Denies AVH, however he remains internally preoccupied; he denies any SI/HI.? Patients insight and judgment are impaired but has improved. Diagnostics Vital Signs (24Hr): Vital Signs - 24 hr 04/25/21 18:00 Respiratory Rate 16 Body Mass Index 22.1 Labs Results: 04/12/21 11:46 04/12/21 11:46 Imaging Radiology Impressions: ITS Impressions Elbow X-Ray 03/30/21 10:25 IMPRESSION: Small joint effusion. No fracture seen. If there is a history of trauma and clinical suspicion of fracture, follow-up x-ray in one week would be recommended. Medications Medications Current Medications Acetaminophen (Acetaminophen 325 Mg Tablet) 650 mg PO Q6H PRN PRN Reason: Headache/Pain Mild Scale (1-3) Last Admin: 04/23/21 12:29 Dose: 650 mg Documented by: Al Hydroxide/Mg Hydroxide (Magnesium Hydrox/Alum Hydrox 30 Ml Oral.Susp) 30 ml PO Q6H PRN PRN Reason: Heartburn/Nausea Magnesium Hydroxide (Milk Of Magnesia 30 Ml Oral.Susp) 30 ml PO DAILY PRN PRN Reason: Constipation Nicotine Polacrilex (Nicotine Polacrilex 2 Mg Gum) 2 mg BUCCAL Q1H PRN PRN Reason: Nicotine Cravings Last Admin: 04/25/21 19:53 Dose: 2 mg Documented by: Olanzapine (Olanzapine Odt 10 Mg Tab.Rapdis) 10 mg TRANSLINGU TID PRN PRN Reason: agitation Last Admin: 04/07/21 23:53 Dose: 10 mg Documented by: Olanzapine (Olanzapine Odt 10 Mg Tab.Rapdis) 40 mg TRANSLINGU BEDTIME EUGENIA Last Admin: 04/25/21 19:52 Dose: 40 mg Documented by: Olanzapine (Olanzapine 10 Mg Vial) 20 mg IM DAILY PRN PRN Reason: IF REFUSES PO or..agitation Omeprazole (Omeprazole 20 Mg Capsule.Dr) 20 mg PO DAILY PRN PRN Reason: GERD Quetiapine Fumarate (Quetiapine Fumarate 200 Mg Tablet) 200 mg PO BEDTIME EUGENIA Last Admin: 04/25/21 19:53 Dose: 200 mg Documented by: Allergies Allergies Allergy/AdvReac Type Severity Reaction Status Date / Time diphenhydramine Allergy Unknown unknown Verified 10/12/20 04:33 [From BENADRYL] haloperidol [From HALDOL] Allergy Unknown unknown Verified 10/12/20 04:33 paliperidone AdvReac Severe dystonia Verified 03/30/21 23:47 Assessment & Plan Assessment & Plan (1) Schizoaffective disorder: Qualifiers: Schizoaffective disorder type: bipolar Qualified Code(s): F25.0 - Schizoaffective disorder, bipolar type Status: Acute Code(s): F25.9 - Schizoaffective disorder, unspecified Assessment and Plan: IMPRESSION: 25 yo male with schizoaffective do Pt has improved, is taking medications, denies SI, HI and has demonstrated in control behaviors with peers, staff; he is eating and sleeping well; patient says he knows he needs medications and that he will continue taking Zyprexa. He denies any negative side-effects and says he likes zyprexa. He remains internally preoccupied, talking to himself and has limited insight; he can also be intermittently silly, laughing to himself. 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 Patient has CHD services and has a strong rapport with John his case manger. His mother and grandmother also live nearby, are both supportive and involved and patient feels close to both of them. While patient remains vulnerable for going off his medications and future decompensation he no longer meets criteria for involuntary commitment and his request for discharge honored. PLAN: Court ordered Civil commitment and substituted judgment pt no longer meets criteria for involuntary commitment and his request discharge honored. Greater than 50% of the session was spent on counseling and/or coordination of care Reason for contiued inpatient stay Substantial Risk for: stable for discharge
[2021-04-26] MEDS: Nicotine Polacrilex 2 MG GUM BUCCAL ×3 (01:09→13:51)
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
== END 2021-04-26 14:57 | disposition home or self-care (01) | DRG 750 ==
LOC: HO.ED 18:17 → HO.PM5 03-07 19:44
PROVIDERS: Physician Assistant; Admitting Provider Registered Nurse; Emergency Provider Emergency Medicine; PCP Internal Medicine; Visit Provider Psychiatry & Neurology Psychiatry
DX: F25.9 Schizoaffective disorder, unspecified (principal); Z91.14 Patient's other noncompliance with medication regimen; F17.210 Nicotine dependence, cigarettes, uncomplicated; Z71.6 Tobacco abuse counseling; Z20.822 Contact with and (suspected) exposure to COVID-19; Z79.899 Other long term (current) drug therapy
CPT/HCPCS: 36415; 73070; 80048; 80051; 80061; 80076; 80164; 80307; 81003; 82140; 82565; 83036; 83615; 84520; 85025; 87635; 93005; 99285; J0515

== ENCOUNTER 2021-05-09 07:17 | Emergency (ER) | payer MEDICAID, SELFPAY ==
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
[2021-05-09 07:33] VITALS: BP 149/73; PULSE 104; O2SAT 100
[2021-05-09 07:34] VITALS: BP 147/88; PULSE 101; RESP 14; O2SAT 99; BMI 18.7
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
[2021-05-09 07:56] LABS: MANUAL DIFF FLAG NO
[2021-05-09 07:57] LABS: Basophils Percent Auto 0.4 % (0-2); Eosinophils Percent Auto 0.5 % (0-4); Hematocrit 38.2 % (42-52); Hemoglobin 13.7 g/dl (14.0-18.0); Imm Gran Abs Auto 0.02 X10*3/uL (0.00-0.03); Imm Gran Pct Auto 0.3 % (0.0-0.4); Lymphocytes Absolute Auto 1.1 X10*3/uL (1.2-4.9); Lymphocytes Percent Auto 13.9 % (20-40); Mean Corpuscular HGB Conc 35.9 g/dl (31.0-36.0); Mean Corpuscular Volume 89.3 fL (80-98); Mean Platelet Volume 9.1 fL (9.4-12.4); Monocytes Absolute Auto 0.8 X10*3/uL (0.1-1.2); Monocytes Percent Auto 10.4 % (2-11); Neutrophils Absolute Auto 5.9 X10*3/uL (2.0-8.3); Neutrophils Percent Auto 74.5 % (45-73); Platelet Count 186 X10*3/uL (160-400); Red Blood Count 4.28 X10*6/uL (4.60-5.80); Red Cell Distribution Width 12.2 % (11.0-16.0)
[2021-05-09 08:09] LABS: Ethanol < 10 mg/dL
[2021-05-09] MEDS: Midazolam HCl/PF 2 MG/2 ML VIAL 4 MG IVPUSH (08:14)
[2021-05-09] MEDS: Diphth,Pertus(ACell),Tet Adult 0.5 ML SYRINGE IM (08:15)
[2021-05-09] MEDS: 0.9 % Sodium Chloride 500 ML 999 ML IV (08:18)
[2021-05-09 08:21] LABS: Alanine Aminotransferase 29 U/L (0-40); Albumin Level 4.6 g/dL (3.5-5.0); Alkaline Phosphatase 70 U/L (39-117); Anion Gap 16 (12-20); Aspartate Amino Transferase 22 U/L (5-37); Bilirubin Direct 0.2 mg/dL (0.0-0.5); Bilirubin Total 0.7 mg/dL (0.0-1.0); Blood Urea Nitrogen 15 mg/dL (9-16); Calcium 9.2 mg/dL (8.4-10.2); Carbon Dioxide 23 mmol/L (22-29); Chloride 106 mmol/L (96-108); Creatinine Clr Calc Pharmacy 109.9; Estimated Glomerular Filt Rate > 60; Glucose Random 121 mg/dL (60-115); Sodium 141 mmol/L (135-145); Total Protein 7.2 g/dL (6.5-8.0)
[2021-05-09 08:34] LABS: Amphetamine Screen Urine Not Detected (Not Detect); Barbiturates, Urine Not Detected (Not Detect); Benzodiazepines Screen Urine Not Detected (Not Detect); Cannabinoid Screen Urine Not Detected (Not Detect); Cocaine Screen Urine Not Detected (Not Detect); Fentanyl, urine Not Detected (Not Detect); Opiate Screen Urine Not Detected (Not Detect); Phencyclidine Screen Urine Not Detected (Not Detect)
[2021-05-09 08:55] VITALS: BP 122/53; PULSE 69; RESP 14; O2SAT 99
--- NOTE | 2021-05-09 08:56 | PC.NURSE ---
The pt was transported to CT with 2 RN's and RT, fully monitored with O2 via nasal cannula at 2L PM. Throughout the trip to and from CT the pt remained asleep secondary to Versed administration prior to departing for CT. Upon return to ED room 5 pt remains asleep. Neck wound bleeding controlled, very mild amount of swelling surrounding the wound. VSS. Respirations non-labored, RR WNL. Will continue to monitor/await CT result. 1:1 remains at bedside
[2021-05-09] MEDS: iohexoL 350 MG/ML 100 ML INFUS..BTL 70 ML IV (09:09)
--- NOTE | 2021-05-09 10:26 | PC.NURSE ---
@ 1022AM DR BAILEY REQUESTS CALL OUT TO [facility] PT TX LINE MJ ANSWERS, TAKES PT INFO AND CALL BACK NUMBER THEN ASKS TO SPEAK WITH DR LEO BAILEY TAKES OVER CALL RIGHT AWAY
[2021-05-09 11:24] VITALS: BP 122/52; PULSE 72; RESP 14; O2SAT 100
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
== END 2021-05-09 11:29 | disposition short-term general hospital (02) ==
PROVIDERS: Emergency Provider Student in an Organized Health Care Education/Training Program; PCP Internal Medicine
DX: F25.1 Schizoaffective disorder, depressive type (principal); R45.851 Suicidal ideations; S11.93XA Puncture wound without foreign body of unspecified part of neck, initial encounter; M54.2 Cervicalgia; X78.1XXA Intentional self-harm by knife, initial encounter; Y93.9 Activity, unspecified; Y92.9 Unspecified place or not applicable; Y99.9 Unspecified external cause status; F17.200 Nicotine dependence, unspecified, uncomplicated; Z71.6 Tobacco abuse counseling; Z79.899 Other long term (current) drug therapy
CPT/HCPCS: 36415; 70498; 80048; 80076; 80307; 82077; 85025; 90471; 90715; 96374; 99284; 99291; 99292; J2250; Q9967

== ENCOUNTER 2021-07-06 14:18 | Inpatient (IN) | payer MEDICAID, SELFPAY ==
--- NOTE | ~2021-07-06 | CT_ITS ---
EXAMINATION: CT HEAD WITHOUT CONTRAST CLINICAL INFORMATION: Ataxia COMPARISON: May 09, 2021 and January 03, 2017 TECHNIQUE: Contiguous axial imaging was performed from the skull base to vertex without intravenous administration of contrast. This CT examination was performed using dose optimization techniques as appropriate, variously including the following: *Automated exposure control *Adjustment of mA and/or kV according to patient size (this includes techniques or standardized protocols for targeted exams where dose is matched to indication/reason for exam; i.e. extremities or head) *Use of iterative reconstruction technique DLP: 715 mGy-cm FINDINGS: There is no evidence of acute intracranial hemorrhage or territorial infarction. No abnormal mass effect or midline shift is seen. To to white matter differentiation is well preserved. No extra-axial fluid collections are identified. The ventricles are normal in size. There is no abnormal attenuation within the brain parenchyma. The osseous structures and soft tissues are normal. The mastoid air cells are well aerated. There is a mucous retention cyst seen within the right maxillary sinus. No air-fluid levels within visualized paranasal sinuses identified. CT/CT head/brain wo con IMPRESSION: No acute intracranial pathology.
[2021-07-06 14:51] VITALS: BP 128/88; BP 141/82; PULSE 102; PULSE 94; RESP 14; O2SAT 100; O2SAT 97; BMI 21.9
--- NOTE | 2021-07-06 14:59 | ED_ITS ---
HPI - General Adult General Chief complaint: General Medical Stated complaint: ATAXIA, ? RXN TO NEW MED PER EMS Time Seen by Provider: 07/06/21 14:54 Source: patient Mode of arrival: ambulatory Limitations: no limitations History of Present Illness HPI narrative: 26-year-old male history of schizoaffective disorder, patient was started on Prolixin injection of 100 mg IM, last given was 2 weeks ago at [facility] patient for the last 5 days been getting on voluntary movement of right upper extremities, ataxia, unsteady gait, no facial dystonia weakness, patient otherwise declined any headache blurry vision, no weakness, patient is unable to feed himself because the severe twitching movement of the right hand need somebody to feed him, patient is unable to ambulate with steady gait, patient's symptoms thought to be a side effect from Prolixin injection. Patient decline depression at the current time with no SI. Related Data Previous Rx's Medication Instructions Recorded quetiapine 200 mg tablet (Seroquel) 200 mg PO BEDTIME 30 Days #30 tab 04/26/21 olanzapine 20 mg tablet (Zyprexa) 40 mg PO BEDTIME 30 Days #60 tab 04/27/21 Allergies Allergy/AdvReac Type Severity Reaction Status Date / Time diphenhydramine Allergy Unknown unknown Verified 10/12/20 04:33 [From BENADRYL] haloperidol [From HALDOL] Allergy Unknown unknown Verified 10/12/20 04:33 paliperidone AdvReac Severe dystonia Verified 03/30/21 23:47 Review of Systems Review of Systems: All other systems are reviewed and are negative Constitutional: Reports as per HPI and Reports no additional constitutional complaints Eyes: Reports as per HPI and Reports no additional eye complaints Reports system reviewed and no additional complaints, except as documented Cardiovascular: Reports as per HPI and Reports no additional cardiovascular complaints Respiratory: Reports as per HPI and Reports no additional respiratory complaints Gastrointestinal: Reports as per HPI and Reports no additional gastrointestinal complaints Genitourinary: Reports no additional female genitourinary complaints Musculoskeletal: Reports no additional musculoskeletal complaints Skin/Breast: Reports system reviewed and no additional complaints, except as docu Psychiatric: Reports no additional psychiatric complaints Endocrine: Reports no additional endocrine complaints Hematologic/Lymphatic: Reports no additional hematologic/lymphatic complaints Allergic/Immunologic: Reports no additional allergic/immunologic complaints Reports system reviewed and no additional complaints, except as documented and Reports Abnormal speech present [facility] Past Medical History Medical History Anxiety Schizoaffective disorder Social History Social History Household Members: None Housing: Unknown / Unable to assess Do you presently have visiting nurse or other home services: No Unable to assess alcohol history related to: Refusing to respond Alcohol intake: unknown Patient Tobacco Use Status: Former Tobacco user Tobacco use type: Cigarette Cigarettes Per Day: 5 Years Smoked: unknown Smoked in Last 30 Days: No Use of substances other than those prescribed or required for medical reasons: No Advance Directives: No Advance Directives Information Provided: No service: No Physical Exam Vital Signs: Vital Signs: Last Vital Signs Temp 99.3 F 07/06/21 19:09 Pulse 90 07/06/21 19:09 Resp 16 07/06/21 19:09 BP 110/62 07/06/21 19:09 Pulse Ox 98 07/06/21 19:09 BMI result Body Mass Index 21.9 Vital signs have been reviewed as appeared to be correct. Blood pressure normal. Heart rate normal. Respiration rate normal. Temperature normal. Oxygen saturation normal. Appearance: Alert. Oriented X3. No acute distress. Head: Normal external exam. Normocephalic. Atraumatic. No Trevizo signs noted. No raccoon eyes noted Eyes: PERRLA. EOMI. Conjunctiva and sclera normal. Eyelids normal. ENT: TM's Normal. Pharynx normal. Uvula midline. Moist mucous membranes. No trismus noted. No drooling noted. No muffled voice noted. Neck: Normal inspection. Neck supple. FROM. No adenopathy. Thyroid Normal. No meningeal signs. No neck mass noted. CVS: Normal heart rate and rhythm. Heart sound normal. No murmurs noted. Pulses normal throughout. Respiratory: No respiratory distress. Painless inspiration. Breath sounds normal. No wheezes/rales/rhonchi noted. Chest nontender. No accessory muscle usage noted or decreased air movement noted. Abdomen: Soft and nontender. Bowel sounds normal in all 4 quadrants. No di stention noted. No organomegaly noted. No visible injury noted. Back: No CVA tenderness. Full range of motion noted. Skin: Skin warm and dry. Normal skin color. Normal skin turgor. No rashes/le sions/lacerations noted. Extremities: No lower extremity edema. Extremities exhibit normal range of motion. Extremities nontender. Neuro: Oriented X 3. Cranial nerve exam: II-XII are grossly intact No motor deficit. No sensory deficit. Reflexes normal. No facial dystonic reaction change, significant right involuntary tremor mostly in the right upper extremities, gait is not tested but reportedly by EMS patient is unsteady gait. Course Course Course Narrative: Assessment and plan. 26-year-old male with history of schizoaffective disorder depression, patient has been taking Prolixin injection IM, as a result patient developed a dystonic reaction, patient was sent from retirement for worsening of the dystonic reaction over the past 5 days, patient is unable to feed himself cannot target his mouth with his hand due to severe dystonic reaction, patient also walking with severe ataxia and unsteady gait, while patient in the emergency department patient received multiple doses of benzos, anticholinergic medication, patient had partial improvement of his dystonia, but still ataxic with unsteady gait with risk of falling, the case discussed with Dr. Link from Neurology Service, and Esteban Esposito in P from psych unit, who recommended to continue the patient on long-acting benzo, continue with cogentin and patient should be admitted for adjustment of his psych medication, and improvement of his symptoms. Patient had otherwise normal neuro exam, given the age and the normal CT of the head underlying causes of patient's symptoms is very unlikely. Medical Decision Making Medical Records Medical records reviewed: Yes I reviewed the patient's medical records. Lab Data Lab results reviewed: Yes I reviewed the patient's lab results. Result diagrams: 07/06/21 15:15 07/06/21 15:15 Labs: Lab Results 07/06/21 07/06/21 07/06/21 Range/Units 15:15 15:15 15:15 WBC 9.2 (4.8-10.8) X10*3/uL RBC 5.24 (4.60-5.80) X10*6/uL Hgb 16.7 (14.0-18.0) g/dl Hct 47.0 (42.0-52.0) % MCV 89.7 (80.0-98.0) fL MCH 31.9 (27.0-33.0) pg MCHC 35.5 (31.0-36.0) g/dl RDW 11.6 (11.0-16.0) % Plt Count 239 (160-400) X10*3/uL MPV 8.9 L (9.4-12.4) fL Immature Gran % (Auto) 0.1 (0.0-0.4) % Neut % (Auto) 67.7 (45-73) % Lymph % (Auto) 19.5 L (20-40) % [place] % (Auto) 11.5 H (2-11) % Eos % (Auto) 0.9 (0-4) % Baso % (Auto) 0.3 (0-2) % Lymph # (Auto) 1.8 (1.2-4.9) X10*3/uL [place] # (Auto) 1.1 (0.1-1.2) X10*3/uL Eos # (Auto) 0.1 (0.0-0.4) X10*3/uL Baso # (Auto) 0.0 (0.0-0.2) X10*3/uL Abs Immat Gran (auto) 0.01 (0.00-0.03) X10*3/uL Absolute Neuts (auto) 6.3 (2.0-8.3) x10*3/uL Absolute Nucleated RBC 0.000 (0.0-0.012) X10*3/uL Nucleated RBC % (auto) 0.0 (0.0-0.2) /100WBC Sodium 136 (135-145) mmol/L Potassium 4.3 (3.3-5.1) mmol/L Chloride 100 (96-108) mmol/L Carbon Dioxide 25 (22-29) mmol/L Anion Gap 15 (12-20) BUN 21 H (9-16) mg/dL Creatinine 1.11 (0.5-1.4) mg/dL Estim Creat Clear Calc 113.6 Estimated GFR > 60 Random Glucose 89 (60-115) mg/dL Calcium 10.2 D (8.4-10.2) mg/dL Total Bilirubin 0.8 (0.0-1.0) mg/dL Direct Bilirubin 0.3 (0.0-0.5) mg/dL AST 29 (5-37) U/L ALT 24 (0-40) U/L Alkaline Phosphatase 71 (39-117) U/L Troponin I High Sens < 3.5 (<3.5-35.0) ng/L Total Protein 7.8 (6.5-8.0) g/dL Albumin 5.2 H (3.5-5.0) g/dL Imaging Data CT scan - head: Radiologist's impression: No acute intracranial pathology. Discharge Plan Discharge Clinical Impression: Acute dystonic reaction due to drugs Patient Disposition: Admitted As Inpatient Prescriptions: No Action quetiapine [Seroquel] 200 mg Tablet 200 mg PO BEDTIME 30 Days Qty: 30 RF: 0 olanzapine [Zyprexa] 20 mg tablet 40 mg PO BEDTIME 30 Days Qty: 60 RF: 0
[2021-07-06 15:03] VITALS: BP 141/82; PULSE 94; RESP 14; O2SAT 97
[2021-07-06 15:22] LABS: MANUAL DIFF FLAG NO
[2021-07-06 15:24] LABS: Basophils Percent Auto 0.3 % (0-2); Eosinophils Absolute Auto 0.1 X10*3/uL (0.0-0.4); Eosinophils Percent Auto 0.9 % (0-4); Hemoglobin 16.7 g/dl (14.0-18.0); Imm Gran Abs Auto 0.01 X10*3/uL (0.00-0.03); Imm Gran Pct Auto 0.1 % (0.0-0.4); Lymphocytes Absolute Auto 1.8 X10*3/uL (1.2-4.9); Lymphocytes Percent Auto 19.5 % (20-40); Mean Corpuscular HGB Conc 35.5 g/dl (31.0-36.0); Mean Corpuscular Hemoglobin 31.9 pg (27.0-33.0); Mean Corpuscular Volume 89.7 fL (80.0-98.0); Mean Platelet Volume 8.9 fL (9.4-12.4); Monocytes Absolute Auto 1.1 X10*3/uL (0.1-1.2); Monocytes Percent Auto 11.5 % (2-11); Neutrophils Absolute Auto 6.3 x10*3/uL (2.0-8.3); Neutrophils Percent Auto 67.7 % (45-73); Platelet Count 239 X10*3/uL (160-400); Red Blood Count 5.24 X10*6/uL (4.60-5.80); Red Cell Distribution Width 11.6 % (11.0-16.0); White Blood Count 9.2 X10*3/uL (4.8-10.8)
[2021-07-06] MEDS: 0.9 % Sodium Chloride 1,000 ML 999 ML IVCONT (15:44)
[2021-07-06] MEDS: LORazepam 2 MG/ML VIAL 1 MG IVPUSH (15:44)
[2021-07-06 15:46] LABS: Alanine Aminotransferase 24 U/L (0-40); Albumin Level 5.2 g/dL (3.5-5.0); Alkaline Phosphatase 71 U/L (39-117); Anion Gap 15 (12-20); Aspartate Amino Transferase 29 U/L (5-37); Bilirubin Direct 0.3 mg/dL (0.0-0.5); Bilirubin Total 0.8 mg/dL (0.0-1.0); Blood Urea Nitrogen 21 mg/dL (9-16); Calcium 10.2 mg/dL (8.4-10.2); Carbon Dioxide 25 mmol/L (22-29); Chloride 100 mmol/L (96-108); Creatinine Clr Calc Pharmacy 113.6; Estimated Glomerular Filt Rate > 60; Glucose Random 89 mg/dL (60-115); Potassium 4.3 mmol/L (3.3-5.1); Sodium 136 mmol/L (135-145); Total Protein 7.8 g/dL (6.5-8.0)
[2021-07-06 15:47] LABS: Troponin-I High Sensitivity < 3.5 ng/L (<3.5-35.0)
[2021-07-06] MEDS: Trihexyphenidyl HCL 2 MG TABLET PO (16:05)
[2021-07-06 16:09] VITALS: BP 128/70; PULSE 79; RESP 16; TEMP 36.9; O2SAT 100
[2021-07-06] MEDS: Baclofen 10 MG TABLET PO (17:30)
[2021-07-06] MEDS: LORazepam 1 MG TABLET 2 MG PO (17:30)
[2021-07-06 19:09] VITALS: BP 110/62; PULSE 90; RESP 16; TEMP 37.4; O2SAT 98
[2021-07-06 20:00] VITALS: BP 109/60; PULSE 74; RESP 16; TEMP 37.2; O2SAT 100
--- NOTE | 2021-07-06 20:15 | MHC.CARE ---
CARE team support requested for pt who arrived to ED by ambulance earlier this afternoon for dystonic side effects of fluphenazine, an IM injection antipsychotic medication that was started during a recent admission to [facility] at the end of May. ED attending physician Dr. Sanabria expressed concern due several recent admissions and significant history of psychosis and self harm, and asked that CARE team check in with pt for a risk assessment. This sports writer met with pt in ED room 8. He was laying with his eyes closed, though easily roused to verbal stimuli. He made good eye contact, mood was fair, affect blunted, and he appeared to be a bit sedated from medications that were administered. He reported that things have been going well and he has been engaged with his ACCS team at [facility]. Prior to arrival, his visiting nurse had went to his apartment to administer his medications and when she noted his physical symptoms, she called for EMS. He denied SI/HI/AVH. He reported that he has an appointment coming up soon with his psychiatrist, doesn't remember which day. He said he gets one shot in each arm every two weeks and he had his second round of the medication last week. [facility] [place] TONNY Munoz was consulted on the case. She recommended a medical admission to treat the dystonia, followed by a transfer to in psych for stabilization. CARE team will continue to follow.
[2021-07-06] MEDS: Benztropine Mesylate 1 MG TABLET PO (20:18)
[2021-07-06] MEDS: clonazePAM 1 MG TABLET PO (20:18)
--- NOTE | 2021-07-06 20:23 | PC.NURSE ---
medicated pt per Mar.
[2021-07-06 20:37] LABS: COVID-19 Test Negative (Negative)
--- NOTE | 2021-07-06 20:38 | PHA.MEDREC ---
Pharmacy Consult ? Medication Reconciliation Pharmacy has completed the medication reconciliation.
--- NOTE | 2021-07-06 21:23 | PC.NURSE ---
[facility] staff called to inform this filing writer of her concerns about patient. States patient had a serious suicide attempt and when he came out of [facility] he was placed on the injectable medication. Patient was not compliant with any of his oral medication which was the reason he was placed on the injectable medication. The normal dosage for that medication is 25 mg q 4 weeks and the patient is on 100 mg q 2wks. Staff is concerned that this may be the cause of his ataxia. Once patient is cleared medically he will have to be evaluated by psych if he is taken off of the injectable medication due to his non compliance with medication
[2021-07-06 23:46] VITALS: BP 112/72; PULSE 72; RESP 16; TEMP 36.6; O2SAT 99
[2021-07-07] VITALS (7 sets, daily range): BP systolic 113–144; BP diastolic 62–73; PULSE 59–82; RESP 15–16; TEMP 36.8–37.2; O2SAT 96–100
[2021-07-07] MEDS: clonazePAM 1 MG TABLET PO ×3 (01:26→20:39)
[2021-07-07 03:57] LABS: Appearance Urine CLEAR; Color Urine YELLOW; Glucose Urine UA NEG (NEG); Leukocyte Esterase Urine NEG (NEG); Nitrite Urine NEG (NEG); Specific Gravity - Urine >= 1.030 (1.005-1.025); UACC Culture Trigger NO; Urine Blood NEG (NEG); Urine Ketones 15 MG/DL (NEG); Urine Protein TRACE MG/DL (NEG-TRACE)
--- NOTE | 2021-07-07 06:34 | PM.IMHP ---
History of Present Illness Date of Service: 07/06/21 Chief Complaint: Dystonia This is a 26-year-old male with a history of anxiety as well as schizoaffective disorder who comes from skilled nursing with reported history of 5 days of dystonic movements as well inability to eat due to extrapyramidal disease. Patient has flat affect, answers questions with one-word answers, he reports that he is not feeling well for few days, has not been able to eat, has involuntary movement and has not been able to eat due to those. This occurred after he got injections He denies any chest pain, no shortness of breath, no cough, no abdominal pain nausea or vomiting, no diarrhea constipation, no urinary symptoms and no lower extremity edema. No headache, change in vision, numbness weakness or tingling. On arrival to the ED patient hemodynamically stable with no significant abnormal vitals Labs reviewed showed no significant abnormality Head CT shows no acute intracranial pathology Review of Systems Review of Systems: Yes all other systems are reviewed and are negative [facility] Medical History (Updated 07/07/21 @ 06:43 by Donald Cobb MD) Anxiety Schizoaffective disorder Pertinent family history: Yo coronary artery disease Surgical History (Updated 07/07/21 @ 06:42 by Donald Cobb MD) No pertinent past surgical history Social History Household Members: None Housing: Unknown / Unable to assess Do you presently have visiting nurse or other home services: No Unable to assess alcohol history related to: Refusing to respond Alcohol intake: unknown Patient Tobacco Use Status: Former Tobacco user Tobacco use type: Cigarette Cigarettes Per Day: 5 Years Smoked: unknown Smoked in Last 30 Days: No Use of substances other than those prescribed or required for medical reasons: No Advance Directives: No Advance Directives Information Provided: No service: No Meds Allergies Allergy/AdvReac Type Severity Reaction Status Date / Time diphenhydramine Allergy Unknown unknown Verified 10/12/20 04:33 [From BENADRYL] haloperidol [From HALDOL] Allergy Unknown unknown Verified 10/12/20 04:33 paliperidone AdvReac Severe dystonia Verified 03/30/21 23:47 Active Medications: Current Medications Clonazepam (Clonazepam 1 Mg Tablet) 1 mg PO BID EUGENIA Last Admin: 07/07/21 01:26 Dose: 1 mg Documented by: Pharmacy Consult (Consult Rx Perform Med Rec) 1 each MISCELLANE ONCE PRN PRN Reason: Consult order Home Medications Medication Instructions Recorded Confirmed Last Taken Type benztropine 1 mg tablet 1 tab PO BID 07/06/21 07/06/21 07/05/21 History fluphenazine decanoate 25 mg/mL 100 mg IM Q14D 07/06/21 07/06/21 06/29/21 History injection solution lorazepam 1 mg tablet 1 tab PO DAILY PRN 07/06/21 07/06/21 07/05/21 History olanzapine 20 mg tablet (Zyprexa) 20 mg PO BEDTIME 07/06/21 07/06/21 07/05/21 History Physical Exam Vital Signs and Narrative: Vital Signs: Last Vital Signs Temp 98.9 F 07/07/21 04:15 Pulse 72 07/07/21 04:15 Resp 15 07/07/21 06:00 BP 132/72 07/07/21 04:15 Pulse Ox 98 07/07/21 04:15 BMI result Body Mass Index 21.9 Const: General: cooperative and no acute distress Orientation/consciousness: patient oriented x3 Eyes: General: appearance normal, both eyes and all related structures Resp: Effort & Inspection: normal respiratory effort Auscultation: clear to auscultation bilaterally Cardio: Rate: regular rate Rhythm: regular rhythm GI: Palpation (GI): Soft to palpation Auscultation: normal bowel sounds Skin: General skin exam: no rashes or lesions noted Neuro: Other: Significant tremors on minimal movement General: patient oriented x3 Cognition (Neuro): normal cognition Extrem: General: Yes normal to inspection and Yes no pedal edema Psych: Other: Flat affect Results Labs CBC and Chem 7: 07/06/21 15:15 07/06/21 15:15 Labs: Laboratory Results - last 24 hr 07/06/21 07/06/21 07/06/21 15:15 15:15 15:15 MCV 89.7 MCH 31.9 MCHC 35.5 RDW 11.6 Plt Count 239 MPV 8.9 L Immature Gran % (Auto) 0.1 Neut % (Auto) 67.7 Lymph % (Auto) 19.5 L [place] % (Auto) 11.5 H Eos % (Auto) 0.9 Baso % (Auto) 0.3 Lymph # (Auto) 1.8 [place] # (Auto) 1.1 Eos # (Auto) 0.1 Baso # (Auto) 0.0 Abs Immat Gran (auto) 0.01 Absolute Neuts (auto) 6.3 Absolute Nucleated RBC 0.000 Nucleated RBC % (auto) 0.0 Anion Gap 15 Estim Creat Clear Calc 113.6 Estimated GFR > 60 Random Glucose 89 Calcium 10.2 D Total Bilirubin 0.8 Direct Bilirubin 0.3 AST 29 ALT 24 Alkaline Phosphatase 71 Troponin I High Sens < 3.5 Total Protein 7.8 Albumin 5.2 H Urine Color Urine Appearance Urine pH Ur Specific [place] Urine Protein Urine Glucose (UA) Urine Ketones Urine Blood Urine Nitrite Ur Leukocyte Esterase COVID-19 (ALAN) COVID-19 Clin Com 07/06/21 07/07/21 20:20 03:50 MCV MCH MCHC RDW Plt Count MPV Immature Gran % (Auto) Neut % (Auto) Lymph % (Auto) [place] % (Auto) Eos % (Auto) Baso % (Auto) Lymph # (Auto) [place] # (Auto) Eos # (Auto) Baso # (Auto) Abs Immat Gran (auto) Absolute Neuts (auto) Absolute Nucleated RBC Nucleated RBC % (auto) Anion Gap Estim Creat Clear Calc Estimated GFR Random Glucose Calcium Total Bilirubin Direct Bilirubin AST ALT Alkaline Phosphatase Troponin I High Sens Total Protein Albumin Urine Color YELLOW Urine Appearance CLEAR Urine pH 6.0 Ur Specific [place] >= 1.030 H Urine Protein TRACE Urine Glucose (UA) NEG Urine Ketones 15 Urine Blood NEG Urine Nitrite NEG Ur Leukocyte Esterase NEG COVID-19 (ALAN) Negative COVID-19 Clin Com See Note Imaging Radiologist's Impressions: Impressions Head CT 07/06/21 16:03 IMPRESSION: No acute intracranial pathology. Assessment and Plan (1) Extrapyramidal symptom: Status: Acute (2) Acute dystonic reaction due to drugs: Status: Acute (3) Dystonia: Status: Acute 26-year-old male with past medical history of schizophrenia presents to the hospital with extrapyramidal symptoms # extraforaminal symptoms/dystonia - secondary to antipsychotics including fluphenazine - will hold his olanzapine as well as fluphenazine - after discussion with Psychiatry on-call, patient will be on Klonopin 1 mg b.i.d. - psychiatry consulted for med adjustment in a.m. DVT prophylaxis: Lovenox Quality Stroke Does the patient have a stroke diagnosis?: No VTE Prior VTE?: No VTE Risk Level:: Medical - moderate - high VTE Device Contraindication: Treatment Not Indicated VTE Drug Contraindication: N/A - Med Ordered
[2021-07-07] MEDS: 0.9 % Sodium Chloride Flush 3 ML SYRINGE IVFLUSH ×2 (08:05→17:33)
[2021-07-07] MEDS: Benztropine Mesylate 1 MG TABLET PO (09:14)
[2021-07-07] MEDS: Enoxaparin Sodium 40 MG/0.4 ML SYRINGE SUBCUT (09:14)
--- NOTE | 2021-07-07 09:21 | PC.NURSE ---
Pt is alert and awake, but minimal use of body. Needs assist with drinking. Declines AM care of changing of clothes this AM. Speech is clear but low in tone and slow. Skin color normal, warm and dry. Accepted AM meds this morning. Denies depression related feelings or SI at this time
--- NOTE | 2021-07-07 09:33 | MHC.CM.PN ---
pt lives alone in his apt, he is independent in his care. he has mother that lives in [place] and a chd worker - price @ ph: [phone]. he was recently dc'd from [facility] approx 3 wks ago. pt ambulates s any AD devices. dc plan is for [facility] to [place] [facility]. pt will need help [facility]hwinder [facility] courtesy alexander. cm to cont. to follow.
--- NOTE | 2021-07-07 10:28 | PC.NURSE ---
Pt fed breakfast, tolerated well Update to [facility] KRISTEN Denise
--- NOTE | 2021-07-07 14:36 | P.PNIM_ITS ---
Subjective Subjective Date of Service: 07/07/21 Interval History: seen and examined this morning follow up for EPS/dystonia sleepy this morning Review of Systems Review of Systems: Yes all other systems are reviewed and are negative Constitutional Constitutional: Denies chills and Denies fever(s) Cardiovascular Cardiovascular: Denies chest pain Respiratory Respiratory: Denies cough Gastrointestinal Gastrointestinal: Denies abdominal pain Physical Exam Vital Signs: Vital Signs: Last Vital Signs Temp 98.9 F 07/07/21 04:15 Pulse 74 07/07/21 07:45 Resp 15 07/07/21 06:00 BP 113/63 07/07/21 07:45 Pulse Ox 99 07/07/21 07:45 BMI result Body Mass Index 21.9 Const: Other: sleepy General: no acute distress Nutritional Appearance: well nourished HENMT: Head: Yes normocephalic and Yes atraumatic Eyes: Sclerae: sclerae normal Resp: Effort & Inspection: normal respiratory effort and no respiratory distress Cardio: Rate: regular rate Rhythm: regular rhythm GI: Palpation (GI): Soft to palpation and nontender Neuro: Cranial nerves: Yes CN's II-XII intact bilaterally and Yes Bilaterally intact EOM present Extrem: Other: RUE tremor noted Psych: Affect: Blunted affect present Objective Data Active Medications Acetaminophen (Acetaminophen 325 Mg Tablet) 650 mg PO Q6H PRN PRN Reason: Pain, Mild (Pain Scale 1-3) Benztropine Mesylate (Benztropine Mesylate 1 Mg Tablet) 1 mg PO BID [facility] Last Admin: 07/07/21 09:15 Dose: Not Given Documented by: ITA Non-Admin Reason: Duplicate Order Clonazepam (Clonazepam 1 Mg Tablet) 1 mg PO BID [facility] Last Admin: 07/07/21 08:06 Dose: 1 mg Documented by: ITA Docusate Sodium (Docusate Sodium 100 Mg Capsule) 100 mg PO DAILY PRN PRN Reason: Constipation Enoxaparin Sodium (Enoxaparin Sodium 40 Mg/0.4 Ml Syringe) 40 mg SUBCUT Q24H [facility] Last Admin: 07/07/21 09:14 Dose: 40 mg Documented by: ITA Lorazepam (Lorazepam 1 Mg Tablet) 1 mg PO DAILY PRN PRN Reason: Anxiety Ondansetron HCl (Ondansetron Hcl 4 Mg/2 Ml Vial) 4 mg IVPUSH Q8H PRN PRN Reason: Nausea and Vomiting Pharmacy Consult (Consult Rx Perform Med Rec) 1 each MISCELLANE ONCE PRN PRN Reason: Consult order Sodium Chloride (0.9 % Sodium Chloride Flush 3 Ml Syringe) 3 ml IVFLUSH QSHIFT [facility] Last Admin: 07/07/21 08:05 Dose: 3 ml Documented by: ITA Labs CBC & Chem 7: 07/06/21 15:15 07/06/21 15:15 Labs: Laboratory Results - last 24 hr 07/06/21 07/06/21 07/06/21 15:15 15:15 15:15 MCV 89.7 MCH 31.9 MCHC 35.5 RDW 11.6 Plt Count 239 MPV 8.9 L Immature Gran % (Auto) 0.1 Neut % (Auto) 67.7 Lymph % (Auto) 19.5 L [place] % (Auto) 11.5 H Eos % (Auto) 0.9 Baso % (Auto) 0.3 Lymph # (Auto) 1.8 [place] # (Auto) 1.1 Eos # (Auto) 0.1 Baso # (Auto) 0.0 Abs Immat Gran (auto) 0.01 Absolute Neuts (auto) 6.3 Absolute Nucleated RBC 0.000 Nucleated RBC % (auto) 0.0 Anion Gap 15 Estim Creat Clear Calc 113.6 Estimated GFR > 60 Random Glucose 89 Calcium 10.2 D Total Bilirubin 0.8 Direct Bilirubin 0.3 AST 29 ALT 24 Alkaline Phosphatase 71 Troponin I High Sens < 3.5 Total Protein 7.8 Albumin 5.2 H Urine Color Urine Appearance Urine pH Ur Specific [place] Urine Protein Urine Glucose (UA) Urine Ketones Urine Blood Urine Nitrite Ur Leukocyte Esterase COVID-19 (ALAN) COVID-19 Clin Com 07/06/21 07/07/21 20:20 03:50 MCV MCH MCHC RDW Plt Count MPV Immature Gran % (Auto) Neut % (Auto) Lymph % (Auto) [place] % (Auto) Eos % (Auto) Baso % (Auto) Lymph # (Auto) [place] # (Auto) Eos # (Auto) Baso # (Auto) Abs Immat Gran (auto) Absolute Neuts (auto) Absolute Nucleated RBC Nucleated RBC % (auto) Anion Gap Estim Creat Clear Calc Estimated GFR Random Glucose Calcium Total Bilirubin Direct Bilirubin AST ALT Alkaline Phosphatase Troponin I High Sens Total Protein Albumin Urine Color YELLOW Urine Appearance CLEAR Urine pH 6.0 Ur Specific [place] >= 1.030 H Urine Protein TRACE Urine Glucose (UA) NEG Urine Ketones 15 Urine Blood NEG Urine Nitrite NEG Ur Leukocyte Esterase NEG COVID-19 (ALAN) Negative COVID-19 Clin Com See Note Assessment and Plan (1) Dystonia: Status: Acute (2) Extrapyramidal symptom: Status: Acute Assessment and Plan: 26-year-old male with past medical history of schizoaffective disorder present from longterm with extrapyramidal symptoms EPS/dystonia secondary to antipsychotics including fluphenazine - will hold olanzapine and fluphenazine - admitting provider discussed with Psychiatry on-call, started on Klonopin 1 mg b.i.d. - psychiatry consult for med adjustment DVT prophylaxis: Lovenox attending: dr. moses Quality Stroke Does the patient have a stroke diagnosis?: No VTE Prior VTE?: No VTE Risk Level:: Medical - moderate - high VTE Device Contraindication: Treatment Not Indicated VTE Drug Contraindication: N/A - Med Ordered
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
[2021-07-07] MEDS: Nicotine 14 MG PATCH.TD24 TRANSDERMA (17:33)
--- NOTE | 2021-07-07 17:34 | PC.NURSE ---
Pt resting comfrtably, grandmother at bedside feeding pudding, pt requesting nicotine patch. No pain at this time, A&Ox3, will continue to monitor. PT and mother updated w/POC
--- NOTE | 2021-07-07 18:34 | PC.NURSE ---
Pt began coughing while eating dinner, made aware Valentina pt asking for ensure, kitchen called. Pt offers no complaints at this time, but states he does not feel comfortable eating regular food at this time. T&P, nicotine in placeon LUpper arm.Will continue to monitor.
--- NOTE | 2021-07-07 18:34 | PC.NURSE ---
patient is a 1:1 feed ,patient is unable to eat regular foods ,due to coughing and unable to swallow , rn is aware patient had 3 puddings instead of regular foods .
[2021-07-07] MEDS: Benztropine Mesylate 1 MG TABLET 2 MG PO (20:39)
--- NOTE | 2021-07-07 22:39 | MHC.CARE ---
Pt was evaluated by CARE team and neuropsychologist. Pt will remain at [facility] and will require an inpatient admission at this time.
[2021-07-08] VITALS: BP 107/58; PULSE 93; RESP 18; TEMP 36.4; O2SAT 99
[2021-07-08 01:41] VITALS: BMI 22.6
[2021-07-08 04:00] VITALS: BP 127/58; PULSE 75; RESP 17; TEMP 35.8; O2SAT 99
[2021-07-08 06:54] LABS: MANUAL DIFF FLAG NO
[2021-07-08 07:08] LABS: Basophils Percent Auto 0.4 % (0-2); Eosinophils Absolute Auto 0.1 X10*3/uL (0.0-0.4); Eosinophils Percent Auto 1.9 % (0-4); Hemoglobin 15.2 g/dl (14.0-18.0); Imm Gran Abs Auto 0.02 X10*3/uL (0.00-0.03); Imm Gran Pct Auto 0.3 % (0.0-0.4); Lymphocytes Absolute Auto 1.5 X10*3/uL (1.2-4.9); Mean Corpuscular HGB Conc 34.5 g/dl (31.0-36.0); Mean Corpuscular Hemoglobin 31.6 pg (27.0-33.0); Mean Corpuscular Volume 91.5 fL (80.0-98.0); Mean Platelet Volume 9.2 fL (9.4-12.4); Monocytes Absolute Auto 0.7 X10*3/uL (0.1-1.2); Monocytes Percent Auto 10.3 % (2-11); Neutrophils Absolute Auto 4.4 x10*3/uL (2.0-8.3); Neutrophils Percent Auto 65.1 % (45-73); Platelet Count 201 X10*3/uL (160-400); Red Blood Count 4.81 X10*6/uL (4.60-5.80); Red Cell Distribution Width 11.8 % (11.0-16.0); White Blood Count 6.8 X10*3/uL (4.8-10.8)
[2021-07-08] MEDS: Benztropine Mesylate 1 MG TABLET 2 MG PO (07:25)
[2021-07-08] MEDS: 0.9 % Sodium Chloride Flush 3 ML SYRINGE IVFLUSH ×3 (07:25→20:25)
[2021-07-08] MEDS: Enoxaparin Sodium 40 MG/0.4 ML SYRINGE SUBCUT (07:26)
[2021-07-08] MEDS: clonazePAM 1 MG TABLET PO ×2 (07:26→20:23)
[2021-07-08] MEDS: Nicotine 14 MG PATCH.TD24 TRANSDERMA (07:26)
[2021-07-08 07:28] LABS: Anion Gap 12 (12-20); Blood Urea Nitrogen 13 mg/dL (9-16); Calcium 9.1 mg/dL (8.4-10.2); Carbon Dioxide 25 mmol/L (22-29); Chloride 105 mmol/L (96-108); Creatinine Clr Calc Pharmacy 146.4; Estimated Glomerular Filt Rate > 60; Glucose Random 92 mg/dL (60-115); Potassium 4.1 mmol/L (3.3-5.1); Sodium 138 mmol/L (135-145)
[2021-07-08 07:48] VITALS: BP 145/76; PULSE 76; RESP 20; TEMP 36.8; O2SAT 98
--- NOTE | 2021-07-08 11:24 | MHC.CM.PN ---
Per ROUNDS discussion, M5/ Inpatient Psych is the goal for dc. CM will follow as needed for dc planning.Patient's [place] Cath appears to be a barrier to dc to Psych Unit.
--- NOTE | 2021-07-08 11:35 | MHC.SL.SWA ---
Speech Pathologist Impression: Risk of Aspiration Oralpharyngeal Dysphagia Risk of Aspiration Due to: Neurological Condition Dysphasia Diet Status: No Change Liquid Consistency and Strategies for Safe Swallow: Liquid Intake Recommendation: Thin Liquid Intake Strategies: Small Sips Solid Food Consistency: Dietary Recommendations: Full liquid; pureed solid as requested Additional Modifications to Solid Foods: Recommend patient to remain on full liquid diet. Patient presents with severe oropharyngeal phase dysphagia, characterized by: significantly reduced strength and ROM of oral structures, difficulty forming bolus, delayed AP transport, incomplete laryngeal elevation, and delayed swallow. Patient drank cup of water by straw with no overt s/s of aspiration. When given half teaspoon of applesauce, no overt s/s of aspiration, but note multiple swallow attempts and difficulty forming bolus. Patient would likely exhibit difficulty eating entire meal pureed as he presents right now, but may request small amounts pureed solids to be given by half teaspoon amounts with close monitoring of tolerance and 1:1 assistance feeding- Tray may need to be withheld depending on patient's overall presentation and tolerance of PO. Strict aspiration precautions apply. Patient requires 1:1 assistance for ALL PO intake. Message sent to PA, RN, and RD. TELEVISION OPERATOR will continue to follow. Oral Medication Intake: Crushed with Puree Compensatory Strategies and Precautions to be Taken for Safe Swallow: Sitting Upright (90 deg) Liquids from Straw Small Bites and Sips Rate of Ingestion Change Oral Check Supervision While Eating and Drinking for Safe Swallow: Total Assistance Swallowing Recommended Treatments: Compens. Strategy Educat. Recommendation for Speech: Inpatient Speech Therapy Import Specialist Clinican/Clinical Fellow: Yes: Yane Gonsalves Supervisory Statement: I have reviewed and agree with the student/clinical fellow's documentation: N/A Speech Language Pathologist: Angelica Claire M.A., CCC-TELEVISION OPERATOR
--- NOTE | 2021-07-08 11:49 | HO.PM.IMPN ---
Subjective Subjective Date of Service: 07/08/21 Interval History: seen and examined this morning still having difficulty eating due to rigidity in jaw developed urinary retention overnight, rao was placed Review of Systems Review of Systems: Yes all other systems are reviewed and are negative Constitutional Constitutional: Denies chills and Denies fever(s) Cardiovascular Cardiovascular: Denies chest pain Respiratory Respiratory: Denies cough Gastrointestinal Gastrointestinal: Denies abdominal pain Physical Exam Vital Signs: Vital Signs: Last Vital Signs Temp 98.2 F 07/08/21 07:48 Pulse 76 07/08/21 07:48 Resp 20 07/08/21 07:48 BP 145/76 H 07/08/21 07:48 Pulse Ox 98 07/08/21 07:48 BMI result Body Mass Index 22.6 Const: Other: sleepy General: no acute distress, alert and awake Nutritional Appearance: well nourished HENMT: Other: limited jaw movement Head: Yes normocephalic and Yes atraumatic Eyes: Sclerae: sclerae normal Resp: Effort & Inspection: normal respiratory effort and no respiratory distress Cardio: Rate: regular rate Rhythm: regular rhythm GI: Palpation (GI): Soft to palpation and nontender Neuro: Cranial nerves: Yes CN's II-XII intact bilaterally and Yes Bilaterally intact EOM present Extrem: Other: RUE tremor noted Psych: Affect: Blunted affect present Objective Data Active Medications Acetaminophen (Acetaminophen 325 Mg Tablet) 650 mg PO Q6H PRN PRN Reason: Pain, Mild (Pain Scale 1-3) Artificial Tears (Artificial Tears 15 Ml Drops) 2 drop EYE-BOTH Q4H PRN PRN Reason: dry eyes Benztropine Mesylate (Benztropine Mesylate 1 Mg Tablet) 1 mg PO TID [facility] Clonazepam (Clonazepam 1 Mg Tablet) 1 mg PO BID [facility] Last Admin: 07/08/21 07:26 Dose: 1 mg Documented by: RIANA Docusate Sodium (Docusate Sodium 100 Mg Capsule) 100 mg PO DAILY PRN PRN Reason: Constipation Enoxaparin Sodium (Enoxaparin Sodium 40 Mg/0.4 Ml Syringe) 40 mg SUBCUT Q24H [facility] Last Admin: 07/08/21 07:26 Dose: 40 mg Documented by: RIANA Lorazepam (Lorazepam 1 Mg Tablet) 1 mg PO DAILY PRN PRN Reason: Anxiety Nicotine (Nicotine 14 Mg Patch.Td24) 14 mg TRANSDERMA DAILY [facility] Last Admin: 07/08/21 07:26 Dose: 14 mg Documented by: RIANA Ondansetron HCl (Ondansetron Hcl 4 Mg/2 Ml Vial) 4 mg IVPUSH Q8H PRN PRN Reason: Nausea and Vomiting Pharmacy Consult (Consult Rx Perform Med Rec) 1 each MISCELLANE ONCE PRN PRN Reason: Consult order Sodium Chloride (0.9 % Sodium Chloride Flush 3 Ml Syringe) 3 ml IVFLUSH QSHIFT [facility] Last Admin: 07/08/21 07:25 Dose: 3 ml Documented by: RIANA Labs CBC & Chem 7: 07/08/21 06:47 07/08/21 06:47 Labs: Laboratory Results - last 24 hr 07/08/21 07/08/21 06:47 06:47 MCV 91.5 MCH 31.6 MCHC 34.5 RDW 11.8 Plt Count 201 MPV 9.2 L Immature Gran % (Auto) 0.3 Neut % (Auto) 65.1 Lymph % (Auto) 22.0 [place] % (Auto) 10.3 Eos % (Auto) 1.9 Baso % (Auto) 0.4 Lymph # (Auto) 1.5 [place] # (Auto) 0.7 Eos # (Auto) 0.1 Baso # (Auto) 0.0 Abs Immat Gran (auto) 0.02 Absolute Neuts (auto) 4.4 Absolute Nucleated RBC 0.000 Nucleated RBC % (auto) 0.0 Anion Gap 12 Estim Creat Clear Calc 146.4 Estimated GFR > 60 Random Glucose 92 Calcium 9.1 D Assessment and Plan (1) Schizoaffective disorder, bipolar type: Status: Acute (2) Dystonia: Status: Acute (3) Extrapyramidal symptom: Status: Acute (4) Urinary retention: Status: Acute Assessment and Plan: This is a 26-year-old male with past medical history of schizoaffective disorder who presented from care home with extrapyramidal symptoms EPS/dystonia secondary to antipsychotics. still with severe symptoms - olanzapine and fluphenazine on hold - started on Klonopin 07/06 - cogentin increased 07/07, pt developed urinary rentention, will decrease to 1 mg tid - psychiatry following for ongoing need for med adjustment, recommended to add scheduled propranolol urinary retention likely from increasing dose of cogentin -will decrease dose of cogentin -remove rao, plan for voiding trial dysphagia result of EPS seen by speech, rec full liquid diet, strict aspiration precautions and 1:1 assist with feeding DVT prophylaxis: Jessnox attending: dr. moses dispo: likely to inpatient psych, can NOT leave AMA per psych Quality Stroke Does the patient have a stroke diagnosis?: No VTE Prior VTE?: No VTE Risk Level:: Medical - moderate - high VTE Device Contraindication: Treatment Not Indicated VTE Drug Contraindication: N/A - Med Ordered
[2021-07-08 12:00] VITALS: BP 145/67; PULSE 67; RESP 20; O2SAT 98
[2021-07-08 16:00] VITALS: BP 124/58; PULSE 71; RESP 18; TEMP 36.7; O2SAT 97
[2021-07-08] MEDS: Benztropine Mesylate 1 MG TABLET PO ×2 (16:28→20:24)
[2021-07-08] MEDS: Propranolol HCL 10 MG TABLET PO ×2 (16:28→20:23)
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
[2021-07-08 20:23] VITALS: BP 124/58; PULSE 71
[2021-07-09] VITALS (9 sets, daily range): BP systolic 102–120; BP diastolic 50–61; PULSE 60–88; RESP 12–18; TEMP 36.1–37; O2SAT 97–98
--- NOTE | 2021-07-09 09:58 | HO.PM.IMPN ---
Subjective Subjective Date of Service: 07/09/21 <LEANNA Massey - Last Filed: 07/09/21 10:11> 07/10/21 <Tom Ryan MD - Last Filed: 07/10/21 10:24> Interval History: seen and examined this morning follow up for EPS/dystonia still having difficulty ambulating independently, difficulty with eating urinary retention requiring straight cath overnight <LEANNA Massey - Last Filed: 07/09/21 10:11> Review of Systems Review of Systems: Yes all other systems are reviewed and are negative <LEANNA Massey - Last Filed: 07/09/21 10:11> Constitutional Constitutional: Denies chills and Denies fever(s) <LEANNA Massey - Last Filed: 07/09/21 10:11> Cardiovascular Cardiovascular: Denies chest pain <LEANNA Massey - Last Filed: 07/09/21 10:11> Respiratory Respiratory: Denies cough <LEANNA Massey - Last Filed: 07/09/21 10:11> Gastrointestinal Gastrointestinal: Denies abdominal pain <LEANNA Massey - Last Filed: 07/09/21 10:11> Physical Exam Vital Signs: Vital Signs: Last Vital Signs Temp 97.8 F 07/09/21 07:37 Pulse 60 07/09/21 07:37 Resp 16 07/09/21 07:37 BP 102/54 L 07/09/21 07:37 Pulse Ox 97 07/09/21 07:37 BMI result Body Mass Index 22.6 <LEANNA Massey - Last Filed: 07/09/21 10:11> Const: General: no acute distress, alert and awake <LEANNA Massey - Last Filed: 07/09/21 10:11> Nutritional Appearance: well nourished <LEANNA Massey - Last Filed: 07/09/21 10:11> HENMT: Head: Yes normocephalic and Yes atraumatic <LEANNA Massey - Last Filed: 07/09/21 10:11> Eyes: Sclerae: sclerae normal <LEANNA Massey - Last Filed: 07/09/21 10:11> Resp: Effort & Inspection: normal respiratory effort and no respiratory distress <LEANNA Massey - Last Filed: 07/09/21 10:11> Cardio: Rate: regular rate <LEANNA Massey - Last Filed: 07/09/21 10:11> Rhythm: regular rhythm <LEANNA Massey - Last Filed: 07/09/21 10:11> GI: Palpation (GI): Soft to palpation and nontender <LEANNA Massey - Last Filed: 07/09/21 10:11> Neuro: Other: upper extremity tremors <LEANNA Massey - Last Filed: 07/09/21 10:11> Cranial nerves: Yes Bilaterally intact EOM present <LEANNA Massey Last Filed: 07/09/21 10:11> Psych: Affect: Blunted affect present <LEANNA Massey Last Filed: 07/09/21 10:11> Objective Data Active Medications Acetaminophen (Acetaminophen 325 Mg Tablet) 650 mg PO Q6H PRN PRN Reason: Pain, Mild (Pain Scale 1-3) Artificial Tears (Artificial Tears 15 Ml Drops) 2 drop EYE-BOTH Q4H PRN PRN Reason: dry eyes Benztropine Mesylate (Benztropine Mesylate 1 Mg Tablet) 1 mg PO BID [facility] Last Admin: 07/08/21 20:24 Dose: 1 mg Documented by: TEDDY Benztropine Mesylate (Benztropine Mesylate 1 Mg Tablet) 1 mg PO DAILY PRN PRN Reason: akathesia Clonazepam (Clonazepam 1 Mg Tablet) 1 mg PO BID [facility] Last Admin: 07/08/21 20:23 Dose: 1 mg Documented by: TEDDY Docusate Sodium (Docusate Sodium 100 Mg Capsule) 100 mg PO DAILY PRN PRN Reason: Constipation Enoxaparin Sodium (Enoxaparin Sodium 40 Mg/0.4 Ml Syringe) 40 mg SUBCUT Q24H [facility] Last Admin: 07/08/21 07:26 Dose: 40 mg Documented by: RIANA Lorazepam (Lorazepam 1 Mg Tablet) 1 mg PO DAILY PRN PRN Reason: Anxiety Nicotine (Nicotine 14 Mg Patch.Td24) 14 mg TRANSDERMA DAILY [facility] Last Admin: 07/08/21 07:26 Dose: 14 mg Documented by: RIANA Ondansetron HCl (Ondansetron Hcl 4 Mg/2 Ml Vial) 4 mg IVPUSH Q8H PRN PRN Reason: Nausea and Vomiting Pharmacy Consult (Consult Rx Perform Med Rec) 1 each MISCELLANE ONCE PRN PRN Reason: Consult order Propranolol HCl (Propranolol Hcl 10 Mg Tablet) 10 mg PO TID [facility]; Protocol Last Admin: 07/08/21 20:23 Dose: 10 mg Documented by: TEDDY Sodium Chloride (0.9 % Sodium Chloride Flush 3 Ml Syringe) 3 ml IVFLUSH QSHIFT [facility] Last Admin: 07/08/21 20:25 Dose: 3 ml Documented by: TEDDY <LEANNA Massey - Last Filed: 07/09/21 10:11> Labs CBC & Chem 7: : 07/10/21 05:44 07/10/21 05:44 <LEANNA Massey - Last Filed: 07/09/21 10:11> Labs: Laboratory Results - last 24 hr 07/08/21 15:05 Total Creatine Kinase 380 H <LEANNA Massey - Last Filed: 07/09/21 10:11> Assessment and Plan (1) Urinary retention: Status: Acute <LEANNA Massey - Last Filed: 07/09/21 10:11> (2) Schizoaffective disorder, bipolar type: Status: Acute <LEANNA Massey - Last Filed: 07/09/21 10:11> (3) Dystonia: Status: Acute <LEANNA Massey - Last Filed: 07/09/21 10:11> (4) Extrapyramidal symptom: Status: Acute <LEANNA Massey - Last Filed: 07/09/21 10:11> Assessment and Plan: This is a 26-year-old male with past medical history of schizoaffective disorder who presented from senior living with extrapyramidal symptoms EPS/dystonia secondary to antipsychotics. still with persistant symptoms - olanzapine and fluphenazine on hold since admission - started on Klonopin 07/06 - continue cogentin at lower dose - psychiatry following for ongoing need for med adjustment, recommended to add scheduled propranolol - will add official neuro consult schizoaffective disorder requesting 1:1 sitter for safety psych following urinary retention likely from cogentin rao removed yesterday, did void on own, but had retention overnight bladdere scan prn, reinsert rao if ongoing retention today dysphagia result of EPS seen by speech, rec full liquid diet, strict aspiration precautions and 1:1 assist with feeding DVT prophylaxis: Brendan attending: dr. ryan dispo: likely to inpatient psych, can NOT leave AMA per psych <LEANNA Massey - Last Filed: 07/09/21 10:11> Quality Stroke Does the patient have a stroke diagnosis?: No <LEANNA Massey - Last Filed: 07/09/21 10:11> VTE Prior VTE?: No <LEANNA Massey - Last Filed: 07/09/21 10:11> VTE Risk Level:: Medical - moderate - high <LEANNA Massey - Last Filed: 07/09/21 10:11> VTE Device Contraindication: Treatment Not Indicated <LEANNA Massey - Last Filed: 07/09/21 10:11> VTE Drug Contraindication: N/A - Med Ordered <LEANNA Massey - Last Filed: 07/09/21 10:11>
[2021-07-09] MEDS: Enoxaparin Sodium 40 MG/0.4 ML SYRINGE SUBCUT (10:38)
[2021-07-09] MEDS: 0.9 % Sodium Chloride Flush 3 ML SYRINGE IVFLUSH ×3 (10:39→22:29)
[2021-07-09] MEDS: clonazePAM 1 MG TABLET PO ×2 (10:39→22:29)
[2021-07-09] MEDS: Benztropine Mesylate 1 MG TABLET PO ×2 (10:39→22:29)
[2021-07-09] MEDS: Nicotine 14 MG PATCH.TD24 TRANSDERMA (10:39)
[2021-07-09] MEDS: Propranolol HCL 10 MG TABLET PO ×3 (10:39→22:28)
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
--- NOTE | 2021-07-09 13:46 | PM.NEUROCN ---
History of Present Illness Data of Consult Service Date: 07/09/21 Primary Care Provider: Nicolas Godfrey MD [facility] Reason for consult: Tremors and ataxia This is a 26-year-old male with a history of anxiety as well as schizoaffective disorder who comes from a custodial with 5 days of involuntary movements as well inability to eat.? Patient has flat affect, answers questions with one-word answers, he reports that he is not feeling well for few days, has not been able to eat Review of Systems Review of Systems: Yes all other systems are reviewed and are negative Constitutional: Constitutional: Denies chills and Denies fever(s) Cardiovascular: Cardiovascular: Denies chest pain Respiratory: Respiratory: Denies cough Gastrointestinal: Gastrointestinal: Denies abdominal pain PMFSH Past Medical History Medical History (Updated 07/08/21 @ 11:57 by LEANNA Massey) Anxiety Schizoaffective disorder Surgical History Surgical History (Updated 07/07/21 @ 06:42 by Donald Cobb MD) No pertinent past surgical history Social History Social History Household Members: Other Housing: Other Housing Other:: custodial Do you presently have visiting nurse or other home services: Yes Unable to assess alcohol history related to: Unknown Alcohol intake: unknown Patient Tobacco Use Status: Former Tobacco user Tobacco use type: Cigarette Cigarettes Per Day: 5 Years Smoked: unknown Substance Use Type: Marijuana service: No Current occupational status: disabled Meds Allergies Allergy/AdvReac Type Severity Reaction Status Date / Time diphenhydramine Allergy Unknown unknown Verified 10/12/20 04:33 [From BENADRYL] haloperidol [From HALDOL] Allergy Unknown unknown Verified 10/12/20 04:33 paliperidone AdvReac Severe dystonia Verified 03/30/21 23:47 Active Medications: Current Medications Acetaminophen (Acetaminophen 325 Mg Tablet) 650 mg PO Q6H PRN PRN Reason: Pain, Mild (Pain Scale 1-3) Artificial Tears (Artificial Tears 15 Ml Drops) 2 drop EYE-BOTH Q4H PRN PRN Reason: dry eyes Benztropine Mesylate (Benztropine Mesylate 1 Mg Tablet) 1 mg PO BID [facility] Last Admin: 07/09/21 10:39 Dose: 1 mg Documented by: Benztropine Mesylate (Benztropine Mesylate 1 Mg Tablet) 1 mg PO DAILY PRN PRN Reason: akathesia Clonazepam (Clonazepam 1 Mg Tablet) 1 mg PO BID [facility] Last Admin: 07/09/21 10:39 Dose: 1 mg Documented by: Docusate Sodium (Docusate Sodium 100 Mg Capsule) 100 mg PO DAILY PRN PRN Reason: Constipation Enoxaparin Sodium (Enoxaparin Sodium 40 Mg/0.4 Ml Syringe) 40 mg SUBCUT Q24H [facility] Last Admin: 07/09/21 10:38 Dose: 40 mg Documented by: Lorazepam (Lorazepam 1 Mg Tablet) 1 mg PO DAILY PRN PRN Reason: Anxiety Nicotine (Nicotine 14 Mg Patch.Td24) 14 mg TRANSDERMA DAILY [facility] Last Admin: 07/09/21 10:39 Dose: 14 mg Documented by: Ondansetron HCl (Ondansetron Hcl 4 Mg/2 Ml Vial) 4 mg IVPUSH Q8H PRN PRN Reason: Nausea and Vomiting Pharmacy Consult (Consult Rx Perform Med Rec) 1 each MISCELLANE ONCE PRN PRN Reason: Consult order Propranolol HCl (Propranolol Hcl 10 Mg Tablet) 10 mg PO TID [facility]; Protocol Last Admin: 07/09/21 10:39 Dose: 10 mg Documented by: Sodium Chloride (0.9 % Sodium Chloride Flush 3 Ml Syringe) 3 ml IVFLUSH QSHIFT [facility] Last Admin: 07/09/21 10:39 Dose: 3 ml Documented by: Home Medications Medication Instructions Recorded Confirmed Last Taken Type benztropine 1 mg tablet 1 tab PO BID 07/06/21 07/06/21 07/05/21 History fluphenazine decanoate 25 mg/mL 100 mg IM Q14D 07/06/21 07/06/21 06/29/21 History injection solution lorazepam 1 mg tablet 1 tab PO DAILY PRN 07/06/21 07/06/21 07/05/21 History olanzapine 20 mg tablet (Zyprexa) 20 mg PO BEDTIME 07/06/21 07/06/21 07/05/21 History Physical Exam Vital Signs: Vital Signs: Last Vital Signs Temp 98.1 F 07/09/21 11:02 Pulse 88 07/09/21 11:02 Resp 18 07/09/21 11:02 BP 113/58 L 07/09/21 11:02 Pulse Ox 97 07/09/21 11:02 BMI result Body Mass Index 22.6 Const: General: cooperative, no acute distress, alert and awake Nutritional Appearance: well nourished Orientation/consciousness: patient oriented x3 HENMT: Head: Yes normocephalic and Yes atraumatic Eyes: General: appearance normal, both eyes and all related structures Sclerae: sclerae normal Resp: Effort & Inspection: normal respiratory effort and no respiratory distress Auscultation: clear to auscultation bilaterally Cardio: Rate: regular rate Rhythm: regular rhythm GI: Palpation (GI): Soft to palpation and nontender Auscultation: normal bowel sounds Skin: General skin exam: no rashes or lesions noted Neuro: Other: Initially the patient was asleep with no involuntary movements. When he was aroused he remained slow to respond and preferred to keep his eyes closed. When I questioned him a mild tremor appeared in his right hand and that would stop with distraction. He had normal strength and [id number] test. At some points similar lesser degree of tremor appeared in the left hand as well. General: patient oriented x3 Cranial nerves: Yes CN's II-XII intact bilaterally and Yes Bilaterally intact EOM present Cognition (Neuro): abnormal cognition (Limited responses in single words. He prefers to keep his eyes closed but ) Extrem: General: Yes normal to inspection and Yes no pedal edema Psych: Affect: Blunted affect present Results Labs CBC & Chem 7: 07/08/21 06:47 07/08/21 06:47 Labs: Cardiac Enzymes 07/08/21 Range/Units 15:05 Total Creatine Kinase 380 H (38-174) U/L Assessment and Plan (1) Urinary retention: Status: Acute (2) Schizoaffective disorder, bipolar type: Status: Acute (3) Dystonia: Status: Acute (4) Extrapyramidal symptom: Status: Acute His intermittent tremors which appeared to be psychogenic and disappear with distraction. I do not find any tone abnormality and certainly no dystonic movements at this time. I believe his movement disorder psychogenic related to his anxiety. His exam is nonfocal and CT scan is normal. This is a 26-year-old male with past medical history of schizoaffective disorder who presented from custodial with extrapyramidal symptoms EPS/dystonia secondary to antipsychotics. still with persistant symptoms - olanzapine and fluphenazine on hold since admission - started on Klonopin 07/06 - continue cogentin at lower dose - psychiatry following for ongoing need for med adjustment, recommended to add scheduled propranolol - will add official neuro consult schizoaffective disorder requesting 1:1 sitter for safety psych following urinary retention likely from cogentin rao removed yesterday, did void on own, but had retention overnight bladdere scan prn, reinsert rao if ongoing retention today dysphagia result of EPS seen by speech, rec full liquid diet, strict aspiration precautions and 1:1 assist with feeding DVT prophylaxis: Brendan attending: dr. pollard dispo: likely to inpatient psych, can NOT leave AMA per psych Procedures Date of Service Date of Service: 07/09/21
--- NOTE | 2021-07-09 17:40 | PC.NURSE ---
Patient no void 7-3 shift. Bladder scanned for >1000. New order for rao. Attempted insertion but got a lot of resistance. Patient able to stand up and urinate 500cc plus incontinent more on the floor. Miesha Montgomery aware.
[2021-07-10] VITALS (11 sets, daily range): BP systolic 99–131; BP diastolic 51–84; PULSE 59–76; RESP 16–20; TEMP 36.1–37.1; O2SAT 96–99
--- NOTE | 2021-07-10 | ECG_ITS ---
Test Reason : dystonia Blood Pressure : / mmHG Vent. Rate : 051 BPM Atrial Rate : 051 BPM P-R Int : 152 ms QRS Dur : 088 ms QT Int : 422 ms P-R-T Axes : 051 081 053 degrees QTc Int : 388 ms Sinus bradycardia with sinus arrhythmia Early repolarization Otherwise normal ECG No previous ECGs available Referred By: Miesha Montgomery Electronically Signed By:IRMA MCADAMS MD
[2021-07-10 06:12] LABS: MANUAL DIFF FLAG NO
[2021-07-10 06:16] LABS: Basophils Absolute Auto 0.1 X10*3/uL (0.0-0.2); Basophils Percent Auto 0.7 % (0-2); Eosinophils Absolute Auto 0.2 X10*3/uL (0.0-0.4); Eosinophils Percent Auto 3.1 % (0-4); Hematocrit 41.8 % (42.0-52.0); Hemoglobin 14.3 g/dl (14.0-18.0); Imm Gran Abs Auto 0.01 X10*3/uL (0.00-0.03); Imm Gran Pct Auto 0.1 % (0.0-0.4); Lymphocytes Absolute Auto 2.3 X10*3/uL (1.2-4.9); Lymphocytes Percent Auto 33.8 % (20-40); Mean Corpuscular HGB Conc 34.2 g/dl (31.0-36.0); Mean Corpuscular Hemoglobin 31.4 pg (27.0-33.0); Mean Corpuscular Volume 91.9 fL (80.0-98.0); Mean Platelet Volume 9.2 fL (9.4-12.4); Monocytes Absolute Auto 0.5 X10*3/uL (0.1-1.2); Monocytes Percent Auto 7.2 % (2-11); Neutrophils Absolute Auto 3.8 x10*3/uL (2.0-8.3); Neutrophils Percent Auto 55.1 % (45-73); Platelet Count 201 X10*3/uL (160-400); Red Blood Count 4.55 X10*6/uL (4.60-5.80); Red Cell Distribution Width 11.6 % (11.0-16.0); White Blood Count 6.8 X10*3/uL (4.8-10.8)
--- NOTE | 2021-07-10 06:39 | PC.NURSE ---
Pt didnt void the whole night, bladder scan =383ml , no discomfort nor bladder distention noted, encouraged pt to get up and try to pee but refused and wanted to sleep in.
[2021-07-10 06:51] LABS: Anion Gap 12 (12-20); Blood Urea Nitrogen 13 mg/dL (9-16); Carbon Dioxide 27 mmol/L (22-29); Chloride 104 mmol/L (96-108); Creatinine Clr Calc Pharmacy 131.6; Estimated Glomerular Filt Rate > 60; Glucose Random 94 mg/dL (60-115); Potassium 4.3 mmol/L (3.3-5.1); Sodium 139 mmol/L (135-145)
[2021-07-10 07:49] LABS: Iron 103 mcg/dL (45-160); Percent Iron Saturation 33 % (15-50); Total Iron Binding Capacity 312 mcg/dL (228-428); Unsaturated Iron Binding 209 ug/dL
[2021-07-10 08:09] LABS: Ferritin 159 ng/mL (20-250)
[2021-07-10] MEDS: Enoxaparin Sodium 40 MG/0.4 ML SYRINGE SUBCUT (09:11)
[2021-07-10] MEDS: Benztropine Mesylate 1 MG TABLET PO ×2 (09:12→21:21)
[2021-07-10] MEDS: clonazePAM 1 MG TABLET PO ×2 (09:12→21:21)
[2021-07-10] MEDS: Nicotine 14 MG PATCH.TD24 TRANSDERMA (09:12)
[2021-07-10] MEDS: 0.9 % Sodium Chloride Flush 3 ML SYRINGE IVFLUSH ×3 (09:13→21:21)
[2021-07-10] MEDS: Propranolol HCL 10 MG TABLET PO ×3 (10:42→21:21)
--- NOTE | 2021-07-10 11:23 | P.PNIM_ITS ---
Subjective Subjective Date of Service: 07/10/21 <LEANNA Massey - Last Filed: 07/10/21 11:30> 07/15/21 <Tom Ryan MD - Last Filed: 07/15/21 09:04> Interval History: seen and examined this morning follow up for EPS able to open mouth better, still tremulous intermittent urinary retention <LEANNA Massey - Last Filed: 07/10/21 11:30> Review of Systems Review of Systems: Yes all other systems are reviewed and are negative <LEANNA Massey - Last Filed: 07/10/21 11:30> Constitutional Constitutional: Denies chills and Denies fever(s) <LEANNA Massey - Last Filed: 07/10/21 11:30> Cardiovascular Cardiovascular: Denies chest pain <LEANNA Massey - Last Filed: 07/10/21 11:30> Respiratory Respiratory: Denies cough <LEANNA Massey - Last Filed: 07/10/21 11:30> Gastrointestinal Gastrointestinal: Denies abdominal pain <LEANNA Massey - Last Filed: 07/10/21 11:30> Physical Exam Vital Signs: Vital Signs: Last Vital Signs Temp 97.3 F 07/10/21 11:21 Pulse 66 07/10/21 11:21 Resp 18 07/10/21 11:21 BP 108/65 07/10/21 11:21 Pulse Ox 97 07/10/21 11:21 BMI result Body Mass Index 22.6 <LEANNA Massey - Last Filed: 07/10/21 11:30> Const: General: cooperative, no acute distress, alert and awake <LEANNA Massey - Last Filed: 07/10/21 11:30> Nutritional Appearance: well nourished <LEANNA Massey - Last Filed: 07/10/21 11:30> HENMT: Head: Yes normocephalic and Yes atraumatic <LEANNA Massey - Last Filed: 07/10/21 11:30> Eyes: General: appearance normal, both eyes and all related structures <LEANNA Massey - Last Filed: 07/10/21 11:30> Sclerae: sclerae normal <LEANNA Massey - Last Filed: 07/10/21 11:30> Pupils: Equal, round and reactive pupils present <LEANNA Massey - Last Filed: 07/10/21 11:30> Chest: Chest palpation & inspection: normal inspection of the chest <LEANNA Massey - Last Filed: 07/10/21 11:30> Resp: Effort & Inspection: normal respiratory effort and no respiratory distress <LEANNA Massey - Last Filed: 07/10/21 11:30> Auscultation: clear to auscultation bilaterally <LEANNA Massey - Last Filed: 07/10/21 11:30> Cardio: Rate: regular rate <LEANNA Massey - Last Filed: 07/10/21 11:30> Rhythm: regular rhythm <LEANNA Massey - Last Filed: 07/10/21 11:30> GI: Palpation (GI): Soft to palpation and nontender <LEANNA Massey - Last Filed: 07/10/21 11:30> Auscultation: normal bowel sounds <LEANNA Massey - Last Filed: 07/10/21 11:30> Skin: General skin exam: no rashes or lesions noted <LEANNA Massey - Last Filed: 07/10/21 11:30> Neuro: Cranial nerves: Yes Equal, round and reactive pupils present and Yes Bilaterally intact EOM present <LEANNA Massey - Last Filed: 07/10/21 11:30> Extrem: Other: able to move all four extremities spontaneously; tremulous RUE >LUE <LEANNA Massey - Last Filed: 07/10/21 11:30> General: Yes normal to inspection and Yes no pedal edema <LEANNA Massey - Last Filed: 07/10/21 11:30> Psych: Affect: Blunted affect present <LEANNA Massey - Last Filed: 07/10/21 11:30> Objective Data Active Medications Acetaminophen (Acetaminophen 325 Mg Tablet) 650 mg PO Q6H PRN PRN Reason: Pain, Mild (Pain Scale 1-3) Artificial Tears (Artificial Tears 15 Ml Drops) 2 drop EYE-BOTH Q4H PRN PRN Reason: dry eyes Benztropine Mesylate (Benztropine Mesylate 1 Mg Tablet) 1 mg PO BID [facility] Last Admin: 07/10/21 09:12 Dose: 1 mg Documented by: KARTHIK Benztropine Mesylate (Benztropine Mesylate 1 Mg Tablet) 1 mg PO DAILY PRN PRN Reason: akathesia Clonazepam (Clonazepam 1 Mg Tablet) 1 mg PO BID [facility] Last Admin: 07/10/21 09:12 Dose: 1 mg Documented by: KARTHIK Docusate Sodium (Docusate Sodium 100 Mg Capsule) 100 mg PO DAILY PRN PRN Reason: Constipation Enoxaparin Sodium (Enoxaparin Sodium 40 Mg/0.4 Ml Syringe) 40 mg SUBCUT Q24H [facility] Last Admin: 07/10/21 09:11 Dose: 40 mg Documented by: KARTHIK Lorazepam (Lorazepam 1 Mg Tablet) 1 mg PO DAILY PRN PRN Reason: Anxiety Nicotine (Nicotine 14 Mg Patch.Td24) 14 mg TRANSDERMA DAILY [facility] Last Admin: 07/10/21 09:12 Dose: 14 mg Documented by: KARTHIK Ondansetron HCl (Ondansetron Hcl 4 Mg/2 Ml Vial) 4 mg IVPUSH Q8H PRN PRN Reason: Nausea and Vomiting Pharmacy Consult (Consult Rx Perform Med Rec) 1 each MISCELLANE ONCE PRN PRN Reason: Consult order Propranolol HCl (Propranolol Hcl 10 Mg Tablet) 10 mg PO TID [facility]; Protocol Last Admin: 07/10/21 10:42 Dose: 10 mg Documented by: KARTHIK Sodium Chloride (0.9 % Sodium Chloride Flush 3 Ml Syringe) 3 ml IVFLUSH QSHIFT [facility] Last Admin: 07/10/21 09:13 Dose: 3 ml Documented by: KARTHIK <LEANNA Massey - Last Filed: 07/10/21 11:30> Labs CBC & Chem 7: : 07/12/21 05:13 07/12/21 05:13 <LEANNA Massey - Last Filed: 07/10/21 11:30> Labs: Laboratory Results - last 24 hr 07/10/21 07/10/21 05:44 05:44 MCV 91.9 MCH 31.4 MCHC 34.2 RDW 11.6 Plt Count 201 MPV 9.2 L Immature Gran % (Auto) 0.1 Neut % (Auto) 55.1 Lymph % (Auto) 33.8 [place] % (Auto) 7.2 Eos % (Auto) 3.1 Baso % (Auto) 0.7 Lymph # (Auto) 2.3 [place] # (Auto) 0.5 Eos # (Auto) 0.2 Baso # (Auto) 0.1 Abs Immat Gran (auto) 0.01 Absolute Neuts (auto) 3.8 Absolute Nucleated RBC 0.000 Nucleated RBC % (auto) 0.0 Anion Gap 12 Estim Creat Clear Calc 131.6 Estimated GFR > 60 Random Glucose 94 Calcium 9.0 Iron 103 TIBC 312 % Saturation 33 Unsat Iron Binding 209 Ferritin 159 <LEANNA Massey - Last Filed: 07/10/21 11:30> Assessment and Plan (1) Urinary retention: Status: Acute <LEANNA Massey - Last Filed: 07/10/21 11:30> (2) Schizoaffective disorder, bipolar type: Status: Acute <LEANNA Massey - Last Filed: 07/10/21 11:30> (3) Dystonia: Status: Acute <LEANNA Massey - Last Filed: 07/10/21 11:30> (4) Extrapyramidal symptom: Status: Acute <LEANNA Massey - Last Filed: 07/10/21 11:30> (5) Schizoaffective disorder: Status: Acute <LEANNA Massey - Last Filed: 07/10/21 11:30> Assessment and Plan: This is a 26-year-old male with past medical history of schizoaffective disorder who presented from longterm with extrapyramidal symptoms EPS/dystonia secondary to antipsychotics. still with persistant symptoms - olanzapine and fluphenazine on hold since admission - continue Klonopin, propranolol - continue cogentin at lower dose - psychiatry following for ongoing need for med adjustment - seen by neuro, ?did not find any tone abnormality or dystonic movements and felt that movement disorder was psychogenic and related to anxiety schizoaffective disorder requesting 1:1 sitter for safety psych following urinary retention likely from cogentin intermittent urinary retention bladder scan with prn straight cath consider flomax if no improvement dysphagia result of EPS seen by speech, rec full liquid diet, strict aspiration precautions and 1:1 assist with feeding DVT prophylaxis: Brendan attending: dr. ryan dispo: likely to inpatient psych, can NOT leave AMA per psych. PT eval pending <LEANNA Massey - Last Filed: 07/10/21 11:30> Quality Stroke Does the patient have a stroke diagnosis?: No <LEANNA Massey - Last Filed: 07/10/21 11:30> VTE Prior VTE?: No <LEANNA Massey - Last Filed: 07/10/21 11:30> VTE Risk Level:: Medical - moderate - high <LEANNA Massey - Last Filed: 07/10/21 11:30> VTE Device Contraindication: Treatment Not Indicated <LEANNA Massey - Last Filed: 07/10/21 11:30> VTE Drug Contraindication: N/A - Med Ordered <LEANNA Massey - Last Filed: 07/10/21 11:30>
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
--- NOTE | 2021-07-10 15:46 | MHC.CM.PN ---
PATIENT STILL 1:1 FEED AND WITH URINARY RETENTION. NO PLAN FOR MEDICAL DC TODAY
--- NOTE | 2021-07-10 18:31 | PC.NURSE ---
11:19am pt bladder scan >999. Attempted to have pt stand to use urinal and sit on commode. Pt unable to void. Miesha Montgomery notified via tiger text. Order received to straight cath. Pt straight cath for 800mL clear yellow urine. Around 4pm, pt was back on the commode, voided but unable to measure as pt overshot urine unto floor. Large amount of urine on the floor. DTV #2 at 2200.
[2021-07-11] VITALS (8 sets, daily range): BP systolic 101–132; BP diastolic 56–65; PULSE 61–81; RESP 15–18; TEMP 36.4–36.8; O2SAT 96–98
[2021-07-11] MEDS: Benztropine Mesylate 1 MG TABLET PO ×2 (09:21→20:35)
[2021-07-11] MEDS: clonazePAM 1 MG TABLET PO (09:22)
[2021-07-11] MEDS: Propranolol HCL 10 MG TABLET PO ×3 (09:24→20:35)
[2021-07-11] MEDS: Enoxaparin Sodium 40 MG/0.4 ML SYRINGE SUBCUT (09:25)
[2021-07-11] MEDS: Nicotine 14 MG PATCH.TD24 TRANSDERMA (09:26)
[2021-07-11] MEDS: 0.9 % Sodium Chloride Flush 3 ML SYRINGE IVFLUSH ×3 (09:33→20:36)
--- NOTE | 2021-07-11 11:40 | MHC.SL.SWA ---
Speech Pathologist Impression: Risk of Aspiration Oralpharyngeal Dysphagia Risk of Aspiration Due to: Neurological Condition Dysphasia Diet Status: Upgrade Liquid Consistency and Strategies for Safe Swallow: Liquid Intake Recommendation: Thin Liquid Intake Strategies: Small Sips Solid Food Consistency: Dietary Recommendations: Pureed (NDD1) Additional Modifications to Solid Foods: Patient presents with severe oropharyngeal phase dysphagia, characterized by: reduced strength and ROM of oral structures, delayed AP transport, incomplete laryngeal elevation, and delayed swallow. Patient seen for bedside dysphagia evaluation on 07/08/21 and recommended patient to remain on full liquid diet. Patient re-evaluated this date 07/11-He is appropriate for upgrade to PUREED (NDD1) solids and THIN liquids. Patient drank cup of water by straw with no overt s/s of aspiration. When given pudding by tsp, no overt s/s of aspiration, but note delayed AP transport and multiple swallow attempts. Patient requires 1:1 assistance for ALL PO intake. NETBACKUP ENGINEER will continue to follow. Oral Medication Intake: Crushed with Puree Compensatory Strategies and Precautions to be Taken for Safe Swallow: Sitting Upright (90 deg) Small Bites and Sips Alternate Liquids/Solids Rate of Ingestion Change Oral Check Supervision While Eating and Drinking for Safe Swallow: Total Assistance Swallowing Recommended Treatments: Compens. Strategy Educat. Recommendation for Speech: Inpatient Speech Therapy Inspector Wreath Clinican/Clinical Fellow: Yes: Yane Gonsalves Supervisory Statement: I have reviewed and agree with the student/clinical fellow's documentation: Yes Speech Language Pathologist: Angelica Claire M.A., [facility]-NETBACKUP ENGINEER
--- NOTE | 2021-07-11 11:46 | P.PNIM_ITS ---
Subjective Subjective Date of Service: 07/11/21 Review of Systems Follow up for EPS able to open mouth better, still tremulous to right hand mostly intermittent urinary retention resting in bed Physical Exam Vital Signs: Vital Signs: Last Vital Signs Temp 97.5 F 07/11/21 03:35 Pulse 81 07/11/21 07:44 Resp 18 07/11/21 07:44 BP 106/59 L 07/11/21 07:44 Pulse Ox 98 07/11/21 07:44 BMI result Body Mass Index 22.6 Appearing in no acute distress lung sounds are clear to auscultation heart regular rate rhythm, clear S1, S2 positive bowel sounds, abdomen is soft, nontender neuro patient is alert x3, no focal deficits Right hand tremor Objective Data Active Medications Acetaminophen (Acetaminophen 325 Mg Tablet) 650 mg PO Q6H PRN PRN Reason: Pain, Mild (Pain Scale 1-3) Artificial Tears (Artificial Tears 15 Ml Drops) 2 drop EYE-BOTH Q4H PRN PRN Reason: dry eyes Benztropine Mesylate (Benztropine Mesylate 1 Mg Tablet) 1 mg PO BID [facility] Last Admin: 07/11/21 09:21 Dose: 1 mg Documented by: MIKAELA Benztropine Mesylate (Benztropine Mesylate 1 Mg Tablet) 1 mg PO DAILY PRN PRN Reason: akathesia Clonazepam (Clonazepam 1 Mg Tablet) 1 mg PO BID [facility] Last Admin: 07/11/21 09:22 Dose: 1 mg Documented by: MIKAELA Docusate Sodium (Docusate Sodium 100 Mg Capsule) 100 mg PO DAILY PRN PRN Reason: Constipation Enoxaparin Sodium (Enoxaparin Sodium 40 Mg/0.4 Ml Syringe) 40 mg SUBCUT Q24H [facility] Last Admin: 07/11/21 09:25 Dose: 40 mg Documented by: MIKAELA Lorazepam (Lorazepam 1 Mg Tablet) 1 mg PO DAILY PRN PRN Reason: Anxiety Nicotine (Nicotine 14 Mg Patch.Td24) 14 mg TRANSDERMA DAILY [facility] Last Admin: 07/11/21 09:26 Dose: 14 mg Documented by: MIKAELA Ondansetron HCl (Ondansetron Hcl 4 Mg/2 Ml Vial) 4 mg IVPUSH Q8H PRN PRN Reason: Nausea and Vomiting Pharmacy Consult (Consult Rx Perform Med Rec) 1 each MISCELLANE ONCE PRN PRN Reason: Consult order Propranolol HCl (Propranolol Hcl 10 Mg Tablet) 10 mg PO TID [facility]; Protocol Last Admin: 07/11/21 09:24 Dose: 10 mg Documented by: MIAKELA Sodium Chloride (0.9 % Sodium Chloride Flush 3 Ml Syringe) 3 ml IVFLUSH QSHIFT [facility] Last Admin: 07/11/21 09:33 Dose: 3 ml Documented by: MIKAELA Labs CBC & Chem 7: 07/10/21 05:44 07/10/21 05:44 Assessment and Plan (1) Urinary retention: Status: Acute (2) Schizoaffective disorder, bipolar type: Status: Acute (3) Dystonia: Status: Acute Assessment and Plan: This is a 26-year-old male with past medical history of schizoaffective disorder who presented from senior care with extrapyramidal symptoms EPS/dystonia secondary to antipsychotics. still with persistant symptoms olanzapine and fluphenazine on hold since admission continue Klonopin, propranolol, continue cogentin at lower dose psychiatry following for ongoing need for med adjustment seen by neuro, did not find any tone abnormality or dystonic movements and felt that movement disorder was psychogenic and related to anxiety Seen by PT/OT, OOB walking with therapy schizoaffective disorder requesting 1:1 sitter for safety psych following urinary retention likely from cogentin intermittent urinary retention bladder scan with prn straight cath consider flomax if no improvement dysphagia result of EPS seen by speech advance to puree diet and thin liquids DVT prophylaxis:? Loveankitx attending Dr. Neely dispo: likely to inpatient psych, can NOT leave AMA per psych. PT eval pending Quality Stroke Does the patient have a stroke diagnosis?: No VTE Prior VTE?: No VTE Risk Level:: Medical - moderate - high VTE Device Contraindication: Treatment Not Indicated VTE Drug Contraindication: N/A - Med Ordered
--- NOTE | 2021-07-11 11:57 | MHC.CLN ---
NUTRITION SEEN BY RESEARCHER AND DIET UPGRADED FROM FULL LIQUID TO PUREE CONSISTENCY. ADDING ENSURE TID TO PROVIDE ADDITIONAL 1050 KCAL, 39 G PROTEIN. APPEARS TO BE EATING 75-100% AT MEALS. REQUIRES 1:1 ASSISTANCE.
--- NOTE | 2021-07-11 12:20 | P.PNPSI_ITS ---
Subjective Subjective Date of Service: 07/11/21 Reason For Visit: Dystonia Interim History: Follow up consult Pt seen with Ashleigh Esquivel APRN who was consulted and assessed patient o jessica previous weekend. Pt is A/O x4; he denies any SI/HI or AVH. He knows where he is and why he's here and asked questions about his condition. Patient said that he received 2 injections prior to his admission, 1 in each arm; he thinks they were both Prolixin. Patient is currently with 1:1 and he cannot attend any ADL's without full assistance. Patient can hardly move on his own and has a fixed stare; his speech is soft, low and a slow mumble although he can articulate himself. Patient cannot feed or drink by himself; he cannot toilet himself; patient cannot roll over in bed by himself, stand or walk by himself; once up and standing, he can only shuffle his his feet, cannot pivot or turn or maintain balance. Focused neurological exam: Cogwheeling present in bilateral arms at the elbow and bilateral legs at the knee Strength 4/5 bilaterally throughout CN 7 impaired: pt could only minimally raise eyebrows, minimally smile; could not frown otherwise, CN2-12 grossly intact -urinary retention has resolved -reportedly swallow eval completed today and patient has full function Mental Status Exam Mental Status Exam Narrative: Pt is alert and oriented x4; behavior is cooperative; dressed in hospital gown; pt is worried that about his condition; Affect fixed and flat; eye contact mostly with fixed stare; Speech low, soft and mumbled; pt does not move himself on the bed; thought process seems organized and goal directed; Thought content is on tx; he denies SI/HI or AVH; no delusional/paranoid thoughts expressed. Patients insight and judgment appear intact. Diagnostics Vital Signs (24Hr): Vital Signs - 24 hr 07/10/21 14:53 07/10/21 14:55 07/10/21 15:27 Temperature 97.2 F 98.1 F Pulse Rate 72 72 74 Respiratory Rate 16 18 Blood Pressure 123/72 123/72 131/84 Pulse Oximetry 99 98 07/10/21 19:15 07/10/21 21:21 07/11/21 03:35 Temperature 98.7 F 97.5 F Pulse Rate 67 67 61 Respiratory Rate 18 18 Blood Pressure 122/63 122/63 101/59 L Pulse Oximetry 98 98 07/11/21 04:00 07/11/21 07:44 Temperature Pulse Rate 81 Respiratory Rate 18 18 Blood Pressure 106/59 L Pulse Oximetry 98 BMI result Body Mass Index 22.6 Labs Results: 07/12/21 05:13 07/12/21 05:13 Labs: Laboratory Results - last 48 hr 07/10/21 07/10/21 05:44 05:44 WBC 6.8 RBC 4.55 L Hgb 14.3 Hct 41.8 L MCV 91.9 MCH 31.4 MCHC 34.2 RDW 11.6 Plt Count 201 MPV 9.2 L Immature Gran % (Auto) 0.1 Neut % (Auto) 55.1 Lymph % (Auto) 33.8 Jasper % (Auto) 7.2 Eos % (Auto) 3.1 Baso % (Auto) 0.7 Lymph # (Auto) 2.3 [place]asper # (Auto) 0.5 Eos # (Auto) 0.2 Baso # (Auto) 0.1 Abs Immat Gran (auto) 0.01 Absolute Neuts (auto) 3.8 Absolute Nucleated RBC 0.000 Nucleated RBC % (auto) 0.0 Sodium 139 Potassium 4.3 Chloride 104 Carbon Dioxide 27 Anion Gap 12 BUN 13 Creatinine 0.99 Estim Creat Clear Calc 131.6 Estimated GFR > 60 Random Glucose 94 Calcium 9.0 Iron 103 TIBC 312 % Saturation 33 Unsat Iron Binding 209 Ferritin 159 Imaging Radiology Impressions: ITS Impressions Head CT 07/06/21 16:03 IMPRESSION: No acute intracranial pathology. Medications Medications Current Medications Acetaminophen (Acetaminophen 325 Mg Tablet) 650 mg PO Q6H PRN PRN Reason: Pain, Mild (Pain Scale 1-3) Artificial Tears (Artificial Tears 15 Ml Drops) 2 drop EYE-BOTH Q4H PRN PRN Reason: dry eyes Benztropine Mesylate (Benztropine Mesylate 1 Mg Tablet) 1 mg PO BID [facility] Last Admin: 07/11/21 09:21 Dose: 1 mg Documented by: Benztropine Mesylate (Benztropine Mesylate 1 Mg Tablet) 1 mg PO DAILY PRN PRN Reason: akathesia Clonazepam (Clonazepam 1 Mg Tablet) 1 mg PO BID [facility] Last Admin: 07/11/21 09:22 Dose: 1 mg Documented by: Docusate Sodium (Docusate Sodium 100 Mg Capsule) 100 mg PO DAILY PRN PRN Reason: Constipation Enoxaparin Sodium (Enoxaparin Sodium 40 Mg/0.4 Ml Syringe) 40 mg SUBCUT Q24H [facility] Last Admin: 07/11/21 09:25 Dose: 40 mg Documented by: Lorazepam (Lorazepam 1 Mg Tablet) 1 mg PO DAILY PRN PRN Reason: Anxiety Nicotine (Nicotine 14 Mg Patch.Td24) 14 mg TRANSDERMA DAILY [facility] Last Admin: 07/11/21 09:26 Dose: 14 mg Documented by: Ondansetron HCl (Ondansetron Hcl 4 Mg/2 Ml Vial) 4 mg IVPUSH Q8H PRN PRN Reason: Nausea and Vomiting Pharmacy Consult (Consult Rx Perform Med Rec) 1 each MISCELLANE ONCE PRN PRN Reason: Consult order Propranolol HCl (Propranolol Hcl 10 Mg Tablet) 10 mg PO TID [facility]; Protocol Last Admin: 07/11/21 09:24 Dose: 10 mg Documented by: Sodium Chloride (0.9 % Sodium Chloride Flush 3 Ml Syringe) 3 ml IVFLUSH QSHIFT [facility] Last Admin: 07/11/21 09:33 Dose: 3 ml Documented by: Allergies Allergies Allergy/AdvReac Type Severity Reaction Status Date / Time diphenhydramine Allergy Unknown unknown Verified 10/12/20 04:33 [From BENADRYL] haloperidol [From HALDOL] Allergy Unknown unknown Verified 10/12/20 04:33 paliperidone AdvReac Severe dystonia Verified 03/30/21 23:47 Assessment & Plan Assessment & Plan (1) Urinary retention: Status: Acute Code(s): R33.9 - Retention of urine, unspecified (2) Schizoaffective disorder, bipolar type: Status: Acute Code(s): F25.0 - Schizoaffective disorder, bipolar type (3) Dystonia: Status: Acute Code(s): G24.9 - Dystonia, unspecified Assessment and Plan: This is a 26-year-old male with past medical history of schizoaffective disorder who presented from long term with extrapyramidal symptoms Patient presents with EPS/dystonic symptoms secondary to what sounds like receiving high dose of Prolixin Decanoate. Focused exam reveals call grilling bilateral arms and bilateral legs; cranial nerves 7 dysfunction; patient has considerable trouble moving his body on his own and currently requires an assist for all ADLs. Trial Judge and Dr. Jerez both examined patient and agree this appears to be medication related and not psychogenic. Have reached out to Neur ology to discuss case together and will follow-up. Currently patient denies any SI/HI/AVH and is thinking linear and logically; is not expressed any paranoid or delusional ideations. Agree with continuing one-to-one sitter for now EPS/dystonia secondary to antipsychotics. still with persistant symptoms olanzapine and fluphenazine on hold since admission -schedule ativan 1mg TID -leave Clonazepam as prn -otherwise, continue propranolol, continue cogentin at lower dose -reviewed note by neuro dr. Tidwell who reports no tone abnormality or dystonic movements and felt that movement disorder was psychogenic and related to anxiety -Trial Judge and Dr. Jerez examined patient and have different findings; contacted Dr. Tidwell who has signed out to Dr. Link who was not available today to discuss case; will follow up -PT/OT, OOB Daily (discussed with hospitalist who agrees) -Rotate patient to avoid pressure ulcers schizoaffective disorder -patient denies any SI/HI/AVH and has not expressed any paranoid/delusional ideations; thought process is linear and goal directed. urinary retention: seems to have resolved likely from cogentin intermittent urinary retention bladder scan with prn straight cath consider flomax if no improvement dysphagia: swallow eval reportedly completed and pt reportedly has full function result of EPS seen by speech advance to puree diet and thin liquids DVT prophylaxis:? Lovenox attending Dr. Neely dispo: likely to inpatient psych, can NOT leave AMA per psych. PT eval pending I spent minutes with the patient and/or on the patient floor today, greater than?50% of which was spent counseling/coordinating care. Reason for contiued inpatient stay Substantial Risk for: inability to function
--- NOTE | 2021-07-11 14:16 | MHC.CM.PN ---
EMR REVIEWED, PT SEEN BY PSYCH AND PT TODAY, SPEECH HAS ADVANCED PT'S DIET AND PT WILL NEED OT EVAL PRIOR TO DETERMINING FINAL D/C PLAN, CM WILL CONT TO FOLLOW D/C NEEDS.
--- NOTE | 2021-07-11 14:42 | MHC.CARE ---
Please refer Pt to CARE Team when Pt is medically cleared and appropriate for discharge. Plan for psychiatry to see Pt on an ongoing basis while awaiting medical clearance.
[2021-07-11] MEDS: LORazepam 1 MG TABLET PO (20:35)
[2021-07-12] VITALS (8 sets, daily range): BP systolic 105–125; BP diastolic 53–62; PULSE 61–91; RESP 14–18; TEMP 36.4–37.1; O2SAT 95–99
[2021-07-12 06:08] LABS: Hematocrit 43.2 % (42.0-52.0); Hemoglobin 14.8 g/dl (14.0-18.0); Mean Corpuscular HGB Conc 34.3 g/dl (31.0-36.0); Mean Corpuscular Hemoglobin 31.2 pg (27.0-33.0); Mean Corpuscular Volume 90.9 fL (80.0-98.0); Mean Platelet Volume 9.5 fL (9.4-12.4); Platelet Count 209 X10*3/uL (160-400); Red Blood Count 4.75 X10*6/uL (4.60-5.80); Red Cell Distribution Width 11.2 % (11.0-16.0); White Blood Count 9.9 X10*3/uL (4.8-10.8)
[2021-07-12 06:30] LABS: Anion Gap 11 (12-20); Blood Urea Nitrogen 12 mg/dL (9-16); Calcium 9.2 mg/dL (8.4-10.2); Carbon Dioxide 27 mmol/L (22-29); Chloride 107 mmol/L (96-108); Creatinine Clr Calc Pharmacy 140.1; Estimated Glomerular Filt Rate > 60; Glucose Random 111 mg/dL (60-115); Potassium 4.3 mmol/L (3.3-5.1); Sodium 141 mmol/L (135-145)
[2021-07-12] MEDS: Enoxaparin Sodium 40 MG/0.4 ML SYRINGE SUBCUT (09:07)
[2021-07-12] MEDS: Propranolol HCL 10 MG TABLET PO ×3 (09:07→20:33)
[2021-07-12] MEDS: 0.9 % Sodium Chloride Flush 3 ML SYRINGE IVFLUSH ×3 (09:07→20:40)
[2021-07-12] MEDS: Benztropine Mesylate 1 MG TABLET PO ×2 (09:07→20:33)
[2021-07-12] MEDS: LORazepam 1 MG TABLET PO ×3 (09:07→20:33)
[2021-07-12] MEDS: Nicotine 14 MG PATCH.TD24 TRANSDERMA (09:08)
--- NOTE | 2021-07-12 10:10 | HO.PM.IMPN ---
Subjective Subjective Date of Service: 07/12/21 Review of Systems Follow up EPS still with tremors to right hand and some difficulty with ambulation, dystemtria OOB with PT Physical Exam Vital Signs: Vital Signs: Last Vital Signs Temp 98.3 F 07/12/21 07:47 Pulse 68 07/12/21 09:07 Resp 18 07/12/21 07:47 BP 118/57 L 07/12/21 09:07 Pulse Ox 99 07/12/21 07:47 BMI result Body Mass Index 22.6 right arm tremor lung sounds are clear to auscultation heart regular rate rhythm, clear S1, S2 positive bowel sounds, abdomen is soft, nontender neuro patient is alert, flat affect Objective Data Active Medications Acetaminophen (Acetaminophen 325 Mg Tablet) 650 mg PO Q6H PRN PRN Reason: Pain, Mild (Pain Scale 1-3) Artificial Tears (Artificial Tears 15 Ml Drops) 2 drop EYE-BOTH Q4H PRN PRN Reason: dry eyes Benztropine Mesylate (Benztropine Mesylate 1 Mg Tablet) 1 mg PO BID [facility] Last Admin: 07/12/21 09:07 Dose: 1 mg Documented by: DONTE Benztropine Mesylate (Benztropine Mesylate 1 Mg Tablet) 1 mg PO DAILY PRN PRN Reason: akathesia Clonazepam (Clonazepam 1 Mg Tablet) 1 mg PO BID PRN PRN Reason: anxiety Docusate Sodium (Docusate Sodium 100 Mg Capsule) 100 mg PO DAILY PRN PRN Reason: Constipation Enoxaparin Sodium (Enoxaparin Sodium 40 Mg/0.4 Ml Syringe) 40 mg SUBCUT Q24H [facility] Last Admin: 07/12/21 09:07 Dose: 40 mg Documented by: DONTE Lorazepam (Lorazepam 1 Mg Tablet) 1 mg PO TID [facility] Last Admin: 07/12/21 09:07 Dose: 1 mg Documented by: DONTE Nicotine (Nicotine 14 Mg Patch.Td24) 14 mg TRANSDERMA DAILY [facility] Last Admin: 07/12/21 09:08 Dose: 14 mg Documented by: DONTE Ondansetron HCl (Ondansetron Hcl 4 Mg/2 Ml Vial) 4 mg IVPUSH Q8H PRN PRN Reason: Nausea and Vomiting Pharmacy Consult (Consult Rx Perform Med Rec) 1 each MISCELLANE ONCE PRN PRN Reason: Consult order Propranolol HCl (Propranolol Hcl 10 Mg Tablet) 10 mg PO TID [facility]; Protocol Last Admin: 07/12/21 09:07 Dose: 10 mg Documented by: DONTE Sodium Chloride (0.9 % Sodium Chloride Flush 3 Ml Syringe) 3 ml IVFLUSH QSHIFT [facility] Last Admin: 07/12/21 09:07 Dose: 3 ml Documented by: DONTE Labs CBC & Chem 7: 07/12/21 05:13 07/12/21 05:13 Labs: Laboratory Results - last 24 hr 07/12/21 07/12/21 05:13 05:13 MCV 90.9 MCH 31.2 MCHC 34.3 RDW 11.2 Plt Count 209 MPV 9.5 Absolute Nucleated RBC 0.000 Nucleated RBC % (auto) 0.0 Anion Gap 11 L Estim Creat Clear Calc 140.1 Estimated GFR > 60 Random Glucose 111 Calcium 9.2 Assessment and Plan (1) Schizoaffective disorder, bipolar type: Status: Acute (2) Extrapyramidal symptom: Status: Acute Assessment and Plan: This is a 26-year-old male with past medical history of schizoaffective disorder who presented from half-way with extrapyramidal symptoms EPS/dystonia/Tardive dyskinesia secondary to antipsychotics. still with persistant symptoms olanzapine and fluphenazine on hold since admission continue Klonopin, propranolol, continue cogentin at lower dose psychiatry following for ongoing need for med adjustment seen by neuro, did not find any tone abnormality or dystonic movements and felt that movement disorder was psychogenic and related to anxiety Seen by PT/OT, OOB walking with therapy, OOB to chair schizoaffective disorder requesting 1:1 sitter for safety psych following urinary retention likely from cogentin intermittent urinary retention bladder scan with prn straight cath consider flomax if no improvement dysphagia result of EPS seen by speech advance to puree diet and thin liquids DISPO continue on medical team until able to do ADL's DVT prophylaxis:? Lovenox attending Dr. Neely dispo: likely to inpatient psych, can NOT leave AMA per psych. PT eval pending Quality Stroke Does the patient have a stroke diagnosis?: No VTE Prior VTE?: No VTE Risk Level:: Medical - moderate - high VTE Device Contraindication: Treatment Not Indicated VTE Drug Contraindication: N/A - Med Ordered
--- NOTE | 2021-07-12 12:25 | MHC.CM.PN ---
Addendum entered by Paty Yee RN 07/12/21 16:46: REFERRALS PLACED TO STR PT IS BEING RECOMMENDED STR AND NOT ACUTE REHAB. Original Note: EMR REVIEWED, PER HOSPITALIST & PT PATIENT HAS IMPROVED SINCE YESTERDAY,ANTIC POSSIBILITY PT WILL REMAIN INPT UNTIL IMPROVES ENOUGH TO RETURN TO INPT PSYCH, OT EVAL PENDING, AFTER MULTIPLE ATTEMPTS THIS CM WAS ABLE TO CONTACT RN FROM [facility] TO INQUIRE ABOUT A REHAB UNIT FOR PSYCH PTS AT 12:15PM [phone]. RN VERIFIED THERE IS NO SUCH UNIT AT [place]. CM WILL PLACE REFERRALS TO ACUTE REHAB/STR'S.
--- NOTE | 2021-07-12 15:10 | MHC.SL.SWA ---
Speech Pathologist Impression: Risk of Aspiration Oralpharyngeal Dysphagia Risk of Aspiration Due to: Neurological Condition Dysphasia Diet Status: No Change Liquid Consistency and Strategies for Safe Swallow: Liquid Intake Recommendation: Thin Liquid Intake Strategies: Small Sips Solid Food Consistency: Dietary Recommendations: Pureed (NDD1) Additional Modifications to Solid Foods: Alternate liquids and solids, check for oral clearance of bolus before presenting more food. Encourage double swallow on puree. Oral Medication Intake: Crushed with Puree Compensatory Strategies and Precautions to be Taken for Safe Swallow: Sitting Upright (90 deg) Double Swallow Small Bites and Sips Alternate Liquids/Solids Rate of Ingestion Change Oral Check Supervision While Eating and Drinking for Safe Swallow: Total Assistance Foods to Avoid: Swallowing Recommended Treatments: Compens. Strategy Educat. Recommendation for Speech: Inpatient Speech Therapy Comment: Patient is a 26 year old male with history of schizoaffective disorder, anxiety, and depression. He is admitted for extrapyramidal symptom, acute dystonic reaction d/t drugs, dystonia. Per ED note 07/07/21, patient was unable to feed himself d/t muscle contraction, cogwheeling, and also has been walking with severe ataxia and unsteady gait. It is also documented patient has difficulty with jaw movement and swallowing, presents with tongue fasciculations. Head CT showed no acute intracranial pathology. On evaluation 07/11, Patient presents with severe oropharyngeal phase dysphagia, characterized by: reduced strength and ROM of oral structures, delayed AP transport, incomplete laryngeal elevation, and delayed swallow. Diet was upgraded to PUREE (NDD1) with THIN LIQUIDS, Pills crushed in puree. On 07/12:Pt seen this am soon after Nurse's Aid had completed breakfast. Pt had taken a variety of purees this morning including pureed fruit, yogurt and cream of wheat cereal. Pt had refused eggs which were still on tray, and Nurse's aid had refrained from giving some chopped fruit (peaches) which had come with his tray (wrong consistency). Pt declined taking more puree as trial with HEALTHCARE SOCIAL WORKER as he had finished eating. Pt requested liquid diet, and was given explanation regarding upgrade to puree, and shown the variety of foods he had eaten this a.m. Pt requested assistance with nutritional shake, which he took by straw sip. On this liquid by straw, Pt had good labial closure and produced adequate suction/pressure to drink with straw. Pt notably contained liquid bolus in mouth for seconds, then propelled bolus for swallow. On swallow, Pt produced laryngeal elevation mildly decreased. No overt s/s of aspiration with multiple sips of thin liquid. Patient tolerating PUREED (NDD1) well. Recommend continue on current diet of PUREED (NDD1) solids and THIN liquids. Engineering Manager Electronics Clinican/Clinical Fellow: No Supervisory Statement: I have reviewed and agree with the student/clinical fellow's documentation: N/A Speech Language Pathologist: Paty Harris M.A., CCC-HEALTHCARE SOCIAL WORKER
[2021-07-12] MEDS: amantadine HCL 100 MG CAPSULE PO (20:32)
[2021-07-13] VITALS (8 sets, daily range): BP systolic 104–130; BP diastolic 56–72; PULSE 70–92; RESP 15–17; TEMP 36–37.1; O2SAT 94–99
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
--- NOTE | 2021-07-13 08:28 | MHC.CM.PN ---
Addendum entered by Paty Yee RN 07/13/21 08:37: CM REVIEWED OT [facility] WHO RECOMMEND ACUTE REHAB, CM HAS SENT REFERRALS TO ALL 3 LOCAL ACUTE REHABS. Original Note: CM RECEIVED MESSAGE VIA [facility] FROM [facility] AND [facility] REPORTING THEY DO NOT HAVE BED AVAILABILITY FOR PT.
[2021-07-13] MEDS: Enoxaparin Sodium 40 MG/0.4 ML SYRINGE SUBCUT (09:08)
[2021-07-13] MEDS: Nicotine 14 MG PATCH.TD24 TRANSDERMA (09:08)
[2021-07-13] MEDS: LORazepam 1 MG TABLET PO ×3 (09:09→19:52)
[2021-07-13] MEDS: Benztropine Mesylate 1 MG TABLET PO ×2 (09:09→19:51)
[2021-07-13] MEDS: Propranolol HCL 10 MG TABLET PO ×3 (09:09→19:51)
[2021-07-13] MEDS: 0.9 % Sodium Chloride Flush 3 ML SYRINGE IVFLUSH ×3 (09:10→19:56)
--- NOTE | 2021-07-13 09:17 | HO.PM.IMPN ---
Subjective Subjective Date of Service: 07/13/21 Interval History: seen and examined this AM ambulating with PT on the floor, appearing to be improving seen later in his room with RUE tremors reports eating difficulty slowly improving Review of Systems negative except HPI Physical Exam Vital Signs: Vital Signs: Last Vital Signs Temp 97.7 F 07/13/21 07:34 Pulse 82 07/13/21 07:34 Resp 15 07/13/21 07:34 BP 122/69 07/13/21 07:34 Pulse Ox 98 07/13/21 07:34 BMI result Body Mass Index 22.6 Const: Other: General - no acute distress, appears comfortable Cardiovascular - regular rate and rhythm, S1-S2 Lungs - normal respiratory effort, clear to auscultation bilaterally, no wheezing Abdomen - soft, nontender, no rebound or guarding Extremities - no edema bilaterally Neuro - ambulated in the zheng way; RUE tremors Objective Data Active Medications Acetaminophen (Acetaminophen 325 Mg Tablet) 650 mg PO Q6H PRN PRN Reason: Pain, Mild (Pain Scale 1-3) Amantadine HCl (Amantadine Hcl 100 Mg Capsule) 100 mg PO BEDTIME [facility] Last Admin: 07/12/21 20:32 Dose: 100 mg Documented by: KERRI Artificial Tears (Artificial Tears 15 Ml Drops) 2 drop EYE-BOTH Q4H PRN PRN Reason: dry eyes Benztropine Mesylate (Benztropine Mesylate 1 Mg Tablet) 1 mg PO BID [facility] Last Admin: 07/12/21 20:33 Dose: 1 mg Documented by: KERRI Benztropine Mesylate (Benztropine Mesylate 1 Mg Tablet) 1 mg PO DAILY PRN PRN Reason: akathesia Last Admin: 07/13/21 09:09 Dose: 1 mg Documented by: RIANA Clonazepam (Clonazepam 1 Mg Tablet) 1 mg PO BID PRN PRN Reason: anxiety Docusate Sodium (Docusate Sodium 100 Mg Capsule) 100 mg PO DAILY PRN PRN Reason: Constipation Enoxaparin Sodium (Enoxaparin Sodium 40 Mg/0.4 Ml Syringe) 40 mg SUBCUT Q24H [facility] Last Admin: 07/13/21 09:08 Dose: 40 mg Documented by: RIANA Lorazepam (Lorazepam 1 Mg Tablet) 1 mg PO TID [facility] Last Admin: 07/13/21 09:09 Dose: 1 mg Documented by: RIANA Nicotine (Nicotine 14 Mg Patch.Td24) 14 mg TRANSDERMA DAILY [facility] Last Admin: 07/13/21 09:08 Dose: 14 mg Documented by: RIANA Ondansetron HCl (Ondansetron Hcl 4 Mg/2 Ml Vial) 4 mg IVPUSH Q8H PRN PRN Reason: Nausea and Vomiting Pharmacy Consult (Consult Rx Perform Med Rec) 1 each MISCELLANE ONCE PRN PRN Reason: Consult order Propranolol HCl (Propranolol Hcl 10 Mg Tablet) 10 mg PO TID [facility]; Protocol Last Admin: 07/13/21 09:09 Dose: 10 mg Documented by: RIANA Sodium Chloride (0.9 % Sodium Chloride Flush 3 Ml Syringe) 3 ml IVFLUSH QSHIFT [facility] Last Admin: 07/13/21 09:10 Dose: 3 ml Documented by: RIANA Labs CBC & Chem 7: 07/12/21 05:13 07/12/21 05:13 Labs: Laboratory Results - last 24 hr 07/12/21 05:13 Total Creatine Kinase 102 D Assessment and Plan (1) Extrapyramidal symptom: Status: Acute Assessment and Plan: This is a 26-year-old male with past medical history of schizoaffective disorder who presented from intermediate with extrapyramidal symptoms EPS/dystonia/Tardive dyskinesia secondary to antipsychotics appears to be slowly improving olanzapine and fluphenazine on hold since admission continue Klonopin, propranolol, continue cogentin -- at doses recommended by psych seen by neuro -- see their note Seen by PT/OT, OOB walking with therapy, OOB to chair schizoaffective disorder psych following urinary retention likely from cogentin intermittent urinary retention bladder scan with prn straight cath consider flomax if no improvement dysphagia result of EPS seen by speech advance to puree diet and thin liquids Full Code DVT pptx, Lovenox Quality Stroke Does the patient have a stroke diagnosis?: No VTE Prior VTE?: No VTE Risk Level:: Medical - moderate - high VTE Device Contraindication: Treatment Not Indicated VTE Drug Contraindication: N/A - Med Ordered
--- NOTE | 2021-07-13 11:39 | MHC.SL.SWA ---
Speech Pathologist Impression: Risk of Aspiration Oralpharyngeal Dysphagia Risk of Aspiration Due to: Neurological Condition Dysphasia Diet Status: No Change Liquid Consistency and Strategies for Safe Swallow: Liquid Intake Recommendation: Thin Liquid Intake Strategies: Small Sips Solid Food Consistency: Dietary Recommendations: Pureed (NDD1) Additional Modifications to Solid Foods: Alternate liquids and solids, check for oral clearance of bolus before presenting more food. Encourage double swallow on puree. Oral Medication Intake: Crushed with Puree Compensatory Strategies and Precautions to be Taken for Safe Swallow: Sitting Upright (90 deg) Double Swallow Small Bites and Sips Alternate Liquids/Solids Rate of Ingestion Change Oral Check Supervision While Eating and Drinking for Safe Swallow: Total Assistance Swallowing Recommended Treatments: Compens. Strategy Educat. Recommendation for Speech: Inpatient Speech Therapy PUBLIC TRANSIT [employer]OLLEY DRIVER to continue to follow. Television Production Assistant Clinican/Clinical Fellow: Yes: Yane Gonsalves Supervisory Statement: I have reviewed and agree with the student/clinical fellow's documentation: Yes Speech Language Pathologist: Angelica Claire M.A., CCC-PUBLIC TRANSIT TROLLEY DRIVER
--- NOTE | 2021-07-13 17:46 | P.PNPSI_ITS ---
Subjective Subjective Date of Service: 07/13/21 Reason For Visit: Dystonia Interim History: Went to see patient but he was sound asleep. Patient difficult to arouse. Sonogram Technician decided to let patient's sleep and to have psych consult follow up tomorrow. Discussed case with patient's nurse who said that he is doing a little better than previous day but still requiring assist to attend to all ADLs Diagnostics Vital Signs (24Hr): Vital Signs - 24 hr 07/12/21 19:49 07/12/21 20:33 07/13/21 00:00 Temperature 98.6 F 98.7 F Pulse Rate 91 91 70 Respiratory Rate 16 17 Blood Pressure 105/54 L 105/54 L 106/58 L Pulse Oximetry 96 99 07/13/21 03:38 07/13/21 07:34 07/13/21 11:32 Temperature 98.3 F 97.7 F 97.6 F Pulse Rate 78 82 92 Respiratory Rate 17 15 17 Blood Pressure 126/58 L 122/69 130/72 Pulse Oximetry 94 98 99 07/13/21 15:39 07/13/21 15:59 Temperature 96.8 F Pulse Rate 87 87 Respiratory Rate 16 Blood Pressure 104/57 L 104/57 L Pulse Oximetry 98 BMI result Body Mass Index 22.6 Labs Results: 07/12/21 05:13 07/12/21 05:13 Labs: Laboratory Results - last 48 hr 07/12/21 07/12/21 05:13 05:13 WBC 9.9 RBC 4.75 Hgb 14.8 Hct 43.2 MCV 90.9 MCH 31.2 MCHC 34.3 RDW 11.2 Plt Count 209 MPV 9.5 Absolute Nucleated RBC 0.000 Nucleated RBC % (auto) 0.0 Sodium 141 Potassium 4.3 Chloride 107 Carbon Dioxide 27 Anion Gap 11 L BUN 12 Creatinine 0.93 Estim Creat Clear Calc 140.1 Estimated GFR > 60 Random Glucose 111 Calcium 9.2 Total Creatine Kinase 102 D Imaging Radiology Impressions: ITS Impressions Head CT 07/06/21 16:03 IMPRESSION: No acute intracranial pathology. Medications Medications Current Medications Acetaminophen (Acetaminophen 325 Mg Tablet) 650 mg PO Q6H PRN PRN Reason: Pain, Mild (Pain Scale 1-3) Amantadine HCl (Amantadine Hcl 100 Mg Capsule) 100 mg PO BEDTIME [facility] Last Admin: 07/12/21 20:32 Dose: 100 mg Documented by: Artificial Tears (Artificial Tears 15 Ml Drops) 2 drop EYE-BOTH Q4H PRN PRN Reason: dry eyes Benztropine Mesylate (Benztropine Mesylate 1 Mg Tablet) 1 mg PO BID [facility] Last Admin: 07/13/21 10:28 Dose: Not Given Documented by: Benztropine Mesylate (Benztropine Mesylate 1 Mg Tablet) 1 mg PO DAILY PRN PRN Reason: akathesia Last Admin: 07/13/21 09:09 Dose: 1 mg Documented by: Clonazepam (Clonazepam 1 Mg Tablet) 1 mg PO BID PRN PRN Reason: anxiety Docusate Sodium (Docusate Sodium 100 Mg Capsule) 100 mg PO DAILY PRN PRN Reason: Constipation Enoxaparin Sodium (Enoxaparin Sodium 40 Mg/0.4 Ml Syringe) 40 mg SUBCUT Q24H [facility] Last Admin: 07/13/21 09:08 Dose: 40 mg Documented by: Lorazepam (Lorazepam 1 Mg Tablet) 1 mg PO TID [facility] Last Admin: 07/13/21 16:03 Dose: 1 mg Documented by: Nicotine (Nicotine 14 Mg Patch.Td24) 14 mg TRANSDERMA DAILY [facility] Last Admin: 07/13/21 09:08 Dose: 14 mg Documented by: Ondansetron HCl (Ondansetron Hcl 4 Mg/2 Ml Vial) 4 mg IVPUSH Q8H PRN PRN Reason: Nausea and Vomiting Pharmacy Consult (Consult Rx Perform Med Rec) 1 each MISCELLANE ONCE PRN PRN Reason: Consult order Propranolol HCl (Propranolol Hcl 10 Mg Tablet) 10 mg PO TID [facility]; Protocol Last Admin: 07/13/21 15:59 Dose: 10 mg Documented by: Sodium Chloride (0.9 % Sodium Chloride Flush 3 Ml Syringe) 3 ml IVFLUSH QSHIFT [facility] Last Admin: 07/13/21 16:00 Dose: 3 ml Documented by: Allergies Allergies Allergy/AdvReac Type Severity Reaction Status Date / Time diphenhydramine Allergy Unknown unknown Verified 10/12/20 04:33 [From BENADRYL] haloperidol [From HALDOL] Allergy Unknown unknown Verified 10/12/20 04:33 paliperidone AdvReac Severe dystonia Verified 03/30/21 23:47 Assessment & Plan Assessment & Plan (1) Schizoaffective disorder, bipolar type: Status: Acute Code(s): F25.0 - Schizoaffective disorder, bipolar type (2) Schizoaffective disorder: Status: Acute Code(s): F25.9 - Schizoaffective disorder, unspecified (3) Acute dystonic reaction due to drugs: Status: Acute Code(s): G24.02 - Drug induced acute dystonia Assessment and Plan: This is a 26-year-old male with past medical history of schizoaffective disorder who presented from [facility] with extrapyramidal symptoms. Patient presents with EPS/dystonic symptoms secondary to what sounds like receiving high dose of Prolixin Decanoate.? Pt has had re-assessment of CN and cogwheeling today, focused neuro exam reveals cogwheeling of bilateral arms, although R is worse than L side. CN 7, 11, and 12 appear impaired. Pt continues to need 1:1 and is full assist with ADLs. Dr. Light has reached out to Neurology to discuss case together and will follow-up.?I discussed case with Dr. Light and will start amantadine 100 mg QHS to as evidence based tx for drug induced parkinsonism symptoms. Currently patient denies any SI/HI/AVH and is thinking linear and logically; denies paranoid or delusional ideations.? Agree with continuing one-to-one sitter for now. EPS/dystonia: secondary to antipsychotics. still with persistent symptoms -STARTED Amantadine 100mg qhs (discussed case with Dr. Jerez and TONNY vora who agree with this plan) -olanzapine and fluphenazine on hold since admission -continue scheduled ativan 1mg TID -continue Clonazepam as prn -continue propranolol for prevention of akathesia. Will continue cogentin at 1 mg BID and 1 mg PRN for dystonia, monitor for urinary retention. -Start amantadine 07/12/21 for dystonia -Pt was seen by neuro, dr. Tidwell, who reports no tone abnormality or dystonic movements and felt that movement disorder was psychogenic and related to anxiety. However, Dr. Light and Dr. Jerez examined patient and have different findings; will follow up -PT/OT, OOB Daily (discussed with hospitalist who agrees) -Rotate patient to avoid pressure ulcers schizoaffective disorder: -patient denies any SI/HI/AVH and has not expressed any paranoid/delusional id eations; thought process is linear and goal directed. urinary retention: -seems to have resolved; likely from cogentin. Will continue bladder scan with prn straight cath if pt continues to have intermittent urinary retention; consider flomax if no improvement dysphagia: -swallow eval reportedly completed and pt reportedly has full function -result of EPS -seen by speech -advance to puree diet and thin liquids DVT prophylaxis:? -Loveankitx attending Dr. Neely dispo: likely to inpatient psych, can NOT leave AMA per psych. PT eval pending I spent minutes with the patient and/or on the patient floor today, greater than?50% of which was spent counseling/coordinating care. Reason for contiued inpatient stay Substantial Risk for: inability to function
[2021-07-13] MEDS: amantadine HCL 100 MG CAPSULE PO (19:51)
[2021-07-14] VITALS (8 sets, daily range): BP systolic 98–116; BP diastolic 42–62; PULSE 56–98; RESP 17–19; TEMP 36.2–37.4; O2SAT 95–97
[2021-07-14] MEDS: Propranolol HCL 10 MG TABLET PO ×2 (08:58→14:52)
[2021-07-14] MEDS: LORazepam 1 MG TABLET PO ×2 (08:58→14:53)
[2021-07-14] MEDS: Benztropine Mesylate 1 MG TABLET PO (08:58)
[2021-07-14] MEDS: Nicotine 14 MG PATCH.TD24 TRANSDERMA (08:59)
[2021-07-14] MEDS: 0.9 % Sodium Chloride Flush 3 ML SYRINGE IVFLUSH ×3 (09:03→23:37)
--- NOTE | 2021-07-14 10:34 | P.PNIM_ITS ---
Subjective Subjective Date of Service: 07/14/21 Interval History: seen and examined in follow up this morning still having tremors especially in RUE, but overall seems to be improving. talking,eating easier, ambulating easier with some assistance denies difficulty urinating, reporting some constipation. no abdominal pain, no nausea or vomiting Review of Systems Review of Systems: Yes all other systems are reviewed and are negative Constitutional Constitutional: Denies chills and Denies fever(s) Cardiovascular Cardiovascular: Denies chest pain Respiratory Respiratory: Denies cough Gastrointestinal Gastrointestinal: Denies abdominal pain Physical Exam Vital Signs: Vital Signs: Last Vital Signs Temp 98.6 F 07/14/21 07:09 Pulse 98 07/14/21 08:58 Resp 19 07/14/21 07:09 BP 112/62 07/14/21 08:58 Pulse Ox 97 07/14/21 07:09 BMI result Body Mass Index 22.6 Const: Other: answering questions appropriately General: cooperative, comfortable, no acute distress, alert and awake Nutritional Appearance: well nourished Orientation/consciousness: patient oriented x3 HENMT: Head: Yes normocephalic and Yes atraumatic Eyes: Sclerae: sclerae normal Chest: Chest palpation & inspection: normal inspection of the chest Resp: Effort & Inspection: normal respiratory effort and no respiratory distress Cardio: Rate: regular rate Rhythm: regular rhythm GI: Palpation (GI): Soft to palpation and nontender Neuro: General: patient oriented x3 Extrem: Other: able to move all 4 extremities spontaneously RUE tremors; no significant tremor LUE at this time. Psych: Affect: Blunted affect present Objective Data Active Medications Acetaminophen (Acetaminophen 325 Mg Tablet) 650 mg PO Q6H PRN PRN Reason: Pain, Mild (Pain Scale 1-3) Amantadine HCl (Amantadine Hcl 100 Mg Capsule) 100 mg PO BEDTIME [facility] Last Admin: 07/13/21 19:51 Dose: 100 mg Documented by: RIANA Artificial Tears (Artificial Tears 15 Ml Drops) 2 drop EYE-BOTH Q4H PRN PRN Reason: dry eyes Benztropine Mesylate (Benztropine Mesylate 1 Mg Tablet) 1 mg PO BID [facility] Last Admin: 07/14/21 08:58 Dose: 1 mg Documented by: KARTHIK Benztropine Mesylate (Benztropine Mesylate 1 Mg Tablet) 1 mg PO DAILY PRN PRN Reason: akathesia Last Admin: 07/13/21 09:09 Dose: 1 mg Documented by: RIANA Clonazepam (Clonazepam 1 Mg Tablet) 1 mg PO BID PRN PRN Reason: anxiety Docusate Sodium (Docusate Sodium 100 Mg Capsule) 100 mg PO DAILY PRN PRN Reason: Constipation Docusate Sodium (Docusate Sodium 100 Mg/10 Ml Liquid) 100 mg PO BEDTIME [facility] Enoxaparin Sodium (Enoxaparin Sodium 40 Mg/0.4 Ml Syringe) 40 mg SUBCUT Q24H [facility] Last Admin: 07/14/21 09:00 Dose: Not Given Documented by: KARTHIK Non-Admin Reason: Patient Refused Lorazepam (Lorazepam 1 Mg Tablet) 1 mg PO TID [facility] Last Admin: 07/14/21 08:58 Dose: 1 mg Documented by: KARTHIK Nicotine (Nicotine 14 Mg Patch.Td24) 14 mg TRANSDERMA DAILY [facility] Last Admin: 07/14/21 08:59 Dose: 14 mg Documented by: KARTHIK Ondansetron HCl (Ondansetron Hcl 4 Mg/2 Ml Vial) 4 mg IVPUSH Q8H PRN PRN Reason: Nausea and Vomiting Pharmacy Consult (Consult Rx Perform Med Rec) 1 each MISCELLANE ONCE PRN PRN Reason: Consult order Polyethylene Glycol (Polyethylene Glycol 3350 17 Gm Powd.Pack) 17 gm PO DAILY PRN PRN Reason: Constipation Propranolol HCl (Propranolol Hcl 10 Mg Tablet) 10 mg PO TID [facility]; Protocol Last Admin: 07/14/21 08:58 Dose: 10 mg Documented by: KARTHIK Sodium Chloride (0.9 % Sodium Chloride Flush 3 Ml Syringe) 3 ml IVFLUSH QSHIFT [facility] Last Admin: 07/14/21 09:03 Dose: 3 ml Documented by: KARTHIK Labs CBC & Chem 7: 07/12/21 05:13 07/12/21 05:13 Assessment and Plan (1) Urinary retention: Status: Acute (2) Schizoaffective disorder, bipolar type: Status: Acute (3) Extrapyramidal symptom: Status: Acute Assessment and Plan: This is a 26-year-old male with past medical history of schizoaffective disorder who presented from [facility] with extrapyramidal symptoms EPS/dystonia/Tardive dyskinesia secondary to antipsychotics appears to be slowly improving olanzapine and fluphenazine on hold since admission continue Klonopin, propranolol, continue cogentin, amantadine -- at doses recommended by psych seen by neuro -- see their note Seen by PT/OT, OOB walking with therapy, OOB to chair schizoaffective disorder psych following urinary retention likely from cogentin intermittent urinary retention bladder scan with prn straight cath consider flomax if no improvement dysphagia result of EPS seen by speech advance to puree diet and thin liquids Full Code DVT pptx, Lovenox attending: dr. moses Quality Stroke Does the patient have a stroke diagnosis?: No VTE Prior VTE?: No VTE Risk Level:: Medical - moderate - high VTE Device Contraindication: Treatment Not Indicated VTE Drug Contraindication: N/A - Med Ordered
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
[2021-07-15] VITALS (7 sets, daily range): BP systolic 109–140; BP diastolic 56–70; PULSE 69–91; RESP 16–20; TEMP 36.1–37.1; O2SAT 96–99
[2021-07-15] MEDS: LORazepam 1 MG TABLET PO ×3 (08:20→22:01)
[2021-07-15] MEDS: Propranolol HCL 10 MG TABLET PO ×3 (08:20→22:01)
[2021-07-15] MEDS: Benztropine Mesylate 1 MG TABLET PO ×2 (08:20→22:01)
[2021-07-15] MEDS: Nicotine 14 MG PATCH.TD24 TRANSDERMA (08:20)
[2021-07-15] MEDS: 0.9 % Sodium Chloride Flush 3 ML SYRINGE IVFLUSH ×3 (08:21→22:02)
--- NOTE | 2021-07-15 09:37 | P.PNIM_ITS ---
Subjective Subjective Date of Service: 07/15/21 Interval History: Seen in f/u for extrpyramidal syndrome, alert, signficant tremors in right hand less o on the left, being fed and other ADL being performed for. Review of Systems no fever, no focal weakness Physical Exam Vital Signs: Vital Signs: Last Vital Signs Temp 97.4 F 07/15/21 08:00 Pulse 91 07/15/21 08:00 Resp 18 07/15/21 08:00 BP 120/70 07/15/21 08:00 Pulse Ox 99 07/15/21 08:00 BMI result Body Mass Index 22.6 Const: Other: General: AO X 3, no acute distress Resp: CTA bilateral CVS: S1,S2,RRR GI: +BS, NT, no distention Skin: No rash Neuro: motor grossly intact, significant tremors in left hand, Psych: appropriate affect General: cooperative, comfortable, no acute distress, alert and awake Nutritional Appearance: well nourished Orientation/consciousness: patient oriented x3 HENMT: Head: Yes normocephalic and Yes atraumatic Eyes: General: appearance normal, both eyes and all related structures Sclerae: sclerae normal Pupils: Equal, round and reactive pupils present Chest: Chest palpation & inspection: normal inspection of the chest Resp: Effort & Inspection: normal respiratory effort and no respiratory distress Auscultation: clear to auscultation bilaterally Cardio: Rate: regular rate Rhythm: regular rhythm GI: Palpation (GI): Soft to palpation and nontender Auscultation: normal bowel sounds Skin: General skin exam: no rashes or lesions noted Neuro: Other: upper extremity tremors General: patient oriented x3 Cranial nerves: Yes Equal, round and reactive pupils present and Yes Bilaterally intact EOM present Cognition (Neuro): normal cognition Extrem: Other: able to move all 4 extremities spontaneously RUE tremors; no significant tremor LUE at this time. General: Yes normal to inspection and Yes no pedal edema Psych: Affect: Blunted affect present Objective Data Active Medications Acetaminophen (Acetaminophen 325 Mg Tablet) 650 mg PO Q6H PRN PRN Reason: Pain, Mild (Pain Scale 1-3) Amantadine HCl (Amantadine Hcl 100 Mg Capsule) 100 mg PO BEDTIME [facility] Last Admin: 07/14/21 21:08 Dose: Not Given Documented by: GERA Non-Admin Reason: Patient Refused Artificial Tears (Artificial Tears 15 Ml Drops) 2 drop EYE-BOTH Q4H PRN PRN Reason: dry eyes Benztropine Mesylate (Benztropine Mesylate 1 Mg Tablet) 1 mg PO BID [facility] Last Admin: 07/15/21 08:20 Dose: 1 mg Documented by: RIANA Benztropine Mesylate (Benztropine Mesylate 1 Mg Tablet) 1 mg PO DAILY PRN PRN Reason: akathesia Last Admin: 07/13/21 09:09 Dose: 1 mg Documented by: RIANA Clonazepam (Clonazepam 1 Mg Tablet) 1 mg PO BID PRN PRN Reason: anxiety Docusate Sodium (Docusate Sodium 100 Mg Capsule) 100 mg PO DAILY PRN PRN Reason: Constipation Docusate Sodium (Docusate Sodium 100 Mg/10 Ml Liquid) 100 mg PO BEDTIME [facility] Last Admin: 07/14/21 21:08 Dose: Not Given Documented by: GERA Non-Admin Reason: Patient Refused Enoxaparin Sodium (Enoxaparin Sodium 40 Mg/0.4 Ml Syringe) 40 mg SUBCUT Q24H [facility] Last Admin: 07/15/21 08:28 Dose: Not Given Documented by: RIANA Non-Admin Reason: Patient Refused Lorazepam (Lorazepam 1 Mg Tablet) 1 mg PO TID [facility] Last Admin: 07/15/21 08:20 Dose: 1 mg Documented by: RIANA Nicotine (Nicotine 14 Mg Patch.Td24) 14 mg TRANSDERMA DAILY [facility] Last Admin: 07/15/21 08:20 Dose: 14 mg Documented by: RIANA Ondansetron HCl (Ondansetron Hcl 4 Mg/2 Ml Vial) 4 mg IVPUSH Q8H PRN PRN Reason: Nausea and Vomiting Pharmacy Consult (Consult Rx Perform Med Rec) 1 each MISCELLANE ONCE PRN PRN Reason: Consult order Polyethylene Glycol (Polyethylene Glycol 3350 17 Gm Powd.Pack) 17 gm PO DAILY PRN PRN Reason: Constipation Propranolol HCl (Propranolol Hcl 10 Mg Tablet) 10 mg PO TID [facility]; Protocol Last Admin: 07/15/21 08:20 Dose: 10 mg Documented by: RIANA Sodium Chloride (0.9 % Sodium Chloride Flush 3 Ml Syringe) 3 ml IVFLUSH QSHIFT [facility] Last Admin: 07/15/21 08:21 Dose: 3 ml Documented by: NGENOAL Labs CBC & Chem 7: 07/12/21 05:13 07/12/21 05:13 Assessment and Plan (1) Urinary retention: Status: Acute (2) Schizoaffective disorder, bipolar type: Status: Acute (3) Extrapyramidal symptom: Status: Acute Assessment and Plan: 26-year-old male with past medical history of schizoaffective disorder who [facility] with extrapyramidal symptoms EPS/dystonia/Tardive dyskinesia secondary to antipsychotics appears to be slowly improving olanzapine and fluphenazine on hold since admission continue Klonopin, propranolol, continue cogentin, amantadine -- at doses recommended by psych seen by neuro -- see their note Seen by PT/OT, OOB walking with therapy, OOB to chair schizoaffective disorder psych following urinary retention likely from cogentin intermittent urinary retention bladder scan with prn straight cath consider flomax if no improvement dysphagia result of EPS seen by speech advance to puree diet and thin liquids frequent turning, oob and PT and OT should be working with him as well Full Code DVT pptx, Lovenox attending: dr. moses Quality Stroke Does the patient have a stroke diagnosis?: No VTE Prior VTE?: No VTE Risk Level:: Medical - moderate - high VTE Device Contraindication: Treatment Not Indicated VTE Drug Contraindication: N/A - Med Ordered
--- NOTE | 2021-07-15 10:53 | MHC.SL.SWA ---
Speech Pathologist Impression: Risk of Aspiration Oralpharyngeal Dysphagia Risk of Aspiration Due to: Neurological Condition Dysphasia Diet Status: No Change Liquid Consistency and Strategies for Safe Swallow: Liquid Intake Recommendation: Thin Liquid Intake Strategies: Small Sips Solid Food Consistency: Dietary Recommendations: Pureed (NDD1) Additional Modifications to Solid Foods: Alternate liquids and solids, check for oral clearance of bolus before presenting more food. Encourage double swallow on puree. Oral Medication Intake: Crushed with Puree Compensatory Strategies and Precautions to be Taken for Safe Swallow: Sitting Upright (90 deg) Double Swallow Small Bites and Sips Alternate Liquids/Solids Rate of Ingestion Change Oral Check Supervision While Eating and Drinking for Safe Swallow: Total Assistance Foods to Avoid: Swallowing Recommended Treatments: Compens. Strategy Educat. Recommendation for Speech: Inpatient Speech Therapy Comment: Patient is a 26 year old male with history of schizoaffective disorder, anxiety, and depression. He is admitted for extrapyramidal symptom, acute dystonic reaction d/t drugs, dystonia. Pt has oralpharyngeal dysphagia secondary to dystonia, with decreased range of motion of oral structures, delay initiating swallow. Pt has been tolerating recommended diet of thin liquids and pureed solids well. On 07/15 able to self-feed liquids by straw, with good oral management of bolus and no clinical signs of aspiration on repeated swallows. Pt is also orally managing puree consistencies well, with improved closure on spoon, stripping of spoon and oral propulsion of bolus. Pt continues to have mild delay of initiating swallow on all consistencies, but has no clinical s/s aspiration. Continue on diet of PUREE (NDD3) and THIN LIQUID, with PILLS CRUSHED IN PUREE. Pt currently pending discharge, awaiting bed in Rehab facility. Communications Tech Clinican/Clinical Fellow: No Supervisory Statement: I have reviewed and agree with the student/clinical fellow's documentation: N/A Speech Language Pathologist: Paty Harris M.A., CCC-[employer]
--- NOTE | 2021-07-15 13:00 | MHC.CM.PN ---
PATIENT NOT YET STABLE FOR DISCHARGE CASE MANAGEMENT FOLLOWING
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
--- NOTE | 2021-07-15 18:10 | PC.NURSE ---
Pt is alert and oriented x3. pt continues to have tremors especially to the right upper extremity. There is definitely some improvements. Pt ambulated with 1 assist with a walker. Pt also had a shower and his gait is improving.
[2021-07-15] MEDS: Docusate Sodium 100 MG/10 ML LIQUID PO (22:01)
[2021-07-15] MEDS: amantadine HCL 100 MG CAPSULE PO (22:01)
[2021-07-16] VITALS: BP 97/59; PULSE 94; RESP 15; TEMP 37; O2SAT 97
[2021-07-16 07:36] VITALS: BP 107/51; PULSE 66; RESP 18; TEMP 37.4; O2SAT 98
[2021-07-16] MEDS: Nicotine 14 MG PATCH.TD24 TRANSDERMA (09:02)
[2021-07-16] MEDS: LORazepam 1 MG TABLET PO ×2 (09:03→20:44)
[2021-07-16] MEDS: Benztropine Mesylate 1 MG TABLET PO ×2 (09:03→20:43)
[2021-07-16] MEDS: Propranolol HCL 10 MG TABLET PO ×2 (09:03→20:43)
--- NOTE | 2021-07-16 10:38 | P.PNIM_ITS ---
Subjective Subjective Date of Service: 07/16/21 Physical Exam Verdana 4l Vital Signs: Verdana 4d Verdana 4d Vital Signs: Verdana 4d Verdana 4Bd Last Vital Signs Verdana 4d Accordion Tuner New 4d Accordion Tuner New 4d Temp 99.4 F 07/16/21 07:36 Accordion Tuner New 4d Pulse 66 07/16/21 07:36 Accordion Tuner NewNew 4d Resp 18 07/16/21 07:36 BP 107/51 L 07/16/21 07:36 Pulse Ox 98 07/16/21 07:36 BMI result Body Mass Index 22.6 Objective Data Active Medications Acetaminophen (Acetaminophen 325 Mg Tablet) 650 mg PO Q6H PRN PRN Reason: Pain, Mild (Pain Scale 1-3) Amantadine HCl (Amantadine Hcl 100 Mg Capsule) 100 mg PO BEDTIME [facility] Last Admin: 07/15/21 22:01 Dose: 100 mg Documented by: GERA Artificial Tears (Artificial Tears 15 Ml Drops) 2 drop EYE-BOTH Q4H PRN PRN Reason: dry eyes Benztropine Mesylate (Benztropine Mesylate 1 Mg Tablet) 1 mg PO BID [facility] Last Admin: 07/16/21 09:03 Dose: 1 mg Documented by: PALMIRA Benztropine Mesylate (Benztropine Mesylate 1 Mg Tablet) 1 mg PO DAILY PRN PRN Reason: akathesia Last Admin: 07/13/21 09:09 Dose: 1 mg Documented by: RIANA Clonazepam (Clonazepam 1 Mg Tablet) 1 mg PO BID PRN PRN Reason: anxiety Docusate Sodium (Docusate Sodium 100 Mg Capsule) 100 mg PO DAILY PRN PRN Reason: Constipation Docusate Sodium (Docusate Sodium 100 Mg/10 Ml Liquid) 100 mg PO BEDTIME [facility] Last Admin: 07/15/21 22:01 Dose: 100 mg Documented by: GERA Enoxaparin Sodium (Enoxaparin Sodium 40 Mg/0.4 Ml Syringe) 40 mg SUBCUT Q24H [facility] Last Admin: 07/16/21 09:17 Dose: Not Given Documented by: PALMIRA Non-Admin Reason: Patient Refused Lorazepam (Lorazepam 1 Mg Tablet) 1 mg PO TID [facility] Last Admin: 07/16/21 09:03 Dose: 1 mg Documented by: PALMIRA Nicotine (Nicotine 14 Mg Patch.Td24) 14 mg TRANSDERMA DAILY [facility] Last Admin: 07/16/21 09:02 Dose: 14 mg Documented by: PALMIRA Ondansetron HCl (Ondansetron Hcl 4 Mg/2 Ml Vial) 4 mg IVPUSH Q8H PRN PRN Reason: Nausea and Vomiting Pharmacy Consult (Consult Rx Perform Med Rec) 1 each MISCELLANE ONCE PRN PRN Reason: Consult order Polyethylene Glycol (Polyethylene Glycol 3350 17 Gm Powd.Pack) 17 gm PO DAILY PRN PRN Reason: Constipation Propranolol HCl (Propranolol Hcl 10 Mg Tablet) 10 mg PO TID [facility]; Protocol Last Admin: 07/16/21 09:03 Dose: 10 mg Documented by: PALMIRA Sodium Chloride (0.9 % Sodium Chloride Flush 3 Ml Syringe) 3 ml IVFLUSH QSHIFT [facility] Last Admin: 07/16/21 09:04 Dose: Not Given Documented by: PALMIRA Non-Admin Reason: No Access Labs CBC & Chem 7: 07/12/21 05:13 07/12/21 05:13 Assessment and Plan (1) Dystonia: Status: Acute (2) Extrapyramidal symptom: Status: Acute (3) Schizoaffective disorder: Status: Acute Assessment and Plan: 26-year-old male with past medical history of schizoaffective disorder who presented from shelter with extrapyramidal symptoms EPS/dystonia/Tardive dyskinesia secondary to antipsychotics appears to be slowly improving olanzapine and fluphenazine on hold since admission continue Klonopin, propranolol, continue cogentin, amantadine -- at doses recommended by psych seen by neuro -- see their note Seen by PT/OT, OOB walking with therapy, OOB to chair schizoaffective disorder psych following urinary retention likely from cogentin intermittent urinary retention bladder scan with prn straight cath consider flomax if no improvement Dysphagia result of EPS seen by speech advance to puree diet and thin liquids frequent turning, oob and PT and OT should be working with him as well Full Code DVT pptx, Lovenox attending Dr. Neely Quality Stroke Does the patient have a stroke diagnosis?: No VTE Prior VTE?: No VTE Risk Level:: Medical - moderate - high VTE Device Contraindication: Treatment Not Indicated VTE Drug Contraindication: N/A - Med Ordered
[2021-07-16] MEDS: amantadine HCL 100 MG CAPSULE PO ×2 (12:29→20:43)
[2021-07-16 15:39] VITALS: BP 116/72; PULSE 99; RESP 18; TEMP 36.5; O2SAT 96
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
[2021-07-16 19:21] VITALS: BP 145/67; PULSE 81; RESP 18; TEMP 36.2; O2SAT 96
[2021-07-16 20:43] VITALS: BP 145/67; PULSE 81
[2021-07-17] VITALS: BP 101/55; PULSE 62; RESP 18; TEMP 36.3; O2SAT 97
[2021-07-17 06:48] LABS: Hematocrit 43.9 % (42.0-52.0); Hemoglobin 15.4 g/dl (14.0-18.0); Mean Corpuscular HGB Conc 35.1 g/dl (31.0-36.0); Mean Corpuscular Hemoglobin 31.6 pg (27.0-33.0); Mean Platelet Volume 9.4 fL (9.4-12.4); Platelet Count 247 X10*3/uL (160-400); Red Blood Count 4.88 X10*6/uL (4.60-5.80); Red Cell Distribution Width 11.4 % (11.0-16.0); White Blood Count 6.7 X10*3/uL (4.8-10.8)
[2021-07-17] MEDS: Nicotine 14 MG PATCH.TD24 TRANSDERMA (07:11)
[2021-07-17] MEDS: Benztropine Mesylate 1 MG TABLET PO ×2 (07:12→20:17)
[2021-07-17] MEDS: Propranolol HCL 10 MG TABLET PO ×3 (07:12→20:17)
[2021-07-17] MEDS: amantadine HCL 100 MG CAPSULE PO ×2 (07:12→20:17)
[2021-07-17 07:17] LABS: Anion Gap 15 (12-20); Blood Urea Nitrogen 15 mg/dL (9-16); Calcium 10.1 mg/dL (8.4-10.2); Carbon Dioxide 29 mmol/L (22-29); Chloride 101 mmol/L (96-108); Creatinine Clr Calc Pharmacy 140.1; Estimated Glomerular Filt Rate > 60; Glucose Random 83 mg/dL (60-115); Potassium 4.7 mmol/L (3.3-5.1); Sodium 140 mmol/L (135-145)
[2021-07-17 07:54] VITALS: BP 114/59; PULSE 67; RESP 18; TEMP 36.1; O2SAT 98
--- NOTE | 2021-07-17 10:07 | P.PNIM_ITS ---
Subjective Subjective Date of Service: 07/17/21 Review of Systems Follow up dystonia Slowly improving No complaints of pain Physical Exam Verdana 4l Vital Signs: Verdana 4d Verdana 4d Vital Signs: Verdana 4d Verdana 4Bd Last Vital Signs Verdana 4d Sonogram Technician New 4d Sonogram Technician New 4d Temp 97 F 07/17/21 07:54 Sonogram Technician New 4d Pulse 67 07/17/21 07:54 Cameron NewNew 4d Resp 18 07/17/21 07:54 BP 114/59 L 07/17/21 07:54 Pulse Ox 98 07/17/21 07:54 BMI result Body Mass Index 22.6 Appearing in no acute distress lung sounds are clear to auscultation heart regular rate rhythm, clear S1, S2 positive bowel sounds, abdomen is soft, nontender neuro patient is alert x3, no focal deficits Right hand tremors, Noted dystonia diffusely Objective Data Active Medications Acetaminophen (Acetaminophen 325 Mg Tablet) 650 mg PO Q6H PRN PRN Reason: Pain, Mild (Pain Scale 1-3) Amantadine HCl (Amantadine Hcl 100 Mg Capsule) 100 mg PO BID [facility] Last Admin: 07/17/21 07:12 Dose: 100 mg Documented by: RIANA Artificial Tears (Artificial Tears 15 Ml Drops) 2 drop EYE-BOTH Q4H PRN PRN Reason: dry eyes Benztropine Mesylate (Benztropine Mesylate 1 Mg Tablet) 1 mg PO BID [facility] Last Admin: 07/17/21 07:12 Dose: 1 mg Documented by: RIANA Benztropine Mesylate (Benztropine Mesylate 1 Mg Tablet) 1 mg PO DAILY PRN PRN Reason: akathesia Last Admin: 07/13/21 09:09 Dose: 1 mg Documented by: RIANA Docusate Sodium (Docusate Sodium 100 Mg Capsule) 100 mg PO DAILY PRN PRN Reason: Constipation Docusate Sodium (Docusate Sodium 100 Mg/10 Ml Liquid) 100 mg PO BEDTIME [facility] Last Admin: 07/16/21 20:47 Dose: Not Given Documented by: SHELBY Non-Admin Reason: Patient Refused Enoxaparin Sodium (Enoxaparin Sodium 40 Mg/0.4 Ml Syringe) 40 mg SUBCUT Q24H [facility] Last Admin: 07/17/21 09:11 Dose: Not Given Documented by: RIANA Non-Admin Reason: Patient Refused Nicotine (Nicotine 14 Mg Patch.Td24) 14 mg TRANSDERMA DAILY [facility] Last Admin: 07/17/21 07:11 Dose: 14 mg Documented by: RIANA Ondansetron HCl (Ondansetron Hcl 4 Mg/2 Ml Vial) 4 mg IVPUSH Q8H PRN PRN Reason: Nausea and Vomiting Pharmacy Consult (Consult Rx Perform Med Rec) 1 each MISCELLANE ONCE PRN PRN Reason: Consult order Polyethylene Glycol (Polyethylene Glycol 3350 17 Gm Powd.Pack) 17 gm PO DAILY PRN PRN Reason: Constipation Propranolol HCl (Propranolol Hcl 10 Mg Tablet) 10 mg PO TID [facility]; Protocol Last Admin: 07/17/21 07:12 Dose: 10 mg Documented by: RIANA Sodium Chloride (0.9 % Sodium Chloride Flush 3 Ml Syringe) 3 ml IVFLUSH QSHIFT [facility] Last Admin: 07/17/21 07:19 Dose: Not Given Documented by: RIANA Non-Admin Reason: No Access Labs CBC & Chem 7: 07/17/21 06:13 07/17/21 06:13 Labs: Laboratory Results - last 24 hr 07/17/21 07/17/21 06:13 06:13 MCV 90.0 MCH 31.6 MCHC 35.1 RDW 11.4 Plt Count 247 MPV 9.4 Absolute Nucleated RBC 0.000 Nucleated RBC % (auto) 0.0 Anion Gap 15 Estim Creat Clear Calc 140.1 Estimated GFR > 60 Random Glucose 83 Calcium 10.1 D Assessment and Plan (1) Extrapyramidal symptom: Status: Acute (2) Schizoaffective disorder, bipolar type: Status: Acute Assessment and Plan: 26-year-old male with past medical history of schizoaffective disorder who presented from custodial with extrapyramidal symptoms EPS/dystonia/Tardive dyskinesia secondary to antipsychotics appears to be slowly improving olanzapine and fluphenazine on hold since admission continue Klonopin, propranolol, continue cogentin, amantadine -- at doses recommended by psych seen by neuro -- see their note Seen by PT/OT, OOB walking with therapy, OOB to chair At this point patient will benefit from acute rehab, will discuss with case management schizoaffective disorder psych following urinary retention likely from cogentin intermittent urinary retention bladder scan with prn straight cath consider flomax if no improvement Dysphagia result of EPS seen by speech advance to puree diet and thin liquids frequent turning, oob and PT and OT should be working with him as well Full Code DVT pptx, Brendan attending Dr. Ryan Quality Stroke Does the patient have a stroke diagnosis?: No VTE Prior VTE?: No VTE Risk Level:: Medical - moderate - high VTE Device Contraindication: Treatment Not Indicated VTE Drug Contraindication: N/A - Med Ordered
--- NOTE | 2021-07-17 11:08 | MHC.CM.PN ---
NO ACUTE REHAB BED OFFERS SNF REFERRAL UPDATED TO INCLUDE [facility].
[2021-07-17 12:00] VITALS: BP 103/63; PULSE 88; RESP 18; TEMP 36.4; O2SAT 98
--- NOTE | 2021-07-17 12:12 | PC.NURSE ---
Pt alert and oriented x3. Pt continues to have tremors to the right upper extremity. pt requested to have a sandwch
--- NOTE | 2021-07-17 12:15 | PC.NURSE ---
Pt alert and oriented x3. C/O pain to the right upper extremity and tremors to both upper & lower extremities. Pt ambulated with 1 assist and a walker. 1:1 pile driving setter within reach at all times. pt also requested to take a shower. Pt requested to have a sandwich. ERLINDA Owusu notified . Francoise said we could try. pt had a chicken salad sandwich which he ate without any issues. No coughing or choking while eating. Mobility has also improved.
--- NOTE | 2021-07-17 12:40 | MHC.CM.PN ---
PATIENT TELLS THIS DIRECTOR REACTOR PROJECTS THAT HE IS NOT VACCINATED AGAINST COVID-19 PER CONVERSATION WITH Quinn, PLAN IS TO NOW ASK THAT PATIENT BE RE-EVALUATED FOR INPATIENT PSYCHIATRIC TREATMENT FOR MEDICATION MANAGEMENT PRIOR TO RETURNING HOME (PATIENT AMBULATING IN HALLWAYS WITH A WALKER)
[2021-07-17 15:44] VITALS: BP 130/56; PULSE 77; RESP 16; TEMP 36.6; O2SAT 97
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
[2021-07-17 19:43] VITALS: BP 128/62; PULSE 72; RESP 16; TEMP 36.2; O2SAT 97
[2021-07-17 20:17] VITALS: BP 128/62; PULSE 72
[2021-07-18] VITALS (7 sets, daily range): BP systolic 102–144; BP diastolic 55–67; PULSE 62–77; RESP 17–20; TEMP 36.2–37.1; O2SAT 96–100
[2021-07-18] MEDS: amantadine HCL 100 MG CAPSULE PO (08:35)
[2021-07-18] MEDS: Propranolol HCL 10 MG TABLET PO ×2 (08:35→15:01)
[2021-07-18] MEDS: Nicotine 14 MG PATCH.TD24 TRANSDERMA (08:36)
[2021-07-18] MEDS: Benztropine Mesylate 1 MG TABLET PO (08:36)
[2021-07-18] MEDS: Nicotine Polacrilex 2 MG GUM BUCCAL ×3 (08:42→15:03)
--- NOTE | 2021-07-18 10:17 | MHC.CM.PN ---
Addendum entered by Paty Yee RN 07/18/21 15:59: PT WILL D/C TO INPT PSYCH M5, TIME IS PENDING, [facility]FF TO TRANSPORT PT Original Note: EMR REVIEWED, PER HOSPITALIST PT CONT'S TO IMPROVE AND WILL REVIEW OT NOTES, PT WILL NEED TO BE SEEN BY OT AGAIN TODAY AND WOULD LIKE TO REFER PT BACK TO INPT PSYCH TODAY, CM WILL CONT TO FOLLOW D/C NEEDS.
--- NOTE | 2021-07-18 13:38 | MHC.SL.SWA ---
Speech Pathologist Impression: Risk of Aspiration Oralpharyngeal Dysphagia Risk of Aspiration Due to: Neurological Condition Dysphasia Diet Status: No Change Liquid Consistency and Strategies for Safe Swallow: Liquid Intake Recommendation: Thin Liquid Intake Strategies: Small Sips Solid Food Consistency: Dietary Recommendations: Pureed (NDD1) Additional Modifications to Solid Foods: Alternate liquids and solids, check for oral clearance of bolus before presenting more food. Encourage double swallow on puree. Oral Medication Intake: Crushed with Puree Compensatory Strategies and Precautions to be Taken for Safe Swallow: Sitting Upright (90 deg) Double Swallow Small Bites and Sips Alternate Liquids/Solids Rate of Ingestion Change Oral Check Supervision While Eating and Drinking for Safe Swallow: Total Assistance Foods to Avoid: Swallowing Recommended Treatments: Compens. Strategy Educat. Recommendation for Speech: Inpatient Speech Therapy Comment: Patient is a 26 year old male with history of schizoaffective disorder, anxiety, and depression. He is admitted for extrapyramidal symptom, acute dystonic reaction d/t drugs, dystonia. Per ED note 07/07/21, patient was unable to feed himself d/t muscle contraction, cogwheeling, and also has been walking with severe ataxia and unsteady gait. It is also documented patient has difficulty with jaw movement and swallowing, presents with tongue fasciculations. RN reported that patient was coughing when eating dinner last night. Patient stated that he does not feel comfortable eating regular food at this time. Head CT showed no acute intracranial pathology. 07/18: Patient seen for dysphagia treatment this pm during lunch. Our records show that Pt's diet was unchanged/not upgraded from Puree (NDD1) w/ thin liquids. Pt was being assisted by CLERICAL OFFICE WORKER, tray had CHOPPED/ADVANCED consistency (cubed chicken and carrots). CLERICAL OFFICE WORKER was encouraged to give puree consistencies on tray (mashed potato, yogurt). Pt complained that mashed potato was too hard, requested cream of wheat to substitute for Lunch tray. Pt accepted some yogurt by spoonful, said it was smoother and o.k. Pt tolerating puree consistency well. Nursing notified of problem with tray, nursing planned to contact dietary to order some Cream of Wheat. ASPHALT TAR AND GRAVEL ROOFER checked diet orders which were entered as Chopped/Advanced, DOWNGRADED diet back to PUREE (NDD1) with continuation of THIN liquids. Recommend Pt continue on PUREE. , Nutrition notified by secure text. Patient requires 1:1 assistance for ALL PO intake. ASPH[employer] T[employer] AND GRAVEL ROOFER will continue to follow. Frequency/Duration: Date Range for Service Req: Timeline to reassess: Cardiac Care Unit Nurse Clinican/Clinical Fellow: No Supervisory Statement: I have reviewed and agree with the student/clinical fellow's documentation: N/A Speech Language Pathologist: Paty Harris M.A., CCC-ASPHALT TAR AND GRAVEL ROOFER
--- NOTE | 2021-07-18 15:44 | P.DS_ITS ---
DS: Providers Provider Date of Service: 07/18/21 Date of admission: 07/06/21 21:42 Primary care physician: Nicolas Godfrey MD Consults: 07/06/21 18:18 Consult to Crisis Stat Reason for consultation: Developed dystonic reaction from Prolixin, depression/SI. 07/07/21 07:38 Consult to Psychiatry Routine Consulting Provider: Psych Covering Reason for consultation: admitted for EPS; med adjustment Has provider been notified: No 07/07/21 08:02 Consult to Psychiatry Routine Consulting Provider: Psych Covering Reason for consultation: dystonia, ataxia, side affect to psych med Has provider been notified: Yes 07/07/21 15:58 Consult to Care Team Routine Comment: Reason for consultation: eval for inpatient psych;here w/ EPS, needs med adjustment; medically clear 07/08/21 17:47 Consult for Sitter Routine Reason for consultation: SI Has provider been notified: No 07/09/21 09:38 Consult to Neurology Routine Consulting Provider: [facility] Reason for consultation: ataxia, unsteady gait, tremors; leg weakness 07/09/21 09:57 Consult to Psychiatry Routine Consulting Provider: Psych Covering Reason for consultation: Daily evaluation of EPS/med adjustment; SI Has provider been notified: No 07/18/21 12:04 Consult to Crisis Stat Reason for consultation: return to M3 Has provider been notified: No Attending physician on discharge: Tom Ryan Discharging clinician: Francoise Hernández DS: Diagnosis Discharge Diagnosis (1) Schizoaffective disorder, bipolar type: Status: Acute (2) Acute dystonic reaction due to drugs: Status: Acute DS: Summary Hospital Course Hospital Course: HP as per admitting provider This is a 26-year-old male with a history of anxiety as well as schizoaffective disorder who comes from detention with reported history of 5 days of dystonic movements as well inability to eat due to extrapyramidal disease.? Patient has flat affect, answers questions with one- word answers, he reports that he is not feeling well for few days, has not been able to eat, has involuntary movement and has not been able to eat due to those.? This occurred after he got injection.?He denies any chest pain, no shortness of breath, no cough, no abdominal pain nausea or vomiting, no diarrhea constipation, no urinary symptoms and no lower extremity edema.? No headache, change in vision, numbness weakness or tingling.?On arrival to the ED patient hemodynamically stable with no significant abnormal vitals. Labs reviewed showed no significant abnormality Head CT shows no acute intracranial pathology EPS/dystonia/Tardive dyskinesia secondary to antipsychotics appears to be slowly improving olanzapine and fluphenazine on hold since admission continue Klonopin, propranolol, continue cogentin, amantadine seen by neuro -- see their note Seen by PT/OT, OOB walking with therapy, OOB to chair Medically clear and will transfer to . schizoaffective disorder psych following, medications to be managed in M5 urinary retention. Resolved likely from cogentin intermittent urinary retention bladder scan with prn straight cath Dysphagia result of EPS seen by speech advance to puree diet and thin liquids Time Spent with Patient Time attestation: Total time spent providing and/or coordinating discharge services: Discharge coordination time: Greater than 30 minutes Quality: Stroke Does the patient have a stroke diagnosis?: No Physical Exam Verdana 4l Vital Signs: Verdana 4d Verdana 4d Vital Signs: Verdana 4d Verdana 4Bd Last Vital Signs Verdana 4d Cant Hooker New 4d Cant Hooker New 4d Temp 97.2 F 07/18/21 11:55 Cant Hooker New 4d Pulse 77 07/18/21 15:01 Cant Hooker NewNew 4d Resp 20 07/18/21 11:55 BP 119/62 07/18/21 15:01 Pulse Ox 98 07/18/21 11:55 BMI result Body Mass Index 22.6 Appearing in no acute distress head is normocephalic atraumatic eyes pupils are PERRLA sclera is anicteric mouth throat mucous membranes are intact and moist neck is supple no lymphadenopathy, no JVD noted lung sounds are clear to auscultation heart regular rate rhythm, clear S1, S2 positive bowel sounds, abdomen is soft, nontender neuro patient is alert x3, no focal deficits Right arm tremor with movement Discharge Plan Discharge Anticipated Discharge Date/Time: 07/18/21 14:32 Patient Disposition: Xfer Psychiatric Hosp Discharge Diagnosis: Extrapyramidal symptoms Referrals: Nicolas Godfrey MD [Primary Care Provider] - 1 Week Discharge Medications: New propranolol 10 mg Tablet 10 mg PO TID Qty: 90 RF: 0 Continued fluphenazine decanoate 25 mg/mL solution 100 mg IM Q14D RF: 0 benztropine 1 mg tablet 1 tab PO BID RF: 0 lorazepam 1 mg tablet 1 tab PO DAILY PRN (Reason: Anxiety) RF: 0 Discontinued olanzapine [Zyprexa] 20 mg tablet 20 mg PO BEDTIME RF: 0 Discharge Orders: Discharge Order (Routine); Ordered 07/18/21 Ordered By: Francoise Hernández Diet: advance to usual diet Activity on Discharge: As tolerated Stand Alone Forms: Patient Portal Discharge page Plan of Treatment: You will be treated for your psychiatric illness You will continue to be seen by Physical therapy, speech therapy and Occupational therapy Continue pureed diet as per speech Assessment: see discharge summary
== END 2021-07-18 19:48 | DRG 42 ==
LOC: HO.ED 20:15 → HO.EDOVER 07-07 07:14 → HO.S3 07-09 16:03 → HO.EDOVER 07-09 16:13 → HO.IMC 07-09 16:13
PROVIDERS: Physician Assistant Medical; Registered Nurse; Admitting Provider Internal Medicine; Emergency Provider Emergency Medicine; PCP Internal Medicine; Visit Provider Nurse Practitioner Acute Care
DX: G24.02 Drug induced acute dystonia (principal); F25.0 Schizoaffective disorder, bipolar type; T43.505A Adverse effect of unspecified antipsychotics and neuroleptics, initial encounter; Y92.9 Unspecified place or not applicable; R33.0 Drug induced retention of urine; R13.19 Other dysphagia; T44.3X5A Adverse effect of other parasympatholytics [anticholinergics and antimuscarinics] and spasmolytics, initial encounter; Y92.239 Unspecified place in hospital as the place of occurrence of the external cause; Z91.51 Personal history of suicidal behavior; Z20.822 Contact with and (suspected) exposure to COVID-19; Z87.891 Personal history of nicotine dependence; Z79.899 Other long term (current) drug therapy
CPT/HCPCS: 36415; 70450; 80048; 80076; 81003; 82550; 82728; 83540; 84484; 85025; 85027; 87635; 92610; 93005; 96361; 96374; 97110; 97116; 97162; 97167; 97530; 97535; 99218; 99285; J1650; J2060

== ENCOUNTER 2021-07-18 14:30 | Inpatient (IN) | payer OTHER, SELFPAY ==
--- NOTE | ~2021-07-18 | XR_ITS ---
EXAMINATION: XR CHEST CLINICAL INFORMATION: Rule out aspiration pneumonia. COMPARISON: Chest radiograph dated from 10/12/2020. TECHNIQUE: 2 views of the chest were obtained. FINDINGS: No significant abnormality is noted involving the heart, lungs, mediastinum, bony thorax or soft tissues. XR/XR chest 2V IMPRESSION: Unremarkable examination.
[2021-07-18 20:16] VITALS: BMI 20.6
--- NOTE | 2021-07-18 20:37 | PHA.MEDREC ---
Pharmacy Consult ? Medication Reconciliation Pharmacy has completed the medication reconciliation. Completed during initial visit.
[2021-07-18] MEDS: Nicotine Polacrilex 2 MG GUM BUCCAL (21:06)
--- NOTE | 2021-07-18 21:37 | PC.ADMIT ---
Pt is a 26 year male who presents to from [facility] ED at approx 2027 on a cv status. Pt is covid- tox screen-. Pt has been previously kown to in the past. Pt has outpt supports in the community. Pt has a hx of trauma. Pt has a hx of AH/VH. Pt denies SI/HI/anxiety and depression during admit. Pt has a walker he uses for assistance with his gait. Pt need help with his ADLS. Pt will continue to have follow ups with PT/OT for tremors in RT hand. Pt will contiune to have follow up with Speech and Swallow for advancement in diet. Per chart review, Pt was evaluated on the medical floor where pt has been admitted for the past 10 days due to experiencing a dystonic reaction to a change made to his antipsychotics medication regimen during an inpt psychiatric admission in May 2021. Pt has a walker he uses for assistance with his gait. Pt is on a 1:1 for safety. called for orders and notified of admission. Start treatment plan and monitor for safety.
[2021-07-18 22:38] VITALS: BP 125/68; PULSE 96
[2021-07-18] MEDS: Propranolol HCL 10 MG TABLET PO (22:38)
[2021-07-18] MEDS: amantadine HCL 100 MG CAPSULE PO (22:38)
[2021-07-18] MEDS: Benztropine Mesylate 1 MG TABLET PO (22:39)
[2021-07-18] MEDS: LORazepam 1 MG TABLET PO (22:39)
[2021-07-19] VITALS (7 sets, daily range): BP systolic 107–130; BP diastolic 55–88; PULSE 55–85; RESP 16; TEMP 36.5–36.6; O2SAT 97
[2021-07-19] MEDS: Acetaminophen 325 MG TABLET 650 MG PO (02:04)
[2021-07-19] MEDS: Benztropine Mesylate 1 MG TABLET PO ×3 (02:04→20:50)
[2021-07-19] MEDS: traZODone HCL 50 MG TABLET PO (02:14)
[2021-07-19 09:12] LABS: Alanine Aminotransferase 67 U/L (0-40); Albumin Level 4.3 g/dL (3.5-5.0); Alkaline Phosphatase 59 U/L (39-117); Anion Gap 12 (12-20); Aspartate Amino Transferase 25 U/L (5-37); Bilirubin Total 0.2 mg/dL (0.0-1.0); Blood Urea Nitrogen 17 mg/dL (9-16); Calcium 9.7 mg/dL (8.4-10.2); Carbon Dioxide 31 mmol/L (22-29); Chloride 102 mmol/L (96-108); Creatinine Clr Calc Pharmacy 106.9; Estimated Glomerular Filt Rate > 60; Glucose Fasting 85 mg/dL (60-99); Potassium 4.6 mmol/L (3.3-5.1); Sodium 140 mmol/L (135-145); Total Protein 6.5 g/dL (6.5-8.0)
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
[2021-07-19] MEDS: LORazepam 1 MG TABLET PO ×3 (09:35→20:50)
[2021-07-19] MEDS: Nicotine 14 MG PATCH.TD24 TRANSDERMA (09:35)
[2021-07-19] MEDS: Propranolol HCL 10 MG TABLET PO ×3 (09:35→20:50)
[2021-07-19] MEDS: amantadine HCL 100 MG CAPSULE PO ×2 (09:35→20:50)
[2021-07-19] MEDS: Nicotine Polacrilex 2 MG GUM BUCCAL ×3 (09:51→19:15)
--- NOTE | 2021-07-19 15:29 | PC.NURSE ---
pt signed a 3 day note on 07/19/21, up on Sunday07/22/21
--- NOTE | 2021-07-19 19:33 | MHC.SLORD ---
Speech Language Pathology Order Status: Pt seen for TX at mid day today. In PT INSURANCE CLERK had reported yesterday Pt was eating sandwiches over weekend w/no difficulty. Pt tolerated eating a sandwich ([employer]) with no difficulty, stated he liked sandwiches like PBJ and [employer], which are consistencies more advanced than diet of Puree during inpt admit. At documentation of today's session it was discovered that none of the inpt documents carried over to Psych admit, and repeat BSE was needed. [employer] will need to complete BSE and documentation tomorrow.
[2021-07-20 09:00] VITALS: BP 133/60; PULSE 87; TEMP 37; O2SAT 95
[2021-07-20] MEDS: Nicotine 14 MG PATCH.TD24 TRANSDERMA (09:16)
[2021-07-20] MEDS: amantadine HCL 100 MG CAPSULE PO ×2 (09:17→21:20)
[2021-07-20] MEDS: LORazepam 1 MG TABLET PO ×3 (09:17→21:20)
[2021-07-20] MEDS: Benztropine Mesylate 1 MG TABLET PO ×2 (09:17→21:20)
[2021-07-20 09:22] VITALS: BP 133/60; PULSE 87
[2021-07-20] MEDS: Propranolol HCL 10 MG TABLET PO (09:22)
[2021-07-20] MEDS: Nicotine Polacrilex 2 MG GUM BUCCAL ×2 (09:40→15:18)
--- NOTE | 2021-07-20 10:39 | P.CNNE_ITS ---
History of Present Illness Data of Consult Service Date: 07/20/21 Primary Care Provider: Unknown Physician HPI Reason for consult: Tremor 26 years old man with psychotic disorder treated with multiple antipsychotics including injectables. Recently he was noted to be with acute dystonic reactions and extra pyramidal symptoms and was admitted. After making some changes he was better but continued to have tremor. He did not volunteer any discomfort or any particular symptoms. Review of Systems Review of Systems: Detailed in psychiatric note. [facility] Past Medical History Medical History Anxiety Schizoaffective disorder Surgical History Surgical History No pertinent past surgical history Social History Social History Household Members: Family and None Housing: House Housing Other:: fpc Do you presently have visiting nurse or other home services: No Unable to assess alcohol history related to: Unknown Alcohol intake: unknown Patient Tobacco Use Status: Former Tobacco user Quit Date: 07/18/21 Tobacco use type: Cigarette Cigarette Packs Per Day: 1 Cigarettes Per Day: 20.0 Years Smoked: 8 Smoked in Last 30 Days: No Patient Interested in Nicotine Replacement: Yes Patient Given Instructions on How to Stop Smoking: Yes Date Education Initiated: 07/18/21 Second Hand Smoke Exposure: No Use of substances other than those prescribed or required for medical reasons: Yes Substance Use Type: Marijuana Substance Use Frequency: Monthly Last Used Substance: Unknown Currently Displaying Signs/Symptoms of Drug Intoxication Withdrawal: No Any prior treatment program specific to substance use: No Have you been hit, kicked, punched, or otherwise hurt by someone within the past year? If so, by whom?: No Do you feel safe in your current relationship?: No Current Relationship Is there a partner from a previous relationship who is making you feel unsafe now?: No Are you made to feel afraid or neglected: No Advance Directives: No Advance Directives Information Provided: No Do you have thoughts of harming others: None Do you have a plan to hurt others: No Plan Recently lost weight without trying: Yes How much weight loss: 2-13 pounds Eating poorly because of decreased appetite: Yes Nutrition screen score: 4 Nutrition Risks: Difficulty chewing and On aspiration precautions Poor oral hygiene: No service: No Current occupational status: disabled Sexual orientation: Did not discuss Meds Allergies Allergy/AdvReac Type Severity Reaction Status Date / Time diphenhydramine Allergy Unknown unknown Verified 10/12/20 04:33 [From BENADRYL] haloperidol [From HALDOL] Allergy Unknown unknown Verified 10/12/20 04:33 paliperidone AdvReac Severe dystonia Verified 03/30/21 23:47 Active Medications: Current Medications Acetaminophen (Acetaminophen 325 Mg Tablet) 650 mg PO Q6H PRN PRN Reason: Pain, Mild (Pain Scale 1-3) Last Admin: 07/19/21 02:04 Dose: 650 mg Documented by: Acetaminophen (Acetaminophen 325 Mg Tablet) 650 mg PO Q6H PRN PRN Reason: Headache/Pain Mild Scale (1-3) Al Hydroxide/Mg Hydroxide (Magnesium Hydrox/Alum Hydrox 30 Ml Oral.Susp) 30 ml PO Q6H PRN PRN Reason: Heartburn/Nausea Amantadine HCl (Amantadine Hcl 100 Mg Capsule) 100 mg PO BID [facility] Last Admin: 07/20/21 09:17 Dose: 100 mg Documented by: Artificial Tears (Artificial Tears 15 Ml Drops) 2 drop EYE-BOTH Q4H PRN PRN Reason: dry eyes Benztropine Mesylate (Benztropine Mesylate 1 Mg Tablet) 1 mg PO DAILY PRN PRN Reason: akathesia Last Admin: 07/19/21 02:04 Dose: 1 mg Documented by: Benztropine Mesylate (Benztropine Mesylate 1 Mg Tablet) 1 mg PO BID [facility] Last Admin: 07/20/21 09:17 Dose: 1 mg Documented by: Docusate Sodium (Docusate Sodium 100 Mg Capsule) 100 mg PO DAILY PRN PRN Reason: Constipation Docusate Sodium (Docusate Sodium 100 Mg Capsule) 100 mg PO BEDTIME [facility] Last Admin: 07/19/21 21:19 Dose: Not Given Documented by: Enoxaparin Sodium (Enoxaparin Sodium 40 Mg/0.4 Ml Syringe) 40 mg SUBCUT Q24H [facility] Last Admin: 07/20/21 09:18 Dose: Not Given Documented by: Lorazepam (Lorazepam 1 Mg Tablet) 1 mg PO TID [facility] Last Admin: 07/20/21 09:17 Dose: 1 mg Documented by: Magnesium Hydroxide (Milk Of Magnesia 30 Ml Oral.Susp) 30 ml PO DAILY PRN PRN Reason: Constipation Nicotine (Nicotine 14 Mg Patch.Td24) 14 mg TRANSDERMA DAILY [facility] Last Admin: 07/20/21 09:16 Dose: 14 mg Documented by: Nicotine Polacrilex (Nicotine Polacrilex 2 Mg Gum) 2 mg BUCCAL Q2H PRN PRN Reason: Nicotine Cravings Last Admin: 07/20/21 09:40 Dose: 2 mg Documented by: Pharmacy Consult (Consult Rx Perform Med Rec) 1 each MISCELLANE ONCE PRN PRN Reason: Consult order Polyethylene Glycol (Polyethylene Glycol 3350 17 Gm Powd.Pack) 17 gm PO DAILY PRN PRN Reason: Constipation Propranolol HCl (Propranolol Hcl 10 Mg Tablet) 10 mg PO TID [facility]; Protocol Last Admin: 07/20/21 09:22 Dose: 10 mg Documented by: Sodium Chloride (0.9 % Sodium Chloride Flush 3 Ml Syringe) 3 ml IVFLUSH QSHIFT [facility] Last Admin: 07/20/21 09:15 Dose: Not Given Documented by: Trazodone HCl (Trazodone Hcl 50 Mg Tablet) 50 mg PO BEDTIME PRN PRN Reason: Insomnia Last Admin: 07/19/21 02:14 Dose: 50 mg Documented by: Home Medications Medication Instructions Recorded Confirmed Last Taken Type benztropine 1 mg tablet 1 tab PO BID 07/06/21 07/18/21 07/05/21 History fluphenazine decanoate 25 mg/mL 100 mg IM Q14D 07/06/21 07/18/21 06/29/21 History injection solution lorazepam 1 mg tablet 1 tab PO DAILY PRN 07/06/21 07/18/21 07/05/21 History Physical Exam Vital Signs: Vital Signs: Last Vital Signs Temp 98.6 F 07/20/21 09:00 Pulse 87 07/20/21 09:22 Resp 16 07/19/21 18:00 BP 133/60 07/20/21 09:22 Pulse Ox 95 07/20/21 09:00 BMI result Body Mass Index 20.6 Neuro: Other: Alert and awake with normal spontaneity of speech fluency comprehension and flat affect. Facial expression blinking were somewhat diminished. Mild bilateral hand postural tremor. No definite dystonic movements. Pupils were equal and reactive to light. Face was symmetrical. Tongue was midline. There was no pronator drift. Deep tendon reflexes were trace with flexor plantars. He was able to get up and walk around with somewhat limited arm swing. Results Labs CBC & Chem 7: 07/19/21 08:15 Labs: Noncontrast head CT did not reveal any significant abnormality. CTA of brain was Okay. Assessment and Plan (1) Extrapyramidal symptom: Status: Acute 26 years old man with underlying severe psychotic disorder treated with antipsychotics. At this time he was on fluphenazine. Apparently he had significant extrapyramidal symptomatology and dystonia. After adjustment in medicines he was feeling better but continued to have mild parkinsonism and postural tremor. He was on benztropine 1 mg twice a day. For now, I suggest continuing same dose of benztropine. Increasing dose of medicine for tremor might result in dry mouth dizziness and confusion. Instead, the antipsychotic with lower chance of similar complication is advised. Procedures Date of Service Date of Service: 07/20/21
--- NOTE | 2021-07-20 12:24 | MHC.CLN ---
NUTRITION CONSULT CONSULT FOR DIFFICULTY CHEWING AND SWALLOWING. SHOULD BE BRASS CUTTER CONSULT AND SEE BRASS CUTTER NOTES. CONTINUE ENSURE TID TO PROVIDE [address] AVAILABLE NEEDED BY CONSULT.
--- NOTE | 2021-07-20 12:58 | P.PNPSI_ITS ---
Subjective Subjective Date of Service: 07/20/21 Reason For Visit: psychosis Interim History: Patient reports that he is feeling a little better still. He says that he can move his hands better and feels that he is able to talk more clearly to which radio news writer agrees. He says he is still having some trouble with his feet and legs. Patient still has a tremor and needs assistance toileting. Patient said that he agrees to try Clozaril and would like to try it right away. He says can I started now also I can get out sooner? Relief Map Modeler already reviewed risks/side effects of this medication including but not limited to lowering seizure threshold and low white blood cell count. Patient agrees to having blood draws once a week and thinks that he can probably make sure he is available. Mental Status Exam Mental Status Exam Narrative: Pt is alert and oriented x4; behavior is calm and cooperative; right hand tremor noted; dressed in hospital gown; mood is good Affect brighter, more animated, though still significantly blunted; appropriate eye contact; Speech is monotone, low but volume improving; no dysarthria; thought process is organized, logical and goal directed; Thought content is on tx; he denies SI/HI or AVH; no delusional/paranoid thoughts expressed. Patients insight and judgment appear intact. Diagnostics Vital Signs (24Hr): Vital Signs - 24 hr 07/19/21 13:00 07/19/21 14:49 07/19/21 18:00 Temperature 97.7 F Pulse Rate 77 77 85 Respiratory Rate 16 Blood Pressure 116/62 116/62 130/88 Pulse Oximetry 07/19/21 20:50 07/20/21 09:00 07/20/21 09:22 Temperature 98.6 F Pulse Rate 85 87 87 Respiratory Rate Blood Pressure 130/88 133/60 133/60 Pulse Oximetry 95 BMI result Body Mass Index 20.6 Labs Results: 07/19/21 08:15 Labs: Laboratory Results - last 48 hr 07/19/21 08:15 Sodium 140 Potassium 4.6 Chloride 102 Carbon Dioxide 31 H Anion Gap 12 BUN 17 H Creatinine 1.11 Estim Creat Clear Calc 106.9 Estimated GFR > 60 Fasting Glucose 85 Calcium 9.7 Total Bilirubin 0.2 AST 25 ALT 67 H Alkaline Phosphatase 59 Total Protein 6.5 Albumin 4.3 Medications Medications Current Medications Acetaminophen (Acetaminophen 325 Mg Tablet) 650 mg PO Q6H PRN PRN Reason: Pain, Mild (Pain Scale 1-3) Last Admin: 07/19/21 02:04 Dose: 650 mg Documented by: Acetaminophen (Acetaminophen 325 Mg Tablet) 650 mg PO Q6H PRN PRN Reason: Headache/Pain Mild Scale (1-3) Al Hydroxide/Mg Hydroxide (Magnesium Hydrox/Alum Hydrox 30 Ml Oral.Susp) 30 ml PO Q6H PRN PRN Reason: Heartburn/Nausea Amantadine HCl (Amantadine Hcl 100 Mg Capsule) 100 mg PO BID [facility] Last Admin: 07/20/21 09:17 Dose: 100 mg Documented by: Artificial Tears (Artificial Tears 15 Ml Drops) 2 drop EYE-BOTH Q4H PRN PRN Reason: dry eyes Benztropine Mesylate (Benztropine Mesylate 1 Mg Tablet) 1 mg PO DAILY PRN PRN Reason: akathesia Last Admin: 07/19/21 02:04 Dose: 1 mg Documented by: Benztropine Mesylate (Benztropine Mesylate 1 Mg Tablet) 1 mg PO BID [facility] Last Admin: 07/20/21 09:17 Dose: 1 mg Documented by: Docusate Sodium (Docusate Sodium 100 Mg Capsule) 100 mg PO DAILY PRN PRN Reason: Constipation Docusate Sodium (Docusate Sodium 100 Mg Capsule) 100 mg PO BEDTIME [facility] Last Admin: 07/19/21 21:19 Dose: Not Given Documented by: Enoxaparin Sodium (Enoxaparin Sodium 40 Mg/0.4 Ml Syringe) 40 mg SUBCUT Q24H [facility] Last Admin: 07/20/21 09:18 Dose: Not Given Documented by: Lorazepam (Lorazepam 1 Mg Tablet) 1 mg PO TID [facility] Last Admin: 07/20/21 09:17 Dose: 1 mg Documented by: Magnesium Hydroxide (Milk Of Magnesia 30 Ml Oral.Susp) 30 ml PO DAILY PRN PRN Reason: Constipation Nicotine (Nicotine 14 Mg Patch.Td24) 14 mg TRANSDERMA DAILY [facility] Last Admin: 07/20/21 09:16 Dose: 14 mg Documented by: Nicotine Polacrilex (Nicotine Polacrilex 2 Mg Gum) 2 mg BUCCAL Q2H PRN PRN Reason: Nicotine Cravings Last Admin: 07/20/21 09:40 Dose: 2 mg Documented by: Pharmacy Consult (Consult Rx Perform Med Rec) 1 each MISCELLANE ONCE PRN PRN Reason: Consult order Polyethylene Glycol (Polyethylene Glycol 3350 17 Gm Powd.Pack) 17 gm PO DAILY PRN PRN Reason: Constipation Propranolol HCl (Propranolol Hcl 10 Mg Tablet) 10 mg PO TID [facility]; Protocol Last Admin: 07/20/21 09:22 Dose: 10 mg Documented by: Sodium Chloride (0.9 % Sodium Chloride Flush 3 Ml Syringe) 3 ml IVFLUSH QSHIFT [facility] Last Admin: 07/20/21 09:15 Dose: Not Given Documented by: Trazodone HCl (Trazodone Hcl 50 Mg Tablet) 50 mg PO BEDTIME PRN PRN Reason: Insomnia Last Admin: 07/19/21 02:14 Dose: 50 mg Documented by: Allergies Allergies Allergy/AdvReac Type Severity Reaction Status Date / Time diphenhydramine Allergy Unknown unknown Verified 10/12/20 04:33 [From BENADRYL] haloperidol [From HALDOL] Allergy Unknown unknown Verified 10/12/20 04:33 paliperidone AdvReac Severe dystonia Verified 03/30/21 23:47 Assessment & Plan Assessment & Plan (1) Extrapyramidal symptom: Status: Acute Code(s): R29.818 - Other symptoms and signs involving the nervous system Assessment and Plan: (2) Schizoaffective disorder, bipolar type: Status: Acute Code(s): F25.0 - Schizoaffective disorder, bipolar type Assessment and Plan: This is a 26-year-old male with past medical history of schizoaffective disorder who presents from medical floor following treatment for extrapyramidal symptoms and acute dystonic reaction from administered DAS of fluphenazine decaonate of 100mg on 06/14. Pt has hx of multiple inpatient admissions for psychotic sx, confucianism preoccupation, command AH, impulsive and unsafe bx, paranoid ideations, and agitation. He was last admitted to [facility] after treatment for suicide attempt by self inflicted neck laceration; there he was started on Fluph enazine and subsequently given DAS.? On admission, pt was severely dystonic, rigid, with cogwheeling b/l arms/legs and parkinsonian tremor, unable to attend to ADL's without assistance, including eating, drinking, tolieting, standing or walking, difficulty talking and with a fixed stare. Zyprexa discontinued. Pt was treated with congentin and ativan; pt had some urinary retention which eventually cleared; ?dystonic/EPS symptoms started to clear when started on Amantadine which was tritrated to 100mg BID. Pt is not back to baseline, but can attend to most ADL's on his own or with only some assistance.? Patient denied any SI/HI/AVH and did not expressed any paranoid/delusional ideations; thought process is linear and goal directed. On admission to patient continues to deny any SI/HI/AVH and denies any delusional/paranoid ideations. He says he knows he's had these symptoms in the past but they are not present now. Pt is ambivalent about restarting antipsychotics given his recent experience of side-effect but also due his limited insight into the extent of his psychiatric illness. Patient says he did not come to the hospital this time for being unsafe but for a medication side-effect. He acknowledges that he could again become delusional but if so that will be his problem to deal with. He was willing to entertain Clozapine but does not think he'll really be available for weekly blood draws. Patient says that his outpt provider Dr. Light told him not to take any antipsychotics for now and he says he wants to wait for Dr. Light recommendations before restarting any medications. He asks to sign a 3 day notice, but says he will rescind it if he's not back to his baseline physical condition.? pt is currently stable, w/out psychosis or anna; currently he is benefiting from effects of DAS however, this will likely wear off soon. Off medications patient has history of quickly becoming disorganized, manic, psychotic and suicidal. 07/20 Patient at 1st ambivalent however he decided to have a trial of clozapine and agrees to get blood draws once a week even though it will mildly curb his enthusiastically pursued outdoor adventures. Relief Map Modeler discussed case with Dr. Jerez who agrees with trial of clozapine as it has a very low risk for EPS/dystonia, is good for refractory psychotic illness (patient has failed Abilify, Haldol, Invega, Seroquel, fluphenazine, ziprasidone, Zyprexa (which is only partially helpful and patient reports it causes tremor)) and helpful for suicidality. Relief Map Modeler spoke with patient's outpatient [facility] nurse Camelia ([phone]) who is hopeful this can work and thinks the team can come up with a plan to accommodate patient getting this medication. PLAN: pt on 3 day 1. EPS/Dystonia: patient on 1:1 for milue safety (pt has hx of being inappropriate with female staff) continue amantadine 100 mg BID continue ativan 1mg TID Cogentin 1 mg b.i.d. Propranolol 10 mg t.i.d. Will DC Lovenox as patient refuses this medication and is actively ambulating on his own on the unit Pt/OT daily currently on puree food Speech eval to assess for advancement to solid foods -Dr. Link: continued to have mild parkinsonism and postural tremor. He was on benztropine 1 mg twice a day. For now, I suggest continuing same dose of benztropine. Increasing dose of medicine for tremor might result in dry mouth dizziness and confusion. Instead, the antipsychotic with lower chance of similar complication is advised. 2. Schizoaffective DO: pt agrees to trial of Clozapine including 1/week blood draws will get CBC w/ diff today and then weekly; register pt in [facility] Start trial of Clozapine 12.5mg BID Reason for continued inpatient stay Substantial Risk for: inability to function and rapid decompensation I spent minutes with the patient and/or on the patient floor today, greater than?50% of which was spent counseling/coordinating care. Reason for contiued inpatient stay Substantial Risk for: rapid decompensation
[2021-07-20 13:00] VITALS: BP 109/54; PULSE 80
[2021-07-20 13:18] LABS: MANUAL DIFF FLAG NO
[2021-07-20 13:20] LABS: Basophils Absolute Auto 0.1 X10*3/uL (0.0-0.2); Basophils Percent Auto 0.6 % (0-2); Eosinophils Absolute Auto 0.2 X10*3/uL (0.0-0.4); Eosinophils Percent Auto 2.2 % (0-4); Hemoglobin 14.7 g/dl (14.0-18.0); Imm Gran Abs Auto 0.07 X10*3/uL (0.00-0.03); Imm Gran Pct Auto 0.8 % (0.0-0.4); Lymphocytes Absolute Auto 1.8 X10*3/uL (1.2-4.9); Lymphocytes Percent Auto 20.2 % (20-40); Mean Corpuscular Hemoglobin 31.5 pg (27.0-33.0); Mean Corpuscular Volume 89.9 fL (80.0-98.0); Mean Platelet Volume 9.2 fL (9.4-12.4); Monocytes Absolute Auto 0.7 X10*3/uL (0.1-1.2); Monocytes Percent Auto 7.2 % (2-11); Neutrophils Absolute Auto 6.3 x10*3/uL (2.0-8.3); Platelet Count 258 X10*3/uL (160-400); Red Blood Count 4.67 X10*6/uL (4.60-5.80); Red Cell Distribution Width 11.8 % (11.0-16.0); White Blood Count 9.1 X10*3/uL (4.8-10.8)
[2021-07-20] MEDS: cloZAPine 25 MG TABLET 12.5 MG PO ×2 (15:12→21:20)
[2021-07-20 15:17] VITALS: BP 109/54; PULSE 80
--- NOTE | 2021-07-20 17:30 | MHC.SL.SWA ---
Dysphasia Diet Status: UPGRADE Liquid Consistency and Strategies for Safe Swallow: Liquid Intake Recommendation: Thin Liquid Intake Strategies: Small Sips Solid Food Consistency: Dietary Recommendations: Chopped/Advanced (NDD3) Additional Modifications to Solid Foods: Recommend UPGRADE to CHOPPED/ADVANCED (NDD3) solids and maintain THIN liquids, with pills WHOLE in LIQUID or PUREE. Patient is able to feed himself, but may benefit from assistance with tray set up. Continue aspiration precautions. Diet order updated in [facility] by DIRECTOR RISK. and RD notified by [facility]. DIRECTOR RISK to continue to follow. Oral Medication Intake: Whole with Puree Compensatory Strategies and Precautions to be Taken for Safe Swallow: Sitting Upright (90 deg) Small Bites and Sips Alternate Liquids/Solids Rate of Ingestion Change Avoid Specific Foods Supervision While Eating and Drinking for Safe Swallow: Total Supervision (1:1) Foods to Avoid: Tough, difficult to chew solids Swallowing Recommended Treatments: Compens. Strategy Educat. Recommendation for Speech: DIRECTOR RISK will follow. Cash Van Salesperson Clinican/Clinical Fellow: No Supervisory Statement: I have reviewed and agree with the student/clinical fellow's documentation: N/A Speech Language Pathologist: Angelica Claire M.A., [facility]-DIRECTOR RISK
[2021-07-20 18:00] VITALS: BP 104/53; PULSE 83; RESP 16; TEMP 36.6; O2SAT 99
[2021-07-20 21:36] VITALS: BP 104/52; PULSE 83
--- NOTE | 2021-07-20 23:30 | PC.NURSE ---
This nurse spoke w/ patient regarding flu vaccine. PT refuses flu vaccine at this time.
[2021-07-21 08:41] VITALS: BP 115/54; PULSE 92; RESP 16; TEMP 37.9; O2SAT 97
[2021-07-21] MEDS: Propranolol HCL 10 MG TABLET PO ×3 (09:03→21:22)
[2021-07-21] MEDS: LORazepam 1 MG TABLET PO ×3 (09:03→21:20)
[2021-07-21] MEDS: Benztropine Mesylate 1 MG TABLET PO ×2 (09:03→21:20)
[2021-07-21] MEDS: amantadine HCL 100 MG CAPSULE PO ×2 (09:03→21:20)
[2021-07-21 09:04] LABS: COVID-19 Test Negative (Negative); IDNOW Serial# 9DD0AD1C
[2021-07-21] MEDS: Nicotine 14 MG PATCH.TD24 TRANSDERMA (09:04)
[2021-07-21 09:53] LABS: MANUAL DIFF FLAG NO
[2021-07-21 09:57] LABS: Basophils Absolute Auto 0.1 X10*3/uL (0.0-0.2); Basophils Percent Auto 0.3 % (0-2); Eosinophils Absolute Auto 0.1 X10*3/uL (0.0-0.4); Eosinophils Percent Auto 0.8 % (0-4); Hematocrit 41.3 % (42.0-52.0); Hemoglobin 14.6 g/dl (14.0-18.0); Imm Gran Abs Auto 0.08 X10*3/uL (0.00-0.03); Imm Gran Pct Auto 0.5 % (0.0-0.4); Lymphocytes Absolute Auto 1.6 X10*3/uL (1.2-4.9); Lymphocytes Percent Auto 9.2 % (20-40); Mean Corpuscular HGB Conc 35.4 g/dl (31.0-36.0); Mean Corpuscular Hemoglobin 31.9 pg (27.0-33.0); Mean Corpuscular Volume 90.4 fL (80.0-98.0); Mean Platelet Volume 9.6 fL (9.4-12.4); Monocytes Absolute Auto 1.5 X10*3/uL (0.1-1.2); Monocytes Percent Auto 8.6 % (2-11); Neutrophils Absolute Auto 13.9 x10*3/uL (2.0-8.3); Neutrophils Percent Auto 80.6 % (45-73); Platelet Count 234 X10*3/uL (160-400); Red Blood Count 4.57 X10*6/uL (4.60-5.80); Red Cell Distribution Width 11.8 % (11.0-16.0); White Blood Count 17.2 X10*3/uL (4.8-10.8)
--- NOTE | 2021-07-21 10:35 | P.PNPSI_ITS ---
Subjective Subjective Date of Service: 07/21/21 Reason For Visit: psychosis Interim History: pt verbally rescinded 3 day notice (3 witness: lead technical writer, GABI Rausch, MHworker) Pt reported feeling tired today, but denies any pain or discomfort. Denies any head or neck pain. He is sleepy but fully oriented on assessment. Pt understands that he has a temp and elevated WBC and so rescinded his 3 day wanting to remain for treatment. Pt denies any SI/HI/AVH and remains linear, goal oriented Today, pt was mildly febrile 100.2, mildly tachy HR 92 with elevated WBC 71512; meets SIRS criteria Clozapine held (only got 12.5mg bid yesterday) battery of labs ordered CXR ordered since pt has been at risk for aspiration Pneumonia (though denies respiratory complaints) Hospitalist consult placed and lead technical writer discussed case with Dr. Mojica. Mental Status Exam Mental Status Exam Narrative: Pt is alert and oriented x4; behavior is calm and cooperative; right hand tremor noted; dressed in hospital gown; mood is tired Affect sleepy (still significantly blunted); eyes mostly closed; Speech is monotone, low, but volume improving; no dysarthria; thought process is organized, logical and goal directed; Thought content is on tx; he denies SI/HI or AVH; no delusional/paranoid thoughts expressed. Patients insight and judgment appear intact. Diagnostics Vital Signs (24Hr): Vital Signs - 24 hr 07/20/21 13:00 07/20/21 15:17 07/20/21 18:00 Temperature 98 F Pulse Rate 80 80 83 Respiratory Rate 16 Blood Pressure 109/54 L 109/54 L 104/53 L Pulse Oximetry 99 07/20/21 21:36 07/21/21 08:41 Temperature 100.2 F Pulse Rate 83 92 Respiratory Rate 16 Blood Pressure 104/52 L 115/54 L Pulse Oximetry 97 BMI result Body Mass Index 20.6 Labs Results: 07/21/21 08:54 07/21/21 12:08 Labs: Laboratory Results - last 48 hr 07/20/21 07/21/21 07/21/21 13:13 08:35 08:54 WBC 9.1 17.2 H RBC 4.67 4.57 L Hgb 14.7 14.6 Hct 42.0 41.3 L MCV 89.9 90.4 MCH 31.5 31.9 MCHC 35.0 35.4 RDW 11.8 11.8 Plt Count 258 234 MPV 9.2 L 9.6 Immature Gran % (Auto) 0.8 H 0.5 H Neut % (Auto) 69.0 80.6 H Lymph % (Auto) 20.2 9.2 L Mcduffie % (Auto) 7.2 8.6 Eos % (Auto) 2.2 0.8 Baso % (Auto) 0.6 0.3 Lymph # (Auto) 1.8 1.6 [place]duffie # (Auto) 0.7 1.5 H Eos # (Auto) 0.2 0.1 Baso # (Auto) 0.1 0.1 Abs Immat Gran (auto) 0.07 H 0.08 H Absolute Neuts (auto) 6.3 13.9 H Absolute Nucleated RBC 0.000 0.000 Nucleated RBC % (auto) 0.0 0.0 COVID-19 (ALAN) Negative COVID-19 Clin Com See Note Medications Medications Current Medications Acetaminophen (Acetaminophen 325 Mg Tablet) 650 mg PO Q6H PRN PRN Reason: Pain, Mild (Pain Scale 1-3) Last Admin: 07/19/21 02:04 Dose: 650 mg Documented by: Al Hydroxide/Mg Hydroxide (Magnesium Hydrox/Alum Hydrox 30 Ml Oral.Susp) 30 ml PO Q6H PRN PRN Reason: Heartburn/Nausea Amantadine HCl (Amantadine Hcl 100 Mg Capsule) 100 mg PO BID [facility] Last Admin: 07/21/21 09:03 Dose: 100 mg Documented by: Artificial Tears (Artificial Tears 15 Ml Drops) 2 drop EYE-BOTH Q4H PRN PRN Reason: dry eyes Benztropine Mesylate (Benztropine Mesylate 1 Mg Tablet) 1 mg PO BID [facility] Last Admin: 07/21/21 09:03 Dose: 1 mg Documented by: Clozapine (Clozapine 25 Mg Tablet) 12.5 mg PO BID [facility] Last Admin: 07/21/21 09:08 Dose: Not Given Documented by: Docusate Sodium (Docusate Sodium 100 Mg Capsule) 100 mg PO DAILY PRN PRN Reason: Constipation Docusate Sodium (Docusate Sodium 100 Mg Capsule) 100 mg PO BEDTIME [facility] Last Admin: 07/20/21 20:40 Dose: Not Given Documented by: Lorazepam (Lorazepam 1 Mg Tablet) 1 mg PO TID [facility] Last Admin: 07/21/21 09:03 Dose: 1 mg Documented by: Magnesium Hydroxide (Milk Of Magnesia 30 Ml Oral.Susp) 30 ml PO DAILY PRN PRN Reason: Constipation Nicotine (Nicotine 14 Mg Patch.Td24) 14 mg TRANSDERMA DAILY [facility] Last Admin: 07/21/21 09:04 Dose: 14 mg Documented by: Nicotine Polacrilex (Nicotine Polacrilex 2 Mg Gum) 2 mg BUCCAL Q2H PRN PRN Reason: Nicotine Cravings Last Admin: 07/20/21 15:18 Dose: 2 mg Documented by: Pharmacy Consult (Consult Rx Perform Med Rec) 1 each MISCELLANE ONCE PRN PRN Reason: Consult order Polyethylene Glycol (Polyethylene Glycol 3350 17 Gm Powd.Pack) 17 gm PO DAILY PRN PRN Reason: Constipation Propranolol HCl (Propranolol Hcl 10 Mg Tablet) 10 mg PO TID [facility]; Protocol Last Admin: 07/21/21 09:03 Dose: 10 mg Documented by: Trazodone HCl (Trazodone Hcl 50 Mg Tablet) 50 mg PO BEDTIME PRN PRN Reason: Insomnia Last Admin: 07/19/21 02:14 Dose: 50 mg Documented by: Allergies Allergies Allergy/AdvReac Type Severity Reaction Status Date / Time diphenhydramine Allergy Unknown unknown Verified 10/12/20 04:33 [From BENADRYL] haloperidol [From HALDOL] Allergy Unknown unknown Verified 10/12/20 04:33 paliperidone AdvReac Severe dystonia Verified 03/30/21 23:47 Assessment & Plan Assessment & Plan (1) Extrapyramidal symptom: Status: Acute Code(s): R29.818 - Other symptoms and signs involving the nervous system Assessment and Plan: (2) Schizoaffective disorder, bipolar type: Status: Acute Code(s): F25.0 - Schizoaffective disorder, bipolar type Assessment and Plan: This is a 26-year-old male with past medical history of schizoaffective disorder who presents from medical floor following treatment for extrapyramidal symptoms and acute dystonic reaction from administered DAS of fluphenazine decaonate of 100mg on 06/14. Pt has hx of multiple inpatient admissions for psychotic sx, moravian preoccupation, command AH, impulsive and unsafe bx, paranoid ideations, and agitation. He was last admitted to [facility] after treatment for suicide attempt by self inflicted neck laceration; there he was started on Fluphenazine and subsequently given DAS.? On admission, pt was severely dystonic, rigid, with cogwheeling b/l arms/legs and parkinsonian tremor, unable to attend to ADL's without assistance, including eating, drinking, tolieting, standing or walking, difficulty talking and with a fixed stare. Zyprexa discontinued. Pt was treated with congentin and ativan; pt had some urinary retention which eventually cleared; ?dystonic/EPS symptoms started to clear when started on Amantadine which was tritrated to 100mg BID. Pt is not back to baseline, but can attend to most ADL's on his own or with only some assistance.? Patient denied any SI/HI/AVH and did not expressed any paranoid/delusional ideations; thought process is linear and goal directed. On admission to patient continues to deny any SI/HI/AVH and denies any delusional/paranoid ideations. He says he knows he's had these symptoms in the past but they are not present now. Pt is ambivalent about restarting antipsychotics given his recent experience of side-effect but also due his limited insight into the extent of his psychiatric illness. Patient says he did not come to the hospital this time for being unsafe but for a medication side-effect. He acknowledges that he could again become delusional but if so that will be his problem to deal with. He was willing to entertain Clozapine but does not think he'll really be available for weekly blood draws. Patient says that his outpt provider Dr. Light told him not to take any antipsychotics for now and he says he wants to wait for Dr. Light recommendations before restarting any medications. He asks to sign a 3 day notice, but says he will rescind it if he's not back to his baseline p hysical condition.? pt is currently stable, w/out psychosis or anna; currently he is benefiting fr om effects of DAS however, this will likely wear off soon. Off medications patient has history of quickly becoming disorganized, manic, psychotic and suicidal. 07/20 Patient at 1st ambivalent however he decided to have a trial of clozapine and agrees to get blood draws once a week even though it will mildly curb his enthusiastically pursued outdoor adventures. Electronic Device Monitor discussed case with Dr. Cole ponce who agrees with trial of clozapine as it has a very low risk for EPS/dystonia, is good for refractory psychotic illness (patient has failed Abilify, Haldol, Invega, Seroquel, fluphenazine, ziprasidone, Zyprexa (which is only partially helpful and patient reports it causes tremor)) and helpful for suicidality. Electronic Device Monitor spoke with patient's outpatient [facility] nurse Camelia ([phone]) who is hopeful this can work and thinks the team can come up with a plan to accommodate patient getting this medication. 07/20 Today, pt was mildly febrile 100.2, mildly tachy HR 92 with elevated WBC 17729; meets SIRS criteria see below for workup; otherwise, remains psychiatrically stable; dystonia/EPS continue to lessen PLAN: On CV (Rescinded 3 day on 07/20) 1. SIRS: mildly febrile, elevated WBC, mildly tachy: r/o infectious process vs med reaction... 07/20 pt mildly febrile 100.2, mildly tachy HR 92 with elevated WBC 15740; meets SIRS criteria Clozapine held (only got 12.5mg bid yesterday) CXR ordered since pt has been at risk for aspiration Pneumonia (though denies respiratory complaints) -Hospitalist consult placed and lead technical writer discussed case with Dr. Mojica who sa w patient, reviewed labs and determined that there is no clear source of infection and to hold of empirically starting abx; hospitalist will continue to monitor -NMS very unlikely: pt currently recovering from dystonic med reaction/EPS and he continues to consistently be less ridged daily; pt is hemodynamically stable and temp resolved; LDH wnl; no delirium; while pt is generally sensitive to dys irvin, clozaril is very low risk for causing and only a low dose given 12.5mg BID on 07/19; none on 07/20. Electronic Device Monitor could not find any literature to support Clozapine induced Leukocytosis; discussed with Dr. Jerez who is on-call this weekend and who agrees to hold Clozapine for now, but to likely restart once WBC/lactic acid return to within normal limits. Results: -Lactic acid elevated and trended upward; will repeat CXR: wnl UA: wnl other labs wnl covid/influenza/RSV Neg LDH: WNL Plan: -repeat CBC -repeat Lactic acid -hospitalist following -HOLD Clozaril for now; will restart as Leukocytosis/lactic acid resolves 2. EPS/Dystonia: improving patient on 1:1 for milue safety (pt has hx of being inappropriate with female staff) continue amantadine 100 mg BID continue ativan 1mg TID Cogentin 1 mg b.i.d. Propranolol 10 mg t.i.d. DC Lovenox as patient refuses this medication and is actively ambulating on his own on the unit Pt/OT daily Speech eval advanced to solid foods -Dr. Link on 07/19: continued to have mild parkinsonism and postural tremor. He was on benztropine 1 mg twice a day. For now, I suggest continuing same dose of benztropine. Increasing dose of medicine for tremor might result in dry mouth dizziness and confusion. Instead, the antipsychotic with lower chance of similar complication is advised. 3. Schizoaffective DO: pt agrees to trial of Clozapine including 1/week blood draws will get CBC w/ diff today and then weekly; register pt in [facility] HOLD Clozapine 12.5mg BID as leukocytosis clears Reason for continued inpatient stay Substantial Risk for: inability to function and rapid decompensation I spent minutes with the patient and/or on the patient floor today, greater than?50% of which was spent counseling/coordinating care. Reason for contiued inpatient stay Substantial Risk for: med/psych decompensation
[2021-07-21 11:12] LABS: Influenza A PCR NEGATIVE (Negative); Influenza B PCR NEGATIVE (Negative); Resp Syncy Virus RNA Qual PCR NEGATIVE (Negative); SARS COV2 PCR INHOUSE NEGATIVE (Negative)
[2021-07-21 12:38] LABS: Lactic Acid 2.8 mmol/L (0.5-2.0)
[2021-07-21 12:42] LABS: Alanine Aminotransferase 58 U/L (0-40); Albumin Level 4.2 g/dL (3.5-5.0); Alkaline Phosphatase 67 U/L (39-117); Anion Gap 13 (12-20); Aspartate Amino Transferase 20 U/L (5-37); Bilirubin Direct < 0.2 mg/dL (0.0-0.5); Bilirubin Total 0.5 mg/dL (0.0-1.0); Blood Urea Nitrogen 17 mg/dL (9-16); Carbon Dioxide 27 mmol/L (22-29); Chloride 103 mmol/L (96-108); Creatinine Clr Calc Pharmacy 117.5; Estimated Glomerular Filt Rate > 60; Lipase 53 U/L (8-78); Potassium 4.1 mmol/L (3.3-5.1); Sodium 139 mmol/L (135-145); Total Protein 6.8 g/dL (6.5-8.0)
[2021-07-21 12:51] LABS: Lactate Dehydrogenase 165 U/L (118-273)
--- NOTE | 2021-07-21 13:16 | P.CONIM_ITS ---
History of Present Illness Data of Consult Service Date: 07/21/21 Primary Care Provider: Unknown Physician HPI Reason for consult: fever, elevated WBCs a 26 years old male with a history of anxiety as well as schizoaffective disorder who was recently discharged from the hospital to the psych floor for tardive dyskinesia, dystonia and EPS picture. Started on a clozapine yesterday and this morning he was found to have low-grade fever associated with abnormal blood work of leukocytosis and lactic acidosis. The patient himself denies any fever, chills, cough, shortness of breath, chest pain, nausea, vomiting or change in bowel habit or any urinary symptoms. There is no rash or wound is complaining of. Hospitalist team were asked to evaluate the patient for possibility of infection. Review of Systems Review of Systems: No fever, chills or weakness No chest pain, palpitation No shortness of breath or coughing No abdominal pain, nausea or vomiting No urinary symptoms No any rash or wounds PMFSH Medical History Anxiety Schizoaffective disorder Surgical History No pertinent past surgical history Social History Household Members: Family and None Housing: House Housing Other:: assisted Do you presently have visiting nurse or other home services: No Unable to assess alcohol history related to: Unknown Alcohol intake: unknown Patient Tobacco Use Status: Former Tobacco user Quit Date: 07/18/21 Tobacco use type: Cigarette Cigarette Packs Per Day: 1 Cigarettes Per Day: 20.0 Years Smoked: 8 Smoked in Last 30 Days: No Patient Interested in Nicotine Replacement: Yes Patient Given Instructions on How to Stop Smoking: Yes Date Education Initiated: 07/18/21 Second Hand Smoke Exposure: No Use of substances other than those prescribed or required for medical reasons: Yes Substance Use Type: Marijuana Substance Use Frequency: Monthly Last Used Substance: Unknown Currently Displaying Signs/Symptoms of Drug Intoxication Withdrawal: No Any prior treatment program specific to substance use: No Have you been hit, kicked, punched, or otherwise hurt by someone within the past year? If so, by whom?: No Do you feel safe in your current relationship?: No Current Relationship Is there a partner from a previous relationship who is making you feel unsafe now?: No Are you made to feel afraid or neglected: No Advance Directives: No Advance Directives Information Provided: No Do you have thoughts of harming others: None Do you have a plan to hurt others: No Plan Recently lost weight without trying: Yes How much weight loss: 2-13 pounds Eating poorly because of decreased appetite: Yes Nutrition screen score: 4 Nutrition Risks: Difficulty chewing and On aspiration precautions Poor oral hygiene: No service: No Current occupational status: disabled Sexual orientation: Did not discuss Meds Allergies Allergy/AdvReac Type Severity Reaction Status Date / Time diphenhydramine Allergy Unknown unknown Verified 10/12/20 04:33 [From BENADRYL] haloperidol [From HALDOL] Allergy Unknown unknown Verified 10/12/20 04:33 paliperidone AdvReac Severe dystonia Verified 03/30/21 23:47 Active Medications: Current Medications Acetaminophen (Acetaminophen 325 Mg Tablet) 650 mg PO Q6H PRN PRN Reason: Pain, Mild (Pain Scale 1-3) Last Admin: 07/19/21 02:04 Dose: 650 mg Documented by: Al Hydroxide/Mg Hydroxide (Magnesium Hydrox/Alum Hydrox 30 Ml Oral.Susp) 30 ml PO Q6H PRN PRN Reason: Heartburn/Nausea Amantadine HCl (Amantadine Hcl 100 Mg Capsule) 100 mg PO BID [facility] Last Admin: 07/21/21 09:03 Dose: 100 mg Documented by: Artificial Tears (Artificial Tears 15 Ml Drops) 2 drop EYE-BOTH Q4H PRN PRN Reason: dry eyes Benztropine Mesylate (Benztropine Mesylate 1 Mg Tablet) 1 mg PO BID [facility] Last Admin: 07/21/21 09:03 Dose: 1 mg Documented by: Clozapine (Clozapine 25 Mg Tablet) 12.5 mg PO BID [facility] Last Admin: 07/21/21 09:08 Dose: Not Given Documented by: Docusate Sodium (Docusate Sodium 100 Mg Capsule) 100 mg PO DAILY PRN PRN Reason: Constipation Docusate Sodium (Docusate Sodium 100 Mg Capsule) 100 mg PO BEDTIME [facility] Last Admin: 07/20/21 20:40 Dose: Not Given Documented by: Lorazepam (Lorazepam 1 Mg Tablet) 1 mg PO TID [facility] Last Admin: 07/21/21 09:03 Dose: 1 mg Documented by: Magnesium Hydroxide (Milk Of Magnesia 30 Ml Oral.Susp) 30 ml PO DAILY PRN PRN Reason: Constipation Nicotine (Nicotine 14 Mg Patch.Td24) 14 mg TRANSDERMA DAILY [facility] Last Admin: 07/21/21 09:04 Dose: 14 mg Documented by: Nicotine Polacrilex (Nicotine Polacrilex 2 Mg Gum) 2 mg BUCCAL Q2H PRN PRN Reason: Nicotine Cravings Last Admin: 07/20/21 15:18 Dose: 2 mg Documented by: Pharmacy Consult (Consult Rx Perform Med Rec) 1 each MISCELLANE ONCE PRN PRN Reason: Consult order Polyethylene Glycol (Polyethylene Glycol 3350 17 Gm Powd.Pack) 17 gm PO DAILY PRN PRN Reason: Constipation Propranolol HCl (Propranolol Hcl 10 Mg Tablet) 10 mg PO TID [facility]; Protocol Last Admin: 07/21/21 09:03 Dose: 10 mg Documented by: Trazodone HCl (Trazodone Hcl 50 Mg Tablet) 50 mg PO BEDTIME PRN PRN Reason: Insomnia Last Admin: 07/19/21 02:14 Dose: 50 mg Documented by: Home Medications Medication Instructions Recorded Confirmed Last Taken Type benztropine 1 mg tablet 1 tab PO BID 07/06/21 07/18/21 07/05/21 History fluphenazine decanoate 25 mg/mL 100 mg IM Q14D 07/06/21 07/18/21 06/29/21 History injection solution lorazepam 1 mg tablet 1 tab PO DAILY PRN 07/06/21 07/18/21 07/05/21 History Physical Exam Vital Signs and Narrative: Vital Signs: Last Vital Signs Temp 100.2 F 07/21/21 08:41 Pulse 92 07/21/21 08:41 Resp 16 07/21/21 08:41 BP 115/54 L 07/21/21 08:41 Pulse Ox 97 07/21/21 08:41 BMI result Body Mass Index 20.6 Const: Other: Constitutional : Alert, oriented, not in distress Neck : Normal inspection, Supple, has wax in his ears Cardiovascular : RRR, S1 S2, no lower extremity edema Respiratory : Good bilateral air entry, no crackles, wheezes or rhonchi Gastrointestinal: soft, lax, Normal bowel sounds, Non tender Skin : Warm, Dry Neurological : Alert & oriented x3, No focal deficit Results Labs CBC and Chem 7: 07/21/21 08:54 07/21/21 12:08 Labs: Laboratory Results - last 24 hr 07/20/21 07/21/21 07/21/21 13:13 08:35 08:54 MCV 89.9 90.4 MCH 31.5 31.9 MCHC 35.0 35.4 RDW 11.8 11.8 Plt Count 258 234 MPV 9.2 L 9.6 Immature Gran % (Auto) 0.8 H 0.5 H Neut % (Auto) 69.0 80.6 H Lymph % (Auto) 20.2 9.2 L [place] % (Auto) 7.2 8.6 Eos % (Auto) 2.2 0.8 Baso % (Auto) 0.6 0.3 Lymph # (Auto) 1.8 1.6 [place] # (Auto) 0.7 1.5 H Eos # (Auto) 0.2 0.1 Baso # (Auto) 0.1 0.1 Abs Immat Gran (auto) 0.07 H 0.08 H Absolute Neuts (auto) 6.3 13.9 H Absolute Nucleated RBC 0.000 0.000 Nucleated RBC % (auto) 0.0 0.0 Anion Gap Estim Creat Clear Calc Estimated GFR Lactic Acid Total Bilirubin Direct Bilirubin AST ALT Alkaline Phosphatase Lactate Dehydrogenase Total Protein Albumin Lipase COVID-19 ([facility]) Negative COVID-19 Clin Com See Note Influenza Type A (PCR) Influenza Type B (PCR) RSV RNA Qual (PCR) SARS-CoV-2 RNA (RT-PCR) 07/21/21 07/21/21 07/21/21 10:15 12:08 12:08 MCV MCH MCHC RDW Plt Count MPV Immature Gran % (Auto) Neut % (Auto) Lymph % (Auto) [place] % (Auto) Eos % (Auto) Baso % (Auto) Lymph # (Auto) [place] # (Auto) Eos # (Auto) Baso # (Auto) Abs Immat Gran (auto) Absolute Neuts (auto) Absolute Nucleated RBC Nucleated RBC % (auto) Anion Gap 13 Estim Creat Clear Calc 117.5 Estimated GFR > 60 Lactic Acid 2.8 H* Total Bilirubin 0.5 Direct Bilirubin < 0.2 AST 20 ALT 58 H Alkaline Phosphatase 67 Lactate Dehydrogenase 165 Total Protein 6.8 Albumin 4.2 Lipase 53 COVID-19 ([facility]) COVID-19 Clin Com Influenza Type A (PCR) NEGATIVE Influenza Type B (PCR) NEGATIVE RSV RNA Qual (PCR) NEGATIVE SARS-CoV-2 RNA (RT-PCR) NEGATIVE Imaging Radiologist's Impressions: Impressions Chest X-Ray 07/21/21 12:22 IMPRESSION: Unremarkable examination. Assessment and Plan (1) Fever: Status: Acute (2) Lactic acidosis: Status: Acute (3) Leukocytosis: Status: Acute a 26 years old male with a history of anxiety as well as schizoaffective disorder who was recently discharged from the hospital to the psych floor developed low-grade fever and bili WBCs. Low-grade fever Elevated WBCs Lactic acidosis No clear source of infection identified, patient is not septic CXR negative His able to pass urine, to get a sample blood culture sent, to monitor Seems to be a result of starting clozapine which is known to goes fever, leukocytosis and metabolic disturbances Hold on antibiotics Will continue to monitor the patient with psychiatry team To repeat test tomorrow morning Thank you for the consult, will continue to monitor the patient with you.
[2021-07-21 14:17] LABS: Reflex Lactate? Lactic Acid Added
[2021-07-21 15:12] LABS: ~Lactic Acid-LAB USE ONLY 2.7 mmol/L (0.5-2.0)
[2021-07-21 15:19] VITALS: BP 114/56; PULSE 108
[2021-07-21] MEDS: Nicotine Polacrilex 2 MG GUM BUCCAL ×3 (15:19→21:29)
[2021-07-21] MEDS: Carbamide Peroxide 6.5% Otic 15 ML DRPBTL 5 DROP EAR-BOTH ×2 (15:20→21:23)
[2021-07-21 15:25] VITALS: BP 114/56; PULSE 108; RESP 16; TEMP 37.5; O2SAT 95
[2021-07-21 16:32] LABS: Appearance Urine CLEAR; Color Urine YELLOW; Glucose Urine UA NEG (NEG); Leukocyte Esterase Urine NEG (NEG); Nitrite Urine NEG (NEG); Specific Gravity - Urine 1.025 (1.005-1.025); Urine Blood NEG (NEG); Urine Ketones 5 MG/DL (NEG); Urine Protein NEG (NEG-TRACE)
[2021-07-21 16:52] LABS: Reflex Lactate? 2 Y
[2021-07-21 16:53] LABS: RBC Urine 0 /HPF (0); Renal Epithelial Cells Urine 1+ /LPF
[2021-07-21 17:49] LABS: ~Lactic Acid-LAB USE ONLY 3.2 mmol/L (0.5-2.0)
[2021-07-21 18:00] VITALS: BP 111/65; PULSE 106; TEMP 36.9
--- NOTE | 2021-07-21 18:03 | PC.NURSE ---
Critical Lactic acid 3.2 reported from Celsa in lab. software tools build engineer Tyron notified of results.
--- NOTE | 2021-07-21 19:31 | PC.NURSE ---
Pt had a critical lab of 3.2 lactic acid. Hospitalist Miesha Montgomery contacted and consulted with DR neir and both agreed to defer fluids at this point. Pt encouraged to drink fluids
[2021-07-21 21:22] VITALS: BP 137/91; PULSE 108
[2021-07-21] MEDS: Docusate Sodium 100 MG CAPSULE PO (21:22)
[2021-07-22 09:00] VITALS: BP 109/51; PULSE 97; RESP 16; TEMP 36.8; O2SAT 99
[2021-07-22] MEDS: amantadine HCL 100 MG CAPSULE PO ×2 (09:33→21:04)
[2021-07-22] MEDS: LORazepam 1 MG TABLET PO ×3 (09:33→21:04)
[2021-07-22] MEDS: Benztropine Mesylate 1 MG TABLET PO ×2 (09:33→21:04)
[2021-07-22 09:44] VITALS: BP 109/51; PULSE 97
[2021-07-22] MEDS: Nicotine Polacrilex 2 MG GUM BUCCAL ×3 (10:25→17:14)
--- NOTE | 2021-07-22 11:14 | HO.PSYCHPN ---
Subjective Subjective Date of Service: 07/22/21 Reason For Visit: psychosis Subjective Notes: Conditional Voluntary (rescinded 3 day notice ) Interim History: Patient reports that he is feeling a little better still. He says that he can move his hands better and feels that he is able to talk more clearly to which chief writer agrees. He is walking more easily; gait steady; no balance problems; Patient still has a tremor but needs no assistance toileting. He is eating better; he is appropriate verablly with staff and other patients. WBC elevation, increased lactic acid and fever with Temp 102 yesterday. Clozaril held and labs rechecked. CBC, lactic acid in normal range today and no fever. Mental status improving. He was cooperative and more easily engaged today. agreed to lab work ans verbalized understanding of need for such. Medication Compliance: Yes Side effects from medications: Yes (possible side effects from clozaril) Review of Systems Acute medical concerns: Yes continued sequelae of severe dystonic reaction Medical Review of Systems: changed Review of Systems Review of Systems No fever, chills or weakness No chest pain, palpitation No shortness of breath or coughing No abdominal pain, nausea or vomiting No urinary symptoms No any rash or wounds Mental Status Exam Mental Status Exam Narrative: Pt is alert and oriented x4; behavior is calm and cooperative; right hand tremor noted; dressed in hospital gown; mood is good Affect brighter, more animated, though still significantly blunted; appropriate eye contact; Speech is monotone, low but volume improving; no dysarthria; thought process is organized, logical and goal directed; Thought content is on tx; he denies SI/HI or AVH; no delusional/paranoid thoughts expressed. Patients insight and judgment appear intact. Diagnostics Vital Signs (24Hr): Vital Signs - 24 hr 07/21/21 15:19 07/21/21 15:25 07/21/21 18:00 Temperature 99.5 F 98.4 F Pulse Rate 108 H 108 H 106 H Respiratory Rate 16 Blood Pressure 114/56 L 114/56 L 111/65 Pulse Oximetry 95 07/21/21 21:22 07/22/21 09:00 07/22/21 09:44 Temperature 98.3 F Pulse Rate 108 H 97 97 Respiratory Rate 16 Blood Pressure 137/91 H 109/51 L 109/51 L Pulse Oximetry 99 BMI result Body Mass Index 20.6 Labs Results: 07/22/21 12:34 07/22/21 12:34 Labs: Laboratory Results - last 48 hr 07/20/21 07/21/21 07/21/21 13:13 08:35 08:54 WBC 9.1 17.2 H RBC 4.67 4.57 L Hgb 14.7 14.6 Hct 42.0 41.3 L MCV 89.9 90.4 MCH 31.5 31.9 MCHC 35.0 35.4 RDW 11.8 11.8 Plt Count 258 234 MPV 9.2 L 9.6 Immature Gran % (Auto) 0.8 H 0.5 H Neut % (Auto) 69.0 80.6 H Lymph % (Auto) 20.2 9.2 L [place] % (Auto) 7.2 8.6 Eos % (Auto) 2.2 0.8 Baso % (Auto) 0.6 0.3 Lymph # (Auto) 1.8 1.6 [place] # (Auto) 0.7 1.5 H Eos # (Auto) 0.2 0.1 Baso # (Auto) 0.1 0.1 Abs Immat Gran (auto) 0.07 H 0.08 H Absolute Neuts (auto) 6.3 13.9 H Absolute Nucleated RBC 0.000 0.000 Nucleated RBC % (auto) 0.0 0.0 Sodium Potassium Chloride Carbon Dioxide Anion Gap BUN Creatinine Estim Creat Clear Calc Estimated GFR Lactic Acid Lactic Acid F/U @ 2Hr Lactic Acid F/U @ 4Hr Total Bilirubin Direct Bilirubin AST ALT Alkaline Phosphatase Lactate Dehydrogenase Total Protein Albumin Lipase Urine Color Urine Appearance Urine pH Ur Specific [place] Urine Protein Urine Glucose (UA) Urine Ketones Urine Blood Urine Nitrite Ur Leukocyte Esterase Urine RBC Urine WBC Ur Squamous Epith Cells Ur Renal Epithelial Cell Urine Bacteria COVID-19 ([facility]) Negative COVID-19 Clin Com See Note Influenza Type A (PCR) Influenza Type B (PCR) RSV RNA Qual (PCR) SARS-CoV-2 RNA (RT-PCR) 07/21/21 07/21/21 07/21/21 10:15 12:08 12:08 WBC RBC Hgb Hct MCV MCH MCHC RDW Plt Count MPV Immature Gran % (Auto) Neut % (Auto) Lymph % (Auto) [place] % (Auto) Eos % (Auto) Baso % (Auto) Lymph # (Auto) [place] # (Auto) Eos # (Auto) Baso # (Auto) Abs Immat Gran (auto) Absolute Neuts (auto) Absolute Nucleated RBC Nucleated RBC % (auto) Sodium 139 Potassium 4.1 Chloride 103 Carbon Dioxide 27 Anion Gap 13 BUN 17 H Creatinine 1.01 Estim Creat Clear Calc 117.5 Estimated GFR > 60 Lactic Acid 2.8 H* Lactic Acid F/U @ 2Hr Lactic Acid F/U @ 4Hr Total Bilirubin 0.5 Direct Bilirubin < 0.2 AST 20 ALT 58 H Alkaline Phosphatase 67 Lactate Dehydrogenase 165 Total Protein 6.8 Albumin 4.2 Lipase 53 Urine Color Urine Appearance Urine pH Ur Specific [place] Urine Protein Urine Glucose (UA) Urine Ketones Urine Blood Urine Nitrite Ur Leukocyte Esterase Urine RBC Urine WBC Ur Squamous Epith Cells Ur Renal Epithelial Cell Urine Bacteria COVID-19 ([facility]) COVID-19 Clin Com Influenza Type A (PCR) NEGATIVE Influenza Type B (PCR) NEGATIVE RSV RNA Qual (PCR) NEGATIVE SARS-CoV-2 RNA (RT-PCR) NEGATIVE 07/21/21 07/21/21 07/21/21 14:50 16:10 17:21 WBC RBC Hgb Hct MCV MCH MCHC RDW Plt Count MPV Immature Gran % (Auto) Neut % (Auto) Lymph % (Auto) [place] % (Auto) Eos % (Auto) Baso % (Auto) Lymph # (Auto) [place] # (Auto) Eos # (Auto) Baso # (Auto) Abs Immat Gran (auto) Absolute Neuts (auto) Absolute Nucleated RBC Nucleated RBC % (auto) Sodium Potassium Chloride Carbon Dioxide Anion Gap BUN Creatinine Estim Creat Clear Calc Estimated GFR Lactic Acid Lactic Acid F/U @ 2Hr 2.7 H* Lactic Acid F/U @ 4Hr 3.2 H* Total Bilirubin Direct Bilirubin AST ALT Alkaline Phosphatase Lactate Dehydrogenase Total Protein Albumin Lipase Urine Color YELLOW Urine Appearance CLEAR Urine pH 6.0 Ur Specific [place] 1.025 Urine Protein NEG Urine Glucose (UA) NEG Urine Ketones 5 Urine Blood NEG Urine Nitrite NEG Ur Leukocyte Esterase NEG Urine RBC 0 Urine WBC 1-4 Ur Squamous Epith Cells NONE Ur Renal Epithelial Cell 1+ Urine Bacteria NONE COVID-19 ([facility]) COVID-19 Clin Com Influenza Type A (PCR) Influenza Type B (PCR) RSV RNA Qual (PCR) SARS-CoV-2 RNA (RT-PCR) Imaging Radiology Impressions: ITS Impressions Chest X-Ray 07/21/21 12:22 IMPRESSION: Unremarkable examination. Medications Medications Current Medications Acetaminophen (Acetaminophen 325 Mg Tablet) 650 mg PO Q6H PRN PRN Reason: Pain, Mild (Pain Scale 1-3) Last Admin: 07/19/21 02:04 Dose: 650 mg Documented by: Al Hydroxide/Mg Hydroxide (Magnesium Hydrox/Alum Hydrox 30 Ml Oral.Susp) 30 ml PO Q6H PRN PRN Reason: Heartburn/Nausea Amantadine HCl (Amantadine Hcl 100 Mg Capsule) 100 mg PO BID [facility] Last Admin: 07/22/21 09:33 Dose: 100 mg Documented by: Artificial Tears (Artificial Tears 15 Ml Drops) 2 drop EYE-BOTH Q4H PRN PRN Reason: dry eyes Benztropine Mesylate (Benztropine Mesylate 1 Mg Tablet) 1 mg PO BID [facility] Last Admin: 07/22/21 09:33 Dose: 1 mg Documented by: Carbamide Peroxide (Carbamide Peroxide 6.5% Otic 15 Ml Drpbtl) 5 drop EAR-BOTH BID [facility] Stop: 07/25/21 13:21 Last Admin: 07/22/21 10:07 Dose: Not Given Documented by: Docusate Sodium (Docusate Sodium 100 Mg Capsule) 100 mg PO DAILY PRN PRN Reason: Constipation Docusate Sodium (Docusate Sodium 100 Mg Capsule) 100 mg PO BEDTIME [facility] Last Admin: 07/21/21 21:22 Dose: 100 mg Documented by: Lorazepam (Lorazepam 1 Mg Tablet) 1 mg PO TID [facility] Last Admin: 07/22/21 09:33 Dose: 1 mg Documented by: Magnesium Hydroxide (Milk Of Magnesia 30 Ml Oral.Susp) 30 ml PO DAILY PRN PRN Reason: Constipation Nicotine (Nicotine 14 Mg Patch.Td24) 14 mg TRANSDERMA DAILY [facility] Last Admin: 07/22/21 10:07 Dose: Not Given Documented by: Nicotine Polacrilex (Nicotine Polacrilex 2 Mg Gum) 2 mg BUCCAL Q2H PRN PRN Reason: Nicotine Cravings Last Admin: 07/22/21 10:25 Dose: 2 mg Documented by: Pharmacy Consult (Consult Rx Perform Med Rec) 1 each MISCELLANE ONCE PRN PRN Reason: Consult order Polyethylene Glycol (Polyethylene Glycol 3350 17 Gm Powd.Pack) 17 gm PO DAILY PRN PRN Reason: Constipation Propranolol HCl (Propranolol Hcl 10 Mg Tablet) 10 mg PO TID [facility]; Protocol Last Admin: 07/22/21 09:44 Dose: Not Given Documented by: Trazodone HCl (Trazodone Hcl 50 Mg Tablet) 50 mg PO BEDTIME PRN PRN Reason: Insomnia Last Admin: 07/19/21 02:14 Dose: 50 mg Documented by: Allergies Allergies Allergy/AdvReac Type Severity Reaction Status Date / Time diphenhydramine Allergy Unknown unknown Verified 10/12/20 04:33 [From BENADRYL] haloperidol [From HALDOL] Allergy Unknown unknown Verified 10/12/20 04:33 paliperidone AdvReac Severe dystonia Verified 03/30/21 23:47 Assessment & Plan Assessment & Plan (1) Fever: Status: Acute Code(s): R50.9 - Fever, unspecified Assessment and Plan: resolved as 07/22/21 (2) Lactic acidosis: Status: Acute Code(s): E87.2 - Acidosis Assessment and Plan: lactic acid drawn today 07/22/21 normal (3) Leukocytosis: Status: Acute Code(s): D72.829 - Elevated white blood cell count, unspecified Assessment and Plan: WBC drawn today normal range Assessment and Plan: a 26 years old male with a history of anxiety as well as schizoaffective disorder who was recently discharged from the hospital to the psych floor developed low-grade fever and bili WBCs. 07/22/21 labs drawn today and results reviewed- did not populate to this note Low-grade fever -RESOLVED x 12 + hours Elevated WBCs - wbc normal range with 07/22 21 draw Lactic acidosis - lactic acid innomral range with todays blood draw No clear source of infection identified, patient is not septic CXR negative His able to pass urine, to get a sample blood culture sent, to monitor- PENDING Seems to be a result of starting clozapine which is known to goes fever, leukocytosis and metabolic disturbances Hold on antibiotics Will continue to monitor the patient with psychiatry team HOLD CLOZARIL for now and montior I spent minutes with the patient and/or on the patient floor today, greater than?50% of which was spent counseling/coordinating care. Patient educated on: therapeutic strategies Informed Consent: further education needed Reason for contiued inpatient stay Substantial Risk for: inability to function, rapid decompensation and med/psych decompensation
[2021-07-22 12:40] LABS: MANUAL DIFF FLAG NO
[2021-07-22 12:43] LABS: Basophils Percent Auto 0.4 % (0-2); Eosinophils Absolute Auto 0.2 X10*3/uL (0.0-0.4); Eosinophils Percent Auto 2.3 % (0-4); Hematocrit 40.5 % (42.0-52.0); Hemoglobin 14.2 g/dl (14.0-18.0); Imm Gran Abs Auto 0.07 X10*3/uL (0.00-0.03); Imm Gran Pct Auto 0.7 % (0.0-0.4); Mean Corpuscular HGB Conc 35.1 g/dl (31.0-36.0); Mean Corpuscular Hemoglobin 32.1 pg (27.0-33.0); Mean Corpuscular Volume 91.4 fL (80.0-98.0); Mean Platelet Volume 9.3 fL (9.4-12.4); Monocytes Percent Auto 9.3 % (2-11); Neutrophils Percent Auto 68.3 % (45-73); Platelet Count 212 X10*3/uL (160-400); Red Blood Count 4.43 X10*6/uL (4.60-5.80); Red Cell Distribution Width 11.9 % (11.0-16.0); White Blood Count 10.3 X10*3/uL (4.8-10.8)
[2021-07-22 12:55] LABS: Lactic Acid 1.5 mmol/L (0.5-2.0)
[2021-07-22 13:00] VITALS: BP 111/63; PULSE 103; RESP 16; TEMP 37.1; O2SAT 95
[2021-07-22 13:00] LABS: Blood Urea Nitrogen 18 mg/dL (9-16); Creatinine Clr Calc Pharmacy 121.1; Estimated Glomerular Filt Rate > 60
--- NOTE | 2021-07-22 13:17 | MHC.SLORD ---
Speech Language Pathology Order Status: Attempted to see PT at lunch time, trajaspreet had not arrived, Pt sleeping. When asked if he would wake up for Lunch, he replied, yes when the tray gets here. Bhanu reported that he at well at [employer], needed sausage cut up smaller, but when done had no difficulty. Will re-attempt Sunday, 07/25.
[2021-07-22 14:13] VITALS: BP 111/63; PULSE 103
[2021-07-22] MEDS: Propranolol HCL 10 MG TABLET PO ×2 (14:13→21:04)
[2021-07-22 20:55] VITALS: BP 113/52; PULSE 79; TEMP 36.7
[2021-07-22 21:04] VITALS: BP 113/52; PULSE 79
[2021-07-23 09:00] VITALS: BP 120/87; PULSE 80; TEMP 37.1
[2021-07-23] MEDS: Benztropine Mesylate 1 MG TABLET PO ×2 (09:01→21:21)
[2021-07-23] MEDS: Carbamide Peroxide 6.5% Otic 15 ML DRPBTL 5 DROP EAR-BOTH (09:01)
[2021-07-23] MEDS: amantadine HCL 100 MG CAPSULE PO ×2 (09:01→21:21)
[2021-07-23] MEDS: Nicotine 14 MG PATCH.TD24 TRANSDERMA (09:01)
[2021-07-23] MEDS: LORazepam 1 MG TABLET PO (09:01)
[2021-07-23] MEDS: Nicotine Polacrilex 2 MG GUM BUCCAL ×2 (16:08→20:06)
[2021-07-23 17:39] VITALS: BP 114/54; PULSE 74; RESP 16; TEMP 36.5; O2SAT 97
[2021-07-23] MEDS: Acetaminophen 325 MG TABLET 650 MG PO (18:06)
--- NOTE | 2021-07-23 19:30 | HO.PSYCHPN ---
Subjective Subjective Date of Service: 07/23/21 Reason For Visit: psychosis Interim History: Patient reports that he is feeling a little better. He says that he can move his hands better and feels that he is able to talk more clearly. Pt has slight involuntary movement in right hand He is walking more easily; gait steady; no balance problems; He is eating better; he is verbally appropriate with staff and other patients. CBC, lactic acid in normal range today and no fever. Mental status improving. He was cooperative and more easily engaged today. agreed to lab work ans verbalized understanding of need for such. clozaril still held. Medication Compliance: Yes Side effects from medications: No Review of Systems Acute medical concerns: No Medical Review of Systems: unchanged Review of Systems Review of Systems No fever, chills or weakness No chest pain, palpitation No shortness of breath or coughing No abdominal pain, nausea or vomiting No urinary symptoms No any rash or wounds Mental Status Exam Mental Status Exam Narrative: Pt is alert and oriented x4; behavior is calm and cooperative; right hand tremor noted; mood is tired Affect blunted; thought process is organized, logical and goal directed; Thought content is on tx; he denies SI/HI or AVH; no delusional/paranoid thoughts expressed. Patients insight and judgment appear intact. Diagnostics Vital Signs (24Hr): Vital Signs - 24 hr 07/22/21 20:55 07/22/21 21:04 07/23/21 09:00 Temperature 98.1 F 98.8 F Pulse Rate 79 79 80 Respiratory Rate Blood Pressure 113/52 L 113/52 L 120/87 Pulse Oximetry 07/23/21 17:39 Temperature 97.7 F Pulse Rate 74 Respiratory Rate 16 Blood Pressure 114/54 L Pulse Oximetry 97 BMI result Body Mass Index 20.6 Labs Results: 07/22/21 12:34 07/22/21 12:34 Labs: Laboratory Results - last 48 hr 07/22/21 07/22/21 07/22/21 12:34 12:34 12:34 WBC 10.3 RBC 4.43 L Hgb 14.2 Hct 40.5 L MCV 91.4 MCH 32.1 MCHC 35.1 RDW 11.9 Plt Count 212 MPV 9.3 L Immature Gran % (Auto) 0.7 H Neut % (Auto) 68.3 Lymph % (Auto) 19.0 L [place] % (Auto) 9.3 Eos % (Auto) 2.3 Baso % (Auto) 0.4 Lymph # (Auto) 2.0 [place] # (Auto) 1.0 Eos # (Auto) 0.2 Baso # (Auto) 0.0 Abs Immat Gran (auto) 0.07 H Absolute Neuts (auto) 7.0 Absolute Nucleated RBC 0.000 Nucleated RBC % (auto) 0.0 BUN 18 H Creatinine 0.98 Estim Creat Clear Calc 121.1 Estimated GFR > 60 Lactic Acid 1.5 Total Creatine Kinase 63 D Imaging Radiology Impressions: ITS Impressions Chest X-Ray 07/21/21 12:22 IMPRESSION: Unremarkable examination. Medications Medications Current Medications Acetaminophen (Acetaminophen 325 Mg Tablet) 650 mg PO Q6H PRN PRN Reason: Pain, Mild (Pain Scale 1-3) Last Admin: 07/23/21 18:06 Dose: 650 mg Documented by: Al Hydroxide/Mg Hydroxide (Magnesium Hydrox/Alum Hydrox 30 Ml Oral.Susp) 30 ml PO Q6H PRN PRN Reason: Heartburn/Nausea Amantadine HCl (Amantadine Hcl 100 Mg Capsule) 100 mg PO BID [facility] Last Admin: 07/23/21 09:01 Dose: 100 mg Documented by: Artificial Tears (Artificial Tears 15 Ml Drops) 2 drop EYE-BOTH Q4H PRN PRN Reason: dry eyes Benztropine Mesylate (Benztropine Mesylate 1 Mg Tablet) 1 mg PO BID [facility] Last Admin: 07/23/21 09:01 Dose: 1 mg Documented by: Carbamide Peroxide (Carbamide Peroxide 6.5% Otic 15 Ml Drpbtl) 5 drop EAR-BOTH BID [facility] Stop: 07/25/21 13:21 Last Admin: 07/23/21 09:01 Dose: 5 drop Documented by: Docusate Sodium (Docusate Sodium 100 Mg Capsule) 100 mg PO DAILY PRN PRN Reason: Constipation Docusate Sodium (Docusate Sodium 100 Mg Capsule) 100 mg PO BEDTIME [facility] Last Admin: 07/22/21 21:07 Dose: Not Given Documented by: Lorazepam (Lorazepam 1 Mg Tablet) 1 mg PO TID [facility] Last Admin: 07/23/21 18:01 Dose: Not Given Documented by: Magnesium Hydroxide (Milk Of Magnesia 30 Ml Oral.Susp) 30 ml PO DAILY PRN PRN Reason: Constipation Nicotine (Nicotine 14 Mg Patch.Td24) 14 mg TRANSDERMA DAILY [facility] Last Admin: 07/23/21 09:01 Dose: 14 mg Documented by: Nicotine Polacrilex (Nicotine Polacrilex 2 Mg Gum) 2 mg BUCCAL Q2H PRN PRN Reason: Nicotine Cravings Last Admin: 07/23/21 16:08 Dose: 2 mg Documented by: Pharmacy Consult (Consult Rx Perform Med Rec) 1 each MISCELLANE ONCE PRN PRN Reason: Consult order Polyethylene Glycol (Polyethylene Glycol 3350 17 Gm Powd.Pack) 17 gm PO DAILY PRN PRN Reason: Constipation Propranolol HCl (Propranolol Hcl 10 Mg Tablet) 10 mg PO TID [facility]; Protocol Last Admin: 07/23/21 18:01 Dose: Not Given Documented by: Trazodone HCl (Trazodone Hcl 50 Mg Tablet) 50 mg PO BEDTIME PRN PRN Reason: Insomnia Last Admin: 07/19/21 02:14 Dose: 50 mg Documented by: Allergies Allergies Allergy/AdvReac Type Severity Reaction Status Date / Time diphenhydramine Allergy Unknown unknown Verified 10/12/20 04:33 [From BENADRYL] haloperidol [From HALDOL] Allergy Unknown unknown Verified 10/12/20 04:33 paliperidone AdvReac Severe dystonia Verified 03/30/21 23:47 Assessment & Plan Assessment & Plan (1) Fever: Status: Acute Code(s): R50.9 - Fever, unspecified Assessment and Plan: resolved as 07/22/21 (2) Lactic acidosis: Status: Acute Code(s): E87.2 - Acidosis Assessment and Plan: lactic acid drawn today 07/22/21 normal (3) Leukocytosis: Status: Acute Code(s): D72.829 - Elevated white blood cell count, unspecified Assessment and Plan: WBC drawn today normal range Assessment and Plan: a 26 years old male with a history of anxiety as well as schizoaffective disorder who was recently discharged from the hospital to the psych floor developed low-grade fever and bili WBCs. 07/22/21 labs drawn today and results reviewed- did not populate to this note Low-grade fever -RESOLVED x 12 + hours Elevated WBCs - wbc normal range with 07/22 21 draw Lactic acidosis - lactic acid innomral range with todays blood draw No clear source of infection identified, patient is not septic CXR negative His able to pass urine, to get a sample blood culture sent, to monitor- PENDING Seems to be a result of starting clozapine which is known to goes fever, leukocytosis and metabolic disturbances Hold on antibiotics Will continue to monitor the patient with psychiatry team HOLD CLOZARIL for now and mallyior 07/23/21- continue with current treatment plan continue t hold clozaril for now I spent minutes with the patient and/or on the patient floor today, greater than?50% of which was spent counseling/coordinating care. Reason for contiued inpatient stay Substantial Risk for: harm to self, inability to function, rapid decompensation and med/psych decompensation
[2021-07-23] MEDS: Docusate Sodium 100 MG CAPSULE PO (21:22)
[2021-07-23 21:23] VITALS: BP 132/67; PULSE 96
[2021-07-23] MEDS: Propranolol HCL 10 MG TABLET PO (21:23)
[2021-07-23] MEDS: traZODone HCL 50 MG TABLET PO (21:37)
--- NOTE | 2021-07-24 06:38 | PC.NURSE ---
PT refused VS at 06:00.
[2021-07-24 09:00] VITALS: BP 125/60; PULSE 104; RESP 16; TEMP 36.6; O2SAT 97
[2021-07-24 09:38] VITALS: BP 125/60; PULSE 104
[2021-07-24] MEDS: Propranolol HCL 10 MG TABLET PO ×3 (09:38→21:04)
[2021-07-24] MEDS: Benztropine Mesylate 1 MG TABLET PO ×2 (09:38→21:04)
[2021-07-24] MEDS: Nicotine 14 MG PATCH.TD24 TRANSDERMA (09:38)
[2021-07-24] MEDS: LORazepam 1 MG TABLET PO ×3 (09:38→21:09)
[2021-07-24] MEDS: amantadine HCL 100 MG CAPSULE PO ×2 (09:38→21:04)
--- NOTE | 2021-07-24 10:45 | P.PNPSI_ITS ---
Subjective Subjective Date of Service: 07/24/21 Reason For Visit: psychosis Interim History: Patient reports he is feeling a little better. He is moving more easily however still has hand tremor. he is able to talk more clearly. Pt has slight involuntary movement in right hand, gait steady; no balance problems; He is eating better; he is verbally appropriate with staff and other patients. CBC, lactic acid in normal range and afebrile. Mental status improving. He was cooperative and more easily engaged today. clozaril still held. Medication Compliance: Yes Side effects from medications: No Attending Groups: No Review of Systems acute sever dystonia resolving Review of Systems Review of Systems No fever, chills or weakness No chest pain, palpitation No shortness of breath or coughing No abdominal pain, nausea or vomiting No urinary symptoms No any rash or wounds Mental Status Exam Mental Status Exam Narrative: Pt is alert and oriented x4; behavior is calm and cooperative; right hand tremor noted; mood is tired Affect blunted; thought process is organized, logical and goal directed; Thought content is on tx; he denies SI/HI or AVH; no delusional/paranoid thoughts expressed. Patients insight and judgment appear intact. Diagnostics Vital Signs (24Hr): Vital Signs - 24 hr 07/23/21 17:39 07/23/21 21:23 07/24/21 09:00 Temperature 97.7 F 97.8 F Pulse Rate 74 96 104 H Respiratory Rate 16 16 Blood Pressure 114/54 L 132/67 125/60 Pulse Oximetry 97 97 07/24/21 09:38 Temperature Pulse Rate 104 H Respiratory Rate Blood Pressure 125/60 Pulse Oximetry BMI result Body Mass Index 20.6 Labs Results: 07/22/21 12:34 07/22/21 12:34 Labs: Laboratory Results - last 48 hr 07/22/21 07/22/21 07/22/21 12:34 12:34 12:34 WBC 10.3 RBC 4.43 L Hgb 14.2 Hct 40.5 L MCV 91.4 MCH 32.1 MCHC 35.1 RDW 11.9 Plt Count 212 MPV 9.3 L Immature Gran % (Auto) 0.7 H Neut % (Auto) 68.3 Lymph % (Auto) 19.0 L [place] % (Auto) 9.3 Eos % (Auto) 2.3 Baso % (Auto) 0.4 Lymph # (Auto) 2.0 [place] # (Auto) 1.0 Eos # (Auto) 0.2 Baso # (Auto) 0.0 Abs Immat Gran (auto) 0.07 H Absolute Neuts (auto) 7.0 Absolute Nucleated RBC 0.000 Nucleated RBC % (auto) 0.0 BUN 18 H Creatinine 0.98 Estim Creat Clear Calc 121.1 Estimated GFR > 60 Lactic Acid 1.5 Total Creatine Kinase 63 D Imaging Radiology Impressions: ITS Impressions Chest X-Ray 07/21/21 12:22 IMPRESSION: Unremarkable examination. Medications Medications Current Medications Acetaminophen (Acetaminophen 325 Mg Tablet) 650 mg PO Q6H PRN PRN Reason: Pain, Mild (Pain Scale 1-3) Last Admin: 07/23/21 18:06 Dose: 650 mg Documented by: Al Hydroxide/Mg Hydroxide (Magnesium Hydrox/Alum Hydrox 30 Ml Oral.Susp) 30 ml PO Q6H PRN PRN Reason: Heartburn/Nausea Amantadine HCl (Amantadine Hcl 100 Mg Capsule) 100 mg PO BID [facility] Last Admin: 07/24/21 09:38 Dose: 100 mg Documented by: Artificial Tears (Artificial Tears 15 Ml Drops) 2 drop EYE-BOTH Q4H PRN PRN Reason: dry eyes Benztropine Mesylate (Benztropine Mesylate 1 Mg Tablet) 1 mg PO BID [facility] Last Admin: 07/24/21 09:38 Dose: 1 mg Documented by: Carbamide Peroxide (Carbamide Peroxide 6.5% Otic 15 Ml Drpbtl) 5 drop EAR-BOTH BID [facility] Stop: 07/25/21 13:21 Last Admin: 07/24/21 09:45 Dose: Not Given Documented by: Docusate Sodium (Docusate Sodium 100 Mg Capsule) 100 mg PO DAILY PRN PRN Reason: Constipation Docusate Sodium (Docusate Sodium 100 Mg Capsule) 100 mg PO BEDTIME [facility] Last Admin: 07/23/21 21:22 Dose: 100 mg Documented by: Lorazepam (Lorazepam 1 Mg Tablet) 1 mg PO TID [facility] Last Admin: 07/24/21 09:38 Dose: 1 mg Documented by: Magnesium Hydroxide (Milk Of Magnesia 30 Ml Oral.Susp) 30 ml PO DAILY PRN PRN Reason: Constipation Nicotine (Nicotine 14 Mg Patch.Td24) 14 mg TRANSDERMA DAILY [facility] Last Admin: 07/24/21 09:38 Dose: 14 mg Documented by: Nicotine Polacrilex (Nicotine Polacrilex 2 Mg Gum) 2 mg BUCCAL Q2H PRN PRN Reason: Nicotine Cravings Last Admin: 07/23/21 20:06 Dose: 2 mg Documented by: Pharmacy Consult (Consult Rx Perform Med Rec) 1 each MISCELLANE ONCE PRN PRN Reason: Consult order Polyethylene Glycol (Polyethylene Glycol 3350 17 Gm Powd.Pack) 17 gm PO DAILY PRN PRN Reason: Constipation Propranolol HCl (Propranolol Hcl 10 Mg Tablet) 10 mg PO TID [facility]; Protocol Last Admin: 07/24/21 09:38 Dose: 10 mg Documented by: Trazodone HCl (Trazodone Hcl 50 Mg Tablet) 50 mg PO BEDTIME PRN PRN Reason: Insomnia Last Admin: 07/23/21 21:37 Dose: 50 mg Documented by: Allergies Allergies Allergy/AdvReac Type Severity Reaction Status Date / Time diphenhydramine Allergy Unknown unknown Verified 10/12/20 04:33 [From BENADRYL] haloperidol [From HALDOL] Allergy Unknown unknown Verified 10/12/20 04:33 paliperidone AdvReac Severe dystonia Verified 03/30/21 23:47 Assessment & Plan Assessment & Plan (1) Fever: Status: Acute Code(s): R50.9 - Fever, unspecified Assessment and Plan: resolved as 07/22/21 (2) Lactic acidosis: Status: Acute Code(s): E87.2 - Acidosis Assessment and Plan: lactic acid drawn today 07/22/21 normal (3) Leukocytosis: Status: Acute Code(s): D72.829 - Elevated white blood cell count, unspecified Assessment and Plan: WBC drawn today normal range Assessment and Plan: a 26 years old male with a history of anxiety as well as schizoaffective disor chacha who was recently discharged from the hospital to the psych floor developed low-grade fever and bili WBCs. 07/22/21 labs drawn today and results reviewed- did not populate to this note Low-grade fever -RESOLVED x 24 + hours Elevated WBCs - wbc normal range with draw Lactic acidosis - lactic acid in normal range blood draw No clear source of infection identified, patient is not septic CXR negative His able to pass urine, to get a sample blood culture sent, to monitor- PENDING Seems to be a result of starting clozapine which is known to goes fever, leukocytosis and metabolic disturbances Hold on antibiotics Will continue to monitor the patient with psychiatry team HOLD CLOZARIL for now and manas 07/24/21- continue with current treatment plan continue to hold clozaril for now I spent minutes with the patient and/or on the patient floor today, greater than?50% of which was spent counseling/coordinating care. Reason for contiued inpatient stay Substantial Risk for: harm to self, inability to function, rapid decompensation and med/psych decompensation
[2021-07-24 13:00] VITALS: BP 120/64; PULSE 88; RESP 16
[2021-07-24] MEDS: Nicotine Polacrilex 2 MG GUM BUCCAL ×2 (13:28→18:05)
[2021-07-24 14:48] VITALS: BP 120/64; PULSE 88
[2021-07-24] MEDS: Acetaminophen 325 MG TABLET 650 MG PO (18:07)
[2021-07-24 19:00] VITALS: BP 112/58; PULSE 107; TEMP 36.9; O2SAT 98
[2021-07-24 21:04] VITALS: BP 118/55; PULSE 85
[2021-07-24] MEDS: Docusate Sodium 100 MG CAPSULE PO (21:08)
[2021-07-25] MEDS: Nicotine 14 MG PATCH.TD24 TRANSDERMA (08:49)
[2021-07-25 08:51] VITALS: BP 116/80; PULSE 77
[2021-07-25] MEDS: amantadine HCL 100 MG CAPSULE PO ×2 (08:51→20:39)
[2021-07-25] MEDS: LORazepam 1 MG TABLET PO ×3 (08:51→20:39)
[2021-07-25] MEDS: Propranolol HCL 10 MG TABLET PO ×3 (08:51→20:38)
[2021-07-25] MEDS: Benztropine Mesylate 1 MG TABLET PO ×2 (08:51→20:38)
[2021-07-25 09:00] VITALS: BP 116/80; PULSE 77
[2021-07-25 11:54] LABS: Neut%MD 64.9 %; Neutrophils Absolute Auto 4.7 x10*3/uL (2.0-8.3); WBCANC 7.3 X10*3/uL
[2021-07-25 13:00] VITALS: BP 117/60; PULSE 92
[2021-07-25] MEDS: cloZAPine 25 MG TABLET 12.5 MG PO ×2 (13:22→20:37)
--- NOTE | 2021-07-25 14:49 | P.PNPSI_ITS ---
Subjective Subjective Date of Service: 07/25/21 Reason For Visit: psychosis Interim History: Patient reports that he is doing better. Says he still has a tremor which is evident, most significantly in right arm. Patient is still moving slowly and not yet back to baseline for physical functioning but he continues to improve. Denies any SI, HI or AVH; he denies any delusional thinking. Insurance Underwriting Assistant asked about his most recent suicide attempt and patient says he does not remember much about it. Patient is difficult to engage. His main focus is how much longer he needs to stay in the unit. He agrees to restart clozapine and and to remain on the unit while this is titrated however he e xpresses desire to discharge as soon as possible. Mental Status Exam Mental Status Exam Narrative: Pt is alert and oriented x4; behavior is calm and cooperative; right hand tremor noted; dressed in hospital gown; mood is good Affect still significantly blunted; eye contact appropriate; Speech is monotone, low, but volume improving; no dysarthria; thought process is organized and goal directed; Thought content is on tx; he denies SI/HI or AVH; no delusional/paranoid thoughts expressed. Patients insight and judgment are impaired, but adequate. Diagnostics Vital Signs (24Hr): Vital Signs - 24 hr 07/24/21 19:00 07/24/21 21:04 07/25/21 08:51 Temperature 98.5 F Pulse Rate 107 H 85 77 Blood Pressure 112/58 L 118/55 L 116/80 Pulse Oximetry 98 07/25/21 09:00 07/25/21 13:00 Temperature Pulse Rate 77 92 Blood Pressure 116/80 117/60 Pulse Oximetry BMI result Body Mass Index 20.6 Labs Results: 07/22/21 12:34 07/22/21 12:34 Labs: Laboratory Results - last 48 hr 07/25/21 11:43 Absolute Neuts (auto) 4.7 Imaging Radiology Impressions: ITS Impressions Chest X-Ray 07/21/21 12:22 IMPRESSION: Unremarkable examination. Medications Medications Current Medications Acetaminophen (Acetaminophen 325 Mg Tablet) 650 mg PO Q6H PRN PRN Reason: Pain, Mild (Pain Scale 1-3) Last Admin: 07/24/21 18:07 Dose: 650 mg Documented by: Al Hydroxide/Mg Hydroxide (Magnesium Hydrox/Alum Hydrox 30 Ml Oral.Susp) 30 ml PO Q6H PRN PRN Reason: Heartburn/Nausea Amantadine HCl (Amantadine Hcl 100 Mg Capsule) 100 mg PO BID [facility] Last Admin: 07/25/21 08:51 Dose: 100 mg Documented by: Artificial Tears (Artificial Tears 15 Ml Drops) 2 drop EYE-BOTH Q4H PRN PRN Reason: dry eyes Benztropine Mesylate (Benztropine Mesylate 1 Mg Tablet) 1 mg PO BID [facility] Last Admin: 07/25/21 08:51 Dose: 1 mg Documented by: Clozapine (Clozapine 25 Mg Tablet) 12.5 mg PO BID [facility] Last Admin: 07/25/21 13:22 Dose: 12.5 mg Documented by: Docusate Sodium (Docusate Sodium 100 Mg Capsule) 100 mg PO DAILY PRN PRN Reason: Constipation Docusate Sodium (Docusate Sodium 100 Mg Capsule) 100 mg PO BEDTIME [facility] Last Admin: 07/24/21 21:08 Dose: 100 mg Documented by: Lorazepam (Lorazepam 1 Mg Tablet) 1 mg PO TID [facility] Last Admin: 07/25/21 14:09 Dose: 1 mg Documented by: Magnesium Hydroxide (Milk Of Magnesia 30 Ml Oral.Susp) 30 ml PO DAILY PRN PRN Reason: Constipation Nicotine (Nicotine 14 Mg Patch.Td24) 14 mg TRANSDERMA DAILY [facility] Last Admin: 07/25/21 08:49 Dose: 14 mg Documented by: Nicotine Polacrilex (Nicotine Polacrilex 2 Mg Gum) 2 mg BUCCAL Q2H PRN PRN Reason: Nicotine Cravings Last Admin: 07/24/21 18:05 Dose: 2 mg Documented by: Pharmacy Consult (Consult Rx Perform Med Rec) 1 each MISCELLANE ONCE PRN PRN Reason: Consult order Polyethylene Glycol (Polyethylene Glycol 3350 17 Gm Powd.Pack) 17 gm PO DAILY PRN PRN Reason: Constipation Propranolol HCl (Propranolol Hcl 10 Mg Tablet) 10 mg PO TID [facility]; Protocol Last Admin: 07/25/21 14:09 Dose: 10 mg Documented by: Trazodone HCl (Trazodone Hcl 50 Mg Tablet) 50 mg PO BEDTIME PRN PRN Reason: Insomnia Last Admin: 07/23/21 21:37 Dose: 50 mg Documented by: Allergies Allergies Allergy/AdvReac Type Severity Reaction Status Date / Time diphenhydramine Allergy Unknown unknown Verified 10/12/20 04:33 [From BENADRYL] haloperidol [From HALDOL] Allergy Unknown unknown Verified 10/12/20 04:33 paliperidone AdvReac Severe dystonia Verified 03/30/21 23:47 Assessment & Plan Assessment & Plan (1) Fever: Status: Resolved Code(s): R50.9 - Fever, unspecified Assessment and Plan: resolved as 07/22/21 (2) Lactic acidosis: Status: Resolved Code(s): E87.2 - Acidosis Assessment and Plan: lactic acid drawn today 07/22/21 normal (3) Leukocytosis: Status: Resolved Code(s): D72.829 - Elevated white blood cell count, unspecified Assessment and Plan: WBC drawn today normal range (4) Schizoaffective disorder, bipolar type: Status: Acute Code(s): F25.0 - Schizoaffective disorder, bipolar type (5) Extrapyramidal symptom: Status: Acute Code(s): R29.818 - Other symptoms and signs involving the nervous system (6) Acute dystonic reaction due to drugs: Status: Acute Code(s): G24.02 - Drug induced acute dystonia Assessment and Plan: IMPRESSION: This is a 26-year-old male with past medical history of schizoaffective disorder who presents from medical floor following treatment for extrapyramidal symptoms and acute dystonic reaction from administered DAS of fluphenazine decaonate of 100mg on 06/14. Pt has hx of multiple inpatient admissions for psychotic sx, islam preoccupation, command AH, impulsive and unsafe bx, paranoid ideations, and agitation. He was last admitted to [facility] after treatment for suicide attempt by self inflicted neck laceration; there he was started on Fluphenazine and subsequently given DAS.? On admission, pt was severely dystonic, rigid, with cogwheeling b/l arms/legs and parkinsonian tremor, unable to attend to ADL's without assistance, including eating, drinking, tolieting, standing or walking, difficulty talking and with a fixed stare. Zyprexa discontinued. Pt was treated with congentin and ativan; pt had some urinary retention which eventually cleared; ?dystonic/EPS symptoms started to clear when started on Amantadine which was tritrated to 100mg BID. Pt is not back to baseline, but can attend to most ADL's on his own or with only some assistance.? Patient denied any SI/HI/AVH and did not expressed any paranoid/delusional ideations; thought process is linear and goal directed. On admission to patient continues to deny any SI/HI/AVH and denies any delusional/paranoid ideations. He says he knows he's had these symptoms in the past but they are not present now. Pt is ambivalent about restarting antipsychotics given his recent experience of side-effect but also due his limited insight into the extent of his psychiatric illness. Patient says he did not come to the hospital this time for being unsafe but for a medication side-effect. He acknowledges that he could again become delusional but if so that will be his problem to deal with. He was willing to entertain Clozapine but does not think he'll really be available for weekly blood draws. Patient says that his outpt provider Dr. Light told him not to take any antipsychotics for now and he says he wants to wait for Dr. Light recommendations before restarting any medications. Patient however changed his mind and agreed to start clozapine. On admission pt has been psychiatrically stable, w/out psychosis or anna; currently he is still benefiting from effects of DAS however, this will likely wear off soon. Patient has agreed to start clozapine. However can take weeks to titrate to a therapeutic dose. When patient is off medications patient has history of quickly becoming disorganized, manic, psychotic and suicidal.? While it is possible that clozapine could quickly take effect and for patient to remain stable, he remains with limited insight, which combined with his chronic pattern of non-adherence with meds makes disposition planning difficult. There has been some discussion whether not patient requires VIBRA for long-term stabilization. 07/20 Patient at 1st ambivalent however he decided to have a trial of clozapine and agrees to get blood draws once a week even though it will mildly curb his enthusiastically pursued outdoor adventures.? Insurance Underwriting Assistant discussed case with Dr. Jerez who agrees with trial of clozapine as it has a very low risk for EPS/dystonia, is good for refractory psychotic illness (patient has failed Abilify, Haldol, Invega, Seroquel, fluphenazine, ziprasidone, Zyprexa (which is only partially helpful and patient reports it causes tremor)) and helpful for suicidality.? Insurance Underwriting Assistant spoke with patient's outpatient [facility] nurse Camelia ([phone]) who is hopeful this can work and thinks the team can come up with a plan to accommodate patient getting this medication. ? 07/20 Today, pt was mildly febrile 100.2, mildly tachy HR 92 with elevated WBC 10956; meets SIRS criteria see below for workup; otherwise, remains psychiatrically stable; dystonia/EPS continue to lessen 07/25/21: Patient is stable; fever, leukocytosis, lactic acidosis resolved; patient agrees to restarting clozapine. He is asking about when he can discharge however is currently willing to stay. PLAN: On CV (Rescinded 3 day on 07/20) 1. Schizoaffective DO: pt agrees to trial of Clozapine including 1/week blood draws will get CBC w/ diff today and then weekly; register pt in [facility] Restart clozapine 12.5 mg b.i.d.; patient is stable leukocytosis resolved; will monitor 2.?SIRS: mildly febrile, elevated WBC, mildly tachy: due to Medication reaction (infectious process r./o): 07/20 pt mildly febrile 100.2, mildly tachy HR 92 with elevated WBC 56492; meets SIRS criteria Low-grade fever -RESOLVED x 24+ hours Elevated WBCs - wbc normal range with draw Lactic acidosis - lactic acid in normal range blood draw No clear source of infection identified, patient is not septic CXR negative -NMS R/O UA: wnl other labs wnl covid/influenza/RSV Neg LDH: WNL Plan: -RESTARTE CLOZAPINE 12.5MG BID; patient has severe psychotic disorder and if untreated can become unsafe. Patient is currently stable; will monitor -CBC daily -vitals t.i.d. 3. EPS/Dystonia: improving patient was on 1:1 for milue safety (pt has hx of being inappropriate with female staff); low threshold for restarting one-to-one continue amantadine 100 mg BID continue ativan 1mg TID Cogentin 1 mg b.i.d. Propranolol 10 mg t.i.d. DC Lovenox as patient refuses this medication and is actively ambulating on his own on the unit Pt/OT daily Speech eval advanced to solid foods 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 He was on benztropine 1 mg twice a day.? For now, I suggest continuing same dose of benztropine.? ? Increasing dose of medicine for tremor might result in dry mouth dizziness and confusion.? Instead, the antipsychotic with lower chance of similar complication is advised. I spent minutes with the patient and/or on the patient floor today, greater than?50% of which was spent counseling/coordinating care. Reason for contiued inpatient stay Substantial Risk for: rapid decompensation
--- NOTE | 2021-07-25 16:38 | MHC.SLORD ---
Speech Language Pathology Order Status: Attempted to see PT this a.m. Sleeping. Bhanu reported that he had taken B'fast well. Will reattempt tomorrow.
[2021-07-25 20:30] VITALS: BP 120/62; PULSE 86; RESP 18; TEMP 36.1; O2SAT 97
[2021-07-25] MEDS: Docusate Sodium 100 MG CAPSULE PO (20:38)
[2021-07-26 08:26] LABS: MANUAL DIFF FLAG NO
[2021-07-26 08:27] LABS: Basophils Absolute Auto 0.1 X10*3/uL (0.0-0.2); Basophils Percent Auto 0.6 % (0-2); Eosinophils Absolute Auto 0.3 X10*3/uL (0.0-0.4); Eosinophils Percent Auto 3.5 % (0-4); Hemoglobin 15.4 g/dl (14.0-18.0); Imm Gran Abs Auto 0.12 X10*3/uL (0.00-0.03); Imm Gran Pct Auto 1.6 % (0.0-0.4); Lymphocytes Absolute Auto 2.6 X10*3/uL (1.2-4.9); Lymphocytes Percent Auto 33.6 % (20-40); Mean Corpuscular HGB Conc 34.2 g/dl (31.0-36.0); Mean Corpuscular Hemoglobin 31.3 pg (27.0-33.0); Mean Corpuscular Volume 91.5 fL (80.0-98.0); Monocytes Absolute Auto 0.6 X10*3/uL (0.1-1.2); Monocytes Percent Auto 8.1 % (2-11); Neutrophils Absolute Auto 4.1 x10*3/uL (2.0-8.3); Neutrophils Percent Auto 52.6 % (45-73); Platelet Count 231 X10*3/uL (160-400); Red Blood Count 4.92 X10*6/uL (4.60-5.80); Red Cell Distribution Width 12.1 % (11.0-16.0); White Blood Count 7.7 X10*3/uL (4.8-10.8)
[2021-07-26] MEDS: Nicotine 14 MG PATCH.TD24 TRANSDERMA (08:59)
[2021-07-26 09:00] VITALS: BP 131/65; PULSE 95; TEMP 36.6; O2SAT 98
[2021-07-26] MEDS: LORazepam 1 MG TABLET PO ×3 (09:00→20:06)
[2021-07-26] MEDS: amantadine HCL 100 MG CAPSULE PO ×2 (09:00→20:06)
[2021-07-26] MEDS: Propranolol HCL 10 MG TABLET PO ×3 (09:00→20:06)
[2021-07-26] MEDS: Nicotine Polacrilex 2 MG GUM BUCCAL ×2 (09:00→19:15)
[2021-07-26] MEDS: cloZAPine 25 MG TABLET 12.5 MG PO (09:00)
[2021-07-26] MEDS: Benztropine Mesylate 1 MG TABLET PO ×2 (09:00→20:06)
[2021-07-26 13:00] VITALS: BP 102/55; PULSE 90; TEMP 37; O2SAT 96
--- NOTE | 2021-07-26 17:05 | MHC.SL.SWA ---
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 [place] [facility] followed to current placement in [facility]. Pt now tolerating diet with greater consistencies and varieties of food (ADVANCED MECHANICAL/ALTERED) and THIN liquids w/o difficulty. Recommend continuation of this diet w/ D/C Speech. Risk of Aspiration Due to: HX Dystonia affecting oral mechanism. Dysphasia Diet Status: Liquid Consistency and Strategies for Safe Swallow: Liquid Intake Recommendation: Thin Liquid Intake Strategies: Small Sips Solid Food Consistency: Dietary Recommendations: ADVANCED MECHANICAL/ALTERED (NDD3) Additional Modifications to Solid Foods: Oral Medication Intake: Whole with Puree Compensatory Strategies and Precautions to be Taken for Safe Swallow: Sitting Upright (90 deg) Liquids from Straw Supervision While Eating and Drinking for Safe Swallow: Intermittent Supervision Foods to Avoid: Tough, difficult to chew solids Swallowing Recommended Treatments: Compens. Strategy Educat. Recommendation for Speech: Pt seen today a.m. for TX. Pt was lying prone on bed, w/face to wall, did not adjust w/presence of RAIL CAR LOADER but answered questions. Pt reported that he had eaten a breakfast of pancakes, sausage and eggs w/o difficulty and was routinely drinking liquids w/straw. Pt taking supplement shakes to meet dietary needs as well. Pt has been tolerating current diet of ADVANCED MECHANICAL/ALTERED w/THIN LIQUIDS well without incident. Recommend these diet consistencies be continued, D/C Speech at this time. Comment: Frequency/Duration: Date Range for Service Req: Timeline to reassess: Director Of Sales And Marketing Clinican/Clinical Fellow: No Supervisory Statement: I have reviewed and agree with the student/clinical fellow's documentation: N/A Speech Language Pathologist: Paty Harris M.A., CCC-RAIL CAR LOADER
[2021-07-26 18:00] VITALS: BP 123/70; PULSE 107; TEMP 36.9; O2SAT 97
--- NOTE | 2021-07-26 18:32 | P.PNPSI_ITS ---
Subjective Subjective Date of Service: 07/26/21 Reason For Visit: psychosis Interim History: Patient reports he is feeling better. He said he is able to walk much better and demonstrates for technical report writer as he walks much more able eat down the zheng. He says he is not quite back to his normal self but feels he is really improving. He says that his mouth functioning remains a little rigid but that it is also getting better and he is able to eat and drink well. He also reports a continued right hand tremor but he says this too is getting less problematic. Patient denies any SI, HI or delusional thinking. He says he is fine to remain on the unit for now though he does not like having blood draws every morning. Legal Recovery Specialist explained that this can be discontinued and was just a effort to monitor since his white count increased the other day. Mental Status Exam Mental Status Exam Narrative: Pt is alert and oriented x4; behavior is calm and cooperative; dressed in hospital gown; mood is good Affect still blunted but less so; eye contact appropriate; Speech is monotone, low, but volume improving; no dysarthria; thought process is organized and goal directed; Thought content is on tx; he denies SI/HI or AVH; no delusional/paranoid thoughts expressed. Patients insight and judgment are impaired, but adequate. Diagnostics Vital Signs (24Hr): Vital Signs - 24 hr 07/25/21 20:30 07/26/21 09:00 07/26/21 13:00 Temperature 96.9 F 97.9 F 98.6 F Pulse Rate 86 95 90 Respiratory Rate 18 Blood Pressure 120/62 131/65 102/55 L Pulse Oximetry 97 98 96 BMI result Body Mass Index 20.6 Labs Results: 07/26/21 08:17 07/22/21 12:34 Labs: Laboratory Results - last 48 hr 07/25/21 07/26/21 11:43 08:17 WBC 7.7 RBC 4.92 Hgb 15.4 Hct 45.0 MCV 91.5 MCH 31.3 MCHC 34.2 RDW 12.1 Plt Count 231 MPV 9.0 L Immature Gran % (Auto) 1.6 H Neut % (Auto) 52.6 Lymph % (Auto) 33.6 Jenkins % (Auto) 8.1 Eos % (Auto) 3.5 Baso % (Auto) 0.6 Lymph # (Auto) 2.6 Jenkins # (Auto) 0.6 Eos # (Auto) 0.3 Baso # (Auto) 0.1 Abs Immat Gran (auto) 0.12 H Absolute Neuts (auto) 4.7 4.1 Absolute Nucleated RBC 0.000 Nucleated RBC % (auto) 0.0 Imaging Radiology Impressions: ITS Impressions Chest X-Ray 07/21/21 12:22 IMPRESSION: Unremarkable examination. Medications Medications Current Medications Acetaminophen (Acetaminophen 325 Mg Tablet) 650 mg PO Q6H PRN PRN Reason: Pain, Mild (Pain Scale 1-3) Last Admin: 07/24/21 18:07 Dose: 650 mg Documented by: Al Hydroxide/Mg Hydroxide (Magnesium Hydrox/Alum Hydrox 30 Ml Oral.Susp) 30 ml PO Q6H PRN PRN Reason: Heartburn/Nausea Amantadine HCl (Amantadine Hcl 100 Mg Capsule) 100 mg PO BID [facility] Last Admin: 07/26/21 09:00 Dose: 100 mg Documented by: Artificial Tears (Artificial Tears 15 Ml Drops) 2 drop EYE-BOTH Q4H PRN PRN Reason: dry eyes Benztropine Mesylate (Benztropine Mesylate 1 Mg Tablet) 1 mg PO BID [facility] Last Admin: 07/26/21 09:00 Dose: 1 mg Documented by: Clozapine (Clozapine 25 Mg Tablet) 12.5 mg PO DAILY [facility] Clozapine (Clozapine 25 Mg Tablet) 25 mg PO BEDTIME [facility] Docusate Sodium (Docusate Sodium 100 Mg Capsule) 100 mg PO DAILY PRN PRN Reason: Constipation Docusate Sodium (Docusate Sodium 100 Mg Capsule) 100 mg PO BEDTIME [facility] Last Admin: 07/25/21 20:38 Dose: 100 mg Documented by: Lorazepam (Lorazepam 1 Mg Tablet) 1 mg PO TID [facility] Last Admin: 07/26/21 14:20 Dose: 1 mg Documented by: Magnesium Hydroxide (Milk Of Magnesia 30 Ml Oral.Susp) 30 ml PO DAILY PRN PRN Reason: Constipation Nicotine (Nicotine 14 Mg Patch.Td24) 14 mg TRANSDERMA DAILY [facility] Last Admin: 07/26/21 08:59 Dose: 14 mg Documented by: Nicotine Polacrilex (Nicotine Polacrilex 2 Mg Gum) 2 mg BUCCAL Q2H PRN PRN Reason: Nicotine Cravings Last Admin: 07/26/21 09:00 Dose: 2 mg Documented by: Pharmacy Consult (Consult Rx Perform Med Rec) 1 each MISCELLANE ONCE PRN PRN Reason: Consult order Polyethylene Glycol (Polyethylene Glycol 3350 17 Gm Powd.Pack) 17 gm PO DAILY PRN PRN Reason: Constipation Propranolol HCl (Propranolol Hcl 10 Mg Tablet) 10 mg PO TID EUGENIA; Protocol Last Admin: 07/26/21 14:20 Dose: 10 mg Documented by: Trazodone HCl (Trazodone Hcl 50 Mg Tablet) 50 mg PO BEDTIME PRN PRN Reason: Insomnia Last Admin: 07/23/21 21:37 Dose: 50 mg Documented by: Allergies Allergies Allergy/AdvReac Type Severity Reaction Status Date / Time diphenhydramine Allergy Unknown unknown Verified 10/12/20 04:33 [From BENADRYL] haloperidol [From HALDOL] Allergy Unknown unknown Verified 10/12/20 04:33 paliperidone AdvReac Severe dystonia Verified 03/30/21 23:47 Assessment & Plan Assessment & Plan (1) Fever: Status: Resolved Code(s): R50.9 - Fever, unspecified Assessment and Plan: resolved as 07/22/21 (2) Lactic acidosis: Status: Resolved Code(s): E87.2 - Acidosis Assessment and Plan: lactic acid drawn today 07/22/21 normal (3) Leukocytosis: Status: Resolved Code(s): D72.829 - Elevated white blood cell count, unspecified Assessment and Plan: WBC drawn today normal range (4) Schizoaffective disorder, bipolar type: Code(s): F25.0 - Schizoaffective disorder, bipolar type (5) Extrapyramidal symptom: Status: Acute Code(s): R29.818 - Other symptoms and signs involving the nervous system (6) Acute dystonic reaction due to drugs: Status: Acute Code(s): G24.02 - Drug induced acute dystonia Assessment and Plan: IMPRESSION: This is a 26-year-old male with past medical history of schizoaffective disorder who presents from medical floor following treatment for extrapyramidal symptoms and acute dystonic reaction from administered DAS of fluphenazine decaonate of 100mg on 06/14. Pt has hx of multiple inpatient admissions for psychotic sx, amish preoccupation, command AH, impulsive and unsafe bx, paranoid ideations, and agitation. He was last admitted to [facility] after treatment for suicide attempt by self inflicted neck laceration; there he was started on Fluphenazine and subsequently given DAS.? On admission, pt was severely dystonic, rigid, with cogwheeling b/l arms/legs and parkinsonian tremor, unable to attend to ADL's without assistance, including eating, drinking, tolieting, standing or walking, difficulty talking and with a fixed stare. Zyprexa discontinued. Pt was treated with congentin and ativan; pt had some urinary retention which eventually cleared; ?dystonic/EPS symptoms started to clear when started on Amantadine which was tritrated to 100mg BID. Pt is not back to baseline, but can attend to most ADL's on his own or with only some assistance.? Patient denied any SI/HI/AVH and did not expressed any paranoid/delusional ideations; thought process is linear and goal directed. On admission to [address] ent continues to deny any SI/HI/AVH and denies any delusional/paranoid ideations. He says he knows he's had these symptoms in the past but they are not present now. Pt is ambivalent about restarting antipsychotics given his recent experience of side-effect but also due his limited insight into the extent of his psychiatric illness. Patient says he did not come to the hospital this time for being unsafe but for a medication side-effect. He acknowledges that he could again become delusional but if so that will be his problem to deal with. He was willing to entertain Clozapine but does not think he'll really be available for weekly blood draws. Patient says that his outpt provider Dr. Light told him not to take any antipsychotics for now and he says he wants to wait for Dr. Light recommendations before restarting any medications. Patient however changed his mind and agreed to start clozapine. On admission pt has been psychiatrically stable, w/out psychosis or anna; currently he is still benefiting from effects of DAS however, this will likely wear off soon. Patient has agreed to start clozapine. However can take weeks to titrate to a therapeutic dose. When patient is off medications patient has history of quickly becoming disorganized, manic, psychotic and suicidal.? While it is possible that clozapine could quickly take effect and for patient to remain stable, he remains with limited insight, which combined with his chronic pattern of non-adherence with meds makes disposition planning difficult. There has been some discussion whether not patient requires VIBRA for long-term stabilization. 07/20 Patient at 1st ambivalent however he decided to have a trial of clozapine and agrees to get blood draws once a week even though it will mildly curb his enthusiastically pursued outdoor adventures.? Legal Recovery Specialist discussed case with Dr. Jerez who agrees with trial of clozapine as it has a very low risk for EPS/dystonia, is good for refractory psychotic illness (patient has failed Abilify, Haldol, Invega, Seroquel, fluphenazine, ziprasidone, Zyprexa (which is only partially helpful and patient reports it causes tremor)) and helpful for suicidality.? Legal Recovery Specialist spoke with patient's outpatient [facility] nurse Camelia ([phone]) who is hopeful this can work and thinks the team can come up with a plan to accommodate patient getting this medication. -Today, pt was mildly febrile 100.2, mildly tachy HR 92 with elevated WBC 08037; meets SIRS criteria see below for workup; otherwise, remains psychiatrically stable; dystonia/EPS continue to lessen 07/25/21: Patient is stable; fever, leukocytosis, lactic acidosis resolved; patient agrees to restarting clozapine. He is asking about when he can discharge however is currently willing to stay. PLAN: On CV (Rescinded 3 day on 07/20) 1. Schizoaffective DO: pt agrees to trial of Clozapine including 1/week blood draws CBC w/ diff weekly; registered pt in [facility] Titrating clozapine Clozapine 50 mg q.h.s. Will start clozapine 12.5 mg q.a.m. -literature recommends about 25 mg per day increasing dose; if patient tolerates will increase titration rate patient is stable leukocytosis resolved; will monitor 2.?SIRS: mildly febrile, elevated WBC, mildly tachy: due to Medication reaction (infectious process r./o): 07/20 pt mildly febrile 100.2, mildly tachy HR 92 with elevated WBC 96390; meets SIRS criteria Low-grade fever -RESOLVED x 24+ hours Elevated WBCs - wbc normal range with draw Lactic acidosis - lactic acid in normal range blood draw No clear source of infection identified, patient is not septic CXR negative -NMS R/O UA: wnl other labs wnl covid/influenza/RSV Neg [facility]DH: WNL Plan: -RESTARTE CLOZAPINE 12.5MG BID; patient has severe psychotic disorder and if untreated can become unsafe. Patient is currently stable; will monitor -CBC daily -vitals t.i.d. 3. EPS/Dystonia: improving patient was on 1:1 for milue safety (pt has hx of being inappropriate with female staff); low threshold for restarting one-to-one continue amantadine 100 mg BID continue ativan 1mg TID Cogentin 1 mg b.i.d. Propranolol 10 mg t.i.d. DC Lovenox as patient refuses this medication and is actively ambulating on his own on the unit Pt/OT daily Speech eval advanced to solid foods 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 He was on benztropine 1 mg twice a day.? For now, I suggest continuing same dose of benztropine.? ? Increasing dose of medicine for tremor might result in dry mouth dizziness and confusion.? Instead, the antipsychotic with lower chance of similar complication is advised. I spent minutes with the patient and/or on the patient floor today, greater than?50% of which was spent counseling/coordinating care. Reason for contiued inpatient stay Substantial Risk for: other
[2021-07-26] MEDS: Docusate Sodium 100 MG CAPSULE PO (20:05)
[2021-07-26] MEDS: cloZAPine 25 MG TABLET PO (20:06)
[2021-07-27 09:00] VITALS: BP 117/63; PULSE 96; TEMP 36.6; O2SAT 97
[2021-07-27] MEDS: Nicotine 14 MG PATCH.TD24 TRANSDERMA (09:11)
[2021-07-27] MEDS: Propranolol HCL 10 MG TABLET PO ×3 (09:12→20:38)
[2021-07-27] MEDS: LORazepam 1 MG TABLET PO ×2 (09:12→20:40)
[2021-07-27] MEDS: amantadine HCL 100 MG CAPSULE PO ×2 (09:12→20:41)
[2021-07-27] MEDS: cloZAPine 25 MG TABLET 12.5 MG PO (09:12)
[2021-07-27] MEDS: Benztropine Mesylate 1 MG TABLET PO ×2 (09:13→20:40)
[2021-07-27 13:00] VITALS: BP 117/59; PULSE 107; TEMP 37; O2SAT 96
--- NOTE | 2021-07-27 16:34 | HO.PSYCHPN ---
Subjective Subjective Date of Service: 07/27/21 Reason For Visit: psychosis Interim History: pt said he's feeling better, able to walk better overall move better and tremor continues to decrease. He says his face is still a little stiff but he is relieved at how much improvement he has made over the past weeks. Patient shared with writer editor how scared he was and now grateful he is that his dystonic reaction seems to be resolving. Patient said that he is fine with remaining on the unit for now to get titrated on clozapine. He denies any medication side effects that he is aware of. Of note, patient's affect is more naturally expressive. He is pleasant, calm and friendly. He denies any SI, HI or AVH or paranoid thinking. Mental Status Exam Mental Status Exam Narrative: Pt is alert and oriented x4; behavior is calm, friendly and cooperative; dressed in hospital pants, shirt; mood is good Affect still somewhat blunted but less so and more naturally expressive; eye contact appropriate; Speech is monotone but less so, more inflection; normal volume and prosody; thought process is organized and goal directed; Thought content is on tx; he denies SI/HI or AVH; no delusional/paranoid thoughts expressed. Patients insight and judgment seem adequate Diagnostics Vital Signs (24Hr): Vital Signs - 24 hr 07/26/21 18:00 07/27/21 09:00 07/27/21 13:00 Temperature 98.4 F 97.9 F 98.6 F Pulse Rate 107 H 96 107 H Blood Pressure 123/70 117/63 117/59 L Pulse Oximetry 97 97 96 BMI result Body Mass Index 20.6 Labs Results: 07/26/21 08:17 07/22/21 12:34 Labs: Laboratory Results - last 48 hr 07/26/21 08:17 WBC 7.7 RBC 4.92 Hgb 15.4 Hct 45.0 MCV 91.5 MCH 31.3 MCHC 34.2 RDW 12.1 Plt Count 231 MPV 9.0 L Immature Gran % (Auto) 1.6 H Neut % (Auto) 52.6 Lymph % (Auto) 33.6 [place] % (Auto) 8.1 Eos % (Auto) 3.5 Baso % (Auto) 0.6 Lymph # (Auto) 2.6 [place] # (Auto) 0.6 Eos # (Auto) 0.3 Baso # (Auto) 0.1 Abs Immat Gran (auto) 0.12 H Absolute Neuts (auto) 4.1 Absolute Nucleated RBC 0.000 Nucleated RBC % (auto) 0.0 Imaging Radiology Impressions: ITS Impressions Chest X-Ray 07/21/21 12:22 IMPRESSION: Unremarkable examination. Medications Medications Current Medications Acetaminophen (Acetaminophen 325 Mg Tablet) 650 mg PO Q6H PRN PRN Reason: Pain, Mild (Pain Scale 1-3) Last Admin: 07/24/21 18:07 Dose: 650 mg Documented by: Al Hydroxide/Mg Hydroxide (Magnesium Hydrox/Alum Hydrox 30 Ml Oral.Susp) 30 ml PO Q6H PRN PRN Reason: Heartburn/Nausea Amantadine HCl (Amantadine Hcl 100 Mg Capsule) 100 mg PO BID [facility] Last Admin: 07/27/21 09:12 Dose: 100 mg Documented by: Artificial Tears (Artificial Tears 15 Ml Drops) 2 drop EYE-BOTH Q4H PRN PRN Reason: dry eyes Benztropine Mesylate (Benztropine Mesylate 1 Mg Tablet) 1 mg PO BID [facility] Last Admin: 07/27/21 09:13 Dose: 1 mg Documented by: Clozapine (Clozapine 25 Mg Tablet) 12.5 mg PO DAILY [facility] Last Admin: 07/27/21 09:12 Dose: 12.5 mg Documented by: Clozapine (Clozapine 25 Mg Tablet) 50 mg PO BEDTIME EUGENIA Docusate Sodium (Docusate Sodium 100 Mg Capsule) 100 mg PO DAILY PRN PRN Reason: Constipation Docusate Sodium (Docusate Sodium 100 Mg Capsule) 100 mg PO BEDTIME [facility] Last Admin: 07/26/21 20:05 Dose: 100 mg Documented by: Lorazepam (Lorazepam 1 Mg Tablet) 1 mg PO BID [facility] Magnesium Hydroxide (Milk Of Magnesia 30 Ml Oral.Susp) 30 ml PO DAILY PRN PRN Reason: Constipation Nicotine (Nicotine 14 Mg Patch.Td24) 14 mg TRANSDERMA DAILY [facility] Last Admin: 07/27/21 09:11 Dose: 14 mg Documented by: Nicotine Polacrilex (Nicotine Polacrilex 2 Mg Gum) 2 mg BUCCAL Q2H PRN PRN Reason: Nicotine Cravings Last Admin: 07/26/21 19:15 Dose: 2 mg Documented by: Pharmacy Consult (Consult Rx Perform Med Rec) 1 each MISCELLANE ONCE PRN PRN Reason: Consult order Polyethylene Glycol (Polyethylene Glycol 3350 17 Gm Powd.Pack) 17 gm PO DAILY PRN PRN Reason: Constipation Propranolol HCl (Propranolol Hcl 10 Mg Tablet) 10 mg PO TID [facility]; Protocol Last Admin: 07/27/21 14:40 Dose: 10 mg Documented by: Trazodone HCl (Trazodone Hcl 50 Mg Tablet) 50 mg PO BEDTIME PRN PRN Reason: Insomnia Last Admin: 07/23/21 21:37 Dose: 50 mg Documented by: Allergies Allergies Allergy/AdvReac Type Severity Reaction Status Date / Time diphenhydramine Allergy Unknown unknown Verified 10/12/20 04:33 [From BENADRYL] haloperidol [From HALDOL] Allergy Unknown unknown Verified 10/12/20 04:33 paliperidone AdvReac Severe dystonia Verified 03/30/21 23:47 Assessment & Plan Assessment & Plan (1) Fever: Status: Resolved Code(s): R50.9 - Fever, unspecified Assessment and Plan: resolved as 07/22/21 (2) Lactic acidosis: Status: Resolved Code(s): E87.2 - Acidosis Assessment and Plan: lactic acid drawn today 07/22/21 normal (3) Leukocytosis: Status: Resolved Code(s): D72.829 - Elevated white blood cell count, unspecified Assessment and Plan: WBC drawn today normal range (4) Schizoaffective disorder, bipolar type: Code(s): F25.0 - Schizoaffective disorder, bipolar type (5) Extrapyramidal symptom: Status: Acute Code(s): R29.818 - Other symptoms and signs involving the nervous system (6) Acute dystonic reaction due to drugs: Status: Acute Code(s): G24.02 - Drug induced acute dystonia Assessment and Plan: IMPRESSION: This is a 26-year-old male with past medical history of schizoaffective disorder who presents from medical floor following treatment for extrapyramidal symptoms and acute dystonic reaction from administered DAS of fluphenazine decaonate of 100mg on 06/14. Pt has hx of multiple inpatient admissions for psychotic sx, spiritism preoccupation, command AH, impulsive and unsafe bx, paranoid ideations, and agitation. He was last admitted to [facility] after treatment for suicide attempt by self inflicted neck laceration; there he was started on Fluphenazine and subsequently given DAS.? On admission, pt was severely dystonic, rigid, with cogwheeling b/l arms/legs and parkinsonian tremor, unable to attend to ADL's without assistance, including eating, drinking, tolieting, standing or walking, difficulty talking and with a fixed stare. Zyprexa discontinued. Pt was treated with congentin and ativan; pt had some urinary retention which eventually cleared; ?dystonic/EPS symptoms started to clear when started on Amantadine which was tritrated to 100mg BID. Pt is not back to baseline, but can attend to most ADL's on his own or with only some assistance.? Patient denied any SI/HI/AVH and did not expressed any paranoid/delusional ideations; thought process is linear and goal directed. On admission to patient continues to deny any SI/HI/AVH and denies any delusional/paranoid ideations. He says he knows he's had these symptoms in the past but they are not present now. Pt is ambivalent about restarting antipsychotics given his recent experience of side-effect but also due his limited insight into the extent of his psychiatric illness. Patient says he did not come to the hospital this time for being unsafe but for a medication side-effect. He acknowledges that he could again become delusional but if so that will be his problem to deal with. He was willing to entertain Clozapine but does not think he'll really be available for weekly blood draws. Patient says that his outpt provider Dr. Light told him not to take any antipsychotics for now and he says he wants to wait for Dr. Light recommendations before restarting any medications. Patient however changed his mind and agreed to start clozapine. 07/20 Patient at 1st ambivalent however he decided to have a trial of clozapine and agrees to get blood draws once a week even though it will mildly curb his enthusiastically pursued outdoor adventures.? Chief Deputy Sheriff discussed case with Dr. Jerez who agrees with trial of clozapine as it has a very low risk for EPS/dystonia, is good for refractory psychotic illness (patient has failed Abilify, Haldol, Invega, Seroquel, fluphenazine, ziprasidone, Zyprexa (which is only partially helpful and patient reports it causes tremor)) and helpful for suicidality.? Chief Deputy Sheriff spoke with patient's outpatient [facility] nurse Camelia ([phone]) who is hopeful this can work and thinks the team can come up with a plan to accommodate patient getting this medication. -Today, pt was mildly febrile 100.2, mildly tachy HR 92 with elevated WBC 14713; meets SIRS criteria see below for workup; otherwise, remains psychiatrically stable; dystonia/EPS continue to lessen 07/25/21: Patient is stable; fever, leukocytosis, lactic acidosis resolved; patient agrees to restarting clozapine. He is asking about when he can discharge however is currently willing to stay. 07/27/21 patient continues to improve and is clearly walking and talking better; affect is more naturally expressive; some residual stiffness and and tremor but continues to improve. Patient continues to deny any SI, HI or AVH. He also denies any delusional thinking. He is okay with remain on the unit for titration of clozapine. On admission pt has been psychiatrically stable, w/out psychosis or anna; currently he is still benefiting from effects of DAS however, this will likely wear off soon. Patient has agreed to start clozapine. However can take weeks to titrate to a therapeutic dose. When patient is off medications patient has history of quickly becoming disorganized, manic, psychotic and suicidal.? While it is possible that clozapine could quickly take effect and for patient to remain stable, he remains with limited insight, which combined with his chronic pattern of non-adherence with meds makes disposition planning difficult. There has been some discussion whether not patient requires VIBRA for long-term stabilization. As of 07/27/2021 patient is demonstrating good behavioral and impulse control on the unit; he is also demonstrating reasonable insight and judgment in saying that he knows he needs medications and is willing to remain on the unit as clozapine gets titrated. This does not necessarily mean he accepts that he has a psychiatric illness, but it's improvement from past level of insight. Chief Deputy Sheriff is cautiously optimistic. However his history is fraught with medication noncompliance in the community and quick decompensation into severely unsafe behaviors. Also, Jose historically wants to discharge quickly and writer editor is concerned that he could soon become inpatient with remaining on the unit. Currently, patient agrees to remain on this medication and get weekly blood draws; again however he has historically been difficult to track down by his [employer] workers, making med management as an outpatient challenging. Chief Deputy Sheriff and team will discuss this with his mother and manager rn case (pt gave verbal permision/LEA for writer editor/team to talk with both in front of 2 witnesses, this writer editor and nurse Jeanne). Given this history, there is an effort to titrate clozapine as quickly as tolerated. Conversely, patient has had numerous negative side-effects and is still recovering from severe dystonic reaction from antipsychotic and so there is good reason to titrate slowly in effort to mitigate any potential side effects of clozapine, lest turn patient off to this medication as well. PLAN: On CV (Rescinded 3 day on 07/20) 1. Schizoaffective DO: pt agrees to trial of Clozapine including 1/week blood draws CBC w/ diff? weekly; registered pt in [facility] Titrating clozapine -Clozapine 50 mg q.h.s. -clozapine 12.5 mg q.a.m. -literature recommends about 25 mg per day increasing dose; if patient tolerates will increase titration rate patient is stable leukocytosis resolved; will monitor patient off 1:1 as has been appropriate (pt has hx of being inappropriate with female staff); low threshold for restarting one-to-one 2. EPS/Dystonia: improving *LOWERED TO ativan 1mg BID (down from TID) continue amantadine 100 mg BID Cogentin 1 mg b.i.d. Propranolol 10 mg t.i.d. DC Lovenox as patient refuses this medication and is actively ambulating on his own on the unit Pt/OT daily Speech eval advanced to solid foods 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 He was on benztropine 1 mg twice a day.? For now, I suggest continuing same dose of benztropine.? ? Increasing dose of medicine for tremor might result in dry mouth dizziness and confusion.? Instead, the antipsychotic with lower chance of similar complication is advised. 3.?SIRS: mildly febrile, elevated WBC, mildly tachy: due to Medication reaction (infectious process r./o): 07/20 pt mildly febrile 100.2, mildly tachy HR 92 with elevated WBC 08621; meets SIRS criteria Low-grade fever?-RESOLVED x 24+? hours Elevated WBCs -?wbc normal range with 12/31/ 21 draw Lactic acidosis -?lactic acid in normal range ? blood draw No clear source of infection identified, patient is not septic CXR negative -NMS R/O UA: wnl other labs wnl covid/influenza/RSV Neg LDH: WNL I spent minutes with the patient and/or on the patient floor today, greater than?50% of which was spent counseling/coordinating care. Reason for contiued inpatient stay Substantial Risk for: rapid decompensation
[2021-07-27 18:23] VITALS: BP 111/62; PULSE 90; RESP 16; TEMP 37.2; O2SAT 95
[2021-07-27] MEDS: Nicotine Polacrilex 2 MG GUM BUCCAL ×2 (18:26→20:45)
[2021-07-27] MEDS: Docusate Sodium 100 MG CAPSULE PO (20:39)
[2021-07-27] MEDS: cloZAPine 25 MG TABLET 50 MG PO (20:40)
[2021-07-28 09:48] VITALS: BP 121/58; PULSE 121; RESP 16; TEMP 36.9; O2SAT 97
[2021-07-28] MEDS: cloZAPine 25 MG TABLET 12.5 MG PO (09:50)
[2021-07-28] MEDS: amantadine HCL 100 MG CAPSULE PO ×2 (09:50→21:00)
[2021-07-28] MEDS: LORazepam 1 MG TABLET PO (09:50)
[2021-07-28] MEDS: Benztropine Mesylate 1 MG TABLET PO ×2 (09:50→21:00)
[2021-07-28] MEDS: Nicotine 14 MG PATCH.TD24 TRANSDERMA (09:51)
[2021-07-28 13:00] VITALS: BP 129/62; PULSE 119; RESP 14
--- NOTE | 2021-07-28 13:39 | P.PNPSI_ITS ---
Subjective Subjective Date of Service: 07/28/21 Reason For Visit: psychosis Interim History: Reports he is doing well. Asked about how much longer will he need to remain on the unit. He accepts that telegraphic typewriter repairer believes is important for him to remain as Clozaril is increased toa therapeutic dose and he was encouraged to know that telegraphic typewriter repairer continues to titrate. Mental Status Exam Mental Status Exam Narrative: Pt is alert and oriented x4; behavior is calm, friendly and cooperative; dressed in hospital pants, shirt; mood is good Affect still somewhat blunted but less so and more naturally expressive; eye contact appropriate; Speech is monotone but less so, more inflection; normal volume and prosody; thought process is organized and goal directed; Thought content is on tx; he denies SI/HI or AVH; no delusional/paranoid thoughts expressed. Patients insight and judgment seem adequate Diagnostics Vital Signs (24Hr): Vital Signs - 24 hr 07/27/21 18:23 07/28/21 09:48 Temperature 98.9 F 98.4 F Pulse Rate 90 121 H Respiratory Rate 16 16 Blood Pressure 111/62 121/58 L Pulse Oximetry 95 97 BMI result Body Mass Index 20.6 Labs Results: 07/26/21 08:17 07/22/21 12:34 Imaging Radiology Impressions: ITS Impressions Chest X-Ray 07/21/21 12:22 IMPRESSION: Unremarkable examination. Medications Medications Current Medications Acetaminophen (Acetaminophen 325 Mg Tablet) 650 mg PO Q6H PRN PRN Reason: Pain, Mild (Pain Scale 1-3) Last Admin: 07/24/21 18:07 Dose: 650 mg Documented by: Al Hydroxide/Mg Hydroxide (Magnesium Hydrox/Alum Hydrox 30 Ml Oral.Susp) 30 ml PO Q6H PRN PRN Reason: Heartburn/Nausea Amantadine HCl (Amantadine Hcl 100 Mg Capsule) 100 mg PO BID [facility] Last Admin: 07/28/21 09:50 Dose: 100 mg Documented by: Artificial Tears (Artificial Tears 15 Ml Drops) 2 drop EYE-BOTH Q4H PRN PRN Reason: dry eyes Benztropine Mesylate (Benztropine Mesylate 1 Mg Tablet) 1 mg PO BID [facility] Last Admin: 07/28/21 09:50 Dose: 1 mg Documented by: Clozapine (Clozapine 25 Mg Tablet) 12.5 mg PO DAILY [facility] Last Admin: 07/28/21 09:50 Dose: 12.5 mg Documented by: Clozapine (Clozapine 25 Mg Tablet) 50 mg PO BEDTIME [facility] Last Admin: 07/27/21 20:40 Dose: 50 mg Documented by: Docusate Sodium (Docusate Sodium 100 Mg Capsule) 100 mg PO DAILY PRN PRN Reason: Constipation Docusate Sodium (Docusate Sodium 100 Mg Capsule) 100 mg PO BEDTIME [facility] Last Admin: 07/27/21 20:39 Dose: 100 mg Documented by: Lorazepam (Lorazepam 1 Mg Tablet) 1 mg PO BID [facility] Last Admin: 07/28/21 09:50 Dose: 1 mg Documented by: Magnesium Hydroxide (Milk Of Magnesia 30 Ml Oral.Susp) 30 ml PO DAILY PRN PRN Reason: Constipation Nicotine (Nicotine 14 Mg Patch.Td24) 14 mg TRANSDERMA DAILY [facility] Last Admin: 07/28/21 09:51 Dose: 14 mg Documented by: Nicotine Polacrilex (Nicotine Polacrilex 2 Mg Gum) 2 mg BUCCAL Q2H PRN PRN Reason: Nicotine Cravings Last Admin: 07/27/21 20:45 Dose: 2 mg Documented by: Pharmacy Consult (Consult Rx Perform Med Rec) 1 each MISCELLANE ONCE PRN PRN Reason: Consult order Polyethylene Glycol (Polyethylene Glycol 3350 17 Gm Powd.Pack) 17 gm PO DAILY PRN PRN Reason: Constipation Propranolol HCl (Propranolol Hcl 10 Mg Tablet) 10 mg PO TID [facility]; Protocol Last Admin: 07/28/21 09:53 Dose: Not Given Documented by: Trazodone HCl (Trazodone Hcl 50 Mg Tablet) 50 mg PO BEDTIME PRN PRN Reason: Insomnia Last Admin: 07/23/21 21:37 Dose: 50 mg Documented by: Allergies Allergies Allergy/AdvReac Type Severity Reaction Status Date / Time diphenhydramine Allergy Unknown unknown Verified 10/12/20 04:33 [From BENADRYL] haloperidol [From HALDOL] Allergy Unknown unknown Verified 10/12/20 04:33 paliperidone AdvReac Severe dystonia Verified 03/30/21 23:47 Assessment & Plan Assessment & Plan (1) Fever: Status: Resolved Code(s): R50.9 - Fever, unspecified Assessment and Plan: resolved as 07/22/21 (2) Lactic acidosis: Status: Resolved Code(s): E87.2 - Acidosis Assessment and Plan: lactic acid drawn today 07/22/21 normal (3) Leukocytosis: Status: Resolved Code(s): D72.829 - Elevated white blood cell count, unspecified Assessment and Plan: WBC drawn today normal range (4) Schizoaffective disorder, bipolar type: Code(s): F25.0 - Schizoaffective disorder, bipolar type (5) Extrapyramidal symptom: Status: Acute Code(s): R29.818 - Other symptoms and signs involving the nervous system (6) Acute dystonic reaction due to drugs: Status: Acute Code(s): G24.02 - Drug induced acute dystonia Assessment and Plan: IMPRESSION: This is a 26-year-old male with past medical history of schizoaffective disorder who presents from medical floor following treatment for extrapyramidal symptoms and acute dystonic reaction from administered DAS of fluphenazine decaonate of 100mg on 06/14. Pt has hx of multiple inpatient admissions for psychotic sx, yazidism preoccupation, command AH, impulsive and unsafe bx, paranoid anneliese ations, and agitation. He was last admitted to [facility] after treatment for suicide attempt by self inflicted neck laceration; there he was started on Fluphenazine and subsequently given DAS.? On admission, pt was severely dystonic, rigid, with cogwheeling b/l arms/legs and parkinsonian tremor, unable to attend to ADL's without assistance, including eating, drinking, tolieting, standing or walking, difficulty talking and with a fixed stare. Zyprexa discontinued. Pt was treated with congentin and ativan; pt had some urinary retention which eventually cleared; ?dystonic/EPS symptoms started to clear when started on Amantadine which was tritrated to 100mg BID. Pt is not back to baseline, but can attend to most ADL's on his own or with only some assistance.? Patient denied any SI/HI/AVH and did not expressed any paranoid/delusional ideations; thought process is linear and goal directed. On admission to patient continues to deny any SI/HI/AVH and denies any delusional/paranoid ideations. He says he knows he's had these symptoms in the past but they are not present now. Pt is ambivalent about restarting antipsychotics given his recent experience of side-effect but also due his limited insight into the extent of his psychiatric illness. Patient says he did not come to the hospital this time for being unsafe but for a medication side-effect. He acknowledges that he could again become delusional but if so that will be his problem to deal with. He was willing to entertain Clozapine but does not think he'll really be available for weekly blood draws. Patient says that his outpt provider Dr. Light told him not to take any antipsychotics for now and he says he wants to wait for Dr. Light recommendations before restarting any medications. Patient however changed his mind and agreed to start clozapine. 07/20 Patient at 1st ambivalent however he decided to have a trial of clozapine and agrees to get blood draws once a week even though it will mildly curb his enthusiastically pursued outdoor adventures.? Jack Prizer discussed case with Dr. Jerez who agrees with trial of clozapine as it has a very low risk for EPS/dystonia, is good for refractory psychotic illness (patient has failed Abilify, Haldol, Invega, Seroquel, fluphenazine, ziprasidone, Zyprexa (which is only partially helpful and patient reports it causes tremor)) and helpful for suicidality.? Jack Prizer spoke with patient's outpatient [facility] nurse Camelia ([phone]) who is hopeful this can work and thinks the team can come up with a plan to accommodate patient getting this medication. -Today, pt was mildly febrile 100.2, mildly tachy HR 92 with elevated WBC 17682; meets SIRS criteria see below for workup; otherwise, remains psychiatrically stable; dystonia/EPS continue to lessen 07/25/21: Patient is stable; fever, leukocytosis, lactic acidosis resolved; patient agrees to restarting clozapine. He is asking about when he can discharge however is currently willing to stay. 07/27/21 patient continues to improve and is clearly walking and talking better; affect is more naturally expressive; some residual stiffness and and tremor but continues to improve. Patient continues to deny any SI, HI or AVH. He also denies any delusional thinking. He is okay with remain on the unit for titration of clozapine. On admission pt has been psychiatrically stable, w/out psychosis or anna; currently he is still benefiting from effects of DAS however, this will likely wear off soon. Patient has agreed to start clozapine. However can take weeks to titrate to a therapeutic dose. When patient is off medications patient has history of quickly becoming disorganized, manic, psychotic and suicidal.? While it is possible that clozapine could quickly take effect and for patient to remain stable, he remains with limited insight, which combined with his chronic pattern of non-adherence with meds makes disposition planning difficult. There has been some discussion whether not patient requires VIBRA for long-term stabilization. As of 07/27/2021 patient is demonstrating good behavioral and impulse control on the unit; he is also demonstrating reasonable insight and judgment in saying that he knows he needs medications and is willing to remain on the unit as clozapine gets titrated. This does not necessarily mean he accepts that he has a psychiatric illness, but it's improvement from past level of insight. Jack Prizer is cautiously optimistic. However his history is fraught with medication noncompliance in the community and quick decompensation into severely unsafe behaviors. Also, Jose historically wants to discharge quickly and telegraphic typewriter repairer is concerned that he could soon become inpatient with remaining on the unit. Currently, patient agrees to remain on this medication and get weekly blood draws; again however he has historically been difficult to track down by his [facility] workers, making med management as an outpatient challenging. Jack Prizer and team will discuss this with his mother and disease case manager (pt gave verbal permision/LEA for telegraphic typewriter repairer/team to talk with both in front of 2 witnesses, this telegraphic typewriter repairer and nurse Jeanne). Given this history, there is an effort to titrate clozapine as quickly as tolerated. Conversely, patient has had numerous negative side- effects and is still recovering from severe dystonic reaction from antipsychotic and so there is good reason to titrate slowly in effort to mitigate any potential side effects of clozapine, lest turn patient off to this medication as well. PLAN: On CV (Rescinded 3 day on 07/20) 1. Schizoaffective DO: pt agrees to trial of Clozapine including 1/week blood draws CBC w/ diff? weekly; registered pt in [facility] Titrating clozapine -Clozapine 62.5 mg q.h.s. (on 07/28/21) -clozapine 12.5 mg q.a.m. -literature recommends about 25 mg per day increasing dose; if patient tolerates will increase titration rate patient is stable leukocytosis resolved; will monitor patient off 1:1 as has been appropriate (pt has hx of being inappropriate with female staff); low threshold for restarting one-to-one 2. EPS/Dystonia: improving *LOWERED TO ativan 1mg BID (down from TID) continue amantadine 100 mg BID Cogentin 1 mg b.i.d. Propranolol 10 mg t.i.d. DC Lovenox as patient refuses this medication and is actively ambulating on his own on the unit Pt/OT daily Speech eval advanced to solid foods 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 He was on benztropine 1 mg twice a day.? For now, I suggest continuing same dose of benztropine.? ? Increasing dose of medicine for tremor might result in dry mouth dizziness and confusion.? Instead, the antipsychotic with lower chance of similar complication is advised. 3.?SIRS: mildly febrile, elevated WBC, mildly tachy: due to Medication reaction (infectious process r./o): 07/20 pt mildly febrile 100.2, mildly tachy HR 92 with elevated WBC 81414; meets SIRS criteria Low-grade fever?-RESOLVED x 24+? hours Elevated WBCs -?wbc normal range with draw Lactic acidosis -?lactic acid in normal range ? blood draw No clear source of infection identified, patient is not septic CXR negative -NMS R/O UA: wnl other labs wnl covid/influenza/RSV Neg LDH: WNL I spent minutes with the patient and/or on the patient floor today, greater than?50% of which was spent counseling/coordinating care. Reason for contiued inpatient stay Substantial Risk for: rapid decompensation
[2021-07-28 18:00] VITALS: BP 130/78; PULSE 98; TEMP 37.1
[2021-07-28] MEDS: Nicotine Polacrilex 2 MG GUM BUCCAL (19:39)
[2021-07-28] MEDS: cloZAPine 25 MG TABLET 62.5 MG PO (20:59)
[2021-07-28] MEDS: Propranolol HCL 10 MG TABLET PO (21:00)
[2021-07-29 09:24] VITALS: TEMP 36.8
[2021-07-29] MEDS: Nicotine 14 MG PATCH.TD24 TRANSDERMA (09:26)
[2021-07-29] MEDS: LORazepam 1 MG TABLET PO ×2 (09:27→19:44)
[2021-07-29] MEDS: cloZAPine 25 MG TABLET 12.5 MG PO (09:27)
[2021-07-29] MEDS: Benztropine Mesylate 1 MG TABLET PO ×2 (09:27→19:44)
[2021-07-29] MEDS: amantadine HCL 100 MG CAPSULE PO ×2 (09:28→19:44)
[2021-07-29 09:45] VITALS: BP 138/81; PULSE 112; TEMP 36.8; O2SAT 97
[2021-07-29] MEDS: Propranolol HCL 10 MG TABLET PO ×3 (09:46→19:43)
--- NOTE | 2021-07-29 10:26 | P.PNPSI_ITS ---
Subjective Subjective Date of Service: 07/29/21 Reason For Visit: psychosis Interim History: Patient lying in bed. Says he is feeling great. He reports that his body continues to improve. He says his right leg still feels stiff but it is getting better. In terms of full physical functioning, he feels that he is a 5/5 with 10 being back to his fully normal self. Denies any SI, HI or AVH. Feels he is doing well. Denies any medication side effects and continues to agree with titration. He said morning dose is not making him tired and does not mind. Anticipates having a family meeting next week with his mother and outpatient onsite case manager Mental Status Exam Mental Status Exam Narrative: Pt is alert and oriented x4; behavior is calm, friendly and cooperative; dressed in hospital pants, shirt; mood is great Affect still somewhat blunted but less so and more naturally expressive; eye contact appropriate; Speech is monotone but less so, more inflection; normal volume and prosody; thought process is organized and goal directed; Thought content is on tx; he denies SI/HI or AVH; no delusional/paranoid thoughts expressed. Patients insight and judgment seem adequate Diagnostics Vital Signs (24Hr): Vital Signs - 24 hr 07/28/21 13:00 07/28/21 18:00 07/29/21 09:24 Temperature 98.8 F 98.3 F Pulse Rate 119 H 98 Respiratory Rate 14 Blood Pressure 129/62 130/78 Pulse Oximetry 07/29/21 09:45 Temperature 98.3 F Pulse Rate 112 H Respiratory Rate Blood Pressure 138/81 Pulse Oximetry 97 BMI result Body Mass Index 20.6 Labs Results: 07/26/21 08:17 07/22/21 12:34 Imaging Radiology Impressions: ITS Impressions Chest X-Ray 07/21/21 12:22 IMPRESSION: Unremarkable examination. Medications Medications Current Medications Acetaminophen (Acetaminophen 325 Mg Tablet) 650 mg PO Q6H PRN PRN Reason: Pain, Mild (Pain Scale 1-3) Last Admin: 07/24/21 18:07 Dose: 650 mg Documented by: Al Hydroxide/Mg Hydroxide (Magnesium Hydrox/Alum Hydrox 30 Ml Oral.Susp) 30 ml PO Q6H PRN PRN Reason: Heartburn/Nausea Amantadine HCl (Amantadine Hcl 100 Mg Capsule) 100 mg PO BID [facility] Last Admin: 07/29/21 09:28 Dose: 100 mg Documented by: Artificial Tears (Artificial Tears 15 Ml Drops) 2 drop EYE-BOTH Q4H PRN PRN Reason: dry eyes Benztropine Mesylate (Benztropine Mesylate 1 Mg Tablet) 1 mg PO BID [facility] Last Admin: 07/29/21 09:27 Dose: 1 mg Documented by: Clozapine (Clozapine 25 Mg Tablet) 12.5 mg PO DAILY [facility] Last Admin: 07/29/21 09:27 Dose: 12.5 mg Documented by: Clozapine (Clozapine 25 Mg Tablet) 62.5 mg PO BEDTIME [facility] Last Admin: 07/28/21 20:59 Dose: 62.5 mg Documented by: Docusate Sodium (Docusate Sodium 100 Mg Capsule) 100 mg PO DAILY PRN PRN Reason: Constipation Docusate Sodium (Docusate Sodium 100 Mg Capsule) 100 mg PO BEDTIME [facility] Last Admin: 07/28/21 21:07 Dose: Not Given Documented by: Lorazepam (Lorazepam 1 Mg Tablet) 1 mg PO BID [facility] Last Admin: 07/29/21 09:27 Dose: 1 mg Documented by: Magnesium Hydroxide (Milk Of Magnesia 30 Ml Oral.Susp) 30 ml PO DAILY PRN PRN Reason: Constipation Nicotine (Nicotine 14 Mg Patch.Td24) 14 mg TRANSDERMA DAILY [facility] Last Admin: 07/29/21 09:26 Dose: 14 mg Documented by: Nicotine Polacrilex (Nicotine Polacrilex 2 Mg Gum) 2 mg BUCCAL Q2H PRN PRN Reason: Nicotine Cravings Last Admin: 07/28/21 19:39 Dose: 2 mg Documented by: Pharmacy Consult (Consult Rx Perform Med Rec) 1 each MISCELLANE ONCE PRN PRN Reason: Consult order Polyethylene Glycol (Polyethylene Glycol 3350 17 Gm Powd.Pack) 17 gm PO DAILY PRN PRN Reason: Constipation Propranolol HCl (Propranolol Hcl 10 Mg Tablet) 10 mg PO TID [facility]; Protocol Last Admin: 07/29/21 09:46 Dose: 10 mg Documented by: Trazodone HCl (Trazodone Hcl 50 Mg Tablet) 50 mg PO BEDTIME PRN PRN Reason: Insomnia Last Admin: 07/23/21 21:37 Dose: 50 mg Documented by: Allergies Allergies Allergy/AdvReac Type Severity Reaction Status Date / Time diphenhydramine Allergy Unknown unknown Verified 10/12/20 04:33 [From BENADRYL] haloperidol [From HALDOL] Allergy Unknown unknown Verified 10/12/20 04:33 paliperidone AdvReac Severe dystonia Verified 03/30/21 23:47 Assessment & Plan Assessment & Plan (1) Fever: Status: Resolved Code(s): R50.9 - Fever, unspecified Assessment and Plan: resolved as 07/22/21 (2) Lactic acidosis: Status: Resolved Code(s): E87.2 - Acidosis Assessment and Plan: lactic acid drawn today 07/22/21 normal (3) Leukocytosis: Status: Resolved Code(s): D72.829 - Elevated white blood cell count, unspecified Assessment and Plan: WBC drawn today normal range (4) Schizoaffective disorder, bipolar type: Code(s): F25.0 - Schizoaffective disorder, bipolar type (5) Extrapyramidal symptom: Status: Acute Code(s): R29.818 - Other symptoms and signs involving the nervous system (6) Acute dystonic reaction due to drugs: Status: Acute Code(s): G24.02 - Drug induced acute dystonia Assessment and Plan: IMPRESSION: This is a 26-year-old male with past medical history of schizoaffective disorder who presents from medical floor following treatment for extrapyramidal symptoms and acute dystonic reaction from administered DAS of fluphenazine decaonate of 100mg on 06/14. Pt has hx of multiple inpatient admissions for psychotic sx, orthodoxy preoccupation, command AH, impulsive and unsafe bx, paranoid ideations, and agitation. He was last admitted to [facility] after treatment for suicide attempt by self inflicted neck laceration; there he was started on Fl uphenazine and subsequently given DAS.? On admission, pt was severely dystonic, rigid, with cogwheeling b/l arms/legs and parkinsonian tremor, unable to attend to ADL's without assistance, including eating, drinking, tolieting, standing or walking, difficulty talking and with a fixed stare. Zyprexa discontinued. Pt was treated with congentin and ativan; pt had some urinary retention which eventually cleared; ?dystonic/EPS symptoms started to clear when started on Amantadine which was tritrated to 100mg BID. Pt is not back to baseline, but can attend to most ADL's on his own or with only some assistance.? Patient denied any SI/HI/AVH and did not expressed any paranoid/delusional ideations; thought process is linear and goal directed. On admission to patient continues to deny any SI/HI/AVH and denies any delusional/paranoid ideations. He says he knows he's had these symptoms in the past but they are not present now. Pt is ambivalent about restarting antipsychotics given his recent e xperience of side-effect but also due his limited insight into the extent of his psychiatric illness. Patient says he did not come to the hospital this time for being unsafe but for a medication side-effect. He acknowledges that he could again become delusional but if so that will be his problem to deal with. He was willing to entertain Clozapine but does not think he'll really be available for weekly blood draws. Patient says that his outpt provider Dr. Light told him not to take any antipsychotics for now and he says he wants to wait for Dr. Light recommendations before restarting any medications. Patient however changed his mind and agreed to start clozapine. 07/20 Patient at 1st ambivalent however he decided to have a trial of clozapine and agrees to get blood draws once a week even though it will mildly curb his enthusiastically pursued outdoor adventures.? Raw Stock Machine Feeder discussed case with Dr. Jerez who agrees with trial of clozapine as it has a very low risk for EPS/dystonia, is good for refractory psychotic illness (patient has failed Abilify, Haldol, Invega, Seroquel, fluphenazine, ziprasidone, Zyprexa (which is only partially helpful and patient reports it causes tremor)) and helpful for suicidality.? Raw Stock Machine Feeder spoke with patient's outpatient [facility] nurse Camelia ([phone]) who is hopeful this can work and thinks the team can come up with a plan to accommodate patient getting this medication. -Today, pt was mildly febrile 100.2, mildly tachy HR 92 with elevated WBC 59378; meets SIRS criteria see below for workup; otherwise, remains psychiatrically stable; dystonia/EPS continue to lessen 07/25/21: Patient is stable; fever, leukocytosis, lactic acidosis resolved; pat ient agrees to restarting clozapine. He is asking about when he can discharge however is currently willing to stay. 07/27/21 patient continues to improve and is clearly walking and talking better; affect is more naturally expressive; some residual stiffness and and tremor but continues to improve. Patient continues to deny any SI, HI or AVH. He also denies any delusional thinking. He is okay with remain on the unit for titration of clozapine. 07/29/21 remains stable; no inappropriate behaviors; good impulse control. Says he is tolerating medications and feels his body continues to improve. In terms of full physical functioning, he feels that he is a 5/5 with 10 being back to his fully normal self. On admission pt has been psychiatrically stable, w/out psychosis or anna; currently he is still benefiting from effects of DAS however, this will likely wear off soon. Patient has agreed to start clozapine. However can take weeks to titrate to a therapeutic dose. When patient is off medications patient has history of quickly becoming disorganized, manic, psychotic and suicidal.? While it is possible that clozapine could quickly take effect and for patient to remain stable, he remains with limited insight, which combined with his chronic pattern of non-adherence with meds makes disposition planning difficult. There has been some discussion whether not patient requires VIBRA for long-term stabilization. As of 07/27/2021 patient is demonstrating good behavioral and impulse control on the unit; he is also demonstrating reasonable insight and judgment in saying that he knows he needs medications and is willing to remain on the unit as clozapine gets titrated. This does not necessarily mean he accepts that he has a psychiatric illness, but it's improvement from past level of insight. Raw Stock Machine Feeder is cautiously optimistic. However his history is fraught with medication noncompl iance in the community and quick decompensation into severely unsafe behaviors. Also, Jose historically wants to discharge quickly and internal communications writer is concerned that he could soon become inpatient with remaining on the unit. Currently, patient agrees to remain on this medication and get weekly blood draws; again however he has historically been difficult to track down by his [facility] workers, making med management as an outpatient challenging. Raw Stock Machine Feeder and team will discuss this with his mother and onsite case manager (pt gave verbal permision/LEA for internal communications writer/team to talk with both in front of 2 witnesses, this internal communications writer and nurse Angel). Given this history, there is an effort to titrate clozapine as fabian ckly as tolerated. Conversely, patient has had numerous negative side-effects and is still recovering from severe dystonic reaction from antipsychotic and so there is good reason to titrate slowly in effort to mitigate any potential side effects of clozapine, lest turn patient off to this medication as well. PLAN: On CV (Rescinded 3 day on 07/20) 1. Schizoaffective DO: pt agrees to trial of Clozapine including 1/week blood draws CBC w/ diff? weekly; registered pt in [facility] Titrating clozapine -Clozapine 75 mg q.h.s. (on 07/29/21) -clozapine 12.5mg am; will increase to 25 mg q.a.m starting on 07/31/21 -literature recommends about 25 mg per day increasing dose; if patient tolerates will increase titration rate patient is stable leukocytosis resolved; will monitor patient off 1:1 as has been appropriate (pt has hx of being inappropriate with female staff); low threshold for restarting one-to-one 2. EPS/Dystonia: improving *LOWERED TO ativan 1mg BID (down from TID) continue amantadine 100 mg BID Cogentin 1 mg b.i.d. Propranolol 10 mg t.i.d. DC Lovenox as patient refuses this medication and is actively ambulating on his own on the unit Pt/OT daily Speech eval advanced to solid foods 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 He was on benztropine 1 mg twice a day.? For now, I suggest continuing same dose of benztropine.? ? Increasing dose of medicine for tremor might result in dry mouth dizziness and confusion.? Instead, the antipsychotic with lower chance of similar complication is advised. 3.?SIRS: mildly febrile, elevated WBC, mildly tachy: due to Medication reaction (infectious process r./o): 07/20 pt mildly febrile 100.2, mildly tachy HR 92 with elevated WBC 32540; meets SIRS criteria Low-grade fever?-RESOLVED x 24+? hours Elevated WBCs -?wbc normal range with draw Lactic acidosis -?lactic acid in normal range ? blood draw No clear source of infection identified, patient is not septic CXR negative -NMS R/O UA: wnl other labs wnl covid/influenza/RSV Neg LDH: WNL I spent minutes with the patient and/or on the patient floor today, greater than?50% of which was spent counseling/coordinating care. Reason for contiued inpatient stay Substantial Risk for: rapid decompensation
[2021-07-29 13:00] VITALS: BP 137/64; PULSE 94; TEMP 36.8
[2021-07-29] MEDS: Nicotine Polacrilex 2 MG GUM BUCCAL ×2 (14:18→21:29)
[2021-07-29 19:42] VITALS: BP 138/73; PULSE 87; RESP 18; TEMP 36.6; O2SAT 97
[2021-07-29] MEDS: cloZAPine 25 MG TABLET 75 MG PO (19:44)
[2021-07-30] MEDS: Acetaminophen 325 MG TABLET 650 MG PO (01:05)
[2021-07-30 09:00] VITALS: BP 118/64; PULSE 82; TEMP 36.8; O2SAT 95
[2021-07-30] MEDS: Benztropine Mesylate 1 MG TABLET PO ×2 (09:12→19:38)
[2021-07-30] MEDS: cloZAPine 25 MG TABLET 12.5 MG PO (09:12)
[2021-07-30] MEDS: Propranolol HCL 10 MG TABLET PO ×2 (09:12→19:37)
[2021-07-30] MEDS: LORazepam 1 MG TABLET PO ×2 (09:13→19:37)
[2021-07-30] MEDS: amantadine HCL 100 MG CAPSULE PO ×2 (09:13→19:38)
--- NOTE | 2021-07-30 11:21 | HO.PSYCHPN ---
Subjective Subjective Date of Service: 07/30/21 Reason For Visit: psychosis Subjective Notes: Conditional Voluntary Interim History: Pt lying in bed, he reports sleeping through the night and still having difficulty waking up in the morning. He denies feeling overly sedated with medications. He does not attend groups. He denies SI/HI. He also denies VH/AH but appears internally preoccupied. He denies any side effects with medications. Medication Compliance: Yes Side effects from medications: No Review of Systems Review of Systems No fever, chills or weakness No chest pain, palpitation No shortness of breath or coughing No abdominal pain, nausea or vomiting No urinary symptoms No any rash or wounds Mental Status Exam Mental Status Exam Narrative: Pt is alert and oriented x4; behavior is calm, friendly and cooperative; dressed in hospital pants, shirt; mood is good Affect still somewhat blunted/somnolent; Speech is monotone but less so, more inflection; normal volume and prosody; thought process is organized and goal directed; Thought content is on tx; he denies SI/HI or AVH; no delusional/paranoid thoughts expressed. Patients insight and judgment seem adequate Diagnostics Vital Signs (24Hr): Vital Signs - 24 hr 07/30/21 19:32 Temperature 97.6 F Pulse Rate 97 Respiratory Rate 17 Blood Pressure 138/78 Pulse Oximetry 96 BMI result Body Mass Index 20.6 Labs Results: 07/26/21 08:17 07/22/21 12:34 Imaging Radiology Impressions: ITS Impressions Chest X-Ray 07/21/21 12:22 IMPRESSION: Unremarkable examination. Medications Medications Current Medications Acetaminophen (Acetaminophen 325 Mg Tablet) 650 mg PO Q6H PRN PRN Reason: Pain, Mild (Pain Scale 1-3) Last Admin: 07/30/21 01:05 Dose: 650 mg Documented by: Al Hydroxide/Mg Hydroxide (Magnesium Hydrox/Alum Hydrox 30 Ml Oral.Susp) 30 ml PO Q6H PRN PRN Reason: Heartburn/Nausea Amantadine HCl (Amantadine Hcl 100 Mg Capsule) 100 mg PO BID [facility] Last Admin: 07/31/21 11:09 Dose: 100 mg Documented by: Artificial Tears (Artificial Tears 15 Ml Drops) 2 drop EYE-BOTH Q4H PRN PRN Reason: dry eyes Benztropine Mesylate (Benztropine Mesylate 1 Mg Tablet) 1 mg PO BID [facility] Last Admin: 07/31/21 11:09 Dose: 1 mg Documented by: Clozapine (Clozapine 25 Mg Tablet) 75 mg PO BEDTIME [facility] Last Admin: 07/30/21 19:37 Dose: 75 mg Documented by: Clozapine (Clozapine 25 Mg Tablet) 25 mg PO DAILY [facility] Last Admin: 07/31/21 11:09 Dose: 25 mg Documented by: Docusate Sodium (Docusate Sodium 100 Mg Capsule) 100 mg PO DAILY PRN PRN Reason: Constipation Docusate Sodium (Docusate Sodium 100 Mg Capsule) 100 mg PO BEDTIME [facility] Last Admin: 07/30/21 19:41 Dose: Not Given Documented by: Lorazepam (Lorazepam 1 Mg Tablet) 1 mg PO BID [facility] Last Admin: 07/31/21 11:09 Dose: 1 mg Documented by: Magnesium Hydroxide (Milk Of Magnesia 30 Ml Oral.Susp) 30 ml PO DAILY PRN PRN Reason: Constipation Nicotine (Nicotine 14 Mg Patch.Td24) 14 mg TRANSDERMA DAILY [facility] Last Admin: 07/31/21 11:09 Dose: 14 mg Documented by: Nicotine Polacrilex (Nicotine Polacrilex 2 Mg Gum) 2 mg BUCCAL Q2H PRN PRN Reason: Nicotine Cravings Last Admin: 07/30/21 21:15 Dose: 2 mg Documented by: Pharmacy Consult (Consult Rx Perform Med Rec) 1 each MISCELLANE ONCE PRN PRN Reason: Consult order Polyethylene Glycol (Polyethylene Glycol 3350 17 Gm Powd.Pack) 17 gm PO DAILY PRN PRN Reason: Constipation Propranolol HCl (Propranolol Hcl 10 Mg Tablet) 10 mg PO TID [facility]; Protocol Last Admin: 07/31/21 11:09 Dose: 10 mg Documented by: Trazodone HCl (Trazodone Hcl 50 Mg Tablet) 50 mg PO BEDTIME PRN PRN Reason: Insomnia Last Admin: 07/23/21 21:37 Dose: 50 mg Documented by: Allergies Allergies Allergy/AdvReac Type Severity Reaction Status Date / Time diphenhydramine Allergy Unknown unknown Verified 10/12/20 04:33 [From BENADRYL] haloperidol [From HALDOL] Allergy Unknown unknown Verified 10/12/20 04:33 paliperidone AdvReac Severe dystonia Verified 03/30/21 23:47 Assessment & Plan Assessment & Plan (1) Fever: Status: Resolved Code(s): R50.9 - Fever, unspecified Assessment and Plan: resolved as 07/22/21 (2) Lactic acidosis: Status: Resolved Code(s): E87.2 - Acidosis Assessment and Plan: lactic acid drawn today 07/22/21 normal (3) Leukocytosis: Status: Resolved Code(s): D72.829 - Elevated white blood cell count, unspecified Assessment and Plan: WBC drawn today normal range (4) Schizoaffective disorder, bipolar type: Code(s): F25.0 - Schizoaffective disorder, bipolar type (5) Extrapyramidal symptom: Status: Acute Code(s): R29.818 - Other symptoms and signs involving the nervous system (6) Acute dystonic reaction due to drugs: Status: Acute Code(s): G24.02 - Drug induced acute dystonia Assessment and Plan: IMPRESSION: This is a 26-year-old male with past medical history of schizoaffective disorder who presents from medical floor following treatment for extrapyramidal symptoms and acute dystonic reaction from administered DAS of fluphenazine decaonate of 100mg on 06/14. Pt has hx of multiple inpatient admissions for psychotic sx, taoism preoccupation, command AH, impulsive and unsafe bx, paranoid ideations, and agitation. He was last admitted to [facility] after treatment for suicide attempt by self inflicted neck laceration; there he was started on Fluphenazine and subsequently given DAS.? On admission, pt was severely dystonic, rigid, with cogwheeling b/l arms/legs and parkinsonian tremor, unable to attend to ADL's without assistance, including eating, drinking, tolieting, standing or walking, difficulty talking and with a fixed stare. Zyprexa discontinued. Pt was treated with congentin and ativan; pt had some urinary retention which eventually cleared; ?dystonic/EPS symptoms started to clear when started on Amantadine which was tritrated to 100mg BID. Pt is not back to baseline, but can attend to most ADL's on his own or with only some assistance.? Patient denied any SI/HI/AVH and did not expressed any paranoid/delusional ideations; thought process is linear and goal directed. On admission to patient continues to deny any SI/HI/AVH and denies any delusional/paranoid ideations. He says he knows he's had these symptoms in the past but they are not present now. Pt is ambivalent about restarting antipsychotics given his recent experience of side-effect but also due his limited insight into the extent of his psychiatric illness. Patient says he did not come to the hospital this time for being unsafe but for a medication side-effect. He acknowledges that he could again become delusional but if so that will be his problem to deal with. He was willing to entertain Clozapine but does not think he'll really be available for weekly blood draws. Patient says that his outpt provider Dr. Light told him not to take any antipsychotics for now and he says he wants to wait for Dr. Light recommendations before restarting any medications. Patient however changed his mind and agreed to start clozapine. 07/20 Patient at 1st ambivalent however he decided to have a trial of clozapine and agrees to get blood draws once a week even though it will mildly curb his enthusiastically pursued outdoor adventures.? Assistant Grocery discussed case with Dr. Jerez who agrees with trial of clozapine as it has a very low risk for EPS/dystonia, is good for refractory psychotic illness (patient has failed Abilify, Haldol, Invega, Seroquel, fluphenazine, ziprasidone, Zyprexa (which is only partially helpful and patient reports it causes tremor)) and helpful for suicidality.? Assistant Grocery spoke with patient's outpatient [facility] nurse Camelia ([phone]) who is hopeful this can work and thinks the team can come up with a plan to accommodate patient getting this medication. -Today, pt was mildly febrile 100.2, mildly tachy HR 92 with elevated WBC [id number]; meets SIRS criteria see below for workup; otherwise, remains psychiatrically stable; dystonia/EPS continue to lessen 07/25/21: Patient is stable; fever, leukocytosis, lactic acidosis resolved; patient agrees to restarting clozapine. He is asking about when he can discharge however is currently willing to stay. 07/27/21 patient continues to improve and is clearly walking and talking better; affect is more naturally expressive; some residual stiffness and and tremor but continues to improve. Patient continues to deny any SI, HI or AVH. He also denies any delusional thinking. He is okay with remain on the unit for titration of clozapine. 07/29/21 remains stable; no inappropriate behaviors; good impulse control. Says he is tolerating medications and feels his body continues to improve. In terms of full physical functioning, he feels that he is a 5/5 with 10 being back to his fully normal self. On admission pt has been psychiatrically stable, w/out psychosis or anna; currently he is still benefiting from effects of DAS however, this will likely wear off soon. Patient has agreed to start clozapine. However can take weeks to titrate to a therapeutic dose. When patient is off medications patient has history of quickly becoming disorganized, manic, psychotic and suicidal.? While it is possible that clozapine could quickly take effect and for patient to remain stable, he remains with limited insight, which combined with his chronic pattern of non-adherence with meds makes disposition planning difficult. There has been some discussion whether not patient requires VIBRA for long-term stabilization. As of 07/27/2021 patient is demonstrating good behavioral and impulse control on the unit; he is also demonstrating reasonable insight and judgment in saying that he knows he needs medications and is willing to remain on the unit as clozapine gets titrated. This does not necessarily mean he accepts that he has a psychiatric illness, but it's improvement from past level of insight. Assistant Grocery is cautiously optimistic. However his history is fraught with medication noncompliance in the community and quick decompensation into severely unsafe behaviors. Also, Jose historically wants to discharge quickly and specifications writer is concerned that he could soon become inpatient with remaining on the unit. Currently, patient agrees to remain on this medication and get weekly blood draws; again however he has historically been difficult to track down by his [employer] workers, making med management as an outpatient challenging. Assistant Grocery and team will discuss this with his mother and ed case manager (pt gave verbal permision/LEA for specifications writer/team to talk with both in front of 2 witnesses, this specifications writer and nurse Angel). Given this history, there is an effort to titrate clozapine as quickly as tolerated. Conversely, patient has had numerous negative side-effects and is still recovering from severe dystonic reaction from antipsychotic and so there is good reason to titrate slowly in effort to mitigate any potential side effects of clozapine, lest turn patient off to this medication as well. PLAN: On CV (Rescinded 3 day on 07/20) 1. Schizoaffective DO: pt agrees to trial of Clozapine including 1/week blood draws CBC w/ diff? weekly; registered pt in [facility] Titrating clozapine -Clozapine 75 mg q.h.s. (on 07/29/21) -clozapine 12.5mg am; will increase to 25 mg q.a.m starting on 07/31/21 -literature recommends about 25 mg per day increasing dose; if patient tolerates will increase titration rate patient is stable leukocytosis resolved; will monitor patient off 1:1 as has been appropriate (pt has hx of being inappropriate with female staff); low threshold for restarting one-to-one 2. EPS/Dystonia: improving *LOWERED TO ativan 1mg BID (down from TID) continue amantadine 100 mg BID Cogentin 1 mg b.i.d. Propranolol 10 mg t.i.d. DC Lovenox as patient refuses this medication and is actively ambulating on his own on the unit Pt/OT daily Speech eval advanced to solid foods 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 He was on benztropine 1 mg twice a day.? For now, I suggest continuing same dose of benztropine.? ? Increasing dose of medicine for tremor might result in dry mouth dizziness and confusion.? Instead, the antipsychotic with lower chance of similar complication is advised. 3.?SIRS: mildly febrile, elevated WBC, mildly tachy: due to Medication reaction (infectious process r./o): 07/20 pt mildly febrile 100.2, mildly tachy HR 92 with elevated WBC 44790; meets SIRS criteria Low-grade fever?-RESOLVED x 24+? hours Elevated WBCs -?wbc normal range with draw Lactic acidosis -?lactic acid in normal range ? blood draw No clear source of infection identified, patient is not septic CXR negative -NMS R/O UA: wnl other labs wnl covid/influenza/RSV Neg LDH: WNL 07/30- continue current medications. I spent minutes with the patient and/or on the patient floor today, greater than?50% of which was spent counseling/coordinating care. Reason for contiued inpatient stay Substantial Risk for: inability to function
[2021-07-30 19:32] VITALS: BP 138/78; PULSE 97; RESP 17; TEMP 36.4; O2SAT 96
[2021-07-30] MEDS: cloZAPine 25 MG TABLET 75 MG PO (19:37)
[2021-07-30] MEDS: Nicotine Polacrilex 2 MG GUM BUCCAL (21:15)
--- NOTE | 2021-07-31 | ECG_ITS ---
Test Reason : r/o arrhythmias Blood Pressure : / mmHG Vent. Rate : 103 BPM Atrial Rate : 103 BPM P-R Int : 138 ms QRS Dur : 084 ms QT Int : 336 ms P-R-T Axes : 076 084 036 degrees QTc Int : 440 ms Sinus tachycardia Possible Left atrial enlargement Borderline ECG When compared with ECG of 10-JUL-2021 09:01, Vent. rate has increased BY 52 BPM Nonspecific T wave abnormality now evident in Inferior leads Referred By: Sea Sanders Electronically Signed By:LACHO KERR
--- NOTE | 2021-07-31 09:37 | HO.PSYCHPN ---
Subjective Subjective Date of Service: 07/30/21 Reason For Visit: psychosis Interim History: Pt mostly in bed. He briefly turned to look at junior copywriter but states he is sleepy. He reports doing well. he reports sleeping through the night. He denie SI/HI. He denies VH/AH but appears internally preoccupied. Mostly in bed, taking medications as prescribed. Minimally interacting with peers. No behavioral concerns. Medication Compliance: Yes Review of Systems Review of Systems No fever, chills or weakness No chest pain, palpitation No shortness of breath or coughing No abdominal pain, nausea or vomiting No urinary symptoms No any rash or wounds Mental Status Exam Mental Status Exam Narrative: Pt is alert and oriented x4; behavior is calm, friendly and cooperative; dressed in hospital pants, shirt; mood is good Affect still somewhat blunted/somnolent; Speech is monotone but less so, more inflection; normal volume and prosody; thought process is organized and goal directed; Thought content is on tx; he denies SI/HI or AVH; no delusional/paranoid thoughts expressed. Patients insight and judgment seem adequate Diagnostics Vital Signs (24Hr): Vital Signs - 24 hr 07/30/21 19:32 Temperature 97.6 F Pulse Rate 97 Respiratory Rate 17 Blood Pressure 138/78 Pulse Oximetry 96 BMI result Body Mass Index 20.6 Labs Results: 07/26/21 08:17 07/22/21 12:34 Imaging Radiology Impressions: ITS Impressions Chest X-Ray 07/21/21 12:22 IMPRESSION: Unremarkable examination. Medications Medications Current Medications Acetaminophen (Acetaminophen 325 Mg Tablet) 650 mg PO Q6H PRN PRN Reason: Pain, Mild (Pain Scale 1-3) Last Admin: 07/30/21 01:05 Dose: 650 mg Documented by: Al Hydroxide/Mg Hydroxide (Magnesium Hydrox/Alum Hydrox 30 Ml Oral.Susp) 30 ml PO Q6H PRN PRN Reason: Heartburn/Nausea Amantadine HCl (Amantadine Hcl 100 Mg Capsule) 100 mg PO BID [facility] Last Admin: 07/30/21 19:38 Dose: 100 mg Documented by: Artificial Tears (Artificial Tears 15 Ml Drops) 2 drop EYE-BOTH Q4H PRN PRN Reason: dry eyes Benztropine Mesylate (Benztropine Mesylate 1 Mg Tablet) 1 mg PO BID [facility] Last Admin: 07/30/21 19:38 Dose: 1 mg Documented by: Clozapine (Clozapine 25 Mg Tablet) 75 mg PO BEDTIME [facility] Last Admin: 07/30/21 19:37 Dose: 75 mg Documented by: Clozapine (Clozapine 25 Mg Tablet) 25 mg PO DAILY [facility] Docusate Sodium (Docusate Sodium 100 Mg Capsule) 100 mg PO DAILY PRN PRN Reason: Constipation Docusate Sodium (Docusate Sodium 100 Mg Capsule) 100 mg PO BEDTIME [facility] Last Admin: 07/30/21 19:41 Dose: Not Given Documented by: Lorazepam (Lorazepam 1 Mg Tablet) 1 mg PO BID [facility] Last Admin: 07/30/21 19:37 Dose: 1 mg Documented by: Magnesium Hydroxide (Milk Of Magnesia 30 Ml Oral.Susp) 30 ml PO DAILY PRN PRN Reason: Constipation Nicotine (Nicotine 14 Mg Patch.Td24) 14 mg TRANSDERMA DAILY [facility] Last Admin: 07/30/21 09:19 Dose: Not Given Documented by: Nicotine Polacrilex (Nicotine Polacrilex 2 Mg Gum) 2 mg BUCCAL Q2H PRN PRN Reason: Nicotine Cravings Last Admin: 07/30/21 21:15 Dose: 2 mg Documented by: Pharmacy Consult (Consult Rx Perform Med Rec) 1 each MISCELLANE ONCE PRN PRN Reason: Consult order Polyethylene Glycol (Polyethylene Glycol 3350 17 Gm Powd.Pack) 17 gm PO DAILY PRN PRN Reason: Constipation Propranolol HCl (Propranolol Hcl 10 Mg Tablet) 10 mg PO TID [facility]; Protocol Last Admin: 07/30/21 19:37 Dose: 10 mg Documented by: Trazodone HCl (Trazodone Hcl 50 Mg Tablet) 50 mg PO BEDTIME PRN PRN Reason: Insomnia Last Admin: 07/23/21 21:37 Dose: 50 mg Documented by: Allergies Allergies Allergy/AdvReac Type Severity Reaction Status Date / Time diphenhydramine Allergy Unknown unknown Verified 10/12/20 04:33 [From BENADRYL] haloperidol [From HALDOL] Allergy Unknown unknown Verified 10/12/20 04:33 paliperidone AdvReac Severe dystonia Verified 03/30/21 23:47 Assessment & Plan Assessment & Plan (1) Fever: Status: Resolved Code(s): R50.9 - Fever, unspecified Assessment and Plan: resolved as 07/22/21 (2) Lactic acidosis: Status: Resolved Code(s): E87.2 - Acidosis Assessment and Plan: lactic acid drawn today 07/22/21 normal (3) Leukocytosis: Status: Resolved Code(s): D72.829 - Elevated white blood cell count, unspecified Assessment and Plan: WBC drawn today normal range (4) Schizoaffective disorder, bipolar type: Code(s): F25.0 - Schizoaffective disorder, bipolar type (5) Extrapyramidal symptom: Status: Acute Code(s): R29.818 - Other symptoms and signs involving the nervous system (6) Acute dystonic reaction due to drugs: Status: Acute Code(s): G24.02 - Drug induced acute dystonia Assessment and Plan: IMPRESSION: This is a 26-year-old male with past medical history of schizoaffective disorder who presents from medical floor following treatment for extrapyramidal symptoms and acute dystonic reaction from administered DAS of fluphenazine decaonate of 100mg on 06/14. Pt has hx of multiple inpatient admissions for psychotic sx, mandaen preoccupation, command AH, impulsive and unsafe bx, paranoid ideations, and agitation. He was last admitted to [facility] after treatment for suicide attempt by self inflicted neck laceration; there he was started on Fluphenazine and subsequently given DAS.? On admission, pt was severely dystonic, rigid, with cogwheeling b/l arms/legs and parkinsonian tremor, unable to attend to ADL's without assistance, including eating, drinking, tolieting, standing or walking, difficulty talking and with a fixed stare. Zyprexa discontinued. Pt was treated with congentin and ativan; pt had some urinary retention which eventually cleared; ?dystonic/EPS symptoms started to clear when started on Amantadine which was tritrated to 100mg BID. Pt is not back to baseline, but can attend to most ADL's on his own or with only some assistance.? Patient denied any SI/HI/AVH and did not expressed any paranoid/delusional ideations; thought process is linear and goal directed. On admission to patient continues to deny any SI/HI/AVH and denies any delusional/paranoid ideations. He says he knows he's had these symptoms in the past but they are not present now. Pt is ambivalent about restarting antipsychotics given his recent experience of side-effect but also due his limited insight into the extent of his psychiatric illness. Patient says he did not come to the hospital this time for being unsafe but for a medication side-effect. He acknowledges that he could again become delusional but if so that will be his problem to deal with. He was willing to entertain Clozapine but does not think he'll really be available for weekly blood draws. Patient says that his outpt provider Dr. Light told him not to take any antipsychotics for now and he says he wants to wait for Dr. Light recommendations before restarting any medications. Patient however changed his mind and agreed to start clozapine. 07/20 Patient at 1st ambivalent however he decided to have a trial of clozapine and agrees to get blood draws once a week even though it will mildly curb his enthusiastically pursued outdoor adventures.? Chief Clerk Shelter discussed case with Dr. Jerez who agrees with trial of clozapine as it has a very low risk for EPS/dystonia, is good for refractory psychotic illness (patient has failed Abilify, Haldol, Invega, Seroquel, fluphenazine, ziprasidone, Zyprexa (which is only partially helpful and patient reports it causes tremor)) and helpful for suicidality.? Chief Clerk Shelter spoke with patient's outpatient [facility] nurse Camelia ([phone]) who is hopeful this can work and thinks the team can come up with a plan to accommodate patient getting this medication. -Today, pt was mildly febrile 100.2, mildly tachy HR 92 with elevated WBC 71519; meets SIRS criteria see below for workup; otherwise, remains psychiatrically stable; dystonia/EPS continue to lessen 07/25/21: Patient is stable; fever, leukocytosis, lactic acidosis resolved; patient agrees to restarting clozapine. He is asking about when he can discharge however is currently willing to stay. 07/27/21 patient continues to improve and is clearly walking and talking better; affect is more naturally expressive; some residual stiffness and and tremor but continues to improve. Patient continues to deny any SI, HI or AVH. He also denies any delusional thinking. He is okay with remain on the unit for titration of clozapine. 07/29/21 remains stable; no inappropriate behaviors; good impulse control. Says he is tolerating medications and feels his body continues to improve. In terms of full physical functioning, he feels that he is a 5/5 with 10 being back to his fully normal self. On admission pt has been psychiatrically stable, w/out psychosis or anna; currently he is still benefiting from effects of DAS however, this will likely wear off soon. Patient has agreed to start clozapine. However can take weeks to titrate to a therapeutic dose. When patient is off medications patient has history of quickly becoming disorganized, manic, psychotic and suicidal.? While it is possible that clozapine could quickly take effect and for patient to remain stable, he remains with limited insight, which combined with his chronic pattern of non-adherence with meds makes disposition planning difficult. There has been some discussion whether not patient requires VIBRA for long-term stabilization. As of 07/27/2021 patient is demonstrating good behavioral and impulse control on the unit; he is also demonstrating reasonable insight and judgment in saying that he knows he needs medications and is willing to remain on the unit as clozapine gets titrated. This does not necessarily mean he accepts that he has a psychiatric illness, but it's improvement from past level of insight. Chief Clerk Shelter is cautiously optimistic. However his history is fraught with medication noncompliance in the community and quick decompensation into severely unsafe behaviors. Also, Jose historically wants to discharge quickly and junior copywriter is concerned that he could soon become inpatient with remaining on the unit. Currently, patient agrees to remain on this medication and get weekly blood draws; again however he has historically been difficult to track down by his [employer] workers, making med management as an outpatient challenging. Chief Clerk Shelter and team will discuss this with his mother and medical case worker (pt gave verbal permision/LEA for junior copywriter/team to talk with both in front of 2 witnesses, this junior copywriter and nurse Angel). Given this history, there is an effort to titrate clozapine as quickly as tolerated. Conversely, patient has had numerous negative side-effects and is still recovering from severe dystonic reaction from antipsychotic and so there is good reason to titrate slowly in effort to mitigate any potential side effects of clozapine, lest turn patient off to this medication as well. PLAN: On CV (Rescinded 3 day on 07/20) 1. Schizoaffective DO: pt agrees to trial of Clozapine including 1/week blood draws CBC w/ diff? weekly; registered pt in [facility] Titrating clozapine -Clozapine 75 mg q.h.s. (on 07/29/21) -clozapine 12.5mg am; will increase to 25 mg q.a.m starting on 07/31/21 -literature recommends about 25 mg per day increasing dose; if patient tolerates will increase titration rate patient is stable leukocytosis resolved; will monitor patient off 1:1 as has been appropriate (pt has hx of being inappropriate with female staff); low threshold for restarting one-to-one 2. EPS/Dystonia: improving *LOWERED TO ativan 1mg BID (down from TID) continue amantadine 100 mg BID Cogentin 1 mg b.i.d. Propranolol 10 mg t.i.d. DC Lovenox as patient refuses this medication and is actively ambulating on his own on the unit Pt/OT daily Speech eval advanced to solid foods 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 He was on benztropine 1 mg twice a day.? For now, I suggest continuing same dose of benztropine.? ? Increasing dose of medicine for tremor might result in dry mouth dizziness and confusion.? Instead, the antipsychotic with lower chance of similar complication is advised. 3.?SIRS: mildly febrile, elevated WBC, mildly tachy: due to Medication reaction (infectious process r./o): 07/20 pt mildly febrile 100.2, mildly tachy HR 92 with elevated WBC 31638; meets SIRS criteria Low-grade fever?-RESOLVED x 24+? hours Elevated WBCs -?wbc normal range with draw Lactic acidosis -?lactic acid in normal range ? blood draw No clear source of infection identified, patient is not septic CXR negative -NMS R/O UA: wnl other labs wnl covid/influenza/RSV Neg LDH: WNL 07/30- continue current medications. I spent minutes with the patient and/or on the patient floor today, greater than?50% of which was spent counseling/coordinating care. Reason for contiued inpatient stay Substantial Risk for: inability to function
[2021-07-31 11:00] VITALS: BP 120/61; PULSE 104; TEMP 36.3; O2SAT 96
[2021-07-31] MEDS: Nicotine 14 MG PATCH.TD24 TRANSDERMA (11:09)
[2021-07-31] MEDS: Benztropine Mesylate 1 MG TABLET PO ×2 (11:09→21:16)
[2021-07-31] MEDS: Propranolol HCL 10 MG TABLET PO ×3 (11:09→21:17)
[2021-07-31] MEDS: cloZAPine 25 MG TABLET PO ×2 (11:09→21:16)
[2021-07-31] MEDS: LORazepam 1 MG TABLET PO ×3 (11:09→23:42)
[2021-07-31] MEDS: amantadine HCL 100 MG CAPSULE PO ×2 (11:09→21:16)
[2021-07-31 16:07] VITALS: BP 140/85; PULSE 105; RESP 18; TEMP 37.2; O2SAT 98
[2021-07-31] MEDS: Nicotine Polacrilex 2 MG GUM BUCCAL ×3 (16:27→22:36)
[2021-07-31 18:00] VITALS: BP 104/64; PULSE 93; RESP 18; TEMP 36.3; O2SAT 100
[2021-07-31] MEDS: Docusate Sodium 100 MG CAPSULE PO (21:16)
[2021-07-31] MEDS: cloZAPine 25 MG TABLET 75 MG PO (21:17)
[2021-07-31 23:19] VITALS: BP 136/81; PULSE 89; RESP 17; O2SAT 99
--- NOTE | 2021-08-01 | ECG_ITS ---
Test Reason : chest pain Blood Pressure : / mmHG Vent. Rate : 110 BPM Atrial Rate : 110 BPM P-R Int : 134 ms QRS Dur : 076 ms QT Int : 320 ms P-R-T Axes : 064 084 039 degrees QTc Int : 433 ms Artifact in tracing Sinus tachycardia Likely normal EKG No significant changes when compared with the previous EKG of 31 jul 2021 Referred By: Donald Cobb Electronically Signed By:LACHO KERR
[2021-08-01 00:11] LABS: Troponin-I High Sensitivity < 3.5 ng/L (<3.5-35.0)
[2021-08-01 02:17] LABS: Basophils Absolute Auto 0.1 X10*3/uL (0.0-0.2); Basophils Percent Auto 0.7 % (0-2); Eosinophils Absolute Auto 0.3 X10*3/uL (0.0-0.4); Hematocrit 41.1 % (42.0-52.0); Hemoglobin 14.3 g/dl (14.0-18.0); Imm Gran Abs Auto 0.05 X10*3/uL (0.00-0.03); Imm Gran Pct Auto 0.7 % (0.0-0.4); Lymphocytes Absolute Auto 1.9 X10*3/uL (1.2-4.9); MANUAL DIFF FLAG NO; Mean Corpuscular HGB Conc 34.8 g/dl (31.0-36.0); Mean Corpuscular Hemoglobin 31.8 pg (27.0-33.0); Mean Corpuscular Volume 91.5 fL (80.0-98.0); Mean Platelet Volume 9.3 fL (9.4-12.4); Monocytes Absolute Auto 0.7 X10*3/uL (0.1-1.2); Monocytes Percent Auto 10.8 % (2-11); Neutrophils Absolute Auto 3.8 x10*3/uL (2.0-8.3); Neutrophils Percent Auto 55.8 % (45-73); Platelet Count 187 X10*3/uL (160-400); Red Blood Count 4.49 X10*6/uL (4.60-5.80); Red Cell Distribution Width 12.1 % (11.0-16.0); White Blood Count 6.8 X10*3/uL (4.8-10.8)
[2021-08-01 02:46] LABS: Troponin-I High Sensitivity < 3.5 ng/L (<3.5-35.0)
--- NOTE | 2021-08-01 03:09 | PC.NURSE ---
Patient up at 2300 c/o chest pain, vitals within normal limits. Patient was having slight tremors of the hands as well. Ekg done which was requested to be repeated by the hospitalist Dr. Sanders. 2nd Ekg was normal sinus rhythm. Troponins drawn which were both <3.5. Patient given 1mg of ativan and was able to fall asleep until 3:15 am when he woke and asked for a sandwich.
[2021-08-01] MEDS: amantadine HCL 100 MG CAPSULE PO ×2 (08:59→20:55)
[2021-08-01] MEDS: LORazepam 1 MG TABLET PO ×2 (08:59→22:38)
[2021-08-01] MEDS: Propranolol HCL 10 MG TABLET PO (08:59)
[2021-08-01] MEDS: Benztropine Mesylate 1 MG TABLET PO ×2 (09:00→20:56)
[2021-08-01 09:22] VITALS: BP 125/60; PULSE 93; TEMP 36.6
[2021-08-01] MEDS: Nicotine 14 MG PATCH.TD24 TRANSDERMA (09:24)
[2021-08-01] MEDS: Nicotine Polacrilex 2 MG GUM BUCCAL ×4 (11:30→22:59)
--- NOTE | 2021-08-01 11:48 | PC.NURSE ---
During administration of am medications , patient took a couple pills from med cup and appeared to manipulate them into his front lip and gum. Patient then took remaining pills with water. Mouth checks were done. pt opened mouth and stuck out tongue. T/W left the room to pass medication. Due to pt's suspicious behavior T/W returned to the room and found him in the bathroom with face in the sink and water running. T/W asked pt if he was ok and he said yes. T/W asked him what he was doing? Patient said nothing, just rinsing his mouth , in an angry tone. T/W pointed out that he hadn't finished breakfast and why would he rinse. T/W then asked if he was getting rid of medications and stressed the importance of them to work towards discharge. The pt became angry swearing at T/W , Get the fu-k out of here, you don't need to be riding me! Pt was given further education, but continued to be angry. Pt wouldn't look at T/W and stayed in the bathroom with face in the sink. T/W left the situation to prevent further angering the pt and reported to .
--- NOTE | 2021-08-01 16:57 | HO.PSYCHPN ---
Subjective Subjective Date of Service: 08/01/21 Reason For Visit: psychosis Interim History: Overnight, patient complained of palpitations and chest pain; he was mildly tachycardic. Troponins negative. EKG read by [facility] Director. Cnc Machinist discussed with on-call BRICKLAYER PAVING BRICK who reports that case was discussed with engineering group leader, Dr. Simone Odom who reviewed ekg and reported that findings were benign and not need for any follow up. This morning, nursing staff reported to this medical underwriter that patient put the medication between his lip and gum instead of swallowing it; he denied this to the nurse but was then seen in the bathroom washing out his mouth. Patient remained adamant that he was taking his medication, cursing at nursing staff for challenging him on this. When medical underwriter met with patient he explained to medical underwriter that his heart stops beating for a few minutes and then he has to wake himself up to make it beat again. Patient demonstrated for medical underwriter what he does to make his heart started beating again; he says this happens a few times per hour during the night. Cnc Machinist empathized with this experience but explained/provided education about cardiovascular system and that his heart does not stop beating. Patient accepted this however he wanted to see if he could get off as many medications as possible to which medical underwriter agreed; he reiterated that he is taking his medications and that nursing staff was mistaken about him cheeking his medications (of note patient has a history of cheeking medications during past admissions). Otherwise patient says he is feeling great. He expressed how deeply happy he is that he has gotten better; patient became tearful describing how scared he was while dystonic and fearful that he would never regain full function. Family meeting was had with Cnc Machinist, outreach and education social worker Miracle, patient's out reach worker John, patient's mother Bernardo who all agreed that while patient is clearly doing much better and is demonstrating appropriate behaviors, without overt symptoms, that he is at high risk for quickly stopping his medications upon discharge and quickly becoming dangerous. This has been the pattern. All agreed patient needs extended time for clozapine to become therapeutic and for him to develop adequate insight that he needs to remain on medication in order to stay safe. Patient joined meeting and this was presented to. Patient at 1st said he was considering signing a 3 day notice saying that he feels much better. However he was open to remaining on the unit for continued titration of clozapine and a tapering off of other medications such as amantadine that have been used to treat his dystonia. Mental Status Exam Mental Status Exam Narrative: ?Pt is alert and oriented x4; behavior is calm, friendly and cooperative; dressed in hospital pants, shirt; mood is great Affect congruent and naturally expressive; eye contact appropriate; Speech is a little monotone but now also with more inflection; normal volume and prosody; thought process is organized and goal directed though concrete; Thought content is on tx and discharge; he denies SI/HI or AVH; no delusional/paranoid thoughts expressed. Patients insight and judgment are impaired in that while patient does some insight, it is limited regarding his understanding of his psychiatric illness and his need for medication. Diagnostics Vital Signs (24Hr): Vital Signs - 24 hr 07/31/21 18:00 07/31/21 23:19 08/01/21 09:22 Temperature 97.3 F 97.8 F Pulse Rate 93 89 93 Respiratory Rate 18 17 Blood Pressure 104/64 136/81 125/60 Pulse Oximetry 100 99 BMI result Body Mass Index 20.6 Labs Results: 08/01/21 02:12 07/22/21 12:34 Labs: Laboratory Results - last 48 hr 07/31/21 08/01/21 08/01/21 23:47 02:12 02:12 WBC 6.8 RBC 4.49 L Hgb 14.3 Hct 41.1 L MCV 91.5 MCH 31.8 MCHC 34.8 RDW 12.1 Plt Count 187 MPV 9.3 L Immature Gran % (Auto) 0.7 H Neut % (Auto) 55.8 Lymph % (Auto) 28.0 [place] % (Auto) 10.8 Eos % (Auto) 4.0 Baso % (Auto) 0.7 Lymph # (Auto) 1.9 [place] # (Auto) 0.7 Eos # (Auto) 0.3 Baso # (Auto) 0.1 Abs Immat Gran (auto) 0.05 H Absolute Neuts (auto) 3.8 Absolute Nucleated RBC 0.000 Nucleated RBC % (auto) 0.0 Troponin I High Sens < 3.5 < 3.5 Imaging Radiology Impressions: ITS Impressions Chest X-Ray 07/21/21 12:22 IMPRESSION: Unremarkable examination. Medications Medications Current Medications Acetaminophen (Acetaminophen 325 Mg Tablet) 650 mg PO Q6H PRN PRN Reason: Pain, Mild (Pain Scale 1-3) Last Admin: 07/30/21 01:05 Dose: 650 mg Documented by: Al Hydroxide/Mg Hydroxide (Magnesium Hydrox/Alum Hydrox 30 Ml Oral.Susp) 30 ml PO Q6H PRN PRN Reason: Heartburn/Nausea Amantadine HCl (Amantadine Hcl 100 Mg Capsule) 100 mg PO BID [facility] Last Admin: 08/01/21 08:59 Dose: 100 mg Documented by: Artificial Tears (Artificial Tears 15 Ml Drops) 2 drop EYE-BOTH Q4H PRN PRN Reason: dry eyes Benztropine Mesylate (Benztropine Mesylate 1 Mg Tablet) 1 mg PO BID [facility] Last Admin: 08/01/21 09:00 Dose: 1 mg Documented by: Clozapine (Clozapine 25 Mg Tablet) 25 mg PO DAILY [facility] Last Admin: 07/31/21 21:16 Dose: 25 mg Documented by: Clozapine (Clozapine 100 Mg Tablet) 100 mg PO BEDTIME [facility] Docusate Sodium (Docusate Sodium 100 Mg Capsule) 100 mg PO DAILY PRN PRN Reason: Constipation Docusate Sodium (Docusate Sodium 100 Mg Capsule) 100 mg PO BEDTIME PRN PRN Reason: constipation Lorazepam (Lorazepam 1 Mg Tablet) 1 mg PO BID PRN PRN Reason: anxiety/stiffness Magnesium Hydroxide (Milk Of Magnesia 30 Ml Oral.Susp) 30 ml PO DAILY PRN PRN Reason: Constipation Nicotine (Nicotine 14 Mg Patch.Td24) 14 mg TRANSDERMA DAILY [facility] Last Admin: 08/01/21 09:24 Dose: 14 mg Documented by: Nicotine Polacrilex (Nicotine Polacrilex 2 Mg Gum) 2 mg BUCCAL Q2H PRN PRN Reason: Nicotine Cravings Last Admin: 08/01/21 14:04 Dose: 2 mg Documented by: Pharmacy Consult (Consult Rx Perform Med Rec) 1 each MISCELLANE ONCE PRN PRN Reason: Consult order Polyethylene Glycol (Polyethylene Glycol 3350 17 Gm Powd.Pack) 17 gm PO DAILY PRN PRN Reason: Constipation Propranolol HCl (Propranolol Hcl 10 Mg Tablet) 10 mg PO TID PRN; Protocol PRN Reason: Tremor Trazodone HCl (Trazodone Hcl 50 Mg Tablet) 50 mg PO BEDTIME PRN PRN Reason: Insomnia Last Admin: 07/23/21 21:37 Dose: 50 mg Documented by: Allergies Allergies Allergy/AdvReac Type Severity Reaction Status Date / Time diphenhydramine Allergy Unknown unknown Verified 10/12/20 04:33 [From BENADRYL] haloperidol [From HALDOL] Allergy Unknown unknown Verified 10/12/20 04:33 paliperidone AdvReac Severe dystonia Verified 03/30/21 23:47 Assessment & Plan Assessment & Plan (1) Fever: Status: Resolved Code(s): R50.9 - Fever, unspecified Assessment and Plan: resolved as 07/22/21 (2) Lactic acidosis: Status: Resolved Code(s): E87.2 - Acidosis Assessment and Plan: lactic acid drawn today 07/22/21 normal (3) Leukocytosis: Status: Resolved Code(s): D72.829 - Elevated white blood cell count, unspecified Assessment and Plan: WBC drawn today normal range (4) Schizoaffective disorder, bipolar type: Code(s): F25.0 - Schizoaffective disorder, bipolar type (5) Extrapyramidal symptom: Status: Acute Code(s): R29.818 - Other symptoms and signs involving the nervous system (6) Acute dystonic reaction due to drugs: Status: Acute Code(s): G24.02 - Drug induced acute dystonia Assessment and Plan: IMPRESSION: This is a 26-year-old male with past medical history of schizoaffective disorder who presents from medical floor following treatment for extrapyramidal symptoms and acute dystonic reaction from administered DAS of fluphenazine decaonate of 100mg on 06/14. Pt has hx of multiple inpatient admissions for psychotic sx, yazidi preoccupation, command AH, impulsive and unsafe bx, paranoid ideations, and agitation. He was last admitted to [facility] after treatment for suicide attempt by self inflicted neck laceration; there he was started on Fluphenazine and subsequently given DAS.? On admission, pt was severely dystonic, rigid, with cogwheeling b/l arms/legs and parkinsonian tremor, unable to attend to ADL's without assistance, including eating, drinking, tolieting, standing or walking, difficulty talking and with a fixed stare. Zyprexa discontinued. Pt was treated with congentin and ativan; pt had some urinary retention which eventually cleared; ?dystonic/EPS symptoms started to clear when started on Amantadine which was tritrated to 100mg BID. Pt is not back to baseline, but can attend to most ADL's on his own or with only some assistance.? Patient denied any SI/HI/AVH and did not expressed any paranoid/delusional ideations; thought process is linear and goal directed. On admission to patient continues to deny any SI/HI/AVH and denies any delusional/paranoid ideations. He says he knows he's had these symptoms in the past but they are not present now. Pt is ambivalent about restarting antipsychotics given his recent experience of side-effect but also due his limited insight into the extent of his psychiatric illness. Patient says he did not come to the hospital this time for being unsafe but for a medication side-effect. He acknowledges that he could again become delusional but if so that will be his problem to deal with. He was willing to entertain Clozapine but does not think he'll really be available for weekly blood draws. Patient says that his outpt provider Dr. Light told him not to take any antipsychotics for now and he says he wants to wait for Dr. Light recommendations before restarting any medications. Patient however changed his mind and agreed to start clozapine. 07/20 Patient at 1st ambivalent however he decided to have a trial of clozapine and agrees to get blood draws once a week even though it will mildly curb his enthusiastically pursued outdoor adventures.? Cnc Machinist discussed case with Dr. Jerez who agrees with trial of clozapine as it has a very low risk for EPS/dystonia, is good for refractory psychotic illness (patient has failed Abilify, Haldol, Invega, Seroquel, fluphenazine, ziprasidone, Zyprexa (which is only partially helpful and patient reports it causes tremor)) and helpful for suicidality.? Cnc Machinist spoke with patient's outpatient [facility] nurse Camelia ([phone]) who is hopeful this can work and thinks the team can come up with a plan to accommodate patient getting this medication. -Today, pt was mildly febrile 100.2, mildly tachy HR 92 with elevated WBC 37395; meets SIRS criteria see below for workup; otherwise, remains psychiatrically stable; dystonia/EPS continue to lessen 07/25/21: Patient is stable; fever, leukocytosis, lactic acidosis resolved; patient agrees to restarting clozapine. He is asking about when he can discharge however is currently willing to stay. 07/27/21 patient continues to improve and is clearly walking and talking better; affect is more naturally expressive; some residual stiffness and and tremor but continues to improve. Patient continues to deny any SI, HI or AVH. He also denies any delusional thinking. He is okay with remain on the unit for titration of clozapine. 07/29/21 remains stable; no inappropriate behaviors; good impulse control. Says he is tolerating medications and feels his body continues to improve. In terms of full physical functioning, he feels that he is a 5/5 with 10 being back to his fully normal self. On admission pt has been psychiatrically stable, w/out psychosis or anna; currently he is still benefiting from effects of DAS however, this will likely wear off soon. Patient has agreed to start clozapine. However can take weeks to titrate to a therapeutic dose. When patient is off medications patient has history of quickly becoming disorganized, manic, psychotic and suicidal.? While it is possible that clozapine could quickly take effect and for patient to remain stable, he remains with limited insight, which combined with his chronic pattern of non-adherence with meds makes disposition planning difficult. There has been some discussion whether not patient requires VIBRA for long-term stabilization. As of 07/27/2021 patient is demonstrating good behavioral and impulse control on the unit; he is also demonstrating reasonable insight and judgment in saying that he knows he needs medications and is willing to remain on the unit as clozapine gets titrated. This does not necessarily mean he accepts that he has a psychiatric illness, but it's improvement from past level of insight. Cnc Machinist is cautiously optimistic. However his history is fraught with medication noncompliance in the community and quick decompensation into severely unsafe behaviors. Also, Jose historically wants to discharge quickly and medical underwriter is concerned that he could soon become inpatient with remaining on the unit. Currently, patient agrees to remain on this medication and get weekly blood draws; again however he has historically been difficult to track down by his [facility] workers, making med management as an outpatient challenging. Cnc Machinist and team will discuss this with his mother and mental health case manager (pt gave verbal permision/LEA for medical underwriter/team to talk with both in front of 2 witnesses, this medical underwriter and nurse Jeanne). Given this history, there is an effort to titrate clozapine as quickly as tolerated. Conversely, patient has had numerous negative side-effects and is still recovering from severe dystonic reaction from antipsychotic and so there is good reason to titrate slowly in effort to mitigate any potential side effects of clozapine, lest turn patient off to this medication as well. 07/31/21 -patient is nearly full back to his normal physical self; he has some delusional thoughts about his body however he otherwise denies SI, HI, AVH and does not overtly expressed any delusional thinking. That said it is concerning that nursing staff feels patient may be cheeking his clozapine medication; patient was highly defensive about the topic, cursing at nursing staff saying get the F- out of my room (During past his admission, patient exhibited similar behavior, frequently trying to avoid/cheek is medication). -Family meeting with patient's mother, outreach and education social worker and out reach mental health case manager. All agree that while patient is doing much better he remains with only limited insight into his psychiatric illness and need for medication and there is deep concerned that his understanding is superficial. Patient has a long pattern of discontinuing medications as soon as he is discharged and quickly becoming dangerous. Cnc Machinist, outreach and education social worker and patient's mother and out reach worker all agree that patient needs to have extended time on clozapine at a therapeutic dose in order for his insight to deepen to a point that he willingly remains on medications as an outpatient and that discharge at this time would be unsafe. At this point patient remains willing to stay on the unit for clozapine to continue titrating and other meds to taper off and be discontinued; patient agrees that it is important to see that he remains without dystonia/EPS symptoms as amantadine and possibly Cogentin are discontinued. While it is possible that clozapine will prove itself effective quickly, it is unlikely and medical underwriter is concerned it may take longer than patient is willing to endure. There is also the risk that clozapine, even at high doses will prove itself ineffective and another med trial will be necessary. The team, patient's out reach worker and family agree that it might be necessary for patient to have an extended inpatient stay at a facility such as [facility] in order to help patient get to a point where he can be safe in the community. -will continue to monitor patient and assess his insight and judgment. PLAN: On CV (Rescinded 3 day on 07/20) 1. Schizoaffective DO: pt agrees to trial of Clozapine including 1/week blood draws CBC w/ diff? weekly; registered pt in [facility] Titrating clozapine -Clozapine 100 mg q.h.s. (on 08/01/21) -clozapine 25 mg q.a.m starting on 07/31/21 -literature recommends about 25 mg per day increasing dose; if patient tolerates will increase titration rate patient is stable leukocytosis resolved; will monitor patient off 1:1 as has been appropriate (pt has hx of being inappropriate with female staff); low threshold for restarting one-to-one 2. EPS/Dystonia: improving *LOWERED TO ativan 1mg BID (down from TID) continue amantadine 100 mg BID Cogentin 1 mg b.i.d. Propranolol 10 mg t.i.d. DC Lovenox as patient refuses this medication and is actively ambulating on his own on the unit Pt/OT daily Speech eval advanced to solid foods 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 He was on benztropine 1 mg twice a day.? For now, I suggest continuing same dose of benztropine.? ? Increasing dose of medicine for tremor might result in dry mouth dizziness and confusion.? Instead, the antipsychotic with lower chance of similar complication is advised. 3.?SIRS: mildly febrile, elevated WBC, mildly tachy: due to Medication reaction (infectious process r./o): 07/20 pt mildly febrile 100.2, mildly tachy HR 92 with elevated WBC 42181; meets SIRS criteria Low-grade fever?-RESOLVED x 24+? hours Elevated WBCs -?wbc normal range with draw Lactic acidosis -?lactic acid in normal range ? blood draw No clear source of infection identified, patient is not septic CXR negative -NMS R/O UA: wnl other labs wnl covid/influenza/RSV Neg LDH: WNL 07/30- continue current medications. I spent minutes with the patient and/or on the patient floor today, greater than?50% of which was spent counseling/coordinating care. Reason for contiued inpatient stay Substantial Risk for: rapid decompensation
[2021-08-01 18:00] VITALS: BP 132/70; PULSE 107; TEMP 37; O2SAT 95
[2021-08-01] MEDS: traZODone HCL 50 MG TABLET PO (20:56)
[2021-08-01] MEDS: cloZAPine 100 MG TABLET PO (20:56)
[2021-08-01] MEDS: Acetaminophen 325 MG TABLET 650 MG PO (20:56)
--- NOTE | 2021-08-01 22:44 | PC.NURSE ---
2144 Isaias was complaining of chest pain and irregular rate feels like my heart is stopping I want to go to the ER Call placed to DR. Light order for EKG and Hospitalist consult. Hospitalist ordered EKG and troponin levels and order to give Ativan 1mg per PRN order given at 22:35 His Vitals at 21:45 were 119/59 119 sat 96% EKG done sent to hospitalist Pt is reassured asked him to rest Troponin is pending
[2021-08-01 22:45] LABS: Troponin-I High Sensitivity < 3.5 ng/L (<3.5-35.0)
--- NOTE | 2021-08-01 23:00 | PC.NURSE ---
Pt has episodes of high anxiety with chest pain and increased heart rate for the last 3 days occurring at night. EKGs have been normal sinus rhythm and troponin levels have been 3.5. Pt taking 1mg of Ativan with good effect. Nursing cemetery workers supervisor, hospitalist and television news anchor doctor contacted. Pt may need an anti anxiety medication for the night time. Patient mentioned it may be his night meds giving him increased heart rate and chest pain {cloapine].
--- NOTE | 2021-08-01 23:05 | PC.NURSE ---
2299 Isaias said he feels better troponin level is 3.5 within normal asked for nicotine gum was instructed that it could cause chest discomfort but insisted on taking it.
[2021-08-02] MEDS: Benztropine Mesylate 1 MG TABLET PO (09:33)
[2021-08-02] MEDS: amantadine HCL 100 MG CAPSULE PO (09:33)
[2021-08-02] MEDS: cloZAPine 25 MG TABLET PO (09:33)
[2021-08-02] MEDS: Nicotine 14 MG PATCH.TD24 TRANSDERMA (09:33)
[2021-08-02 12:02] VITALS: BP 119/56; PULSE 115; RESP 16; TEMP 36.9; O2SAT 97
[2021-08-02] MEDS: Nicotine Polacrilex 2 MG GUM BUCCAL ×2 (17:09→21:17)
--- NOTE | 2021-08-02 17:28 | P.PNPSI_ITS ---
Subjective Subjective Date of Service: 08/02/21 Reason For Visit: psychosis Interim History: Overnight patient had reported feeling chest pain and palpitations. EKG within normal limits. Hospitalist consulted who reported the patient was stable and no need for further assessment. Patient has a history of panic and talking with patient this morning this is what it sounds to be. He said he is feeling better today. He says he wonders if it is the medication that is making him have these experiences; grant writer thinks this unlikely but patient agrees to take clonazepam scheduled in the evening which she has taken in the past and finds helpful. Otherwise patient is feels that his body is working well and that dystonic reaction seems to be resolved. Field Services Analyst discussed how his medications that were treating dystonia/EPS are being tapered down to which he was grateful. He agrees to continue titration of clozapine. Mental Status Exam Mental Status Exam Narrative: ?Pt is alert and oriented x4; behavior is calm, friendly and cooperative; dressed in hospital pants, T-shirt; mood is good Affect congruent and naturally expressive; eye contact appropriate; Speech with normalinflection; normal volume and prosody; thought process is organized and goal directed though concrete; Thought content is on tx and discharge; he denies SI/HI or AVH; no delusional/paranoid thoughts expressed. Patients insight and judgment are impaired in that while patient does some insight, it is limited regarding his understanding of his psychiatric illness and his need for medication. Diagnostics Vital Signs (24Hr): Vital Signs - 24 hr 08/01/21 18:00 08/02/21 12:02 Temperature 98.6 F 98.4 F Pulse Rate 107 H 115 H Respiratory Rate 16 Blood Pressure 132/70 119/56 L Pulse Oximetry 95 97 BMI result Body Mass Index 20.6 Labs Results: 08/01/21 02:12 07/22/21 12:34 Labs: Laboratory Results - last 48 hr 07/31/21 08/01/21 08/01/21 23:47 02:12 02:12 WBC 6.8 RBC 4.49 L Hgb 14.3 Hct 41.1 L MCV 91.5 MCH 31.8 MCHC 34.8 RDW 12.1 Plt Count 187 MPV 9.3 L Immature Gran % (Auto) 0.7 H Neut % (Auto) 55.8 Lymph % (Auto) 28.0 [place] % (Auto) 10.8 Eos % (Auto) 4.0 Baso % (Auto) 0.7 Lymph # (Auto) 1.9 [place] # (Auto) 0.7 Eos # (Auto) 0.3 Baso # (Auto) 0.1 Abs Immat Gran (auto) 0.05 H Absolute Neuts (auto) 3.8 Absolute Nucleated RBC 0.000 Nucleated RBC % (auto) 0.0 Troponin I High Sens < 3.5 < 3.5 08/01/21 22:20 WBC RBC Hgb Hct MCV MCH MCHC RDW Plt Count MPV Immature Gran % (Auto) Neut % (Auto) Lymph % (Auto) [place] % (Auto) Eos % (Auto) Baso % (Auto) Lymph # (Auto) [place] # (Auto) Eos # (Auto) Baso # (Auto) Abs Immat Gran (auto) Absolute Neuts (auto) Absolute Nucleated RBC Nucleated RBC % (auto) Troponin I High Sens < 3.5 Imaging Radiology Impressions: ITS Impressions Chest X-Ray 07/21/21 12:22 IMPRESSION: Unremarkable examination. Medications Medications Current Medications Acetaminophen (Acetaminophen 325 Mg Tablet) 650 mg PO Q6H PRN PRN Reason: Pain, Mild (Pain Scale 1-3) Last Admin: 08/01/21 20:56 Dose: 650 mg Documented by: Al Hydroxide/Mg Hydroxide (Magnesium Hydrox/Alum Hydrox 30 Ml Oral.Susp) 30 ml PO Q6H PRN PRN Reason: Heartburn/Nausea Amantadine HCl (Amantadine Hcl 100 Mg Capsule) 100 mg PO BEDTIME EUGENIA Amantadine HCl (Amantadine Hcl 100 Mg Capsule) 50 mg PO DAILY [facility] Artificial Tears (Artificial Tears 15 Ml Drops) 2 drop EYE-BOTH Q4H PRN PRN Reason: dry eyes Benztropine Mesylate (Benztropine Mesylate 1 Mg Tablet) 1 mg PO BID EUGENIA Last Admin: 08/02/21 09:33 Dose: 1 mg Documented by: Clonazepam (Clonazepam 0.5 Mg Tablet) 0.5 mg PO BEDTIME EUGENIA Clozapine (Clozapine 25 Mg Tablet) 25 mg PO DAILY EUGENIA Last Admin: 08/02/21 09:33 Dose: 25 mg Documented by: Clozapine (Clozapine 25 Mg Tablet) 112.5 mg PO BEDTIME EUGENIA Stop: 08/02/21 21:01 Clozapine 100 mg/ Clozapine 25 (mg) 125 mg PO BEDTIME EUGENIA Docusate Sodium (Docusate Sodium 100 Mg Capsule) 100 mg PO DAILY PRN PRN Reason: Constipation Docusate Sodium (Docusate Sodium 100 Mg Capsule) 100 mg PO BEDTIME PRN PRN Reason: constipation Lorazepam (Lorazepam 1 Mg Tablet) 1 mg PO BID PRN PRN Reason: anxiety/stiffness Last Admin: 08/01/21 22:38 Dose: 1 mg Documented by: Magnesium Hydroxide (Milk Of Magnesia 30 Ml Oral.Susp) 30 ml PO DAILY PRN PRN Reason: Constipation Nicotine (Nicotine 14 Mg Patch.Td24) 14 mg TRANSDERMA DAILY EUGENIA Last Admin: 08/02/21 09:33 Dose: 14 mg Documented by: Nicotine Polacrilex (Nicotine Polacrilex 2 Mg Gum) 2 mg BUCCAL Q2H PRN PRN Reason: Nicotine Cravings Last Admin: 08/02/21 17:09 Dose: 2 mg Documented by: Pharmacy Consult (Consult Rx Perform Med Rec) 1 each MISCELLANE ONCE PRN PRN Reason: Consult order Polyethylene Glycol (Polyethylene Glycol 3350 17 Gm Powd.Pack) 17 gm PO DAILY P RN PRN Reason: Constipation Propranolol HCl (Propranolol Hcl 10 Mg Tablet) 10 mg PO TID PRN; Protocol PRN Reason: Tremor Trazodone HCl (Trazodone Hcl 50 Mg Tablet) 50 mg PO BEDTIME PRN PRN Reason: Insomnia Last Admin: 08/01/21 20:56 Dose: 50 mg Documented by: Allergies Allergies Allergy/AdvReac Type Severity Reaction Status Date / Time diphenhydramine Allergy Unknown unknown Verified 10/12/20 04:33 [From BENADRYL] haloperidol [From HALDOL] Allergy Unknown unknown Verified 10/12/20 04:33 paliperidone AdvReac Severe dystonia Verified 03/30/21 23:47 Assessment & Plan Assessment & Plan (1) Fever: Status: Resolved Code(s): R50.9 - Fever, unspecified Assessment and Plan: resolved as 07/22/21 (2) Lactic acidosis: Status: Resolved Code(s): E87.2 - Acidosis Assessment and Plan: lactic acid drawn today 07/22/21 normal (3) Leukocytosis: Status: Resolved Code(s): D72.829 - Elevated white blood cell count, unspecified Assessment and Plan: WBC drawn today normal range (4) Schizoaffective disorder, bipolar type: Code(s): F25.0 - Schizoaffective disorder, bipolar type (5) Extrapyramidal symptom: Status: Acute Code(s): R29.818 - Other symptoms and signs involving the nervous system (6) Acute dystonic reaction due to drugs: Status: Acute Code(s): G24.02 - Drug induced acute dystonia Assessment and Plan: IMPRESSION: This is a 26-year-old male with past medical history of schizoaffective disorder who presents from medical floor following treatment for extrapyramidal symptoms and acute dystonic reaction from administered DAS of fluphenazine decaonate of 100mg on 06/14. Pt has hx of multiple inpatient admissions for psychotic sx, anabaptism preoccupation, command AH, impulsive and unsafe bx, paranoid ideations, and agitation. He was last admitted to [facility] after treatment for suicide attempt by self inflicted neck laceration; there he was started on Fluphenazine and subsequently given DAS.? On admission, pt was severely dystonic, rigid, with cogwheeling b/l arms/legs and parkinsonian tremor, unable to attend to ADL's without assistance, including eating, drinking, tolieting, standing or walking, difficulty talking and with a fixed stare. Zyprexa discontinued. Pt was treated with congentin and ativan; pt had some urinary retention which eventually cleared; ?dystonic/EPS symptoms started to clear when started on Amantadine which was tritrated to 100mg BID. Pt is not back to baseline, but can attend to most ADL's on his own or with only some assistance.? Patient denied any SI/HI/AVH and did not expressed any paranoid/delusional ideations; thought process is linear and goal directed. On admission to patient continues to deny any SI/HI/AVH and denies any delusional/paranoid ideations. He says he knows he's had these symptoms in the past but they are not present now. Pt is ambivalent about restarting antipsychotics given his recent experience of side-effect but also due his limited insight into the extent of his psychiatric illness. Patient says he did not come to the hospital this time for being unsafe but for a medication side-effect. He acknowledges that he could again become delusional but if so that will be his problem to deal with. He was willing to entertain Clozapine but does not think he'll really be available for weekly blood draws. Patient says that his outpt provider Dr. Light told him not to take any antipsychotics for now and he says he wants to wait for Dr. Light recommendations before restarting any medications. Patient however changed his mind and agreed to start clozapine. 07/20 Patient at 1st ambivalent however he decided to have a trial of clozapine and agrees to get blood draws once a week even though it will mildly curb his enthusiastically pursued outdoor adventures.? Field Services Analyst discussed case with Dr. Jerez who agrees with trial of clozapine as it has a very low risk for EPS/dystonia, is good for refractory psychotic illness (patient has failed Abilify, Haldol, Invega, Seroquel, fluphenazine, ziprasidone, Zyprexa (which is only partially helpful and patient reports it causes tremor)) and helpful for suicidality.? Field Services Analyst spoke with patient's outpatient [facility] nurse Camelia ([phone]) who is hopeful this can work and thinks the team can come up with a plan to accommodate patient getting this medication. -Today, pt was mildly febrile 100.2, mildly tachy HR 92 with elevated WBC 56206; meets SIRS criteria see below for workup; otherwise, remains psychiatrically stable; dystonia/EPS continue to lessen 07/25/21: Patient is stable; fever, leukocytosis, lactic acidosis resolved; patient agrees to restarting clozapine. He is asking about when he can discharge however is currently willing to stay. 07/27/21 patient continues to improve and is clearly walking and talking better; affect is more naturally expressive; some residual stiffness and and tremor but continues to improve. Patient continues to deny any SI, HI or AVH. He also denies any delusional thinking. He is okay with remain on the unit for titratio n of clozapine. 07/29/21 remains stable; no inappropriate behaviors; good impulse control. Says he is tolerating medications and feels his body continues to improve. In terms of full physical functioning, he feels that he is a 5/5 with 10 being back to his fully normal self. On admission pt has been psychiatrically stable, w/out psychosis or anna; currently he is still benefiting from effects of DAS however, this will likely wear off soon. Patient has agreed to start clozapine. However can take weeks to titrate to a therapeutic dose. When patient is off medications patient has history of quickly becoming disorganized, manic, psychotic and suicidal.? While it is possible that clozapine could quickly take effect and for patient to remain stable, he remains with limited insight, which combined with his chronic pattern of non-adherence with meds makes disposition planning difficult. There has been some discussion whether not patient requires [facility] for long-term stabilization. As of 07/27/2021 patient is demonstrating good behavioral and impulse control on the unit; he is also demonstrating reasonable insight and judgment in saying that he knows he needs medications and is willing to remain on the unit as clozapine gets titrated. This does not necessarily mean he accepts that he has a psychiatric illness, but it's improvement from past level of insight. Field Services Analyst is cautiously optimistic. However his history is fraught with medication noncompliance in the community and quick decompensation into severely unsafe behaviors. Also, Jose historically wants to discharge quickly and grant writer is concerned that he could soon become inpatient with remaining on the unit. Currently, patient agrees to remain on this medication and get weekly blood draws; again however he has historically been difficult to track down by his [employer] workers, making med management as an outpatient challenging. Field Services Analyst and team will discuss this with his mother and case picker (pt gave verbal permision/LEA for grant writer/team to talk with both in front of 2 witnesses, this grant writer and nurse Jeanne). Given this history, there is an effort to titrate clozapine as quickly as tolerated. Conversely, patient has had numerous negative side- effects and is still recovering from severe dystonic reaction from antipsychotic and so there is good reason to titrate slowly in effort to mitigate any potential side effects of clozapine, lest turn patient off to this medication as well. 07/31/21 -patient is nearly full back to his normal physical self; he has some delusional thoughts about his body however he otherwise denies SI, HI, AVH and does not overtly expressed any delusional thinking. That said it is concerning that nursing staff feels patient may be cheeking his clozapine medication; patient was highly defensive about the topic, cursing at nursing staff saying get the F- out of my room (During past his admission, patient exhibited similar behavior, frequently trying to avoid/cheek is medication). -Family meeting with patient's mother, psychologist social and out reach case picker. All agree that while patient is doing much better he remains with only limited insight into his psychiatric illness and need for medication and there is deep concerned that his understanding is superficial. Patient has a long pattern of discontinuing medications as soon as he is discharged and quickly becoming dangerous. Field Services Analyst, psychologist social and patient's mother and out reach worker all agree that patient needs to have extended time on clozapine at a therapeutic dose in order for his insight to deepen to a point that he willingly remains on medications as an outpatient and that discharge at this time would be unsafe. At this point patient remains willing to stay on the unit for clozapine to co ntinue titrating and other meds to taper off and be discontinued; patient agrees that it is important to see that he remains without dystonia/EPS symptoms as amantadine and possibly Cogentin are discontinued. While it is possible that clozapine will prove itself effective quickly, it is unlikely and grant writer is concerned it may take longer than patient is willing to endure. There is also the risk that clozapine, even at high doses will prove itself ineffective and another med trial will be necessary. The team, patient's out reach worker and family agree that it might be necessary for patient to have an extended inpatient stay at a facility such as [facility] in order to help patient get to a regional rehabilitation hospital nt where he can be safe in the community. -will continue to monitor patient and assess his insight and judgment. PLAN: On CV (Rescinded 3 day on 07/20) 1. Schizoaffective DO: pt agrees to trial of Clozapine including 1/week blood draws CBC w/ diff? weekly; registered pt in [facility] Titrating clozapine -Clozapine 100 mg q.h.s. (on 08/01/21) -clozapine 25 mg q.a.m starting on 07/31/21 -literature recommends about 25 mg per day increasing dose; if patient tolerates will increase titration rate patient is stable leukocytosis resolved; will monitor patient off 1:1 as has been appropriate (pt has hx of being inappropriate with female staff); low threshold for restarting one-to-one 2. EPS/Dystonia: improving *LOWERED TO ativan 1mg BID (down from TID) continue amantadine 100 mg BID Cogentin 1 mg b.i.d. Propranolol 10 mg t.i.d. DC Lovenox as patient refuses this medication and is actively ambulating on his own on the unit Pt/OT daily Speech eval advanced to solid foods 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 He was on benztropine 1 mg twice a day.? For now, I suggest continuing same dose of benztropine.? ? Increasing dose of medicine for tremor might result in dry mouth dizziness and confusion.? Instead, the antipsychotic with lower chance of similar complication is advised. 3.?SIRS: mildly febrile, elevated WBC, mildly tachy: due to Medication reaction (infectious process r./o): 07/20 pt mildly febrile 100.2, mildly tachy HR 92 with elevated WBC 40456; meets SIRS criteria Low-grade fever?-RESOLVED x 24+? hours Elevated WBCs -?wbc normal range with draw Lactic acidosis -?lactic acid in normal range ? blood draw No clear source of infection identified, patient is not septic CXR negative -NMS R/O UA: wnl other labs wnl covid/influenza/RSV Neg LDH: WNL 07/30- continue current medications. I spent minutes with the patient and/or on the patient floor today, greater than?50% of which was spent counseling/coordinating care. Reason for contiued inpatient stay Substantial Risk for: rapid decompensation
[2021-08-02 21:25] VITALS: BP 139/75; PULSE 88; RESP 18; TEMP 36.9; O2SAT 96
--- NOTE | 2021-08-03 04:09 | PC.NURSE ---
Pt. refused HS medications: clozapine, cogentin, clonazepam and amantadine. housecalls nurse psychiatrist Dr. Leblanc notified.
--- NOTE | 2021-08-03 09:19 | HO.PSYCHPN ---
Subjective Subjective Date of Service: 08/03/21 Reason For Visit: psychosis Interim History: Unfortunately patient refused last night's clozapine 112.5mg, however he did take this morning's dose of 25 mg. Last night he also refused Cogentin, clonazepam which he agreed to take just a few hours before; also refused amantadine. pt told va underwriter that when he says numerous pills in a cup, he gets scared and does not want to take them. He says if there are only a few pills he'll be willing to take. Pt agreed on Clozapine and Clonzepam and va underwriter made all others PRN's. Triple Valve Mechanic discussed medications and patient says he only needs them for tremor, nothing else. Triple Valve Mechanic asked patient about his hx of dangerous behaviors and pt says he does not remember this at all; he does remember being in the admitted to [facility] in the past but does not know why and does not think he needed to be. Patient says he has no memory of trying to stab himself a month ago (that resulted in a medical and then psychiatric admission). Patient he does not think he has a psychiatric illness. Pt denies any SI/HI or AVH; he also denies any paranoid delusional thoughts. After patient and va underwriter concluded conversation, patient lay down on his bed and soon started having a dialogue with himself, actually answering questions, engaged in a full discourse. Both Cogentin and amantadine were due to be tapered; since patient does not want them there discontinue. Patient's EPS and dystonia seem to be all or almost all resolved at this point; will continue to monitor EPS/dystonia to see if any of it returns. Mental Status Exam Mental Status Exam Narrative: Pt is alert and oriented x4; behavior is calm, cooperative; dressed in hospital pants, T-shirt; mood is good Affect congruent and naturally expressive; eye contact appropriate; Speech with normal inflection; normal volume and prosody; thought process is organized and goal directed though concrete; Thought content is on tx and discharge; he denies SI/HI or AVH, however patient internally preoccupied and self-dialoguing; denies delusional/paranoid; Patients insight and judgment are impaired and patient has no insight into psychiatric illness or his need for medication. Diagnostics Vital Signs (24Hr): Vital Signs - 24 hr 08/02/21 12:02 08/02/21 21:25 Temperature 98.4 F 98.4 F Pulse Rate 115 H 88 Respiratory Rate 16 18 Blood Pressure 119/56 L 139/75 Pulse Oximetry 97 96 BMI result Body Mass Index 20.6 Labs Results: 08/01/21 02:12 07/22/21 12:34 Labs: Laboratory Results - last 48 hr 08/01/21 22:20 Troponin I High Sens < 3.5 Imaging Radiology Impressions: ITS Impressions Chest X-Ray 07/21/21 12:22 IMPRESSION: Unremarkable examination. Medications Medications Current Medications Acetaminophen (Acetaminophen 325 Mg Tablet) 650 mg PO Q6H PRN PRN Reason: Pain, Mild (Pain Scale 1-3) Last Admin: 08/01/21 20:56 Dose: 650 mg Documented by: Al Hydroxide/Mg Hydroxide (Magnesium Hydrox/Alum Hydrox 30 Ml Oral.Susp) 30 ml PO Q6H PRN PRN Reason: Heartburn/Nausea Amantadine HCl (Amantadine Hcl 100 Mg Capsule) 100 mg PO BEDTIME [facility] Last Admin: 08/03/21 00:47 Dose: Not Given Documented by: Artificial Tears (Artificial Tears 15 Ml Drops) 2 drop EYE-BOTH Q4H PRN PRN Reason: dry eyes Benztropine Mesylate (Benztropine Mesylate 1 Mg Tablet) 1 mg PO BID [facility] Last Admin: 08/03/21 00:27 Dose: Not Given Documented by: Clonazepam (Clonazepam 0.5 Mg Tablet) 0.5 mg PO BEDTIME [facility] Last Admin: 08/03/21 00:47 Dose: Not Given Documented by: Clozapine (Clozapine 25 Mg Tablet) 25 mg PO DAILY [facility] Last Admin: 08/02/21 09:33 Dose: 25 mg Documented by: Clozapine 100 mg/ Clozapine 25 (mg) 125 mg PO BEDTIME [facility] Docusate Sodium (Docusate Sodium 100 Mg Capsule) 100 mg PO DAILY PRN PRN Reason: Constipation Docusate Sodium (Docusate Sodium 100 Mg Capsule) 100 mg PO BEDTIME PRN PRN Reason: constipation Lorazepam (Lorazepam 1 Mg Tablet) 1 mg PO BID PRN PRN Reason: anxiety/stiffness Last Admin: 08/01/21 22:38 Dose: 1 mg Documented by: Magnesium Hydroxide (Milk Of Magnesia 30 Ml Oral.Susp) 30 ml PO DAILY PRN PRN Reason: Constipation Nicotine (Nicotine 14 Mg Patch.Td24) 14 mg TRANSDERMA DAILY EUGENIA Last Admin: 08/02/21 09:33 Dose: 14 mg Documented by: Nicotine Polacrilex (Nicotine Polacrilex 2 Mg Gum) 2 mg BUCCAL Q2H PRN PRN Reason: Nicotine Cravings Last Admin: 08/02/21 21:17 Dose: 2 mg Documented by: Pharmacy Consult (Consult Rx Perform Med Rec) 1 each MISCELLANE ONCE PRN PRN Reason: Consult order Polyethylene Glycol (Polyethylene Glycol 3350 17 Gm Powd.Pack) 17 gm PO DAILY PRN PRN Reason: Constipation Propranolol HCl (Propranolol Hcl 10 Mg Tablet) 10 mg PO TID PRN; Protocol PRN Reason: Tremor Trazodone HCl (Trazodone Hcl 50 Mg Tablet) 50 mg PO BEDTIME PRN PRN Reason: Insomnia Last Admin: 08/01/21 20:56 Dose: 50 mg Documented by: Allergies Allergies Allergy/AdvReac Type Severity Reaction Status Date / Time diphenhydramine Allergy Unknown unknown Verified 10/12/20 04:33 [From BENADRYL] haloperidol [From HALDOL] Allergy Unknown unknown Verified 10/12/20 04:33 paliperidone AdvReac Severe dystonia Verified 03/30/21 23:47 Assessment & Plan Assessment & Plan (1) Fever: Status: Resolved Code(s): R50.9 - Fever, unspecified Assessment and Plan: resolved as 07/22/21 (2) Lactic acidosis: Status: Resolved Code(s): E87.2 - Acidosis Assessment and Plan: lactic acid drawn today 07/22/21 normal (3) Leukocytosis: Status: Resolved Code(s): D72.829 - Elevated white blood cell count, unspecified Assessment and Plan: WBC drawn today normal range (4) Schizoaffective disorder, bipolar type: Code(s): F25.0 - Schizoaffective disorder, bipolar type (5) Extrapyramidal symptom: Status: Acute Code(s): R29.818 - Other symptoms and signs involving the nervous system (6) Acute dystonic reaction due to drugs: Status: Acute Code(s): G24.02 - Drug induced acute dystonia Assessment and Plan: IMPRESSION: This is a 26-year-old male with past medical history of schizoaffective disorder who presents from medical floor following treatment for extrapyramidal symptoms and acute dystonic reaction from administered DAS of fluphenazine decaonate of 100mg on 06/14. Pt has hx of multiple inpatient admissions for psychotic sx, synagogue preoccupation, command AH, impulsive and unsafe bx, paranoid ideations, and agitation. He was last admitted to [facility] after treatment for suicide attempt by self inflicted neck laceration; there he was started on Fluphenazine and subsequently given DAS.? On admission, pt was severely dystonic, rigid, with cogwheeling b/l arms/legs and parkinsonian tremor, unable to attend to ADL's without assistance, including eating, drinking, tolieting, standing or walking, difficulty talking and with a fixed stare. Zyprexa discontinued. Pt was treated with congentin and ativan; pt had some urinary retention which eventually cleared; ?dystonic/EPS symptoms started to clear when started on Amantadine which was tritrated to 100mg BID. Pt is not back to baseline, but can attend to most ADL's on his own or with only some assistance.? Patient denied any SI/HI/AVH and did not expressed any paranoid/delusional ideations; thought process is linear and goal directed. On admission to patient continues to deny any SI/HI/AVH and denies any delusional/paranoid ideations. He says he knows he's had these symptoms in the past but they are not present now. Pt is ambivalent about restarting antipsychotics given his recent experience of side-effect but also due his limited insight into the extent of his psychiatric illness. Patient says he did not come to the hospital this time for being unsafe but for a medication side-effect. He acknowledges that he could again become delusional but if so that will be his problem to deal with. He was willing to entertain Clozapine but does not think he'll really be available for weekly blood draws. Patient says that his outpt provider Dr. Light told him not to take any antipsychotics for now and he says he wants to wait for Dr. Light recommendations before restarting any medications. Patient however changed his mind and agreed to start clozapine. 07/20 Patient at [facility] ambivalent however he decided to have a trial of clozapine and agrees to get blood draws once a week even though it will mildly curb his enthusiastically pursued outdoor adventures.? Triple Valve Mechanic discussed case with Dr. Jerez who agrees with trial of clozapine as it has a very low risk for EPS/dystonia, is good for refractory psychotic illness (patient has failed Abilify, Haldol, Invega, Seroquel, fluphenazine, ziprasidone, Zyprexa (which is only partially helpful and patient reports it causes tremor)) and helpful for suicidality.? Triple Valve Mechanic spoke with patient's outpatient [facility] nurse Camelia ([phone]) who is hopeful this can work and thinks the team can come up with a plan to accommodate patient getting this medication. -Today, pt was mildly febrile 100.2, mildly tachy HR 92 with elevated WBC 49317; meets SIRS criteria see below for workup; otherwise, remains psychiatrically stable; dystonia/EPS continue to lessen 07/25/21: Patient is stable; fever, leukocytosis, lactic acidosis resolved; patient agrees to restarting clozapine. He is asking about when he can discharge however is currently willing to stay. 07/27/21 patient continues to improve and is clearly walking and talking better; affect is more naturally expressive; some residual stiffness and and tremor but continues to improve. Patient continues to deny any SI, HI or AVH. He also denies any delusional thinking. He is okay with remain on the unit for titration of clozapine. 07/29/21 remains stable; no inappropriate behaviors; good impulse control. Says he is tolerating medications and feels his body continues to improve. In terms of full physical functioning, he feels that he is a 5/5 with 10 being back to his fully normal self. On admission pt has been psychiatrically stable, w/out psychosis or anna; currently he is still benefiting from effects of DAS however, this will likely wear off soon. Patient has agreed to start clozapine. However can take weeks to titrate to a therapeutic dose. When patient is off medications patient has history of quickly becoming disorganized, manic, psychotic and suicidal.? While it is possible that clozapine could quickly take effect and for patient to remain stable, he remains with limited insight, which combined with his chronic pattern of non-adherence with meds makes disposition planning difficult. There has been some discussion whether not patient requires [facility] for long-term stabilization. As of 07/27/2021 patient is demonstrating good behavioral and impulse control on the unit; he is also demonstrating reasonable insight and judgment in saying that he knows he needs medications and is willing to remain on the unit as clozapine gets titrated. This does not necessarily mean he accepts that he has a psychiatric illness, but it's improvement from past level of insight. Triple Valve Mechanic is cautiously optimistic. However his history is fraught with medication noncompliance in the community and quick decompensation into severely unsafe behaviors. Also, Jose historically wants to discharge quickly and va underwriter is concerned that he could soon become inpatient with remaining on the unit. Currently, patient agrees to remain on this medication and get weekly blood draws; again however he has historically been difficult to track down by his [employer] workers, making med management as an outpatient challenging. Triple Valve Mechanic and team will discuss this with his mother and vocational case manager (pt gave verbal permision/LEA for va underwriter/team to talk with both in front of 2 witnesses, this va underwriter and nurse Jeanne). Given this history, there is an effort to titrate clozapine as quickly as tolerated. Conversely, patient has had numerous negative side-effects and is still recovering from severe dystonic reaction from antipsychotic and so there is good reason to titrate slowly in effort to mitigate any potential side effects of clozapine, lest turn patient off to this medication as well. 07/31/21 -patient is nearly full back to his normal physical self; he has some delusional thoughts about his body however he otherwise denies SI, HI, AVH and does not overtly expressed any delusional thinking. That said it is concerning that nursing staff feels patient may be cheeking his clozapine medication; patient was highly defensive about the topic, cursing at nursing staff saying get the F- out of my room (During past his admission, patient exhibited similar behavior, frequently trying to avoid/cheek is medication). -Family meeting with patient's mother, social media senior associate and out reach vocational case manager. All agree that while patient is doing much better he remains with only limited insight into his psychiatric illness and need for medication and there is deep concerned that his understanding is superficial. Patient has a long pattern of discontinuing medications as soon as he is discharged and quickly becoming dangerous. Triple Valve Mechanic, social media senior associate and patient's mother and out reach worker all agree that patient needs to have extended time on clozapine at a therapeutic dose in order for his insight to deepen to a point that he willingly remains on medications as an outpatient and that discharge at this time would be unsafe. At this point patient remains willing to stay on the unit for clozapine to continue titrating and other meds to taper off and be discontinued; patient agrees that it is important to see that he remains without dystonia/EPS symptoms as amantadine and possibly Cogentin are discontinued. While it is possible that clozapine will prove itself effective quickly, it is unlikely and va underwriter is concerned it may take longer than patient is willing to endure. There is also the risk that clozapine, even at high doses will prove itself ineffective and another med trial will be necessary. The team, patient's out reach worker and family agree that it might be necessary for patient to have an extended inpatient stay at a facility such as [facility] in order to help patient get to a point where he can be safe in the community. -will continue to monitor patient and assess his insight and judgment. 08/03/21 Pt reveals No insight: Triple Valve Mechanic discussed medications and patient says he only needs them for tremor, nothing else. Triple Valve Mechanic asked patient about his hx of dangerous behaviors and pt says he does not remember this at all; he does remember being in the admitted to [facility] in the past but does not know why and does not think he needed to be. Patient says he has no memory of trying to stab himself a month ago (that resulted in a medical and then psychiatric admission). Patient he does not think he has a psychiatric illness. Pt denies any SI/HI or AVH; he also denies any paranoid delusional thoughts. After patient and va underwriter concluded conversation, patient lay down on his bed and soon started having a dialogue with himself, actually answering questions, engaged in a full discourse.? pt refuses Cogentin and amantadine; they were due to be tapered but since patient does not want them they're discontinued. ?Patient's EPS and dystonia seem to be all or almost all resolved at this point; will continue to monitor EPS/dystonia to see if any of it returns. PLAN: On CV (Rescinded 3 day on 07/20) 1. Schizoaffective DO: pt agrees to trial of Clozapine including 1/week blood draws CBC w/ diff? weekly; registered pt in [facility] Titrating clozapine -Clozapine 125mg -clozapine 25 mg q.a.m starting on 07/31/21 -literature recommends about 25 mg per day increasing dose; if patient tolerates will increase titration rate patient is stable leukocytosis resolved; will monitor patient off 1:1 as has been appropriate (pt has hx of being inappropriate with female staff); low threshold for restarting one-to-one 2. EPS/Dystonia: improving -only tremor in right hand remains, mostly on intention ativan prn DC'd amantadine; pt refuses scheduled cogentin now prn; pt refuses scheduled Propranolol 10 mg t.i.d now prn, pt refuses scheduled. 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 He was on benztropine 1 mg twice a day.? For now, I suggest continuing same dose of benztropine.? ? Increasing dose of medicine for tremor might result in dry mouth dizziness and confusion.? Instead, the antipsychotic with lower chance of similar complication is advised. 3.?SIRS: RESOLVED mildly febrile, elevated WBC, mildly tachy: due to Medication reaction (infectious process r./o): 07/20 pt mildly febrile 100.2, mildly tachy HR 92 with elevated WBC 62502; meets SIRS criteria Low-grade fever?-RESOLVED x 24+? hours Elevated WBCs -?wbc normal range with draw Lactic acidosis -?lactic acid in normal range ? blood draw No clear source of infection identified, patient is not septic CXR negative -NMS R/O UA: wnl other labs wnl covid/influenza/RSV Neg LDH: WNL I spent minutes with the patient and/or on the patient floor today, greater than?50% of which was spent counseling/coordinating care. Reason for contiued inpatient stay Substantial Risk for: harm to self and rapid decompensation
[2021-08-03] MEDS: cloZAPine 25 MG TABLET 50 MG PO (11:10)
[2021-08-03] MEDS: cloZAPine 25 MG TABLET PO (11:10)
[2021-08-03] MEDS: Nicotine 14 MG PATCH.TD24 TRANSDERMA (11:14)
[2021-08-03] MEDS: Nicotine Polacrilex 2 MG GUM BUCCAL ×3 (11:28→19:25)
[2021-08-03 13:00] VITALS: BP 139/58; PULSE 121; RESP 16; TEMP 37; O2SAT 97
[2021-08-03 18:00] VITALS: BP 136/78; PULSE 112; TEMP 37; O2SAT 97
[2021-08-03] MEDS: LORazepam 1 MG TABLET PO (19:23)
[2021-08-03] MEDS: cloZAPine 100 MG, cloZAPine 25 MG 125 MG PO (20:39)
[2021-08-03] MEDS: clonazePAM 0.5 MG TABLET PO (20:39)
--- NOTE | 2021-08-03 23:21 | PC.NURSE ---
Patient was pleasant and took HS medications.
[2021-08-04 09:00] VITALS: BP 125/79; PULSE 99; TEMP 37.1
[2021-08-04] MEDS: cloZAPine 25 MG TABLET PO (10:04)
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
[2021-08-04] MEDS: Nicotine Polacrilex 2 MG GUM BUCCAL ×2 (17:32→20:06)
[2021-08-04 18:00] VITALS: BP 149/72; PULSE 114; TEMP 36.4
[2021-08-04] MEDS: cloZAPine 25 MG TABLET 150 MG PO (20:05)
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
[2021-08-05] MEDS: Nicotine Polacrilex 2 MG GUM BUCCAL ×2 (15:47→19:56)
[2021-08-05 15:49] VITALS: BP 116/57; PULSE 60; RESP 14; TEMP 36.5; O2SAT 96
[2021-08-05 20:02] VITALS: BP 129/66; PULSE 129; RESP 16; TEMP 36.6; O2SAT 96
[2021-08-06] MEDS: cloZAPine 25 MG TABLET PO (08:55)
[2021-08-06] MEDS: Nicotine 14 MG PATCH.TD24 TRANSDERMA (08:55)
[2021-08-06 09:00] VITALS: BP 126/61; PULSE 99; TEMP 36.8; O2SAT 96
[2021-08-06] MEDS: Nicotine Polacrilex 2 MG GUM BUCCAL ×2 (12:53→17:44)
[2021-08-06 13:00] VITALS: BP 132/86; PULSE 116
--- NOTE | 2021-08-06 14:09 | PC.NURSE ---
pt signed 3 day notice on 08/06/2021. up on sunday08/10/2021.
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
[2021-08-06 18:00] VITALS: BP 149/91; PULSE 104; RESP 16
[2021-08-06] MEDS: clonazePAM 0.5 MG TABLET PO (20:15)
[2021-08-06] MEDS: cloZAPine 100 MG, cloZAPine 75 MG 175 MG PO (20:15)
[2021-08-07 09:00] VITALS: BP 129/58; PULSE 109; TEMP 37.2; O2SAT 95
[2021-08-07] MEDS: Nicotine 14 MG PATCH.TD24 TRANSDERMA (09:09)
[2021-08-07] MEDS: cloZAPine 25 MG TABLET PO (09:10)
[2021-08-07 13:00] VITALS: BP 136/77; PULSE 112
[2021-08-07] MEDS: Nicotine Polacrilex 2 MG GUM BUCCAL ×3 (14:46→20:22)
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
[2021-08-07 17:07] VITALS: BP 115/78; PULSE 112; TEMP 37.4; O2SAT 97
[2021-08-07] MEDS: cloZAPine 100 MG TABLET 200 MG PO (20:21)
[2021-08-07] MEDS: clonazePAM 0.5 MG TABLET PO (20:21)
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
[2021-08-08] MEDS: cloZAPine 25 MG TABLET PO (14:15)
[2021-08-08] MEDS: Nicotine 14 MG PATCH.TD24 TRANSDERMA ×2 (14:15)
[2021-08-08 14:22] LABS: MANUAL DIFF FLAG NO
[2021-08-08 14:26] LABS: Basophils Absolute Auto 0.1 X10*3/uL (0.0-0.2); Basophils Percent Auto 0.8 % (0-2); Eosinophils Absolute Auto 0.4 X10*3/uL (0.0-0.4); Eosinophils Percent Auto 5.7 % (0-4); Hematocrit 46.6 % (42.0-52.0); Hemoglobin 16.2 g/dl (14.0-18.0); Imm Gran Abs Auto 0.02 X10*3/uL (0.00-0.03); Imm Gran Pct Auto 0.3 % (0.0-0.4); Lymphocytes Absolute Auto 2.2 X10*3/uL (1.2-4.9); Mean Corpuscular HGB Conc 34.8 g/dl (31.0-36.0); Mean Corpuscular Hemoglobin 31.5 pg (27.0-33.0); Mean Corpuscular Volume 90.7 fL (80.0-98.0); Mean Platelet Volume 9.9 fL (9.4-12.4); Monocytes Absolute Auto 0.7 X10*3/uL (0.1-1.2); Monocytes Percent Auto 11.2 % (2-11); Neutrophils Absolute Auto 3.1 x10*3/uL (2.0-8.3); Platelet Count 202 X10*3/uL (160-400); Red Blood Count 5.14 X10*6/uL (4.60-5.80); Red Cell Distribution Width 11.9 % (11.0-16.0); White Blood Count 6.4 X10*3/uL (4.8-10.8)
[2021-08-08] MEDS: Nicotine Polacrilex 2 MG GUM BUCCAL ×2 (16:33→20:51)
[2021-08-08 17:40] VITALS: BP 125/78; PULSE 126; RESP 18; TEMP 36.6; O2SAT 96
[2021-08-08] MEDS: cloZAPine 25 MG TABLET 225 MG PO (20:31)
[2021-08-08] MEDS: clonazePAM 0.5 MG TABLET PO (20:31)
[2021-08-09] MEDS: Nicotine 14 MG PATCH.TD24 TRANSDERMA (09:24)
[2021-08-09] MEDS: cloZAPine 25 MG TABLET PO (09:24)
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
[2021-08-09] MEDS: Nicotine Polacrilex 2 MG GUM BUCCAL ×2 (15:09→19:44)
[2021-08-09 18:00] VITALS: BP 141/85; PULSE 73
[2021-08-09] MEDS: cloZAPine 200 MG, cloZAPine 50 MG 250 MG PO (19:52)
[2021-08-09] MEDS: clonazePAM 0.5 MG TABLET PO (19:52)
[2021-08-10] MEDS: cloZAPine 25 MG TABLET PO (09:01)
[2021-08-10] MEDS: Nicotine 14 MG PATCH.TD24 TRANSDERMA (09:01)
[2021-08-10 09:12] VITALS: BP 131/83; PULSE 106; TEMP 36.4; O2SAT 96
[2021-08-10] MEDS: Nicotine Polacrilex 2 MG GUM BUCCAL ×3 (13:03→19:37)
--- NOTE | 2021-08-10 17:58 | HO.PSYCHPN ---
Subjective Subjective Date of Service: 08/10/21 Reason For Visit: psychosis Interim History: Met with patient and Shari Barraza, social Work Patient's 3 day notice is due tomorrow and he is requesting discharge. Patient Is calm, with organized speech, behaviors and thought process. He says that he has been here long enough and reminds curriculum writer that he already retracted his previous 3 day notice to stay longer so that clozapine could be further titrated. Patient says that he feels fine and that he has no SI, HI, or voices; pt denies any hx of voices; he says he has had good behaviors throughout his admission. Patient also says that the only reason he came to the hospital in the 1st place was Not because he was having any behaviors in the community but because he had a medication side effect that required medical attention and that he was admitted to the medical floor; he reminds curriculum writer that he only came to the psychiatric floor so that his medications could be adjusted, which he says is now at a pretty high level. Patient said he understands why curriculum writer, social services counselor and his outpatient people, mother, are worried but he says that despite peoples worries, it's my life... and he should be able to live it. He Acknowledges he has stopped medications in the past but says he will continue taking this medication on discharge and says this medication is not bother him. Patient also said that he has a timer on his phone to remind him when to take his medication. He does not think a VNA is a good idea since he is frequently not at home (something to which his outpatient worker concedes). Patient also reminds curriculum writer that he was discharged from the last hospital and continue to take his medications after discharge, even going to get his IM shot 2 weeks post discharge, which turned out to be the cause the side effect. Patient demonstrated insight into this conundrum and said So if I keep taking my meds here and the problem is you don't trust me that all keep taking them, I am just going to be stuck here forever... If I'm ever going to be able to leave you will have to trust me to take my medication... If you don't ever trust me, I'll never leave... Order Entry Representative and social services counselor discussed patient's psychiatric illness. Patient says he does not think he really needs the medications But that he will take them because we think he needs them. Patient denies that his recent suicide attempt was a suicide attempt. Early on in this admission, patient did tell this social services counselor that he used a knife in a suicide attempt. Elsewhere it's recorded that he said voices told him to do. Order Entry Representative asked him about this a week ago to which he said he does not remember this event at all. Today he said it was not a suicide attempt but that he was working on an antique box and the knife slipped and accidentally stabbed [him]. Patient does not remember having out of control or dangerous behaviors in the past and feels that people who have called crisis or 911 to bring him to the hospital were over reacting. He does remember At one point worrying about his neighbor doing hinduism but he says he has not thought about that In a long time and does not think that at all. Patient said that he really does not want to retract his 3 day notice, that he has been in the hospital a long time especially when combining the time spent on the medical floor and then on the psychiatric floor. Patient excepted that curriculum writer and social services counselor would have to discuss this further on whether not to petition the court for involuntary commitment. Order Entry Representative and social services counselor discussed this with patient's mother who is very worried that patient will stop taking medications once he leaves the hospital and again become unsafe. Order Entry Representative and social services counselor agree that this Is a significant risk. Mental Status Exam Mental Status Exam Narrative: Pt is alert and oriented; behavior calm and cooperative; he is dressed in hospital pants, T-shirt and a jacket; mood is good affect calm; Speech with normal inflection; normal volume and prosody; thought process is organized, logical and goal directed though concrete; Thought content is on discharge and not needing to remain on the unit; he denies SI/HI. He denies AVH or paranoid delusions; Patients insight and judgment are impaired in that patient has no insight into psychiatric illness or his need for medication. Diagnostics Vital Signs (24Hr): Vital Signs - 24 hr 08/09/21 18:00 08/10/21 09:12 Temperature 97.6 F Pulse Rate 73 106 H Blood Pressure 141/85 H 131/83 Pulse Oximetry 96 BMI result Body Mass Index 20.6 Labs Results: 08/08/21 14:19 07/22/21 12:34 Labs: Laboratory Results - last 48 hr 08/08/21 13:14 Clozapine Cancelled Norclozapine Cancelled Imaging Radiology Impressions: ITS Impressions Chest X-Ray 07/21/21 12:22 IMPRESSION: Unremarkable examination. Medications Medications Current Medications Acetaminophen (Acetaminophen 325 Mg Tablet) 650 mg PO Q6H PRN PRN Reason: Pain, Mild (Pain Scale 1-3) Last Admin: 08/01/21 20:56 Dose: 650 mg Documented by: Al Hydroxide/Mg Hydroxide (Magnesium Hydrox/Alum Hydrox 30 Ml Oral.Susp) 30 ml PO Q6H PRN PRN Reason: Heartburn/Nausea Artificial Tears (Artificial Tears 15 Ml Drops) 2 drop EYE-BOTH Q4H PRN PRN Reason: dry eyes Benztropine Mesylate (Benztropine Mesylate 1 Mg Tablet) 1 mg PO BID PRN PRN Reason: EPS Clonazepam (Clonazepam 0.5 Mg Tablet) 0.5 mg PO BEDTIME [facility] Last Admin: 08/09/21 19:52 Dose: 0.5 mg Documented by: Clozapine (Clozapine 25 Mg Tablet) 25 mg PO DAILY [facility] Last Admin: 08/10/21 09:01 Dose: 25 mg Documented by: Clozapine 200 mg/ Clozapine 50 (mg) 250 mg PO BEDTIME [facility] Last Admin: 08/09/21 19:52 Dose: 250 mg Documented by: Docusate Sodium (Docusate Sodium 100 Mg Capsule) 100 mg PO DAILY PRN PRN Reason: Constipation Docusate Sodium (Docusate Sodium 100 Mg Capsule) 100 mg PO BEDTIME PRN PRN Reason: constipation Magnesium Hydroxide (Milk Of Magnesia 30 Ml Oral.Susp) 30 ml PO DAILY PRN PRN Reason: Constipation Nicotine (Nicotine 14 Mg Patch.Td24) 14 mg TRANSDERMA DAILY [facility] Last Admin: 08/10/21 09:01 Dose: 14 mg Documented by: Nicotine Polacrilex (Nicotine Polacrilex 2 Mg Gum) 2 mg BUCCAL Q2H PRN PRN Reason: Nicotine Cravings Last Admin: 08/10/21 16:26 Dose: 2 mg Documented by: Pharmacy Consult (Consult Rx Perform Med Rec) 1 each MISCELLANE ONCE PRN PRN Reason: Consult order Polyethylene Glycol (Polyethylene Glycol 3350 17 Gm Powd.Pack) 17 gm PO DAILY PRN PRN Reason: Constipation Propranolol HCl (Propranolol Hcl 10 Mg Tablet) 10 mg PO TID PRN; Protocol PRN Reason: Tremor Trazodone HCl (Trazodone Hcl 50 Mg Tablet) 50 mg PO BEDTIME PRN PRN Reason: Insomnia Last Admin: 08/01/21 20:56 Dose: 50 mg Documented by: Allergies Allergies Allergy/AdvReac Type Severity Reaction Status Date / Time diphenhydramine Allergy Unknown unknown Verified 10/12/20 04:33 [From BENADRYL] haloperidol [From HALDOL] Allergy Unknown unknown Verified 10/12/20 04:33 paliperidone AdvReac Severe dystonia Verified 03/30/21 23:47 Assessment & Plan Assessment & Plan (1) Schizoaffective disorder, bipolar type: Status: Acute Code(s): F25.0 - Schizoaffective disorder, bipolar type (2) Extrapyramidal symptom: Status: Acute Code(s): R29.818 - Other symptoms and signs involving the nervous system Assessment and Plan: nearly resolved (3) Acute dystonic reaction due to drugs: Status: Resolved Code(s): G24.02 - Drug induced acute dystonia Assessment and Plan: nearly resolved Assessment and Plan: IMPRESSION: This is a 26-year-old male with past medical history of schizoaffective disorder who presents from medical floor following treatment for extrapyramidal symptoms and acute dystonic reaction from administered DAS of fluphenazine decaonate of 100mg on 06/14. Pt has hx of multiple inpatient admissions for psychotic sx, cheondoism preoccupation, command AH, impulsive and unsafe bx, paranoid ideations, and agitation. He was last admitted to [facility] after treatment for suicide attempt by self inflicted neck laceration; there he was started on Fluphenazine and subsequently given DAS.? On admission, pt was severely dystonic, rigid, with cogwheeling b/l arms/legs and parkinsonian tremor, unable to attend to ADL's without assistance, including eating, drinking, tolieting, standing or walking, difficulty talking and with a fixed stare. Zyprexa discontinued. Pt was treated with congentin and ativan; pt had some urinary retention which eventually cleared; ?dystonic/EPS symptoms started to clear when started on Amantadine which was tritrated to 100mg BID. Pt is not back to baseline, but can attend to most ADL's on his own or with only some assistance.? Patient denied any SI/HI/AVH and did not expressed any paranoid/delusional ideations; thought process is linear and goal directed. On admission to patient continues to deny any SI/HI/AVH and denies any delusional/paranoid ideations. He says he knows he's had these symptoms in the past but they are not present now. Pt is ambivalent about restarting antipsychotics given his recent experience of side-effect but also due his limited insight into the extent of his psychiatric illness. Patient says he did not come to the hospital this time for being unsafe but for a medication side-effect. He acknowledges that he could again become delusional but if so that will be his problem to deal with. He was willing to entertain Clozapine but does not think he'll really be available for weekly blood draws. Patient says that his outpt provider Dr. Light told him not to take any antipsychotics for now and he says he wants to wait for Dr. Light recommendations before restarting any medications. Patient however changed his mind and agreed to start clozapine. 07/20 Patient at 1st ambivalent however he decided to have a trial of clozapine and agrees to get blood draws once a week even though it will mildly curb his enthusiastically pursued outdoor adventures.? Order Entry Representative discussed case with Dr. Jerez who agrees with trial of clozapine as it has a very low risk for EPS/dystonia, is good for refractory psychotic illness (patient has failed Abilify, Haldol, Invega, Seroquel, fluphenazine, ziprasidone, Zyprexa (which is only partially helpful and patient reports it causes tremor)) and helpful for suicidality.? Order Entry Representative spoke with patient's outpatient [facility] nurse Camelia ([phone]) who is hopeful this can work and thinks the team can come up with a plan to accommodate patient getting this medication. -Today, pt was mildly febrile 100.2, mildly tachy HR 92 with elevated WBC 32573; meets SIRS criteria see below for workup; otherwise, remains psychiatrically stable; dystonia/EPS continue to lessen 07/25/21: Patient is stable; fever, leukocytosis, lactic acidosis resolved; patient agrees to restarting clozapine. He is asking about when he can discharge however is currently willing to stay. 07/27/21 patient continues to improve and is clearly walking and talking better; affect is more naturally expressive; some residual stiffness and and tremor but continues to improve. Patient continues to deny any SI, HI or AVH. He also denies any delusional thinking. He is okay with remain on the unit for titration of clozapine. 07/29/21 remains stable; no inappropriate behaviors; good impulse control. Says he is tolerating medications and feels his body continues to improve. In terms of full physical functioning, he feels that he is a 5/5 with 10 being back to his fully normal self. On admission pt has been psychiatrically stable, w/out psychosis or anna; currently he is still benefiting from effects of DAS however, this will likely wear off soon. Patient has agreed to start clozapine. However can take weeks to titrate to a therapeutic dose. When patient is off medications patient has history of quickly becoming disorganized, manic, psychotic and suicidal.? While it is possible that clozapine could quickly take effect and for patient to remain stable, he remains with limited insight, which combined with his chronic pattern of non-adherence with meds makes disposition planning difficult. There has been some discussion whether not patient requires VIBRA for long-term stabilization. As of 07/27/2021 patient is demonstrating good behavioral and impulse control on the unit; he is also demonstrating reasonable insight and judgment in saying that he knows he needs medications and is willing to remain on the unit as clozapine gets titrated. This does not necessarily mean he accepts that he has a psychiatric illness, but it's improvement from past level of insight. Order Entry Representative is cautiously optimistic. However his history is fraught with medication noncompliance in the community and quick decompensation into severely unsafe behaviors. Also, Jose historically wants to discharge quickly and curriculum writer is concerned that he could soon become inpatient with remaining on the unit. Currently, patient agrees to remain on this medication and get weekly blood draws; again however he has historically been difficult to track down by his [facility] workers, making med management as an outpatient challenging. Order Entry Representative and team will discuss this with his mother and pillowcase cleaner (pt gave verbal permision/LEA for curriculum writer/team to talk with both in front of 2 witnesses, this curriculum writer and nurse Angel). Given this history, there is an effort to titrate clozapine as quickly as tolerated. Conversely, patient has had numerous negative side-effects and is still recovering from severe dystonic reaction from antipsychotic and so there is good reason to titrate slowly in effort to mitigate any potential side effects of clozapine, lest turn patient off to this medication as well. 07/31/21 -patient is nearly full back to his normal physical self; he has some delusional thoughts about his body however he otherwise denies SI, HI, AVH and does not overtly expressed any delusional thinking. That said it is concerning that nursing staff feels patient may be cheeking his clozapine medication; patient was highly defensive about the topic, cursing at nursing staff saying get the F- out of my room (During past his admission, patient exhibited similar behavior, frequently trying to avoid/cheek is medication). -Family meeting with patient's mother, social services counselor and out reach pillowcase cleaner. All agree that while patient is doing much better he remains with only limited insight into his psychiatric illness and need for medication and there is deep concerned that his understanding is superficial. Patient has a long pattern of discontinuing medications as soon as he is discharged and quickly becoming dangerous. Order Entry Representative, social services counselor and patient's mother and out reach worker all agree that patient needs to have extended time on clozapine at a therapeutic dose in order for his insight to deepen to a point that he willingly remains on medications as an outpatient and that discharge at this time would be unsafe. At this point patient remains willing to stay on the unit for clozapine to continue titrating and other meds to taper off and be discontinued; patient agrees that it is important to see that he remains without dystonia/EPS symptoms as amantadine and possibly Cogentin are discontinued. While it is possible that clozapine will prove itself effective quickly, it is unlikely and curriculum writer is concerned it may take longer than patient is willing to endure. There is also the risk that clozapine, even at high doses will prove itself ineffective and another med trial will be necessary. The team, patient's out reach worker and family agree that it might be necessary for patient to have an extended inpatient stay at a facility such as [facility] in order to help patient get to a point where he can be safe in the community. -will continue to monitor patient and assess his insight and judgment. 08/03/21 Pt reveals No insight: Order Entry Representative discussed medications and patient says he only needs them for tremor, nothing else. Order Entry Representative asked patient about his hx of dangerous behaviors and pt says he does not remember this at all; he does remember being in the admitted to [facility] in the past but does not know why and does not think he needed to be. Patient says he has no memory of trying to stab himself a month ago (that resulted in a medical and then psychiatric admission). Patient he does not think he has a psychiatric illness. Pt denies any SI/HI or AVH; he also denies any paranoid delusional thoughts. After patient and curriculum writer concluded conversation, patient lay down on his bed and soon started having a dialogue with himself, actually answering questions, engaged in a full discourse.? 08/05 patient refused clozapine a.m. and p.m. dose 08/06 today patient signed a 3 day notice. He did take clozapine this morning and agrees to continue taking it; he denies any medication side effects and says he was just sleeping. He also said he would be thank his 3 day notice as curriculum writer explained medications need to be further titrated. Of note, patient's affect looks more anxious today 08/08 continues to deny any psychiatric symptoms; continues to isolate in his room intermittently internally dialogue. Patient says he is in good mood and hopes to discharge. Willing to retract 3 day if clozapine still needs to be increased. 08/10/19 Complicated Case: Patient's 3 day notice is due tomorrow and he is requesting discharge. Patient Is calm, with organized speech, behaviors and thought process. He says that he has been here long enough and reminds curriculum writer that he already retracted his previous 3 day notice to stay longer so that clozapine could be further titrated. Patient says that he feels fine and that he has no SI, HI, or voices; pt denies any hx of voices; he says he has had good behaviors throughout his admission. Patient also says that the only reason he came to the hospital in the 1st place was Not because he was having any behaviors in the community but because he had a medication side effect that required medical attention and that he was admitted to the medical floor; he reminds curriculum writer that he only came to the psychiatric floor so that his medications could be adjusted, which he says is now at a pretty high level. Patient said he understands why curriculum writer, social services counselor and his outpatient people, mother, are worried but he says that despite peoples worries, it's my life... and he should be able to live it. He Acknowledges he has stopped medications in the past but says he will continue taking this medication on discharge and says this medication is not bother him. Patient also said that he has a timer on his phone to remind him when to take his medication. He does not think a VNA is a good idea since he is frequently not at home (something to which his outpatient worker concedes). Patient also reminds curriculum writer that he was discharged from the last hospital and continue to take his medications after discharge, even going to get his IM shot 2 weeks post discharge, which turned out to be the cause the side effect. Patient demonstrated insight into this conundrum and said So if I keep taking my meds here and the problem is you don't trust me that all keep taking them, I am just going to be stuck here forever... If I'm ever going to be able to leave you will have to trust me to take my medication... If you don't ever trust me, I'll never leave... Order Entry Representative and social services counselor discussed patient's psychiatric illness. Patient says he does not think he really needs the medications But that he will take them because we think he needs them. Patient denies that his recent suicide attempt was a suicide attempt. Early on in this admission, patient did tell this social services counselor that he used a knife in a suicide attempt. Elsewhere it's recorded that he said voices told him to do. Order Entry Representative asked him about this a week ago to which he said he does not remember this event at all. Today he said it was not a suicide attempt but that he was working on an [employer] box and the knife slipped and accidentally stabbed [him]. Patient does not remember having out of control or dangerous behaviors in the past and feels that people who have called crisis or 911 to bring him to the hospital were over reacting. He does remember At one point worrying about his neighbor doing hinduism but he says he has not thought about that In a long time and does not think that at all. Patient said that he really does not want to retract his 3 day notice, that he has been in the hospital a long time especially when combining the time spent on the medical floor and then on the psychiatric floor. Patient accepted that curriculum writer and social services counselor would have to discuss this further on whether not to petition the court for involuntary commitment. PLAN: 3 Day submitted; due 08/11/21 q15min checks for now (low threshold for increasing to 5's or 1:1) 1. Schizoaffective DO: pt agrees to trial of Clozapine including 1/week blood draws CBC w/ diff? weekly; registered pt in [facility] ordered Clozapine level Titrating clozapine -Clozapine 250mg (starting on 08/09/21) -clozapine 25 mg q.a.m (since 07/31/21) -literature recommends about 25 mg per day increasing dose; so far patient tolerates titration rate; denies side-effects =patient off 1:1 as has been appropriate (pt has hx of being inappropriate with female staff); low threshold for restarting one-to-one 2. EPS/Dystonia: resolved -minor tremor in right hand ativan prn DC'd amantadine; pt refuses scheduled cogentin now prn; pt refuses scheduled Propranolol 10 mg t.i.d now prn, pt refuses scheduled. -Patient's EPS and dystonia are nearly fully resolved; will continue to monitor EPS/dystonia to see if any of it returns. 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 He was on benztropine 1 mg twice a day.? For now, I suggest continuing same dose of benztropine.? ? Increasing dose of medicine for tremor might result in dry mouth dizziness and confusion.? Instead, the antipsychotic with lower chance of similar complication is advised. 3.?Leukocytosis (SIRS): RESOLVED mildly febrile, elevated WBC, mildly tachy: due to Medication reaction (infectious process r./o): 07/20 pt mildly febrile 100.2, mildly tachy HR 92 with elevated WBC 02763; meets SIRS criteria Low-grade fever?-RESOLVED x 24+? hours Elevated WBCs -?wbc normal range with draw Lactic acidosis -?lactic acid in normal range ? blood draw No clear source of infection identified, patient is not septic CXR negative -NMS R/O UA: wnl other labs wnl covid/influenza/RSV Neg [facility]: WNL I spent minutes with the patient and/or on the patient floor today, greater than?50% of which was spent counseling/coordinating care. Reason for contiued inpatient stay Substantial Risk for: rapid decompensation
[2021-08-10 18:40] VITALS: BP 139/79; PULSE 115; RESP 18; TEMP 36.6; O2SAT 95
[2021-08-10] MEDS: clonazePAM 0.5 MG TABLET PO (20:26)
[2021-08-10] MEDS: cloZAPine 200 MG, cloZAPine 50 MG 250 MG PO (20:26)
[2021-08-11 07:00] VITALS: BMI 23.4
[2021-08-11 09:00] VITALS: BP 127/71; PULSE 136; RESP 16; TEMP 36.9; O2SAT 94
[2021-08-11] MEDS: cloZAPine 25 MG TABLET PO (09:19)
[2021-08-11] MEDS: Nicotine 14 MG PATCH.TD24 TRANSDERMA (09:19)
[2021-08-11] MEDS: Nicotine Polacrilex 2 MG GUM BUCCAL ×3 (13:07→21:55)
[2021-08-11 17:45] VITALS: BP 150/93; PULSE 124; RESP 18; TEMP 36.6; O2SAT 97
--- NOTE | 2021-08-11 20:23 | HO.PSYCHPN ---
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 where he lives by himself in an apartment and does not want VNA. Correctional Security Officer and team however agree that patient's history shows that prior to this, he needs to demonstrate that he can remain medication adherent and safe in the community. The that end, adjusto writer operator and team would like to see if there is a graduated planned that patient could get on, perhaps living in a skilled nursing for some designated time and then, if remaining on medications, pt could perhaps discharging back to his own apartment. If not that, perhaps patient could demonstrate his ability to remain safe by adhering to meeting with a VNA several times a week and after accomplishing this for some designated time could then graduate to taking his medications on his own. It is this adjusto writer operator's opinion that these issues need to be discussed and plan made prior to patient's discharge. Thus adjusto writer operator will file for involuntary commitment at this time. Team will continue to discuss whether or not patient requires a long-term psychiatric admission at a facility such as [facility]3]. Furthermore, although patient's current ANC is within normal limits, it has been mildly, but steadily trending down. It is still well within normal limits however would like to continue to monitor here on the inpatient unit to make sure that it remains stable as adjusto writer operator is concerned about patients commitment to follow up. Would also like to get clozapine level as it is not always dose dependent. PLAN: 3 Day submitted; due 08/11/21 FILED PETITION FOR INVOLUNTARY COMMITMENT q15min checks for now (low threshold for increasing to 5's or 1:1) 1. Schizoaffective DO: -Clozapine 275mg QHS (starting on 08/12/21) (will DC a.m. dose and added to p.m. dose since patient wants 1 time dosing at night; while this makes it difficult for a VNA, this medication is almost always given at bedtime given its sedating effect) pt agrees to trial of Clozapine including 1/week blood draws CBC w/ diff? weekly; registered pt in [facility] ordered Clozapine level (not sure why it was not drawn; will re-order) -literature recommends about 25 mg per day increasing dose; so far patient tolerates titration rate; denies side-effects =patient off 1:1 as has been appropriate (pt has hx of being inappropriate with female staff); low threshold for restarting one-to-one 2. EPS/Dystonia: resolved -minor tremor in right hand ativan prn DC'd amantadine; pt refuses scheduled cogentin now prn; pt refuses scheduled Propranolol 10 mg t.i.d now prn, pt refuses scheduled. -Patient's EPS and dystonia are nearly fully resolved; will continue to monitor EPS/dystonia to see if any of it returns. 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 He was on benztropine 1 mg twice a day.? For now, I suggest continuing same dose of benztropine.? ? Increasing dose of medicine for tremor might result in dry mouth dizziness and confusion.? Instead, the antipsychotic with lower chance of similar complication is advised. 3.?Leukocytosis (SIRS): RESOLVED mildly febrile, elevated WBC, mildly tachy: due to Medication reaction (infectious process r./o): 07/20 pt mildly febrile 100.2, mildly tachy HR 92 with elevated WBC 20808; meets SIRS criteria Low-grade fever?-RESOLVED x 24+? hours Elevated WBCs -?wbc normal range with draw Lactic acidosis -?lactic acid in normal range ? blood draw No clear source of infection identified, patient is not septic CXR negative -NMS R/O UA: wnl other labs wnl covid/influenza/RSV Neg LDH: WNL I spent minutes with the patient and/or on the patient floor today, greater than?50% of which was spent counseling/coordinating care. Reason for contiued inpatient stay Substantial Risk for: rapid decompensation
[2021-08-11] MEDS: cloZAPine 200 MG, cloZAPine 50 MG 250 MG PO (20:31)
[2021-08-11] MEDS: clonazePAM 0.5 MG TABLET PO (20:32)
[2021-08-11 21:24] VITALS: BP 137/81; PULSE 118
--- NOTE | 2021-08-12 12:25 | HO.PSYCHPN ---
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 -literature recommends about 25 mg per day increasing dose; so far patient tolerates titration rate; denies side-effects =patient off 1:1 as has been appropriate (pt has hx of being inappropriate with female staff); low threshold for restarting one-to-one 2. EPS/Dystonia: resolved -minor tremor in right hand ativan prn DC'd amantadine; pt refuses scheduled cogentin now prn; pt refuses scheduled Propranolol 10 mg t.i.d now prn, pt refuses scheduled. -Patient's EPS and dystonia are nearly fully resolved; will continue to monitor EPS/dystonia to see if any of it returns. 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 He was on benztropine 1 mg twice a day.? For now, I suggest continuing same dose of benztropine.? ? Increasing dose of medicine for tremor might result in dry mouth dizziness and confusion.? Instead, the antipsychotic with lower chance of similar complication is advised. 3.?Leukocytosis (SIRS): RESOLVED mildly febrile, elevated WBC, mildly tachy: due to Medication reaction (infectious process r./o): 07/20 pt mildly febrile 100.2, mildly tachy HR 92 with elevated WBC 55056; meets SIRS criteria Low-grade fever?-RESOLVED x 24+? hours Elevated WBCs -?wbc normal range with draw Lactic acidosis -?lactic acid in normal range ? blood draw No clear source of infection identified, patient is not septic CXR negative -NMS R/O UA: wnl other labs wnl covid/influenza/RSV Neg [facility]: WNL I spent minutes with the patient and/or on the patient floor today, greater than?50% of which was spent counseling/coordinating care. Reason for contiued inpatient stay Substantial Risk for: inability to function
[2021-08-12] MEDS: Nicotine Polacrilex 2 MG GUM BUCCAL ×2 (16:25→18:07)
[2021-08-12 21:09] VITALS: BP 129/61; PULSE 120; TEMP 36.5; O2SAT 98
--- NOTE | 2021-08-12 23:25 | PC.NURSE ---
pt declined to wake up to take mediation after multiple attempts. Intially had asked for them but pharmacy had to make a change by time RN went to administer them, he was sleeping and refused to take them
--- NOTE | 2021-08-13 | ECG_ITS ---
Test Reason : cp Blood Pressure : / mmHG Vent. Rate : 113 BPM Atrial Rate : 113 BPM P-R Int : 138 ms QRS Dur : 084 ms QT Int : 314 ms P-R-T Axes : 076 099 024 degrees QTc Int : 430 ms Sinus tachycardia Rightward axis Borderline ECG When compared with ECG of 01-AUG-2021 22:21, Non-specific change in ST segment in Lateral leads Referred By: Valarie Stringer Electronically Signed By:IRMA MCADAMS MD
--- NOTE | 2021-08-13 11:59 | P.PNPSI_ITS ---
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 are nearly fully resolved; will continue to monitor EPS/dystonia to see if any of it returns. 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 He was on benztropine 1 mg twice a day.? For now, I suggest continuing same dose of benztropine.? ? Increasing dose of medicine for tremor might result in dry mouth dizziness and confusion.? Instead, the antipsychotic with lower chance of similar complication is advised. 3.?Leukocytosis (SIRS): RESOLVED mildly febrile, elevated WBC, mildly tachy: due to Medication reaction (infectious process r./o): 07/20 pt mildly febrile 100.2, mildly tachy HR 92 with elevated WBC [id number]; meets SIRS criteria Low-grade fever?-RESOLVED x 24+? hours Elevated WBCs -?wbc normal range with draw Lactic acidosis -?lactic acid in normal range ? blood draw No clear source of infection identified, patient is not septic CXR negative -NMS R/O UA: wnl other labs wnl covid/influenza/RSV Neg [facility]: WNL I spent minutes with the patient and/or on the patient floor today, greater than?50% of which was spent counseling/coordinating care. Patient educated on: diagnosis Reason for contiued inpatient stay Substantial Risk for: inability to function
[2021-08-13] MEDS: Nicotine 14 MG PATCH.TD24 TRANSDERMA (13:27)
[2021-08-13] MEDS: Nicotine Polacrilex 2 MG GUM BUCCAL ×3 (13:28→23:14)
[2021-08-13 15:40] VITALS: BP 131/70; PULSE 124; RESP 16; TEMP 36.6; O2SAT 99
--- NOTE | 2021-08-13 16:37 | PC.NURSE ---
At approximately 15:35 this nurse was notified that patient was feeling chest pain. PT states this pain occurred approximately 30 minutes after he received his Clozaril dose of 275 mg. (PT did not receive a dose last evening and was given last evenings dose today @ 13:54). order desk caller notified and order obtained for Troponin and EKG. Order also obtained for Ativan- PT refused. VS stable @ 131/70, HR 124 and O2 99 on RA, respirations even and unlabored. Will continue to monitor.
[2021-08-13 16:56] LABS: Troponin-I High Sensitivity < 3.5 ng/L (<3.5-35.0)
[2021-08-13 20:23] VITALS: BP 115/57; PULSE 129; RESP 16; TEMP 36.6; O2SAT 99
[2021-08-14] MEDS: Nicotine 14 MG PATCH.TD24 TRANSDERMA (11:46)
[2021-08-14] MEDS: Nicotine Polacrilex 2 MG GUM BUCCAL ×2 (13:48→17:41)
[2021-08-14 17:42] VITALS: BP 136/74; PULSE 100
--- NOTE | 2021-08-14 18:07 | HO.PSYCHPN ---
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 EPS and dystonia are nearly fully resolved; will continue to monitor EPS/dystonia to see if any of it returns. 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 He was on benztropine 1 mg twice a day.? For now, I suggest continuing same dose of benztropine.? ? Increasing dose of medicine for tremor might result in dry mouth dizziness and confusion.? Instead, the antipsychotic with lower chance of similar complication is advised. 3.?Leukocytosis (SIRS): RESOLVED mildly febrile, elevated WBC, mildly tachy: due to Medication reaction (infectious process r./o): 07/20 pt mildly febrile 100.2, mildly tachy HR 92 with elevated WBC 51158; meets SIRS criteria Low-grade fever?-RESOLVED x 24+? hours Elevated WBCs -?wbc normal range with draw Lactic acidosis -?lactic acid in normal range ? blood draw No clear source of infection identified, patient is not septic CXR negative -NMS R/O UA: wnl other labs wnl covid/influenza/RSV Neg LDH: WNL I spent minutes with the patient and/or on the patient floor today, greater than?50% of which was spent counseling/coordinating care. Patient educated on: medication risk/benefits Informed Consent: further education needed Reason for contiued inpatient stay Substantial Risk for: rapid decompensation
--- NOTE | 2021-08-15 | ECG_ITS ---
Test Reason : chest pain Blood Pressure : / mmHG Vent. Rate : 121 BPM Atrial Rate : 121 BPM P-R Int : 124 ms QRS Dur : 072 ms QT Int : 304 ms P-R-T Axes : 056 080 -20 degrees QTc Int : 431 ms Sinus tachycardia T wave abnormality, consider inferior ischemia Abnormal ECG When compared with ECG of 13-AUG-2021 17:16, T wave inversion now evident in Inferior leads Referred By: Tatiana Camacho Electronically Signed By:IRMA MCADAMS MD
--- NOTE | 2021-08-15 12:15 | P.PNPSI_ITS ---
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 side-effects =patient off 1:1 as has been appropriate (pt has hx of being inappropriate with female staff); low threshold for restarting one-to-one 2. EPS/Dystonia: resolved -minor tremor in right hand ativan prn DC'd amantadine; pt refuses scheduled cogentin now prn; pt refuses scheduled Propranolol 10 mg t.i.d now prn, pt refuses scheduled. -Patient's EPS and dystonia are nearly fully resolved; will continue to monitor EPS/dystonia to see if any of it returns. 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 He was on benztropine 1 mg twice a day.? For now, I suggest continuing same dose of benztropine.? ? Increasing dose of medicine for tremor might result in dry mouth dizziness and confusion.? Instead, the antipsychotic with lower chance of similar complication is advised. 3.?Leukocytosis (SIRS): RESOLVED mildly febrile, elevated WBC, mildly tachy: due to Medication reaction (infectious process r./o): 07/20 pt mildly febrile 100.2, mildly tachy HR 92 with elevated WBC [id number]; meets SIRS criteria Low-grade fever?-RESOLVED x 24+? hours Elevated WBCs -?wbc normal range with draw Lactic acidosis -?lactic acid in normal range ? blood draw No clear source of infection identified, patient is not septic CXR negative -NMS R/O UA: wnl other labs wnl covid/influenza/RSV Neg [facility]: WNL I spent minutes with the patient and/or on the patient floor today, greater than?50% of which was spent counseling/coordinating care. Reason for contiued inpatient stay Substantial Risk for: inability to function
[2021-08-15] MEDS: Nicotine Polacrilex 2 MG GUM BUCCAL ×3 (12:37→18:14)
[2021-08-15 15:58] LABS: MANUAL DIFF FLAG NO
[2021-08-15 16:07] LABS: Basophils Absolute Auto 0.1 X10*3/uL (0.0-0.2); Basophils Percent Auto 1.1 % (0-2); Eosinophils Absolute Auto 0.7 X10*3/uL (0.0-0.4); Eosinophils Percent Auto 8.8 % (0-4); Hematocrit 44.2 % (42.0-52.0); Hemoglobin 15.3 g/dl (14.0-18.0); Imm Gran Abs Auto 0.05 X10*3/uL (0.00-0.03); Imm Gran Pct Auto 0.6 % (0.0-0.4); Lymphocytes Absolute Auto 1.7 X10*3/uL (1.2-4.9); Mean Corpuscular HGB Conc 34.6 g/dl (31.0-36.0); Mean Corpuscular Hemoglobin 31.4 pg (27.0-33.0); Mean Corpuscular Volume 90.8 fL (80.0-98.0); Mean Platelet Volume 9.3 fL (9.4-12.4); Monocytes Absolute Auto 0.6 X10*3/uL (0.1-1.2); Monocytes Percent Auto 7.3 % (2-11); Neutrophils Absolute Auto 4.7 x10*3/uL (2.0-8.3); Neutrophils Percent Auto 60.2 % (45-73); Platelet Count 197 X10*3/uL (160-400); Red Blood Count 4.87 X10*6/uL (4.60-5.80); White Blood Count 7.9 X10*3/uL (4.8-10.8)
[2021-08-15 18:00] VITALS: BP 132/86; PULSE 100
[2021-08-15 21:30] VITALS: BP 138/86; PULSE 113; TEMP 36.9; O2SAT 97
[2021-08-15 22:19] LABS: Troponin-I High Sensitivity < 3.5 ng/L (<3.5-35.0)
--- NOTE | 2021-08-16 09:40 | HO.PSYCHPN ---
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 08/11/21 FILED PETITION FOR INVOLUNTARY COMMITMENT q15min checks for now (low threshold for increasing to 5's or 1:1) 1. Schizoaffective DO: -Clozapine 275mg QHS (starting on 08/12/21) (will DC a.m. dose and added to p.m. dose since patient wants 1 time dosing at night; while this makes it difficult for a VNA, this medication is almost always given at bedtime given its sedating effect) pt agrees to trial of Clozapine including 1/week blood draws CBC w/ diff? weekly; registered pt in [facility] ordered Clozapine level (not sure why it was not drawn; will re-order) -literature recommends about 25 mg per day increasing dose; so far patient tolerates titration rate; denies side-effects =patient off 1:1 as has been appropriate (pt has hx of being inappropriate with female staff); low threshold for restarting one-to-one 2. EPS/Dystonia: resolved -minor tremor in right hand ativan prn DC'd amantadine; pt refuses scheduled cogentin now prn; pt refuses scheduled Propranolol 10 mg t.i.d now prn, pt refuses scheduled. -Patient's EPS and dystonia are nearly fully resolved; will continue to monitor EPS/dystonia to see if any of it returns. 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 He was on benztropine 1 mg twice a day.? For now, I suggest continuing same dose of benztropine.? ? Increasing dose of medicine for tremor might result in dry mouth dizziness and confusion.? Instead, the antipsychotic with lower chance of similar complication is advised. 3.?Leukocytosis (SIRS): RESOLVED mildly febrile, elevated WBC, mildly tachy: due to Medication reaction (infectious process r./o): 07/20 pt mildly febrile 100.2, mildly tachy HR 92 with elevated WBC 26231; meets SIRS criteria Low-grade fever?-RESOLVED x 24+? hours Elevated WBCs -?wbc normal range with draw Lactic acidosis -?lactic acid in normal range ? blood draw No clear source of infection identified, patient is not septic CXR negative -NMS R/O UA: wnl other labs wnl covid/influenza/RSV Neg [facility]: WNL I spent minutes with the patient and/or on the patient floor today, greater than?50% of which was spent counseling/coordinating care. Reason for contiued inpatient stay Substantial Risk for: inability to function
[2021-08-16] MEDS: Nicotine Polacrilex 2 MG GUM BUCCAL ×3 (12:43→19:07)
[2021-08-16 13:42] VITALS: BP 128/58; PULSE 141; TEMP 36.9
[2021-08-16 18:00] VITALS: BP 129/58; PULSE 109; RESP 16
--- NOTE | 2021-08-17 10:19 | P.PNPSI_ITS ---
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 dispo plan is yet stable enough for patient to remain safe in the community. This plan [facility] Patient wants to discharge home where he lives by himself in an apartment and does not want VNA. Mine Engineering Supervisor and team however agree that patient's history shows that prior to this, he needs to demonstrate that he can remain medication adherent and safe in the community. The that end, policy writer typist and team would like to see if there is a graduated planned that patient could get on, perhaps living in a jail for some designated time and then, if remaining on medications, pt could perhaps discharging back to his own apartment. If not that, perhaps patient could demonstrate his ability to remain safe by adhering to meeting with a VNA several times a week and after accomplishing this for some designated time could then graduate to taking his medications on his own. It is this policy writer typist's opinion that these issues need to be discussed and plan made prior to patient's discharge. Thus policy writer typist will file for involuntary commitment at this time. Team will continue to discuss whether or not patient requires a long-term psychiatric admission at a facility such as [facility]. Furthermore, a lthough patient's current ANC is within normal limits, it has been mildly, but steadily trending down. It is still well within normal limits however would like to continue to monitor here on the inpatient unit to make sure that it remains stable as policy writer typist is concerned about patients commitment to follow up. Would also like to get clozapine level as it is not always dose dependent. 08/17/21 Patient's team continued to evaluate and discuss case Following patient's most recent psychiatric discharge, he remained adherent with outpatient plan and 2 weeks post discharge, voluntarily went to get his next dose medication via long-acting injectable. This current hospitalization only occurred due to a medical issue for which patient was admitted to the medical floor. He was eventually transferred from the medical floor to the psychiatric floor, but this was only done for further treatment to mitigate EPS symptoms and in effort to safely reestablish him on antipsychotic medication during which time he could be continually evaluated. For although pt denied any psychiatric symptoms and was interacting appropriately, it was teams opinion that patient was at high risk to decompensate if were discharged prior to being started on a new antipsychotic medication; pt agreed and willingly signed a CV. Throughout patient's stay on psychiatric unit, he has continued to deny any psychiatric symptoms and although isolative and internally preoccupied, has not demonstrated any unsafe and has overall remained appropriate with peers and staff. He has willingly accepted trial and titration of a new antipsychotic medication which he has tolerated and agrees to continue taking. Team thus concluded that if patient were to agree to adhere with some specific parameters in the community, during which time he could demonstrate his ability to be reliable and safe, then he can be afforded another opportunity to demonstrate that he can live on his own in the community. Mine Engineering Supervisor and social staff worker Miracle Barraza discussed with and presented this to patient's mother Bernardo and John, patient's out reach worker. Bernardo said both options are great when policy writer typist presented the option of having patient stay at a jail or agree to VNA services for some determined amount of time to demonstrate his safety in the community. This policy writer typist strongly recommends patient have a VNA for 7 days a week for medication management for patient's stability and safety in the community (pt prefers this over jail). and Miracle Barraza (GABI) discussed this plan with outpatient casework specialist John and patient's mother Bernardo who both agree that if patient agrees to adhere to this plan (for no less than 1 month), he is currently appropriate for discharge and be afforded the opportunity to demonstrate he can remain safe in the community. Today, pt reports he is in good mood; denies psychotic symptoms, denies SI or HI and requests discharge. During today's family meeting with Filipe, Mine Engineering SupervisorGABI Chris and patients mother, Patient fully agreed to have a VNA for 7 days a week for 2 months (and agrees to weekly blood draws) during which time he will demonstrate he is committed to remaining safe in the community and adhering with medication. After this 2 months team will re-evaluate but if patient has been adherent they agree to discharge VNA and allow patient to continue taking his medications on his own. - patient's ANC remains stable. -today patient said that he prefers to increase Clozapine to 300 mg if it means he has to take a fewer number of pills per day 275= 3pills; 300mg=1 or 2 pills ( pt gets frightened when sees too many pills); patient remains internally preoccupied and self dialogueing, however his behaviors are otherwise in good control and appropriate and he presents as stable. That said, patient has a long history of discontinuing medications upon discharge and thus if increasing the dose to 300 mg would increase patient's adherence, policy writer typist's opinion that the potential benefit of patient's continued adherence far outweighs the potential risk of being at a slightly higher dose than needed PLAN: 3 Day submitted; FILED PETITION FOR INVOLUNTARY COMMITMENT however, pt agrees to VNA services to demonstrate his stability and reliability in the community and thus team a patient and family agreed to patient's discharge home; will thus dispense with petitionining court *This policy writer typist strongly recommends patient have a VNA for 7 days a week for medication management for patient's stability and safety in the community. -will set up VNA Services and discharge planned for 08/18 1. Schizoaffective DO: -Clozapine 275mg QHS (starting on 08/12/21) (will DC a.m. dose and added to p.m. dose since patient wants 1 time dosing at night; while this makes it difficult for a VNA, this medication is almost always given at bedtime given its sedating effect) -patient said that he prefers to increase Clozapine to 300 mg if it means he has to take a fewer number of pills per day 275= 3pills; 300mg=1 or 2 pills (pt gets frightened when sees too many pills); patient remains internally preoccupied and self dialogueing, however his behaviors are otherwise in good control and appropriate and he presents as stable. That said, patient has a long history of discontinuing medications upon discharge and thus if increasing the dose to 300 mg would increase patient's adherence, policy writer typist's opinion that the potential benefit of patient's continued adherence far outweighs the potential risk of being at a slightly higher dose than needed pt agrees to trial of Clozapine including 1/week blood draws *This policy writer typist strongly recommends patient have a VNA for 7 days a week for medication management for patient's stability and safety in the community. CBC w/ diff? weekly; registered pt in [facility] ordered Clozapine level (not sure why it was not drawn; will re-order) -literature recommends about 25 mg per day increasing dose; so far patient tolerates titration rate; denies side-effects =patient off 1:1 as has been appropriate (pt has hx of being inappropriate with female staff); low threshold for restarting one-to-one 2. EPS/Dystonia: resolved -minor tremor in right hand ativan prn DC'd amantadine; pt refuses scheduled cogentin now prn; pt refuses scheduled Propranolol 10 mg t.i.d now prn, pt refuses scheduled. -Patient's EPS and dystonia are nearly fully resolved; will continue to monitor EPS/dystonia to see if any of it returns. 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 He was on benztropine 1 mg twice a day.? For now, I suggest continuing same dose of benztropine.? ? Increasing dose of medicine for tremor might result in dry mouth dizziness and confusion.? Instead, the antipsychotic with lower chance of similar complication is advised. 3.?Leukocytosis (SIRS): RESOLVED mildly febrile, elevated WBC, mildly tachy: due to Medication reaction (infectious process r./o): 07/20 pt mildly febrile 100.2, mildly tachy HR 92 with elevated WBC 22013; meets SIRS criteria Low-grade fever?-RESOLVED x 24+? hours Elevated WBCs -?wbc normal range with draw Lactic acidosis -?lactic acid in normal range ? blood draw No clear source of infection identified, patient is not septic CXR negative -NMS R/O UA: wnl other labs wnl covid/influenza/RSV Neg LDH: WNL I spent minutes with the patient and/or on the patient floor today, greater than?50% of which was spent counseling/coordinating care. Reason for contiued inpatient stay Substantial Risk for: stable for discharge
[2021-08-17 15:17] LABS: Clozapine (Clozaril) 190
[2021-08-17 15:18] LABS: Norclozapine 119
[2021-08-17] MEDS: Nicotine Polacrilex 2 MG GUM BUCCAL ×2 (15:27→18:30)
[2021-08-17 15:28] VITALS: BP 135/62; PULSE 142; RESP 14; TEMP 37.1; O2SAT 95
[2021-08-17 18:30] VITALS: BP 127/80; PULSE 122; TEMP 37.1; O2SAT 96
[2021-08-18] MEDS: Nicotine Polacrilex 2 MG GUM BUCCAL ×3 (09:16→14:33)
--- NOTE | 2021-08-18 11:51 | P.DS_ITS ---
DS: Providers Provider Date of Service: 08/18/21 Date of admission: 07/18/21 14:30 Date of discharge: 08/18/21 Primary care physician: Unknown Physician Attending physician on admission: Clem Light Consults: 07/18/21 20:26 Consult to Neurology Routine Consulting Provider: [facility] Reason for consultation: ataxia, unsteady gait, tremors; leg weakness 07/21/21 10:31 Consult to Hospitalist Routine Consulting Provider: Hospitalist Reason For Exam: WBC 95650; temp 100.2 Attending physician on discharge: Clem Light DS: Diagnosis Discharge Diagnosis (1) Schizoaffective disorder, bipolar type: Status: Acute (2) Extrapyramidal symptom: Status: Acute (3) Acute dystonic reaction due to drugs: Status: Resolved DS: Medications Discharge Medications Home Medications: Previous Rx's Medication Instructions Recorded clonazepam 0.5 mg tablet 0.5 mg PO DAILY PRN 30 Days #20 08/18/21 tab clozapine 200 mg tablet (Clozaril) 200 mg PO BEDTIME 30 Days #30 tab 08/18/21 clozapine 25 mg tablet 25 mg PO DAILY 30 Days #30 tab 08/18/21 clozapine 50 mg tablet 50 mg PO BEDTIME 30 Days #30 tab 08/18/21 Mental Status Exam Mental Status Exam Narrative: t is alert and oriented; behavior calm and cooperative; he is dressed in hospital pants, T-shirt and jacket; mood is great affect calm; Speech with normal inflection; normal volume and prosody; thought process is organized, logical and goal directed though concrete; mild right-handed tremor. Thought content is on discharge; he denies SI/HI. He denies AVH or paranoid delusions; Patients insight is impaired in that patient has no insight into psychiatric illness or his need for medication however, judgment significantly improved as he agrees to VNA in the community to demonstrate his stability. Data Data Completed and Pending Completed studies during hospitalization [Text1]: 08/08/21 08/13/21 08/15/21 13:14 16:31 15:51 WBC 7.9 RBC 4.87 Hgb 15.3 Hct 44.2 MCV 90.8 MCH 31.4 MCHC 34.6 RDW 12.0 Plt Count 197 MPV 9.3 L Immature Gran % (Auto) 0.6 H Neut % (Auto) 60.2 Lymph % (Auto) 22.0 [place] % (Auto) 7.3 Eos % (Auto) 8.8 H Baso % (Auto) 1.1 Lymph # (Auto) 1.7 [place] # (Auto) 0.6 Eos # (Auto) 0.7 H Baso # (Auto) 0.1 Abs Immat Gran (auto) 0.05 H Absolute Neuts (auto) 4.7 Absolute Nucleated RBC 0.000 Nucleated RBC % (auto) 0.0 Troponin I High Sens < 3.5 Clozapine 190 Norclozapine 119 08/15/21 08/15/21 15:51 21:52 WBC RBC Hgb Hct MCV MCH MCHC RDW Plt Count MPV Immature Gran % (Auto) Neut % (Auto) Lymph % (Auto) [place] % (Auto) Eos % (Auto) Baso % (Auto) Lymph # (Auto) [place] # (Auto) Eos # (Auto) Baso # (Auto) Abs Immat Gran (auto) Absolute Neuts (auto) Absolute Nucleated RBC Nucleated RBC % (auto) Troponin I High Sens < 3.5 Clozapine Pending Norclozapine Pending 07/21/21 12:16 Blood - Venous Blood Culture - Final No growth after 5 days. 07/21/21 12:08 Blood - Venous Blood Culture - Final No growth after 5 days. Imaging Diagnostic Imaging Impressions Chest X-Ray 07/21/21 12:22 IMPRESSION: Unremarkable examination. DS: Summary Hospital Course Hospital Course: Complicated admission for complicated patient This is a 26-year-old male with past medical history of schizoaffective disorder, suicide attempt when psychotic and multiple admissions who presents from medical floor following treatment for extrapyramidal symptoms and acute dystonic reaction from administered DAS of fluphenazine decaonate of 100mg on 06/14. Pt has hx of multiple inpatient admissions for psychotic sx, orthodox preoccupation, command AH, impulsive and unsafe bx, paranoid ideations, and agitation. He was last admitted to [facility] after treatment for suicide attempt by self inflicted neck laceration; there he was started on Fluphenazine and subsequently given Prolixin Decanoate 100 mg on the unit and then another Prolixin 100 mg decanoate 2 weeks later as an outpatient. Soon after he developed severe dystonia and EPS symptoms and was hospitalized on the medical floor for treatment. On admission to medical floor pt was severely dystonic, rigid, with cogwheeling b/l arms/legs and parkinsonian tremor, unable to attend to ADL's without assistance, including eating, drinking, tolieting, standing or walking, difficulty talking and with a fixed stare. Zyprexa discontinued. Pt was treated with congentin and ativan; pt had some urinary retention which eventually cleared. Only when Amantadine was started, did his?dystonic/EPS symptoms start to make significant improvment; amanatidne was tritrated to 100mg BID. After about 2 weeks He was eventually medically stabilized and able to walk and attend to most ADLs on his own without assistance; however he still remained with acute dystonia and EPS symptoms requiring continued treatment to resolve these symptoms. Given his history of quickly decompensatong in the community, he was transferred to the psychiatric unit for continued treatment of the symptoms and so that another antipsychotic could be started for his safety and stability. While on the medical floor he was with organized speech and behavior, denying all psychiatric issues. He remained so throughout his admission on the psychiatric floor. In short summary, patients EPS symptoms and dystonia nearly fully resolved on amantadine which was eventually discontinued. Only a mild intermittent right hand tremor remained. Patient agreed to get on clozapine which he tolerated well and agreed to continue clozapine as an outpatient including getting weekly blood draws. Patient remained with organized speech behavior and although internally preoccupied, responding to internal stimuli, he otherwise interacted appropriately with peers and staff and was adherent with medication. However he remained with very little to no insight into his psychiatric condition. Patient's team thoroughly discussed his disposition with each other, colleagues, other psychiatrists and with patient's outpatient worker and his mother. Because of patient's poor insight and past history of medication nonadherence there was some consideration of applying to [facility] (though most recently, he did demonstrate adherence going to get DAS 2 weeks after his last admission to [facility]). Patient however said he understands why medical technical writer, social service assistant and his outpatient people, mother, are worried but he says that despite peoples worries, it's my life... and he should be able to live it.? He Acknowledges he has stopped medications in the past but says he will continue taking this medication on discharge and says this medication is not bother him.? Patient also said that he has a timer on his phone to remind him when to take his medication.?Patient also reminded medical technical writer that after he was discharged from the last hospital he continued to take his medications after discharge, even going to get his IM shot 2 weeks post discharge, which turned out to be the cause the side effect. Patient demonstrated insight into the conundrum regarding patients team, mother and field crop farmworker's concern that despite adherence on the unit, the worry is he'll stop taking them at some point after discharge, saying So if I keep taking my meds here and the problem is you don't trust me that all keep taking them, I am just going to be stuck here forever...? If I'm ever going to be able to leave you will have to trust me to take my medication...? If you don't ever trust me, I'll never leave... Patient's team continued to evaluate and discuss case. It is relevant that he remained adherent with outpatient plan and 2 weeks post discharge, voluntarily went to get his next dose medication via long-acting injectable.?And despite the fact that this current hospitalization only occurred due to a medical issue for which patient was admitted to the medical floor he voluntarily transferred to the psychiatric floor in effort to safely reestablish him on another an tipsychotic medication, despite his hx of severe side-effects. Throughout patient's stay on psychiatric unit, he has continued to deny any psychiatric symptoms and although isolative and internally preoccupied, did not demonstrated any unsafe behaviors and overall remained appropriate with peers and staff.? He has willingly accepted trial and titration of a new antipsychotic medication which he has tolerated and agrees to continue taking. Team thus concluded that if patient were to agree to adhere with some specific parameters in the community, during which time he could demonstrate his ability to be reliable and safe, then he can be afforded another opportunity to demonstrate that he can live on his own in the community.? Pneumatic Hoist Operator and social service assistant Miracle Barraza discussed with and presented this to patient's mother Bernardo and John, patient's out reach worker. Bernardo said both options are great when medical technical writer presented the option of having patient stay [place] a [place] or agree to VNA services for some determined amount of time to demonstrate his safety in the community. This medical technical writer strongly recommends patient have a VNA for 7 days a week for medication management for patient's stability and safety in the community (pt [place] over [place] [facility] [place]).? and Miracle Barraza (GABI) discussed this plan with outpatient renal case manager John and patient's mother Bernardo who both agree that if patient agrees to adhere to this plan (for no less than 1 month), he is currently appropriate for discharge and be afforded the opportunity to demonstrate he can remain safe in the community. Today, pt reports he is in good mood; denies psychotic symptoms, denies SI or HI and requests discharge.? During today's family meeting with Writer Dent SW, John and patients mother, Patient fully agreed to have a VNA for 7 days a week for 2 months (and agrees to weekly blood draws) during which time he will demonstrate he is committed to remaining safe in the community and adhering with medication .? After this 2 months team will re-evaluate but if patient has been adherent they agree to discharge VNA and allow patient to continue taking his medications on his own. Of note, regarding petition for involuntary commitment, medical technical writer consulted with securities attorney who said he's not committable in any kind of way. Patient is chronically a high risk patient at baseline and given his history, remains vulnerable to medication non adherence and to again be compensating and some point becoming unsafe however, medical technical writer and social service assistant agreed that patient is not in imminent risk for harm to self or others and does not meet criteria for involuntary commitment. Furthermore, as mentioned above both patient's mother and out reach worker John agree that patient is appropriate for discharge to the community given his willingness to me with a VNA. Patients request for discharge was honored. Medical issues: Patient had a bout of leukocytosis which was determined to be just a medication reaction and quickly resolved on its own Patient complained of intermittent chest pain; troponins always negative but EKGs were variable; this was discussed with legal file clerk and with patient. Patient did not want to remain on unit for further testing, but said he agreed to follow-up with his outpatient provider and expressed an eagerness to do so. Pneumatic Hoist Operator sent all EKG's during this admission to PCP. Time spent discussing smoking cessation with patient: 3 to 10 minutes Status at Discharge Functional status at discharge: independent ambulation Overall status at discharge: patient is back to baseline Time Spent with Patient Time attestation: Total time spent providing and/or coordinating discharge services: Time spent: Greater than 30 minutes Discharge Plan Discharge Patient Disposition: Home, Self-Care Discharge Diagnosis: Schizoaffective disorder, bipolar type Referrals: Visiting Nurse: Ayana Brooke [Other] - 08/18/21 3:30 pm [facility]Other[facility] - 1 Week Nicolas Godfrey MD [Physician] - 08/24/21 2:00 pm (IN OFFICE) Discharge Medications: New clozapine 25 mg tablet 25 mg PO BEDTIME 28 Days Qty: 28 0RF Rx Instructions: take at bedtime with 200mg tab and 50mg tab (for total of 275mg) clozapine 50 mg tablet 50 mg PO BEDTIME 28 Days Qty: 28 0RF Rx Instructions: take at bedtime with 200mg tab and 25mg tab (for total of 275mg) clozapine 200 mg tablet 200 mg PO BEDTIME 28 Days Qty: 28 0RF Rx Instructions: take at bedtime with 50mg tab and 25mg tab (for total of 275mg) clonazepam 0.5 mg tablet 0.5 mg PO DAILY PRN (Reason: anxiety) 30 Days Qty: 20 0RF Discontinued fluphenazine decanoate 25 mg/mL solution 100 mg IM Q14D 0RF benztropine 1 mg tablet 1 tab PO BID 0RF lorazepam 1 mg tablet 1 tab PO DAILY PRN (Reason: Anxiety) 0RF propranolol 10 mg Tablet 10 mg PO TID Qty: 90 0RF Protocol: Hold for SBP/HR < HOLD for SBP < : 90 HOLD for HR < : 60 Discharge Orders: Discharge Order (Routine); Ordered 08/18/21 Ordered By: Clem Light Diet: regular diet Activity on Discharge: As tolerated Stand Alone Forms: Patient Portal Discharge page, Community Support Other Ambulatory Orders: Complete Blood Count Auto Diff (Routine) Timeframe: [id number] Facility: [facility] - Location: Laboratory Ordered By: Clem Light Complete Blood Count Auto Diff (Routine) Timeframe: [id number] Facility: [facility] - Location: Laboratory Ordered By: Clem Light Care Plan Goals: Maintain mood and safe behaviors Take medications as prescribed Practice coping skills Continue with outpatient providers and reach out to them as needed Health Concerns: Mood stability and behaviors Intermittent Chest pain Plan of Treatment: Follow up with your PCP, psychiatric provider and regarding above concerns See your VNA every day to get medications Take medications as prescribed Assessment: Risk assessment at time of discharge:? Patient was interviewed prior to discharge and found to be fully oriented and without any SI or HI. Patient demonstrates improved judgment in terms of willingly pursuing treatment. Patient is not in imminent risk of harm to self or others and has a safety plan that includes presenting to the closest ER or calling 911 if feeling unsafe.? Patient has been observed closely by nursing and unit staff throughout admission; patient has not engaged in any behaviors that suggest dangerousness to self or others and has demonstrated appropriate behaviors and impulse control Discharge Date/Time: 08/18/21 14:43
--- NOTE | 2021-08-18 11:53 | HO.PSYCHPN ---
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 issue for which patient was admitted to the medical floor. He was eventually transferred from the medical floor to the psychiatric floor, but this was only done for further treatment to mitigate EPS symptoms and in effort to safely reestablish him on antipsychotic medication during which time he could be continually evaluated. For although pt denied any psychiatric symptoms and was interacting appropriately, it was teams opinion that patient was at high risk to decompensate if were discharged prior to being started on a new antipsychotic medication; pt agreed and willingly signed a CV. Throughout patient's stay on psychiatric unit, he has continued to deny any psychiatric symptoms and although isolative and internally preoccupied, has not demonstrated any unsafe and has overall remained appropriate with peers and staff. He has willingly accepted trial and titration of a new antipsychotic medication which he has tolerated and agrees to continue taking. Team thus concluded that if patient were to agree to adhere with some specific parameters in the community, during which time he could demonstrate his ability to be reliable and safe, then he can be afforded another opportunity to demonstrate that he can live on his own in the community. Call Center Consultant and foster care social worker Miracle Barraza discussed with and presented this to patient's mother Bernardo and John, patient's out reach worker. Bernardo said both options are great when marketing copywriter presented the option of having patient stay at a fpc or agree to VNA services for some determined amount of time to demonstrate his safety in the community. This marketing copywriter strongly recommends patient have a VNA for 7 days a week for medication management for patient's stability and safety in the community (pt prefers this over fpc). and Miracle Barraza () discussed this plan with outpatient shelter case manager John and patient's mother Bernardo who both agree that if patient agrees to adhere to this plan (for no less than 1 month), he is currently appropriate for discharge and be afforded the opportunity to demonstrate he can remain safe in the community. Today, pt reports he is in good mood; denies psychotic symptoms, denies SI or HI and requests discharge. During today's family meeting with Filipe, Call Center Consultant, John ASHLEY and patients mother, Patient fully agreed to have a VNA for 7 days a week for 2 months (and agrees to weekly blood draws) during which time he will demonstrate he is committed to remaining safe in the community and adhering with medication. After this 2 months team will re-evaluate but if patient has been adherent they agree to discharge VNA and allow patient to continue taking his medications on his own. - patient's ANC remains stable. -patient said that he prefers to increase Clozapine to 300 mg if it means he has to take a fewer number of pills per day 275= 3pills; 300mg=1 or 2 pills (pt gets frightened when sees too many pills); patient remains internally preoccupied and self dialogueing, however his behaviors are otherwise in good control and appropriate and he presents as stable. That said, patient has a long history of discontinuing medications upon discharge and thus if increasing the dose to 300 mg would increase patient's adherence. At 1st, it was marketing copywriter's opinion that the potential benefit of patient's continued adherence far outweighs the potential risk of being at a slightly higher dose than needed; however will defer this change until patient is able to meet with PCP/feed mill supervisor. -Of note, it is worth mentioning that regarding petition for involuntary commitment, marketing copywriter consulted with environmental attorney who said he's not committable in any kind of way. -It is marketing copywriter's opinion, after discussions with team, other psychiatrists and patient's outpatient worker and mother that patient is not in imminent risk for harm to self or others and is appropriate for discharge at this time. It is also noteworthy that despite patient's poor insight, his behaviors throughout his entire admission both on the medical floor and on psychiatric floor have remained significantly improved from his last admission. During this admission patient has remained in overall good behavioral and impulse control, with logical and organized thought process and behaviors, taking medications without issue. Though he is intermittently internally preoccupied, he is discreet about it. This is vastly improved from his past admission where for most of his stay he was floridly psychotic/manic, outwardly internally preoccupied and self dialoguing while walking up and down the hallways exhibiting bizarre behavior; he was also destructive of property, breaking and setting off fire alarms, intrusive, sexually inappropriate with female staff, trying to break out of the unit, yelling, climbing on furniture and overall out of control; only toward the end of this prior admission did patient calm down and get to a place where he was able to have appropriate behavioral control, however he remained outwardly internally preoccupied and self dialoguing. PLAN: 3 Day submitted; FILED PETITION FOR INVOLUNTARY COMMITMENT however, pt agrees to VNA services to demonstrate his stability and reliability in the community and thus team a patient and family agreed to patient's discharge home; will thus dispense with petitionining court *This marketing copywriter strongly recommends patient have a VNA for 7 days a week for medication management for patient's stability and safety in the community. -will set up VNA Services and discharge planned for 08/18 1. Schizoaffective DO: -Clozapine 275mg QHS (starting on 08/12/21) (will DC a.m. dose and added to p.m. dose since patient wants 1 time dosing at night; while this makes it difficult for a VNA, this medication is almost always given at bedtime given its sedating effect) -patient said that he prefers to increase Clozapine to 300 mg if it means he has to take a fewer number of pills per day 275= 3pills; 300mg=1 or 2 pills (pt gets frightened when sees too many pills); patient remains internally preoccupied and self dialogueing, however his behaviors are otherwise in good control and appropriate and he presents as stable. That said, patient has a long history of discontinuing medications upon discharge and thus if increasing the dose to 300 mg would increase patient's adherence, marketing copywriter's opinion that the potential benefit of patient's continued adherence far outweighs the potential risk of being at a slightly higher dose than needed pt agrees to trial of Clozapine including 1/week blood draws. Call Center Consultant recommends that this remain a consideration; however for now will leave it 275 mg until marketing copywriter can see PCP/feed mill supervisor. *This marketing copywriter strongly recommends patient have a VNA for 7 days a week for medication management for patient's stability and safety in the community. CBC w/ diff? weekly; registered pt in [facility] ordered Clozapine level (not sure why it was not drawn; will re-order) -literature recommends about 25 mg per day increasing dose; so far patient tolerates titration rate; denies side-effects =patient off 1:1 as has been appropriate (pt has hx of being inappropriate with female staff); low threshold for restarting one-to-one 2. EPS/Dystonia: resolved -minor tremor in right hand ativan prn DC'd amantadine; pt refuses scheduled cogentin now prn; pt refuses scheduled Propranolol 10 mg t.i.d now prn, pt refuses scheduled. -Patient's EPS and dystonia are nearly fully resolved; will continue to monitor EPS/dystonia to see if any of it returns. 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 He was on benztropine 1 mg twice a day.? For now, I suggest continuing same dose of benztropine.? ? Increasing dose of medicine for tremor might result in dry mouth dizziness and confusion.? Instead, the antipsychotic with lower chance of similar complication is advised. 3.?Leukocytosis (SIRS): RESOLVED mildly febrile, elevated WBC, mildly tachy: due to Medication reaction (infectious process r./o): 07/20 pt mildly febrile 100.2, mildly tachy HR 92 with elevated WBC 30345; meets SIRS criteria Low-grade fever?-RESOLVED x 24+? hours Elevated WBCs -?wbc normal range with draw Lactic acidosis -?lactic acid in normal range ? blood draw No clear source of infection identified, patient is not septic CXR negative -NMS R/O UA: wnl other labs wnl covid/influenza/RSV Neg LDH: WNL I spent minutes with the patient and/or on the patient floor today, greater than?50% of which was spent counseling/coordinating care. Reason for contiued inpatient stay Substantial Risk for: stable for discharge
--- NOTE | 2021-08-19 09:46 | PM.EVENT ---
Event Note Date of Service: 08/15/21 Event Note: Pt had incidence of tachycardia, HR 113, BP 138/86, otherwise vitals wnl. EKG and troponin ordered. Troponin <3.5 and EKG showed QTc 431 and sinus tachycardia. EKG was notable for t wave abnormality, however pt denied chest pain or other associated sx. He endorsed anxiety but declined PO ativan. Denied GI distress. He was redirectable and reported feeling calmer after EKG done. He was eventually able to fall asleep without further intervention.
[2021-08-19 14:31] LABS: Clozapine (Clozaril) 150 mcg/L; Norclozapine 128 mcg/L (25-400)
== END 2021-08-18 14:43 | disposition home or self-care (01) | DRG 750 ==
PROVIDERS: Hospitalist; Internal Medicine; Psychiatry & Neurology Psychiatry; Registered Nurse; Social Worker; Admitting Provider Psychiatry & Neurology Psychiatry; Visit Provider Psychiatry & Neurology Psychiatry
DX: F25.0 Schizoaffective disorder, bipolar type (principal); E87.2 Acidosis; R65.10 Systemic inflammatory response syndrome (SIRS) of non-infectious origin without acute organ dysfunction; G24.09 Other drug induced dystonia; T43.3X5A Adverse effect of phenothiazine antipsychotics and neuroleptics, initial encounter; Y92.9 Unspecified place or not applicable; D72.829 Elevated white blood cell count, unspecified; Z20.822 Contact with and (suspected) exposure to COVID-19; Z91.51 Personal history of suicidal behavior; Z87.891 Personal history of nicotine dependence; Z79.899 Other long term (current) drug therapy
CPT/HCPCS: 0241U; 36415; 71046; 80051; 80053; 80076; 80159; 81001; 82550; 82565; 83605; 83615; 83690; 84484; 84520; 85025; 85048; 87040; 87635; 93005; 97110; 97161; 97165

== ENCOUNTER 2021-08-23 10:28 | Outpatient (REF) | payer MEDICAID, SELFPAY ==
[2021-08-23 10:51] LABS: MANUAL DIFF FLAG NO
[2021-08-23 11:17] LABS: Basophils Absolute Auto 0.1 X10*3/uL (0.0-0.2); Basophils Percent Auto 0.9 % (0-2); Eosinophils Absolute Auto 0.4 X10*3/uL (0.0-0.4); Eosinophils Percent Auto 5.5 % (0-4); Hematocrit 43.9 % (42.0-52.0); Hemoglobin 15.1 g/dl (14.0-18.0); Imm Gran Abs Auto 0.04 X10*3/uL (0.00-0.03); Imm Gran Pct Auto 0.5 % (0.0-0.4); Lymphocytes Absolute Auto 1.7 X10*3/uL (1.2-4.9); Mean Corpuscular HGB Conc 34.4 g/dl (31.0-36.0); Mean Corpuscular Hemoglobin 31.1 pg (27.0-33.0); Mean Corpuscular Volume 90.3 fL (80.0-98.0); Mean Platelet Volume 9.5 fL (9.4-12.4); Monocytes Absolute Auto 0.7 X10*3/uL (0.1-1.2); Monocytes Percent Auto 8.7 % (2-11); Neutrophils Absolute Auto 4.9 x10*3/uL (2.0-8.3); Neutrophils Percent Auto 62.4 % (45-73); Platelet Count 219 X10*3/uL (160-400); Red Blood Count 4.86 X10*6/uL (4.60-5.80); Red Cell Distribution Width 12.2 % (11.0-16.0); White Blood Count 7.8 X10*3/uL (4.8-10.8)
== END 2021-08-23 10:29 | disposition home or self-care (01) ==
LOC: HO.LAB 10:28
PROVIDERS: Visit Provider Psychiatry & Neurology Psychiatry
DX: Z51.81 Encounter for therapeutic drug level monitoring (principal)
CPT/HCPCS: 36415; 85025

== ENCOUNTER 2021-08-30 11:29 | Outpatient (REF) | payer MEDICAID, SELFPAY ==
[2021-08-30 13:55] LABS: MANUAL DIFF FLAG NO
[2021-08-30 14:07] LABS: Basophils Absolute Auto 0.1 X10*3/uL (0.0-0.2); Basophils Percent Auto 0.9 % (0-2); Eosinophils Absolute Auto 0.6 X10*3/uL (0.0-0.4); Eosinophils Percent Auto 8.2 % (0-4); Hematocrit 43.5 % (42.0-52.0); Hemoglobin 14.6 g/dl (14.0-18.0); Imm Gran Abs Auto 0.04 X10*3/uL (0.00-0.03); Imm Gran Pct Auto 0.6 % (0.0-0.4); Lymphocytes Absolute Auto 1.6 X10*3/uL (1.2-4.9); Lymphocytes Percent Auto 24.4 % (20-40); Mean Corpuscular HGB Conc 33.6 g/dl (31.0-36.0); Mean Corpuscular Hemoglobin 30.7 pg (27.0-33.0); Mean Corpuscular Volume 91.4 fL (80.0-98.0); Mean Platelet Volume 9.9 fL (9.4-12.4); Monocytes Absolute Auto 0.5 X10*3/uL (0.1-1.2); Monocytes Percent Auto 7.8 % (2-11); Neutrophils Absolute Auto 3.9 x10*3/uL (2.0-8.3); Neutrophils Percent Auto 58.1 % (45-73); Platelet Count 225 X10*3/uL (160-400); Red Blood Count 4.76 X10*6/uL (4.60-5.80); Red Cell Distribution Width 12.5 % (11.0-16.0); White Blood Count 6.7 X10*3/uL (4.8-10.8)
== END 2021-08-30 11:30 | disposition home or self-care (01) ==
LOC: HO.10HDLR 11:29
PROVIDERS: Visit Provider Psychiatry & Neurology Psychiatry
DX: Z79.899 Other long term (current) drug therapy (principal)
CPT/HCPCS: 36415; 85025

== ENCOUNTER 2021-09-06 12:33 | Outpatient (REF) | payer MEDICAID, SELFPAY ==
[2021-09-06 13:49] LABS: MANUAL DIFF FLAG NO
[2021-09-06 13:56] LABS: Basophils Percent Auto 0.5 % (0-2); Eosinophils Absolute Auto 0.2 X10*3/uL (0.0-0.4); Eosinophils Percent Auto 2.2 % (0-4); Hematocrit 45.5 % (42.0-52.0); Hemoglobin 15.5 g/dl (14.0-18.0); Imm Gran Abs Auto 0.05 X10*3/uL (0.00-0.03); Imm Gran Pct Auto 0.6 % (0.0-0.4); Lymphocytes Absolute Auto 1.6 X10*3/uL (1.2-4.9); Lymphocytes Percent Auto 18.6 % (20-40); Mean Corpuscular HGB Conc 34.1 g/dl (31.0-36.0); Mean Corpuscular Hemoglobin 30.9 pg (27.0-33.0); Mean Corpuscular Volume 90.8 fL (80.0-98.0); Mean Platelet Volume 9.5 fL (9.4-12.4); Monocytes Absolute Auto 0.5 X10*3/uL (0.1-1.2); Monocytes Percent Auto 5.4 % (2-11); Neutrophils Absolute Auto 6.2 x10*3/uL (2.0-8.3); Neutrophils Percent Auto 72.7 % (45-73); Platelet Count 234 X10*3/uL (160-400); Red Blood Count 5.01 X10*6/uL (4.60-5.80); Red Cell Distribution Width 12.6 % (11.0-16.0); White Blood Count 8.5 X10*3/uL (4.8-10.8)
== END 2021-09-06 12:34 | disposition home or self-care (01) ==
LOC: HO.10HDL 12:33
PROVIDERS: Absent Provider Psychiatry & Neurology Psychiatry; Visit Provider Psychiatry & Neurology Psychiatry
DX: Z51.81 Encounter for therapeutic drug level monitoring (principal); Z79.899 Other long term (current) drug therapy
CPT/HCPCS: 36415; 85025

== ENCOUNTER 2021-09-13 11:07 | Outpatient (REF) | payer MEDICAID, SELFPAY ==
[2021-09-13 13:53] LABS: MANUAL DIFF FLAG NO
[2021-09-13 14:02] LABS: Basophils Absolute Auto 0.1 X10*3/uL (0.0-0.2); Basophils Percent Auto 1.1 % (0-2); Eosinophils Absolute Auto 0.2 X10*3/uL (0.0-0.4); Eosinophils Percent Auto 4.4 % (0-4); Hematocrit 47.5 % (42.0-52.0); Hemoglobin 16.2 g/dl (14.0-18.0); Imm Gran Abs Auto 0.02 X10*3/uL (0.00-0.03); Imm Gran Pct Auto 0.4 % (0.0-0.4); Lymphocytes Absolute Auto 1.9 X10*3/uL (1.2-4.9); Lymphocytes Percent Auto 34.1 % (20-40); Mean Corpuscular HGB Conc 34.1 g/dl (31.0-36.0); Mean Corpuscular Hemoglobin 31.6 pg (27.0-33.0); Mean Corpuscular Volume 92.6 fL (80.0-98.0); Mean Platelet Volume 9.8 fL (9.4-12.4); Monocytes Absolute Auto 0.5 X10*3/uL (0.1-1.2); Monocytes Percent Auto 8.2 % (2-11); Neutrophils Absolute Auto 2.8 x10*3/uL (2.0-8.3); Neutrophils Percent Auto 51.8 % (45-73); Platelet Count 218 X10*3/uL (160-400); Red Blood Count 5.13 X10*6/uL (4.60-5.80); Red Cell Distribution Width 12.8 % (11.0-16.0); White Blood Count 5.5 X10*3/uL (4.8-10.8)
== END 2021-09-13 11:08 | disposition home or self-care (01) ==
LOC: HO.10HDL 11:07
PROVIDERS: Visit Provider Psychiatry & Neurology Psychiatry
DX: Z79.899 Other long term (current) drug therapy (principal)
CPT/HCPCS: 36415; 85025

== ENCOUNTER 2021-09-20 13:20 | Outpatient (REF) | payer MEDICAID, SELFPAY ==
[2021-09-20 13:54] LABS: MANUAL DIFF FLAG NO
[2021-09-20 14:42] LABS: Basophils Absolute Auto 0.1 X10*3/uL (0.0-0.2); Basophils Percent Auto 0.5 % (0-2); Eosinophils Absolute Auto 0.2 X10*3/uL (0.0-0.4); Eosinophils Percent Auto 1.5 % (0-4); Hematocrit 43.4 % (42.0-52.0); Hemoglobin 14.9 g/dl (14.0-18.0); Imm Gran Abs Auto 0.08 X10*3/uL (0.00-0.03); Imm Gran Pct Auto 0.8 % (0.0-0.4); Lymphocytes Absolute Auto 2.3 X10*3/uL (1.2-4.9); Lymphocytes Percent Auto 22.7 % (20-40); Mean Corpuscular HGB Conc 34.3 g/dl (31.0-36.0); Mean Corpuscular Hemoglobin 31.2 pg (27.0-33.0); Mean Platelet Volume 9.6 fL (9.4-12.4); Monocytes Absolute Auto 0.6 X10*3/uL (0.1-1.2); Monocytes Percent Auto 6.1 % (2-11); Neutrophils Absolute Auto 6.9 x10*3/uL (2.0-8.3); Neutrophils Percent Auto 68.4 % (45-73); Platelet Count 226 X10*3/uL (160-400); Red Blood Count 4.77 X10*6/uL (4.60-5.80); Red Cell Distribution Width 12.4 % (11.0-16.0); White Blood Count 10.1 X10*3/uL (4.8-10.8)
== END 2021-09-20 13:21 | disposition home or self-care (01) ==
LOC: HO.LABR 13:20
PROVIDERS: PCP Internal Medicine; Visit Provider Psychiatry & Neurology Psychiatry
DX: Z79.899 Other long term (current) drug therapy (principal)
CPT/HCPCS: 36415; 85025

== ENCOUNTER 2021-09-29 10:11 | Outpatient (REF) | payer MEDICAID, SELFPAY ==
[2021-09-29 10:31] LABS: MANUAL DIFF FLAG NO
[2021-09-29 10:35] LABS: Basophils Absolute Auto 0.1 X10*3/uL (0.0-0.2); Basophils Percent Auto 0.9 % (0-2); Eosinophils Absolute Auto 0.3 X10*3/uL (0.0-0.4); Eosinophils Percent Auto 4.9 % (0-4); Hematocrit 47.8 % (42.0-52.0); Hemoglobin 16.4 g/dl (14.0-18.0); Imm Gran Abs Auto 0.02 X10*3/uL (0.00-0.03); Imm Gran Pct Auto 0.4 % (0.0-0.4); Lymphocytes Absolute Auto 1.9 X10*3/uL (1.2-4.9); Lymphocytes Percent Auto 34.7 % (20-40); Mean Corpuscular HGB Conc 34.3 g/dl (31.0-36.0); Mean Corpuscular Hemoglobin 31.4 pg (27.0-33.0); Mean Corpuscular Volume 91.4 fL (80.0-98.0); Mean Platelet Volume 9.2 fL (9.4-12.4); Monocytes Absolute Auto 0.4 X10*3/uL (0.1-1.2); Monocytes Percent Auto 6.7 % (2-11); Neutrophils Absolute Auto 2.9 x10*3/uL (2.0-8.3); Neutrophils Percent Auto 52.4 % (45-73); Platelet Count 186 X10*3/uL (160-400); Red Blood Count 5.23 X10*6/uL (4.60-5.80); Red Cell Distribution Width 12.2 % (11.0-16.0); White Blood Count 5.5 X10*3/uL (4.8-10.8)
== END 2021-09-29 10:12 | disposition home or self-care (01) ==
LOC: HO.10HDLR 10:11
PROVIDERS: Visit Provider Psychiatry & Neurology Psychiatry
DX: Z79.899 Other long term (current) drug therapy (principal)
CPT/HCPCS: 36415; 85025

== ENCOUNTER 2021-10-04 11:44 | Outpatient (REF) | payer MEDICAID, SELFPAY ==
[2021-10-04 13:58] LABS: MANUAL DIFF FLAG NO
[2021-10-04 14:01] LABS: Basophils Absolute Auto 0.1 X10*3/uL (0.0-0.2); Basophils Percent Auto 1.3 % (0-2); Eosinophils Absolute Auto 0.3 X10*3/uL (0.0-0.4); Eosinophils Percent Auto 5.3 % (0-4); Hematocrit 45.8 % (42.0-52.0); Hemoglobin 15.9 g/dl (14.0-18.0); Imm Gran Abs Auto 0.02 X10*3/uL (0.00-0.03); Imm Gran Pct Auto 0.4 % (0.0-0.4); Lymphocytes Absolute Auto 1.8 X10*3/uL (1.2-4.9); Lymphocytes Percent Auto 34.3 % (20-40); Mean Corpuscular HGB Conc 34.7 g/dl (31.0-36.0); Mean Corpuscular Hemoglobin 31.7 pg (27.0-33.0); Mean Corpuscular Volume 91.2 fL (80.0-98.0); Mean Platelet Volume 10.1 fL (9.4-12.4); Monocytes Absolute Auto 0.4 X10*3/uL (0.1-1.2); Monocytes Percent Auto 8.1 % (2-11); Neutrophils Absolute Auto 2.7 x10*3/uL (2.0-8.3); Neutrophils Percent Auto 50.6 % (45-73); Platelet Count 215 X10*3/uL (160-400); Red Blood Count 5.02 X10*6/uL (4.60-5.80); Red Cell Distribution Width 12.4 % (11.0-16.0); White Blood Count 5.3 X10*3/uL (4.8-10.8)
== END 2021-10-04 11:45 | disposition home or self-care (01) ==
LOC: HO.HMGCLDS 11:44
PROVIDERS: Psychiatry & Neurology Psychiatry; PCP Internal Medicine; Referring Provider Psychiatry & Neurology Psychiatry; Visit Provider Psychiatry & Neurology Psychiatry
DX: Z51.81 Encounter for therapeutic drug level monitoring (principal); Z79.899 Other long term (current) drug therapy
CPT/HCPCS: 36415; 85025

== ENCOUNTER 2021-10-11 11:31 | Outpatient (REF) | payer MEDICAID, SELFPAY ==
[2021-10-11 13:49] LABS: MANUAL DIFF FLAG NO
[2021-10-11 13:52] LABS: Basophils Absolute Auto 0.1 X10*3/uL (0.0-0.2); Basophils Percent Auto 0.7 % (0-2); Eosinophils Absolute Auto 0.2 X10*3/uL (0.0-0.4); Eosinophils Percent Auto 2.2 % (0-4); Hematocrit 46.4 % (42.0-52.0); Hemoglobin 16.1 g/dl (14.0-18.0); Imm Gran Abs Auto 0.02 X10*3/uL (0.00-0.03); Imm Gran Pct Auto 0.2 % (0.0-0.4); Lymphocytes Absolute Auto 1.9 X10*3/uL (1.2-4.9); Lymphocytes Percent Auto 22.8 % (20-40); Mean Corpuscular HGB Conc 34.7 g/dl (31.0-36.0); Mean Corpuscular Hemoglobin 31.4 pg (27.0-33.0); Mean Corpuscular Volume 90.6 fL (80.0-98.0); Mean Platelet Volume 10.2 fL (9.4-12.4); Monocytes Absolute Auto 0.6 X10*3/uL (0.1-1.2); Neutrophils Absolute Auto 5.7 x10*3/uL (2.0-8.3); Neutrophils Percent Auto 67.1 % (45-73); Platelet Count 240 X10*3/uL (160-400); Red Blood Count 5.12 X10*6/uL (4.60-5.80); Red Cell Distribution Width 12.3 % (11.0-16.0); White Blood Count 8.5 X10*3/uL (4.8-10.8)
== END 2021-10-11 11:32 | disposition home or self-care (01) ==
LOC: HO.HMGCLDS 11:31
PROVIDERS: Visit Provider Psychiatry & Neurology Psychiatry
DX: Z79.899 Other long term (current) drug therapy (principal)
CPT/HCPCS: 36415; 85025

== ENCOUNTER 2021-10-18 14:49 | Outpatient (REF) | payer MEDICAID, SELFPAY ==
[2021-10-18 16:52] LABS: MANUAL DIFF FLAG NO
[2021-10-18 16:57] LABS: Basophils Absolute Auto 0.1 X10*3/uL (0.0-0.2); Basophils Percent Auto 0.5 % (0-2); Eosinophils Absolute Auto 0.2 X10*3/uL (0.0-0.4); Eosinophils Percent Auto 1.7 % (0-4); Hematocrit 48.8 % (42.0-52.0); Hemoglobin 16.8 g/dl (14.0-18.0); Imm Gran Abs Auto 0.03 X10*3/uL (0.00-0.03); Imm Gran Pct Auto 0.3 % (0.0-0.4); Lymphocytes Absolute Auto 2.1 X10*3/uL (1.2-4.9); Lymphocytes Percent Auto 20.6 % (20-40); Mean Corpuscular HGB Conc 34.4 g/dl (31.0-36.0); Mean Corpuscular Hemoglobin 31.5 pg (27.0-33.0); Mean Corpuscular Volume 91.4 fL (80.0-98.0); Mean Platelet Volume 10.1 fL (9.4-12.4); Monocytes Absolute Auto 0.6 X10*3/uL (0.1-1.2); Monocytes Percent Auto 5.9 % (2-11); Neutrophils Absolute Auto 7.2 x10*3/uL (2.0-8.3); Platelet Count 227 X10*3/uL (160-400); Red Blood Count 5.34 X10*6/uL (4.60-5.80); Red Cell Distribution Width 12.1 % (11.0-16.0); White Blood Count 10.1 X10*3/uL (4.8-10.8)
== END 2021-10-18 14:50 | disposition home or self-care (01) ==
LOC: HO.HMGCLR 14:49
PROVIDERS: Visit Provider Psychiatry & Neurology Psychiatry
DX: Z79.899 Other long term (current) drug therapy (principal)
CPT/HCPCS: 36415; 85025

== ENCOUNTER 2021-10-25 13:34 | Outpatient (REF) | payer MEDICAID, SELFPAY ==
[2021-10-25 16:29] LABS: MANUAL DIFF FLAG NO
[2021-10-25 16:34] LABS: Basophils Absolute Auto 0.1 X10*3/uL (0.0-0.2); Basophils Percent Auto 1.1 % (0-2); Eosinophils Absolute Auto 0.2 X10*3/uL (0.0-0.4); Eosinophils Percent Auto 4.1 % (0-4); Hematocrit 47.3 % (42.0-52.0); Hemoglobin 16.2 g/dl (14.0-18.0); Lymphocytes Absolute Auto 1.9 X10*3/uL (1.2-4.9); Lymphocytes Percent Auto 35.5 % (20-40); Mean Corpuscular HGB Conc 34.2 g/dl (31.0-36.0); Mean Corpuscular Hemoglobin 31.3 pg (27.0-33.0); Mean Corpuscular Volume 91.5 fL (80.0-98.0); Mean Platelet Volume 10.1 fL (9.4-12.4); Monocytes Absolute Auto 0.4 X10*3/uL (0.1-1.2); Monocytes Percent Auto 6.5 % (2-11); Neutrophils Absolute Auto 2.8 x10*3/uL (2.0-8.3); Neutrophils Percent Auto 52.8 % (45-73); Platelet Count 198 X10*3/uL (160-400); Red Blood Count 5.17 X10*6/uL (4.60-5.80); Red Cell Distribution Width 12.2 % (11.0-16.0); White Blood Count 5.4 X10*3/uL (4.8-10.8)
== END 2021-10-25 13:35 | disposition home or self-care (01) ==
LOC: HO.HMGCLR 13:34
PROVIDERS: Visit Provider Psychiatry & Neurology Psychiatry
DX: Z79.899 Other long term (current) drug therapy (principal)
CPT/HCPCS: 36415; 85025

== ENCOUNTER 2021-11-02 12:34 | Outpatient (REF) | payer MEDICAID, SELFPAY ==
[2021-11-02 13:44] LABS: MANUAL DIFF FLAG NO
[2021-11-02 13:48] LABS: Basophils Absolute Auto 0.1 X10*3/uL (0.0-0.2); Basophils Percent Auto 0.9 % (0-2); Eosinophils Absolute Auto 0.2 X10*3/uL (0.0-0.4); Eosinophils Percent Auto 4.1 % (0-4); Hematocrit 43.9 % (42.0-52.0); Hemoglobin 15.3 g/dl (14.0-18.0); Imm Gran Abs Auto 0.02 X10*3/uL (0.00-0.03); Imm Gran Pct Auto 0.4 % (0.0-0.4); Lymphocytes Absolute Auto 1.7 X10*3/uL (1.2-4.9); Lymphocytes Percent Auto 31.7 % (20-40); Mean Corpuscular HGB Conc 34.9 g/dl (31.0-36.0); Mean Corpuscular Hemoglobin 31.5 pg (27.0-33.0); Mean Corpuscular Volume 90.3 fL (80.0-98.0); Monocytes Absolute Auto 0.4 X10*3/uL (0.1-1.2); Monocytes Percent Auto 7.1 % (2-11); Neutrophils Percent Auto 55.8 % (45-73); Platelet Count 187 X10*3/uL (160-400); Red Blood Count 4.86 X10*6/uL (4.60-5.80); Red Cell Distribution Width 11.9 % (11.0-16.0); White Blood Count 5.4 X10*3/uL (4.8-10.8)
== END 2021-11-02 12:35 | disposition home or self-care (01) ==
LOC: HO.HMGCLR 12:34
PROVIDERS: Visit Provider Psychiatry & Neurology Psychiatry
DX: Z79.899 Other long term (current) drug therapy (principal)
CPT/HCPCS: 36415; 85025

== ENCOUNTER 2021-11-08 13:17 | Outpatient (REF) | payer MEDICAID, SELFPAY ==
[2021-11-08 16:50] LABS: MANUAL DIFF FLAG NO
[2021-11-08 16:54] LABS: Basophils Percent Auto 0.8 % (0-2); Eosinophils Absolute Auto 0.2 X10*3/uL (0.0-0.4); Eosinophils Percent Auto 4.5 % (0-4); Hematocrit 44.9 % (42.0-52.0); Hemoglobin 15.6 g/dl (14.0-18.0); Imm Gran Abs Auto 0.01 X10*3/uL (0.00-0.03); Imm Gran Pct Auto 0.2 % (0.0-0.4); Lymphocytes Absolute Auto 1.8 X10*3/uL (1.2-4.9); Lymphocytes Percent Auto 35.1 % (20-40); Mean Corpuscular HGB Conc 34.7 g/dl (31.0-36.0); Mean Corpuscular Hemoglobin 31.1 pg (27.0-33.0); Mean Corpuscular Volume 89.6 fL (80.0-98.0); Mean Platelet Volume 10.5 fL (9.4-12.4); Monocytes Absolute Auto 0.4 X10*3/uL (0.1-1.2); Monocytes Percent Auto 7.8 % (2-11); Neutrophils Absolute Auto 2.7 x10*3/uL (2.0-8.3); Neutrophils Percent Auto 51.6 % (45-73); Platelet Count 214 X10*3/uL (160-400); Red Blood Count 5.01 X10*6/uL (4.60-5.80); Red Cell Distribution Width 11.9 % (11.0-16.0); White Blood Count 5.2 X10*3/uL (4.8-10.8)
== END 2021-11-08 13:18 | disposition home or self-care (01) ==
LOC: HO.HMGCLR 13:17
PROVIDERS: Visit Provider Psychiatry & Neurology Psychiatry
DX: Z79.899 Other long term (current) drug therapy (principal)
CPT/HCPCS: 36415; 85025

== ENCOUNTER 2021-11-15 12:00 | Outpatient (REF) | payer MEDICAID, SELFPAY ==
[2021-11-15 14:10] LABS: MANUAL DIFF FLAG NO
[2021-11-15 14:15] LABS: Basophils Absolute Auto 0.1 X10*3/uL (0.0-0.2); Basophils Percent Auto 1.2 % (0-2); Eosinophils Absolute Auto 0.2 X10*3/uL (0.0-0.4); Eosinophils Percent Auto 4.1 % (0-4); Hematocrit 45.6 % (42.0-52.0); Hemoglobin 15.9 g/dl (14.0-18.0); Imm Gran Abs Auto 0.02 X10*3/uL (0.00-0.03); Imm Gran Pct Auto 0.4 % (0.0-0.4); Lymphocytes Absolute Auto 1.8 X10*3/uL (1.2-4.9); Mean Corpuscular HGB Conc 34.9 g/dl (31.0-36.0); Mean Corpuscular Hemoglobin 31.1 pg (27.0-33.0); Mean Corpuscular Volume 89.1 fL (80.0-98.0); Mean Platelet Volume 10.4 fL (9.4-12.4); Monocytes Absolute Auto 0.3 X10*3/uL (0.1-1.2); Monocytes Percent Auto 6.4 % (2-11); Neutrophils Absolute Auto 2.7 x10*3/uL (2.0-8.3); Neutrophils Percent Auto 52.9 % (45-73); Platelet Count 194 X10*3/uL (160-400); Red Blood Count 5.12 X10*6/uL (4.60-5.80); Red Cell Distribution Width 11.9 % (11.0-16.0); White Blood Count 5.2 X10*3/uL (4.8-10.8)
== END 2021-11-15 12:01 | disposition home or self-care (01) ==
LOC: HO.HMGCLDS 12:00
PROVIDERS: PCP Internal Medicine; Visit Provider Psychiatry & Neurology Psychiatry
DX: Z79.899 Other long term (current) drug therapy (principal)
CPT/HCPCS: 36415; 85025

== ENCOUNTER 2021-12-08 17:19 | Emergency (ER) | payer MEDICAID, SELFPAY ==
[2021-12-08 17:47] VITALS: BP 126/58; PULSE 133; RESP 28; TEMP 36.1; O2SAT 99; BMI 20.3
--- NOTE | 2021-12-08 19:01 | ED.ANXIETY ---
HPI - Anxiety General Chief Complaint: Anxiety Stated Complaint: panic attack diff breathing Time Seen by Provider: 12/08/21 18:55 Source: patient Mode of arrival: ambulatory Limitations: no limitations History of Present Illness HPI narrative: Patient history of anxiety and panic attack on Klonopin and clozapine ran out of his medications had marijuana earlier today feeling having a panic attack Related Data Previous Rx's Medication Instructions Recorded clonazepam 0.5 mg tablet 0.5 mg PO DAILY PRN 30 Days #20 tab 08/18/21 clozapine 200 mg tablet 200 mg PO BEDTIME 28 Days #28 tab 08/18/21 clozapine 25 mg tablet 25 mg PO BEDTIME 28 Days #28 tab 08/18/21 clozapine 50 mg tablet 50 mg PO BEDTIME 28 Days #28 tab 08/18/21 clonazepam 0.5 mg tablet 0.5 mg PO DAILY PRN #7 tab 12/08/21 Allergies Allergy/AdvReac Type Severity Reaction Status Date / Time diphenhydramine Allergy Unknown unknown Verified 10/12/20 04:33 [From BENADRYL] haloperidol [From HALDOL] Allergy Unknown unknown Verified 10/12/20 04:33 paliperidone AdvReac Severe dystonia Verified 03/30/21 23:47 Review of Systems Review of Systems: Yes all other systems are reviewed and are negative PMFSH Past Medical History Medical History Anxiety Schizoaffective disorder, bipolar type Surgical History No pertinent past surgical history Social History Social History Household Members: Family and None Housing: House Housing Other:: retirement Do you presently have visiting nurse or other home services: No Unable to assess alcohol history related to: Unknown Alcohol intake: unknown Patient Tobacco Use Status: Former Tobacco user Quit Date: 07/18/21 Tobacco use type: Cigarette Cigarette Packs Per Day: 1 Cigarettes Per Day: 20.0 Years Smoked: 8 Second Hand Smoke Exposure: No Substance Use Type: Marijuana Advance Directives: No Advance Directives Information Provided: Yes service: No Current occupational status: disabled Sexual orientation: Did not discuss Physical Exam Vital Signs: Vital Signs: Last Vital Signs Temp 97 F 12/08/21 17:47 Pulse 133 H 12/08/21 17:47 Resp 28 H 12/08/21 17:47 BP 126/58 L 12/08/21 17:47 Pulse Ox 99 12/08/21 17:47 BMI result Body Mass Index 20.3 Appearance: Alert. Oriented X3. No acute distress. Eyes: PERRLA, ENT: Pharynx normal. Oral Mucosa moist Neck: Normal inspection. Neck supple. CVS: Normal heart rate and rhythm. Pulses normal. Respiratory: No respiratory distress. Equal air entry bilateral, no wheezing/rales/rhonchi Abdomen: Soft and nontender. Bowel sounds are present, no mass palpable, Skin: Skin warm and dry. Normal skin color. Normal skin turgor. Extremities: No lower extremity edema. No calf tenderness Neuro: Oriented X 3. Discharge Plan Discharge Clinical Impression: Acute anxiety Patient Disposition: Home, Self-Care Instructions: Anxiety (ED) Additional Instructions: Follow-up with your psychiatrist and take your anxiety medication daily as needed Prescriptions: New clonazepam 0.5 mg tablet 0.5 mg PO DAILY PRN (Reason: anxiety) Qty: 7 0RF No Action clozapine 25 mg tablet 25 mg PO BEDTIME 28 Days Qty: 28 0RF Rx Instructions: take at bedtime with 200mg tab and 50mg tab (for total of 275mg) clozapine 50 mg tablet 50 mg PO BEDTIME 28 Days Qty: 28 0RF Rx Instructions: take at bedtime with 200mg tab and 25mg tab (for total of 275mg) clozapine 200 mg tablet 200 mg PO BEDTIME 28 Days Qty: 28 0RF Rx Instructions: take at bedtime with 50mg tab and 25mg tab (for total of 275mg) clonazepam 0.5 mg tablet 0.5 mg PO DAILY PRN (Reason: anxiety) 30 Days Qty: 20 0RF
[2021-12-08] MEDS: clonazePAM 0.5 MG TABLET PO (19:46)
[2021-12-08 19:52] VITALS: BP 111/60; PULSE 81; RESP 16; TEMP 36.5; O2SAT 96
== END 2021-12-08 20:10 | disposition home or self-care (01) ==
PROVIDERS: Emergency Provider Internal Medicine; PCP Internal Medicine
DX: F41.9 Anxiety disorder, unspecified (principal); F17.210 Nicotine dependence, cigarettes, uncomplicated; Z71.6 Tobacco abuse counseling; Z79.899 Other long term (current) drug therapy
CPT/HCPCS: 99283

== ENCOUNTER 2021-12-26 20:07 | Emergency (ER) | payer MEDICAID, SELFPAY ==
--- NOTE | ~2021-12-26 | XR_ITS ---
EXAMINATION: XR CHEST CLINICAL INFORMATION: Chest pain COMPARISON: 07/21/2021 TECHNIQUE: Frontal view of the chest was obtained. FINDINGS: No significant abnormality is noted involving the heart, lungs, mediastinum, bony thorax or soft tissues. XR/XR chest 1V IMPRESSION: Unremarkable examination.
[2021-12-26 20:18] VITALS: PULSE 103; PULSE 106; RESP 24; TEMP 36.8; O2SAT 100; BMI 20.5
--- NOTE | 2021-12-26 20:33 | ECG_ITS ---
Test Reason : CHEST PAIN Blood Pressure : / mmHG Vent. Rate : 088 BPM Atrial Rate : 088 BPM P-R Int : 128 ms QRS Dur : 076 ms QT Int : 350 ms P-R-T Axes : 068 083 054 degrees QTc Int : 423 ms Normal sinus rhythm with sinus arrhythmia Normal ECG When compared with ECG of 15-AUG-2021 21:44, Non-specific change in ST segment in Inferior leads T wave inversion no longer evident in Inferior leads Referred By: Miah Villar Electronically Signed By:LACHO KERR
--- NOTE | 2021-12-26 20:52 | ED.GENADULT ---
HPI - General Adult General Chief complaint: Dyspnea Stated complaint: cp Time Seen by Provider: 12/26/21 20:28 Source: patient Mode of arrival: ambulatory Limitations: no limitations History of Present Illness HPI narrative: 26-year-old male presents to ED for chest pain. Patient states having chest pain . Patient states feeling anxious. Patient states history of anxiety but did not take his anxiety meds. Patient denies any leg pain, calf swelling, coughing up blood, fever, chills, drug use, recent long travel, recent surgery, pleuretic chest pain, history of PE/DVT or any other concerning symptoms. Patient states he feels anixous. Patient states chest pain is similiar to previous anixety attacks. Related Data Previous Rx's Medication Instructions Recorded clonazepam 0.5 mg tablet 0.5 mg PO DAILY PRN 30 Days #20 tab 08/18/21 clozapine 200 mg tablet 200 mg PO BEDTIME 28 Days #28 tab 08/18/21 clozapine 25 mg tablet 25 mg PO BEDTIME 28 Days #28 tab 08/18/21 clozapine 50 mg tablet 50 mg PO BEDTIME 28 Days #28 tab 08/18/21 clonazepam 0.5 mg tablet 0.5 mg PO DAILY PRN #7 tab 12/08/21 Allergies Allergy/AdvReac Type Severity Reaction Status Date / Time diphenhydramine Allergy Unknown unknown Verified 10/12/20 04:33 [From BENADRYL] haloperidol [From HALDOL] Allergy Unknown unknown Verified 10/12/20 04:33 paliperidone AdvReac Severe dystonia Verified 03/30/21 23:47 Review of Systems Review of Systems: chest pain. anxiety Yes all other systems are reviewed and are negative [facility] Past Medical History Medical History Anxiety Schizoaffective disorder, bipolar type Surgical History No pertinent past surgical history Social History Social History Household Members: Family and None Housing: House Housing Other:: [facility] Do you presently have visiting nurse or other home services: No Unable to assess alcohol history related to: Unknown Alcohol intake: unknown Patient Tobacco Use Status: Former Tobacco user Quit Date: 07/18/21 Tobacco use type: Cigarette Cigarette Packs Per Day: 1 Cigarettes Per Day: 20.0 Years Smoked: 8 Second Hand Smoke Exposure: No Substance Use Type: Marijuana Advance Directives: No Advance Directives Information Provided: No service: No Current occupational status: disabled Sexual orientation: Did not discuss Physical Exam ED Vital Signs: Vital Signs - 24 hr 12/26/21 20:18 12/26/21 21:03 12/26/21 21:38 Temperature 98.2 F Pulse Rate 106 H 90 84 Respiratory Rate 24 H 19 22 H Blood Pressure 128/55 L Pulse Oximetry 100 100 100 12/26/21 22:55 12/26/21 23:14 Temperature Pulse Rate 85 83 Respiratory Rate 21 H 24 H Blood Pressure 143/76 H Pulse Oximetry 98 98 BMI result Body Mass Index 20.5 Const General: cooperative, healthy appearing, comfortable, no acute distress, well developed, alert, awake and Physically active Orientation/consciousness: oriented to time and patient oriented x3 HENMT Head: Yes normal to inspection, Yes No palpable skull fracture present, Yes normocephalic, Yes atraumatic and No abrasion Eyes General: appearance normal, both eyes and all related structures Neck Neck: Yes normal visual inspection, Yes full ROM, Yes no lymphadenopathy, Yes no meningeal signs, Yes trachea midline, Yes supple, No anterior neck swelling and No tender Chest Chest palpation & inspection: normal inspection of the chest and normal palpation of entire chest wall Resp Effort & Inspection: normal respiratory effort and able to speak in complete sentences Auscultation: clear to auscultation bilaterally Cardio Jugular venous distension: no JVD Heart sounds: S1 normal heart sound present and S2 normal heart sound present GI Inspection: Yes normal to inspection and No abdominal wall ecchymosis Palpation (GI): Soft to palpation, not firm, nontender, no guarding and not rigid General: No CVA tenderness and Yes no CVA tenderness Back/Spine/Pelvis Back: no CVA tenderness, No CVA tenderness and No back tenderness Skin General skin exam: no rashes or lesions noted and elasticity normal Neuro General: oriented to time, patient oriented x3, gait normal, no meningeal signs and CN's II-XI intact bilaterally Cranial nerves: Yes CN's II-XII intact bilaterally Extrem Other: Lower extremity negative for swelling, pitting edema, calf tenderness Psych Other: Anxious Appearance: grossly normal, well kempt and not disheveled Course Course Course Narrative: Most likely anxiety but will do labs and cardiac evaluation also chest x-ray. COVID swab ordered. Ativan ordered Reevaluation(s) Reevaluation #1: Patient's chest pain resolved after receiving Ativan. Two troponins negative. EKG negative STEMI. Not suspecting pulmonary embolus. Patient denies any chest pain on inspiration, coughing up blood, calf pain, ankle swelling, recent long travel, recent surgery, recent trauma, estrogen hormonal use, or history of DVT/PE. Patient will follow-up with primary care provider. COVID influenza negative. Chest x-ray normal Time: 00:06 Medical Decision Making MDM Narrative Medical decision making narrative: ANxiety, atypical chest pain Lab Data Result diagrams: 12/26/21 21:14 12/26/21 21:14 Labs: Lab Results 12/26/21 12/26/21 12/26/21 Range/Units 21:14 21:14 21:14 WBC 11.1 H (4.8-10.8) X10*3/uL RBC 4.98 (4.60-5.80) X10*6/uL Hgb 15.3 (14.0-18.0) g/dl Hct 43.1 (42.0-52.0) % MCV 86.5 (80.0-98.0) fL MCH 30.7 (27.0-33.0) pg MCHC 35.5 (31.0-36.0) g/dl RDW 13.2 (11.0-16.0) % Plt Count 191 (160-400) X10*3/uL MPV 9.5 (9.4-12.4) fL Immature Gran % (Auto) 0.4 (0.0-0.4) % Neut % (Auto) 74.8 H (45-73) % Lymph % (Auto) 17.0 L (20-40) % [place] % (Auto) 5.9 (2-11) % Eos % (Auto) 1.3 (0-4) % Baso % (Auto) 0.6 (0-2) % Lymph # (Auto) 1.9 (1.2-4.9) X10*3/uL [place] # (Auto) 0.7 (0.1-1.2) X10*3/uL Eos # (Auto) 0.1 (0.0-0.4) X10*3/uL Baso # (Auto) 0.1 (0.0-0.2) X10*3/uL Abs Immat Gran (auto) 0.04 H (0.00-0.03) X10*3/uL Absolute Neuts (auto) 8.3 (2.0-8.3) x10*3/uL Absolute Nucleated RBC 0.000 (0.0-0.012) X10*3/uL Nucleated RBC % (auto) 0.0 (0.0-0.2) /100WBC PT 11.6 (9.9-13.0) SEC INR 1.0 (0.9-1.1) APTT 32.1 (24.1-38.0) SEC Sodium 137 (135-145) mmol/L Potassium 3.4 (3.3-5.1) mmol/L Chloride 106 (96-108) mmol/L Carbon Dioxide 18 L (22-29) mmol/L Anion Gap 16 (12-20) BUN 17 H (9-16) mg/dL Creatinine 1.20 (0.5-1.4) mg/dL Estim Creat Clear Calc 98.1 Estimated GFR > 60 Random Glucose 89 (60-115) mg/dL Calcium 8.9 D (8.4-10.2) mg/dL Total Bilirubin 0.9 (0.0-1.0) mg/dL AST 87 H (5-37) U/L ALT 36 (0-40) U/L Alkaline Phosphatase 71 (39-117) U/L Troponin I High Sens (<3.5-35.0) ng/L B-Natriuretic Peptide (<100) pg/mL Total Protein 6.9 (6.5-8.0) g/dL Albumin 4.6 (3.5-5.0) g/dL COVID-19 (ALAN) (Negative) COVID-19 Clin Com Influenza Type A (ANA) (Negative) Influenza Type B (ANA) (Negative) Influenza A & B Note 12/26/21 12/26/21 12/26/21 Range/Units 21:14 21:14 22:52 WBC (4.8-10.8) X10*3/uL RBC (4.60-5.80) X10*6/uL Hgb (14.0-18.0) g/dl Hct (42.0-52.0) % MCV (80.0-98.0) fL MCH (27.0-33.0) pg MCHC (31.0-36.0) g/dl RDW (11.0-16.0) % Plt Count (160-400) X10*3/uL MPV (9.4-12.4) fL Immature Gran % (Auto) (0.0-0.4) % Neut % (Auto) (45-73) % Lymph % (Auto) (20-40) % [place] % (Auto) (2-11) % Eos % (Auto) (0-4) % Baso % (Auto) (0-2) % Lymph # (Auto) (1.2-4.9) X10*3/uL [place] # (Auto) (0.1-1.2) X10*3/uL Eos # (Auto) (0.0-0.4) X10*3/uL Baso # (Auto) (0.0-0.2) X10*3/uL Abs Immat Gran (auto) (0.00-0.03) X10*3/uL Absolute Neuts (auto) (2.0-8.3) x10*3/uL Absolute Nucleated RBC (0.0-0.012) X10*3/uL Nucleated RBC % (auto) (0.0-0.2) /100WBC PT (9.9-13.0) SEC INR (0.9-1.1) APTT (24.1-38.0) SEC Sodium (135-145) mmol/L Potassium (3.3-5.1) mmol/L Chloride (96-108) mmol/L Carbon Dioxide (22-29) mmol/L Anion Gap (12-20) BUN (9-16) mg/dL Creatinine (0.5-1.4) mg/dL Estim Creat Clear Calc Estimated GFR Random Glucose (60-115) mg/dL Calcium (8.4-10.2) mg/dL Total Bilirubin (0.0-1.0) mg/dL AST (5-37) U/L ALT (0-40) U/L Alkaline Phosphatase (39-117) U/L Troponin I High Sens < 3.5 (<3.5-35.0) ng/L B-Natriuretic Peptide < 10 (<100) pg/mL Total Protein (6.5-8.0) g/dL Albumin (3.5-5.0) g/dL COVID-19 (ALAN) (Negative) COVID-19 Clin Com Influenza Type A (ANA) Negative (Negative) Influenza Type B (ANA) Negative (Negative) Influenza A & B Note See Note 12/26/21 12/26/21 Range/Units 22:52 23:29 WBC (4.8-10.8) X10*3/uL RBC (4.60-5.80) X10*6/uL Hgb (14.0-18.0) g/dl Hct (42.0-52.0) % MCV (80.0-98.0) fL MCH (27.0-33.0) pg MCHC (31.0-36.0) g/dl RDW (11.0-16.0) % Plt Count (160-400) X10*3/uL MPV (9.4-12.4) fL Immature Gran % (Auto) (0.0-0.4) % Neut % (Auto) (45-73) % Lymph % (Auto) (20-40) % [place] % (Auto) (2-11) % Eos % (Auto) (0-4) % Baso % (Auto) (0-2) % Lymph # (Auto) (1.2-4.9) X10*3/uL [place] # (Auto) (0.1-1.2) X10*3/uL Eos # (Auto) (0.0-0.4) X10*3/uL Baso # (Auto) (0.0-0.2) X10*3/uL Abs Immat Gran (auto) (0.00-0.03) X10*3/uL Absolute Neuts (auto) (2.0-8.3) x10*3/uL Absolute Nucleated RBC (0.0-0.012) X10*3/uL Nucleated RBC % (auto) (0.0-0.2) /100WBC PT (9.9-13.0) SEC INR (0.9-1.1) APTT (24.1-38.0) SEC Sodium (135-145) mmol/L Potassium (3.3-5.1) mmol/L Chloride (96-108) mmol/L Carbon Dioxide (22-29) mmol/L Anion Gap (12-20) BUN (9-16) mg/dL Creatinine (0.5-1.4) mg/dL Estim Creat Clear Calc Estimated GFR Random Glucose (60-115) mg/dL Calcium (8.4-10.2) mg/dL Total Bilirubin (0.0-1.0) mg/dL AST (5-37) U/L ALT (0-40) U/L Alkaline Phosphatase (39-117) U/L Troponin I High Sens < 3.5 (<3.5-35.0) ng/L B-Natriuretic Peptide (<100) pg/mL Total Protein (6.5-8.0) g/dL Albumin (3.5-5.0) g/dL COVID-19 (ALAN) Negative (Negative) COVID-19 Clin Com See Note Influenza Type A (ANA) (Negative) Influenza Type B (ANA) (Negative) Influenza A & B Note ECG Data Interpretation: Normal sinus rhythm. Ventricular rate 88. Pr interval 128. QRS 70 6p QTC 423. Negative STEMI Discharge Plan Discharge Clinical Impression: Atypical chest pain Patient Disposition: Home, Self-Care Instructions: Chest Pain (ED) Additional Instructions: Your blood work, EKG, chest x-ray, COVID, influenza came back normal. Please follow-up with the primary care provider. Return to the ED for any shortness of breath, worsening chest pain, leg swelling, calf pain, coughing up blood, chest pain on inspiration, or any other concerning symptoms. Prescriptions: No Action clozapine 25 mg tablet 25 mg PO BEDTIME 28 Days Qty: 28 0RF Rx Instructions: take at bedtime with 200mg tab and 50mg tab (for total of 275mg) clozapine 50 mg tablet 50 mg PO BEDTIME 28 Days Qty: 28 0RF Rx Instructions: take at bedtime with 200mg tab and 25mg tab (for total of 275mg) clozapine 200 mg tablet 200 mg PO BEDTIME 28 Days Qty: 28 0RF Rx Instructions: take at bedtime with 50mg tab and 25mg tab (for total of 275mg) clonazepam 0.5 mg tablet 0.5 mg PO DAILY PRN (Reason: anxiety) 30 Days Qty: 20 0RF clonazepam 0.5 mg tablet 0.5 mg PO DAILY PRN (Reason: anxiety) Qty: 7 0RF Stand Alone Forms: Work/School Release Interventions: ED Discharge Assessment Last Done: 12/27/21 00:19 Discharge Date/Time: 12/27/21 00:37 Print Language: Bulgarian
[2021-12-26 21:03] VITALS: BP 128/55; PULSE 90; RESP 19; O2SAT 100
[2021-12-26 21:20] LABS: MANUAL DIFF FLAG NO
[2021-12-26 21:22] LABS: Basophils Absolute Auto 0.1 X10*3/uL (0.0-0.2); Basophils Percent Auto 0.6 % (0-2); Eosinophils Absolute Auto 0.1 X10*3/uL (0.0-0.4); Eosinophils Percent Auto 1.3 % (0-4); Hematocrit 43.1 % (42.0-52.0); Hemoglobin 15.3 g/dl (14.0-18.0); Imm Gran Abs Auto 0.04 X10*3/uL (0.00-0.03); Imm Gran Pct Auto 0.4 % (0.0-0.4); Lymphocytes Absolute Auto 1.9 X10*3/uL (1.2-4.9); Mean Corpuscular HGB Conc 35.5 g/dl (31.0-36.0); Mean Corpuscular Hemoglobin 30.7 pg (27.0-33.0); Mean Corpuscular Volume 86.5 fL (80.0-98.0); Mean Platelet Volume 9.5 fL (9.4-12.4); Monocytes Absolute Auto 0.7 X10*3/uL (0.1-1.2); Monocytes Percent Auto 5.9 % (2-11); Neutrophils Absolute Auto 8.3 x10*3/uL (2.0-8.3); Neutrophils Percent Auto 74.8 % (45-73); Platelet Count 191 X10*3/uL (160-400); Red Blood Count 4.98 X10*6/uL (4.60-5.80); Red Cell Distribution Width 13.2 % (11.0-16.0); White Blood Count 11.1 X10*3/uL (4.8-10.8)
[2021-12-26 21:28] LABS: Prothrombin Time 11.6 SEC (9.9-13.0)
[2021-12-26 21:31] LABS: Partial Thromboplastin Time 32.1 SEC (24.1-38.0)
[2021-12-26] MEDS: LORazepam 2 MG/ML VIAL 1 MG IVPUSH (21:35)
[2021-12-26 21:38] VITALS: PULSE 84; RESP 22; O2SAT 100
[2021-12-26 21:40] LABS: Alanine Aminotransferase 36 U/L (0-40); Albumin Level 4.6 g/dL (3.5-5.0); Alkaline Phosphatase 71 U/L (39-117); Anion Gap 16 (12-20); Aspartate Amino Transferase 87 U/L (5-37); Bilirubin Total 0.9 mg/dL (0.0-1.0); Blood Urea Nitrogen 17 mg/dL (9-16); Calcium 8.9 mg/dL (8.4-10.2); Carbon Dioxide 18 mmol/L (22-29); Chloride 106 mmol/L (96-108); Creatinine Clr Calc Pharmacy 98.1; Estimated Glomerular Filt Rate > 60; Glucose Random 89 mg/dL (60-115); Potassium 3.4 mmol/L (3.3-5.1); Sodium 137 mmol/L (135-145); Total Protein 6.9 g/dL (6.5-8.0)
[2021-12-26 21:43] LABS: Troponin-I High Sensitivity < 3.5 ng/L (<3.5-35.0)
[2021-12-26 21:44] LABS: B Type Natriuretic Peptide < 10 pg/mL (<100)
--- NOTE | 2021-12-26 22:23 | PC.NURSE ---
pt was restless, tachypnea standing up at foot of bed prior to ativan admin, pt reassured, ativan admin, family at bedside. pt resting comfortably in bed, family member at bedside. pt reports being in [facility] yesterday, couldnt find car, and reports walking around for a long time looking/ pt asking to take a shower, pt was told not at this time as there are none in ER. pt reassured that labs and VS are WNL. pt given a turkey sandwich per request.
[2021-12-26 22:55] VITALS: BP 143/76; PULSE 85; RESP 21; O2SAT 98
[2021-12-26 23:14] VITALS: PULSE 83; RESP 24; O2SAT 98
[2021-12-26 23:18] LABS: Influenza A Negative (Negative); Influenza B2 Negative (Negative)
[2021-12-26 23:25] LABS: COVID-19 Test Negative (Negative); IDNOW Serial# 55D5AD1C
--- NOTE | 2021-12-26 23:47 | PC.NURSE ---
pt reports feeling better, asking to leave. PA notified who ordered repeat trop. pt made aware and reassured. friend at bedside
[2021-12-26 23:54] LABS: Troponin-I High Sensitivity < 3.5 ng/L (<3.5-35.0)
== END 2021-12-27 00:37 | disposition home or self-care (01) ==
PROVIDERS: Physician Assistant; Emergency Provider Internal Medicine; PCP Internal Medicine
DX: R07.89 Other chest pain (principal); Z20.822 Contact with and (suspected) exposure to COVID-19; F41.9 Anxiety disorder, unspecified; F25.0 Schizoaffective disorder, bipolar type; Z79.899 Other long term (current) drug therapy; Z87.891 Personal history of nicotine dependence
CPT/HCPCS: 36415; 71045; 80053; 83880; 84484; 85025; 85610; 85730; 87502; 87635; 93005; 96374; 99284; J2060

== ENCOUNTER 2022-01-03 14:39 | Emergency (ER) | payer MEDICAID, SELFPAY ==
--- NOTE | ~2022-01-03 | CT_ITS ---
EXAMINATION: CT HEAD WITHOUT CONTRAST CLINICAL INFORMATION: Syncopal episode. COMPARISON: None TECHNIQUE: Contiguous axial imaging was performed from the skull base to vertex without intravenous administration of contrast. This CT examination was performed using dose optimization techniques as appropriate, variously including the following: *Automated exposure control *Adjustment of mA and/or kV according to patient size (this includes techniques or standardized protocols for targeted exams where dose is matched to indication/reason for exam; i.e. extremities or head) *Use of iterative reconstruction technique DLP: 673 mGy-cm FINDINGS: There is no evidence of acute intracranial hemorrhage or territorial infarction. No abnormal mass effect or midline shift is seen. To to white matter differentiation is well preserved. No extra-axial fluid collections are identified. The ventricles are normal in size. There is no abnormal attenuation within the brain parenchyma. The osseous structures and soft tissues are normal. The mastoid air cells and visualized portions of the paranasal sinuses are well aerated. CT/CT head/brain wo con IMPRESSION: No acute intracranial process seen
[2022-01-03 14:55] VITALS: BP 104/39; BP 120/74; PULSE 52; PULSE 54; RESP 20; TEMP 37.2; O2SAT 100; O2SAT 98; BMI 21.7
[2022-01-03 15:06] LABS: MANUAL DIFF FLAG NO
[2022-01-03 15:08] LABS: Basophils Absolute Auto 0.1 X10*3/uL (0.0-0.2); Basophils Percent Auto 0.6 % (0-2); Eosinophils Absolute Auto 0.1 X10*3/uL (0.0-0.4); Eosinophils Percent Auto 1.1 % (0-4); Hematocrit 42.1 % (42.0-52.0); Hemoglobin 14.8 g/dl (14.0-18.0); Imm Gran Abs Auto 0.03 X10*3/uL (0.00-0.03); Imm Gran Pct Auto 0.3 % (0.0-0.4); Lymphocytes Absolute Auto 1.9 X10*3/uL (1.2-4.9); Lymphocytes Percent Auto 17.6 % (20-40); Mean Corpuscular HGB Conc 35.2 g/dl (31.0-36.0); Mean Corpuscular Hemoglobin 30.8 pg (27.0-33.0); Mean Corpuscular Volume 87.7 fL (80.0-98.0); Mean Platelet Volume 9.2 fL (9.4-12.4); Monocytes Absolute Auto 0.6 X10*3/uL (0.1-1.2); Monocytes Percent Auto 5.4 % (2-11); Platelet Count 213 X10*3/uL (160-400); Red Cell Distribution Width 13.2 % (11.0-16.0); White Blood Count 10.6 X10*3/uL (4.8-10.8)
[2022-01-03 15:25] LABS: Anion Gap 11 (12-20); Blood Urea Nitrogen 16 mg/dL (9-16); Calcium 8.8 mg/dL (8.4-10.2); Carbon Dioxide 22 mmol/L (22-29); Chloride 108 mmol/L (96-108); Creatinine Clr Calc Pharmacy 122.5; Estimated Glomerular Filt Rate > 60; Glucose Random 98 mg/dL (60-115); Potassium 3.8 mmol/L (3.3-5.1); Sodium 137 mmol/L (135-145)
--- NOTE | 2022-01-03 16:19 | PC.NURSE ---
pt was asleep in [place]. wakes easliy. ambulates with steady gait. reports a little anxiety. pt is calm. denies SI at this time.
[2022-01-03 16:20] VITALS: BP 91/41; PULSE 67; RESP 18; TEMP 36.8; O2SAT 98
--- NOTE | 2022-01-03 16:47 | ECG_ITS ---
Test Reason : DIZZINESS Blood Pressure : / mmHG Vent. Rate : 057 BPM Atrial Rate : 057 BPM P-R Int : 154 ms QRS Dur : 094 ms QT Int : 400 ms P-R-T Axes : 068 078 043 degrees QTc Int : 389 ms Sinus bradycardia with marked sinus arrhythmia Otherwise normal ECG When compared with ECG of 26-DEC-2021 20:52, Vent. rate has decreased BY 31 BPM Referred By: Kayley Miranda Electronically Signed By:IRMA MCADAMS MD
[2022-01-03 16:48] LABS: Appearance Urine CLEAR; Color Urine YELLOW; Glucose Urine UA NEG (NEG); Leukocyte Esterase Urine NEG (NEG); Nitrite Urine NEG (NEG); Specific Gravity - Urine 1.025 (1.005-1.025); Urine Blood NEG (NEG); Urine Ketones NEG (NEG); Urine Protein TRACE MG/DL (NEG-TRACE)
--- NOTE | 2022-01-03 16:49 | ED_ITS ---
HPI - Syncope General Chief Complaint: Dizziness Stated Complaint: ANXIOUS PER EMS Time Seen by Provider: 01/03/22 16:29 Source: patient Mode of arrival: ambulatory Limitations: no limitations History of Present Illness HPI narrative: 26-year-old male past medical history significant for schizoaffective disorder, bipolar type presents to the emergency department complaints of dizziness, vomiting, shortness of breath, palpitations and frequent syncopal episodes over the past week worsening. Patient tells me that this is been going on over the past week, he tells me he randomly, suddenly feels weak, dizzy and like he is going to fall to the ground. He tells me he does not always fall however he has had a few episodes of syncope. He tells me he has lost consciousness a few times, he thinks he has not hit his head. He also reports that he has had a few episodes of vomiting. Patient describes dizziness as disequilibrium. He tells me gets all these symptoms and then syncopized this is, this is never happened to him before. He also is reporting that he has anxiety however he does not think that this is related to his anxiety. At this time he denies chest pain, nausea, vomiting, diarrhea, abdominal pain, weakness. Patient is reporting dizziness at this time. No known personal or family cardiac hx. MD complaint: loss of consciousness Onset (ago): week(s) (1) Prodromal symptoms: lightheaded, palpitations and nausea/vomiting Witnessed: No Context: at rest and during exertion Injuries sustained associated with event: none Current symptoms: lightheaded Treatments prior to arrival: none Related Data Previous Rx's Medication Instructions Recorded clonazepam 0.5 mg tablet 0.5 mg PO DAILY PRN anxiety 30 08/18/21 days #20 tabs clozapine 200 mg tablet 200 mg PO BEDTIME 28 days #28 tabs 08/18/21 clozapine 25 mg tablet 25 mg PO BEDTIME 28 days #28 tabs 08/18/21 clozapine 50 mg tablet 50 mg PO BEDTIME 28 days #28 tabs 08/18/21 clonazepam 0.5 mg tablet 0.5 mg PO DAILY PRN anxiety #7 tabs 12/08/21 Allergies Allergy/AdvReac Type Severity Reaction Status Date / Time diphenhydramine Allergy Unknown unknown Verified 10/12/20 04:33 [From BENADRYL] haloperidol [From HALDOL] Allergy Unknown unknown Verified 10/12/20 04:33 paliperidone AdvReac Severe dystonia Verified 03/30/21 23:47 Review of Systems Review of Systems: Constitutional : No Weight loss, No Fever, No Chills, No Fatigue, No Malaise ENT/Mouth : No sore throat, No Rhinorrhea Eyes: No Eye Pain, No Swelling, No Redness Cardiovascular : No Chest Pain, No SOB, No Dyspnea on Exertion, No Orthopnea, No Edema, No Palpitations Respiratory : No Cough, No Sputum, No Wheezing Gastrointestinal : No Nausea, No Vomiting, No Diarrhea, No Constipation, No abdominal Pain, No Hematochezia, No Melena Genitourinary : No Dysuria, No Urinary Frequency, No Hematuria, Musculoskeletal : No joint pain, No Myalgias, No Joint Swelling Skin : No Skin Lesions, No rash Neuro : No Weakness, No Numbness, + Dizziness, No Headache All other systems reviewed and are negative Yes all other systems are reviewed and are negative [facility] Past Medical History Attestation statement: The following information was validated with the patient. Source: old records reviewed and nursing notes reviewed Medical History Anxiety Schizoaffective disorder, bipolar type Surgical History No pertinent past surgical history Social History Social History Household Members: Family and None Housing: House Housing Other:: half-way Do you presently have visiting nurse or other home services: No Unable to assess alcohol history related to: Unknown Alcohol intake: unknown Patient Tobacco Use Status: Former Tobacco user Quit Date: 07/18/21 Tobacco use type: Cigarette Cigarette Packs Per Day: 1 Cigarettes Per Day: 20.0 Years Smoked: 8 Second Hand Smoke Exposure: No Substance Use Type: Marijuana Advance Directives: No Advance Directives Information Provided: No service: No Current occupational status: disabled Sexual orientation: Did not discuss Physical Exam Vital Signs: Vital Signs: Last Vital Signs Temp 98.3 F 01/03/22 16:20 Pulse 61 01/03/22 20:55 Resp 18 01/03/22 16:20 BP 91/49 L 01/03/22 20:55 Pulse Ox 98 01/03/22 16:20 O2 Del Method 01/03/22 16:20 BMI result Body Mass Index 21.7 Vital signs significant for hypotension. Appearance: Alert.? Oriented X3.? No acute distress.? Head: Normocephalic, atraumatic, no step-offs or deformities Eyes: Pupils equal, round and reactive to light.? ENT: Pharynx normal.? Neck: Normal inspection.? Neck supple.? CVS: Normal heart rate and rhythm.? Pulses normal.? Respiratory: No respiratory distress.? Breath sounds normal.? Abdomen: Soft and nontender.? Skin: Skin warm and dry.? Normal skin color.? Normal skin turgor.? Extremities: No lower extremity edema.? No calf ttp. 5/5 strength to bilateral upper and lower extremities Back: No midline tenderness, no C-spine tenderness, full range of motion, no CVA tenderness bilaterally Neuro: Oriented X 3.? No motor deficit.? No sensory deficit. CN 2-12 intact . Normal [id number], [id number], steady tandem gait. Course Reevaluation(s) Reevaluation #1: CBC within normal limits. Chemistry with no acute electrolyte abnormalities requiring intervention, lipase within normal limits. Urine clean for infection. Urine toxicology positive for marijuana. Ethanol negative. COVID negative. CT of the head pending. Orthostatics vitals pending patient is reporting dizziness with movement. EKG with sinus bradycardia, rate 57. Time: 19:18 Reevaluation #2: CT of the head with no acute intracranial process seen. Patient tells me he is feeling much better, dizziness has subsided. He will receive a 2 L of fluids than orthostatic vital signs will be done. Time: 20:38 Reevaluation #3: Orthostatic vital signs negative after hydration. Initially patient was complaining of dizziness associated with movement. Patient tells me he is feeling a lot better no longer dizzy. At this time I will discharge him home with prompt PCP follow-up. At time of discharge patient common cooperative no acute distress. Vital signs stable. He denies SI, HI and any psych complaints. Comfortable w/ discharge Time: 21:26 MDM - Syncope MDM Narrative Medical decision making narrative: 1652 26 yo male presents with multiple syncopal episodes x1 week. Preceding symptoms include palpitations, dizziness, weakness, shortness of breath. His only reporting dizziness/disequilibrium at this time. Physical examination benign. Normal cerebellar function. Based off patient history and physical examination likely orthostatic hypotension, BPPV, hypotension causing dizziness. I do not suspect posterior infarct. Plan at this time is to rule out electrolyte abnormalities, drug screen, EKG, orthostatic vital signs, hydration, head CT. I have also rule out intracranial pathology. I do not suspect infection. Medical Records Attestation: I reviewed the patient's medical records. Lab Data Attestation: I reviewed the patient's lab results. Result diagrams: 01/03/22 15:02 01/03/22 15:02 Labs: Lab Results 01/03/22 01/03/22 01/03/22 Range/Units 15: 15:02 16:39 WBC 10.6 (4.8-10.8) X10*3/uL RBC 4.80 (4.60-5.80) X10*6/uL Hgb 14.8 (14.0-18.0) g/dl Hct 42.1 (42.0-52.0) % MCV 87.7 (80.0-98.0) fL MCH 30.8 (27.0-33.0) pg MCHC 35.2 (31.0-36.0) g/dl RDW 13.2 (11.0-16.0) % Plt Count 213 (160-400) X10*3/uL MPV 9.2 L (9.4-12.4) fL Immature Gran % (Auto) 0.3 (0.0-0.4) % Neut % (Auto) 75.0 H (45-73) % Lymph % (Auto) 17.6 L (20-40) % Dickinson % (Auto) 5.4 (2-11) % Eos % (Auto) 1.1 (0-4) % Baso % (Auto) 0.6 (0-2) % Lymph # (Auto) 1.9 (1.2-4.9) X10*3/uL Dickinson # (Auto) 0.6 (0.1-1.2) X10*3/uL Eos # (Auto) 0.1 (0.0-0.4) X10*3/uL Baso # (Auto) 0.1 (0.0-0.2) X10*3/uL Abs Immat Gran (auto) 0.03 (0.00-0.03) X10*3/uL Absolute Neuts (auto) 8.0 (2.0-8.3) x10*3/uL Absolute Nucleated RBC 0.000 (0.0-0.012) X10*3/uL Nucleated RBC % (auto) 0.0 (0.0-0.2) /100WBC Sodium 137 (135-145) mmol/L Potassium 3.8 (3.3-5.1) mmol/L Chloride 108 (96-108) mmol/L Carbon Dioxide 22 (22-29) mmol/L Anion Gap 11 L (12-20) BUN 16 (9-16) mg/dL Creatinine 1.02 (0.5-1.4) mg/dL Estim Creat Clear Calc 122.5 Estimated GFR > 60 Random Glucose 98 (60-115) mg/dL Calcium 8.8 (8.4-10.2) mg/dL Lipase 69 (8-78) U/L Urine Color Urine Appearance Urine pH (5.0-8.0) Ur Specific Glasgow (1.005-1.025) Urine Protein (NEG-TRACE) MG/DL Urine Glucose (UA) (NEG) MG/DL Urine Ketones (NEG) MG/DL Urine Blood (NEG) Urine Nitrite (NEG) Ur Leukocyte Esterase (NEG) Urine Opiates Screen (Not Detect) Urine Fentanyl Screen (Not Detect) Ur Barbiturates Screen (Not Detect) Ur Phencyclidine Scrn (Not Detect) Ur Amphetamines Screen (Not Detect) U Benzodiazepines Scrn (Not Detect) Urine Cocaine Screen (Not Detect) U Marijuana (THC) Screen (Not Detect) Ethyl Alcohol mg/dL COVID-19 (ALAN) Negative (Negative) COVID-19 Clin Com See Note 01/03/22 01/03/22 01/03/22 Range/Units 16:39 16:39 17:17 WBC (4.8-10.8) X10*3/uL RBC (4.60-5.80) X10*6/uL Hgb (14.0-18.0) g/dl Hct (42.0-52.0) % MCV (80.0-98.0) fL MCH (27.0-33.0) pg MCHC (31.0-36.0) g/dl RDW (11.0-16.0) % Plt Count (160-400) X10*3/uL MPV (9.4-12.4) fL Immature Gran % (Auto) (0.0-0.4) % Neut % (Auto) (45-73) % Lymph % (Auto) (20-40) % Dickinson % (Auto) (2-11) % Eos % (Auto) (0-4) % Baso % (Auto) (0-2) % Lymph # (Auto) (1.2-4.9) X10*3/uL Dickinson # (Auto) (0.1-1.2) X10*3/uL Eos # (Auto) (0.0-0.4) X10*3/uL Baso # (Auto) (0.0-0.2) X10*3/uL Abs Immat Gran (auto) (0.00-0.03) X10*3/uL Absolute Neuts (auto) (2.0-8.3) x10*3/uL Absolute Nucleated RBC (0.0-0.012) X10*3/uL Nucleated RBC % (auto) (0.0-0.2) /100WBC Sodium (135-145) mmol/L Potassium (3.3-5.1) mmol/L Chloride (96-108) mmol/L Carbon Dioxide (22-29) mmol/L Anion Gap (12-20) BUN (9-16) mg/dL Creatinine (0.5-1.4) mg/dL Estim Creat Clear Calc Estimated GFR Random Glucose (60-115) mg/dL Calcium (8.4-10.2) mg/dL Lipase (8-78) U/L Urine Color YELLOW Urine Appearance CLEAR Urine pH 6.0 (5.0-8.0) Ur Specific Glasgow 1.025 (1.005-1.025) Urine Protein TRACE (NEG-TRACE) MG/DL Urine Glucose (UA) NEG (NEG) MG/DL Urine Ketones NEG (NEG) MG/DL Urine Blood NEG (NEG) Urine Nitrite NEG (NEG) Ur Leukocyte Esterase NEG (NEG) Urine Opiates Screen Not Detected (Not Detect) Urine Fentanyl Screen Not Detected (Not Detect) Ur Barbiturates Screen Not Detected (Not Detect) Ur Phencyclidine Scrn Not Detected (Not Detect) Ur Amphetamines Screen Not Detected (Not Detect) U Benzodiazepines Scrn Not Detected (Not Detect) Urine Cocaine Screen Not Detected (Not Detect) U Marijuana (THC) Screen POSITIVE H (Not Detect) Ethyl Alcohol < 10 mg/dL COVID-19 (ALAN) (Negative) COVID-19 Clin Com ECG Data Attestation: I personally reviewed and interpreted this ECG as follows: ECG interpretation date: 01/03/22 ECG interpretation time: 20:39 Prior ECG tracings: available for review Interpretation: Ventricular rate of 57, ND normal, QRS normal, QT/QTC normal. EKG shows normal sinus bradycardia with marked sinus arrhythmia, no ST elevations or inversions concerning for ischemia. When compared to EKG of December 2021 patient has had a significant decrease in ventricular rate. Critical Care Time Critical Care Time Critical Care Time: No Discharge Plan Discharge Clinical Impression: Bradycardia, Hypotension, Dizziness Patient Disposition: Home, Self-Care Instructions: Bradycardia (ED), Dizziness (ED), Hypotension (ED) Additional Instructions: Take your medications as prescribed. If you were prescribed antibiotics today, it is important that you take your medication to their entirety, do not skip any doses, do not finish them early. Follow-up with your primary care provider this week. Return to the emergency department with new or worsening symptoms. Such as fevers, chills, chest pain, shortness of breath, nausea, vomiting, dizziness, headache, vision changes, lethargy In case of emergency call 911 Drink plenty of fluids. When changing positions please do so slowly. Follow up with primary care provider this week Prescriptions: No Action clozapine 25 mg tablet 25 mg PO BEDTIME 28 Days Qty: 28 0RF Rx Instructions: take at bedtime with 200mg tab and 50mg tab (for total of 275mg) clozapine 50 mg tablet 50 mg PO BEDTIME 28 Days Qty: 28 0RF Rx Instructions: take at bedtime with 200mg tab and 25mg tab (for total of 275mg) clozapine 200 mg tablet 200 mg PO BEDTIME 28 Days Qty: 28 0RF Rx Instructions: take at bedtime with 50mg tab and 25mg tab (for total of 275mg) clonazepam 0.5 mg tablet 0.5 mg PO DAILY PRN (Reason: anxiety) 30 Days Qty: 20 0RF clonazepam 0.5 mg tablet 0.5 mg PO DAILY PRN (Reason: anxiety) Qty: 7 0RF Referrals: Nicolas Godfrey MD [Primary Care Provider] - 2 days
--- NOTE | 2022-01-03 16:51 | PC.NURSE ---
patient asked if he had any medical issues for which he takes meds- he said he had none, says he takes ativan and that he ran out a few days ago, takes them for panic attacks reports being current w psychiatry appointments but also says he ran out of medications about 2 days ago. states psychatrist is provider. reports no drugs and alcohol, reports no hallucinations, either father or uncle is with patient. contracts for safety denies any thought to harm self or others. does seem to be blinking deliberately and states feels like a band, no pain, just feels different.
[2022-01-03 17:07] LABS: Amphetamine Screen Urine Not Detected (Not Detect); Barbiturates, Urine Not Detected (Not Detect); Benzodiazepines Screen Urine Not Detected (Not Detect); Cannabinoid Screen Urine POSITIVE (Not Detect); Cocaine Screen Urine Not Detected (Not Detect); Fentanyl, urine Not Detected (Not Detect); Opiate Screen Urine Not Detected (Not Detect); Phencyclidine Screen Urine Not Detected (Not Detect)
[2022-01-03] MEDS: 0.9 % Sodium Chloride 1,000 ML 999 ML IV ×2 (17:18→20:51)
[2022-01-03 17:26] LABS: COVID-19 Test Negative (Negative); IDNOW Serial# 16C4AD1C
[2022-01-03 17:32] LABS: Lipase 69 U/L (8-78)
[2022-01-03 17:37] LABS: Ethanol < 10 mg/dL
[2022-01-03 20:52] VITALS: BP 101/43; PULSE 50
[2022-01-03 20:54] VITALS: BP 100/56; PULSE 54
[2022-01-03 20:55] VITALS: BP 91/49; PULSE 61
--- NOTE | 2022-01-03 21:40 | PHA.MEDREC ---
Pharmacy Consult ? Medication Reconciliation Pharmacy has completed the medication reconciliation. Pt verified that he doesn't not take any meds other than ativan. He believes that he filled it a month ago at [facility]. [facility] called for verfication and last fill was 06/14/21, with clonazepam 0.5 mg being the most recent fill on 08/18/21. Denied being on clozaril or an other medications
== END 2022-01-03 22:02 | disposition home or self-care (01) ==
PROVIDERS: Physician Assistant; Emergency Provider Internal Medicine; PCP Internal Medicine
DX: R00.1 Bradycardia, unspecified (principal); I95.9 Hypotension, unspecified; R42 Dizziness and giddiness; F41.9 Anxiety disorder, unspecified; Z20.822 Contact with and (suspected) exposure to COVID-19; F25.0 Schizoaffective disorder, bipolar type; F12.90 Cannabis use, unspecified, uncomplicated; Z79.899 Other long term (current) drug therapy
CPT/HCPCS: 36415; 70450; 80048; 80307; 81003; 82077; 83690; 85025; 87635; 93005; 96360; 96361; 99283; 99284

== ENCOUNTER 2022-01-06 02:09 | Emergency (ER) | payer MEDICAID, SELFPAY ==
[2022-01-06 02:12] VITALS: BP 140/78; PULSE 84; RESP 16; TEMP 36.7; O2SAT 98; BMI 26.2
--- NOTE | 2022-01-06 02:40 | ED.PSYCH ---
HPI - Psych General Chief Complaint: Overdose Stated Complaint: anxiety attack Time Seen by Provider: 01/06/22 02:39 Source: patient Mode of arrival: ambulatory Limitations: no limitations History of Present Illness HPI Narrative: Patient feels anxious after smoking marijuana same thing happened 3 days ago when he came to the hospital no fever no chills no shortness of breath Related Data Home Medications Medication Instructions Recorded Confirmed lorazepam 1 mg tablet 1 tab PO BEDTIME PRN Insomnia 01/03/22 01/03/22 Allergies Allergy/AdvReac Type Severity Reaction Status Date / Time diphenhydramine Allergy Unknown unknown Verified 10/12/20 04:33 [From BENADRYL] haloperidol [From HALDOL] Allergy Unknown unknown Verified 10/12/20 04:33 paliperidone AdvReac Severe dystonia Verified 03/30/21 23:47 Review of Systems Review of Systems: Yes all other systems are reviewed and are negative [facility] Past Medical History Medical History Anxiety Surgical History No pertinent past surgical history Social History Social History Household Members: Family and None Housing: House Housing Other:: intermediate Do you presently have visiting nurse or other home services: No Unable to assess alcohol history related to: Unknown Alcohol intake: unknown Patient Tobacco Use Status: Former Tobacco user Quit Date: 07/18/21 Tobacco use type: Cigarette Cigarette Packs Per Day: 1 Cigarettes Per Day: 20.0 Years Smoked: 8 Second Hand Smoke Exposure: No Substance Use Type: Marijuana Advance Directives: No service: No Current occupational status: disabled Sexual orientation: Did not discuss Physical Exam Vital Signs: Vital Signs: Last Vital Signs Temp 98.0 F 01/06/22 02:12 Pulse 84 01/06/22 02:12 Resp 16 01/06/22 02:12 BP 140/78 H 01/06/22 02:12 Pulse Ox 98 01/06/22 02:12 O2 Del Method 01/06/22 02:12 BMI result Body Mass Index 26.2 Appearance: Alert. Oriented X3. No acute distress. Very anxious Eyes: PERRLA, No Nystagmus ENT: Pharynx normal. Oral Mucosa moist Neck: Normal inspection. Neck supple. CVS: Normal heart rate and rhythm. Pulses normal. Respiratory: No respiratory distress. Equal air entry bilateral, no wheezing/rales/rhonchi Abdomen: Soft and nontender. Bowel sounds are present, no mass palpable, no CVA tenderness Skin: Skin warm and dry. Normal skin color. Normal skin turgor. Extremities: No lower extremity edema. No calf tenderness Neuro: Oriented X 3. Discharge Plan Discharge Clinical Impression: Schizoaffective disorder, bipolar type, Anxiety Patient Disposition: Home, Self-Care Instructions: Schizoaffective Disorder (ED), Anxiety (ED) Additional Instructions: Stop using marijuana and take your medication as prescribed by a psychiatrist for anxiety and sleep Prescriptions: No Action lorazepam 1 mg tablet 1 tab PO BEDTIME PRN (Reason: Insomnia) Interventions: ED Discharge Assessment Last Done: 01/06/22 03:05 Discharge Date/Time: 01/06/22 03:06
[2022-01-06] MEDS: LORazepam 1 MG TABLET 2 MG PO (03:03)
== END 2022-01-06 03:06 | disposition home or self-care (01) ==
PROVIDERS: Emergency Provider Internal Medicine; PCP Internal Medicine
DX: F41.9 Anxiety disorder, unspecified (principal); F25.0 Schizoaffective disorder, bipolar type
CPT/HCPCS: 99282; 99283

== ENCOUNTER 2022-02-22 12:18 | Inpatient (IN) | payer OTHER, SELFPAY ==
--- NOTE | 2022-02-22 13:30 | ED.PSYCH ---
HPI - Psych General Stated Complaint: IN CRISIS /UNREG MED USE Time Seen by Provider: 02/22/22 13:29 Source: patient and EMS Mode of arrival: EMS Limitations: no limitations History of Present Illness HPI Narrative: Patient comes to the emergency room via EMS. Patient states that he is here to get a dose of Ativan and then he will be on his way out. Seems that the patient's mother called EMS because the patient is off his medications. A time, patient is unwilling to provide any further information other than he needs abdomen and he wants to go. Patient denies suicidal or homicidal ideation Related Data Home Medications Medication Instructions Recorded Confirmed lorazepam 1 mg tablet 1 tab PO BEDTIME PRN Insomnia 01/03/22 01/03/22 Allergies Allergy/AdvReac Type Severity Reaction Status Date / Time diphenhydramine Allergy Unknown unknown Verified 10/12/20 04:33 [From BENADRYL] haloperidol [From HALDOL] Allergy Unknown unknown Verified 10/12/20 04:33 paliperidone AdvReac Severe dystonia Verified 03/30/21 23:47 Review of Systems Review of Systems: Constitutional : No Weight loss, No Fever, No Chills, No Night Sweats, No Fatigue, No Malaise ENT/Mouth : No Hearing loss, No Ear Pain, No Nasal Congestion, No Sinus Pain, No Hoarseness, No sore throat, No Rhinorrhea, No Swallowing Difficulty Eyes: No Eye Pain, No Swelling, No Redness, No Foreign Body, No Discharge, No Vision Changes Cardiovascular : No Chest Pain, No SOB, No Dyspnea on Exertion, No Orthopnea, No Edema, No Palpitations Respiratory : No Cough, No Sputum, No Wheezing, No Smoke Exposure, No Dyspnea Gastrointestinal : No Nausea, No Vomiting, No Diarrhea, No Constipation, No abdominal Pain, No Hematochezia, No Melena Genitourinary : no irregular bleeding, No Dysuria, No Urinary Frequency, No Hematuria, No Urinary Incontinence, No Urgency, No Flank Pain, No Urinary Flow Changes, No Hesitancy Musculoskeletal : No joint pain, No Myalgias, No Joint Swelling Skin : No Skin Lesions, No rash Neuro : No Weakness, No Numbness, No Paresthesias, No Loss of Consciousness, No Dizziness, No Headache Psych : Complaining of anxiety Heme/Lymph: No Bruising, No Bleeding,No Lymphadenopathy Endocrine : No Polyuria, No Polydipsia, No Temperature Intolerance PMFSH Past Medical History Medical History Anxiety Schizoaffective disorder, bipolar type Surgical History No pertinent past surgical history Social History Social History Household Members: Family and None Housing: House Housing Other:: detention Do you presently have visiting nurse or other home services: No Unable to assess alcohol history related to: Unknown Alcohol intake: unknown Patient Tobacco Use Status: Former Tobacco user Quit Date: 07/18/21 Tobacco use type: Cigarette Cigarette Packs Per Day: 1 Cigarettes Per Day: 20.0 Years Smoked: 8 Second Hand Smoke Exposure: No Substance Use Type: Marijuana service: No Current occupational status: disabled Sexual orientation: Did not discuss Physical Exam Const: Other: Appearance: Alert. Oriented X3. No acute distress. Eyes: Pupils equal, round and reactive to light. ENT: Pharynx normal. Neck: Normal inspection. Neck supple. No lymph nodes noted. No crepitus CVS: Normal heart rate and rhythm. Pulses normal. Normal S1 and S2 Respiratory: No respiratory distress. Breath sounds normal. No Wheezing. No rales Abdomen: Soft and nontender. No rigidity. No distention. Skin: Skin warm and dry. Normal skin color. Normal skin turgor. Extremities: No lower extremity edema. No Lacerations. No Rash Neuro: Oriented X 3. No motor deficit. No sensory deficit. Moving all extremities. No slurred speech. CN 2 through 12 grossly intact Psych: calm, cooperative, requesting Ativan Course Course Course Narrative: At this time, patient is not giving enough information, just saying that he needs an Ativan tablet and he will be on his way. [facility] consult pending. I discussed with the patient that we recommend that he be seen by [facility], patient agrees with plan. Physician of sedation started at 13:45 Discharge Plan Discharge Clinical Impression: Schizoaffective disorder, bipolar type, Anxiety Patient Disposition: Still a Patient Prescriptions: No Action lorazepam 1 mg tablet 1 tab PO BEDTIME PRN (Reason: Insomnia)
[2022-02-22 13:47] VITALS: BP 123/69; BP 129/69; PULSE 75; PULSE 88; RESP 16; TEMP 37.1; O2SAT 98; O2SAT 99; BMI 23.1
--- NOTE | 2022-02-22 14:01 | MHC.CARE ---
Spoke to patient's mother ([phone]) who wanted to provide information. She reported that her son has not been taking medication, over the last two weeks has been increasingly confused, does not recognize his family at times, has been wandering and walking in the road in the middle of the night, self dialoguing, No Filipe, don't do it, you're a good boy. She said that is the same type of language before his suicide attempt. Today she called his advocate, [facility] for help but ended up needing to call 911. Stressed that she is very concerned he will try to kill himself or come to harm in the community due to his disorientation, would like to speak to estate and trust tax principal.
[2022-02-22 14:23] LABS: Amphetamine Screen Urine Not Detected (Not Detect); Barbiturates, Urine Not Detected (Not Detect); Benzodiazepines Screen Urine Not Detected (Not Detect); Cannabinoid Screen Urine POSITIVE (Not Detect); Cocaine Screen Urine Not Detected (Not Detect); Fentanyl, urine Not Detected (Not Detect); Opiate Screen Urine Not Detected (Not Detect); Phencyclidine Screen Urine Not Detected (Not Detect)
[2022-02-22 14:34] LABS: COVID-19 Test Negative (Negative)
[2022-02-22 14:44] LABS: MANUAL DIFF FLAG NO
[2022-02-22 14:49] LABS: Basophils Absolute Auto 0.1 X10*3/uL (0.0-0.2); Eosinophils Absolute Auto 0.1 X10*3/uL (0.0-0.4); Eosinophils Percent Auto 1.8 % (0-4); Hemoglobin 14.7 g/dl (14.0-18.0); Imm Gran Abs Auto 0.01 X10*3/uL (0.00-0.03); Imm Gran Pct Auto 0.2 % (0.0-0.4); Lymphocytes Absolute Auto 1.7 X10*3/uL (1.2-4.9); Lymphocytes Percent Auto 26.7 % (20-40); Mean Corpuscular HGB Conc 34.2 g/dl (31.0-36.0); Mean Corpuscular Hemoglobin 31.5 pg (27.0-33.0); Mean Corpuscular Volume 92.1 fL (80.0-98.0); Mean Platelet Volume 9.2 fL (9.4-12.4); Monocytes Absolute Auto 0.6 X10*3/uL (0.1-1.2); Monocytes Percent Auto 9.7 % (2-11); Neutrophils Absolute Auto 3.8 x10*3/uL (2.0-8.3); Neutrophils Percent Auto 60.6 % (45-73); Platelet Count 217 X10*3/uL (160-400); Red Blood Count 4.67 X10*6/uL (4.60-5.80); Red Cell Distribution Width 12.8 % (11.0-16.0); White Blood Count 6.2 X10*3/uL (4.8-10.8)
[2022-02-22] MEDS: LORazepam 1 MG TABLET 2 MG PO (15:13)
[2022-02-22 15:14] LABS: Ethanol < 10 mg/dL
[2022-02-22 15:19] LABS: Alanine Aminotransferase 18 U/L (0-40); Albumin Level 4.9 g/dL (3.5-5.0); Alkaline Phosphatase 67 U/L (39-117); Anion Gap 15 (12-20); Aspartate Amino Transferase 24 U/L (5-37); Bilirubin Total 0.9 mg/dL (0.0-1.0); Blood Urea Nitrogen 13 mg/dL (9-16); Calcium 9.4 mg/dL (8.4-10.2); Carbon Dioxide 28 mmol/L (22-29); Chloride 104 mmol/L (96-108); Creatinine Clr Calc Pharmacy 110.4; Estimated Glomerular Filt Rate > 60; Glucose Fasting 98 mg/dL (60-99); Sodium 143 mmol/L (135-145); Total Protein 7.3 g/dL (6.5-8.0)
[2022-02-22] MEDS: Nicotine Polacrilex 2 MG GUM BUCCAL (17:54)
--- NOTE | 2022-02-23 01:19 | PC.ADMIT ---
PT IS A 26 YEAR OLD CISGENDER MALE ADMITTED TO M[facility] FROM [facility] ED. CONDITIONAL VOLUNTARY. 5 MINUTE SAFETY CHECKS LOCKED BATHROOM. NOT APPROPRIATE FOR GROUPS AT THIS TIME. COVID NEGATIVE. TOX SCREEN POSITIVE ONLY FOR MARIJUANA. FORMER TOBACCO USER AND DOES WANT NICOTINE GUM ORDERED. PTS MOTHER CALLED 911 TO HAVE PATIENT BROUGHT IN DUE TO BIZARRE, DANGEROUS BEHAVIORS. PT HAS NOT BEEN TAKING HIS MEDICATIONS FOR AN UNKNOWN PERIOD OF TIME AND BEEN DETERIORATING. PT HAS BEEN FORGETTING PEOPLES NAMES, DISORIENTED TO DATE/TIME, RESPONDING TO INTERNAL STIMULI, LACKING SLEEP, AND WANDERING IN TO TRAFFIC DURING THE MIDDLE OF THE NIGHT. PTS SYMPTOMS APPEAR SIMILAR TO HIS PRIOR ADMISSION WHEN PT SPENT TIME IN ICU DUE TO A SUICIDE ATTEMPT. PT COULD NOT PARTICIPATE IN SIGNING LEGAL FORMS DUE TO HIS MENTAL STATUS AT THIS TIME. HE WAS WANDERING AROUND THE UNIT, TRACING ITEMS SUCH HIS BED WITH HIS FINGER AND RESPONDING TO INTERNAL STIMULI. PT IS EXPERIENCING COMMAND HALLUCINATIONS AND SI. PT DENIES HI, VH, ANXIETY OR DEPRESSION. PTS APPETITE DOES NOT APPEAR IMPAIRED. PT IS SAFE ON THE UNIT.
[2022-02-23 06:00] VITALS: BP 127/62; PULSE 55; RESP 16; TEMP 36.6; O2SAT 98
[2022-02-23] MEDS: Nicotine Polacrilex 2 MG GUM BUCCAL ×2 (06:04→08:37)
--- NOTE | 2022-02-23 06:05 | PC.NURSE ---
pt signed a 3 day notice on 02/23/2022. up on sunday02/28/2022.
[2022-02-23 07:00] VITALS: BMI 21.1
[2022-02-23] MEDS: ARIPiprazole 10 MG TABLET PO (07:45)
[2022-02-23] MEDS: LORazepam 1 MG TABLET PO ×2 (07:45→20:24)
[2022-02-23 09:11] LABS: Estimated Average Glucose 94 mg/dL; Hemoglobin A1c % 4.9 %
[2022-02-23 09:39] LABS: Cholesterol 112 mg/dL; HDL Cholesterol 29 mg/dL; LDL Cholesterol Calculated 73 mg/dl; Magnesium 2.3 mg/dL (1.6-2.6); Triglycerides 50 mg/dL
[2022-02-23 10:01] LABS: Free T4 (Free Thyroxine) 1.52 ng/dL (0.71-1.85); Thyroid Stimulating Hormone 1.26 uIU/mL (0.32-4.0)
[2022-02-23 11:00] LABS: Folate 5.9 ng/mL (> or = 4.0); Vitamin B12 536 pg/mL (200-900)
[2022-02-23] MEDS: Nicotine Polacrilex 2 MG GUM 4 MG BUCCAL ×5 (12:23→20:29)
[2022-02-23 18:00] VITALS: BP 148/95; PULSE 67; RESP 18; TEMP 37.7; O2SAT 100
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
[2022-02-24] MEDS: Nicotine Polacrilex 2 MG GUM 4 MG BUCCAL ×8 (03:18→22:26)
[2022-02-24] MEDS: ARIPiprazole 10 MG TABLET PO (07:58)
[2022-02-24] MEDS: LORazepam 1 MG TABLET PO ×2 (11:09→19:22)
[2022-02-24 16:23] VITALS: BP 143/73; PULSE 101; TEMP 36.7; O2SAT 99
--- NOTE | 2022-02-24 17:09 | HO.PSYCHPN ---
Subjective Subjective Date of Service: 02/24/22 Reason For Visit: Psychosis Subjective Notes: Tesfaye Warning, Conditional Voluntary and 3 Day Healthcare Proxy: No Guardianship: No Medical Problems Affecting Mental Status: No Interim History: Patient seen and discussed with team. Patient evaluated today and upon interview pt reports Im doing great. Pt was again adherent with abilify 10 mg daily but non-adherent with zyprexa. Says I?ll be interested in seroquel. Says I slept great. Eating his meals. Pt is self dialoguing, responding to internal stimuli, constricted. Medication Compliance: Intermittent Side effects from medications: No Attending Groups: No Review of Systems Acute medical concerns: No Medical Review of Systems: unchanged Mental Status Exam Mental Status Exam Narrative: Alert but not oriented to situation; behavior is calm, unable to meaningfully engage due to internal preoccupation; mood is great / affect constricted, incongruent; eye contact intermittent; pt is softly self dialoguing; no psychomotor agitation; no EPS or dystonia, thought process is distracted, disorganized; he denies any SI/HI. Patients insight and judgment are impaired/ poor. Diagnostics Vital Signs (24Hr): Vital Signs - 24 hr 02/23/22 18:00 02/24/22 16:23 Temperature 99.8 F 98.1 F Pulse Rate 67 101 H Respiratory Rate 18 Blood Pressure 148/95 H 143/73 H Pulse Oximetry 100 99 Oxygen Delivery Method Room Air BMI result Body Mass Index 21.1 Labs Results: 02/22/22 14:38 02/22/22 14:38 Labs: Laboratory Results - last 48 hr 02/23/22 02/23/22 02/23/22 08:24 08:24 08:24 Estimat Average Glucose 94 Hemoglobin A1c % 4.9 Magnesium 2.3 Triglycerides 50 Cholesterol 112 LDL Cholesterol, Calc 73 HDL Cholesterol 29 Vitamin B12 536 Folate 5.9 TSH 1.26 Free T4 1.52 Medications Medications Current Medications Acetaminophen (Acetaminophen 325 Mg Tablet) 650 mg PO Q6H PRN PRN Reason: Headache/Pain Mild Scale (1-3) Al Hydroxide/Mg Hydroxide (Magnesium Hydrox/Alum Hydrox 30 Ml Oral.Susp) 30 ml PO Q6H PRN PRN Reason: Heartburn/Nausea Aripiprazole (Aripiprazole 10 Mg Tablet) 10 mg PO DAILY EUGENIA Last Admin: 02/24/22 07:58 Dose: 10 mg Hydroxyzine HCl (Hydroxyzine Hcl 25 Mg Tablet) 25 mg PO Q6H PRN PRN Reason: Anxiety Lorazepam (Lorazepam 1 Mg Tablet) 1 mg PO BID PRN PRN Reason: Anxiety Last Admin: 02/24/22 11:09 Dose: 1 mg Magnesium Hydroxide (Milk Of Magnesia 30 Ml Oral.Susp) 30 ml PO DAILY PRN PRN Reason: Constipation Nicotine Polacrilex (Nicotine Polacrilex 2 Mg Gum) 4 mg BUCCAL Q1H PRN PRN Reason: Nicotine Cravings Last Admin: 02/24/22 15:32 Dose: 4 mg Olanzapine (Olanzapine Odt 10 Mg Tab.Rapdis) 20 mg TRANSLINGU BEDTIME EUGENIA Last Admin: 02/24/22 16:00 Dose: Not Given Olanzapine (Olanzapine 5 Mg Tablet) 5 mg PO BID PRN PRN Reason: psychosis Trazodone HCl (Trazodone Hcl 50 Mg Tablet) 50 mg PO BEDTIME PRN PRN Reason: Insomnia Allergies Allergies Allergy/AdvReac Type Severity Reaction Status Date / Time diphenhydramine Allergy Unknown unknown Verified 10/12/20 04:33 [From BENADRYL] haloperidol [From HALDOL] Allergy Unknown unknown Verified 10/12/20 04:33 paliperidone AdvReac Severe dystonia Verified 03/30/21 23:47 Assessment & Plan Assessment & Plan (1) Schizoaffective disorder, bipolar type: Status: Acute Code(s): F25.0 - Schizoaffective disorder, bipolar type Plan Jose is a 26 y.o. male with a history of schizoaffective disorder, bipolar type. Pt has hx of multiple previous inpatient admissions for psychotic sx i.e. religiosity, command AH, internal preoccupation, paranoid ideations, and agitation. Pt presented to [facility] on [place]22[place]22 after pt's mother called EMS because of non-adherence to medications. Per pharmacy records, pt last filled clozapine in 08/2021, however was non-adherent and OP provider Bennett Light switched him to abilify 10 mg daily on 01/26/2022. Pt has decompensated, psychotic and disorganized. Plan: Start olanzapine 20 mg ODT as pt has been receiving this in the ED and has tolerated it in the past. Start olanzapine 5 mg BID PRN. Continue abilify 10 mg. Start seroquel 400 mg QHS at bedtime for psychosis. D/C olanzapine due to pt refusing. Increase abilify to 15 mg daily. Q15 min safety checks, CV Monitor response to medications. Monitor for safety in the milieu. Discharge on stabilization. Patient seen. Chart reviewed. Discussed with team. Obtain collateral contact info as needed I spent minutes with the patient and/or on the patient floor today, greater than?50% of which was spent counseling/coordinating care. Patient educated on: diagnosis, medication risk/benefits and therapeutic strategies Reason for contiued inpatient stay Substantial Risk for: inability to function, rapid decompensation and med/psych decompensation
--- NOTE | 2022-02-24 20:04 | PC.NURSE ---
pt did not take his med and staff had retrieve the med from him.pt was trying to hide med in pockets.
[2022-02-25] MEDS: Nicotine Polacrilex 2 MG GUM 4 MG BUCCAL ×7 (04:58→19:32)
[2022-02-25 06:00] VITALS: BP 131/68; PULSE 92; RESP 16; TEMP 36.6; O2SAT 99
[2022-02-25] MEDS: ARIPiprazole 15 MG TABLET PO (10:06)
--- NOTE | 2022-02-25 10:07 | PC.NURSE ---
Pt placed 15mg abilify pill in mouth to let dissolve . After a few minutes pt took pill out of mouth, put into cup of water and stirred until it dissolved. Pt refused to drink water. It is unclear how much of the pill was ingested. aware.
[2022-02-25 16:18] VITALS: BP 129/62; PULSE 77; TEMP 36.9
--- NOTE | 2022-02-25 23:46 | P.PNPSI_ITS ---
Subjective Subjective Date of Service: 02/25/22 Reason For Visit: Psychosis Subjective Notes: Tesfaye Warning Interim History: Patient seen and discussed with team. Patient evaluated today and upon interview pt says he is doing great. Has been intermittently adherent with meds, not taking seroquel, says he prefers the 50 mg pills, recognizes them when he looks at them. He somewhat cheeked his abilify i.e. took a tiny fracture out of his mouth. Says I dont like them for medication and I just want to sit outside. Denies SI/SIB, says he feels safe here, I feel ready to go, I put in a 3 day. Pt says I?ll be taking medications once im out of here. lack of insight into contradiction of this statement as he is not taking meds while inpatient. Sleep is poor. Medication Compliance: Intermittent Side effects from medications: No Attending Groups: No Review of Systems Acute medical concerns: No Medical Review of Systems: unchanged Mental Status Exam Mental Status Exam Narrative: Alert but not oriented to situation; behavior is calm, unable to meaningfully engage due to internal preoccupation; mood is great / affect constricted, incongruent; eye contact intermittent; pt is softly self dialoguing; no psych omotor agitation; no EPS or dystonia, thought process is distracted, disorganized; he denies any SI/HI. Patients insight and judgment are impaired/ poor. Diagnostics Vital Signs (24Hr): Vital Signs - 24 hr 02/26/22 16:28 Temperature 98.5 F Pulse Rate 80 Blood Pressure 127/84 BMI result Body Mass Index 21.1 Labs Results: 02/22/22 14:38 02/22/22 14:38 Medications Medications Current Medications Acetaminophen (Acetaminophen 325 Mg Tablet) 650 mg PO Q6H PRN PRN Reason: Headache/Pain Mild Scale (1-3) Al Hydroxide/Mg Hydroxide (Magnesium Hydrox/Alum Hydrox 30 Ml Oral.Susp) 30 ml PO Q6H PRN PRN Reason: Heartburn/Nausea Aripiprazole (Aripiprazole 15 Mg Tablet) 15 mg PO DAILY EUGENIA Last Admin: 02/26/22 10:12 Dose: Not Given Hydroxyzine HCl (Hydroxyzine Hcl 25 Mg Tablet) 25 mg PO Q6H PRN PRN Reason: Anxiety Lorazepam (Lorazepam 1 Mg Tablet) 1 mg PO Q6H PRN PRN Reason: Anxiety Last Admin: 02/24/22 19:22 Dose: 1 mg Magnesium Hydroxide (Milk Of Magnesia 30 Ml Oral.Susp) 30 ml PO DAILY PRN PRN Reason: Constipation Nicotine Polacrilex (Nicotine Polacrilex 2 Mg Gum) 4 mg BUCCAL Q1H PRN PRN Reason: Nicotine Cravings Last Admin: 02/26/22 18:44 Dose: 4 mg Quetiapine Fumarate (Quetiapine Fumarate 400 Mg Tablet) 400 mg PO BEDTIME EUGENIA Last Admin: 02/26/22 16:53 Dose: Not Given Quetiapine Fumarate (Quetiapine Fumarate 50 Mg Tablet) 50 mg PO Q4H PRN PRN Reason: psychosis, agitation, anxiety Trazodone HCl (Trazodone Hcl 50 Mg Tablet) 50 mg PO BEDTIME PRN PRN Reason: Insomnia Allergies Allergies Allergy/AdvReac Type Severity Reaction Status Date / Time diphenhydramine Allergy Unknown unknown Verified 10/12/20 04:33 [From BENADRYL] haloperidol [From HALDOL] Allergy Unknown unknown Verified 10/12/20 04:33 paliperidone AdvReac Severe dystonia Verified 03/30/21 23:47 Assessment & Plan Assessment & Plan (1) Schizoaffective disorder, bipolar type: Status: Acute Code(s): F25.0 - Schizoaffective disorder, bipolar type Plan Jose is a 26 y.o. male with a history of schizoaffective disorder, bipolar type. Pt has hx of multiple previous inpatient admissions for psychotic sx i.e. religiosity, command AH, internal preoccupation, paranoid ideations, and agitation. Pt presented to [facility] on 02/22/22 after pt's mother called EMS because of non-adherence to medications. Per pharmacy records, pt last filled clozapine in 08/2021, however was non-adherent and OP provider Bennett Light switched him to abilify 10 mg daily on 01/26/2022. Pt has decompensated, psychotic and disorganized. Plan: Start olanzapine 20 mg ODT as pt has been receiving this in the ED and has tolerated it in the past. Start olanzapine 5 mg BID PRN. Continue abilify 10 mg. Start seroquel 400 mg QHS at bedtime for psychosis. D/C olanzapine due to pt refusing. Increase abilify to 15 mg daily. start seroquel 50 mg Q4H PRN, as he may be more adherent with lower dose while team works on engagement. Q15 min safety checks, CV Monitor response to medications. Monitor for safety in the milieu. Discharge on stabilization. Patient seen. Chart reviewed. Discussed with team. Obtain collateral contact info as needed I spent minutes with the patient and/or on the patient floor today, greater than?50% of which was spent counseling/coordinating care. Patient educated on: diagnosis, medication risk/benefits and therapeutic strategies Reason for contiued inpatient stay Substantial Risk for: inability to function, rapid decompensation and med/psych decompensation
[2022-02-26] MEDS: Nicotine Polacrilex 2 MG GUM 4 MG BUCCAL ×7 (01:08→20:51)
--- NOTE | 2022-02-26 13:02 | P.PNPSI_ITS ---
Subjective Subjective Date of Service: 02/26/22 Reason For Visit: Psychosis Subjective Notes: Section 12B Interim History: Chart reviewed. Discussed with Nursing. Presents as internally preoccupied and guarded. Did not want to engage with song writer. Reports wanting discharge. Medication Compliance: Intermittent Attending Groups: No Review of Systems Acute medical concerns: No Review of Systems Review of Systems Yes Unobtainable due to mental status Mental Status Exam Mental Status Exam Narrative: Standing in room. Internally preoccupied and hallucinating. Guarded and paranoid. No evidence of SI or HI. Insight and judgment poor Diagnostics Vital Signs (24Hr): Vital Signs - 24 hr 02/25/22 16:18 Temperature 98.5 F Pulse Rate 77 Blood Pressure 129/62 BMI result Body Mass Index 21.1 Labs Results: 02/22/22 14:38 02/22/22 14:38 Medications Medications Current Medications Acetaminophen (Acetaminophen 325 Mg Tablet) 650 mg PO Q6H PRN PRN Reason: Headache/Pain Mild Scale (1-3) Al Hydroxide/Mg Hydroxide (Magnesium Hydrox/Alum Hydrox 30 Ml Oral.Susp) 30 ml PO Q6H PRN PRN Reason: Heartburn/Nausea Aripiprazole (Aripiprazole 15 Mg Tablet) 15 mg PO DAILY [facility] Last Admin: 02/26/22 10:12 Dose: Not Given Hydroxyzine HCl (Hydroxyzine Hcl 25 Mg Tablet) 25 mg PO Q6H PRN PRN Reason: Anxiety Lorazepam (Lorazepam 1 Mg Tablet) 1 mg PO Q6H PRN PRN Reason: Anxiety Last Admin: 02/24/22 19:22 Dose: 1 mg Magnesium Hydroxide (Milk Of Magnesia 30 Ml Oral.Susp) 30 ml PO DAILY PRN PRN Reason: Constipation Nicotine Polacrilex (Nicotine Polacrilex 2 Mg Gum) 4 mg BUCCAL Q1H PRN PRN Reason: Nicotine Cravings Last Admin: 02/26/22 08:07 Dose: 4 mg Quetiapine Fumarate (Quetiapine Fumarate 400 Mg Tablet) 400 mg PO BEDTIME [facility] Last Admin: 02/25/22 20:40 Dose: Not Given Quetiapine Fumarate (Quetiapine Fumarate 50 Mg Tablet) 50 mg PO Q4H PRN PRN Reason: psychosis, agitation, anxiety Trazodone HCl (Trazodone Hcl 50 Mg Tablet) 50 mg PO BEDTIME PRN PRN Reason: Insomnia Allergies Allergies Allergy/AdvReac Type Severity Reaction Status Date / Time diphenhydramine Allergy Unknown unknown Verified 10/12/20 04:33 [From BENADRYL] haloperidol [From HALDOL] Allergy Unknown unknown Verified 10/12/20 04:33 paliperidone AdvReac Severe dystonia Verified 03/30/21 23:47 Assessment & Plan Assessment & Plan (1) Schizoaffective disorder, bipolar type: Status: Acute Code(s): F25.0 - Schizoaffective disorder, bipolar type Plan Jose is a 26 y.o. male with a history of schizoaffective disorder, bipolar type. Pt has hx of multiple previous inpatient admissions for psychotic sx i.e. religiosity, command AH, internal preoccupation, paranoid ideations, and agitation. Pt presented to [facility] ED on 02/22/22 after pt's mother called EMS because of non-adherence to medications. Per pharmacy records, pt last filled clozapine in 08/2021, however was non-adherent and OP provider Bennett Light switched him to abilify 10 mg daily on 01/26/2022.?Pt has decompensated, psychotic and disorganized. Plan: Start olanzapine 20 mg ODT as pt has been receiving this in the ED and has t olerated it in the past. Start olanzapine 5 mg BID PRN. Continue abilify 10 mg. Q15 min safety checks, CV Monitor response to medications. Monitor for safety in the milieu. Discharge on stabilization. Patient seen. Chart reviewed. Discussed with team. Obtain collateral contact info?as needed 02/26/2022: No changes to current treatment plan. Encourage adherence. I spent minutes with the patient and/or on the patient floor today, greater than?50% of which was spent counseling/coordinating care. Reason for contiued inpatient stay Substantial Risk for: inability to function
[2022-02-26 16:28] VITALS: BP 127/84; PULSE 80; TEMP 36.9
[2022-02-27] MEDS: Nicotine Polacrilex 2 MG GUM 4 MG BUCCAL ×10 (03:37→22:22)
[2022-02-27] MEDS: LORazepam 1 MG TABLET PO (09:15)
[2022-02-27 16:54] VITALS: BP 118/74; PULSE 90; TEMP 36.6
--- NOTE | 2022-02-27 17:20 | P.PNPSI_ITS ---
Subjective Subjective Date of Service: 02/27/22 Reason For Visit: Psychosis Subjective Notes: Tesfaye Warning and Conditional Voluntary Healthcare Proxy: No Guardianship: No Medical Problems Affecting Mental Status: No Interim History: Patient seen and discussed with team. Patient evaluated today and upon interview he reports he is feeling great. Says his sleep is not too good. Pt says he took the seroquel, however per MAR he has been med non-adherent. Says his energy is alright. Denies stressors or concerns. Says he is eating fine. Pt is latent in responses, internally preoccupied, self dialoguing, unable to meaningfully participate, minimizing sx, constricted. In the milieu, patient is safe and has not been aggressive, mostly redirectable, pleasantly psychotic. Although, he is not engaging in treatment. Medication Compliance: No Attending Groups: No Review of Systems Acute medical concerns: No Medical Review of Systems: unchanged Mental Status Exam Mental Status Exam Narrative: Alert but not oriented to situation; behavior is calm, unable to meaningfully engage due to internal preoccupation; mood is great / affect constricted, incongruent; eye contact intermittent; pt is softly self dialoguing; no psychomotor agitation; no EPS or dystonia, thought process is distracted, disorganized; he denies any SI/HI. Patients insight and judgment are impaired/ poor. Diagnostics Vital Signs (24Hr): Vital Signs - 24 hr 02/27/22 16:54 Temperature 98 F Pulse Rate 90 Blood Pressure 118/74 BMI result Body Mass Index 21.1 Labs Results: 02/22/22 14:38 02/22/22 14:38 Medications Medications Current Medications Acetaminophen (Acetaminophen 325 Mg Tablet) 650 mg PO Q6H PRN PRN Reason: Headache/Pain Mild Scale (1-3) Al Hydroxide/Mg Hydroxide (Magnesium Hydrox/Alum Hydrox 30 Ml Oral.Susp) 30 ml PO Q6H PRN PRN Reason: Heartburn/Nausea Aripiprazole (Aripiprazole 15 Mg Tablet) 15 mg PO DAILY EUGENIA Last Admin: 02/27/22 09:16 Dose: Not Given Hydroxyzine HCl (Hydroxyzine Hcl 25 Mg Tablet) 25 mg PO Q6H PRN PRN Reason: Anxiety Lorazepam (Lorazepam 1 Mg Tablet) 1 mg PO Q6H PRN PRN Reason: Anxiety Last Admin: 02/27/22 09:15 Dose: 1 mg Magnesium Hydroxide (Milk Of Magnesia 30 Ml Oral.Susp) 30 ml PO DAILY PRN PRN Reason: Constipation Nicotine Polacrilex (Nicotine Polacrilex 2 Mg Gum) 4 mg BUCCAL Q1H PRN PRN Reason: Nicotine Cravings Last Admin: 02/27/22 16:41 Dose: 4 mg Quetiapine Fumarate (Quetiapine Fumarate 400 Mg Tablet) 400 mg PO BEDTIME EUGENIA Last Admin: 02/27/22 16:21 Dose: Not Given Quetiapine Fumarate (Quetiapine Fumarate 50 Mg Tablet) 50 mg PO Q4H PRN PRN Reason: psychosis, agitation, anxiety Trazodone HCl (Trazodone Hcl 50 Mg Tablet) 50 mg PO BEDTIME PRN PRN Reason: Insomnia Allergies Allergies Allergy/AdvReac Type Severity Reaction Status Date / Time diphenhydramine Allergy Unknown unknown Verified 10/12/20 04:33 [From BENADRYL] haloperidol [From HALDOL] Allergy Unknown unknown Verified 10/12/20 04:33 paliperidone AdvReac Severe dystonia Verified 03/30/21 23:47 Assessment & Plan Assessment & Plan (1) Schizoaffective disorder, bipolar type: Status: Acute Code(s): F25.0 - Schizoaffective disorder, bipolar type Plan Jose is a 26 y.o. male with a history of schizoaffective disorder, bipolar type. Pt has hx of multiple previous inpatient admissions for psychotic sx i.e. religiosity, command AH, internal preoccupation, paranoid ideations, and agitation. Pt presented to [facility] ED on 02/22/22 after pt's mother called EMS because of non-adherence to medications. Per pharmacy records, pt last filled clozapine in 08/2021, however was non-adherent and OP provider Bennett Light switched him to abilify 10 mg daily on 01/26/2022. Pt has decompensated, psychotic and disorganized. Plan: Start olanzapine 20 mg ODT as pt has been receiving this in the ED and has tolerated it in the past. Start olanzapine 5 mg BID PRN. Continue abilify 10 mg. Start seroquel 400 mg QHS at bedtime for psychosis. D/C olanzapine due to pt refusing. Increase abilify to 15 mg daily. start seroquel 50 mg Q4H PRN, as he may be more adherent with lower dose while team works on engagement. 02/27: Pt has remained non-adherent with medication, no longer adherent with abilify. Q15 min safety checks, CV Monitor response to medications. Monitor for safety in the milieu. Discharge on stabilization. Patient seen. Chart reviewed. Discussed with team. Obtain collateral contact info as needed I spent minutes with the patient and/or on the patient floor today, greater than?50% of which was spent counseling/coordinating care. Patient educated on: diagnosis, medication risk/benefits and therapeutic strategies Reason for contiued inpatient stay Substantial Risk for: inability to function, rapid decompensation and med/psych decompensation
[2022-02-28] MEDS: Nicotine Polacrilex 2 MG GUM 4 MG BUCCAL ×4 (01:30→13:10)
[2022-02-28 06:00] VITALS: BP 131/70; PULSE 72; RESP 18; TEMP 36.2; O2SAT 97
--- NOTE | 2022-02-28 10:14 | P.PNPSI_ITS ---
Subjective Subjective Date of Service: 02/28/22 Reason For Visit: Psychosis Subjective Notes: Tesfaye Warning (given on 02/28 by this underwriter mortgage loan) Interim History: Patient disorganized, initially looks at underwriter mortgage loan but does not respond him. Patient gets out of bed and walks out of room again not responding to underwriter mortgage loan. However on his way back he agrees to take clozapine. Does not answer other questions. Tesfaye warning given. Patient then refused to clozapine when nurse brought it to him. It was offered again later and he took. Mother reports patient has been wandering aimlessly, confused and disorganized in the streets, night eating, not recognizing family. Has been overheard daily saying no briana, don't do it...you're a good gurjit... Which is the same behavior patient demonstrated in the past, just prior to cutting his neck, in a near lethal suicide attempt. Mental Status Exam Mental Status Exam Narrative: Pt is alert and oriented; behavior is disorganized, not cooperative; calm; patient is not in distress; dressed in casual attire with close shaved head; mood is described as depressed; affect vacant; eye contact poor; Speech is mumbled; psychomotor retardation present; thought process is disorganized due to internal preoccupation; can be goal directed; Thought content is on undisclosed internally preoccupied thoughts; does not answer to questions about SI/HI. AH; Patients insight and judgment impaired. Diagnostics Vital Signs (24Hr): Vital Signs - 24 hr 02/27/22 16:54 02/28/22 06:00 Temperature 98 F 97.2 F Pulse Rate 90 72 Respiratory Rate 18 Blood Pressure 118/74 131/70 Pulse Oximetry 97 Oxygen Delivery Method Room Air BMI result Body Mass Index 21.1 Labs Results: 02/22/22 14:38 02/22/22 14:38 Medications Medications Current Medications Acetaminophen (Acetaminophen 325 Mg Tablet) 650 mg PO Q6H PRN PRN Reason: Headache/Pain Mild Scale (1-3) Al Hydroxide/Mg Hydroxide (Magnesium Hydrox/Alum Hydrox 30 Ml Oral.Susp) 30 ml PO Q6H PRN PRN Reason: Heartburn/Nausea Aripiprazole (Aripiprazole 15 Mg Tablet) 15 mg PO DAILY [facility] Last Admin: 02/28/22 08:07 Dose: Not Given Clozapine (Clozapine 25 Mg Tablet) 25 mg PO BID EUGENIA Clozapine (Clozapine 25 Mg Tablet) 25 mg PO ONCE ONE Stop: 02/28/22 10:14 Hydroxyzine HCl (Hydroxyzine Hcl 25 Mg Tablet) 25 mg PO Q6H PRN PRN Reason: Anxiety Lorazepam (Lorazepam 1 Mg Tablet) 1 mg PO Q6H PRN PRN Reason: Anxiety Last Admin: 02/27/22 09:15 Dose: 1 mg Magnesium Hydroxide (Milk Of Magnesia 30 Ml Oral.Susp) 30 ml PO DAILY PRN PRN Reason: Constipation Nicotine Polacrilex (Nicotine Polacrilex 2 Mg Gum) 4 mg BUCCAL Q1H PRN PRN Reason: Nicotine Cravings Last Admin: 02/28/22 08:06 Dose: 4 mg Quetiapine Fumarate (Quetiapine Fumarate 400 Mg Tablet) 400 mg PO BEDTIME EUGENIA Last Admin: 02/27/22 16:21 Dose: Not Given Quetiapine Fumarate (Quetiapine Fumarate 50 Mg Tablet) 50 mg PO Q4H PRN PRN Reason: psychosis, agitation, anxiety Trazodone HCl (Trazodone Hcl 50 Mg Tablet) 50 mg PO BEDTIME PRN PRN Reason: Insomnia Allergies Allergies Allergy/AdvReac Type Severity Reaction Status Date / Time diphenhydramine Allergy Unknown unknown Verified 10/12/20 04:33 [From BENADRYL] haloperidol [From HALDOL] Allergy Unknown unknown Verified 10/12/20 04:33 paliperidone AdvReac Severe dystonia Verified 03/30/21 23:47 Assessment & Plan Assessment & Plan (1) Schizoaffective disorder, bipolar type: Status: Acute Code(s): F25.0 - Schizoaffective disorder, bipolar type Plan Jose is a 26 y.o. male with a history of schizoaffective disorder, bipolar type. Pt has hx of multiple previous inpatient admissions for psychotic sx i.e. religiosity, command AH, internal preoccupation, paranoid ideations, and agitation. Pt presented to [facility] on 02/22/22 after pt's mother called EMS because of non-adherence to medications. Per pharmacy records, pt last filled clozapine in 08/2021, however was non-adherent and OP provider Bennett Light switched him to abilify 10 mg daily on 01/26/2022. Pt has decompensated, psychotic and disorganized. -reportedly, patient was doing relatively well in the community until it became very difficult for visiting nurse to find patient to administer clozapine. 02/28 Patient disorganized in speech and behavior; no insight with significant thought blocking; internally preoccupied Mother reports patient has been wandering aimlessly, confused and disorganized in the streets, night eating, not recognizing family and has been overheard daily saying no briana, don't do it...you're a good gurjit... Which is the same behavior patient demonstrated in the past, just prior to cutting his neck, in a near lethal suicide attempt. Patient has history of auditory hallucinations commanding him to self-harm. Patient has no insight, is internally preoccupied disorganized in both speech and behavior and is in imminent risk for harm to self. Will petition the court for involuntary commitment and substituted judgment. -will restart clozapine which to underwriter mortgage loan's knowledge is the only medications that has been effective Plan: Q15 min safety checks 3 day notice due; [facility] for involuntary commitment and substituted judgment for patient's safety START Clozapine 25 mg b.i.d. (ANC 3.8 on 02/21/22) ANC weekly START clonazepam 0.5mg bID (helped in past) Discontinue olanzapine for now (of only partial, limited effective; patient refusing) Discontinue Seroquel; patient refusing and overall to sedating to be effective Discontinue Abilify (not effective, patient refusing) Monitor response to medications. Monitor for safety in the milieu. Discharge on stabilization. Patient seen. Chart reviewed. Discussed with team. Obtain collateral contact info as needed I spent minutes with the patient and/or on the patient floor today, greater than?50% of which was spent counseling/coordinating care. Patient educated on: diagnosis and therapeutic strategies Informed Consent: does not understand Reason for contiued inpatient stay Substantial Risk for: harm to self and inability to function
[2022-02-28] MEDS: LORazepam 1 MG TABLET PO (10:30)
[2022-02-28] MEDS: cloZAPine 25 MG TABLET PO (13:13)
[2022-02-28 18:00] VITALS: BP 151/61; PULSE 95; TEMP 36.5
[2022-03-01] MEDS: Nicotine Polacrilex 2 MG GUM 4 MG BUCCAL ×8 (00:12→22:34)
[2022-03-01] MEDS: cloZAPine 25 MG TABLET PO ×2 (00:16→08:24)
[2022-03-01] MEDS: clonazePAM 0.5 MG TABLET PO ×2 (08:24→19:47)
[2022-03-01 09:08] LABS: Neut%MD 53.7 %; WBCANC 5.6 X10*3/uL
--- NOTE | 2022-03-01 10:50 | HO.PSYCHPN ---
Subjective Subjective Date of Service: 03/01/22 Reason For Visit: Psychosis Interim History: Patient remains psychotic and disorganized, giggling and laughing to himself; unable to engage with magnetic tape typewriter operator as he remains to severely internally preoccupied. Patient mimicking and repeating what some other peers say. He did take clozapine however Mental Status Exam Mental Status Exam Narrative: Pt is alert and oriented; behavior is disorganized, not cooperative; patient is not in distress; dressed in casual attire with close shaved head; mood and affect labile; eye contact poor; Speech is mumbled; psychomotor retardation and mild agitation present; thought process is disorganized due to internal preoccupation; Thought content is on undisclosed internally preoccupied thoughts; does not answer to questions about SI/HI. AH present and pt self-dialoguing; Patients insight and judgment impaired. Diagnostics Vital Signs (24Hr): Vital Signs - 24 hr 02/28/22 18:00 Temperature 97.7 F Pulse Rate 95 Blood Pressure 151/61 H BMI result Body Mass Index 21.1 Labs Results: 02/22/22 14:38 02/22/22 14:38 Labs: Laboratory Results - last 48 hr 03/01/22 08:16 Absolute Neuts (auto) 3.0 Medications Medications Current Medications Acetaminophen (Acetaminophen 325 Mg Tablet) 650 mg PO Q6H PRN PRN Reason: Headache/Pain Mild Scale (1-3) Al Hydroxide/Mg Hydroxide (Magnesium Hydrox/Alum Hydrox 30 Ml Oral.Susp) 30 ml PO Q6H PRN PRN Reason: Heartburn/Nausea Clonazepam (Clonazepam 0.5 Mg Tablet) 0.5 mg PO BID EUGENIA Last Admin: 03/01/22 08:24 Dose: 0.5 mg Clonazepam (Clonazepam 0.5 Mg Tablet) 0.5 mg PO DAILY PRN PRN Reason: anxiety Clozapine (Clozapine 25 Mg Tablet) 25 mg PO DAILY [facility] Clozapine (Clozapine 25 Mg Tablet) 50 mg PO BEDTIME EUGENIA Magnesium Hydroxide (Milk Of Magnesia 30 Ml Oral.Susp) 30 ml PO DAILY PRN PRN Reason: Constipation Nicotine Polacrilex (Nicotine Polacrilex 2 Mg Gum) 4 mg BUCCAL Q1H PRN PRN Reason: Nicotine Cravings Last Admin: 03/01/22 08:24 Dose: 4 mg Olanzapine (Olanzapine Odt 10 Mg Tab.Rapdis) 10 mg TRANSLINGU TID PRN PRN Reason: agitation Quetiapine Fumarate (Quetiapine Fumarate 50 Mg Tablet) 50 mg PO Q4H PRN PRN Reason: psychosis, agitation, anxiety Trazodone HCl (Trazodone Hcl 50 Mg Tablet) 50 mg PO BEDTIME PRN PRN Reason: Insomnia Allergies Allergies Allergy/AdvReac Type Severity Reaction Status Date / Time diphenhydramine Allergy Unknown unknown Verified 10/12/20 04:33 [From BENADRYL] haloperidol [From HALDOL] Allergy Unknown unknown Verified 10/12/20 04:33 paliperidone AdvReac Severe dystonia Verified 03/30/21 23:47 Assessment & Plan Assessment & Plan (1) Schizoaffective disorder, bipolar type: Status: Acute Code(s): F25.0 - Schizoaffective disorder, bipolar type Plan Jose is a 26 y.o. male with a history of schizoaffective disorder, bipolar type. Pt has hx of multiple previous inpatient admissions for psychotic sx i.e. religiosity, command AH, internal preoccupation, paranoid ideations, and agitation. Pt presented to [facility] ED on 02/22/22 after pt's mother called EMS because of non-adherence to medications. Per pharmacy records, pt last filled clozapine in 08/2021, however was non-adherent and OP provider Bennett Light switched him to abilify 10 mg daily on 01/26/2022. Pt has decompensated, psychotic and disorganized. -reportedly, patient was doing relatively well in the community until it became very difficult for visiting nurse to find patient to administer clozapine. 02/28 Patient disorganized in speech and behavior; no insight with significant thought blocking; internally preoccupied Mother reports patient has been wandering aimlessly, confused and disorganized in the streets, night eating, not recognizing family and has been overheard daily saying no briana, don't do it...you're a good gurjit... Which is the same behavior patient demonstrated in the past, just prior to cutting his neck, in a near lethal suicide attempt. Patient has history of auditory hallucinations commanding him to self-harm. Patient has no insight, is internally preoccupied disorganized in both speech and behavior and is in imminent risk for harm to self. Will petition the court for involuntary commitment and substituted judgment. -will restart clozapine which to magnetic tape typewriter operator's knowledge is the only medications that has been effective 03/01 remains floridly psychotic, disorganized but did take medications Plan: Q15 min safety checks 3 day notice due; [facility] for involuntary commitment and substituted judgment for patient's safety Titrate Clozapine 25 in AM and 50mg qhs (last time discharged on clozapine to 75 q.h.s.) ANC weekly (ANC 3.8 on 02/21/22) clonazepam 0.5mg bID (helped in past) Discontinue olanzapine for now (of only partial, limited effective; patient refusing) Discontinue Seroquel; patient refusing and overall to sedating to be effective Discontinue Abilify (not effective, patient refusing) Monitor response to medications. Monitor for safety in the milieu. Discharge on stabilization. Patient seen. Chart reviewed. Discussed with team. Obtain collateral contact info as needed I spent minutes with the patient and/or on the patient floor today, greater than?50% of which was spent counseling/coordinating care. Informed Consent: does not understand Reason for contiued inpatient stay Substantial Risk for: harm to self and inability to function
[2022-03-01 19:45] VITALS: BP 116/71; PULSE 110; RESP 18; TEMP 36.6; O2SAT 97
[2022-03-01] MEDS: cloZAPine 25 MG TABLET 50 MG PO (19:47)
[2022-03-02] MEDS: Nicotine Polacrilex 2 MG GUM 4 MG BUCCAL ×7 (06:42→21:10)
[2022-03-02] MEDS: clonazePAM 0.5 MG TABLET PO ×2 (09:20→18:18)
[2022-03-02] MEDS: cloZAPine 25 MG TABLET PO (09:21)
--- NOTE | 2022-03-02 10:45 | P.PNPSI_ITS ---
Subjective Subjective Date of Service: 03/02/22 Reason For Visit: Psychosis Interim History: Patient walking around unit, self dialoguing; also spitting in his room on the floor and on the wall. Patient's roommate reported feeling afraid of him. Patient has irritable edge and was difficult to engage. He said I am fine... What you want? He denied any AH and says he has never had any auditory hallucinations in his life. Container Crane Operator talked about how his mother was worried about him and he said she is always worried. Patient said abruptly any more questions? and said he does not want to talk to food writer anymore. took medications Mental Status Exam Mental Status Exam Narrative: Pt is alert and oriented; behavior is disorganized, not cooperative; patient is not in distress; dressed in casual attire with close shaved head; mood good but affect constricted; poor eye contact poor; Speech is low volume; some psychomotor agitation present; thought process is goal oriented; Thought content is on undisclosed internally preoccupied thoughts; denies SI/HI. Denies AH but pt self-dialoguing, laughing to himself, answering questions throughout the day and appears internally preoccupied; Patients insight and judgment impaired. Diagnostics Vital Signs (24Hr): Vital Signs - 24 hr 03/01/22 19:45 Temperature 97.9 F Pulse Rate 110 H Respiratory Rate 18 Blood Pressure 116/71 Pulse Oximetry 97 Oxygen Delivery Method Room Air BMI result Body Mass Index 21.1 Labs Results: 02/22/22 14:38 02/22/22 14:38 Labs: Laboratory Results - last 48 hr 03/01/22 08:16 Absolute Neuts (auto) 3.0 Medications Medications Current Medications Acetaminophen (Acetaminophen 325 Mg Tablet) 650 mg PO Q6H PRN PRN Reason: Headache/Pain Mild Scale (1-3) Al Hydroxide/Mg Hydroxide (Magnesium Hydrox/Alum Hydrox 30 Ml Oral.Susp) 30 ml PO Q6H PRN PRN Reason: Heartburn/Nausea Clonazepam (Clonazepam 0.5 Mg Tablet) 0.5 mg PO BID [facility] Last Admin: 03/02/22 09:20 Dose: 0.5 mg Clonazepam (Clonazepam 0.5 Mg Tablet) 0.5 mg PO DAILY PRN PRN Reason: anxiety Clozapine (Clozapine 25 Mg Tablet) 25 mg PO DAILY [facility] Last Admin: 03/02/22 09:21 Dose: 25 mg Clozapine (Clozapine 25 Mg Tablet) 75 mg PO BEDTIME [facility] Magnesium Hydroxide (Milk Of Magnesia 30 Ml Oral.Susp) 30 ml PO DAILY PRN PRN Reason: Constipation Nicotine Polacrilex (Nicotine Polacrilex 2 Mg Gum) 4 mg BUCCAL Q1H PRN PRN Reason: Nicotine Cravings Last Admin: 03/02/22 09:22 Dose: 4 mg Olanzapine (Olanzapine Odt 10 Mg Tab.Rapdis) 10 mg TRANSLINGU TID PRN PRN Reason: agitation Quetiapine Fumarate (Quetiapine Fumarate 50 Mg Tablet) 50 mg PO Q4H PRN PRN Reason: psychosis, agitation, anxiety Trazodone HCl (Trazodone Hcl 50 Mg Tablet) 50 mg PO BEDTIME PRN PRN Reason: Insomnia Allergies Allergies Allergy/AdvReac Type Severity Reaction Status Date / Time diphenhydramine Allergy Unknown unknown Verified 10/12/20 04:33 [From BENADRYL] haloperidol [From HALDOL] Allergy Unknown unknown Verified 10/12/20 04:33 paliperidone AdvReac Severe dystonia Verified 03/30/21 23:47 Assessment & Plan Assessment & Plan (1) Schizoaffective disorder, bipolar type: Status: Acute Code(s): F25.0 - Schizoaffective disorder, bipolar type Plan Jose is a 26 y.o. male with a history of schizoaffective disorder, bipolar type. Pt has hx of multiple previous inpatient admissions for psychotic sx i.e. religiosity, command AH, internal preoccupation, paranoid ideations, and agitation. Pt presented to [facility] ED on 02/22/22 after pt's mother called EMS because of non-adherence to medications. Per pharmacy records, pt last filled clozapine in 08/2021, however was non-adherent and OP provider Bennett Light switched him to abilify 10 mg daily on 01/26/2022. Pt has decompensated, psychotic and disorganized. -reportedly, patient was doing relatively well in the community until it became very difficult for visiting nurse to find patient to administer clozapine. 02/28 Patient disorganized in speech and behavior; no insight with significant thought blocking; internally preoccupied Mother reports patient has been wandering aimlessly, confused and disorganized in the streets, night eating, not recognizing family and has been overheard daily saying no briana, don't do it...you're a good gurjit... Which is the same b shilpa patient demonstrated in the past, just prior to cutting his neck, in a near lethal suicide attempt. Patient has history of auditory hallucinations commanding him to self-harm. Patient has no insight, is internally preoccupied disorganized in both speech and behavior and is in imminent risk for harm to self. Will petition the court for involuntary commitment and substituted judgment. -will restart clozapine which to food writer's knowledge is the only medications that has been effective 03/01 remains floridly psychotic, disorganized but did take medications 03/02 patient more able to have a conversation and is goal oriented, however difficult to engage; has no insight at all into psychiatric illness. He said he will take medications so that he can get out of here. Disorganized behaviors, internally preoccupied, talking to himself, spitting on the floor and the wall. At this time, food writer does not think patient will continue taking medications on discharge and that he needs more time to stabilize in order to remain safe in the community. Plan: Q15 min safety checks [facility] for involuntary commitment and substituted judgment for patient's safety Titrate Clozapine 25 in AM and 75mg qhs (last time discharged on clozapine 275 q.h.s.) ANC weekly (ANC 3.0 on 03/01/22) clonazepam 0.5mg bID (helped in past) Discontinue olanzapine for now (of only partial, limited effective; patient refusing) Discontinue Seroquel; patient refusing and overall to sedating to be effective Discontinue Abilify (not effective, patient refusing) Monitor response to medications. Monitor for safety in the milieu. Discharge on stabilization. Patient seen. Chart reviewed. Discussed with team. Obtain collateral contact info as needed I spent minutes with the patient and/or on the patient floor today, greater than?50% of which was spent counseling/coordinating care. Patient educated on: diagnosis and medication risk/benefits Informed Consent: does not understand and further education needed Reason for contiued inpatient stay Substantial Risk for: harm to self and rapid decompensation
[2022-03-02 15:52] VITALS: BP 133/77; PULSE 101; TEMP 36.5
[2022-03-02] MEDS: cloZAPine 25 MG TABLET 75 MG PO (18:17)
[2022-03-03] MEDS: Nicotine Polacrilex 2 MG GUM 4 MG BUCCAL ×7 (06:33→21:26)
[2022-03-03 16:10] VITALS: RESP 16
--- NOTE | 2022-03-03 16:41 | P.PNPSI_ITS ---
Subjective Subjective Date of Service: 03/03/22 Reason For Visit: Psychosis Interim History: Raucous and loud last night in disorganized way; Refused medications this morning saying he wants them only at bedtime; television writer agreed to switch them. Otherwise very difficult to engage. Mental Status Exam Mental Status Exam Narrative: Pt is alert and oriented; behavior is disorganized, not cooperative; patient is not in distress; dressed in casual attire with close shaved head; mood irritable; affect constricted; poor eye contact poor; Speech is low volume; some psychomotor agitation present; thought process is goal oriented; Thought content is on undisclosed internally preoccupied thoughts; denies SI/HI. Denies AH but pt self-dialoguing, laughing to himself, answering questions throughout the day and appears internally preoccupied; Patients insight and judgment impaired. Diagnostics Vital Signs (24Hr): Vital Signs - 24 hr 03/03/22 16:10 Respiratory Rate 16 BMI result Body Mass Index 21.1 Labs Results: 02/22/22 14:38 02/22/22 14:38 Medications Medications Current Medications Acetaminophen (Acetaminophen 325 Mg Tablet) 650 mg PO Q6H PRN PRN Reason: Headache/Pain Mild Scale (1-3) Al Hydroxide/Mg Hydroxide (Magnesium Hydrox/Alum Hydrox 30 Ml Oral.Susp) 30 ml PO Q6H PRN PRN Reason: Heartburn/Nausea Clonazepam (Clonazepam 0.5 Mg Tablet) 0.5 mg PO BID [facility] Last Admin: 03/03/22 12:18 Dose: Not Given Clonazepam (Clonazepam 0.5 Mg Tablet) 0.5 mg PO DAILY PRN PRN Reason: anxiety Clozapine (Clozapine Odt 25 Mg Tab.Rapdis) 125 mg PO BEDTIME [facility] Magnesium Hydroxide (Milk Of Magnesia 30 Ml Oral.Susp) 30 ml PO DAILY PRN PRN Reason: Constipation Nicotine Polacrilex (Nicotine Polacrilex 2 Mg Gum) 4 mg BUCCAL Q1H PRN PRN Reason: Nicotine Cravings Last Admin: 03/03/22 15:54 Dose: 4 mg Olanzapine (Olanzapine Odt 10 Mg Tab.Rapdis) 10 mg TRANSLINGU TID PRN PRN Reason: agitation Quetiapine Fumarate (Quetiapine Fumarate 50 Mg Tablet) 50 mg PO Q4H PRN PRN Reason: psychosis, agitation, anxiety Trazodone HCl (Trazodone Hcl 50 Mg Tablet) 50 mg PO BEDTIME PRN PRN Reason: Insomnia Allergies Allergies Allergy/AdvReac Type Severity Reaction Status Date / Time diphenhydramine Allergy Unknown unknown Verified 10/12/20 04:33 [From BENADRYL] haloperidol [From HALDOL] Allergy Unknown unknown Verified 10/12/20 04:33 paliperidone AdvReac Severe dystonia Verified 03/30/21 23:47 Assessment & Plan Assessment & Plan (1) Schizoaffective disorder, bipolar type: Status: Acute Code(s): F25.0 - Schizoaffective disorder, bipolar type Plan Jose is a 26 y.o. male with a history of schizoaffective disorder, bipolar type. Pt has hx of multiple previous inpatient admissions for psychotic sx i.e. religiosity, command AH, internal preoccupation, paranoid ideations, and agitation. Pt presented to [facility] on 02/22/22 after pt's mother called EMS because of non-adherence to medications. Per pharmacy records, pt last filled clozapine in 08/2021, however was non-adherent and OP provider Bennett Light switched him to abilify 10 mg daily on 01/26/2022. Pt has decompensated, psychotic and disorganized. -reportedly, patient was doing relatively well in the community until it became very difficult for visiting nurse to find patient to administer clozapine. 02/28 Patient disorganized in speech and behavior; no insight with significant th ought blocking; internally preoccupied Mother reports patient has been wandering aimlessly, confused and disorganized in the streets, night eating, not recognizing family and has been overheard daily saying no briana, don't do it...you're a good gurjit... Which is the same behavior patient demonstrated in the past, just prior to cutting his neck, in a near lethal suicide attempt. Patient has history of auditory hallucinations commanding him to self-harm. Patient has no insight, is internally preoccupied disorganized in both speech and behavior and is in imminent risk for harm to self. Will petition the court for involuntary commitment and substituted judgment. -will restart clozapine which to television writer's knowledge is the only medications that has been effective 03/01 remains floridly psychotic, disorganized but did take medications 03/02 patient more able to have a conversation and is goal oriented, however difficult to engage; has no insight at all into psychiatric illness. He said he will take medications so that he can get out of here. Disorganized behaviors, internally preoccupied, talking to himself, spitting on the floor and the wall. At this time, television writer does not think patient will continue taking medications on discharge and that he needs more time to stabilize in order to remain safe in the community. 03/03 Remains disorganized and difficult To engage. Will switch clozapine to oral disintegrating tablets to help better ensure compliance as patient has history of cheeking medications. Plan: Q15 min safety checks [facility] for involuntary commitment and substituted judgment for patient's safety Titrate Clozapine 125mg qhs (last time discharged on clozapine 275 q.h.s.) ANC weekly (ANC 3.0 on 03/01/22) clonazepam 0.5mg bID (helped in past); will switch to afternoon and evening since sleeps in much of morning. Discontinue olanzapine for now (of only partial, limited effective; patient refusing) Discontinue Seroquel; patient refusing and overall to sedating to be effective Discontinue Abilify (not effective, patient refusing) Monitor response to medications. Monitor for safety in the milieu. Discharge on stabilization. Patient seen. Chart reviewed. Discussed with team. Obtain collateral contact info as needed I spent minutes with the patient and/or on the patient floor today, greater than?50% of which was spent counseling/coordinating care. Patient educated on: medication risk/benefits Informed Consent: further education needed Reason for contiued inpatient stay Substantial Risk for: harm to self and inability to function
[2022-03-03] MEDS: clonazePAM 0.5 MG TABLET PO (18:09)
[2022-03-03] MEDS: cloZAPine ODT 25 MG TAB.RAPDIS 125 MG PO (19:38)
[2022-03-04] MEDS: Nicotine Polacrilex 2 MG GUM 4 MG BUCCAL ×4 (08:43→22:05)
--- NOTE | 2022-03-04 17:01 | P.PNPSI_ITS ---
Subjective Subjective Date of Service: 03/04/22 Reason For Visit: Psychosis Interim History: Patient in bedroom, having a full conversation with himself, answering questions that are clearly originating from internal preoccupation. He stops as senior technical writer approached. Patient polite and friendly today. He says he is good and doing well. He is watching a movie and he and senior technical writer joke about. Patient reports he is sleeping well and that he would like his medications to be increased as fabian ckly as possible so that he can go home soon. Otherwise no complaints and no requests. As soon as senior technical writer leaves the room, he again starts up with his internally originated conversation. Mental Status Exam Mental Status Exam Narrative: Pt is alert and oriented; behavior is disorganized, but more calm and cooperative; patient is not in distress; dressed in casual attire with close sha cale head; mood is good and affect less constricted; adequate eye contact; Speech is low volume; no psychomotor agitation present; thought process is goal oriented; Thought content is on discharge; also on undisclosed internally preoccupied thoughts; denies SI/HI. Denies AH but pt self-dialoguing, laughing to himself, answering questions throughout the day and appears internally preoccupied; Patients insight and judgment impaired but seem improved. Diagnostics Vital Signs (24Hr): BMI result Body Mass Index 21.1 Labs Results: 02/22/22 14:38 02/22/22 14:38 Medications Medications Current Medications Acetaminophen (Acetaminophen 325 Mg Tablet) 650 mg PO Q6H PRN PRN Reason: Headache/Pain Mild Scale (1-3) Al Hydroxide/Mg Hydroxide (Magnesium Hydrox/Alum Hydrox 30 Ml Oral.Susp) 30 ml PO Q6H PRN PRN Reason: Heartburn/Nausea Clonazepam (Clonazepam 0.5 Mg Tablet) 0.5 mg PO DAILY PRN PRN Reason: anxiety Clonazepam (Clonazepam 0.5 Mg Tablet) 0.5 mg PO BID@1300,1900 [facility] Last Admin: 03/04/22 13:20 Dose: Not Given Clozapine (Clozapine Odt 25 Mg Tab.Rapdis) 125 mg PO BEDTIME [facility] Last Admin: 03/03/22 19:38 Dose: 125 mg Magnesium Hydroxide (Milk Of Magnesia 30 Ml Oral.Susp) 30 ml PO DAILY PRN PRN Reason: Constipation Nicotine Polacrilex (Nicotine Polacrilex 2 Mg Gum) 4 mg BUCCAL Q1H PRN PRN Reason: Nicotine Cravings Last Admin: 03/04/22 16:54 Dose: 4 mg Olanzapine (Olanzapine Odt 10 Mg Tab.Rapdis) 10 mg TRANSLINGU TID PRN PRN Reason: agitation Quetiapine Fumarate (Quetiapine Fumarate 50 Mg Tablet) 50 mg PO Q4H PRN PRN Reason: psychosis, agitation, anxiety Trazodone HCl (Trazodone Hcl 50 Mg Tablet) 50 mg PO BEDTIME PRN PRN Reason: Insomnia Allergies Allergies Allergy/AdvReac Type Severity Reaction Status Date / Time diphenhydramine Allergy Unknown unknown Verified 10/12/20 04:33 [From BENADRYL] haloperidol [From HALDOL] Allergy Unknown unknown Verified 10/12/20 04:33 paliperidone AdvReac Severe dystonia Verified 03/30/21 23:47 Assessment & Plan Assessment & Plan (1) Schizoaffective disorder, bipolar type: Status: Acute Code(s): F25.0 - Schizoaffective disorder, bipolar type Plan Jose is a 26 y.o. male with a history of schizoaffective disorder, bipolar type. Pt has hx of multiple previous inpatient admissions for psychotic sx i.e. religiosity, command AH, internal preoccupation, paranoid ideations, and agitation. Pt presented to [facility] on 02/22/22 after pt's mother called EMS because of non-adherence to medications. Per pharmacy records, pt last filled clozapine in 08/2021, however was non-adherent and OP provider Benntet Light switched him to abilify 10 mg daily on 01/26/2022. Pt has decompensated, psychotic and disorganized. -reportedly, patient was doing relatively well in the community until it became very difficult for visiting nurse to find patient to administer clozapine. 02/28 Patient disorganized in speech and behavior; no insight with significant thought blocking; internally preoccupied Mother reports patient has been wandering aimlessly, confused and disorganized in the streets, night eating, not recognizing family and has been overheard daily saying no briana, don't do it...you're a good gurjit... Which is the same behavior patient demonstrated in the past, just prior to cutting his neck, in a near lethal suicide attempt. Patient has history of auditory hallucinations commanding him to self-harm. Patient has no insight, is internally preoccupied disorganized in both speech and behavior and is in imminent risk for harm to self. Will petition the court for involuntary commitment and substituted judgment. -will restart clozapine which to senior technical writer's knowledge is the only medications that has been effective 03/01 remains floridly psychotic, disorganized but did take medications 03/02 patient more able to have a conversation and is goal oriented, however difficult to engage; has no insight at all into psychiatric illness. He said he will take medications so that he can get out of here. Disorganized behaviors, internally preoccupied, talking to himself, spitting on the floor and the wall. At this time, senior technical writer does not think patient will continue taking medications on discharge and that he needs more time to stabilize in order to remain safe in the community. 03/03 Remains disorganized and difficult To engage. Will switch clozapine to oral disintegrating tablets to help better ensure compliance as patient has history of cheeking medications. 03/04 patient more friendly today and willing to have brief, polite discussion; wants medications increased so that he can discharges soon as possible. Remains with disorganized behaviors and engaged in internal dialogue with himself, however he stops this on approach and is able to more or less, appropriately interact with staff. Plan: Q15 min safety checks [facility] for involuntary commitment and substituted judgment for patient's safety Increased to Clozapine 150mg qhs (last time discharged on clozapine 275 q.h.s.) ANC weekly (ANC 3.0 on 03/01/22) clonazepam 0.5mg bID (helped in past); will switch to afternoon and evening since sleeps in much of morning. Discontinue olanzapine for now (of only partial, limited effective; patient refusing) Discontinue Seroquel; patient refusing and overall to sedating to be effective Discontinue Abilify (not effective, patient refusing) Monitor response to medications. Monitor for safety in the milieu. Discharge on stabilization. Patient seen. Chart reviewed. Discussed with team. Obtain collateral contact info as needed I spent minutes with the patient and/or on the patient floor today, greater than?50% of which was spent counseling/coordinating care. Patient educated on: medication risk/benefits Informed Consent: understands and further education needed Reason for contiued inpatient stay Substantial Risk for: rapid decompensation
[2022-03-04 18:00] VITALS: BP 128/72; PULSE 94; RESP 16; TEMP 37.1
[2022-03-04] MEDS: cloZAPine ODT 25 MG TAB.RAPDIS 150 MG PO (22:05)
[2022-03-04] MEDS: clonazePAM 0.5 MG TABLET PO (22:05)
[2022-03-05] MEDS: Nicotine Polacrilex 2 MG GUM 4 MG BUCCAL ×5 (09:08→21:21)
--- NOTE | 2022-03-05 14:21 | HO.PSYCHPN ---
Subjective Subjective Date of Service: 03/05/22 Reason For Visit: Psychosis Interim History: Patient more stand office today and not willing to look at automatic typewriter inspector or engage much. He says he is fine and turns away. Remains self dialoguing; mostly isolative Mental Status Exam Mental Status Exam Narrative: Pt is alert and oriented; behavior is disorganized, but more calm; patient is not in distress; dressed in casual attire with close shaved head; mood is fine and affect constricted; limited eye contact; Speech is low volume; no psychomotor agitation present; thought process is goal oriented; Thought content is on discharge; also on undisclosed internally preoccupied thoughts; denies SI/HI. Denies AH but pt self-dialoguing, laughing to himself, answering questions throughout the day and appears internally preoccupied; Patients insight and judgment impaired but seem improved. Diagnostics Vital Signs (24Hr): Vital Signs - 24 hr 03/04/22 18:00 Temperature 98.7 F Pulse Rate 94 Respiratory Rate 16 Blood Pressure 128/72 BMI result Body Mass Index 21.1 Labs Results: 02/22/22 14:38 02/22/22 14:38 Medications Medications Current Medications Acetaminophen (Acetaminophen 325 Mg Tablet) 650 mg PO Q6H PRN PRN Reason: Headache/Pain Mild Scale (1-3) Al Hydroxide/Mg Hydroxide (Magnesium Hydrox/Alum Hydrox 30 Ml Oral.Susp) 30 ml PO Q6H PRN PRN Reason: Heartburn/Nausea Clonazepam (Clonazepam 0.5 Mg Tablet) 0.5 mg PO DAILY PRN PRN Reason: anxiety Clonazepam (Clonazepam 0.5 Mg Tablet) 0.5 mg PO BEDTIME EUGENIA Clozapine (Clozapine Odt 25 Mg Tab.Rapdis) 175 mg PO BEDTIME EUGENIA Magnesium Hydroxide (Milk Of Magnesia 30 Ml Oral.Susp) 30 ml PO DAILY PRN PRN Reason: Constipation Nicotine Polacrilex (Nicotine Polacrilex 2 Mg Gum) 4 mg BUCCAL Q1H PRN PRN Reason: Nicotine Cravings Last Admin: 03/05/22 13:05 Dose: 4 mg Olanzapine (Olanzapine Odt 10 Mg Tab.Rapdis) 10 mg TRANSLINGU TID PRN PRN Reason: agitation Quetiapine Fumarate (Quetiapine Fumarate 50 Mg Tablet) 50 mg PO Q4H PRN PRN Reason: psychosis, agitation, anxiety Trazodone HCl (Trazodone Hcl 50 Mg Tablet) 50 mg PO BEDTIME PRN PRN Reason: Insomnia Allergies Allergies Allergy/AdvReac Type Severity Reaction Status Date / Time diphenhydramine Allergy Unknown unknown Verified 10/12/20 04:33 [From BENADRYL] haloperidol [From HALDOL] Allergy Unknown unknown Verified 10/12/20 04:33 paliperidone AdvReac Severe dystonia Verified 03/30/21 23:47 Assessment & Plan Assessment & Plan (1) Schizoaffective disorder, bipolar type: Status: Acute Code(s): F25.0 - Schizoaffective disorder, bipolar type Plan Jose is a 26 y.o. male with a history of schizoaffective disorder, bipolar type. Pt has hx of multiple previous inpatient admissions for psychotic sx i.e. religiosity, command AH, internal preoccupation, paranoid ideations, and agitation. Pt presented to [facility] ED on 02/22/22 after pt's mother called EMS because of non-adherence to medications. Per pharmacy records, pt last filled clozapine in 08/2021, however was non-adherent and OP provider Bennett Light switched him to abilify 10 mg daily on 01/26/2022. Pt has decompensated, psychotic and disorganized. -reportedly, patient was doing relatively well in the community until it became very difficult for visiting nurse to find patient to administer clozapine. 02/28 Patient disorganized in speech and behavior; no insight with significant thought blocking; internally preoccupied Mother reports patient has been wandering aimlessly, confused and disorganized in the streets, night eating, not recognizing family and has been overheard daily saying no briana, don't do it...you're a good gurjit... Which is the same behavior patient demonstrated in the past, just prior to cutting his neck, in a near lethal suicide attempt. Patient has history of auditory hallucinations commanding him to self-harm. Patient has no insight, is internally preoccupied disorganized in both speech and behavior and is in imminent risk for harm to self. Will petition the court for involuntary commitment and substituted judgment. -will restart clozapine which to automatic typewriter inspector's knowledge is the only medications that has been effective 03/01 remains floridly psychotic, disorganized but did take medications 8/11 patient more able to have a conversation and is goal oriented, however difficult to engage; has no insight at all into psychiatric illness. He said he will take medications so that he can get out of here. Disorganized behaviors, internally preoccupied, talking to himself, spitting on the floor and the wall. At this time, automatic typewriter inspector does not think patient will continue taking medications on discharge and that he needs more time to stabilize in order to remain safe in the community. 03/03 Remains disorganized and difficult To engage. Will switch clozapine to oral disintegrating tablets to help better ensure compliance as patient has history of cheeking medications. 03/04 patient more friendly today and willing to have brief, polite discussion; wants medications increased so that he can discharges soon as possible. Remains with disorganized behaviors and engaged in internal dialogue with himself, however he stops this on approach and is able to more or less, appropriately interact with staff. Plan: Q15 min safety checks [facility] for involuntary commitment and substituted judgment for patient's safety Increased to Clozapine 175mg qhs (last time discharged on clozapine 275 q.h.s.) ANC weekly (ANC 3.0 on 03/01/22) clonazepam 0.5mg bID (helped in past); will switch to afternoon and evening since sleeps in much of morning. Discontinue olanzapine for now (of only partial, limited effective; patient refusing) Discontinue Seroquel; patient refusing and overall to sedating to be effective Discontinue Abilify (not effective, patient refusing) Monitor response to medications. Monitor for safety in the milieu. Discharge on stabilization. Patient seen. Chart reviewed. Discussed with team. Obtain collateral contact info as needed I spent minutes with the patient and/or on the patient floor today, greater than?50% of which was spent counseling/coordinating care. Reason for contiued inpatient stay Substantial Risk for: inability to function and rapid decompensation
[2022-03-05 17:12] VITALS: BP 136/72; PULSE 108; RESP 16; O2SAT 98
[2022-03-05] MEDS: clonazePAM 0.5 MG TABLET PO ×2 (18:39→21:18)
[2022-03-05] MEDS: cloZAPine ODT 25 MG TAB.RAPDIS 175 MG PO (21:18)
[2022-03-06 06:00] VITALS: BP 137/79; PULSE 104; RESP 18; TEMP 36.3; O2SAT 100
[2022-03-06] MEDS: Nicotine Polacrilex 2 MG GUM 4 MG BUCCAL ×8 (10:06→22:10)
--- NOTE | 2022-03-06 10:30 | P.PNPSI_ITS ---
Subjective Subjective Date of Service: 03/06/22 Reason For Visit: Psychosis Interim History: Most Isolative. Remains internally preoccupied and self dialoguing. Says friendly hello but remains difficult to engage; denies all psychiatric symptoms. Continues to take medications. Mental Status Exam Mental Status Exam Narrative: Pt is alert and oriented; behavior is disorganized, but more calm; patient is not in distress; dressed in casual attire with close shaved head; mood is good and affect constricted; limited eye contact; Speech is normal volume; no psychomotor agitation present; thought process is goal oriented; Thought content is on discharge; also on undisclosed internally preoccupied thoughts; denies SI/HI. Denies AH but pt self-dialoguing, laughing to himself, answering questions throughout the day and appears internally preoccupied; Patients insight and judgment impaired but seem improved. Diagnostics Vital Signs (24Hr): Vital Signs - 24 hr 03/05/22 17:12 03/06/22 06:00 Temperature 97.4 F Pulse Rate 108 H 104 H Respiratory Rate 16 18 Blood Pressure 136/72 137/79 Pulse Oximetry 98 100 Oxygen Delivery Method Room Air Room Air BMI result Body Mass Index 21.1 Labs Results: 02/22/22 14:38 02/22/22 14:38 Medications Medications Current Medications Acetaminophen (Acetaminophen 325 Mg Tablet) 650 mg PO Q6H PRN PRN Reason: Headache/Pain Mild Scale (1-3) Al Hydroxide/Mg Hydroxide (Magnesium Hydrox/Alum Hydrox 30 Ml Oral.Susp) 30 ml PO Q6H PRN PRN Reason: Heartburn/Nausea Clonazepam (Clonazepam 0.5 Mg Tablet) 0.5 mg PO DAILY PRN PRN Reason: anxiety Last Admin: 03/05/22 18:39 Dose: 0.5 mg Clonazepam (Clonazepam 0.5 Mg Tablet) 0.5 mg PO BEDTIME EUGENIA Last Admin: 03/05/22 21:18 Dose: 0.5 mg Clozapine (Clozapine Odt 25 Mg Tab.Rapdis) 175 mg PO BEDTIME EUGENIA Last Admin: 03/05/22 21:18 Dose: 175 mg Magnesium Hydroxide (Milk Of Magnesia 30 Ml Oral.Susp) 30 ml PO DAILY PRN PRN Reason: Constipation Nicotine Polacrilex (Nicotine Polacrilex 2 Mg Gum) 4 mg BUCCAL Q1H PRN PRN Reason: Nicotine Cravings Last Admin: 03/06/22 10:06 Dose: 4 mg Olanzapine (Olanzapine Odt 10 Mg Tab.Rapdis) 10 mg TRANSLINGU TID PRN PRN Reason: agitation Quetiapine Fumarate (Quetiapine Fumarate 50 Mg Tablet) 50 mg PO Q4H PRN PRN Reason: psychosis, agitation, anxiety Trazodone HCl (Trazodone Hcl 50 Mg Tablet) 50 mg PO BEDTIME PRN PRN Reason: Insomnia Allergies Allergies Allergy/AdvReac Type Severity Reaction Status Date / Time diphenhydramine Allergy Unknown unknown Verified 10/12/20 04:33 [From BENADRYL] haloperidol [From HALDOL] Allergy Unknown unknown Verified 10/12/20 04:33 paliperidone AdvReac Severe dystonia Verified 03/30/21 23:47 Assessment & Plan Assessment & Plan (1) Schizoaffective disorder, bipolar type: Status: Acute Code(s): F25.0 - Schizoaffective disorder, bipolar type Plan Jose is a 26 y.o. male with a history of schizoaffective disorder, bipolar type. Pt has hx of multiple previous inpatient admissions for psychotic sx i.e. religiosity, command AH, internal preoccupation, paranoid ideations, and agitation. Pt presented to [facility] ED on 02/22/22 after pt's mother called EMS b ecause of non-adherence to medications. Per pharmacy records, pt last filled clozapine in 08/2021, however was non-adherent and OP provider Bennett Light switched him to abilify 10 mg daily on 01/26/2022. Pt has decompensated, psychotic and disorganized. -reportedly, patient was doing relatively well in the community until it became very difficult for visiting nurse to find patient to administer clozapine. 02/28 Patient disorganized in speech and behavior; no insight with significant thought blocking; internally preoccupied Mother reports patient has been wandering aimlessly, confused and disorganized in the streets, night eating, not recognizing family and has been overheard daily saying no briana, don't do it...you're a good gurjit... Which is the same behavior patient demonstrated in the past, just prior to cutting his neck, in a near lethal suicide attempt. Patient has history of auditory hallucinations commanding him to self-harm. Patient has no insight, is internally preoccupied disorganized in both speech and behavior and is in imminent risk for harm to self. Will petition the court for involuntary commitment and substituted judgment. -will restart clozapine which to insurance writer's knowledge is the only medications that has been effective 03/01 remains floridly psychotic, disorganized but did take medications 03/02 patient more able to have a conversation and is goal oriented, however difficult to engage; has no insight at all into psychiatric illness. He said he will take medications so that he can get out of here. Disorganized behaviors, internally preoccupied, talking to himself, spitting on the floor and the wall. At this time, insurance writer does not think patient will continue taking medications on discharge and that he needs more time to stabilize in order to remain safe in the community. 03/03 Remains disorganized and difficult To engage. Will switch clozapine to oral disintegrating tablets to help better ensure compliance as patient has history of cheeking medications. 03/04 patient more friendly today and willing to have brief, polite discussion; wants medications increased so that he can discharges soon as possible. Remains with disorganized behaviors and engaged in internal dialogue with himself, however he stops this on approach and is able to more or less, appropriately interact with staff. 03/06 Patient mostly keeps to himself During which time he will self dialogue and is clearly internally preoccupied; however when he needs some thin or interacts with staff, he is able to be outward focused and goal oriented Plan: Q15 min safety checks [facility] for involuntary commitment and substituted judgment for patient's safety Increased to Clozapine 200mg qhs (last time discharged on clozapine 275 q.h.s.) ANC weekly (ANC 3.0 on 03/01/22) clonazepam 0.5mg bID (helped in past); will switch to afternoon and evening since sleeps in much of morning. Discontinue olanzapine for now (of only partial, limited effective; patient refusing) Discontinue Seroquel; patient refusing and overall to sedating to be effective Discontinue Abilify (not effective, patient refusing) Monitor response to medications. Monitor for safety in the milieu. Discharge on stabilization. Patient seen. Chart reviewed. Discussed with team. Obtain collateral contact info as needed I spent minutes with the patient and/or on the patient floor today, greater than?50% of which was spent counseling/coordinating care. Reason for contiued inpatient stay Substantial Risk for: rapid decompensation
[2022-03-06] MEDS: clonazePAM 0.5 MG TABLET PO (20:12)
[2022-03-06] MEDS: cloZAPine ODT 25 MG TAB.RAPDIS 200 MG PO (20:48)
[2022-03-07] MEDS: Nicotine Polacrilex 2 MG GUM 4 MG BUCCAL ×6 (00:08→18:24)
--- NOTE | 2022-03-07 17:02 | HO.PSYCHPN ---
Subjective Subjective Date of Service: 03/07/22 Reason For Visit: Psychosis Interim History: continues to self-dialogue and remains deeply internally pre-occupied to the point where he is having what sounds like a 2person conversation with himself. Pt stops when addressed, denies it and while conversing with staff is able to have an appropriate dialogue. However if there is enough of a pause in converasation, pt will go back to self-dialoguing. Otherwise, pt has no unsafe behaviors and is able to appropriately and wittily joke with staff; isolates but mostly appropriate. Compliant with meds Mental Status Exam Mental Status Exam Narrative: Pt is alert and oriented; behavior is mostly organized when needs to be; patient is not in distress; dressed in casual attire with close shaved head; mood is good and affect more relaxed; adequate; eye contact; Speech is normal volume; no psychomotor agitation present; thought process is goal oriented; Thought content is on discharge; also on undisclosed internally preoccupied thoughts; denies SI/HI. Denies AH but pt self-dialoguing, laughing to himself, answering questions throughout the day and appears internally preoccupied; Patients insight and judgment impaired but seem improved. Diagnostics Vital Signs (24Hr): BMI result Body Mass Index 21.1 Labs Results: 02/22/22 14:38 02/22/22 14:38 Medications Medications Current Medications Acetaminophen (Acetaminophen 325 Mg Tablet) 650 mg PO Q6H PRN PRN Reason: Headache/Pain Mild Scale (1-3) Al Hydroxide/Mg Hydroxide (Magnesium Hydrox/Alum Hydrox 30 Ml Oral.Susp) 30 ml PO Q6H PRN PRN Reason: Heartburn/Nausea Clonazepam (Clonazepam 0.5 Mg Tablet) 0.5 mg PO DAILY PRN PRN Reason: anxiety Last Admin: 03/05/22 18:39 Dose: 0.5 mg Clonazepam (Clonazepam 0.5 Mg Tablet) 0.5 mg PO BEDTIME EUGENIA Last Admin: 03/06/22 20:12 Dose: 0.5 mg Clozapine (Clozapine Odt 25 Mg Tab.Rapdis) 225 mg PO BEDTIME EUGENIA Magnesium Hydroxide (Milk Of Magnesia 30 Ml Oral.Susp) 30 ml PO DAILY PRN PRN Reason: Constipation Nicotine Polacrilex (Nicotine Polacrilex 2 Mg Gum) 4 mg BUCCAL Q1H PRN PRN Reason: Nicotine Cravings Last Admin: 03/07/22 16:18 Dose: 2 mg Olanzapine (Olanzapine Odt 10 Mg Tab.Rapdis) 10 mg TRANSLINGU TID PRN PRN Reason: agitation Quetiapine Fumarate (Quetiapine Fumarate 50 Mg Tablet) 50 mg PO Q4H PRN PRN Reason: psychosis, agitation, anxiety Trazodone HCl (Trazodone Hcl 50 Mg Tablet) 50 mg PO BEDTIME PRN PRN Reason: Insomnia Allergies Allergies Allergy/AdvReac Type Severity Reaction Status Date / Time diphenhydramine Allergy Unknown unknown Verified 10/12/20 04:33 [From BENADRYL] haloperidol [From HALDOL] Allergy Unknown unknown Verified 10/12/20 04:33 paliperidone AdvReac Severe dystonia Verified 03/30/21 23:47 Assessment & Plan Assessment & Plan (1) Schizoaffective disorder, bipolar type: Status: Acute Code(s): F25.0 - Schizoaffective disorder, bipolar type Plan Jose is a 26 y.o. male with a history of schizoaffective disorder, bipolar type. Pt has hx of multiple previous inpatient admissions for psychotic sx i.e. religiosity, command AH, internal preoccupation, paranoid ideations, and agitation. Pt presented to [facility] ED on 02/22/22 after pt's mother called EMS because of non-adherence to medications. Per pharmacy records, pt last filled clozapine in 08/2021, however was non-adherent and OP provider Bennett Light switched him to abilify 10 mg daily on 01/26/2022. Pt has decompensated, psychotic and disorganized. -reportedly, patient was doing relatively well in the community until it became very difficult for visiting nurse to find patient to administer clozapine. 02/28 Patient disorganized in speech and behavior; no insight with significant thought blocking; internally preoccupied Mother reports patient has been wandering aimlessly, confused and disorganized in the streets, night eating, not recognizing family and has been overheard daily saying no briana, don't do it...you're a good gurjit... Which is the same behavior patient demonstrated in the past, just prior to cutting his neck, in a near lethal suicide attempt. Patient has history of auditory hallucinations commanding him to self-harm. Patient has no insight, is internally preoccupied disorganized in both speech and behavior and is in imminent risk for harm to self. Will petition the court for involuntary commitment and substituted judgment. -will restart clozapine which to proposal manager writer's knowledge is the only medications that has been effective 03/01 remains floridly psychotic, disorganized but did take medications 03/02 patient more able to have a conversation and is goal oriented, however difficult to engage; has no insight at all into psychiatric illness. He said he will take medications so that he can get out of here. Disorganized behaviors, internally preoccupied, talking to himself, spitting on the floor and the wall. At this time, proposal manager writer does not think patient will continue taking medications on discharge and that he needs more time to stabilize in order to remain safe in the community. 03/03 Remains disorganized and difficult To engage. Will switch clozapine to oral disintegrating tablets to help better ensure compliance as patient has history of cheeking medications. 03/04 patient more friendly today and willing to have brief, polite discussion; wants medications increased so that he can discharges soon as possible. Remains with disorganized behaviors and engaged in internal dialogue with himself, however he stops this on approach and is able to more or less, appropriately interact with staff. 03/06 Patient mostly keeps to himself During which time he will self dialogue and is clearly internally preoccupied; however when he needs some thin or interacts with staff, he is able to be outward focused and goal oriented Plan: Q15 min safety checks [facility] for involuntary commitment and substituted judgment for patient's safety Increased to Clozapine 225mg qhs (last time discharged on clozapine 275 q.h.s.) ANC weekly (ANC 3.0 on 03/01/22) clonazepam 0.5mg bID (helped in past); will switch to afternoon and evening since sleeps in much of morning. Discontinue olanzapine for now (of only partial, limited effective; patient refusing) Discontinue Seroquel; patient refusing and overall to sedating to be effective Discontinue Abilify (not effective, patient refusing) Monitor response to medications. Monitor for safety in the milieu. Discharge on stabilization. Patient seen. Chart reviewed. Discussed with team. Obtain collateral contact info as needed I spent minutes with the patient and/or on the patient floor today, greater than?50% of which was spent counseling/coordinating care. Patient educated on: medication risk/benefits Informed Consent: understands and further education needed Reason for contiued inpatient stay Substantial Risk for: rapid decompensation
[2022-03-07 18:00] VITALS: RESP 16
[2022-03-07] MEDS: clonazePAM 0.5 MG TABLET PO (18:24)
[2022-03-07] MEDS: cloZAPine ODT 25 MG TAB.RAPDIS 225 MG PO (18:24)
[2022-03-08] MEDS: Nicotine Polacrilex 2 MG GUM 4 MG BUCCAL ×8 (07:00→21:38)
[2022-03-08 10:33] LABS: Neut%MD 71.3 %; Neutrophils Absolute Auto 4.7 x10*3/uL (2.0-8.3); WBCANC 6.5 X10*3/uL
[2022-03-08 13:17] VITALS: RESP 16
--- NOTE | 2022-03-08 17:33 | HO.PSYCHPN ---
Subjective Subjective Date of Service: 03/08/22 Reason For Visit: Psychosis Interim History: mostly the same. Says to radio news writer i've been doing good, havent I? to which radio news writer agrees. Discussed family meeting tomorrow to which patient said excellent... he denies any problems and has no complaints Mental Status Exam Mental Status Exam Narrative: Pt is alert and oriented; behavior is mostly organized when needs to be; patient is not in distress; dressed in casual attire with close shaved head; mood is good and affect more relaxed; adequate; eye contact; Speech is normal volume; no psychomotor agitation present; thought process is goal oriented; Thought content is on discharge; also on undisclosed internally preoccupied thoughts; denies SI/HI. Denies AH but pt self-dialoguing, laughing to himself, answering questions throughout the day and appears internally preoccupied; Patients insight and judgment impaired but seem improved. Diagnostics Vital Signs (24Hr): Vital Signs - 24 hr 03/07/22 18:00 03/08/22 13:17 Respiratory Rate 16 16 BMI result Body Mass Index 21.1 Labs Results: 02/22/22 14:38 02/22/22 14:38 Labs: Laboratory Results - last 48 hr 03/08/22 10:19 Absolute Neuts (auto) 4.7 Medications Medications Current Medications Acetaminophen (Acetaminophen 325 Mg Tablet) 650 mg PO Q6H PRN PRN Reason: Headache/Pain Mild Scale (1-3) Al Hydroxide/Mg Hydroxide (Magnesium Hydrox/Alum Hydrox 30 Ml Oral.Susp) 30 ml PO Q6H PRN PRN Reason: Heartburn/Nausea Clonazepam (Clonazepam 0.5 Mg Tablet) 0.5 mg PO DAILY PRN PRN Reason: anxiety Last Admin: 03/05/22 18:39 Dose: 0.5 mg Clonazepam (Clonazepam 0.5 Mg Tablet) 0.5 mg PO BEDTIME EUGENIA Last Admin: 03/07/22 18:24 Dose: 0.5 mg Clozapine (Clozapine Odt 25 Mg Tab.Rapdis) 250 mg PO BEDTIME EUGENIA Magnesium Hydroxide (Milk Of Magnesia 30 Ml Oral.Susp) 30 ml PO DAILY PRN PRN Reason: Constipation Nicotine Polacrilex (Nicotine Polacrilex 2 Mg Gum) 4 mg BUCCAL Q1H PRN PRN Reason: Nicotine Cravings Last Admin: 03/08/22 16:50 Dose: 4 mg Olanzapine (Olanzapine Odt 10 Mg Tab.Rapdis) 10 mg TRANSLINGU TID PRN PRN Reason: agitation Quetiapine Fumarate (Quetiapine Fumarate 50 Mg Tablet) 50 mg PO Q4H PRN PRN Reason: psychosis, agitation, anxiety Trazodone HCl (Trazodone Hcl 50 Mg Tablet) 50 mg PO BEDTIME PRN PRN Reason: Insomnia Allergies Allergies Allergy/AdvReac Type Severity Reaction Status Date / Time diphenhydramine Allergy Unknown unknown Verified 10/12/20 04:33 [From BENADRYL] haloperidol [From HALDOL] Allergy Unknown unknown Verified 10/12/20 04:33 paliperidone AdvReac Severe dystonia Verified 03/30/21 23:47 Assessment & Plan Assessment & Plan (1) Schizoaffective disorder, bipolar type: Status: Acute Code(s): F25.0 - Schizoaffective disorder, bipolar type Plan Jose is a 26 y.o. male with a history of schizoaffective disorder, bipolar type. Pt has hx of multiple previous inpatient admissions for psychotic sx i.e. religiosity, command AH, internal preoccupation, paranoid ideations, and agitation. Pt presented to [facility] ED on 02/22/22 after pt's mother called EMS because of non-adherence to medications. Per pharmacy records, pt last filled clozapine in 08/2021, however was non-adherent and OP provider Bennett Light switched him to abilify 10 mg daily on 01/26/2022. Pt has decompensated, psychotic and disorganized. -reportedly, patient was doing relatively well in the community until it became very difficult for visiting nurse to find patient to administer clozapine. 02/28 Patient disorganized in speech and behavior; no insight with significant thought blocking; internally preoccupied Mother reports patient has been wandering aimlessly, confused and disorganized in the streets, night eating, not recognizing family and has been overheard daily saying no briana, don't do it...you're a good gurjit... Which is the same behavior patient demonstrated in the past, just prior to cutting his neck, in a near lethal suicide attempt. Patient has history of auditory hallucinations commanding him to self-harm. Patient has no insight, is internally preoccupied disorganized in both speech and behavior and is in imminent risk for harm to self. Will petition the court for involuntary commitment and substituted judgment. -will restart clozapine which to radio news writer's knowledge is the only medications that has been effective 03/01 remains floridly psychotic, disorganized but did take medications 03/02 patient more able to have a conversation and is goal oriented, however difficult to engage; has no insight at all into psychiatric illness. He said he will take medications so that he can get out of here. Disorganized behaviors, internally preoccupied, talking to himself, spitting on the floor and the wall. At this time, radio news writer does not think patient will continue taking medications on discharge and that he needs more time to stabilize in order to remain safe in the community. 03/03 Remains disorganized and difficult To engage. Will switch clozapine to oral disintegrating tablets to help better ensure compliance as patient has history of cheeking medications. 03/04 patient more friendly today and willing to have brief, polite discussion; wants medications increased so that he can discharges soon as possible. Remains with disorganized behaviors and engaged in internal dialogue with himself, however he stops this on approach and is able to more or less, appropriately interact with staff. 03/06 Patient mostly keeps to himself During which time he will self dialogue and is clearly internally preoccupied; however when he needs some thin or interacts with staff, he is able to be outward focused and goal oriented 03/08 continues to stabilize Plan: Q15 min safety checks CV (retracted 3 day) Increased to Clozapine 250mg qhs (last time discharged on clozapine 275 q.h.s.) ANC weekly (ANC 4.7 on 03/08/22) clonazepam 0.5mg bID (helped in past); will switch to afternoon and evening since sleeps in much of morning. Discontinue olanzapine for now (of only partial, limited effective; patient refusing) Discontinue Seroquel; patient refusing and overall to sedating to be effective Discontinue Abilify (not effective, patient refusing) Monitor response to medications. Monitor for safety in the milieu. Discharge on stabilization. Patient seen. Chart reviewed. Discussed with team. Obtain collateral contact info as needed I spent minutes with the patient and/or on the patient floor today, greater than?50% of which was spent counseling/coordinating care. Patient educated on: medication risk/benefits and therapeutic strategies Informed Consent: understands and further education needed Reason for contiued inpatient stay Substantial Risk for: rapid decompensation
[2022-03-08 20:08] VITALS: BP 136/88; PULSE 121; TEMP 36.8; O2SAT 97
[2022-03-08] MEDS: cloZAPine ODT 25 MG TAB.RAPDIS 250 MG PO (21:38)
[2022-03-08] MEDS: clonazePAM 0.5 MG TABLET PO (21:38)
[2022-03-09 08:51] VITALS: RESP 18
[2022-03-09] MEDS: Nicotine Polacrilex 2 MG GUM 4 MG BUCCAL ×6 (09:32→19:16)
[2022-03-09 16:15] VITALS: RESP 16
--- NOTE | 2022-03-09 17:07 | P.PNPSI_ITS ---
Subjective Subjective Date of Service: 03/09/22 Reason For Visit: Psychosis Interim History: Patient remains Internally preoccupied and having extensive conversations with himself; however is able to abstain from this while Directlyinteracting with staff; if there is any pause in the conversation however he turns back to self dialogue Meeting with patient, his mom via Skype, social services director and [facility] out reach mails supervisor rahel esteves. Patient says he is doing well and agrees to continue taking his medications upon discharge. He agrees to make himself available to [facility] staff who will administer medication once a day. He also agrees to continued once a week blood checks. Patient's mom agrees that patient Is nearly back to his baseline; she also agrees that patient continues to lack insight but that This is not likely to change any time soon and that his agreement to continue with medications is enough. Patient agrees to stay for continued titration of clozapine which is getting close to his home dose. Will continue to set up out reach services starting next week for discharge Mental Status Exam Mental Status Exam Narrative: Pt is alert and oriented; behavior is mostly organized when needs to be; patient is not in distress; dressed in casual attire with close shaved head; mood is good and affect more relaxed; adequate; eye contact; Speech is normal volume; no psychomotor agitation present; thought process is goal oriented; Thought content is on discharge; also on undisclosed internally preoccupied thoughts; denies SI/HI. Denies AH but pt self-dialoguing, laughing to himself, answering questions throughout the day and appears internally preoccupied; Patients insight and judgment impaired but improved and close to baseline. Diagnostics Vital Signs (24Hr): Vital Signs - 24 hr 03/08/22 20:08 03/09/22 08:51 03/09/22 16:15 Temperature 98.2 F Pulse Rate 121 H Respiratory Rate 18 16 Blood Pressure 136/88 Pulse Oximetry 97 Oxygen Delivery Method Room Air BMI result Body Mass Index 21.1 Labs Results: 02/22/22 14:38 02/22/22 14:38 Labs: Laboratory Results - last 48 hr 03/08/22 10:19 Absolute Neuts (auto) 4.7 Medications Medications Current Medications Acetaminophen (Acetaminophen 325 Mg Tablet) 650 mg PO Q6H PRN PRN Reason: Headache/Pain Mild Scale (1-3) Al Hydroxide/Mg Hydroxide (Magnesium Hydrox/Alum Hydrox 30 Ml Oral.Susp) 30 ml PO Q6H PRN PRN Reason: Heartburn/Nausea Clonazepam (Clonazepam 0.5 Mg Tablet) 0.5 mg PO DAILY PRN PRN Reason: anxiety Last Admin: 03/05/22 18:39 Dose: 0.5 mg Clonazepam (Clonazepam 0.5 Mg Tablet) 0.5 mg PO BEDTIME PRN PRN Reason: anxiety/insomnia Clozapine (Clozapine Odt 25 Mg Tab.Rapdis) 275 mg PO BEDTIME EUGENIA Magnesium Hydroxide (Milk Of Magnesia 30 Ml Oral.Susp) 30 ml PO DAILY PRN PRN Reason: Constipation Nicotine Polacrilex (Nicotine Polacrilex 2 Mg Gum) 4 mg BUCCAL Q1H PRN PRN Reason: Nicotine Cravings Last Admin: 03/09/22 16:25 Dose: 2 mg Olanzapine (Olanzapine Odt 10 Mg Tab.Rapdis) 10 mg TRANSLINGU TID PRN PRN Reason: agitation Quetiapine Fumarate (Quetiapine Fumarate 50 Mg Tablet) 50 mg PO Q4H PRN PRN Reason: psychosis, agitation, anxiety Trazodone HCl (Trazodone Hcl 50 Mg Tablet) 50 mg PO BEDTIME PRN PRN Reason: Insomnia Allergies Allergies Allergy/AdvReac Type Severity Reaction Status Date / Time diphenhydramine Allergy Unknown unknown Verified 10/12/20 04:33 [From BENADRYL] haloperidol [From HALDOL] Allergy Unknown unknown Verified 10/12/20 04:33 paliperidone AdvReac Severe dystonia Verified 03/30/21 23:47 Assessment & Plan Assessment & Plan (1) Schizoaffective disorder, bipolar type: Status: Acute Code(s): F25.0 - Schizoaffective disorder, bipolar type Plan Jose is a 26 y.o. male with a history of schizoaffective disorder, bipolar type. Pt has hx of multiple previous inpatient admissions for psychotic sx i.e. religiosity, command AH, internal preoccupation, paranoid ideations, and agitation. Pt presented to [facility] on 02/22/22 after pt's mother called EMS because of non-adherence to medications. Per pharmacy records, pt last filled clozapine in 08/2021, however was non-adherent and OP provider Bennett Light switched him to abilify 10 mg daily on 01/26/2022. Pt has decompensated, psychotic and disorganized. -reportedly, patient was doing relatively well in the community until it became very difficult for visiting nurse to find patient to administer clozapine. 02/28 Patient disorganized in speech and behavior; no insight with significant thought blocking; internally preoccupied Mother reports patient has been wandering aimlessly, confused and disorganized in the streets, night eating, not recognizing family and has been overheard daily saying no briana, don't do it...you're a good gurjit... Which is the same behavior patient demonstrated in the past, just prior to cutting his neck, in a near lethal suicide attempt. Patient has history of auditory hallucinations commanding him to self-harm. Patient has no insight, is internally preoccupied disorganized in both speech and behavior and is in imminent risk for harm to self. Will petition the court for involuntary commitment and substituted judgment. -will restart clozapine which to advertising writer's knowledge is the only medications that has been effective 03/01 remains floridly psychotic, disorganized but did take medications 03/02 patient more able to have a conversation and is goal oriented, however difficult to engage; has no insight at all into psychiatric illness. He said he will take medications so that he can get out of here. Disorganized behaviors, internally preoccupied, talking to himself, spitting on the floor and the wall. At this time, advertising writer does not think patient will continue taking medications on discharge and that he needs more time to stabilize in order to remain safe in the community. 03/03 Remains disorganized and difficult To engage. Will switch clozapine to oral disintegrating tablets to help better ensure compliance as patient has history of cheeking medications. 03/04 patient more friendly today and willing to have brief, polite discussion; wants medications increased so that he can discharges soon as possible. Remains with disorganized behaviors and engaged in internal dialogue with himself, however he stops this on approach and is able to more or less, appropriately interact with staff. 03/06 Patient mostly keeps to himself During which time he will self dialogue and is clearly internally preoccupied; however when he needs some thin or interacts with staff, he is able to be outward focused and goal oriented 03/08 continues to stabilize 03/10 Closing in on baseline; meeting with mom and CHD went well and patient agrees to continue to take medications and meet with administering staff post discharge; also agrees to weekly lab work. Mom feels that patient is getting close to his baseline and accepts that insight is not likely achievable at this time Plan: Q15 min safety checks CV (retracted 3 day) Increased to Clozapine 275mg qhs (last time discharged on clozapine 275 q.h.s.) ANC weekly (ANC 4.7 on 03/08/22) clonazepam 0.5mg bID (helped in past); will switch to afternoon and evening since sleeps in much of morning. Discontinue olanzapine for now (of only partial, limited effective; patient refusing) Discontinue Seroquel; patient refusing and overall to sedating to be effective Discontinue Abilify (not effective, patient refusing) Monitor response to medications. Monitor for safety in the milieu. Discharge on stabilization. Patient seen. Chart reviewed. Discussed with team. Obtain collateral contact info as needed I spent minutes with the patient and/or on the patient floor today, greater than?50% of which was spent counseling/coordinating care. Patient educated on: medication risk/benefits Informed Consent: understands and further education needed Reason for contiued inpatient stay Substantial Risk for: med/psych decompensation
[2022-03-09] MEDS: clonazePAM 0.5 MG TABLET PO (19:16)
[2022-03-09] MEDS: cloZAPine ODT 25 MG TAB.RAPDIS 275 MG PO (19:16)
[2022-03-10] MEDS: Nicotine Polacrilex 2 MG GUM 4 MG BUCCAL ×4 (11:11→20:30)
[2022-03-10 15:58] VITALS: RESP 16
--- NOTE | 2022-03-10 17:49 | HO.PSYCHPN ---
Subjective Subjective Date of Service: 03/10/22 Reason For Visit: Psychosis Interim History: Patient says he has Great. He continues to have relatively appropriate interactions with peers and staff. He remains floridly internally preoccupied when not around staff or even during pauses in the conversation; has no insight about this however. Patient tolerating medications well. No complaints and no requests. Mental Status Exam Mental Status Exam Narrative: Pt is alert and oriented; behavior is mostly organized when needs to be; patient is not in distress; dressed in casual attire with close shaved head; mood is good and affect more relaxed; adequate; eye contact; Speech is normal volume; no psychomotor agitation present; thought process is goal oriented; Thought content is on discharge; also on undisclosed internally preoccupied thoughts; denies SI/HI. Denies AH but pt self-dialoguing, laughing to himself, answering questions throughout the day and appears internally preoccupied; Patients insight and judgment impaired but improved and close to baseline. Diagnostics Vital Signs (24Hr): Vital Signs - 24 hr 03/10/22 15:58 Respiratory Rate 16 BMI result Body Mass Index 21.1 Labs Results: 02/22/22 14:38 02/22/22 14:38 Medications Medications Current Medications Acetaminophen (Acetaminophen 325 Mg Tablet) 650 mg PO Q6H PRN PRN Reason: Headache/Pain Mild Scale (1-3) Al Hydroxide/Mg Hydroxide (Magnesium Hydrox/Alum Hydrox 30 Ml Oral.Susp) 30 ml PO Q6H PRN PRN Reason: Heartburn/Nausea Clonazepam (Clonazepam 0.5 Mg Tablet) 0.5 mg PO BEDTIME PRN PRN Reason: anxiety/insomnia Last Admin: 03/09/22 19:16 Dose: 0.5 mg Clozapine (Clozapine Odt 25 Mg Tab.Rapdis) 275 mg PO BEDTIME EUGENIA Stop: 03/10/22 21:00 Last Admin: 03/09/22 19:16 Dose: 275 mg Clozapine (Clozapine Odt 25 Mg Tab.Rapdis) 300 mg PO BEDTIME EUGENIA Magnesium Hydroxide (Milk Of Magnesia 30 Ml Oral.Susp) 30 ml PO DAILY PRN PRN Reason: Constipation Nicotine Polacrilex (Nicotine Polacrilex 2 Mg Gum) 4 mg BUCCAL Q1H PRN PRN Reason: Nicotine Cravings Last Admin: 03/10/22 16:51 Dose: 4 mg Olanzapine (Olanzapine Odt 10 Mg Tab.Rapdis) 10 mg TRANSLINGU TID PRN PRN Reason: agitation Quetiapine Fumarate (Quetiapine Fumarate 50 Mg Tablet) 50 mg PO Q4H PRN PRN Reason: psychosis, agitation, anxiety Trazodone HCl (Trazodone Hcl 50 Mg Tablet) 50 mg PO BEDTIME PRN PRN Reason: Insomnia Allergies Allergies Allergy/AdvReac Type Severity Reaction Status Date / Time diphenhydramine Allergy Unknown unknown Verified 10/12/20 04:33 [From BENADRYL] haloperidol [From HALDOL] Allergy Unknown unknown Verified 10/12/20 04:33 paliperidone AdvReac Severe dystonia Verified 03/30/21 23:47 Assessment & Plan Assessment & Plan (1) Schizoaffective disorder, bipolar type: Status: Acute Code(s): F25.0 - Schizoaffective disorder, bipolar type Plan Jose is a 26 y.o. male with a history of schizoaffective disorder, bipolar type. Pt has hx of multiple previous inpatient admissions for psychotic sx i.e. religiosity, command AH, internal preoccupation, paranoid ideations, and agitation. Pt [place] [facility] [place]22 after pt's mother called EMS because of non-adherence to medications. Per pharmacy records, pt last filled clozapine in 08/2021, however was non-adherent and OP provider Bennett Light switched him to abilify 10 mg daily on 01/26/2022. Pt has decompensated, psychotic and disorganized. -reportedly, patient was doing relatively well in the community until it became very difficult for visiting nurse to find patient to administer clozapine. 02/28 Patient disorganized in speech and behavior; no insight with significant thought blocking; internally preoccupied Mother reports patient has been wandering aimlessly, confused and disorganized in the streets, night eating, not recognizing family and has been overheard daily saying no briana, don't do it...you're a good gurjit... Which is the same behavior patient demonstrated in the past, just prior to cutting his neck, in a near lethal suicide attempt. Patient has history of auditory hallucinations commanding him to self-harm. Patient has no insight, is internally preoccupied disorganized in both speech and behavior and is in imminent risk for harm to self. Will petition the court for involuntary commitment and substituted judgment. -will restart clozapine which to travel writer's knowledge is the only medications that has been effective 03/01 remains floridly psychotic, disorganized but did take medications 03/02 patient more able to have a conversation and is goal oriented, however difficult to engage; has no insight at all into psychiatric illness. He said he will take medications so that he can get out of here. Disorganized behaviors, internally preoccupied, talking to himself, spitting on the floor and the wall. At this time, travel writer does not think patient will continue taking medications on discharge and that he needs more time to stabilize in order to remain safe in the community. 03/03 Remains disorganized and difficult To engage. Will switch clozapine to oral disintegrating tablets to help better ensure compliance as patient has history of cheeking medications. 03/04 patient more friendly today and willing to have brief, polite discussion; wants medications increased so that he can discharges soon as possible. Remains with disorganized behaviors and engaged in internal dialogue with himself, however he stops this on approach and is able to more or less, appropriately interact with staff. 03/06 Patient mostly keeps to himself During which time he will self dialogue and is clearly internally preoccupied; however when he needs some thin or interacts with staff, he is able to be outward focused and goal oriented 03/08 continues to stabilize 03/09 Closing in on baseline; meeting with mom and CHD went well and patient agrees to continue to take medications and meet with administering staff post discharge; also agrees to weekly lab work. Mom feels that patient is getting close to his baseline and accepts that insight is not likely achievable at this time 03/10 Continue to stabilize; planning for discharge early next week, Sunday, giving time for CHD to set up post discharge services so that patient will have no lapse in treatment. Plan: Q15 min safety checks CV (retracted 3 day) Will leave at 275 for now but increase to Clozapine 300mg qhs (last time discharged on clozapine 275 q.h.s.); will see if slightly increased dose can help improve patient's insight and therefore adherence ANC weekly (ANC 4.7 on 03/08/22) clonazepam 0.5mg bID (helped in past); will switch to afternoon and evening since sleeps in much of morning. Discontinue olanzapine for now (of only partial, limited effective; patient refusing) Discontinue Seroquel; patient refusing and overall to sedating to be effective Discontinue Abilify (not effective, patient refusing) Monitor response to medications. Monitor for safety in the milieu. Discharge on stabilization. Patient seen. Chart reviewed. Discussed with team. Obtain collateral contact info as needed I spent minutes with the patient and/or on the patient floor today, greater than?50% of which was spent counseling/coordinating care. Reason for contiued inpatient stay Substantial Risk for: med/psych decompensation
[2022-03-10] MEDS: cloZAPine ODT 25 MG TAB.RAPDIS 275 MG PO (18:46)
[2022-03-11 06:00] VITALS: BP 120/71; PULSE 98; RESP 16; TEMP 36.9; O2SAT 99
[2022-03-11] MEDS: Nicotine Polacrilex 2 MG GUM 4 MG BUCCAL ×4 (09:41→17:55)
[2022-03-11 16:36] VITALS: BP 134/87; PULSE 90; RESP 16; TEMP 36.6; O2SAT 97
[2022-03-11] MEDS: cloZAPine ODT 25 MG TAB.RAPDIS 300 MG PO (18:44)
--- NOTE | 2022-03-11 21:14 | P.PNPSI_ITS ---
Subjective Subjective Date of Service: 03/11/22 Reason For Visit: Psychosis Interim History: Good mood, friendly on approach, more social in the milieu even playing chess with peer. When not directly engaged in conversation patient is vigorously involved in an internal dialogue. However he is able to stop and engage as needed. Overall relatively good Behavioral and impulse control Patient however did not like his new roommate and asked if he could sleep in group room which he did. Mental Status Exam Mental Status Exam Narrative: Pt is alert and oriented; behavior is mostly organized when needs to be; patient is not in distress; dressed in casual attire with close shaved head; mood is good and affect more relaxed; adequate; eye contact; Speech is normal volume; no psychomotor agitation present; thought process is goal oriented; Thought content is on discharge; also on undisclosed internally preoccupied thoughts; denies SI/HI. Denies AH but pt self-dialoguing, laughing to himself, answering questions throughout the day and appears internally preoccupied; Patients insight and judgment impaired but improved and at baseline. Diagnostics Vital Signs (24Hr): Vital Signs - 24 hr 03/11/22 06:00 03/11/22 16:36 Temperature 98.4 F 97.9 F Pulse Rate 98 90 Respiratory Rate 16 16 Blood Pressure 120/71 134/87 Pulse Oximetry 99 97 Oxygen Delivery Method Room Air Room Air BMI result Body Mass Index 21.1 Labs Results: 02/22/22 14:38 02/22/22 14:38 Medications Medications Current Medications Acetaminophen (Acetaminophen 325 Mg Tablet) 650 mg PO Q6H PRN PRN Reason: Headache/Pain Mild Scale (1-3) Al Hydroxide/Mg Hydroxide (Magnesium Hydrox/Alum Hydrox 30 Ml Oral.Susp) 30 ml PO Q6H PRN PRN Reason: Heartburn/Nausea Clonazepam (Clonazepam 0.5 Mg Tablet) 0.5 mg PO BEDTIME PRN PRN Reason: anxiety/insomnia Last Admin: 03/09/22 19:16 Dose: 0.5 mg Clozapine (Clozapine Odt 25 Mg Tab.Rapdis) 300 mg PO BEDTIME EUGENIA Last Admin: 03/11/22 18:44 Dose: 300 mg Magnesium Hydroxide (Milk Of Magnesia 30 Ml Oral.Susp) 30 ml PO DAILY PRN PRN Reason: Constipation Nicotine Polacrilex (Nicotine Polacrilex 2 Mg Gum) 4 mg BUCCAL Q1H PRN PRN Reason: Nicotine Cravings Last Admin: 03/11/22 17:55 Dose: 4 mg Olanzapine (Olanzapine Odt 10 Mg Tab.Rapdis) 10 mg TRANSLINGU TID PRN PRN Reason: agitation Quetiapine Fumarate (Quetiapine Fumarate 50 Mg Tablet) 50 mg PO Q4H PRN PRN Reason: psychosis, agitation, anxiety Trazodone HCl (Trazodone Hcl 50 Mg Tablet) 50 mg PO BEDTIME PRN PRN Reason: Insomnia Allergies Allergies Allergy/AdvReac Type Severity Reaction Status Date / Time diphenhydramine Allergy Unknown unknown Verified 10/12/20 04:33 [From BENADRYL] haloperidol [From HALDOL] Allergy Unknown unknown Verified 10/12/20 04:33 paliperidone AdvReac Severe dystonia Verified 03/30/21 23:47 Assessment & Plan Assessment & Plan (1) Schizoaffective disorder, bipolar type: Status: Acute Code(s): F25.0 - Schizoaffective disorder, bipolar type Plan Jose is a 26 y.o. male with a history of schizoaffective disorder, bipolar type. Pt has hx of multiple previous inpatient admissions for psychotic sx i.e. religiosity, command AH, internal preoccupation, paranoid ideations, and agitation. Pt [place] [facility] [place]22 after pt's mother called EMS because of non-adherence to medications. Per pharmacy records, pt last filled clozapine in 08/2021, however was non-adherent and OP provider Bennett Light switched him to abilify 10 mg daily on 01/26/2022. Pt has decompensated, psychotic and disorganized. -reportedly, patient was doing relatively well in the community until it became very difficult for visiting nurse to find patient to administer clozapine. 02/28 Patient disorganized in speech and behavior; no insight with significant thought blocking; internally preoccupied Mother reports patient has been wandering aimlessly, confused and disorganized in the streets, night eating, not recognizing family and has been overheard daily saying no briana, don't do it...you're a good gurjit... Which is the same behavior patient demonstrated in the past, just prior to cutting his neck, in a near lethal suicide attempt. Patient has history of auditory hallucinations commanding him to self-harm. Patient has no insight, is internally preoccupied disorganized in both speech and behavior and is in imminent risk for harm to s elf. Will petition the court for involuntary commitment and substituted judgment. -will restart clozapine which to fiction and nonfiction writer prose's knowledge is the only medications that has been effective 03/01 remains floridly psychotic, disorganized but did take medications 03/02 patient more able to have a conversation and is goal oriented, however difficult to engage; has no insight at all into psychiatric illness. He said he will take medications so that he can get out of here. Disorganized behaviors, internally preoccupied, talking to himself, spitting on the floor and the wall. At this time, fiction and nonfiction writer prose does not think patient will continue taking medications on discharge and that he needs more time to stabilize in order to remain safe in the community. 03/03 Remains disorganized and difficult To engage. Will switch clozapine to oral disintegrating tablets to help better ensure compliance as patient has his tory of cheeking medications. 03/04 patient more friendly today and willing to have brief, polite discussion; wants medications increased so that he can discharges soon as possible. Remains with disorganized behaviors and engaged in internal dialogue with himself, however he stops this on approach and is able to more or less, appropriately interact with staff. 03/06 Patient mostly keeps to himself During which time he will self dialogue and is clearly internally preoccupied; however when he needs some thin or interacts with staff, he is able to be outward focused and goal oriented 03/08 continues to stabilize 03/09 Closing in on baseline; meeting with mom and CHD went well and patient agrees to continue to take medications and meet with administering staff post discharge; also agrees to weekly lab work. Mom feels that patient is getting close to his baseline and accepts that insight is not likely achievable at this time 03/10 Continue to stabilize; planning for discharge early next week, Sunday, giving time for [facility]D to set up post discharge services so that patient will have no lapse in treatment. 03/11 Patient stabilizing well Plan: Q15 min safety checks CV (retracted 3 day) Increase to Clozapine 300mg qhs (last time discharged on clozapine 275 q.h.s.); will see if slightly increased dose can help improve patient's insight and therefore adherence ANC weekly (ANC 4.7 on 03/08/22) clonazepam 0.5mg bID (helped in past); will switch to afternoon and evening since sleeps in much of morning. Discontinue olanzapine for now (of only partial, limited effective; patient refusing) Discontinue Seroquel; patient refusing and overall to sedating to be effective Discontinue Abilify (not effective, patient refusing) Monitor response to medications. Monitor for safety in the milieu. Discharge on stabilization. Patient seen. Chart reviewed. Discussed with team. Obtain collateral contact info as needed I spent minutes with the patient and/or on the patient floor today, greater than?50% of which was spent counseling/coordinating care. Reason for contiued inpatient stay Substantial Risk for: stable for discharge
[2022-03-12 06:00] VITALS: BP 121/74; PULSE 99; RESP 16; TEMP 36.5; O2SAT 100
[2022-03-12] MEDS: Nicotine Polacrilex 2 MG GUM 4 MG BUCCAL ×7 (09:47→22:17)
--- NOTE | 2022-03-12 16:21 | P.PNPSI_ITS ---
Subjective Subjective Date of Service: 03/12/22 Reason For Visit: Psychosis Interim History: Patient says he has good And has no complaints or requests. Still sleeping in group room but is fine with this. Behaviors remain in Good control; remains internally preoccupied would not directly interacted with others. Excited to hear discharge plans are being made for this coming Sunday Mental Status Exam Mental Status Exam Narrative: Pt is alert and oriented; behavior is mostly organized when needs to be; patient is not in distress; dressed in casual attire with close shaved head; mood is good and affect more relaxed; adequate; eye contact; Speech is normal volume; no psychomotor agitation present; thought process is goal oriented; Thought content is on discharge; also on undisclosed internally preoccupied thoughts; denies SI/HI. Denies AH but pt self-dialoguing, laughing to himself, answering questions throughout the day and appears internally preoccupied; Patients insight and judgment impaired but improved and at baseline. Diagnostics Vital Signs (24Hr): Vital Signs - 24 hr 03/11/22 16:36 03/12/22 06:00 Temperature 97.9 F 97.7 F Pulse Rate 90 99 Respiratory Rate 16 16 Blood Pressure 134/87 121/74 Pulse Oximetry 97 100 Oxygen Delivery Method Room Air Room Air BMI result Body Mass Index 21.1 Labs Results: 02/22/22 14:38 02/22/22 14:38 Medications Medications Current Medications Acetaminophen (Acetaminophen 325 Mg Tablet) 650 mg PO Q6H PRN PRN Reason: Headache/Pain Mild Scale (1-3) Al Hydroxide/Mg Hydroxide (Magnesium Hydrox/Alum Hydrox 30 Ml Oral.Susp) 30 ml PO Q6H PRN PRN Reason: Heartburn/Nausea Clonazepam (Clonazepam 0.5 Mg Tablet) 0.5 mg PO BEDTIME PRN PRN Reason: anxiety/insomnia Last Admin: 03/09/22 19:16 Dose: 0.5 mg Clozapine (Clozapine Odt 25 Mg Tab.Rapdis) 300 mg PO BEDTIME EUGENIA Last Admin: 03/11/22 18:44 Dose: 300 mg Magnesium Hydroxide (Milk Of Magnesia 30 Ml Oral.Susp) 30 ml PO DAILY PRN PRN Reason: Constipation Nicotine Polacrilex (Nicotine Polacrilex 2 Mg Gum) 4 mg BUCCAL Q1H PRN PRN Reason: Nicotine Cravings Last Admin: 03/12/22 14:15 Dose: 4 mg Olanzapine (Olanzapine Odt 10 Mg Tab.Rapdis) 10 mg TRANSLINGU TID PRN PRN Reason: agitation Quetiapine Fumarate (Quetiapine Fumarate 50 Mg Tablet) 50 mg PO Q4H PRN PRN Reason: psychosis, agitation, anxiety Trazodone HCl (Trazodone Hcl 50 Mg Tablet) 50 mg PO BEDTIME PRN PRN Reason: Insomnia Allergies Allergies Allergy/AdvReac Type Severity Reaction Status Date / Time diphenhydramine Allergy Unknown unknown Verified 10/12/20 04:33 [From BENADRYL] haloperidol [From HALDOL] Allergy Unknown unknown Verified 10/12/20 04:33 paliperidone AdvReac Severe dystonia Verified 03/30/21 23:47 Assessment & Plan Assessment & Plan (1) Schizoaffective disorder, bipolar type: Status: Acute Code(s): F25.0 - Schizoaffective disorder, bipolar type Plan Jose is a 26 y.o. male with a history of schizoaffective disorder, bipolar type. Pt has hx of multiple previous inpatient admissions for psychotic sx i.e. religiosity, command AH, internal preoccupation, paranoid ideations, and agitation. Pt [place] [facility] [place] after pt's mother called EMS because of non-adherence to medications. Per pharmacy records, pt last filled clozapine in 08/2021, however was non-adherent and OP provider Bennett Light switched him to abilify 10 mg daily on 01/26/2022. Pt has decompensated, psychotic and disorganized. -reportedly, patient was doing relatively well in the community until it became very difficult for visiting nurse to find patient to administer clozapine. 02/28 Patient disorganized in speech and behavior; no insight with significant thought blocking; internally preoccupied Mother reports patient has been wandering aimlessly, confused and disorganized in the streets, night eating, not recognizing family and has been overheard daily saying no briana, don't do it...you're a good gurjit... Which is the same behavior patient demonstrated in the past, just prior to cutting his neck, in a near lethal suicide attempt. Patient has history of auditory hallucinations commanding him to self-harm. Patient has no insight, is internally preoccupied disorganized in both speech and behavior and is in imminent risk for harm to self. Will petition the court for involuntary commitment and substituted judgment. -will restart clozapine which to underwriter solicitation director's knowledge is the only medications that has been effective 03/01 remains floridly psychotic, disorganized but did take medications 03/02 patient more able to have a conversation and is goal oriented, however difficult to engage; has no insight at all into psychiatric illness. He said he will take medications so that he can get out of here. Disorganized behaviors, internally preoccupied, talking to himself, spitting on the floor and the wall. At this time, underwriter solicitation director does not think patient will continue taking medications on discharge and that he needs more time to stabilize in order to remain safe in the community. 03/03 Remains disorganized and difficult To engage. Will switch clozapine to oral disintegrating tablets to help better ensure compliance as patient has h istory of cheeking medications. 03/04 patient more friendly today and willing to have brief, polite discussion; wants medications increased so that he can discharges soon as possible. Remains with disorganized behaviors and engaged in internal dialogue with himself, however he stops this on approach and is able to more or less, appropriately interact with staff. 03/06 Patient mostly keeps to himself During which time he will self dialogue and is clearly internally preoccupied; however when he needs some thin or interacts with staff, he is able to be outward focused and goal oriented 03/08 continues to stabilize 03/09 Closing in on baseline; meeting with mom and CHD went well and patient agrees to continue to take medications and meet with administering staff post discharge; also agrees to weekly lab work. Mom feels that patient is getting close to his baseline and accepts that insight is not likely achievable at this time 03/10 Continue to stabilize; planning for discharge early next week, Sunday, giving time for [facility]D to set up post discharge services so that patient will have no lapse in treatment. 03/11 Patient stabilizing well 03/12 patient remains at what is likely his baseline which is friendly, mostly polite, joking around sometimes; no insight but med compliant; internally preo ccupied and vigorously self dialoguing when not engaging with others however he can stop this and interact with others as needed. Plan: Q15 min safety checks CV (retracted 3 day) Clozapine 300mg qhs (last time discharged on clozapine 275 q.h.s.); will see if slightly increased dose can help improve patient's insight and therefore adherence ANC weekly (ANC 4.7 on 03/08/22) clonazepam 0.5mg bID (helped in past); will switch to afternoon and evening since sleeps in much of morning. Discontinue olanzapine for now (of only partial, limited effective; patient refusing) Discontinue Seroquel; patient refusing and overall to sedating to be effective Discontinue Abilify (not effective, patient refusing) Monitor response to medications. Monitor for safety in the milieu. Discharge on stabilization. Patient seen. Chart reviewed. Discussed with team. Obtain collateral contact info as needed I spent minutes with the patient and/or on the patient floor today, great er than?50% of which was spent counseling/coordinating care. Reason for contiued inpatient stay Substantial Risk for: stable for discharge
[2022-03-12 17:09] VITALS: BP 108/68; PULSE 112; RESP 16; TEMP 36.6; O2SAT 98
[2022-03-12] MEDS: cloZAPine ODT 25 MG TAB.RAPDIS 300 MG PO (19:02)
[2022-03-13 06:00] VITALS: BP 113/62; PULSE 120; RESP 18; TEMP 36.6; O2SAT 95
[2022-03-13] MEDS: Nicotine Polacrilex 2 MG GUM 4 MG BUCCAL ×9 (08:49→20:48)
--- NOTE | 2022-03-13 16:46 | P.PNPSI_ITS ---
Subjective Subjective Date of Service: 03/13/22 Reason For Visit: Psychosis Interim History: No change; good mood, friendly, still internally preoccupied but able to be appropriate when interacting with others. Looking forward to going home. Mental Status Exam Mental Status Exam Narrative: Pt is alert and oriented; behavior is mostly organized when needs to be; patient is not in distress; dressed in casual attire, well groomed; mood is good and affect congruent, friendly; adequate; eye contact; Speech is normal volume; no psychomotor agitation present; thought process is goal oriented; Thought content is on discharge; also on undisclosed internally preoccupied thoughts; denies SI/HI. Denies AH but pt self-dialoguing, laughing to himself, answering questions throughout the day and appears internally preoccupied; Patients insight and judgment impaired but improved and at baseline. Diagnostics Vital Signs (24Hr): Vital Signs - 24 hr 03/12/22 17:09 03/13/22 06:00 Temperature 97.8 F 97.8 F Pulse Rate 112 H 120 H Respiratory Rate 16 18 Blood Pressure 108/68 113/62 Pulse Oximetry 98 95 Oxygen Delivery Method Room Air Room Air BMI result Body Mass Index 21.1 Labs Results: 02/22/22 14:38 02/22/22 14:38 Medications Medications Current Medications Acetaminophen (Acetaminophen 325 Mg Tablet) 650 mg PO Q6H PRN PRN Reason: Headache/Pain Mild Scale (1-3) Al Hydroxide/Mg Hydroxide (Magnesium Hydrox/Alum Hydrox 30 Ml Oral.Susp) 30 ml PO Q6H PRN PRN Reason: Heartburn/Nausea Clonazepam (Clonazepam 0.5 Mg Tablet) 0.5 mg PO BEDTIME PRN PRN Reason: anxiety/insomnia Last Admin: 03/09/22 19:16 Dose: 0.5 mg Clozapine (Clozapine Odt 25 Mg Tab.Rapdis) 300 mg PO BEDTIME EUGENIA Last Admin: 03/12/22 19:02 Dose: 300 mg Magnesium Hydroxide (Milk Of Magnesia 30 Ml Oral.Susp) 30 ml PO DAILY PRN PRN Reason: Constipation Nicotine Polacrilex (Nicotine Polacrilex 2 Mg Gum) 4 mg BUCCAL Q1H PRN PRN Reason: Nicotine Cravings Last Admin: 03/13/22 15:19 Dose: 4 mg Olanzapine (Olanzapine Odt 10 Mg Tab.Rapdis) 10 mg TRANSLINGU TID PRN PRN Reason: agitation Quetiapine Fumarate (Quetiapine Fumarate 50 Mg Tablet) 50 mg PO Q4H PRN PRN Reason: psychosis, agitation, anxiety Trazodone HCl (Trazodone Hcl 50 Mg Tablet) 50 mg PO BEDTIME PRN PRN Reason: Insomnia Allergies Allergies Allergy/AdvReac Type Severity Reaction Status Date / Time diphenhydramine Allergy Unknown unknown Verified 10/12/20 04:33 [From BENADRYL] haloperidol [From HALDOL] Allergy Unknown unknown Verified 10/12/20 04:33 paliperidone AdvReac Severe dystonia Verified 03/30/21 23:47 Assessment & Plan Assessment & Plan (1) Schizoaffective disorder, bipolar type: Status: Acute Code(s): F25.0 - Schizoaffective disorder, bipolar type Plan Jose is a 26 y.o. male with a history of schizoaffective disorder, bipolar type. Pt has hx of multiple previous inpatient admissions for psychotic sx i.e. religiosity, command AH, internal preoccupation, paranoid ideations, and agitation. Pt presented to [facility] on 02/22/22 after pt's mother called EMS because of non-adherence to medications. Per pharmacy records, pt last filled clozapine in 08/2021, however was non-adherent and OP provider Bennett Light switched him to abilify 10 mg daily on 01/26/2022. Pt has decompensated, psychotic and disorganized. -reportedly, patient was doing relatively well in the community until it became very difficult for visiting nurse to find patient to administer clozapine. 02/28 Patient disorganized in speech and behavior; no insight with significant thought blocking; internally preoccupied Mother reports patient has been wandering aimlessly, confused and disorganized in the streets, night eating, not recognizing family and has been overheard daily saying no briana, don't do it...you're a good gurjit... Which is the same behavior patient demonstrated in the past, just prior to cutting his neck, in a near lethal suicide attempt. Patient has history of auditory hallucinations c ommanding him to self-harm. Patient has no insight, is internally preoccupied disorganized in both speech and behavior and is in imminent risk for harm to self. Will petition the court for involuntary commitment and substituted judgment. -will restart clozapine which to technical proposal writer's knowledge is the only medications that has been effective 03/01 remains floridly psychotic, disorganized but did take medications 03/02 patient more able to have a conversation and is goal oriented, however difficult to engage; has no insight at all into psychiatric illness. He said he will take medications so that he can get out of here. Disorganized behaviors, internally preoccupied, talking to himself, spitting on the floor and the wall. At this time, technical proposal writer does not think patient will continue taking medications on discharge and that he needs more time to stabilize in order to remain safe in the community. 03/03 Remains disorganized and difficult To engage. Will switch clozapine to oral disintegrating tablets to help better ensure compliance as patient has history of cheeking medications. 03/04 patient more friendly today and willing to have brief, polite discussion; wants medications increased so that he can discharges soon as possible. Remains with disorganized behaviors and engaged in internal dialogue with himself, however he stops this on approach and is able to more or less, appropriately i nteract with staff. 03/06 Patient mostly keeps to himself During which time he will self dialogue and is clearly internally preoccupied; however when he needs some thin or interacts with staff, he is able to be outward focused and goal oriented 03/08 continues to stabilize 03/09 Closing in on baseline; meeting with mom and CHD went well and patient agrees to continue to take medications and meet with administering staff post discharge; also agrees to weekly lab work. Mom feels that patient is getting close to his baseline and accepts that insight is not likely achievable at this time 03/10 Continue to stabilize; planning for discharge early next week, Sunday, giving time for [facility] to set up post discharge services so that patient will have no lapse in treatment. 03/11 Patient stabilizing well 03/12 patient remains at what is likely his baseline which is friendly, mostly polite, joking around sometimes; no insight but med compliant; internally preoccupied and vigorously self dialoguing when not engaging with others however he can stop this and interact with others as needed. 03/13 patient at baseline, good mood, says he will continue taking his medications and get blood work and will continue working with his outpatient team. Patient is not in imminent risk for harm to self or others and his request for discharge honored. Plan: Q15 min safety checks CV (retracted 3 day) Clozapine 300mg qhs (last time discharged on clozapine 275 q.h.s.); will see if slightly increased dose can help improve patient's insight and therefore adherence ANC weekly (ANC 4.7 on 03/08/22) clonazepam 0.5mg bID (helped in past); will switch to afternoon and evening since sleeps in much of morning. Discontinue olanzapine for now (of only partial, limited effective; patient refusing) Discontinue Seroquel; patient refusing and overall to sedating to be effective Discontinue Abilify (not effective, patient refusing) Monitor response to medications. Monitor for safety in the milieu. Discharge on stabilization. Patient seen. Chart reviewed. Discussed with team. Obtain collateral contact info as needed I spent minutes with the patient and/or on the patient floor today, greater than?50% of which was spent counseling/coordinating care. Patient educated on: medication risk/benefits Informed Consent: understands Reason for contiued inpatient stay Substantial Risk for: stable for discharge
[2022-03-13 17:46] VITALS: BP 135/82; PULSE 100; TEMP 36.9
[2022-03-13] MEDS: cloZAPine ODT 25 MG TAB.RAPDIS 300 MG PO (19:05)
[2022-03-14] MEDS: Nicotine Polacrilex 2 MG GUM 4 MG BUCCAL ×3 (04:55→11:13)
--- NOTE | 2022-03-14 09:27 | PM.PSYDC ---
DS: Providers Provider Date of Service: 03/14/22 Date of admission: 02/22/22 23:07 Date of discharge: 03/14/22 Primary care physician: Nicolas Godfrey MD Admitting clinician: Tatiana Camacho Attending physician on discharge: Clem Light DS: Diagnosis Discharge Diagnosis (1) Schizoaffective disorder, bipolar type: Status: Acute DS: Medications Discharge Medications Home Medications: Previous Rx's Medication Instructions Recorded clozapine 100 mg tablet 300 mg PO BEDTIME 30 days #90 tabs 03/14/22 nicotine (polacrilex) 2 mg gum 4 mg buccal Q1H PRN Nicotine 03/14/22 Cravings 30 days #100 ea Mental Status Exam Mental Status Exam Narrative: Pt is alert and oriented; behavior is mostly organized when needs to be; patient is not in distress; dressed in casual attire, well groomed; mood is good and affect congruent, friendly; adequate; eye contact; Speech is normal volume; no psychomotor agitation present; thought process is goal oriented; Thought content is on discharge; also on undisclosed internally preoccupied thoughts; denies SI/HI. Denies AH but pt self-dialoguing, laughing to himself, answering questions throughout the day and appears internally preoccupied; Patients insight and judgment impaired but improved and at baseline. Data Data Completed and Pending Completed studies during hospitalization [Text1]: 03/08/22 10:19 Absolute Neuts (auto) 4.7 DS: Summary Hospital Course Hospital Course: Jose is a 26 y.o. male with a history of schizoaffective disorder, bipolar type. Pt has hx of multiple previous inpatient admissions for psychotic sx i.e. religiosity, command AH, internal preoccupation, paranoid ideations, and agitation. Pt presented to [facility] ED on 02/22/22 after pt's mother called EMS because of non-adherence to medications. Per pharmacy records, pt last filled clozapine in 08/2021, however was non-adherent and OP provider Bennett Light switched him to abilify 10 mg daily on 01/26/2022. Pt has decompensated, psychotic and disorganized. -reportedly, patient was doing relatively well in the community until it became very difficult for visiting nurse to find patient to administer clozapine. 8/9 Patient disorganized in speech and behavior; no insight with significant thought blocking; internally preoccupied Mother reports patient has been wandering aimlessly, confused and disorganized in the streets, night eating, not recognizing family and has been overheard daily saying no briana, don't do it...you're a good gurjit... Which is the same behavior patient demonstrated in the past, just prior to cutting his neck, in a near lethal suicide attempt.? Patient has history of auditory hallucinations commanding him to self-harm.? Patient has no insight, is internally preoccupied disorganized in both speech and behavior and is in imminent risk for harm to self.? Will petition the court for involuntary commitment and substituted judgment. -will restart clozapine which to senior mortgage underwriter's knowledge is the only medications that has been effective 03/01 remains floridly psychotic, disorganized but did take medications 03/02 patient more able to have a conversation and is goal oriented, however difficult to engage; has no insight at all into psychiatric illness.? He said he will take medications so that he can get out of here.? Disorganized behaviors, internally preoccupied, talking to himself, spitting on the floor and the wall.? At this time, senior mortgage underwriter does not think patient will continue taking medications on discharge and that he needs more time to stabilize in order to remain safe in the community. 03/03 Remains disorganized and difficult To engage.? Will switch clozapine to oral disintegrating tablets to help better ensure compliance as patient has history of cheeking medications. 03/04 patient more friendly today and willing to have brief, polite discussion; wants medications increased so that he can discharges soon as possible.? Remains with disorganized behaviors and engaged in internal dialogue with himself, however he stops this on approach and is able to more or less, appropriately interact with staff. 03/06 Patient mostly keeps to himself During which time he will self dialogue and is clearly internally preoccupied; however when he needs some thin or interacts with staff, he is able to be outward focused and goal oriented 03/08 continues to stabilize 03/09 Closing in on baseline; meeting with mom and CHD went well and patient agrees to continue to take medications and meet with administering staff post discharge; also agrees to weekly lab work.? Mom feels that patient is getting close to his baseline and accepts that insight is not likely achievable at this time 03/10 Continue to stabilize; planning for discharge early next week, Sunday, giving time for [facility] to set up post discharge services so that patient will have no lapse in treatment. 03/11 Patient stabilizing well 03/12 patient remains at what is likely his baseline which is friendly, mostly polite, joking around sometimes; no insight but med compliant; internally preoccupied and vigorously self dialoguing when not engaging with others however he can stop this and interact with others as needed. patient at baseline, good mood, says he will continue taking his medications and get blood work and will continue working with his outpatient team.? Given his history and illness, patient does remain vulnerable to decompensation at some point. However as mentioned he is at baseline, taking medications that are helpful and agreeing to continue with treatment. Patient has strong support in the community from both [facility] staff and his family. Patient is not in imminent risk for harm to self or others and his request for discharge honored. Time spent discussing smoking cessation with patient: 3 to 10 minutes Status at Discharge Functional status at discharge: independent ambulation Overall status at discharge: patient is back to baseline Time Spent with Patient Time attestation: Total time spent providing and/or coordinating discharge services: Time spent: Less than 30 minutes Discharge Plan Discharge Patient Disposition: Home, Self-Care Discharge Diagnosis: Schizoaffective disorder, bipolar type Referrals: Dr. Light [Other] - 1 Week (Follow-up discharge appointment with psychiatrist Appointment is by tele-health) Nicolas Godfrey MD [Primary Care Provider] - 03/22/22 11:30 am (IN OFFICE) Discharge Medications: New nicotine (polacrilex) 2 mg Gum 4 mg buccal Q1H PRN (Reason: Nicotine Cravings) 30 Days Qty: 100 0RF clozapine 100 mg Tablet 300 mg PO BEDTIME 30 Days Qty: 90 0RF Discontinued lorazepam 1 mg tablet 1 - 2 tab PO DAILY PRN (Reason: Anxiety) aripiprazole 10 mg tablet 1 tab PO DAILY Discharge Orders: Discharge Order (Routine); Ordered 03/14/22 Ordered By: Clem Light Diet: Regular diet Activity on Discharge: As tolerated Stand Alone Forms: Patient Portal Discharge page, Community Support Care Plan Goals: Maintain mood and safe behaviors Take medications as prescribed Practice coping skills Continue with outpatient providers and reach out to them as needed Health Concerns: Mood stability and behaviors Plan of Treatment: Follow up with your psychiatric provider and other outpatient providers regarding above concerns Take medications as prescribed Assessment: Risk assessment at time of discharge:? Patient was interviewed prior to discharge and found to be fully oriented and without any SI or HI. Patient has insight and demonstrates good judgment in terms of wanting to continue treatment. Patient is not in imminent risk of harm to self or others and has a safety plan that includes presenting to the closest ER or calling 911 if feeling unsafe.? Patient has been observed closely by nursing and unit staff throughout admission; patient has not engaged in any behaviors that suggest dangerousness to self or others and has demonstrated appropriate behaviors and impulse control Discharge Date/Time: 03/14/22 13:15
[2022-03-14 10:04] LABS: Neut%MD 60.9 %; Neutrophils Absolute Auto 3.3 x10*3/uL (2.0-8.3); WBCANC 5.4 X10*3/uL
[2022-03-18 16:03] LABS: Clozapine (Clozaril) 282 mcg/L; Norclozapine 178 mcg/L (25-400)
== END 2022-03-14 13:15 | disposition home or self-care (01) | DRG 750 ==
LOC: HO.ED 14:38 → HO.PM5 23:14
PROVIDERS: Admitting Provider Registered Nurse; Emergency Provider Emergency Medicine; PCP Internal Medicine; Visit Provider Psychiatry & Neurology Psychiatry
DX: F25.0 Schizoaffective disorder, bipolar type (principal); Z91.14 Patient's other noncompliance with medication regimen; F41.9 Anxiety disorder, unspecified; Z20.822 Contact with and (suspected) exposure to COVID-19; Z87.891 Personal history of nicotine dependence; Z88.8 Allergy status to other drugs, medicaments and biological substances
CPT/HCPCS: 36415; 80053; 80061; 80159; 80307; 82077; 82607; 82746; 83036; 83735; 84439; 84443; 85025; 85048; 87635; 99285

== ENCOUNTER 2022-04-25 16:50 | Inpatient (IN) | payer OTHER, SELFPAY ==
--- NOTE | 2022-04-25 | ECG_ITS ---
Test Reason : MEDICAL CLERANCE Blood Pressure : / mmHG Vent. Rate : 072 BPM Atrial Rate : 072 BPM P-R Int : 128 ms QRS Dur : 082 ms QT Int : 366 ms P-R-T Axes : 086 084 062 degrees QTc Int : 400 ms Normal sinus rhythm Biatrial enlargement Abnormal ECG When compared with ECG of 03-JAN-2022 17:02, Biatrial enlargement is now Present Heart rate has increased Referred By: Kayley Miranda Electronically Signed By:LAVINIA MELLO
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
[2022-04-25 17:36] VITALS: BP 127/53; PULSE 80; RESP 18; TEMP 37; O2SAT 98; BMI 21.1
--- NOTE | 2022-04-25 18:46 | PHA.MEDREC ---
Pharmacy Consult ? Medication Reconciliation Pharmacy has completed the medication reconciliation. Spoke to patient's mother who states that he only took medications for 1 week after discharge. Before his last admission, he handled his own meds, but since then, Scott was delivering and administering meds. She states after 1 week, patient stopped answering phone or setting up delivery/admin. PATIENT HAS NOT HAD CLOZAPINE SINCE ROUGHLY 03/21/22 [facility]
[2022-04-25 18:53] LABS: Appearance Urine Cloudy; Color Urine Dark Yellow; Glucose Urine UA Negative (Negative); Leukocyte Esterase Urine Trace (Negative); Nitrite Urine Negative (Negative); PH 5.5 (5.0-9.0); Specific Gravity - Urine >= 1.030 (1.005-1.025); UMIC TRIGGER UACC YES; Urine Blood Negative (Negative); Urine Ketones 40 mg/dL (Negative); Urine Protein Trace mg/dL (Neg-Trace)
[2022-04-25 19:10] LABS: Amphetamine Screen Urine Not Detected (Not Detect); Barbiturates, Urine Not Detected (Not Detect); Benzodiazepines Screen Urine Not Detected (Not Detect); Cannabinoid Screen Urine Not Detected (Not Detect); Cocaine Screen Urine Not Detected (Not Detect); Fentanyl, urine Not Detected (Not Detect); Opiate Screen Urine Not Detected (Not Detect); Phencyclidine Screen Urine Not Detected (Not Detect)
[2022-04-25 19:11] LABS: Bacteria Urine None Seen (None Seen); Calcium Oxalate Crystals Urine Present; Squamous Epithelial Cell Urine 0-2 /HPF (0-2); WBC Urine 0-5 /HPF (0-5)
[2022-04-25 19:45] LABS: MANUAL DIFF FLAG NO
[2022-04-25 19:47] LABS: Basophils Absolute Auto 0.1 X10*3/uL (0.0-0.2); Basophils Percent Auto 0.6 % (0-2); Eosinophils Absolute Auto 0.1 X10*3/uL (0.0-0.4); Eosinophils Percent Auto 0.9 % (0-4); Hematocrit 42.1 % (42.0-52.0); Imm Gran Abs Auto 0.01 X10*3/uL (0.00-0.03); Imm Gran Pct Auto 0.1 % (0.0-0.4); Lymphocytes Absolute Auto 1.5 X10*3/uL (1.2-4.9); Lymphocytes Percent Auto 18.7 % (20-40); Mean Corpuscular HGB Conc 35.6 g/dl (31.0-36.0); Mean Corpuscular Hemoglobin 31.3 pg (27.0-33.0); Mean Corpuscular Volume 87.7 fL (80.0-98.0); Mean Platelet Volume 9.2 fL (9.4-12.4); Monocytes Absolute Auto 0.5 X10*3/uL (0.1-1.2); Monocytes Percent Auto 6.3 % (2-11); Neutrophils Percent Auto 73.4 % (45-73); Platelet Count 228 X10*3/uL (160-400); Red Cell Distribution Width 11.9 % (11.0-16.0); White Blood Count 8.1 X10*3/uL (4.8-10.8)
[2022-04-25 20:11] LABS: COVID-19 Test Negative (Negative)
[2022-04-25 20:21] LABS: Alanine Aminotransferase 16 U/L (0-40); Albumin Level 4.7 g/dL (3.5-5.0); Alkaline Phosphatase 59 U/L (39-117); Anion Gap 18 (12-20); Aspartate Amino Transferase 23 U/L (5-37); Bilirubin Total 0.7 mg/dL (0.0-1.0); Blood Urea Nitrogen 14 mg/dL (9-16); Calcium 9.2 mg/dL (8.4-10.2); Carbon Dioxide 22 mmol/L (22-29); Chloride 105 mmol/L (96-108); Creatinine Clr Calc Pharmacy 126.2; Estimated Glomerular Filt Rate > 60; Ethanol < 10 mg/dL; Glucose Random 116 mg/dL (60-115); Potassium 3.9 mmol/L (3.3-5.1); Sodium 141 mmol/L (135-145); Total Protein 6.9 g/dL (6.5-8.0)
[2022-04-25 21:33] VITALS: BP 125/65; PULSE 74; RESP 16; TEMP 35.9; O2SAT 98; BMI 21.0
--- NOTE | 2022-04-25 22:04 | PC.ADMIT ---
Pt is a 26year old male admitted for inpatient level of care after Pt was found to be at high risk for SI after assessment. Pt is reported to have left home and has been on the street for 3 days without eating and wondering the streets at night. Pt is reported to be exhibiting the same behaviors as he did right before he attempted suicide 1 year ago. Pt is alert and disorganized, VSS, Covid negative, tox screen negative. Pt denies Suicide ideation, plan or intent. Pt agrees to let staff know if SI occurs. He also denied any homicidal ideation, plan or intent. But was quick to add that he will notify staff if HI occurs. He denies experiencing any AH/VH. Pt was however observed to be responding to internal stimuli throughout the assessment. Eye contact is normal. However Pt needed prompts to follow admission assessment. Speech is normal with regular rhythm, rate and alicja. Affect is flat, mood is guarded. Pt is reported to be non compliant with his medication. Admission orders obtained.
[2022-04-26] MEDS: Nicotine Polacrilex 2 MG GUM 4 MG BUCCAL ×2 (08:40→20:31)
--- NOTE | 2022-04-26 10:14 | PC.NURSE ---
Refused am labs. aware.
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
[2022-04-26] MEDS: cloZAPine ODT 25 MG TAB.RAPDIS PO ×2 (13:36→21:40)
[2022-04-27] MEDS: Nicotine Polacrilex 2 MG GUM 4 MG BUCCAL ×3 (05:02→21:13)
--- NOTE | 2022-04-27 08:56 | P.PNPSI_ITS ---
Subjective Subjective Date of Service: 04/27/22 Reason For Visit: psych eval Subjective Notes: Tesfaye Warning (tesfaye warning given on 04/27) Interim History: Patient disorganized, powerfully internally preoccupied and responding to internal stimuli To such a degree that he can barely take a pause to interact with flex o writer operator. He says that he is Fine And that he slept okay last night and then abruptly walks away, Back to self dialoguing. Mental Status Exam Mental Status Exam Narrative: Pt is alert and oriented; behavior is disorganized, guarded and barely cooperative; patient is not in distress; dressed in casual attire with full santiago; mood fine but affect constricted; poor eye contact poor; Speech is low volume; no psychomotor agitation present; thought process is goal oriented; Thought content is on undisclosed internally preoccupied thoughts; denies SI/HI. Denies AH but absorbed in responding to internal stimuli and self-dialoguing, laughing to himself, asking/answering self questions throughout the day; Patients insight and judgment impaired. Diagnostics Vital Signs (24Hr): BMI result Body Mass Index 21.0 Labs Results: 04/25/22 19:39 04/25/22 19:39 Labs: Laboratory Results - last 48 hr 04/25/22 04/25/22 04/25/22 19:39 19:39 19:39 WBC 8.1 RBC 4.80 Hgb 15.0 Hct 42.1 MCV 87.7 MCH 31.3 MCHC 35.6 RDW 11.9 Plt Count 228 MPV 9.2 L Immature Gran % (Auto) 0.1 Neut % (Auto) 73.4 H Lymph % (Auto) 18.7 L [place] % (Auto) 6.3 Eos % (Auto) 0.9 Baso % (Auto) 0.6 Lymph # (Auto) 1.5 [place] # (Auto) 0.5 Eos # (Auto) 0.1 Baso # (Auto) 0.1 Abs Immat Gran (auto) 0.01 Absolute Neuts (auto) 6.0 Absolute Nucleated RBC 0.000 Nucleated RBC % (auto) 0.0 Sodium 141 Potassium 3.9 Chloride 105 Carbon Dioxide 22 Anion Gap 18 BUN 14 Creatinine 0.91 Estim Creat Clear Calc 126.2 Estimated GFR > 60 Random Glucose 116 H Calcium 9.2 Total Bilirubin 0.7 AST 23 ALT 16 Alkaline Phosphatase 59 Total Protein 6.9 Albumin 4.7 Urine Color Urine Appearance Urine pH Ur Specific [place] Urine Protein Urine Glucose (UA) Urine Ketones Urine Blood Urine Nitrite Ur Leukocyte Esterase Urine RBC Urine WBC Ur Squamous Epith Cells Calcium Oxalate Crystal Urine Bacteria Hyaline Casts Urine Opiates Screen Urine Fentanyl Screen Ur Barbiturates Screen Ur Phencyclidine Scrn Ur Amphetamines Screen U Benzodiazepines Scrn Urine Cocaine Screen U Marijuana (THC) Screen Ethyl Alcohol < 10 COVID-19 (ALAN) Negative COVID-19 Clin Com See Note 04/25/22 04/25/22 Unknown Unknown WBC RBC Hgb Hct MCV MCH MCHC RDW Plt Count MPV Immature Gran % (Auto) Neut % (Auto) Lymph % (Auto) [place] % (Auto) Eos % (Auto) Baso % (Auto) Lymph # (Auto) [place] # (Auto) Eos # (Auto) Baso # (Auto) Abs Immat Gran (auto) Absolute Neuts (auto) Absolute Nucleated RBC Nucleated RBC % (auto) Sodium Potassium Chloride Carbon Dioxide Anion Gap BUN Creatinine Estim Creat Clear Calc Estimated GFR Random Glucose Calcium Total Bilirubin AST ALT Alkaline Phosphatase Total Protein Albumin Urine Color Dark Yellow Urine Appearance Cloudy Urine pH 5.5 Ur Specific [place] >= 1.030 H Urine Protein Trace Urine Glucose (UA) Negative Urine Ketones 40 Urine Blood Negative Urine Nitrite Negative Ur Leukocyte Esterase Trace H Urine RBC 3-5 H Urine WBC 0-5 Ur Squamous Epith Cells 0-2 Calcium Oxalate Crystal Present Urine Bacteria None Seen Hyaline Casts 11-20 Urine Opiates Screen Not Detected Urine Fentanyl Screen Not Detected Ur Barbiturates Screen Not Detected Ur Phencyclidine Scrn Not Detected Ur Amphetamines Screen Not Detected U Benzodiazepines Scrn Not Detected Urine Cocaine Screen Not Detected U Marijuana (THC) Screen Not Detected Ethyl Alcohol COVID-19 (ALAN) COVID-19 Clin Com Medications Medications Current Medications Acetaminophen (Acetaminophen 325 Mg Tablet) 650 mg PO Q6H PRN PRN Reason: Headache/Pain Mild Scale (1-3) Al Hydroxide/Mg Hydroxide (Magnesium Hydrox/Alum Hydrox 30 Ml Oral.Susp) 30 ml PO Q6H PRN PRN Reason: Heartburn/Nausea Clonazepam (Clonazepam 0.5 Mg Tablet) 0.5 mg PO BEDTIME PRN PRN Reason: anxiety, insomnia Clozapine (Clozapine Odt 25 Mg Tab.Rapdis) 25 mg PO BEDTIME EUGENIA Last Admin: 04/26/22 21:40 Dose: 25 mg Hydroxyzine HCl (Hydroxyzine Hcl 25 Mg Tablet) 25 mg PO Q6H PRN PRN Reason: Anxiety Magnesium Hydroxide (Milk Of Magnesia 30 Ml Oral.Susp) 30 ml PO DAILY PRN PRN Reason: Constipation Nicotine Polacrilex (Nicotine Polacrilex 2 Mg Gum) 4 mg BUCCAL Q2H PRN PRN Reason: nicotine withdrawal Last Admin: 04/27/22 05:02 Dose: 4 mg Olanzapine (Olanzapine Odt 10 Mg Tab.Rapdis) 10 mg TRANSLINGU TID PRN PRN Reason: agitation Quetiapine Fumarate (Quetiapine Fumarate 50 Mg Tablet) 50 mg PO Q4H PRN PRN Reason: psychosis, agitation, anxiety Trazodone HCl (Trazodone Hcl 50 Mg Tablet) 50 mg PO BEDTIME PRN PRN Reason: Insomnia Allergies Allergies Allergy/AdvReac Type Severity Reaction Status Date / Time diphenhydramine Allergy Unknown unknown Verified 10/12/20 04:33 [From BENADRYL] haloperidol [From HALDOL] Allergy Unknown unknown Verified 10/12/20 04:33 paliperidone AdvReac Severe dystonia Verified 03/30/21 23:47 Assessment & Plan Assessment & Plan (1) Schizoaffective disorder, bipolar type: Status: Acute Code(s): F25.0 - Schizoaffective disorder, bipolar type Plan Jose is a 26 y.o. male with a history of schizoaffective disorder, bipolar type. Pt has hx of multiple previous inpatient admissions for psychotic sx, last on unit February 2022, command AH, internal preoccupation, paranoid ideations, and agitation; past hx of serious suicide attempt when psychotic. Pt presents To the emergency room after family called the police for a wellness check, with patient disorganized, wandering the streets at night, not eating in the face of medica tion non adherence. Patient is a limited historian. He is pleasant and friendly on admission, knowing this flex o writer operator. He says he stopped taking medications because he did have a refill. -patient has recently been willing to restart clozapine and once titrated back to home dose returns to baseline. Patient did try to pretend he took clozapine today but admitted he did not and said he will do so going forward. PLAn: CV Q 15 minute checks Increase to clozapine 75 mg q.h.s.; (got 50mg yesterday; bp wnl); will use ODT at first since pt tries to check it; will titrate back to home dose of 300 mg. Patient does not like medication in the morning weekly ANC I spent minutes with the patient and/or on the patient floor today, greater than?50% of which was spent counseling/coordinating care. Patient educated on: diagnosis Informed Consent: does not understand Reason for contiued inpatient stay Substantial Risk for: inability to function and rapid decompensation
[2022-04-27 16:57] VITALS: RESP 16
[2022-04-27] MEDS: cloZAPine ODT 25 MG TAB.RAPDIS 75 MG PO (20:02)
[2022-04-28 06:00] VITALS: BP 112/61; PULSE 68; RESP 16; TEMP 35.8; O2SAT 99
[2022-04-28 18:00] VITALS: RESP 16
--- NOTE | 2022-04-28 18:17 | HO.PSYCHPN ---
Subjective Subjective Date of Service: 04/28/22 Reason For Visit: psych eval Interim History: Patient disorganized, talking to himself having full on conversations with himself and muttering under his breath, sometimes swearing. Patient either lying in bed or pacing the halls; Very difficult with which to engage. Mental Status Exam Mental Status Exam Narrative: Pt is alert and oriented; behavior is disorganized, guarded and barely cooperative; patient is not in distress; dressed in casual attire with full santiago; mood fine but affect constricted; poor eye contact poor; Speech is low volume; psychomotor agitation present; thought process is goal oriented; Thought content is on undisclosed internally preoccupied thoughts; denies SI/HI. Denies AH but absorbed in responding to internal stimuli and self-dialoguing, laughing to himself, asking/answering self questions throughout the day; Patients insight and judgment impaired. Diagnostics Vital Signs (24Hr): Vital Signs - 24 hr 04/28/22 06:00 Temperature 96.5 F L Pulse Rate 68 Respiratory Rate 16 Blood Pressure 112/61 Pulse Oximetry 99 Oxygen Delivery Method Room Air BMI result Body Mass Index 21.0 Labs Results: 04/25/22 19:39 04/25/22 19:39 Medications Medications Current Medications Acetaminophen (Acetaminophen 325 Mg Tablet) 650 mg PO Q6H PRN PRN Reason: Headache/Pain Mild Scale (1-3) Al Hydroxide/Mg Hydroxide (Magnesium Hydrox/Alum Hydrox 30 Ml Oral.Susp) 30 ml PO Q6H PRN PRN Reason: Heartburn/Nausea Clonazepam (Clonazepam 0.5 Mg Tablet) 0.5 mg PO BEDTIME PRN PRN Reason: anxiety, insomnia Clozapine (Clozapine Odt 25 Mg Tab.Rapdis) 100 mg PO BEDTIME EUGENIA Hydroxyzine HCl (Hydroxyzine Hcl 25 Mg Tablet) 25 mg PO Q6H PRN PRN Reason: Anxiety Magnesium Hydroxide (Milk Of Magnesia 30 Ml Oral.Susp) 30 ml PO DAILY PRN PRN Reason: Constipation Nicotine Polacrilex (Nicotine Polacrilex 2 Mg Gum) 4 mg BUCCAL Q2H PRN PRN Reason: nicotine withdrawal Last Admin: 04/27/22 21:13 Dose: 4 mg Olanzapine (Olanzapine Odt 10 Mg Tab.Rapdis) 10 mg TRANSLINGU TID PRN PRN Reason: agitation Quetiapine Fumarate (Quetiapine Fumarate 50 Mg Tablet) 50 mg PO Q4H PRN PRN Reason: psychosis, agitation, anxiety Trazodone HCl (Trazodone Hcl 50 Mg Tablet) 50 mg PO BEDTIME PRN PRN Reason: Insomnia Allergies Allergies Allergy/AdvReac Type Severity Reaction Status Date / Time diphenhydramine Allergy Unknown unknown Verified 10/12/20 04:33 [From BENADRYL] haloperidol [From HALDOL] Allergy Unknown unknown Verified 10/12/20 04:33 paliperidone AdvReac Severe dystonia Verified 03/30/21 23:47 Assessment & Plan Assessment & Plan (1) Schizoaffective disorder, bipolar type: Status: Acute Code(s): F25.0 - Schizoaffective disorder, bipolar type Plan Jose is a 26 y.o. male with a history of schizoaffective disorder, bipolar type. Pt has hx of multiple previous inpatient admissions for psychotic sx, last on unit February 2022, command AH, internal preoccupation, paranoid ideations, and agitation; past hx of serious suicide attempt when psychotic. Pt presents To the emergency room after family called the police for a wellness check, with patient disorganized, wandering the streets at night, not eating in the face of medication non adherence. Patient is a limited historian. He is pleasant and friendly on admission, knowing this copywriter. He says he stopped taking medications because he did have a refill. -patient has recently been willing to restart clozapine and once titrated back to home dose returns to baseline. Patient did try to pretend he took clozapine today but admitted he did not and said he will do so going forward. Hospital course 04/28 patient remains disorganized speech and behavior, intensely internally preoccupied and having constant dialogue with himself, unaware that others observe this; denies all psychiatric symptoms including auditory hallucinations. Has been taking clozapine PLAn: CV Q 15 minute checks Increase to clozapine 100 mg q.h.s.;will use ODT at first since pt tries to check it; will titrate back to home dose of 300 mg. Patient does not like medication in the morning weekly ANC I spent minutes with the patient and/or on the patient floor today, greater than?50% of which was spent counseling/coordinating care. Patient educated on: diagnosis Informed Consent: does not understand Reason for contiued inpatient stay Substantial Risk for: harm to self and inability to function
[2022-04-28] MEDS: cloZAPine ODT 25 MG TAB.RAPDIS 100 MG PO (20:12)
[2022-04-29 09:00] VITALS: BP 93/56; PULSE 61; TEMP 36.1
[2022-04-29 18:00] VITALS: BP 112/64; PULSE 6; TEMP 36.1; O2SAT 97
--- NOTE | 2022-04-29 22:36 | HO.PSYCHPN ---
Subjective Subjective Date of Service: 04/29/22 Reason For Visit: psych eval Interim History: No change, patient disorganized, irritable on approach, talking to himself, swearing allowed as he paces the zheng. Denies all psych symptoms Mental Status Exam Mental Status Exam Narrative: Pt is alert and oriented; behavior is disorganized, guarded and barely cooperative; patient is not in distress; dressed in casual attire with full santiago; mood fine but affect constricted; poor eye contact poor; Speech is low volume; psychomotor agitation present; thought process is goal oriented; Thought content is on undisclosed internally preoccupied thoughts; denies SI/HI. Denies AH but absorbed in responding to internal stimuli and self-dialoguing, laughing to himself, asking/answering self questions throughout the day; Patients insight and judgment impaired. Diagnostics Vital Signs (24Hr): Vital Signs - 24 hr 04/29/22 09:00 Temperature 97 F Pulse Rate 61 Blood Pressure 93/56 L BMI result Body Mass Index 21.0 Labs Results: 04/25/22 19:39 04/25/22 19:39 Medications Medications Current Medications Acetaminophen (Acetaminophen 325 Mg Tablet) 650 mg PO Q6H PRN PRN Reason: Headache/Pain Mild Scale (1-3) Al Hydroxide/Mg Hydroxide (Magnesium Hydrox/Alum Hydrox 30 Ml Oral.Susp) 30 ml PO Q6H PRN PRN Reason: Heartburn/Nausea Clonazepam (Clonazepam 0.5 Mg Tablet) 0.5 mg PO BEDTIME PRN PRN Reason: anxiety, insomnia Clozapine (Clozapine Odt 25 Mg Tab.Rapdis) 125 mg PO BEDTIME EUGENIA Hydroxyzine HCl (Hydroxyzine Hcl 25 Mg Tablet) 25 mg PO Q6H PRN PRN Reason: Anxiety Magnesium Hydroxide (Milk Of Magnesia 30 Ml Oral.Susp) 30 ml PO DAILY PRN PRN Reason: Constipation Nicotine Polacrilex (Nicotine Polacrilex 2 Mg Gum) 4 mg BUCCAL Q2H PRN PRN Reason: nicotine withdrawal Last Admin: 04/27/22 21:13 Dose: 4 mg Olanzapine (Olanzapine Odt 10 Mg Tab.Rapdis) 10 mg TRANSLINGU TID PRN PRN Reason: agitation Quetiapine Fumarate (Quetiapine Fumarate 50 Mg Tablet) 50 mg PO Q4H PRN PRN Reason: psychosis, agitation, anxiety Trazodone HCl (Trazodone Hcl 50 Mg Tablet) 50 mg PO BEDTIME PRN PRN Reason: Insomnia Allergies Allergies Allergy/AdvReac Type Severity Reaction Status Date / Time diphenhydramine Allergy Unknown unknown Verified 10/12/20 04:33 [From BENADRYL] haloperidol [From HALDOL] Allergy Unknown unknown Verified 10/12/20 04:33 paliperidone AdvReac Severe dystonia Verified 03/30/21 23:47 Assessment & Plan Assessment & Plan (1) Schizoaffective disorder, bipolar type: Status: Acute Code(s): F25.0 - Schizoaffective disorder, bipolar type Plan Jose is a 26 y.o. male with a history of schizoaffective disorder, bipolar type. Pt has hx of multiple previous inpatient admissions for psychotic sx, last on unit February 2022, command AH, internal preoccupation, paranoid ideations, and agitation; past hx of serious suicide attempt when psychotic. Pt presents To the emergency room after family called the police for a wellness check, with patient disorganized, wandering the streets at night, not eating in the face of medication non adherence. Patient is a limited historian. He is pleasant and friendly on admission, knowing this data analyst report writer. He says he stopped taking medications because he did have a refill. -patient has recently been willing to restart clozapine and once titrated back to home dose returns to baseline. Patient did try to pretend he took clozapine today but admitted he did not and said he will do so going forward. Hospital course 04/28 patient remains disorganized speech and behavior, intensely internally preoccupied and having constant dialogue with himself, unaware that others observe this; denies all psychiatric symptoms including auditory hallucinations. Has been taking clozapine PLAn: CV Q 15 minute checks Increase to clozapine 125 mg q.h.s.;will use ODT at first since pt tries to check it; will titrate back to home dose of 300 mg. Patient does not like medication in the morning weekly ANC I spent minutes with the patient and/or on the patient floor today, greater than?50% of which was spent counseling/coordinating care. Patient educated on: diagnosis Informed Consent: does not understand Reason for contiued inpatient stay Substantial Risk for: inability to function and rapid decompensation
[2022-04-30] MEDS: cloZAPine ODT 25 MG TAB.RAPDIS 75 MG PO (14:01)
--- NOTE | 2022-04-30 20:42 | HO.PSYCHPN ---
Subjective Subjective Date of Service: 04/30/22 Reason For Visit: psych eval Interim History: Last night, patient refused clozapine. Today patient is lying in his bed with his sneakers on. He refused blood pressure this morning as well and irritable on approach. Tire Recapping Machine Operator discussed why patient did not take clozapine any said something to the effect of I do not want it I do not need it. Tire Recapping Machine Operator reminded patient that he wants to be discharged and that the best way to get discharges to continue taking his medications. Initially patient said no again, however he seemed to think about it for a moment and then said he agreed he would take it if it was the disintegrating kind. Tire Recapping Machine Operator nurse approached patient with the disintegrating clozapine medication but again patient refused. After some discussion and a moment of internal pre-occupation and dialouge about meds, patient said he would take it and then put in his mouth. At 1st patient tried to hide the fact that he was removing it from his mouth however most of it seemed to get in. Later on when evening dose came, patient again refused to take his evening medication. Mental Status Exam Mental Status Exam Narrative: Pt is alert and oriented; behavior is disorganized, guarded and barely cooperative; patient is not in distress; dressed in casual attire with full santiago; mood fine but affect constricted; poor eye contact poor; Speech is low volume; intermittent psychomotor agitation and retardation both present; thought process is goal oriented but also disorganized with thought blocking; Thought content is on undisclosed internally preoccupied thoughts; denies SI/HI. Denies AH but absorbed in responding to internal stimuli and self-dialoguing, laughing to himself, asking/answering self questions throughout the day; Patients insight and judgment impaired. Diagnostics Vital Signs (24Hr): BMI result Body Mass Index 21.0 Labs Results: 04/25/22 19:39 04/25/22 19:39 Medications Medications Current Medications Acetaminophen (Acetaminophen 325 Mg Tablet) 650 mg PO Q6H PRN PRN Reason: Headache/Pain Mild Scale (1-3) Al Hydroxide/Mg Hydroxide (Magnesium Hydrox/Alum Hydrox 30 Ml Oral.Susp) 30 ml PO Q6H PRN PRN Reason: Heartburn/Nausea Clonazepam (Clonazepam 0.5 Mg Tablet) 0.5 mg PO BEDTIME PRN PRN Reason: anxiety, insomnia Clozapine (Clozapine Odt 25 Mg Tab.Rapdis) 125 mg PO BEDTIME EUGENIA Last Admin: 04/30/22 00:33 Dose: Not Given Hydroxyzine HCl (Hydroxyzine Hcl 25 Mg Tablet) 25 mg PO Q6H PRN PRN Reason: Anxiety Magnesium Hydroxide (Milk Of Magnesia 30 Ml Oral.Susp) 30 ml PO DAILY PRN PRN Reason: Constipation Nicotine Polacrilex (Nicotine Polacrilex 2 Mg Gum) 4 mg BUCCAL Q2H PRN PRN Reason: nicotine withdrawal Last Admin: 04/27/22 21:13 Dose: 4 mg Olanzapine (Olanzapine Odt 10 Mg Tab.Rapdis) 10 mg TRANSLINGU TID PRN PRN Reason: agitation Quetiapine Fumarate (Quetiapine Fumarate 50 Mg Tablet) 50 mg PO Q4H PRN PRN Reason: psychosis, agitation, anxiety Trazodone HCl (Trazodone Hcl 50 Mg Tablet) 50 mg PO BEDTIME PRN PRN Reason: Insomnia Allergies Allergies Allergy/AdvReac Type Severity Reaction Status Date / Time diphenhydramine Allergy Unknown unknown Verified 10/12/20 04:33 [From BENADRYL] haloperidol [From HALDOL] Allergy Unknown unknown Verified 10/12/20 04:33 paliperidone AdvReac Severe dystonia Verified 03/30/21 23:47 Assessment & Plan Assessment & Plan (1) Schizoaffective disorder, bipolar type: Status: Acute Code(s): F25.0 - Schizoaffective disorder, bipolar type Plan Jose is a 26 y.o. male with a history of schizoaffective disorder, bipolar type. Pt has hx of multiple previous inpatient admissions for psychotic sx, last on unit February 2022, command AH, internal preoccupation, paranoid ideations, and agitation; past hx of serious suicide attempt when psychotic. Pt presents To the emergency room after family called the police for a wellness check, with patient disorganized, wandering the streets at night, not eating in the face of medication non adherence. Patient is a limited historian. He is pleasant and friendly on admission, knowing this flex o writer operator. He says he stopped taking medications because he did have a refill. -patient has recently been willing to restart clozapine and once titrated back to home dose returns to baseline. Patient did try to pretend he took clozapine today but admitted he did not and said he will do so going forward. Hospital course 04/28 patient remains disorganized speech and behavior, intensely internally preoccupied and having constant dialogue with himself, unaware that others observe this; denies all psychiatric symptoms including auditory hallucinations. Has been taking clozapine 04/30 patient refused clozapine dose last night 04/29; he again refused at this morning but then reconsidered and said he would take it though when he took it, he clearly tried to remove it from his mouth however since it was disintegrating type, most of it seemed to be and just did. Later patient refused evening dose and said he does not care about being discharged, does not care about being hears for 6 months -today patient got 75 mg in the morning -nursing staff will try to offer again patient's bedtime dose, however if he continues to refuse taking it, will half the a lower dose again at some point soon PLAn: CV Q 15 minute checks clozapine 125 mg q.h.s.;will use ODT at first since pt tries to check it; will titrate back to home dose of 300 mg.? Patient does not like medication in the morning weekly ANC I spent minutes with the patient and/or on the patient floor today, greater than?50% of which was spent counseling/coordinating care. Patient educated on: diagnosis and medication risk/benefits Informed Consent: does not understand Reason for contiued inpatient stay Substantial Risk for: inability to function
[2022-04-30] MEDS: cloZAPine ODT 25 MG TAB.RAPDIS 125 MG PO (22:54)
--- NOTE | 2022-04-30 23:04 | PC.NURSE ---
Patient initially refused his HS Clozaril and basically said he didn't care if he was hospitalized for 6 months. At 2250 patient requested the Clozaril and accepted the entire 125 mg po dose.
[2022-05-01] MEDS: Nicotine Polacrilex 2 MG GUM 4 MG BUCCAL ×3 (03:37→21:19)
--- NOTE | 2022-05-01 10:46 | HO.PSYCHPN ---
Subjective Subjective Date of Service: 05/01/22 Reason For Visit: psych eval Interim History: pt internally preoccupied to the point where it is very difficult to engage with him. Patient willing to grunt hello or that he is fine but nothing else and otherwise is either sleeping or having an intense back and forth dialogue with himself. Patient again initially refused take clozapine but then was willing to do so. Mental Status Exam Mental Status Exam Narrative: Pt is alert and oriented; behavior is disorganized, guarded and barely cooperative; patient is not in distress; dressed in casual attire with full santiago; mood fine but affect constricted; poor eye contact poor; Speech is low volume; intermittent psychomotor agitation and retardation both present; thought process is goal oriented but also disorganized with thought blocking; Thought content is on undisclosed internally preoccupied thoughts; denies SI/HI. Denies AH but absorbed in responding to internal stimuli and self-dialoguing, laughing to himself, asking/answering self questions throughout the day; Patients insight and judgment impaired. Diagnostics Vital Signs (24Hr): BMI result Body Mass Index 21.0 Labs Results: 04/25/22 19:39 04/25/22 19:39 Medications Medications Current Medications Acetaminophen (Acetaminophen 325 Mg Tablet) 650 mg PO Q6H PRN PRN Reason: Headache/Pain Mild Scale (1-3) Al Hydroxide/Mg Hydroxide (Magnesium Hydrox/Alum Hydrox 30 Ml Oral.Susp) 30 ml PO Q6H PRN PRN Reason: Heartburn/Nausea Chlorpromazine HCl (Chlorpromazine Hcl 100 Mg Tablet) 100 mg PO QID PRN PRN Reason: agitation Clozapine (Clozapine Odt 25 Mg Tab.Rapdis) 125 mg PO BEDTIME EUGENIA Last Admin: 04/30/22 22:54 Dose: 125 mg Hydroxyzine HCl (Hydroxyzine Hcl 25 Mg Tablet) 25 mg PO Q6H PRN PRN Reason: Anxiety Lorazepam (Lorazepam 1 Mg Tablet) 1 mg PO QID PRN PRN Reason: agitation;may give w thorazine Magnesium Hydroxide (Milk Of Magnesia 30 Ml Oral.Susp) 30 ml PO DAILY PRN PRN Reason: Constipation Nicotine Polacrilex (Nicotine Polacrilex 2 Mg Gum) 4 mg BUCCAL Q2H PRN PRN Reason: nicotine withdrawal Last Admin: 05/01/22 03:37 Dose: 2 mg Olanzapine (Olanzapine Odt 10 Mg Tab.Rapdis) 10 mg TRANSLINGU TID PRN PRN Reason: agitation Quetiapine Fumarate (Quetiapine Fumarate 50 Mg Tablet) 50 mg PO Q4H PRN PRN Reason: psychosis, agitation, anxiety Trazodone HCl (Trazodone Hcl 50 Mg Tablet) 50 mg PO BEDTIME PRN PRN Reason: Insomnia Allergies Allergies Allergy/AdvReac Type Severity Reaction Status Date / Time diphenhydramine Allergy Unknown unknown Verified 10/12/20 04:33 [From BENADRYL] haloperidol [From HALDOL] Allergy Unknown unknown Verified 10/12/20 04:33 paliperidone AdvReac Severe dystonia Verified 03/30/21 23:47 Assessment & Plan Assessment & Plan (1) Schizoaffective disorder, bipolar type: Status: Acute Code(s): F25.0 - Schizoaffective disorder, bipolar type Plan Jose is a 26 y.o. male with a history of schizoaffective disorder, bipolar type. Pt has hx of multiple previous inpatient admissions for psychotic sx, last on unit February 2022, command AH, internal preoccupation, paranoid ideations, and agitation; past hx of serious suicide attempt when psychotic. Pt presents To the emergency room after family called the police for a wellness check, with patient disorganized, wandering the streets at night, not eating in the face of medication non adherence. Patient is a limited historian. 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 He says he stopped taking medications because he did have a refill. -patient has recently been willing to restart clozapine and once titrated back to home dose returns to baseline. Patient did try to pretend he took clozapine today but admitted he did not and said he will do so going forward. Hospital course 04/28 patient remains disorganized speech and behavior, intensely internally preoccupied and having constant dialogue with himself, unaware that others observe this; denies all psychiatric symptoms including auditory hallucinations. Has been taking clozapine 04/30 patient refused clozapine dose last night 04/29; he again refused at this morning but then reconsidered and said he would take it though when he took it, he clearly tried to remove it from his mouth however since it was disintegrating type, most of it seemed to be and just did. Later patient refused evening dose and said he does not care about being discharged, does not care about being hears for 6 months -today patient got 75 mg in the morning -nursing staff will try to offer again patient's bedtime dose, however if he continues to refuse taking it, will half the a lower dose again at some point soon 05/01 patient again initially refused clozapine but then agreed to take it; remains floridly psychotic PLAn: CV Q 15 minute checks clozapine 125 mg q.h.s.;will use ODT at first since pt tries to check it; will titrate back to home dose of 300 mg.? Patient does not like medication in the morning weekly ANC I spent minutes with the patient and/or on the patient floor today, greater than?50% of which was spent counseling/coordinating care. Patient educated on: diagnosis Informed Consent: does not understand Reason for contiued inpatient stay Substantial Risk for: inability to function
[2022-05-01 13:43] VITALS: BP 125/54; PULSE 124; TEMP 36.4
[2022-05-01 18:00] VITALS: BP 150/63; PULSE 98; RESP 20; TEMP 36.6; O2SAT 98
[2022-05-01] MEDS: cloZAPine ODT 25 MG TAB.RAPDIS 125 MG PO (19:42)
--- NOTE | 2022-05-02 08:50 | PC.NURSE ---
Refused am labs. aware.
[2022-05-02 16:19] VITALS: BP 131/76; PULSE 76; RESP 18
--- NOTE | 2022-05-02 17:42 | P.PNPSI_ITS ---
Subjective Subjective Date of Service: 05/02/22 Reason For Visit: psych eval Interim History: No change; very difficult with which to engage; floridly psychotic, guarded Mental Status Exam Mental Status Exam Narrative: Pt is alert and oriented; behavior is disorganized, guarded and barely cooperative; patient is not in distress; dressed in casual attire with full santiago; mood fine but affect constricted; poor eye contact poor; Speech is low volume; intermittent psychomotor agitation and retardation both present; thought process is goal oriented but also disorganized with thought blocking; Thought content is on undisclosed internally preoccupied thoughts; denies SI/HI. Denies AH but absorbed in responding to internal stimuli and self-dialoguing, laughing to himself, asking/answering self questions throughout the day; Patients insight and judgment impaired. Diagnostics Vital Signs (24Hr): Vital Signs - 24 hr 05/01/22 18:00 05/02/22 16:19 Temperature 97.8 F Pulse Rate 98 76 Respiratory Rate 20 18 Blood Pressure 150/63 H 131/76 Pulse Oximetry 98 Oxygen Delivery Method Room Air BMI result Body Mass Index 21.0 Labs Results: 04/25/22 19:39 04/25/22 19:39 Medications Medications Current Medications Acetaminophen (Acetaminophen 325 Mg Tablet) 650 mg PO Q6H PRN PRN Reason: Headache/Pain Mild Scale (1-3) Al Hydroxide/Mg Hydroxide (Magnesium Hydrox/Alum Hydrox 30 Ml Oral.Susp) 30 ml PO Q6H PRN PRN Reason: Heartburn/Nausea Chlorpromazine HCl (Chlorpromazine Hcl 100 Mg Tablet) 100 mg PO QID PRN PRN Reason: agitation Clozapine (Clozapine Odt 25 Mg Tab.Rapdis) 150 mg PO BEDTIME EUGENIA Hydroxyzine HCl (Hydroxyzine Hcl 25 Mg Tablet) 25 mg PO Q6H PRN PRN Reason: Anxiety Lorazepam (Lorazepam 1 Mg Tablet) 1 mg PO QID PRN PRN Reason: agitation;may give w thorazine Magnesium Hydroxide (Milk Of Magnesia 30 Ml Oral.Susp) 30 ml PO DAILY PRN PRN Reason: Constipation Nicotine Polacrilex (Nicotine Polacrilex 2 Mg Gum) 4 mg BUCCAL Q2H PRN PRN Reason: nicotine withdrawal Last Admin: 05/01/22 21:19 Dose: 4 mg Olanzapine (Olanzapine Odt 10 Mg Tab.Rapdis) 10 mg TRANSLINGU TID PRN PRN Reason: agitation Quetiapine Fumarate (Quetiapine Fumarate 50 Mg Tablet) 50 mg PO Q4H PRN PRN Reason: psychosis, agitation, anxiety Trazodone HCl (Trazodone Hcl 50 Mg Tablet) 50 mg PO BEDTIME PRN PRN Reason: Insomnia Allergies Allergies Allergy/AdvReac Type Severity Reaction Status Date / Time diphenhydramine Allergy Unknown unknown Verified 10/12/20 04:33 [From BENADRYL] haloperidol [From HALDOL] Allergy Unknown unknown Verified 10/12/20 04:33 paliperidone AdvReac Severe dystonia Verified 03/30/21 23:47 Assessment & Plan Assessment & Plan (1) Schizoaffective disorder, bipolar type: Status: Acute Code(s): F25.0 - Schizoaffective disorder, bipolar type Plan Jose is a 26 y.o. male with a history of schizoaffective disorder, bipolar type. Pt has hx of multiple previous inpatient admissions for psychotic sx, last on unit February 2022, command AH, internal preoccupation, paranoid ideations, and agitation; past hx of serious suicide attempt when psychotic. Pt presents To the emergency room after family called the police for a wellness check, with patient disorganized, wandering the streets at night, not eating in the face of medication non adherence. Patient is a limited historian. 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 He says he stopped taking medications because he did have a refill. -patient has recently been willing to restart clozapine and once titrated back to home dose returns to baseline. Patient did try to pretend he took clozapine today but admitted he did not and said he will do so going forward. Hospital course 04/28 patient remains disorganized speech and behavior, intensely internally preoccupied and having constant dialogue with himself, unaware that others observe this; denies all psychiatric symptoms including auditory hallucinations. Has been taking clozapine 04/30 patient refused clozapine dose last night 04/29; he again refused at this m orning but then reconsidered and said he would take it though when he took it, he clearly tried to remove it from his mouth however since it was disintegrating type, most of it seemed to be and just did. Later patient refused evening dose and said he does not care about being discharged, does not care about being hears for 6 months -today patient got 75 mg in the morning -nursing staff will try to offer again patient's bedtime dose, however if he continues to refuse taking it, will half the a lower dose again at some point soon 05/01 patient again initially refused clozapine but then agreed to take it; remains floridly psychotic 05/02 no change; patient refused blood draw; fiction and nonfiction writer prose discussed with pharmacy who agrees to continue medication even though he did not get blood drawn. Patient has been stable on this medication for months and has always had ANC's within normal limits; withholding this medication will only prolong and deepen his psychosis, making it all that much harder to get blood draws. Patient has a history of becoming a significant danger both to himself and others when decompensated. It is fiction and nonfiction writer prose's strong opinion at this time that the potential benefit for continuing clozapine titration far outweighs the potential risk. PLAn: CV Q 15 minute checks Increase to clozapine 150 mg q.h.s.;will use ODT at first since pt tries to check it; will titrate back to home dose of 300 mg.? Patient does not like medication in the morning ANC 04/25 6.0 ANC 05/02 refused x2; will retry I spent minutes with the patient and/or on the patient floor today, greater than?50% of which was spent counseling/coordinating care. Patient educated on: diagnosis and medication risk/benefits Informed Consent: does not understand Reason for contiued inpatient stay Substantial Risk for: inability to function
[2022-05-02] MEDS: cloZAPine ODT 25 MG TAB.RAPDIS 150 MG PO (20:22)
[2022-05-03 11:40] LABS: Neut%MD 55.3 %; Neutrophils Absolute Auto 2.9 x10*3/uL (2.0-8.3); WBCANC 5.2 X10*3/uL
[2022-05-03] MEDS: Nicotine Polacrilex 2 MG GUM 4 MG BUCCAL (12:28)
[2022-05-03] MEDS: OLANZapine ODT 10 MG TAB.RAPDIS TRANSLINGU (12:52)
--- NOTE | 2022-05-03 16:05 | P.PNPSI_ITS ---
Subjective Subjective Date of Service: 05/03/22 Reason For Visit: psych eval Interim History: Patient continued to refuse blood draw for monitoring clozapine. Staff eventually today was able to get him to agree. Patient excessively silly today, walking the halls laughing hysterically at internally supplied stimuli. Mental Status Exam Mental Status Exam Narrative: Pt is alert and oriented; behavior is disorganized, guarded and barely cooperative, today, excessively silly; patient is not in distress; dressed in casual attire with full santiago; mood fine affect either constricted or expansive; poor eye contact poor; Speech is mostly low volume; intermittent psychomotor agitation and retardation both present; thought process is goal oriented but also disorganized with thought blocking; Thought content is on undisclosed internally preoccupied thoughts; denies SI/HI. Denies AH but absorbed in responding to internal stimuli and self-dialoguing, laughing to himself, asking/answering self questions throughout the day; Patients insight and judgment impaired. Diagnostics Vital Signs (24Hr): Vital Signs - 24 hr 05/02/22 16:19 Pulse Rate 76 Respiratory Rate 18 Blood Pressure 131/76 BMI result Body Mass Index 21.0 Labs Results: 04/25/22 19:39 04/25/22 19:39 Labs: Laboratory Results - last 48 hr 05/03/22 11:33 Absolute Neuts (auto) 2.9 Medications Medications Current Medications Acetaminophen (Acetaminophen 325 Mg Tablet) 650 mg PO Q6H PRN PRN Reason: Headache/Pain Mild Scale (1-3) Al Hydroxide/Mg Hydroxide (Magnesium Hydrox/Alum Hydrox 30 Ml Oral.Susp) 30 ml PO Q6H PRN PRN Reason: Heartburn/Nausea Chlorpromazine HCl (Chlorpromazine Hcl 100 Mg Tablet) 100 mg PO QID PRN PRN Reason: agitation Clozapine (Clozapine Odt 100 Mg Tab.Rapdis) 200 mg PO BEDTIME EUGENIA Hydroxyzine HCl (Hydroxyzine Hcl 25 Mg Tablet) 25 mg PO Q6H PRN PRN Reason: Anxiety Lorazepam (Lorazepam 1 Mg Tablet) 1 mg PO QID PRN PRN Reason: agitation;may give w thorazine Magnesium Hydroxide (Milk Of Magnesia 30 Ml Oral.Susp) 30 ml PO DAILY PRN PRN Reason: Constipation Nicotine Polacrilex (Nicotine Polacrilex 2 Mg Gum) 4 mg BUCCAL Q2H PRN PRN Reason: nicotine withdrawal Last Admin: 05/03/22 12:28 Dose: 4 mg Olanzapine (Olanzapine Odt 10 Mg Tab.Rapdis) 10 mg TRANSLINGU TID PRN PRN Reason: agitation Last Admin: 05/03/22 12:52 Dose: 10 mg Quetiapine Fumarate (Quetiapine Fumarate 50 Mg Tablet) 50 mg PO Q4H PRN PRN Reason: psychosis, agitation, anxiety Trazodone HCl (Trazodone Hcl 50 Mg Tablet) 50 mg PO BEDTIME PRN PRN Reason: Insomnia Allergies Allergies Allergy/AdvReac Type Severity Reaction Status Date / Time diphenhydramine Allergy Unknown unknown Verified 10/12/20 04:33 [From BENADRYL] haloperidol [From HALDOL] Allergy Unknown unknown Verified 10/12/20 04:33 paliperidone AdvReac Severe dystonia Verified 03/30/21 23:47 Assessment & Plan Assessment & Plan (1) Schizoaffective disorder, bipolar type: Status: Acute Code(s): F25.0 - Schizoaffective disorder, bipolar type Plan Jose is a 26 y.o. male with a history of schizoaffective disorder, bipolar type. Pt has hx of multiple previous inpatient admissions for psychotic sx, last on unit February 2022, command AH, internal preoccupation, paranoid ideations, and agitation; past hx of serious suicide attempt when psychotic. Pt presents To the emergency room after family called the police for a wellness check, with patient disorganized, wandering the streets at night, not eating in the face of medication non adherence. Patient is a limited historian. He is pleasant and friendly on admission, knowing this rewriter. He says he stopped taking medications because he did have a refill. -patient has recently been willing to restart clozapine and once titrated back to home dose returns to baseline. Patient did try to pretend he took clozapine today but admitted he did not and said he will do so going forward. Hospital course 04/28 patient remains disorganized speech and behavior, intensely internally preoccupied and having constant dialogue with himself, unaware that others observe this; denies all psychiatric symptoms including auditory hallucinations. Has been taking clozapine 04/30 patient refused clozapine dose last night 04/29; he again refused at this morning but then reconsidered and said he would take it though when he took it, he clearly tried to remove it from his mouth however since it was disintegrating type, most of it seemed to be and just did. Later patient refused evening dose and said he does not care about being discharged, does not care about being hears for 6 months -today patient got 75 mg in the morning -nursing staff will try to offer again patient's bedtime dose, however if he continues to refuse taking it, will half the a lower dose again at some point soon 05/01 patient again initially refused clozapine but then agreed to take it; remains floridly psychotic 05/02 no change; patient refused blood draw; rewriter discussed with pharmacy who agrees to continue medication even though he did not get blood drawn. Patient has been stable on this medication for months and has always had ANC's within normal limits; withholding this medication will only prolong and deepen his psychosis, making it all that much harder to get blood draws. Patient has a history of becoming a significant danger both to himself and others when decompensated. It is rewriter's strong opinion at this time that the potential benefit for continuing clozapine titration far outweighs the potential risk. 05/03 patient repeatedly refused blood draw however eventually consented; he has also intermittently refuses vitals; patient refuses medications for while but then so far has eventually agreed to take nighttime medications though will try to spit them out when he thinks no one is looking. Staff keeps a close eye and general consensus is that the medication is getting ingested, however this is only happening because he is in a highly structured environment. Patient has no insight at all. Sometimes when he refuses medication, he replies that he does not care if it results in him being hospitalized for 6 months. Food And Beverage Associate and team have ongoing discussions about what is best for patient. Given the fact that he can have a very dangerous behaviors when decompensated and patient repeatedly stops taking medications soon after discharge, team is considering whether patient needs admission to a long-term facility such as [facility] where he can be stabilized on medication and remained stable for a much longer duration; the hope would be that during this prolonged period of stabilization, patient's insight would improve and he would get accustomed to being stable and maybe even prefer it, thus increasing his chances of remained stable once back in the community. Will continue to monitor, assess and discuss PLAn: CV Q 15 minute checks Increase to clozapine 200 mg q.h.s.;will use ODT at first since pt tries to check it; will titrate back to home dose of 300 mg.? Patient does not like medication in the morning ANC 04/25 6.0 ANC 05/02 refused x2; will retry ANC 05/03 2.0 I spent minutes with the patient and/or on the patient floor today, greater than?50% of which was spent counseling/coordinating care. Patient educated on: diagnosis and medication risk/benefits Informed Consent: does not understand and further education needed Reason for contiued inpatient stay Substantial Risk for: inability to function
[2022-05-03 18:00] VITALS: BP 122/68; PULSE 68; RESP 16; TEMP 36.8; O2SAT 99
[2022-05-04] MEDS: CLOZAPINE 100 MG 200 MG PO ×2 (11:21→19:24)
--- NOTE | 2022-05-04 14:15 | P.PNPSI_ITS ---
Subjective Subjective Date of Service: 05/04/22 Reason For Visit: psych eval Interim History: Patient refused his clozapine dose last night. Today he was willing to take a 1 time dose this morning to make up for it. Patient a little more friendly today; however he remains intensely internally preoccupied, self dialoguing out loud, sometimes pacing the halls sometimes lying in his bed. Patient's mother reports that at home, patient was standing in front of the door way leading to the balcony and having a back and forth, responding to auditory hallucinations and was overheard saying just jump Filipe.. just do it to which Filipe would respond no Filipe don't and then again just do it Mental Status Exam Mental Status Exam Narrative: Pt is alert and oriented; behavior is disorganized, guarded and barely cooperative, today, excessively silly; patient is not in distress; dressed in casual attire with full santiago; mood fine affect either constricted or expansive; poor eye contact poor; Speech is mostly low volume; intermittent psychomotor agitation and retardation both present; thought process is goal oriented but also disorganized with thought blocking; Thought content is on undisclosed internally preoccupied thoughts; denies SI/HI. Denies AH but absorbed in responding to internal stimuli and self-dialoguing, laughing to himself, asking/answering self questions throughout the day; Patients insight and judgment impaired. Diagnostics Vital Signs (24Hr): Vital Signs - 24 hr 05/03/22 18:00 Temperature 98.2 F Pulse Rate 68 Respiratory Rate 16 Blood Pressure 122/68 Pulse Oximetry 99 Oxygen Delivery Method Room Air BMI result Body Mass Index 21.0 Labs Results: 04/25/22 19:39 04/25/22 19:39 Labs: Laboratory Results - last 48 hr 05/03/22 11:33 Absolute Neuts (auto) 2.9 Medications Medications Current Medications Acetaminophen (Acetaminophen 325 Mg Tablet) 650 mg PO Q6H PRN PRN Reason: Headache/Pain Mild Scale (1-3) Al Hydroxide/Mg Hydroxide (Magnesium Hydrox/Alum Hydrox 30 Ml Oral.Susp) 30 ml PO Q6H PRN PRN Reason: Heartburn/Nausea Chlorpromazine HCl (Chlorpromazine Hcl 100 Mg Tablet) 100 mg PO QID PRN PRN Reason: agitation Clozapine (Clozapine Odt 100 Mg Tab.Rapdis) 200 mg PO BEDTIME EUGENIA Last Admin: 05/03/22 23:46 Dose: Not Given Hydroxyzine HCl (Hydroxyzine Hcl 25 Mg Tablet) 25 mg PO Q6H PRN PRN Reason: Anxiety Lorazepam (Lorazepam 1 Mg Tablet) 1 mg PO QID PRN PRN Reason: agitation;may give w thorazine Magnesium Hydroxide (Milk Of Magnesia 30 Ml Oral.Susp) 30 ml PO DAILY PRN PRN Reason: Constipation Nicotine Polacrilex (Nicotine Polacrilex 2 Mg Gum) 4 mg BUCCAL Q2H PRN PRN Reason: nicotine withdrawal Last Admin: 05/03/22 12:28 Dose: 4 mg Olanzapine (Olanzapine Odt 10 Mg Tab.Rapdis) 10 mg TRANSLINGU TID PRN PRN Reason: agitation Last Admin: 05/03/22 12:52 Dose: 10 mg Quetiapine Fumarate (Quetiapine Fumarate 50 Mg Tablet) 50 mg PO Q4H PRN PRN Reason: psychosis, agitation, anxiety Trazodone HCl (Trazodone Hcl 50 Mg Tablet) 50 mg PO BEDTIME PRN PRN Reason: Insomnia Allergies Allergies Allergy/AdvReac Type Severity Reaction Status Date / Time diphenhydramine Allergy Unknown unknown Verified 10/12/20 04:33 [From BENADRYL] haloperidol [From HALDOL] Allergy Unknown unknown Verified 10/12/20 04:33 paliperidone AdvReac Severe dystonia Verified 03/30/21 23:47 Assessment & Plan Assessment & Plan (1) Schizoaffective disorder, bipolar type: Status: Acute Code(s): F25.0 - Schizoaffective disorder, bipolar type Plan Jose is a 26 y.o. male with a history of schizoaffective disorder, bipolar type. Pt has hx of multiple previous inpatient admissions for psychotic sx, last on unit February 2022, command AH, internal preoccupation, paranoid ideations, and agitation; past hx of serious suicide attempt when psychotic. Pt presents To the emergency room after family called the police for a wellness check, with patient disorganized, wandering the streets at night, not eating in the face of medication non adherence. Patient is a limited historian. He is pleasant and friendly on admission, knowing this job specification writer. He says he stopped taking medications because he did have a refill. -patient has recently been willing to restart clozapine and once titrated back to home dose returns to baseline. Patient did try to pretend he took clozapine today but admitted he did not and said he will do so going forward. Hospital course 04/28 patient remains disorganized speech and behavior, intensely internally preoccupied and having constant dialogue with himself, unaware that others ob serve this; denies all psychiatric symptoms including auditory hallucinations. Has been taking clozapine 04/30 patient refused clozapine dose last night 04/29; he again refused at this morning but then reconsidered and said he would take it though when he took it, he clearly tried to remove it from his mouth however since it was disintegrating type, most of it seemed to be and just did. Later patient refused evening dose and said he does not care about being discharged, does not care about being hears for 6 months -today patient got 75 mg in the morning -nursing staff will try to offer again patient's bedtime dose, however if he continues to refuse taking it, will half the a lower dose again at some point soon 05/01 patient again initially refused clozapine but then agreed to take it; anant ins floridly psychotic 05/02 no change; patient refused blood draw; job specification writer discussed with pharmacy who agrees to continue medication even though he did not get blood drawn. Patient has been stable on this medication for months and has always had ANC's within normal limits; withholding this medication will only prolong and deepen his psychosis, making it all that much harder to get blood draws. Patient has a history of becoming a significant danger both to himself and others when decompensated. It is job specification writer's strong opinion at this time that the potential benefit for continuing clozapine titration far outweighs the potential risk. 05/03 patient repeatedly refused blood draw however eventually consented; he has also intermittently refuses vitals; patient refuses medications for while but then so far has eventually agreed to take nighttime medications though will try to spit them out when he thinks no one is looking. Staff keeps a close eye and general consensus is that the medication is getting ingested, however this is only happening because he is in a highly structured environment. Patient has no insight at all. Sometimes when he refuses medication, he replies that he does not care if it results in him being hospitalized for 6 months. Line Staker and team have ongoing discussions about what is best for patient. Given the fact that he can have a very dangerous behaviors when decompensated and patient repeatedly stops taking medications soon after discharge, team is considering whether patient needs admission to a long-term facility such as [facility] where he can be stabilized on medication and remained stable for a much longer duration; the hope would be that during this prolonged period of stabilization, patient's insight would improve and he would get accustomed to being stable and maybe even prefer it, thus increasing his chances of remained stable once back in the [facility]. Will continue to monitor, assess and discuss 05/04 again refused clozapine last night; was willing to take it today. Patient remains floridly psychotic with poor insight. -Patient's mother reports that at home, patient was standing in front of the door way leading to the balcony and having a back and forth, responding to auditory hallucinations and was overheard saying just jump Filipe.. just do it to which Filipe would respond no Filipe don't and then again just do it -patient is very inconsistent with medication, often refusing it, refusing labs, then being willing to take it; however he has no insight about his need for medication and denies all psychiatric symptoms, including auditory hallucinations or even that he talks to himself, despite that he just did so in front of job specification writer or staff. Patient's refusal to his specific medication of clozapine is very problematic since missing doses, as few as 2 days in a row makes a person increasingly vulnerable to side effects and the need to keep restarting titration, making it difficult for patient to ever reach his therapeutic dose. Patient's ongoing inconsistency to refusal with medication and associated lab work demonstrate that in patient's own mind, he is not here for treatment and job specification writer decided to revoke patients CV. Team will petition the court for involuntary commitment due to his high risk of unsafe behaviors a ssociated with his poor insight, judgment and inability to make safe healthy decisions for himself. Even at patient's baseline on therapeutic dose of clozapine, he remains internally preoccupied and without any insight into his psychiatric illness or need for medications. There remains strong consideration that patient may require long-term admission to more deeply stabilize. This was briefly discussed with patient who said I took my medication which he in fact did today; however patient is unable to understand that he constantly refuses it or admit that he tries to cheek it. PLAn: CV-revovked Will petition the court for involuntary commitment and substituted judgment Q 15 minute checks Increase to clozapine 200 mg q.h.s.;will use ODT at first since pt tries to check it; will titrate back to home dose of 300 mg.? Patient does not like medication in the morning ANC 10/ 6.0 ANC 05/02 refused x2; will retry ANC 05/03 2.0 I spent minutes with the patient and/or on the patient floor today, greater than?50% of which was spent counseling/coordinating care. Patient educated on: diagnosis and medication risk/benefits Informed Consent: understands Reason for contiued inpatient stay Substantial Risk for: inability to function
[2022-05-04 15:44] VITALS: RESP 16
[2022-05-04] MEDS: Nicotine Polacrilex 2 MG GUM 4 MG BUCCAL (18:03)
--- NOTE | 2022-05-05 09:39 | HO.PSYCHPN ---
Subjective Subjective Date of Service: 05/05/22 Reason For Visit: psych eval Interim History: a little more conversant today, says he's doing alright. He is out of room more, in the hallway, pacing more. Still disorganized in speech and behavior, internally preoccupied, self-dialoguing, laughing out loud to internal stimuli Mental Status Exam Mental Status Exam Narrative: Pt is alert and oriented; behavior is disorganized, guarded and barely cooperative, today, excessively silly; patient is not in distress; dressed in casual attire with full santiago; mood fine affect either constricted or expansive; poor eye contact poor; Speech is mostly low volume; intermittent psychomotor agitation and retardation both present; thought process is goal oriented but also disorganized with thought blocking; Thought content is on undisclosed internally preoccupied thoughts; denies SI/HI. Denies AH but absorbed in responding to internal stimuli and self-dialoguing, laughing to himself, asking/answering self questions throughout the day; Patients insight and judgment impaired. Diagnostics Vital Signs (24Hr): Vital Signs - 24 hr 05/04/22 15:44 Respiratory Rate 16 BMI result Body Mass Index 21.0 Labs Results: 04/25/22 19:39 04/25/22 19:39 Labs: Laboratory Results - last 48 hr 05/03/22 11:33 Absolute Neuts (auto) 2.9 Medications Medications Current Medications Acetaminophen (Acetaminophen 325 Mg Tablet) 650 mg PO Q6H PRN PRN Reason: Headache/Pain Mild Scale (1-3) Al Hydroxide/Mg Hydroxide (Magnesium Hydrox/Alum Hydrox 30 Ml Oral.Susp) 30 ml PO Q6H PRN PRN Reason: Heartburn/Nausea Chlorpromazine HCl (Chlorpromazine Hcl 100 Mg Tablet) 100 mg PO QID PRN PRN Reason: agitation Clozapine (Clozapine Odt 100 Mg Tab.Rapdis) 200 mg PO BEDTIME EUGENIA Last Admin: 05/04/22 19:24 Dose: 200 mg Hydroxyzine HCl (Hydroxyzine Hcl 25 Mg Tablet) 25 mg PO Q6H PRN PRN Reason: Anxiety Lorazepam (Lorazepam 1 Mg Tablet) 1 mg PO QID PRN PRN Reason: agitation;may give w thorazine Magnesium Hydroxide (Milk Of Magnesia 30 Ml Oral.Susp) 30 ml PO DAILY PRN PRN Reason: Constipation Nicotine Polacrilex (Nicotine Polacrilex 2 Mg Gum) 4 mg BUCCAL Q2H PRN PRN Reason: nicotine withdrawal Last Admin: 05/04/22 18:03 Dose: 4 mg Olanzapine (Olanzapine Odt 10 Mg Tab.Rapdis) 10 mg TRANSLINGU TID PRN PRN Reason: agitation Last Admin: 05/03/22 12:52 Dose: 10 mg Quetiapine Fumarate (Quetiapine Fumarate 50 Mg Tablet) 50 mg PO Q4H PRN PRN Reason: psychosis, agitation, anxiety Trazodone HCl (Trazodone Hcl 50 Mg Tablet) 50 mg PO BEDTIME PRN PRN Reason: Insomnia Allergies Allergies Allergy/AdvReac Type Severity Reaction Status Date / Time diphenhydramine Allergy Unknown unknown Verified 10/12/20 04:33 [From BENADRYL] haloperidol [From HALDOL] Allergy Unknown unknown Verified 10/12/20 04:33 paliperidone AdvReac Severe dystonia Verified 03/30/21 23:47 Assessment & Plan Assessment & Plan (1) Schizoaffective disorder, bipolar type: Status: Acute Code(s): F25.0 - Schizoaffective disorder, bipolar type Plan Jose is a 26 y.o. male with a history of schizoaffective disorder, bipolar type. Pt has hx of multiple previous inpatient admissions for psychotic sx, last on unit February 2022, command AH, internal preoccupation, paranoid ideations, and agitation; past hx of serious suicide attempt when psychotic. Pt presents To the emergency room after family called the police for a wellness check, with patient disorganized, wandering the streets at night, not eating in the face of medication non adherence. Patient is a limited historian. He is pleasant and friendly on admission, knowing this hand sign writer. He says he stopped taking medications because he did have a refill. -patient has recently been willing to restart clozapine and once titrated back to home dose returns to baseline. Patient did try to pretend he took clozapine today but admitted he did not and said he will do so going forward. Hospital course 04/28 patient remains disorganized speech and behavior, intensely internally preoccupied and having constant dialogue with himself, unaware that others observe this; denies all psychiatric symptoms including auditory hallucinations. Has been taking clozapine 04/30 patient refused clozapine dose last night 04/29; he again refused at this morning but then reconsidered and said he would take it though when he took it, he clearly tried to remove it from his mouth however since it was disintegrating type, most of it seemed to be and just did. Later patient refused evening dose and said he does not care about being discharged, does not care about being hears for 6 months -today patient got 75 mg in the morning -nursing staff will try to offer again patient's bedtime dose, however if he continues to refuse taking it, will half the a lower dose again at some point soon 05/01 patient again initially refused clozapine but then agreed to take it; remains floridly psychotic 05/02 no change; patient refused blood draw; hand sign writer discussed with pharmacy who agrees to continue medication even though he did not get blood drawn. Patient has been stable on this medication for months and has always had ANC's within normal limits; withholding this medication will only prolong and deepen his psychosis, making it all that much harder to get blood draws. Patient has a history of becoming a significant danger both to himself and others when decompensated. It is hand sign writer's strong opinion at this time that the potential benefit for continuing clozapine titration far outweighs the potential risk. 05/03 patient repeatedly refused blood draw however eventually consented; he has also intermittently refuses vitals; patient refuses medications for while but then so far has eventually agreed to take nighttime medications though will try to spit them out when he thinks no one is looking. Staff keeps a close eye and general consensus is that the medication is getting ingested, however this is only happening because he is in a highly structured environment. Patient has no insight at all. Sometimes when he refuses medication, he replies that he does not care if it results in him being hospitalized for 6 months. Consulting Psychologist and team have ongoing discussions about what is best for patient. Given the fact that he can have a very dangerous behaviors when decompensated and patient repeatedly stops taking medications soon after discharge, team is considering whether patient needs admission to a long-term facility such as [facility] where he can be stabilized on medication and remained stable for a much longer duration; the hope would be that during this prolonged period of stabilization, patient's insight would improve and he would get accustomed to being stable and maybe even prefer it, thus increasing his chances of remained stable once back in the community. Will continue to monitor, assess and discuss 05/04 again refused clozapine last night; was willing to take it today. Patient remains floridly psychotic with poor insight. -Patient's mother reports that at home, patient was standing in front of the door way leading to the balcony and having a back and forth, responding to auditory hallucinations and was overheard saying just jump Filipe.. just do it to which Filipe would respond no Filipe don't and then again just do it -patient is very inconsistent with medication, often refusing it, refusing labs, then being willing to take it; however he has no insight about his need for medication and denies all psychiatric symptoms, including auditory hallucinations or even that he talks to himself, despite that he just did so in front of hand sign writer or staff. Patient's refusal to his specific medication of clozapine is very problematic since missing doses, as few as 2 days in a row makes a person increasingly vulnerable to side effects and the need to keep restarting titration, making it difficult for patient to ever reach his therapeutic dose. Patient's ongoing inconsistency to refusal with medication and associated lab work demonstrate that in patient's own mind, he is not here for treatment and hand sign writer decided to revoke patients CV. Team will petition the court for involuntary commitment due to his high risk of unsafe behaviors associated with his poor insight, judgment and inability to make safe healthy decisions for himself. Even at patient's baseline on therapeutic dose of clozapine, he remains internally preoccupied and without any insight into his psychiatric illness or need for medications. There remains strong consideration that patient may require long-term admission to more deeply stabilize. This was briefly discussed with patient who said I took my medication which he in fact did today; however patient is unable to understand that he constantly refuses it or admit that he tries to cheek it. PLAn: CV-revovked Will petition the court for involuntary commitment and substituted judgment Q 15 minute checks Increase to clozapine 200 mg q.h.s.;will use ODT at first since pt tries to check it; will titrate back to home dose of 300 mg.? Patient does not like medication in the morning ANC 04/25 6.0 ANC 05/02 refused x2; will retry ANC 05/03 2.0 I spent minutes with the patient and/or on the patient floor today, greater than?50% of which was spent counseling/coordinating care. Patient educated on: diagnosis and medication risk/benefits Informed Consent: understands and does not understand Reason for contiued inpatient stay Substantial Risk for: inability to function
[2022-05-05 18:00] VITALS: RESP 18
[2022-05-05] MEDS: Nicotine Polacrilex 2 MG GUM 4 MG BUCCAL ×2 (18:18→22:20)
[2022-05-05] MEDS: CLOZAPINE 100 MG 200 MG PO (18:41)
[2022-05-06] MEDS: Nicotine Polacrilex 2 MG GUM 4 MG BUCCAL ×4 (13:27→18:57)
[2022-05-06 15:40] VITALS: RESP 16
--- NOTE | 2022-05-06 16:17 | P.PNPSI_ITS ---
Subjective Subjective Date of Service: 05/06/22 Reason For Visit: psych eval Interim History: Chart reviewed. Discussed with Nursing. Has been taking Clozaril. Spending a lot of time in his room. Internally preoccupied. Patient would not engage with commercial lines underwriter today. Medication Compliance: Yes Side effects from medications: No Attending Groups: No Review of Systems Acute medical concerns: No Review of Systems Review of Systems Yes Unobtainable due to mental status Mental Status Exam Mental Status Exam Narrative: Appropriately dressed. Fair hygiene. Internally preoccupied. Would not engage in interview with commercial lines underwriter. Diagnostics Vital Signs (24Hr): Vital Signs - 24 hr 05/05/22 18:00 05/06/22 15:40 Respiratory Rate 18 16 BMI result Body Mass Index 21.0 Labs Results: 04/25/22 19:39 04/25/22 19:39 Medications Medications Current Medications Acetaminophen (Acetaminophen 325 Mg Tablet) 650 mg PO Q6H PRN PRN Reason: Headache/Pain Mild Scale (1-3) Al Hydroxide/Mg Hydroxide (Magnesium Hydrox/Alum Hydrox 30 Ml Oral.Susp) 30 ml PO Q6H PRN PRN Reason: Heartburn/Nausea Chlorpromazine HCl (Chlorpromazine Hcl 100 Mg Tablet) 100 mg PO QID PRN PRN Reason: agitation Clozapine (Clozapine Odt 100 Mg Tab.Rapdis) 225 mg PO BEDTIME EUGENIA Hydroxyzine HCl (Hydroxyzine Hcl 25 Mg Tablet) 25 mg PO Q6H PRN PRN Reason: Anxiety Lorazepam (Lorazepam 1 Mg Tablet) 1 mg PO QID PRN PRN Reason: agitation;may give w thorazine Magnesium Hydroxide (Milk Of Magnesia 30 Ml Oral.Susp) 30 ml PO DAILY PRN PRN Reason: Constipation Nicotine Polacrilex (Nicotine Polacrilex 2 Mg Gum) 4 mg BUCCAL Q2H PRN PRN Reason: nicotine withdrawal Last Admin: 05/06/22 13:27 Dose: 4 mg Olanzapine (Olanzapine Odt 10 Mg Tab.Rapdis) 10 mg TRANSLINGU TID PRN PRN Reason: agitation Last Admin: 05/03/22 12:52 Dose: 10 mg Quetiapine Fumarate (Quetiapine Fumarate 50 Mg Tablet) 50 mg PO Q4H PRN PRN Reason: psychosis, agitation, anxiety Trazodone HCl (Trazodone Hcl 50 Mg Tablet) 50 mg PO BEDTIME PRN PRN Reason: Insomnia Allergies Allergies Allergy/AdvReac Type Severity Reaction Status Date / Time diphenhydramine Allergy Unknown unknown Verified 10/12/20 04:33 [From BENADRYL] haloperidol [From HALDOL] Allergy Unknown unknown Verified 10/12/20 04:33 paliperidone AdvReac Severe dystonia Verified 03/30/21 23:47 Assessment & Plan Assessment & Plan (1) Schizoaffective disorder, bipolar type: Status: Acute Code(s): F25.0 - Schizoaffective disorder, bipolar type Plan Jose is a 26 y.o. male with a history of schizoaffective disorder, bipolar type. Pt has hx of multiple previous inpatient admissions for psychotic sx, last on unit February 2022, command AH, internal preoccupation, paranoid ideations, and agitation; past hx of serious suicide attempt when psychotic. Pt presents To the emergency room after family called the police for a wellness check, with patient disorganized, wandering the streets at night, not eating in the face of medication non adherence. Patient is a limited historian. He is pleasant and friendly on admission, knowing this commercial lines underwriter. He says he stopped taking medications because he did have a refill. -patient has recently been willing to restart clozapine and once titrated back to home dose returns to baseline. Patient did try to pretend he took clozapine today but admitted he did not and said he will do so going forward. Hospital course 04/28 patient remains disorganized speech and behavior, intensely internally preoccupied and having constant dialogue with himself, unaware that others observe this; denies all psychiatric symptoms including auditory hallucinations. Has been taking clozapine 04/30 patient refused clozapine dose last night 04/29; he again refused at this morning but then reconsidered and said he would take it though when he took it, he clearly tried to remove it from his mouth however since it was disintegrating type, most of it seemed to be and just did. Later patient refused evening dose and said he does not care about being discharged, does not care about being hears for 6 months -today patient got 75 mg in the morning -nursing staff will try to offer again patient's bedtime dose, however if he continues to refuse taking it, will half the a lower dose again at some point soon 05/01 patient again initially refused clozapine but then agreed to take it; remains floridly psychotic 05/02 no change; patient refused blood draw; commercial lines underwriter discussed with pharmacy who agrees to continue medication even though he did not get blood drawn. Patient has been stable on this medication for months and has always had ANC's within normal limits; withholding this medication will only prolong and deepen his psychosis, making it all that much harder to get blood draws. Patient has a history of becoming a significant danger both to himself and others when decompensated. It is commercial lines underwriter's strong opinion at this time that the potential benefit for continuing clozapine titration far outweighs the potential risk. 05/03 patient repeatedly refused blood draw however eventually consented; he has also intermittently refuses vitals; patient refuses medications for while but then so far has eventually agreed to take nighttime medications though will try to spit them out when he thinks no one is looking. Staff keeps a close eye and general consensus is that the medication is getting ingested, however this is only happening because he is in a highly structured environment. Patient has no insight at all. Sometimes when he refuses medication, he replies that he does not care if it results in him being hospitalized for 6 months. Drug And Alcohol Counselor and team have ongoing discussions about what is best for patient. Given the fact that he can have a very dangerous behaviors when decompensated and patient repeatedly stops taking medications soon after discharge, team is considering whether patient needs admission to a long-term facility such as [facility] where he can be stabilized on medication and remained stable for a much longer duration; the hope would be that during this prolonged period of stabilization, patient's insight would improve and he would get accustomed to being stable and maybe even prefer it, thus increasing his chances of remained stable once back in the community. Will continue to monitor, assess and discuss 05/04 again refused clozapine last night; was willing to take it today. Patient remains floridly psychotic with poor insight. -Patient's mother reports that at home, patient was standing in front of the door way leading to the balcony and having a back and forth, responding to auditory hallucinations and was overheard saying just jump Filipe.. just do it to which Filipe would respond no Filipe don't and then again just do it -patient is very inconsistent with medication, often refusing it, refusing labs, then being willing to take it; however he has no insight about his need for medication and denies all psychiatric symptoms, including auditory hallucinations or even that he talks to himself, despite that he just did so in front of commercial lines underwriter or staff. Patient's refusal to his specific medication of clozapine is very problematic since missing doses, as few as 2 days in a row makes a person increasingly vulnerable to side effects and the need to keep restarting titration, making it difficult for patient to ever reach his therapeutic dose. Patient's ongoing inconsistency to refusal with medication and associated lab work demonstrate that in patient's own mind, he is not here for treatment and commercial lines underwriter decided to revoke patients CV. Team will petition the court for involuntary commitment due to his high risk of unsafe behaviors associated with his poor insight, judgment and inability to make safe healthy decisions for himself. Even at patient's baseline on therapeutic dose of cloz apine, he remains internally preoccupied and without any insight into his psychiatric illness or need for medications. There remains strong consideration that patient may require long-term admission to more deeply stabilize. This was briefly discussed with patient who said I took my medication which he in fact did today; however patient is unable to understand that he constantly refuses it or admit that he tries to cheek it. 05/06/2022: No changes to current regimen the continue Clozaril as per treatment team PLAn: CV-revovked Will petition the court for involuntary commitment and substituted judgment Q 15 minute checks Increase to clozapine 200 mg q.h.s.;will use ODT at first since pt tries to check it; will titrate back to home dose of 300 mg.? Patient does not like medication in the morning ANC 04/25 6.0 ANC 05/02 refused x2; will retry ANC 05/03 2.0 I spent minutes with the patient and/or on the patient floor today, greater than?50% of which was spent counseling/coordinating care. Reason for contiued inpatient stay Substantial Risk for: inability to function
[2022-05-06] MEDS: CLOZAPINE 100 MG 200 MG PO (18:57)
[2022-05-06] MEDS: cloZAPine ODT 25 MG TAB.RAPDIS PO (18:57)
[2022-05-07 06:00] VITALS: BP 105/61; PULSE 88; RESP 18; TEMP 36.6; O2SAT 99
[2022-05-07] MEDS: Nicotine Polacrilex 2 MG GUM 4 MG BUCCAL ×4 (09:49→18:43)
--- NOTE | 2022-05-07 13:11 | P.PNPSI_ITS ---
Subjective Subjective Date of Service: 05/07/22 Reason For Visit: psych eval Interim History: Chart reviewed. Discussed with Nursing. Has been taking Clozaril 225mg. Is spending some time out of his room. It clearly internally preoccupied and laughing to himself. When discuss medications states that he does not particularly want to take Clozaril as he does not get high from this like drugs and also feels at times. Reports liking the taste because it is like candy. Denied depression SI or HI. Medication Compliance: Yes Side effects from medications: No Attending Groups: No Review of Systems Acute medical concerns: No Review of Systems Review of Systems Nothing acute Mental Status Exam Mental Status Exam Narrative: Appropriately dressed. Fair hygiene. Internally preoccupied. Appears slightly elated. No SI HI. Insight and judgment limited Diagnostics Vital Signs (24Hr): Vital Signs - 24 hr 05/06/22 15:40 05/07/22 06:00 Temperature 97.9 F Pulse Rate 88 Respiratory Rate 16 18 Blood Pressure 105/61 Pulse Oximetry 99 Oxygen Delivery Method Room Air BMI result Body Mass Index 21.0 Labs Results: 04/25/22 19:39 04/25/22 19:39 Medications Medications Current Medications Acetaminophen (Acetaminophen 325 Mg Tablet) 650 mg PO Q6H PRN PRN Reason: Headache/Pain Mild Scale (1-3) Al Hydroxide/Mg Hydroxide (Magnesium Hydrox/Alum Hydrox 30 Ml Oral.Susp) 30 ml PO Q6H PRN PRN Reason: Heartburn/Nausea Chlorpromazine HCl (Chlorpromazine Hcl 100 Mg Tablet) 100 mg PO QID PRN PRN Reason: agitation Clozapine (Clozapine Odt 100 Mg Tab.Rapdis) 200 mg PO BEDTIME EUGENIA Last Admin: 05/06/22 18:57 Dose: 200 mg Clozapine (Clozapine Odt 25 Mg Tab.Rapdis) 25 mg PO BEDTIME EUGENIA Last Admin: 05/06/22 18:57 Dose: 25 mg Hydroxyzine HCl (Hydroxyzine Hcl 25 Mg Tablet) 25 mg PO Q6H PRN PRN Reason: Anxiety Lorazepam (Lorazepam 1 Mg Tablet) 1 mg PO QID PRN PRN Reason: agitation;may give w thorazine Magnesium Hydroxide (Milk Of Magnesia 30 Ml Oral.Susp) 30 ml PO DAILY PRN PRN Reason: Constipation Nicotine Polacrilex (Nicotine Polacrilex 2 Mg Gum) 4 mg BUCCAL Q2H PRN PRN Reason: nicotine withdrawal Last Admin: 05/07/22 09:49 Dose: 4 mg Olanzapine (Olanzapine Odt 10 Mg Tab.Rapdis) 10 mg TRANSLINGU TID PRN PRN Reason: agitation Last Admin: 05/03/22 12:52 Dose: 10 mg Quetiapine Fumarate (Quetiapine Fumarate 50 Mg Tablet) 50 mg PO Q4H PRN PRN Reason: psychosis, agitation, anxiety Trazodone HCl (Trazodone Hcl 50 Mg Tablet) 50 mg PO BEDTIME PRN PRN Reason: Insomnia Allergies Allergies Allergy/AdvReac Type Severity Reaction Status Date / Time diphenhydramine Allergy Unknown unknown Verified 10/12/20 04:33 [From BENADRYL] haloperidol [From HALDOL] Allergy Unknown unknown Verified 10/12/20 04:33 paliperidone AdvReac Severe dystonia Verified 03/30/21 23:47 Assessment & Plan Assessment & Plan (1) Schizoaffective disorder, bipolar type: Status: Acute Code(s): F25.0 - Schizoaffective disorder, bipolar type Plan Jose is a 26 y.o. male with a history of schizoaffective disorder, bipolar type. Pt has hx of multiple previous inpatient admissions for psychotic sx, last on unit February 2022, command AH, internal preoccupation, paranoid ideations, and agitation; past hx of serious suicide attempt when psychotic. Pt presents To the emergency room after family called the police for a wellness check, with patient disorganized, wandering the streets at night, not eating in the face of medication non adherence. Patient is a limited historian. He is pleasant and friendly on admission, knowing this internal communications writer. He says he stopped taking medications because he did have a refill. -patient has recently been willing to restart clozapine and once titrated back to home dose returns to baseline. Patient did try to pretend he took clozapine today but admitted he did not and said he will do so going forward. Hospital course 04/28 patient remains disorganized speech and behavior, intensely internally preoccupied and having constant dialogue with himself, unaware that others observe this; denies all psychiatric symptoms including auditory hallucinations. Has been taking clozapine 04/30 patient refused clozapine dose last night 04/29; he again refused at this morning but then reconsidered and said he would take it though when he took it, he clearly tried to remove it from his mouth however since it was disintegrating type, most of it seemed to be and just did. Later patient refused evening dose and said he does not care about being discharged, does not care about being hears for 6 months -today patient got 75 mg in the morning -nursing staff will try to offer again patient's bedtime dose, however if he continues to refuse taking it, will half the a lower dose again at some point soon 05/01 patient again initially refused clozapine but then agreed to take it; remains floridly psychotic 05/02 no change; patient refused blood draw; internal communications writer discussed with pharmacy who agrees to continue medication even though he did not get blood drawn. Patient has been stable on this medication for months and has always had ANC's within normal limits; withholding this medication will only prolong and deepen his psychosis, making it all that much harder to get blood draws. Patient has a history of becoming a significant danger both to himself and others when decompensated. It is internal communications writer's strong opinion at this time that the potential benefit for continuing clozapine titration far outweighs the potential risk. 05/03 patient repeatedly refused blood draw however eventually consented; he has also intermittently refuses vitals; patient refuses medications for while but then so far has eventually agreed to take nighttime medications though will try to spit them out when he thinks no one is looking. Staff keeps a close eye and general consensus is that the medication is getting ingested, however this is only happening because he is in a highly structured environment. Patient has no insight at all. Sometimes when he refuses medication, he replies that he does not care if it results in him being hospitalized for 6 months. Ruling Machine Set Up Operator and team have ongoing discussions about what is best for patient. Given the fact that he can have a very dangerous behaviors when decompensated and patient repeatedly stops taking medications soon after discharge, team is considering whether patient needs admission to a long-term facility such as [facility] where he can be stabilized on medication and remained stable for a much longer duration; the hope would be that during this prolonged period of stabilization, patient's insight would improve and he would get accustomed to being stable and maybe even prefer it, thus increasing his chances of remained stable once back in the community. Will continue to monitor, assess and discuss 05/04 again refused clozapine last night; was willing to take it today. Patient remains floridly psychotic with poor insight. -Patient's mother reports that at home, patient was standing in front of the door way leading to the balcony and having a back and forth, responding to auditory hallucinations and was overheard saying just jump Filipe.. just do it to which Filipe would respond no Filipe don't and then again just do it -patient is very inconsistent with medication, often refusing it, refusing labs, then being willing to take it; however he has no insight about his need for medication and denies all psychiatric symptoms, including auditory h allucinations or even that he talks to himself, despite that he just did so in front of internal communications writer or staff. Patient's refusal to his specific medication of clozapine is very problematic since missing doses, as few as 2 days in a row makes a person increasingly vulnerable to side effects and the need to keep restarting titration, making it difficult for patient to ever reach his therapeutic dose. Patient's ongoing inconsistency to refusal with medication and associated lab work demonstrate that in patient's own mind, he is not here for treatment and internal communications writer decided to revoke patients CV. Team will petition the court for involuntary commitment due to his high risk of unsafe behaviors associated with his poor insight, judgment and inability to make safe healthy decisions for himself. Even at patient's baseline on therapeutic dose of clozapine, he remains internally preoccupied and without any insight into his psychiatric illness or need for medications. There remains strong consideration that patient may require long-term admission to more deeply stabilize. This was briefly discussed with patient who said I took my medication which he in fact did today; however patient is unable to understand that he constantly refuses it or admit that he tries to cheek it. 05/07/2022: No changes to current regimen the continue Clozaril as per treatment team PLAn: CV-revovked Will petition the court for involuntary commitment and substituted judgment Q 15 minute checks Increase to clozapine 200 mg q.h.s.;will use ODT at first since pt tries to check it; will titrate back to home dose of 300 mg.? Patient does not like medication in the morning ANC 04/25 6.0 ANC 05/02 refused x2; will retry ANC 05/03 2.0 I spent minutes with the patient and/or on the patient floor today, greater than?50% of which was spent counseling/coordinating care. Reason for contiued inpatient stay Substantial Risk for: inability to function and rapid decompensation
[2022-05-07 16:04] VITALS: BP 128/75; PULSE 80
[2022-05-07] MEDS: cloZAPine ODT 25 MG TAB.RAPDIS PO (18:42)
[2022-05-07] MEDS: CLOZAPINE 100 MG 200 MG PO (18:42)
--- NOTE | 2022-05-08 08:30 | HO.PSYCHPN ---
Subjective Subjective Date of Service: 05/08/22 Reason For Visit: psych eval Interim History: Patient is much more psychomotor early agitated, out in the hallway, self dialoguing out loud, laughing hysterically, very loudly to himself at internal stimuli. Patient were paper bag over his head; patient cramped himself in between his bed and the wall. He remains without any insight at all and denies all psychiatric symptoms including AVH; if patient is asked about his intense conversations with himself he denies that this is happening at all; however as soon as this interaction is done, he goes back to self dialoguing. Remains difficult with which to engage and only tolerates a hello from insurance writer, not willing to talk more, walking away on attempts. Mental Status Exam Mental Status Exam Narrative: Pt is alert and oriented; behavior is disorganized, guarded and barely cooperative; excessively silly, laughing hysterically out loud in milue at internal stimuli; patient is not in distress; dressed in casual attire, shaved; mood good affect either constricted or expansive; poor eye contact poor; Speech is mostly loud volume; increased psychomotor agitation; some retardation also intermittently present; thought process is goal oriented when wants something specific, but otherwise, disorganized with thought blocking; Thought content is on undisclosed internally preoccupied thoughts; denies SI/HI. Denies AH but is absorbed in responding to internal stimuli and self-dialoguing, laughing to himself, asking/answering self questions throughout the day; Patients insight and judgment impaired. Diagnostics Vital Signs (24Hr): Vital Signs - 24 hr 05/07/22 16:04 Pulse Rate 80 Blood Pressure 128/75 BMI result Body Mass Index 21.0 Labs Results: 04/25/22 19:39 04/25/22 19:39 Medications Medications Current Medications Acetaminophen (Acetaminophen 325 Mg Tablet) 650 mg PO Q6H PRN PRN Reason: Headache/Pain Mild Scale (1-3) Al Hydroxide/Mg Hydroxide (Magnesium Hydrox/Alum Hydrox 30 Ml Oral.Susp) 30 ml PO Q6H PRN PRN Reason: Heartburn/Nausea Chlorpromazine HCl (Chlorpromazine Hcl 100 Mg Tablet) 100 mg PO QID PRN PRN Reason: agitation Clozapine (Clozapine Odt 100 Mg Tab.Rapdis) 250 mg PO BEDTIME EUGENIA Hydroxyzine HCl (Hydroxyzine Hcl 25 Mg Tablet) 25 mg PO Q6H PRN PRN Reason: Anxiety Lorazepam (Lorazepam 1 Mg Tablet) 1 mg PO QID PRN PRN Reason: agitation;may give w thorazine Magnesium Hydroxide (Milk Of Magnesia 30 Ml Oral.Susp) 30 ml PO DAILY PRN PRN Reason: Constipation Nicotine Polacrilex (Nicotine Polacrilex 2 Mg Gum) 4 mg BUCCAL Q2H PRN PRN Reason: nicotine withdrawal Last Admin: 05/07/22 18:43 Dose: 4 mg Olanzapine (Olanzapine Odt 10 Mg Tab.Rapdis) 10 mg TRANSLINGU TID PRN PRN Reason: agitation Last Admin: 05/03/22 12:52 Dose: 10 mg Quetiapine Fumarate (Quetiapine Fumarate 50 Mg Tablet) 50 mg PO Q4H PRN PRN Reason: psychosis, agitation, anxiety Trazodone HCl (Trazodone Hcl 50 Mg Tablet) 50 mg PO BEDTIME PRN PRN Reason: Insomnia Allergies Allergies Allergy/AdvReac Type Severity Reaction Status Date / Time diphenhydramine Allergy Unknown unknown Verified 10/12/20 04:33 [From BENADRYL] haloperidol [From HALDOL] Allergy Unknown unknown Verified 10/12/20 04:33 paliperidone AdvReac Severe dystonia Verified 03/30/21 23:47 Assessment & Plan Assessment & Plan (1) Schizoaffective disorder, bipolar type: Status: Acute Code(s): F25.0 - Schizoaffective disorder, bipolar type Plan Jose is a 26 y.o. male with a history of schizoaffective disorder, bipolar type. Pt has hx of multiple previous inpatient admissions for psychotic sx, last on unit February 2022, command AH, internal preoccupation, paranoid ideations, and agitation; past hx of serious suicide attempt when psychotic. Pt presents To the emergency room after family called the police for a wellness check, with patient disorganized, wandering the streets at night, not eating in the face of medication non adherence. Patient is a limited historian. He is pleasant and friendly on admission, knowing this insurance writer. He says he stopped taking medications because he did have a refill. -patient has recently been willing to restart clozapine and once titrated back to home dose returns to baseline. Patient did try to pretend he took clozapine today but admitted he did not and said he will do so going forward. Hospital course 04/28 patient remains disorganized speech and behavior, intensely internally preoccupied and having constant dialogue with himself, unaware that others observe this; denies all psychiatric symptoms including auditory hallucinations. Has been taking clozapine 04/30 patient refused clozapine dose last night 04/29; he again refused at this morning but then reconsidered and said he would take it though when he took it, he clearly tried to remove it from his mouth however since it was disintegrating type, most of it seemed to be and just did. Later patient refused evening dose and said he does not care about being discharged, does not care about being hears for 6 months -today patient got 75 mg in the morning -nursing staff will try to offer again patient's bedtime dose, however if he continues to refuse taking it, will half the a lower dose again at some point soon 05/01 patient again initially refused clozapine but then agreed to take it; remains floridly psychotic 05/02 no change; patient refused blood draw; insurance writer discussed with pharmacy who agrees to continue medication even though he did not get blood drawn. Patient has been stable on this medication for months and has always had ANC's within normal limits; withholding this medication will only prolong and deepen his psychosis, making it all that much harder to get blood draws. Patient has a history of becoming a significant danger both to himself and others when decompensated. It is insurance writer's strong opinion at this time that the potential benefit for continuing clozapine titration far outweighs the potential risk. 05/03 patient repeatedly refused blood draw however eventually consented; he has also intermittently refuses vitals; patient refuses medications for while but then so far has eventually agreed to take nighttime medications though will try to spit them out when he thinks no one is looking. Staff keeps a close eye and general consensus is that the medication is getting ingested, however this is only happening because he is in a highly structured environment. Patient has no insight at all. Sometimes when he refuses medication, he replies that he does not care if it results in him being hospitalized for 6 months. Fire Prevention Research Engineer and team have ongoing discussions about what is best for patient. Given the fact that he can have a very dangerous behaviors when decompensated and patient repeatedly stops taking medications soon after discharge, team is considering whether patient needs admission to a long-term facility such as [facility] where he can be stabilized on medication and remained stable for a much longer duration; the hope would be that during this prolonged period of stabilization, patient's insight would improve and he would get accustomed to being stable and maybe even prefer it, thus increasing his chances of remained stable once back in the community. Will continue to monitor, assess and discuss 05/04 again refused clozapine last night; was willing to take it today. Patient remains floridly psychotic with poor insight. -Patient's mother reports that at home, patient was standing in front of the door way leading to the balcony and having a back and forth, responding to auditory hallucinations and was overheard saying just jump Filipe.. just do it to which Filipe would respond no Filipe don't and then again just do it -patient is very inconsistent with medication, often refusing it, refusing labs, then being willing to take it; however he has no insight about his need for medication and denies all psychiatric symptoms, including auditory hallucinations or even that he talks to himself, despite that he just did so in front of insurance writer or staff. Patient's refusal to his specific medication of clozapine is very problematic since missing doses, as few as 2 days in a row makes a person increasingly vulnerable to side effects and the need to keep restarting titration, making it difficult for patient to ever reach his therapeutic dose. Patient's ongoing inconsistency to refusal with medication and associated lab work demonstrate that in patient's own mind, he is not here for treatment and insurance writer decided to revoke patients CV. Team will petition the court for involuntary commitment due to his high risk of unsafe behaviors associated with his poor insight, judgment and inability to make safe healthy decisions for himself. Even at patient's baseline on therapeutic dose of clozapine, he remains internally preoccupied and without any insight into his psychiatric illness or need for medications. There remains strong consideration that patient may require long-term admission to more deeply stabilize. This was briefly discussed with patient who said I took my medication which he in fact did today; however patient is unable to understand that he constantly refuses it or admit that he tries to cheek it. 05/07/2022: No changes to current regimen the continue Clozaril as per treatment team 05/08 floridly manic and psychotic; increased psychomotor agitation, more in the milieu with disorganized behaviors -often patient starts to stabilize when reaching current clozapine dose, however no improvement thus far PLAn: CV-revovked Will petition the court for involuntary commitment and substituted judgment Q 15 minute checks Increase to clozapine 275mg mg q.h.s.;will use ODT at first since pt tries to check it; will titrate back to home dose of 300 mg.? Patient does not like medication in the morning -will order clozapine level ANC 04/25 6.0 ANC 05/02 refused x2; will retry ANC 05/03 2.0 I spent minutes with the patient and/or on the patient floor today, greater than?50% of which was spent counseling/coordinating care. Patient educated on: diagnosis Informed Consent: does not understand Reason for contiued inpatient stay Substantial Risk for: inability to function
[2022-05-08] MEDS: Nicotine Polacrilex 2 MG GUM 4 MG BUCCAL ×2 (12:32→17:55)
[2022-05-08] MEDS: CLOZAPINE 100 MG 250 MG PO (18:19)
[2022-05-09] MEDS: Nicotine Polacrilex 2 MG GUM 4 MG BUCCAL (12:40)
[2022-05-09 14:41] LABS: Neut%MD 52.2 %; WBCANC 5.7 X10*3/uL
[2022-05-09] MEDS: OLANZapine ODT 10 MG TAB.RAPDIS TRANSLINGU (14:48)
--- NOTE | 2022-05-09 17:00 | P.PNPSI_ITS ---
Subjective Subjective Date of Service: 05/09/22 Reason For Visit: psych eval Interim History: floridly manic; disorganized in the milieu, pacing the halls laughing very loudly to himself; refused to meet with his installer technician today saying he does not trust him; patient was found underneath his mattress saying he was hiding from the installer technician; he then told staff he wants to stay on the unit; would not engage with marketing writer Diagnostics Vital Signs (24Hr): BMI result Body Mass Index 21.0 Labs Results: 04/25/22 19:39 04/25/22 19:39 Labs: Laboratory Results - last 48 hr 05/09/22 14:05 Absolute Neuts (auto) 3.0 Medications Medications Current Medications Acetaminophen (Acetaminophen 325 Mg Tablet) 650 mg PO Q6H PRN PRN Reason: Headache/Pain Mild Scale (1-3) Al Hydroxide/Mg Hydroxide (Magnesium Hydrox/Alum Hydrox 30 Ml Oral.Susp) 30 ml PO Q6H PRN PRN Reason: Heartburn/Nausea Chlorpromazine HCl (Chlorpromazine Hcl 100 Mg Tablet) 100 mg PO QID PRN PRN Reason: agitation Clozapine (Clozapine Odt 100 Mg Tab.Rapdis) 275 mg PO BEDTIME EUGENIA Hydroxyzine HCl (Hydroxyzine Hcl 25 Mg Tablet) 25 mg PO Q6H PRN PRN Reason: Anxiety Lorazepam (Lorazepam 1 Mg Tablet) 1 mg PO QID PRN PRN Reason: agitation;may give w thorazine Magnesium Hydroxide (Milk Of Magnesia 30 Ml Oral.Susp) 30 ml PO DAILY PRN PRN Reason: Constipation Nicotine Polacrilex (Nicotine Polacrilex 2 Mg Gum) 4 mg BUCCAL Q2H PRN PRN Reason: nicotine withdrawal Last Admin: 05/09/22 12:40 Dose: 4 mg Olanzapine (Olanzapine Odt 10 Mg Tab.Rapdis) 10 mg TRANSLINGU TID PRN PRN Reason: agitation Last Admin: 05/09/22 14:48 Dose: 10 mg Quetiapine Fumarate (Quetiapine Fumarate 50 Mg Tablet) 50 mg PO Q4H PRN PRN Reason: psychosis, agitation, anxiety Trazodone HCl (Trazodone Hcl 50 Mg Tablet) 50 mg PO BEDTIME PRN PRN Reason: Insomnia Allergies Allergies Allergy/AdvReac Type Severity Reaction Status Date / Time diphenhydramine Allergy Unknown unknown Verified 10/12/20 04:33 [From BENADRYL] haloperidol [From HALDOL] Allergy Unknown unknown Verified 10/12/20 04:33 paliperidone AdvReac Severe dystonia Verified 03/30/21 23:47 Assessment & Plan Assessment & Plan (1) Schizoaffective disorder, bipolar type: Status: Acute Code(s): F25.0 - Schizoaffective disorder, bipolar type Plan Jose is a 26 y.o. male with a history of schizoaffective disorder, bipolar type. Pt has hx of multiple previous inpatient admissions for psychotic sx, last on unit February 2022, command AH, internal preoccupation, paranoid ideations, and agitation; past hx of serious suicide attempt when psychotic. Pt presents To the emergency room after family called the police for a wellness check, with patient disorganized, wandering the streets at night, not eating in the face of medication non adherence. Patient is a limited historian. He is pleasant and friendly on admission, knowing this marketing writer. He says he stopped taking medications because he did have a refill. -patient has recently been willing to restart clozapine and once titrated back to home dose returns to baseline. Patient did try to pretend he took clozapine today but admitted he did not and said he will do so going forward. Hospital course 04/28 patient remains disorganized speech and behavior, intensely internally preoccupied and having constant dialogue with himself, unaware that others observe this; denies all psychiatric symptoms including auditory hallucinations. Has been taking clozapine 04/30 patient refused clozapine dose last night 04/29; he again refused at this morning but then reconsidered and said he would take it though when he took it, he clearly tried to remove it from his mouth however since it was disintegrating type, most of it seemed to be and just did. Later patient refused evening dose and said he does not care about being discharged, does not care about being hears for 6 months -today patient got 75 mg in the morning -nursing staff will try to offer again patient's bedtime dose, however if he continues to refuse taking it, will half the a lower dose again at some point soon 05/01 patient again initially refused clozapine but then agreed to take it; remains floridly psychotic 05/02 no change; patient refused blood draw; marketing writer discussed with pharmacy who agrees to continue medication even though he did not get blood drawn. Patient has been stable on this medication for months and has always had ANC's within normal limits; withholding this medication will only prolong and deepen his psychosis, making it all that much harder to get blood draws. Patient has a history of becoming a significant danger both to himself and others when deco mpensated. It is marketing writer's strong opinion at this time that the potential benefit for continuing clozapine titration far outweighs the potential risk. 05/03 patient repeatedly refused blood draw however eventually consented; he has also intermittently refuses vitals; patient refuses medications for while but then so far has eventually agreed to take nighttime medications though will try to spit them out when he thinks no one is looking. Staff keeps a close eye and general consensus is that the medication is getting ingested, however this is only happening because he is in a highly structured environment. Patient has no insight at all. Sometimes when he refuses medication, he replies that he does not care if it results in him being hospitalized for 6 months. Supervisor Billposting and team have ongoing discussions about what is best for patient. Given the fact that he can have a very dangerous behaviors when decompensated and patient repeatedly stops taking medications soon after discharge, team is considering whether patient needs admission to a long-term facility such as [facility] where he can be stabilized on medication and remained stable for a much longer duration; the hope would be that during this prolonged period of stabilization, patient's insight would improve and he would get accustomed to being stable and maybe even prefer it, thus increasing his chances of remained stable once back in the community. Will continue to monitor, assess and discuss 05/04 again refused clozapine last night; was willing to take it today. Patient remains floridly psychotic with poor insight. -Patient's mother reports that at home, patient was standing in front of the door way leading to the balcony and having a back and forth, responding to auditory hallucinations and was overheard saying just jump Filipe.. just do it to which Filipe would respond no Filipe don't and then again just do it -patient is very inconsistent with medication, often refusing it, refusing labs, then being willing to take it; however he has no insight about his need for medication and denies all psychiatric symptoms, including auditory hallucinations or even that he talks to himself, despite that he just did so in front of marketing writer or staff. Patient's refusal to his specific medication of clozapine is very problematic since missing doses, as few as 2 days in a row makes a person increasingly vulnerable to side effects and the need to keep restarting titration, making it difficult for patient to ever reach his th erapeutic dose. Patient's ongoing inconsistency to refusal with medication and associated lab work demonstrate that in patient's own mind, he is not here for treatment and marketing writer decided to revoke patients CV. Team will petition the court for involuntary commitment due to his high risk of unsafe behaviors associated with his poor insight, judgment and inability to make safe healthy decisions for himself. Even at patient's baseline on therapeutic dose of clozapine, he remains internally preoccupied and without any insight into his psychiatric illness or need for medications. There remains strong consideration that patient may require long-term admission to more deeply stabilize. This was briefly discussed with patient who said I took my medication which he in fact did today; however patient is unable to understand that he constantly refuses it or admit that he tries to cheek it. 05/07/2022: No changes to current regimen the continue Clozaril as per treatment team 05/08 floridly manic and psychotic; increased psychomotor agitation, more in the milieu with disorganized behaviors -often patient starts to stabilize when reaching current clozapine dose, however no improvement thus far 05/09 floridly manic; disorganized in the milieu, pacing the halls laughing very loudly to himself; refused to meet with his installer technician today saying he does not trust him; patient was found underneath his mattress saying he was hiding from the Cigarette Paper Tester. He then told staff he wants to stay on the unit. -marketing writer and team continue to discuss and agree that at this time, patient needs a long-term admission with a structured environment so that once stabilized, he'll be able to remain on stabilizing medications, become more accustomed to feeling stable; hopefully this will deepen his insight into his psychiatric illness illness and need for medication and thus not just be safe in the community, but be more successful and more able to enjoy his life. PLAn: CV-revovked Will petition the court for involuntary commitment and substituted judgment Q 15 minute checks Increase to clozapine 275mg mg q.h.s.;will use ODT at first since pt tries to check it; will titrate back to home dose of 300 mg.? Patient does not like medication in the morning -Ordered clozapine level ANC 04/25 6.0 ANC 05/02 refused x2; will retry ANC 05/03 2.0 I spent minutes with the patient and/or on the patient floor today, greater than?50% of which was spent counseling/coordinating care. Patient educated on: diagnosis Informed Consent: does not understand Reason for contiued inpatient stay Substantial Risk for: inability to function
[2022-05-09 18:00] VITALS: BP 123/69; PULSE 70; RESP 18
[2022-05-09] MEDS: CLOZAPINE 100 MG 275 MG PO (20:36)
[2022-05-10] MEDS: Nicotine Polacrilex 2 MG GUM 4 MG BUCCAL ×2 (00:50→21:37)
--- NOTE | 2022-05-10 09:47 | P.PNPSI_ITS ---
Subjective Subjective Date of Service: 05/10/22 Reason For Visit: psych eval Interim History: Patient again refused to talk with this commercial insurance underwriter. Head Mva Reactor Operator tried to explain about court tomorrow and involving a chief controller tower however patient said he did not want to talk and for commercial insurance underwriter to go away. site worker also has tried several times to engage with patient on this topic but he refuses to talk with her as well. Patient remains floridly psychotic, quickly transitioning from laughing hysterically at some internal stimuli to running down the zheng at full speed, agitated and cursing. Staff reports feeling fearful of him at times. Overnight, patient up all night long, showering multiple times. Patient's mother was planning to testify about patients suicidality however she had to leave the [place] suddenly for [place] since her grandmother yesterday; she said she will try to get on zoom call for court but is unsure if she will be able to. Mental Status Exam Mental Status Exam Narrative: Pt is alert and oriented; behavior is disorganized, guarded and barely cooperative; excessively silly, laughing hysterically out loud in milue at internal stimuli; patient is not in distress; dressed in casual attire, shaved; mood good affect either constricted or expansive; poor eye contact poor; Speech is mostly loud volume; increased psychomotor agitation; some retardation also intermittently present; thought process is goal oriented when wants something specific, but otherwise, disorganized with thought blocking; Thought content is on undisclosed internally preoccupied thoughts; denies SI/HI. Denies AH but is absorbed in responding to internal stimuli and self-dialoguing, laughing to himself, asking/answering self questions throughout the day; Patients insight and judgment impaired. Diagnostics Vital Signs (24Hr): Vital Signs - 24 hr 05/09/22 18:00 Pulse Rate 70 Respiratory Rate 18 Blood Pressure 123/69 Oxygen Delivery Method Room Air BMI result Body Mass Index 21.0 Labs Results: 04/25/22 19:39 04/25/22 19:39 Labs: Laboratory Results - last 48 hr 05/09/22 14:05 Absolute Neuts (auto) 3.0 Medications Medications Current Medications Acetaminophen (Acetaminophen 325 Mg Tablet) 650 mg PO Q6H PRN PRN Reason: Headache/Pain Mild Scale (1-3) Al Hydroxide/Mg Hydroxide (Magnesium Hydrox/Alum Hydrox 30 Ml Oral.Susp) 30 ml PO Q6H PRN PRN Reason: Heartburn/Nausea Chlorpromazine HCl (Chlorpromazine Hcl 100 Mg Tablet) 100 mg PO QID PRN PRN Reason: agitation Clozapine (Clozapine Odt 100 Mg Tab.Rapdis) 300 mg PO BEDTIME EUGENIA Hydroxyzine HCl (Hydroxyzine Hcl 25 Mg Tablet) 25 mg PO Q6H PRN PRN Reason: Anxiety Lorazepam (Lorazepam 1 Mg Tablet) 1 mg PO QID PRN PRN Reason: agitation;may give w thorazine Magnesium Hydroxide (Milk Of Magnesia 30 Ml Oral.Susp) 30 ml PO DAILY PRN PRN Reason: Constipation Nicotine Polacrilex (Nicotine Polacrilex 2 Mg Gum) 4 mg BUCCAL Q2H PRN PRN Reason: nicotine withdrawal Last Admin: 05/10/22 00:50 Dose: 4 mg Olanzapine (Olanzapine Odt 10 Mg Tab.Rapdis) 10 mg TRANSLINGU TID PRN PRN Reason: agitation Last Admin: 05/09/22 14:48 Dose: 10 mg Quetiapine Fumarate (Quetiapine Fumarate 50 Mg Tablet) 50 mg PO Q4H PRN PRN Reason: psychosis, agitation, anxiety Trazodone HCl (Trazodone Hcl 50 Mg Tablet) 50 mg PO BEDTIME PRN PRN Reason: Insomnia Allergies Allergies Allergy/AdvReac Type Severity Reaction Status Date / Time diphenhydramine Allergy Unknown unknown Verified 10/12/20 04:33 [From BENADRYL] haloperidol [From HALDOL] Allergy Unknown unknown Verified 10/12/20 04:33 paliperidone AdvReac Severe dystonia Verified 03/30/21 23:47 Assessment & Plan Assessment & Plan (1) Schizoaffective disorder, bipolar type: Status: Acute Code(s): F25.0 - Schizoaffective disorder, bipolar type Plan Jose is a 26 y.o. male with a history of schizoaffective disorder, bipolar type. Pt has hx of multiple previous inpatient admissions for psychotic sx, last on unit February 2022, command AH, internal preoccupation, paranoid ideations, and agitation; past hx of serious suicide attempt when psychotic. Pt presents To the emergency room after family called the police for a wellness check, with patient disorganized, wandering the streets at night, not eating in the face of medication non adherence. Patient is a limited historian. He is pleasant and friendly on admission, knowing this commercial insurance underwriter. He says he stopped taking medications because he did have a refill. -patient has recently been willing to restart clozapine and once titrated back to home dose returns to baseline. Patient did try to pretend he took clozapine today but admitted he did not and said he will do so going forward. Hospital course 04/28 patient remains disorganized speech and behavior, intensely internally preoccupied and having constant dialogue with himself, unaware that others observe this; denies all psychiatric symptoms including auditory hallucinations. Has been taking clozapine 04/30 patient refused clozapine dose last night 04/29; he again refused at this morning but then reconsidered and said he would take it though when he took it, he clearly tried to remove it from his mouth however since it was disintegrating type, most of it seemed to be and just did. Later patient refused evening dose and said he does not care about being discharged, does not care about being hears for 6 months -today patient got 75 mg in the morning -nursing staff will try to offer again patient's bedtime dose, however if he continues to refuse taking it, will half the a lower dose again at some point soon 05/01 patient again initially refused clozapine but then agreed to take it; remains floridly psychotic 05/02 no change; patient refused blood draw; commercial insurance underwriter discussed with pharmacy who agrees to continue medication even though he did not get blood drawn. Patient has been stable on this medication for months and has always had ANC's within normal limits; withholding this medication will only prolong and deepen his psychosis, making it all that much harder to get blood draws. Patient has a history of becoming a significant danger both to himself and others when decompensated. It is commercial insurance underwriter's strong opinion at this time that the potential benefit for continuing clozapine titration far outweighs the potential risk. 05/03 patient repeatedly refused blood draw however eventually consented; he has also intermittently refuses vitals; patient refuses medications for while but then so far has eventually agreed to take nighttime medications though will try to spit them out when he thinks no one is looking. Staff keeps a close eye and general consensus is that the medication is getting ingested, however this is only happening because he is in a highly structured environment. Patient has no insight at all. Sometimes when he refuses medication, he replies that he does not care if it results in him being hospitalized for 6 months. Head Mva Reactor Operator and team have ongoing discussions about what is best for patient. Given the fact that he can have a very dangerous behaviors when decompensated and patient repeatedly stops taking medications soon after discharge, team is considering whether patient needs admission to a long-term facility such as [facility] where he can be stabilized on medication and remained stable for a much longer duration; the hope would be that during this prolonged period of stabilization, patient's insight would improve and he would get accustomed to being stable and maybe even prefer it, thus increasing his chances of remained stable once back in the community. Will continue to monitor, assess and discuss 05/04 again refused clozapine last night; was willing to take it today. Patient remains floridly psychotic with poor insight. -Patient's mother reports that at home, patient was standing in front of the door way leading to the balcony and having a back and forth, responding to auditory hallucinations and was overheard saying just jump Filipe.. just do it to which Filipe would respond no Filipe don't and then again just do it -patient is very inconsistent with medication, often refusing it, refusing labs, then being willing to take it; however he has no insight about his need for medication and denies all psychiatric symptoms, including auditory hallucinations or even that he talks to himself, despite that he just did so in front of commercial insurance underwriter or staff. Patient's refusal to his specific medication of clozapine is very problematic since missing doses, as few as 2 days in a row makes a person increasingly vulnerable to side effects and the need to keep restarting titration, making it difficult for patient to ever reach his therapeutic dose. Patient's ongoing inconsistency to refusal with medication and associated lab work demonstrate that in patient's own mind, he is not here for treatment and commercial insurance underwriter decided to revoke patients CV. Team will petition the court for involuntary commitment due to his high risk of unsafe behaviors associated with his poor insight, judgment and inability to make safe healthy decisions for himself. Even at patient's baseline on therapeutic dose of clozapine, he remains internally preoccupied and without any insight into his psychiatric illness or need for medications. There remains strong consideration that patient may require long-term admission to more deeply stabilize. This was briefly discussed with patient who said I took my medication which he in fact did today; however patient is unable to understand that he constantly refuses it or admit that he tries to cheek it. 05/07/2022: No changes to current regimen the continue Clozaril as per treatment team 05/08 floridly manic and psychotic; increased psychomotor agitation, more in the milieu with disorganized behaviors -often patient starts to stabilize when reaching current clozapine dose, however no improvement thus far 05/09 floridly manic; disorganized in the milieu, pacing the halls laughing very loudly to himself; refused to meet with his trial lawyer today saying he does not trust him; patient was found underneath his mattress saying he was hiding from t he District Representative. He then told staff he wants to stay on the unit. -commercial insurance underwriter and team continue to discuss and agree that at this time, patient needs a long-term admission with a structured environment so that once stabilized, he'll be able to remain on stabilizing medications, become more accustomed to feeling stable; hopefully this will deepen his insight into his psychiatric illness illness and need for medication and thus not just be safe in the community, but be more successful and more able to enjoy his life. 05/10 though he seems to be taking his medication which is in disintegrating form, he remains floridly psychotic. Refuse to talk with commercial insurance underwriter; commercial insurance underwriter tried to explain court however patient would not engage or even listen telling commercial insurance underwriter to go way PLAn: CV-revovked Will petition the court for involuntary commitment and substituted judgment Q 15 minute checks Increase to clozapine 300mg mg q.h.s.;will use ODT at first since pt tries to check it; will titrate back to home dose of 300 mg.? Patient does not like medication in the morning -Ordered clozapine level ANC 04/25 6.0 ANC 05/02 refused x2; will retry ANC 05/03 2.0 I spent minutes with the patient and/or on the patient floor today, greater than?50% of which was spent counseling/coordinating care. Patient educated on: diagnosis Informed Consent: does not understand Reason for contiued inpatient stay Substantial Risk for: inability to function
[2022-05-10] MEDS: Acetaminophen 325 MG TABLET 650 MG PO (21:37)
[2022-05-11 06:00] VITALS: BP 124/65; PULSE 83; RESP 16; TEMP 37.3; O2SAT 96
--- NOTE | 2022-05-11 09:04 | P.PNPSI_ITS ---
Subjective Subjective Date of Service: 05/11/22 Reason For Visit: psych eval Interim History: Patient politely said hello but refused to engage further. Gas Cutting Machine Operator asked if patient would be willing to discuss today's pending court, however patient said politely know thank you does not want to talk about it. Remains floridly manic, talking to himself, angry Edge, swearing at times other times laughing hysterically. Mental Status Exam Mental Status Exam Narrative: Pt is alert and oriented; behavior is disorganized, guarded and momentarily cooperative; excessively silly, laughing hysterically out loud in milue at internal stimuli; patient is not in distress; dressed in casual attire, shaved; mood good affect either constricted or expansive; poor eye contact poor; Spee ch is mostly loud volume; increased psychomotor agitation; some retardation also intermittently present; thought process is goal oriented when wants something specific, but otherwise, disorganized with thought blocking; Thought content is on undisclosed internally preoccupied thoughts; denies SI/HI. Denies AH but is absorbed in responding to internal stimuli and self-dialoguing, laughing to himself, asking/answering self questions throughout the day; Patients insight and judgment impaired. Diagnostics Vital Signs (24Hr): BMI result Body Mass Index 21.0 Labs Results: 04/25/22 19:39 04/25/22 19:39 Labs: Laboratory Results - last 48 hr 05/09/22 14:05 Absolute Neuts (auto) 3.0 Medications Medications Current Medications Acetaminophen (Acetaminophen 325 Mg Tablet) 650 mg PO Q6H PRN PRN Reason: Headache/Pain Mild Scale (1-3) Last Admin: 05/10/22 21:37 Dose: 650 mg Al Hydroxide/Mg Hydroxide (Magnesium Hydrox/Alum Hydrox 30 Ml Oral.Susp) 30 ml PO Q6H PRN PRN Reason: Heartburn/Nausea Chlorpromazine HCl (Chlorpromazine Hcl 100 Mg Tablet) 100 mg PO QID PRN PRN Reason: agitation Clozapine (Clozapine Odt 100 Mg Tab.Rapdis) 300 mg PO BEDTIME EUGENIA Last Admin: 05/10/22 21:33 Dose: Not Given Hydroxyzine HCl (Hydroxyzine Hcl 25 Mg Tablet) 25 mg PO Q6H PRN PRN Reason: Anxiety Lorazepam (Lorazepam 1 Mg Tablet) 1 mg PO QID PRN PRN Reason: agitation;may give w thorazine Magnesium Hydroxide (Milk Of Magnesia 30 Ml Oral.Susp) 30 ml PO DAILY PRN PRN Reason: Constipation Nicotine Polacrilex (Nicotine Polacrilex 2 Mg Gum) 4 mg BUCCAL Q2H PRN PRN Reason: nicotine withdrawal Last Admin: 05/10/22 21:37 Dose: 4 mg Olanzapine (Olanzapine Odt 10 Mg Tab.Rapdis) 10 mg TRANSLINGU TID PRN PRN Reason: agitation Last Admin: 05/09/22 14:48 Dose: 10 mg Quetiapine Fumarate (Quetiapine Fumarate 50 Mg Tablet) 50 mg PO Q4H PRN PRN Reason: psychosis, agitation, anxiety Trazodone HCl (Trazodone Hcl 50 Mg Tablet) 50 mg PO BEDTIME PRN PRN Reason: Insomnia Allergies Allergies Allergy/AdvReac Type Severity Reaction Status Date / Time diphenhydramine Allergy Unknown unknown Verified 10/12/20 04:33 [From BENADRYL] haloperidol [From HALDOL] Allergy Unknown unknown Verified 10/12/20 04:33 paliperidone AdvReac Severe dystonia Verified 03/30/21 23:47 Assessment & Plan Assessment & Plan (1) Schizoaffective disorder, bipolar type: Status: Acute Code(s): F25.0 - Schizoaffective disorder, bipolar type Plan Jose is a 26 y.o. male with a history of schizoaffective disorder, bipolar type. Pt has hx of multiple previous inpatient admissions for psychotic sx, last on unit February 2022, command AH, internal preoccupation, paranoid ideations, and agitation; past hx of serious suicide attempt when psychotic. Pt presents To the emergency room after family called the police for a wellness check, with patient disorganized, wandering the streets at night, not eating in the face of medication non adherence. Patient is a limited historian. He is pleasant and friendly on admission, knowing this teletypewriter installer. He says he stopped taking medications because he did have a refill. -patient has recently been willing to restart clozapine and once titrated back to home dose returns to baseline. Patient did try to pretend he took clozapine today but admitted he did not and said he will do so going forward. Hospital course 04/28 patient remains disorganized speech and behavior, intensely internally preoccupied and having constant dialogue with himself, unaware that others observe this; denies all psychiatric symptoms including auditory hallucinations. Has been taking clozapine 04/30 patient refused clozapine dose last night 04/29; he again refused at this morning but then reconsidered and said he would take it though when he took it, he clearly tried to remove it from his mouth however since it was disintegrating type, most of it seemed to be and just did. Later patient refused evening dose and said he does not care about being discharged, does not care about being hears for 6 months -today patient got 75 mg in the morning -nursing staff will try to offer again patient's bedtime dose, however if he continues to refuse taking it, will half the a lower dose again at some point soon 05/01 patient again initially refused clozapine but then agreed to take it; remains floridly psychotic 05/02 no change; patient refused blood draw; teletypewriter installer discussed with pharmacy who agrees to continue medication even though he did not get blood drawn. Patient has been stable on this medication for months and has always had ANC's within normal limits; withholding this medication will only prolong and deepen his psychosis, making it all that much harder to get blood draws. Patient has a history of becoming a significant danger both to himself and others when decompensated. It is teletypewriter installer's strong opinion at this time that the potential benefit for continuing clozapine titration far outweighs the potential risk. 05/03 patient repeatedly refused blood draw however eventually consented; he has also intermittently refuses vitals; patient refuses medications for while but then so far has eventually agreed to take nighttime medications though will try to spit them out when he thinks no one is looking. Staff keeps a close eye and general consensus is that the medication is getting ingested, however this is only happening because he is in a highly structured environment. Patient has no insight at all. Sometimes when he refuses medication, he replies that he does not care if it results in him being hospitalized for 6 months. Gas Cutting Machine Operator and team have ongoing discussions about what is best for patient. Given the fact that he can have a very dangerous behaviors when decompensated and patient repeatedly stops taking medications soon after discharge, team is considering whether patient needs admission to a long-term facility such as [facility] where he can be stabilized on medication and remained stable for a much longer duration; the hope would be that during this prolonged period of stabilization, patient's insight would improve and he would get accustomed to being stable and maybe even prefer it, thus increasing his chances of remained stable once back in the community. Will continue to monitor, assess and discuss 05/04 again refused clozapine last night; was willing to take it today. Patient remains floridly psychotic with poor insight. -Patient's mother reports that at home, patient was standing in front of the door way leading to the balcony and having a back and forth, responding to auditory hallucinations and was overheard saying just jump Filipe.. just do it to which Filiep would respond no Filipe don't and then again just do it -patient is very inconsistent with medication, often refusing it, refusing labs, then being willing to take it; however he has no insight about his need for medication and denies all psychiatric symptoms, including auditory hallucinations or even that he talks to himself, despite that he just did so in front of teletypewriter installer or staff. Patient's refusal to his specific medication of clozapine is very problematic since missing doses, as few as 2 days in a row makes a person increasingly vulnerable to side effects and the need to keep restarting titration, making it difficult for patient to ever reach his therapeutic dose. Patient's ongoing inconsistency to refusal with medication and associated lab work demonstrate that in patient's own mind, he is not here for treatment and teletypewriter installer decided to revoke patients CV. Team will petition the court for involuntary commitment due to his high risk of unsafe behaviors associated with his poor insight, judgment and inability to make safe healthy decisions for himself. Even at patient's baseline on therapeutic dose of clozapine, he remains internally preoccupied and without any insight into his psychiatric illness or need for medications. There remains strong consideration that patient may require long-term admission to more deeply stabilize. This was briefly discussed with patient who said I took my medication which he in fact did today; however patient is unable to understand that he constantly refuses it or admit that he tries to cheek it. 05/07/2022: No changes to current regimen the continue Clozaril as per treatment team 05/08 floridly manic and psychotic; increased psychomotor agitation, more in the milieu with disorganized behaviors -often patient starts to stabilize when reaching current clozapine dose, however no improvement thus far 05/09 floridly manic; disorganized in the milieu, pacing the halls laughing very loudly to himself; refused to meet with his registered private duty nurse today saying he does not trust him; patient was found underneath his mattress saying he was hiding from the Senior Hardware Engineer. He then told staff he wants to stay on the unit. -teletypewriter installer and team continue to discuss and agree that at this time, patient needs a long-term admission with a structured environment so that once stabilized, he'll be able to remain on stabilizing medications, become more accustomed to feeling stable; hopefully this will deepen his insight into his psychiatric illness illness and need for medication and thus not just be safe in the community, but be more successful and more able to enjoy his life. 05/10 though he seems to be taking his medication which is in disintegrating form, he remains floridly psychotic. Refuse to talk with teletypewriter installer; teletypewriter installer tried to explain court however patient would not engage or even listen telling teletypewriter installer to go way 05/11 remains psychotic. Yesterday after patient received be a medication, he ran full speed down the hallway into his bathroom and close the door; would not respond to staff and had the water running, ostensibly to wash out the medicat ion. Did not want to talk about Court. Discussed case with deputy fire marshal and postponement agreed upon PLAn: CV-revovked Will petition the court for involuntary commitment and substituted judgment Q 15 minute checks Increase to clozapine 300mg mg q.h.s.;will use ODT at first since pt tries to check it; will titrate back to home dose of 300 mg.? Patient does not like medication in the morning -Ordered clozapine level ANC 04/25 6.0 ANC 05/02 refused x2; will retry ANC 05/03 2.0 I spent minutes with the patient and/or on the patient floor today, greater than?50% of which was spent counseling/coordinating care. Patient educated on: diagnosis Informed Consent: does not understand Reason for contiued inpatient stay Substantial Risk for: inability to function and rapid decompensation
[2022-05-11 09:17] LABS: Neut%MD 70.4 %; Neutrophils Absolute Auto 4.7 x10*3/uL (2.0-8.3); WBCANC 6.6 X10*3/uL
[2022-05-11 10:48] LABS: Influenza A PCR NEGATIVE (Negative); Influenza B PCR NEGATIVE (Negative); Resp Syncy Virus RNA Qual PCR NEGATIVE (Negative); SARS COV2 PCR INHOUSE POSITIVE (Negative)
[2022-05-11 15:29] VITALS: BP 159/70; PULSE 97; TEMP 37.1; O2SAT 95
[2022-05-11] MEDS: CLOZAPINE 100 MG 300 MG PO (18:31)
--- NOTE | 2022-05-12 17:24 | HO.PSYCHPN ---
Subjective Subjective Date of Service: 05/12/22 Reason For Visit: psych eval Interim History: Patient positive for COVID; says he is feeling miserable with aches, sweaty and sore throat. Patient said he very much wanted a Tylenol however when it was brought to him he refused. Patient agreed to being transferred to [facility] for time being while recovering from COVID; unrelatedly said F you to typewriter operator automatic under his breath. Cultural Anthropology Professor tried to discuss with patient his psychiatric illness and plan however patient initially said he does not want to talk about it. Cultural Anthropology Professor appealed and patient was willing to listen. Cultural Anthropology Professor explained that team feels he needs admission to a state facility for longer-term admission given the fact that his pattern is to stop taking his medications soon after discharge and becomes unsafe. Patient said no, I'm not going to do that...Not going to a state facility. Mental Status Exam Mental Status Exam Narrative: Pt is alert and oriented; behavior is disorganized, guarded and momentarily cooperative; excessively silly, laughing hysterically out loud in milue at internal stimuli; patient is not in distress; dressed in casual attire, shaved; mood good affect either constricted or expansive; poor eye contact poor; Speech is mostly loud volume; increased psychomotor agitation; some retardation also intermittently present; thought process is goal oriented when wants something specific, but otherwise, disorganized with thought blocking; Thought content is on undisclosed internally preoccupied thoughts; denies SI/HI. Denies AH but is absorbed in responding to internal stimuli and self-dialoguing, laughing to himself, asking/answering self questions throughout the day; Patients insight and judgment impaired. Diagnostics Vital Signs (24Hr): BMI result Body Mass Index 21.0 Labs Results: 04/25/22 19:39 04/25/22 19:39 Labs: Laboratory Results - last 48 hr 05/11/22 05/11/22 08:31 09:56 Absolute Neuts (auto) 4.7 Influenza Type A (PCR) NEGATIVE Influenza Type B (PCR) NEGATIVE RSV RNA Qual (PCR) NEGATIVE SARS-CoV-2 RNA (RT-PCR) POSITIVE A Medications Medications Current Medications Acetaminophen (Acetaminophen 325 Mg Tablet) 650 mg PO Q6H PRN PRN Reason: Headache/Pain Mild Scale (1-3) Last Admin: 05/10/22 21:37 Dose: 650 mg Al Hydroxide/Mg Hydroxide (Magnesium Hydrox/Alum Hydrox 30 Ml Oral.Susp) 30 ml PO Q6H PRN PRN Reason: Heartburn/Nausea Chlorpromazine HCl (Chlorpromazine Hcl 100 Mg Tablet) 100 mg PO QID PRN PRN Reason: agitation Clozapine (Clozapine Odt 25 Mg Tab.Rapdis) 325 mg PO BEDTIME EUGENIA Hydroxyzine HCl (Hydroxyzine Hcl 25 Mg Tablet) 25 mg PO Q6H PRN PRN Reason: Anxiety Ibuprofen (Ibuprofen 600 Mg Tablet) 600 mg PO Q6H PRN PRN Reason: mild pain Lorazepam (Lorazepam 1 Mg Tablet) 1 mg PO QID PRN PRN Reason: agitation;may give w thorazine Magnesium Hydroxide (Milk Of Magnesia 30 Ml Oral.Susp) 30 ml PO DAILY PRN PRN Reason: Constipation Nicotine Polacrilex (Nicotine Polacrilex 2 Mg Gum) 4 mg BUCCAL Q2H PRN PRN Reason: nicotine withdrawal Last Admin: 05/10/22 21:37 Dose: 4 mg Olanzapine (Olanzapine Odt 10 Mg Tab.Rapdis) 10 mg TRANSLINGU TID PRN PRN Reason: agitation Last Admin: 05/09/22 14:48 Dose: 10 mg Quetiapine Fumarate (Quetiapine Fumarate 50 Mg Tablet) 50 mg PO Q4H PRN PRN Reason: psychosis, agitation, anxiety Trazodone HCl (Trazodone Hcl 50 Mg Tablet) 50 mg PO BEDTIME PRN PRN Reason: Insomnia Allergies Allergies Allergy/AdvReac Type Severity Reaction Status Date / Time diphenhydramine Allergy Unknown unknown Verified 10/12/20 04:33 [From BENADRYL] haloperidol [From HALDOL] Allergy Unknown unknown Verified 10/12/20 04:33 paliperidone AdvReac Severe dystonia Verified 03/30/21 23:47 Assessment & Plan Assessment & Plan (1) Schizoaffective disorder, bipolar type: Status: Acute Code(s): F25.0 - Schizoaffective disorder, bipolar type Plan Jose is a 26 y.o. male with a history of schizoaffective disorder, bipolar type. Pt has hx of multiple previous inpatient admissions for psychotic sx, last on unit February 2022, command AH, internal preoccupation, paranoid ideations, and agitation; past hx of serious suicide attempt when psychotic. Pt presents To the emergency room after family called the police for a wellness check, with patient disorganized, wandering the streets at night, not eating in the face of medication non adherence. Patient is a limited historian. He is pleasant and friendly on admission, knowing this typewriter operator automatic. He says he stopped taking medications because he did have a refill. -patient has recently been willing to restart clozapine and once titrated back to home dose returns to baseline. Patient did try to pretend he took clozapine today but admitted he did not and said he will do so going forward. Hospital course 04/28 patient remains disorganized speech and behavior, intensely internally preoccupied and having constant dialogue with himself, unaware that others observe this; denies all psychiatric symptoms including auditory hallucinations. Has been taking clozapine 04/30 patient refused clozapine dose last night 04/29; he again refused at this morning but then reconsidered and said he would take it though when he took it, he clearly tried to remove it from his mouth however since it was disintegrating type, most of it seemed to be and just did. Later patient refused evening dose and said he does not care about being discharged, does not care about being hears for 6 months -today patient got 75 mg in the morning -nursing staff will try to offer again patient's bedtime dose, however if he continues to refuse taking it, will half the a lower dose again at some point soon 05/01 patient again initially refused clozapine but then agreed to take it; remains floridly psychotic 05/02 no change; patient refused blood draw; typewriter operator automatic discussed with pharmacy who agrees to continue medication even though he did not get blood drawn. Patient has been stable on this medication for months and has always had ANC's within normal limits; withholding this medication will only prolong and deepen his psychosis, making it all that much harder to get blood draws. Patient has a history of becoming a significant danger both to himself and others when decompensated. It is typewriter operator automatic's strong opinion at this time that the potential benefit for continuing clozapine titration far outweighs the potential risk. 05/03 patient repeatedly refused blood draw however eventually consented; he has also intermittently refuses vitals; patient refuses medications for while but then so far has eventually agreed to take nighttime medications though will try to spit them out when he thinks no one is looking. Staff keeps a close eye and general consensus is that the medication is getting ingested, however this is only happening because he is in a highly structured environment. Patient has no insight at all. Sometimes when he refuses medication, he replies that he does not care if it results in him being hospitalized for 6 months. Cultural Anthropology Professor and team have ongoing discussions about what is best for patient. Given the fact that he can have a very dangerous behaviors when decompensated and patient repeatedly stops taking medications soon after discharge, team is considering whether patient needs admission to a long-term facility such as [facility] where he can be stabilized on medication and remained stable for a much longer duration; the hope would be that during this prolonged period of stabilization, patient's insight would improve and he would get accustomed to being stable and maybe even prefer it, thus increasing his chances of remained stable once back in the community. Will continue to monitor, assess and discuss 05/04 again refused clozapine last night; was willing to take it today. Patient remains floridly psychotic with poor insight. -Patient's mother reports that at home, patient was standing in front of the door way leading to the balcony and having a back and forth, responding to auditory hallucinations and was overheard saying just jump Filipe.. just do it to which Filipe would respond no Filipe don't and then again just do it -patient is very inconsistent with medication, often refusing it, refusing labs, then being willing to take it; however he has no insight about his need for medication and denies all psychiatric symptoms, including auditory hallucinations or even that he talks to himself, despite that he just did so in front of typewriter operator automatic or staff. Patient's refusal to his specific medication of clozapine is very problematic since missing doses, as few as 2 days in a row makes a person increasingly vulnerable to side effects and the need to keep restarting titration, making it difficult for patient to ever reach his therapeutic dose. Patient's ongoing inconsistency to refusal with medication and associated lab work demonstrate that in patient's own mind, he is not here for treatment and typewriter operator automatic decided to revoke patients CV. Team will petition the court for involuntary commitment due to his high risk of unsafe behaviors associated with his poor insight, judgment and inability to make safe healthy decisions for himself. Even at patient's baseline on therapeutic dose of clozapine, he remains internally preoccupied and without any insight into his psychiatric illness or need for medications. There remains strong consideration that patient may require long-term admission to more deeply stabilize. This was briefly discussed with patient who said I took my medication which he in fact did today; however patient is unable to understand that he constantly refuses it or admit that he tries to cheek it. 05/07/2022: No changes to current regimen the continue Clozaril as per treatment team 05/08 floridly manic and psychotic; increased psychomotor agitation, more in the milieu with disorganized behaviors -often patient starts to stabilize when reaching current clozapine dose, however no improvement thus far 05/09 floridly manic; disorganized in the milieu, pacing the halls laughing very loudly to himself; refused to meet with his nail polish brush machine feeder today saying he does not trust him; patient was found underneath his mattress saying he was hiding from the Warehouse Order Puller. He then told staff he wants to stay on the unit. -typewriter operator automatic and team continue to discuss and agree that at this time, patient needs a long-term admission with a structured environment so that once stabilized, he'll be able to remain on stabilizing medications, become more accustomed to feeling stable; hopefully this will deepen his insight into his psychiatric illness illness and need for medication and thus not just be safe in the community, but be more successful and more able to enjoy his life. 05/10 though he seems to be taking his medication which is in disintegrating form, he remains floridly psychotic. Refuse to talk with typewriter operator automatic; typewriter operator automatic tried to explain court however patient would not engage or even listen telling typewriter operator automatic to go way 05/11 remains psychotic. Yesterday after patient received be a medication, he ran full speed down the hallway into his bathroom and close the door; would not respond to staff and had the water running, ostensibly to wash out the medication. Did not want to talk about Court. Discussed case with guitar maker hand and postponement agreed upon 05/12 Cultural Anthropology Professor explained that team feels he needs admission to a state facility for longer-term admission given the fact that his pattern is to stop taking his medications soon after discharge and becomes unsafe. Patient said no, I'm not going to do that...Not going to a state facility. PLAn: CV-revovked (pt informed but refused to discuss; mother informed who agreed and strongly felt patient needed admission to state facility) Will petition the court for involuntary commitment and substituted judgment Q 15 minute checks Increase to clozapine 325mg mg q.h.s.;will use ODT at first since pt tries to check it; will titrate back to home dose of 300 mg.? Patient does not like medication in the morning -Ordered clozapine level ANC 04/25 6.0 ANC 05/02 refused x2; will retry ANC 05/03 2.0 I spent minutes with the patient and/or on the patient floor today, greater than?50% of which was spent counseling/coordinating care. Patient educated on: diagnosis and medical condition Informed Consent: does not understand Reason for contiued inpatient stay Substantial Risk for: inability to function
--- NOTE | 2022-05-13 09:49 | P.PNPSI_ITS ---
Subjective Subjective Date of Service: 05/13/22 Reason For Visit: psych eval Subjective Notes: Section 7 Healthcare Proxy: No Guardianship: No Medical Problems Affecting Mental Status: Yes (COVID+) Interim History: Patient was seen and discussed in rounds today. He is in isolation because of his being COVID positive. He has been refusing medications. He was not interested in talking at all. Eating and sleeping adequately. No changes were made Medication Compliance: No Attending Groups: No Review of Systems Review of Systems Yes Other Mental Status Exam Mental Status Exam Narrative: Refused Diagnostics Vital Signs (24Hr): BMI result Body Mass Index 21.0 Labs Results: 04/25/22 19:39 04/25/22 19:39 Labs: Laboratory Results - last 48 hr 05/11/22 09:56 Influenza Type A (PCR) NEGATIVE Influenza Type B (PCR) NEGATIVE RSV RNA Qual (PCR) NEGATIVE SARS-CoV-2 RNA (RT-PCR) POSITIVE A Medications Medications Current Medications Acetaminophen (Acetaminophen 325 Mg Tablet) 650 mg PO Q6H PRN PRN Reason: Headache/Pain Mild Scale (1-3) Last Admin: 05/10/22 21:37 Dose: 650 mg Al Hydroxide/Mg Hydroxide (Magnesium Hydrox/Alum Hydrox 30 Ml Oral.Susp) 30 ml PO Q6H PRN PRN Reason: Heartburn/Nausea Chlorpromazine HCl (Chlorpromazine Hcl 100 Mg Tablet) 100 mg PO QID PRN PRN Reason: agitation Clozapine 300 mg/ Clozapine 25 (mg) 325 mg PO BEDTIME EUGENIA Last Admin: 05/12/22 22:23 Dose: Not Given Hydroxyzine HCl (Hydroxyzine Hcl 25 Mg Tablet) 25 mg PO Q6H PRN PRN Reason: Anxiety Ibuprofen (Ibuprofen 600 Mg Tablet) 600 mg PO Q6H PRN PRN Reason: mild pain Lorazepam (Lorazepam 1 Mg Tablet) 1 mg PO QID PRN PRN Reason: agitation;may give w thorazine Magnesium Hydroxide (Milk Of Magnesia 30 Ml Oral.Susp) 30 ml PO DAILY PRN PRN Reason: Constipation Nicotine Polacrilex (Nicotine Polacrilex 2 Mg Gum) 4 mg BUCCAL Q2H PRN PRN Reason: nicotine withdrawal Last Admin: 05/10/22 21:37 Dose: 4 mg Olanzapine (Olanzapine Odt 10 Mg Tab.Rapdis) 10 mg TRANSLINGU TID PRN PRN Reason: agitation Last Admin: 05/09/22 14:48 Dose: 10 mg Quetiapine Fumarate (Quetiapine Fumarate 50 Mg Tablet) 50 mg PO Q4H PRN PRN Reason: psychosis, agitation, anxiety Trazodone HCl (Trazodone Hcl 50 Mg Tablet) 50 mg PO BEDTIME PRN PRN Reason: Insomnia Allergies Allergies Allergy/AdvReac Type Severity Reaction Status Date / Time diphenhydramine Allergy Unknown unknown Verified 10/12/20 04:33 [From BENADRYL] haloperidol [From HALDOL] Allergy Unknown unknown Verified 10/12/20 04:33 paliperidone AdvReac Severe dystonia Verified 03/30/21 23:47 Assessment & Plan Assessment & Plan (1) Schizoaffective disorder, bipolar type: Status: Acute Code(s): F25.0 - Schizoaffective disorder, bipolar type Plan Jose is a 26 y.o. male with a history of schizoaffective disorder, bipolar type. Pt has hx of multiple previous inpatient admissions for psychotic sx, last on unit February 2022, command AH, internal preoccupation, paranoid ideations, and agitation; past hx of serious suicide attempt when psychotic. Pt presents To the emergency room after family called the police for a wellness check, with patient disorganized, wandering the streets at night, not eating in the face of medication non adherence. Patient is a limited historian. He is pleasant and friendly on admission, knowing this writer technical publications. He says he stopped taking medications because he did have a refill. -patient has recently been willing to restart clozapine and once titrated back to home dose returns to baseline. Patient did try to pretend he took clozapine today but admitted he did not and said he will do so going forward. Hospital course 04/28 patient remains disorganized speech and behavior, intensely internally pr eoccupied and having constant dialogue with himself, unaware that others observe this; denies all psychiatric symptoms including auditory hallucinations. Has been taking clozapine 04/30 patient refused clozapine dose last night 04/29; he again refused at this morning but then reconsidered and said he would take it though when he took it, he clearly tried to remove it from his mouth however since it was disintegrating type, most of it seemed to be and just did. Later patient refused evening dose and said he does not care about being discharged, does not care about being hears for 6 months -today patient got 75 mg in the morning -nursing staff will try to offer again patient's bedtime dose, however if he continues to refuse taking it, will half the a lower dose again at some point soon 05/01 patient again initially refused clozapine but then agreed to take it; remains floridly psychotic 05/02 no change; patient refused blood draw; writer technical publications discussed with pharmacy who agrees to continue medication even though he did not get blood drawn. Patient has been stable on this medication for months and has always had ANC's within normal limits; withholding this medication will only prolong and deepen his psychosis, making it all that much harder to get blood draws. Patient has a history of becoming a significant danger both to himself and others when decompensated. It is writer technical publications's strong opinion at this time that the potential benefit for continuing clozapine titration far outweighs the potential risk. 05/03 patient repeatedly refused blood draw however eventually consented; he has also intermittently refuses vitals; patient refuses medications for while but then so far has eventually agreed to take nighttime medications though will try to spit them out when he thinks no one is looking. Staff keeps a close eye and general consensus is that the medication is getting ingested, however this is only happening because he is in a highly structured environment. Patient has no insight at all. Sometimes when he refuses medication, he replies that he does not care if it results in him being hospitalized for 6 months. Director Of Direct Marketing and team have ongoing discussions about what is best for patient. Given the fact that he can have a very dangerous behaviors when decompensated and patient repeatedly stops taking medications soon after discharge, team is considering whether patient needs admission to a long-term facility such as [facility] where he can be stabilized on medication and remained stable for a much longer duration; the hope would be that during this prolonged period of stabilization, patient's insight would improve and he would get accustomed to being stable and maybe even prefer it, thus increasing his chances of remained stable once back in the community. Will continue to monitor, assess and discuss 05/04 again refused clozapine last night; was willing to take it today. Patient remains floridly psychotic with poor insight. -Patient's mother reports that at home, patient was standing in front of the door way leading to the balcony and having a back and forth, responding to auditory hallucinations and was overheard saying just jump Filipe.. just do it to which Filipe would respond no Filipe don't and then again just do it -patient is very inconsistent with medication, often refusing it, refusing labs, then being willing to take it; however he has no insight about his need for medication and denies all psychiatric symptoms, including auditory hallucinations or even that he talks to himself, despite that he just did so in front of writer technical publications or staff. Patient's refusal to his specific medication of clozapine is very problematic since missing doses, as few as 2 days in a row makes a person increasingly vulnerable to side effects and the need to keep restarting titration, making it difficult for patient to ever reach his therapeutic dose. Patient's ongoing inconsistency to refusal with medication and associated lab work demonstrate that in patient's own mind, he is not here for treatment and writer technical publications decided to revoke patients CV. Team will petition the court for involuntary commitment due to his high risk of unsafe behaviors associated with his poor insight, judgment and inability to make safe healthy decisions for himself. Even at patient's baseline on therapeutic dose of clozapine, he remains internally preoccupied and without any insight into his psychiatric illness or need for medications. There remains strong consideration that patient may require long-term admission to more deeply stabilize. This was briefly discussed with patient who said I took my medication which he in fact did today; however patient is unable to understand that he constantly refuses it or admit that he tries to cheek it. 05/07/2022: No changes to current regimen the continue Clozaril as per treatment team 05/08 floridly manic and psychotic; increased psychomotor agitation, more in the milieu with disorganized behaviors -often patient starts to stabilize when reaching current clozapine dose, however no improvement thus far 05/09 floridly manic; disorganized in the milieu, pacing the halls laughing very loudly to himself; refused to meet with his carrot buncher today saying he does not trust him; patient was found underneath his mattress saying he was hiding from the Inside Barrel Lathe Operator. He then told staff he wants to stay on the unit. -writer technical publications and team continue to discuss and agree that at this time, patient needs a long-term admission with a structured environment so that once stabilized, he'll be able to remain on stabilizing medications, become more accustomed to feeling stable; hopefully this will deepen his insight into his psychiatric illness illness and need for medication and thus not just be safe in the community, but be more successful and more able to enjoy his life. 05/10 though he seems to be taking his medication which is in disintegrating fo rm, he remains floridly psychotic. Refuse to talk with writer technical publications; writer technical publications tried to explain court however patient would not engage or even listen telling writer technical publications to go way 05/11 remains psychotic. Yesterday after patient received be a medication, he ran full speed down the hallway into his bathroom and close the door; would not respond to staff and had the water running, ostensibly to wash out the med ication. Did not want to talk about Court. Discussed case with claim attorney and postponement agreed upon 05/12 Director Of Direct Marketing explained that team feels he needs admission to a state facility for longer-term admission given the fact that his pattern is to stop taking his medications soon after discharge and becomes unsafe. Patient said no, I'm not going to do that...Not going to a state facility. PLAn: CV-revovked (pt informed but refused to discuss; mother informed who agreed and strongly felt patient needed admission to state facility) Will petition the court for involuntary commitment and substituted judgment Q 15 minute checks Increase to clozapine 325mg mg q.h.s.;will use ODT at first since pt tries to check it; will titrate back to home dose of 300 mg.? Patient does not like medication in the morning -Ordered clozapine level ANC 04/25 6.0 ANC 05/02 refused x2; will retry ANC 05/03 2.0 05/13: Continue current regimen and plans I spent minutes with the patient and/or on the patient floor today, greater than?50% of which was spent counseling/coordinating care. Reason for contiued inpatient stay Substantial Risk for: med/psych decompensation
[2022-05-13] MEDS: Nicotine Polacrilex 2 MG GUM 4 MG BUCCAL (10:13)
[2022-05-13 20:00] VITALS: BP 147/66; PULSE 77; RESP 18; O2SAT 97
--- NOTE | 2022-05-13 21:21 | PC.NURSE ---
Patient took HS medications, chewed them for some time and then spit in a cup and then ran to the bathroom and ran it under the sink. Unknown how much of the medication was taken.
--- NOTE | 2022-05-14 10:03 | HO.PSYCHPN ---
Subjective Subjective Date of Service: 05/14/22 Reason For Visit: psych eval Subjective Notes: Section 7 Healthcare Proxy: No Guardianship: No Medical Problems Affecting Mental Status: Yes (COVID+) Interim History: Patient was seen and discussed in rounds today. Records and plans were reviewed. He is in isolation because of his being COVID positive. He continues to be mostly medication noncompliant. It yesterday he took his antipsychotic but spit it out fairly quickly but the nurses thing he got some absorbed. I tried to talk to him and ask him the reason for refusal but he would not say much. He continues to be delusional. No violence. No changes were made today Medication Compliance: No Attending Groups: No Review of Systems Review of Systems Yes Unobtainable due to mental status Diagnostics Vital Signs (24Hr): Vital Signs - 24 hr 05/13/22 20:00 Pulse Rate 77 Respiratory Rate 18 Blood Pressure 147/66 H Pulse Oximetry 97 Oxygen Delivery Method Room Air BMI result Body Mass Index 21.0 Labs Results: 04/25/22 19:39 04/25/22 19:39 Medications Medications Current Medications Acetaminophen (Acetaminophen 325 Mg Tablet) 650 mg PO Q6H PRN PRN Reason: Headache/Pain Mild Scale (1-3) Last Admin: 05/10/22 21:37 Dose: 650 mg Al Hydroxide/Mg Hydroxide (Magnesium Hydrox/Alum Hydrox 30 Ml Oral.Susp) 30 ml PO Q6H PRN PRN Reason: Heartburn/Nausea Chlorpromazine HCl (Chlorpromazine Hcl 100 Mg Tablet) 100 mg PO QID PRN PRN Reason: agitation Clozapine 300 mg/ Clozapine 25 (mg) 325 mg PO BEDTIME EUGENIA Last Admin: 05/13/22 21:16 Dose: 325 mg Hydroxyzine HCl (Hydroxyzine Hcl 25 Mg Tablet) 25 mg PO Q6H PRN PRN Reason: Anxiety Ibuprofen (Ibuprofen 600 Mg Tablet) 600 mg PO Q6H PRN PRN Reason: mild pain Lorazepam (Lorazepam 1 Mg Tablet) 1 mg PO QID PRN PRN Reason: agitation;may give w thorazine Magnesium Hydroxide (Milk Of Magnesia 30 Ml Oral.Susp) 30 ml PO DAILY PRN PRN Reason: Constipation Nicotine Polacrilex (Nicotine Polacrilex 2 Mg Gum) 4 mg BUCCAL Q2H PRN PRN Reason: nicotine withdrawal Last Admin: 05/13/22 10:13 Dose: 4 mg Olanzapine (Olanzapine Odt 10 Mg Tab.Rapdis) 10 mg TRANSLINGU TID PRN PRN Reason: agitation Last Admin: 05/09/22 14:48 Dose: 10 mg Quetiapine Fumarate (Quetiapine Fumarate 50 Mg Tablet) 50 mg PO Q4H PRN PRN Reason: psychosis, agitation, anxiety Trazodone HCl (Trazodone Hcl 50 Mg Tablet) 50 mg PO BEDTIME PRN PRN Reason: Insomnia Allergies Allergies Allergy/AdvReac Type Severity Reaction Status Date / Time diphenhydramine Allergy Unknown unknown Verified 10/12/20 04:33 [From BENADRYL] haloperidol [From HALDOL] Allergy Unknown unknown Verified 10/12/20 04:33 paliperidone AdvReac Severe dystonia Verified 03/30/21 23:47 Assessment & Plan Assessment & Plan (1) Schizoaffective disorder, bipolar type: Status: Acute Code(s): F25.0 - Schizoaffective disorder, bipolar type Plan Jose is a 26 y.o. male with a history of schizoaffective disorder, bipolar type. Pt has hx of multiple previous inpatient admissions for psychotic sx, last on unit February 2022, command AH, internal preoccupation, paranoid ideations, and agitation; past hx of serious suicide attempt when psychotic. Pt presents To the emergency room after family called the police for a wellness check, with patient disorganized, wandering the streets at night, not eating in the face of medication non adherence. Patient is a limited historian. He is pleasant and friendly on admission, knowing this race and sports book writer. He says he stopped taking medications because he did have a refill. -patient has recently been willing to restart clozapine and once titrated back to home dose returns to baseline. Patient did try to pretend he took clozapine today but admitted he did not and said he will do so going forward. Hospital course 04/28 patient remains disorganized speech and behavior, intensely internally preoccupied and having constant dialogue with himself, unaware that others observe this; denies all psychiatric symptoms including auditory hallucinations. Has been taking clozapine 04/30 patient refused clozapine dose last night 04/29; he again refused at this morning but then reconsidered and said he would take it though when he took it, he clearly tried to remove it from his mouth however since it was disintegrating type, most of it seemed to be and just did. Later patient refused evening dose and said he does not care about being discharged, does not care about being hears for 6 months -today patient got 75 mg in the morning -nursing staff will try to offer again patient's bedtime dose, however if he continues to refuse taking it, will half the a lower dose again at some point soon 05/01 patient again initially refused clozapine but then agreed to take it; remains floridly psychotic 05/02 no change; patient refused blood draw; race and sports book writer discussed with pharmacy who agrees to continue medication even though he did not get blood drawn. Patient has been stable on this medication for months and has always had ANC's within normal limits; withholding this medication will only prolong and deepen his psychosis, making it all that much harder to get blood draws. Patient has a history of becoming a significant danger both to himself and others when decompensated. It is race and sports book writer's strong opinion at this time that the potential benefit for continuing clozapine titration far outweighs the potential risk. 05/03 patient repeatedly refused blood draw however eventually consented; he has also intermittently refuses vitals; patient refuses medications for while but then so far has eventually agreed to take nighttime medications though will try to spit them out when he thinks no one is looking. Staff keeps a close eye and general consensus is that the medication is getting ingested, however this is only happening because he is in a highly structured environment. Patient has no insight at all. Sometimes when he refuses medication, he replies that he does not care if it results in him being hospitalized for 6 months. Cell Assembly Pinner and team have ongoing discussions about what is best for patient. Given the fact that he can have a very dangerous behaviors when decompensated and patient repeatedly stops taking medications soon after discharge, team is considering whether patient needs admission to a long-term facility such as [facility] where he can be stabilized on medication and remained stable for a much longer duration; the hope would be that during this prolonged period of stabilization, patient's insight would improve and he would get accustomed to being stable and maybe even prefer it, thus increasing his chances of remained stable once back in the community. Will continue to monitor, assess and discuss 05/04 again refused clozapine last night; was willing to take it today. Patient remains floridly psychotic with poor insight. -Patient's mother reports that at home, patient was standing in front of the door way leading to the balcony and having a back and forth, responding to auditory hallucinations and was overheard saying just jump Filipe.. just do it to which Filipe would respond no Filipe don't and then again just do it -patient is very inconsistent with medication, often refusing it, refusing labs, then being willing to take it; however he has no insight about his need for medication and denies all psychiatric symptoms, including auditory hallucinations or even that he talks to himself, despite that he just did so in front of race and sports book writer or staff. Patient's refusal to his specific medication of clozapine is very problematic since missing doses, as few as 2 days in a row makes a person increasingly vulnerable to side effects and the need to keep restarting titration, making it difficult for patient to ever reach his therapeutic dose. Patient's ongoing inconsistency to refusal with medication and associated lab work demonstrate that in patient's own mind, he is not here for treatment and race and sports book writer decided to revoke patients CV. Team will petition the court for involuntary commitment due to his high risk of unsafe behaviors associated with his poor insight, judgment and inability to make safe healthy decisions for himself. Even at patient's baseline on therapeutic dose of clozapine, he remains internally preoccupied and without any insight into his psychiatric illness or need for medications. There remains strong consideration that patient may require long-term admission to more deeply stabilize. This was briefly discussed with patient who said I took my medication which he in fact did today; however patient is unable to understand that he constantly refuses it or admit that he tries to cheek it. 05/07/2022: No changes to current regimen the continue Clozaril as per treatment team 05/08 floridly manic and psychotic; increased psychomotor agitation, more in the milieu with disorganized behaviors -often patient starts to stabilize when reaching current clozapine dose, however no improvement thus far 05/09 floridly manic; disorganized in the milieu, pacing the halls laughing very loudly to himself; refused to meet with his child life assistant today saying he does not trust him; patient was found underneath his mattress saying he was hiding from the Iron Pourer. He then told staff he wants to stay on the unit. -race and sports book writer and team continue to discuss and agree that at this time, patient needs a long-term admission with a structured environment so that once stabilized, he'll be able to remain on stabilizing medications, become more accustomed to feeling stable; hopefully this will deepen his insight into his psychiatric illness illness and need for medication and thus not just be safe in the community, but be more successful and more able to enjoy his life. 05/10 though he seems to be taking his medication which is in disintegrating form, he remains floridly psychotic. Refuse to talk with race and sports book writer; race and sports book writer tried to explain court however patient would not engage or even listen telling race and sports book writer to go way 05/11 remains psychotic. Yesterday after patient received be a medication, he ran full speed down the hallway into his bathroom and close the door; would not respond to staff and had the water running, ostensibly to wash out the medication. Did not want to talk about Court. Discussed case with contracts attorney and postponement agreed upon 05/12 Cell Assembly Pinner explained that team feels he needs admission to a state facility for longer-term admission given the fact that his pattern is to stop taking his medications soon after discharge and becomes unsafe. Patient said no, I'm not going to do that...Not going to a state facility. PLAn: CV-revlindsay (pt informed but refused to discuss; mother informed who agreed and strongly felt patient needed admission to state facility) Will petition the court for involuntary commitment and substituted judgment Q 15 minute checks Increase to clozapine 325mg mg q.h.s.;will use ODT at first since pt tries to check it; will titrate back to home dose of 300 mg.? Patient does not like medication in the morning -Ordered clozapine level ANC 04/25 6.0 ANC 05/02 refused x2; will retry ANC 05/03 2.0 05/13: Continue current regimen and plans 05/14: Continue current plans and regimen I spent minutes with the patient and/or on the patient floor today, greater than?50% of which was spent counseling/coordinating care. Reason for contiued inpatient stay Substantial Risk for: med/psych decompensation
[2022-05-14] MEDS: Nicotine Polacrilex 2 MG GUM 4 MG BUCCAL (21:08)
[2022-05-15] MEDS: Nicotine Polacrilex 2 MG GUM 4 MG BUCCAL (02:29)
[2022-05-15 06:00] VITALS: RESP 17
--- NOTE | 2022-05-15 09:27 | HO.PSYCHPN ---
Subjective Subjective Date of Service: 05/15/22 Reason For Visit: psych eval Interim History: Patient remains psychotic, manic, disorganized. Patient up all night. Has refused clozapine for the past 2 days. Sexually inappropriate and asked female staff if she would help him masturbate. Remains internally preoccupied, self dialoguing and responding to internal stimuli. Not compliant with COVID precautions and needing frequent redirections. Fuel Verification Technician met with patient who was self-dialoguing on approach, but stopped as he saw business writer. He said that he is good and denies any psychiatric symptoms. Patient reports that he is feeling physically better and denies any COVID symptoms. Patient an a momentary lucid back and forth said he had COVID before which was miserable and this time around much better. Fuel Verification Technician asked why he stopped taking his clozapine and patient said that he does not need medication and that he is doing good. Fuel Verification Technician further inquired with concern and patient said well I have been cheeking it anyway. Fuel Verification Technician asked how he did so with the disintegrating type and he said I have my ways. He maintained that he does not need any medication. Fuel Verification Technician again brought up the topic of state hospital and patient again said no... I know they want me to go to a state hospital but no... He laughed and said I am already in a state and already in a hospital so I'm all good with that. Fuel Verification Technician who wearing a necklace with a pendant; upon business writer's inquiry patient said that it was his sperm but then laughed and said he was just making a joke and showed business writer that it was a character of a ghost. As conversation concluded, patient went immediately back to intensely self dialoguing; even in another room with door closed, business writer could hear patient going inbetween laughing out loud hysterically and angrily responding to internal stimulation dialogue yelling things like shut up old man, and having an angry conversation with imagined someone. Mental Status Exam Mental Status Exam Narrative: Pt is alert and oriented; behavior is disorganized, guarded and momentarily cooperative; excessively silly or angry, laughing hysterically or yelling out loud in milue responding to internal stimuli; patient is not in distress; dressed in casual attire, shaved; mood good affect either constricted or expansive; adequate eye contact poor; Speech is mostly loud volume; increased psychomotor agitation; some retardation also intermittently present; thought process is goal oriented when wants something specific, but otherwise, disorganized with thought blocking; Thought content is on undisclosed internally preoccupied thoughts; denies SI/HI. Denies AH but is absorbed in responding to internal stimuli and self-dialoguing, laughing to himself, asking/answering self questions throughout the day; Patients insight and judgment impaired. Diagnostics Vital Signs (24Hr): BMI result Body Mass Index 21.0 Labs Results: 04/25/22 19:39 04/25/22 19:39 Medications Medications Current Medications Acetaminophen (Acetaminophen 325 Mg Tablet) 650 mg PO Q6H PRN PRN Reason: Headache/Pain Mild Scale (1-3) Last Admin: 05/10/22 21:37 Dose: 650 mg Al Hydroxide/Mg Hydroxide (Magnesium Hydrox/Alum Hydrox 30 Ml Oral.Susp) 30 ml PO Q6H PRN PRN Reason: Heartburn/Nausea Chlorpromazine HCl (Chlorpromazine Hcl 100 Mg Tablet) 100 mg PO QID PRN PRN Reason: agitation Clozapine 300 mg/ Clozapine 25 (mg) 325 mg PO BEDTIME EUGENIA Last Admin: 05/14/22 21:15 Dose: Not Given Hydroxyzine HCl (Hydroxyzine Hcl 25 Mg Tablet) 25 mg PO Q6H PRN PRN Reason: Anxiety Ibuprofen (Ibuprofen 600 Mg Tablet) 600 mg PO Q6H PRN PRN Reason: mild pain Lorazepam (Lorazepam 1 Mg Tablet) 1 mg PO QID PRN PRN Reason: agitation;may give w thorazine Magnesium Hydroxide (Milk Of Magnesia 30 Ml Oral.Susp) 30 ml PO DAILY PRN PRN Reason: Constipation Nicotine Polacrilex (Nicotine Polacrilex 2 Mg Gum) 4 mg BUCCAL Q2H PRN PRN Reason: nicotine withdrawal Last Admin: 05/15/22 02:29 Dose: 4 mg Olanzapine (Olanzapine Odt 10 Mg Tab.Rapdis) 10 mg TRANSLINGU TID PRN PRN Reason: agitation Last Admin: 05/09/22 14:48 Dose: 10 mg Quetiapine Fumarate (Quetiapine Fumarate 50 Mg Tablet) 50 mg PO Q4H PRN PRN Reason: psychosis, agitation, anxiety Trazodone HCl (Trazodone Hcl 50 Mg Tablet) 50 mg PO BEDTIME PRN PRN Reason: Insomnia Allergies Allergies Allergy/AdvReac Type Severity Reaction Status Date / Time diphenhydramine Allergy Unknown unknown Verified 10/12/20 04:33 [From BENADRYL] haloperidol [From HALDOL] Allergy Unknown unknown Verified 10/12/20 04:33 paliperidone AdvReac Severe dystonia Verified 03/30/21 23:47 Assessment & Plan Assessment & Plan (1) Schizoaffective disorder, bipolar type: Status: Acute Code(s): F25.0 - Schizoaffective disorder, bipolar type Plan Jose is a 26 y.o. male with a history of schizoaffective disorder, bipolar type. Pt has hx of multiple previous inpatient admissions for psychotic sx, last on unit February 2022, command AH, internal preoccupation, paranoid ideations, and agitation; past hx of serious suicide attempt when psychotic. Pt presents To the emergency room after family called the police for a wellness check, with patient disorganized, wandering the streets at night, not eating in the face of medication non adherence. Patient is a limited historian. He is pleasant and friendly on admission, knowing this business writer. He says he stopped taking medications because he did have a refill. -patient has recently been willing to restart clozapine and once titrated back to home dose returns to baseline. Patient did try to pretend he took clozapine today but admitted he did not and said he will do so going forward. Hospital course 04/28 patient remains disorganized speech and behavior, intensely internally preoccupied and having constant dialogue with himself, unaware that others observe this; denies all psychiatric symptoms including auditory hallucinations. Has been taking clozapine 04/30 patient refused clozapine dose last night 04/29; he again refused at this morning but then reconsidered and said he would take it though when he took it, he clearly tried to remove it from his mouth however since it was disintegrating type, most of it seemed to be and just did. Later patient refused evening dose and said he does not care about being discharged, does not care about being hears for 6 months -today patient got 75 mg in the morning -nursing staff will try to offer again patient's bedtime dose, however if he continues to refuse taking it, will half the a lower dose again at some point soon 05/01 patient again initially refused clozapine but then agreed to take it; remains floridly psychotic 05/02 no change; patient refused blood draw; business writer discussed with pharmacy who agrees to continue medication even though he did not get blood drawn. Patient has been stable on this medication for months and has always had ANC's within normal limits; withholding this medication will only prolong and deepen his psychosis, making it all that much harder to get blood draws. Patient has a history of becoming a significant danger both to himself and others when decompensated. It is business writer's strong opinion at this time that the potential benefit for continuing clozapine titration far outweighs the potential risk. 05/03 patient repeatedly refused blood draw however eventually consented; he has also intermittently refuses vitals; patient refuses medications for while but then so far has eventually agreed to take nighttime medications though will try to spit them out when he thinks no one is looking. Staff keeps a close eye and general consensus is that the medication is getting ingested, however this is only happening because he is in a highly structured environment. Patient has no insight at all. Sometimes when he refuses medication, he replies that he does not care if it results in him being hospitalized for 6 months. Fuel Verification Technician and team have ongoing discussions about what is best for patient. Given the fact that he can have a very dangerous behaviors when decompensated and patient repeatedly stops taking medications soon after discharge, team is considering whether patient needs admission to a long-term facility such as [facility] where he can be stabilized on medication and remained stable for a much longer duration; the hope would be that during this prolonged period of stabilization, patient's insight would improve and he would get accustomed to being stable and maybe even prefer it, thus increasing his chances of remained stable once back in the community. Will continue to monitor, assess and discuss 05/04 again refused clozapine last night; was willing to take it today. Patient remains floridly psychotic with poor insight. -Patient's mother reports that at home, patient was standing in front of the door way leading to the balcony and having a back and forth, responding to auditory hallucinations and was overheard saying just jump Filipe.. just do it to which Filipe would respond no Filipe don't and then again just do it -patient is very inconsistent with medication, often refusing it, refusing labs, then being willing to take it; however he has no insight about his need for medication and denies all psychiatric symptoms, including auditory hallucinations or even that he talks to himself, despite that he just did so in front of business writer or staff. Patient's refusal to his specific medication of clozapine is very problematic since missing doses, as few as 2 days in a row makes a person increasingly vulnerable to side effects and the need to keep restarting titration, making it difficult for patient to ever reach his therapeutic dose. Patient's ongoing inconsistency to refusal with medication and associated lab work demonstrate that in patient's own mind, he is not here for treatment and business writer decided to revoke patients CV. Team will petition the court for involuntary commitment due to his high risk of unsafe behaviors associated with his poor insight, judgment and inability to make safe healthy decisions for himself. Even at patient's baseline on therapeutic dose of clozapine, he remains internally preoccupied and without any insight into his psychiatric illness or need for medications. There remains strong consideration that patient may require long-term admission to more deeply stabilize. This was briefly discussed with patient who said I took my medication which he in fact did today; however patient is unable to understand that he constantly refuses it or admit that he tries to cheek it. 05/07/2022: No changes to current regimen the continue Clozaril as per treatment team 05/08 floridly manic and psychotic; increased psychomotor agitation, more in the milieu with disorganized behaviors -often patient starts to stabilize when reaching current clozapine dose, however no improvement thus far 05/09 floridly manic; disorganized in the milieu, pacing the halls laughing very loudly to himself; refused to meet with his radio division captain today saying he does not trust him; patient was found underneath his mattress saying he was hiding from the Parts Delivery Driver. He then told staff he wants to stay on the unit. -business writer and team continue to discuss and agree that at this time, patient needs a long-term admission with a structured environment so that once stabilized, he'll be able to remain on stabilizing medications, become more accustomed to feeling stable; hopefully this will deepen his insight into his psychiatric illness illness and need for medication and thus not just be safe in the community, but be more successful and more able to enjoy his life. 05/10 though he seems to be taking his medication which is in disintegrating form, he remains floridly psychotic. Refuse to talk with business writer; business writer tried to explain court however patient would not engage or even listen telling business writer to go way 05/11 remains psychotic. Yesterday after patient received be a medication, he ran full speed down the hallway into his bathroom and close the door; would not respond to staff and had the water running, ostensibly to wash out the medication. Did not want to talk about Court. Discussed case with deputy prosecuting attorney and postponement agreed upon 05/12 Fuel Verification Technician explained that team feels he needs admission to a state facility for longer-term admission given the fact that his pattern is to stop taking his medications soon after discharge and becomes unsafe. Patient said no, I'm not going to do that...Not going to a state facility. 05/15 floridly psychotic and manic; refusing medications saying he does not need any; Regarding refusing medication, Says he has been cheeking his medication and not taking it anyway. Fuel Verification Technician again discussed need for longer term admission at [facility]; patient understands teams plan for long-term admission at a [place] [id number] facility and says he refuses to go. Patient sexually inappropriate with female staff asking for help masturbating. Fuel Verification Technician and team continue to assert that patient needs long-term admission for his safety as he always goes off his medications soon after discharge and becomes unsafe -business writer and team have suspected patient has been cheeking his medications; however it is disintegrating type so it is likely at least some amount gets in. However this makes it difficult to know how to order current dose of clozapine. There is no other medication, despite many trials, that has been effective for patient (7 other antipsychotics tried). Will lower the dose and keep trying to get patient to take it, expecting that some will get in his system and help him from further decompensating. Patient however has no insight at all and has history of becoming wildly uncontrollable and unsafe when decompensated. PLAn: CV-revovked (pt informed but refused to discuss; mother informed who agreed and strongly felt patient needed admission to state facility) Will petition the court for involuntary commitment and substituted judgment Q 15 minute checks Lower clozapine to 200mg (down from 325mg); pt has refused doses for past 2 days; he also says he's been cheeking meds prior to this; while business writer does not doubt patient has been cheecking meds, the fact that it is disintegrating makes it most likely that some amount of medication is getting in; will continue to try and motivate patient to take medication; Clozapine normally well tolerated by patient and ANC's have always been WNL -clozapine level: pending ANC 04/25 6.0 ANC 05/02 refused x2; will retry ANC 05/03 2.0 ANC 05/09 3.0 ANC 05/11 4.7 MED TRIALS: Paliperidone: dystonia Haldol: dytonia Fluphenazine: severe dytonia olanzapine: limited effect (at therapuetic dose/duration) Seroquel: sedates, but does not treat. Abilify: no effect (at therapuetic dose/duration) Ziprasidone: no effect (at therapuetic dose/duration) Depakote: no effect (though not adequate trial) I spent minutes with the patient and/or on the patient floor today, greater than?50% of which was spent counseling/coordinating care. Patient educated on: diagnosis and medication risk/benefits Informed Consent: does not understand Reason for contiued inpatient stay Substantial Risk for: harm to self and inability to function
[2022-05-15 19:30] VITALS: BP 134/68; PULSE 87; RESP 18; O2SAT 98
[2022-05-16 10:00] VITALS: RESP 18
--- NOTE | 2022-05-16 11:18 | PC.NURSE ---
Patient refused his lab draws on two seperate attempts as well as refused AM dose of Lorazapam. MD Light notified.
--- NOTE | 2022-05-16 13:01 | PC.NURSE ---
Patient agitated when redirected back to room d/t covid isolation protocol. Patient stated i will fucking show you . Patient then slammed door to bedroom.
--- NOTE | 2022-05-16 13:46 | PC.NURSE ---
Pt out of his room, when asked to go back into his room pt states that gurjit told me I can't go in there until its exterminated. Theres bugs coming out of the draws and baskets, theres bugs everywhere, I can't be in there while pointing to barrier. Pt using multiple voices while speaking to RN, pt states its okay I left the covid in there, its not in me anymore . PT laughing and muttering to himself while speaking with RN.
--- NOTE | 2022-05-16 14:59 | P.PNPSI_ITS ---
Subjective Subjective Date of Service: 05/16/22 Reason For Visit: psych eval Interim History: Supply Chain Development Manager knocked on patient's door and when opened patient said in a serious tone with a glare do not knock on my door he stared for a moment and then laughed hysterically but then suddenly stopped, stared again and said do not knock on my door that he said I am just messing with you. Supply Chain Development Manager asked again about medication and patient says nope hide in take any. He goes I think you need medication. I think you should stick it in your ear and then watch it fall out... then something about learn from him how to cheek it. In-between keno writer / runner's conversation with patient, he would turn and continue his dialogue with internal stimulus, asking and answering questions; patient sometimes using different voices and saying Filipe... Followed by a question to which he answers. Patient's behaviors are increasing, he refuses to follow instructions for COVID precautions, refuses Ativan, has started making threatening comments to staff Mental Status Exam Mental Status Exam Narrative: Pt is alert and oriented; behavior is disorganized, guarded and momentarily cooperative; excessively silly or angry, laughing hysterically or yelling out loud in milue responding to internal stimuli; patient is not in distress; dressed in casual attire, shaved; mood good affect either constricted or expansive; adequate eye contact poor; Speech is mostly loud volume; increased psychomotor agitation; some retardation also intermittently present; thought process is goal oriented when wants something specific, but otherwise, disorganized with thought blocking; Thought content is on undisclosed internally preoccupied thoughts; denies SI/HI. Denies AH but is absorbed in responding to internal stimuli and self-dialoguing, laughing to himself, asking/answering self questions throughout the day; Patients insight and judgment impaired. Diagnostics Vital Signs (24Hr): Vital Signs - 24 hr 05/15/22 19:30 05/16/22 10:00 Pulse Rate 87 Respiratory Rate 18 18 Blood Pressure 134/68 Pulse Oximetry 98 Oxygen Delivery Method Room Air BMI result Body Mass Index 21.0 Labs Results: 04/25/22 19:39 04/25/22 19:39 Medications Medications Current Medications Acetaminophen (Acetaminophen 325 Mg Tablet) 650 mg PO Q6H PRN PRN Reason: Headache/Pain Mild Scale (1-3) Last Admin: 05/10/22 21:37 Dose: 650 mg Al Hydroxide/Mg Hydroxide (Magnesium Hydrox/Alum Hydrox 30 Ml Oral.Susp) 30 ml PO Q6H PRN PRN Reason: Heartburn/Nausea Chlorpromazine HCl (Chlorpromazine Hcl 100 Mg Tablet) 100 mg PO QID PRN PRN Reason: agitation Clozapine (Clozapine Odt 100 Mg Tab.Rapdis) 200 mg PO BEDTIME [facility] Last Admin: 05/15/22 21:00 Dose: Not Given Hydroxyzine HCl (Hydroxyzine Hcl 25 Mg Tablet) 25 mg PO Q6H PRN PRN Reason: Anxiety Ibuprofen (Ibuprofen 600 Mg Tablet) 600 mg PO Q6H PRN PRN Reason: mild pain Lorazepam (Lorazepam 1 Mg Tablet) 1 mg PO QID PRN PRN Reason: agitation;may give w thorazine Lorazepam (Lorazepam 1 Mg Tablet) 2 mg PO TID [facility] Last Admin: 05/16/22 10:01 Dose: Not Given Magnesium Hydroxide (Milk Of Magnesia 30 Ml Oral.Susp) 30 ml PO DAILY PRN PRN Reason: Constipation Nicotine Polacrilex (Nicotine Polacrilex 2 Mg Gum) 4 mg BUCCAL Q2H PRN PRN Reason: nicotine withdrawal Last Admin: 05/15/22 02:29 Dose: 4 mg Olanzapine (Olanzapine Odt 10 Mg Tab.Rapdis) 10 mg TRANSLINGU TID PRN PRN Reason: agitation Last Admin: 05/09/22 14:48 Dose: 10 mg Quetiapine Fumarate (Quetiapine Fumarate 50 Mg Tablet) 50 mg PO Q4H PRN PRN Reason: psychosis, agitation, anxiety Trazodone HCl (Trazodone Hcl 50 Mg Tablet) 50 mg PO BEDTIME PRN PRN Reason: Insomnia Allergies Allergies Allergy/AdvReac Type Severity Reaction Status Date / Time diphenhydramine Allergy Unknown unknown Verified 10/12/20 04:33 [From BENADRYL] haloperidol [From HALDOL] Allergy Unknown unknown Verified 10/12/20 04:33 paliperidone AdvReac Severe dystonia Verified 03/30/21 23:47 Assessment & Plan Assessment & Plan (1) Schizoaffective disorder, bipolar type: Status: Acute Code(s): F25.0 - Schizoaffective disorder, bipolar type Plan Jose is a 26 y.o. male with a history of schizoaffective disorder, bipolar type. Pt has hx of multiple previous inpatient admissions for psychotic sx, last on unit February 2022, command AH, internal preoccupation, paranoid ideations, and agitation; past hx of serious suicide attempt when psychotic. Pt presents To the emergency room after family called the police for a wellness check, with patient disorganized, wandering the streets at night, not eating in the face of medication non adherence. Patient is a limited historian. He is pleasant and friendly on admission, knowing this keno writer / runner. He says he stopped taking medications because he did have a refill. -patient has recently been willing to restart clozapine and once titrated back to home dose returns to baseline. Patient did try to pretend he took clozapine today but admitted he did not and said he will do so going forward. Hospital course 04/28 patient remains disorganized speech and behavior, intensely internally preoccupied and having constant dialogue with himself, unaware that others observe this; denies all psychiatric symptoms including auditory hallucinations. Has been taking clozapine 04/30 patient refused clozapine dose last night 04/29; he again refused at this morning but then reconsidered and said he would take it though when he took it, he clearly tried to remove it from his mouth however since it was disintegrating type, most of it seemed to be and just did. Later patient refused evening dose and said he does not care about being discharged, does not care about being hears for 6 months -today patient got 75 mg in the morning -nursing staff will try to offer again patient's bedtime dose, however if he continues to refuse taking it, will half the a lower dose again at some point soon 05/01 patient again initially refused clozapine but then agreed to take it; remains floridly psychotic 05/02 no change; patient refused blood draw; keno writer / runner discussed with pharmacy who agrees to continue medication even though he did not get blood drawn. Patient has been stable on this medication for months and has always had ANC's within normal limits; withholding this medication will only prolong and deepen his psychosis, making it all that much harder to get blood draws. Patient has a history of becoming a significant danger both to himself and others when decompensated. It is keno writer / runner's strong opinion at this time that the potential benefit for continuing clozapine titration far outweighs the potential risk. 05/03 patient repeatedly refused blood draw however eventually consented; he has also intermittently refuses vitals; patient refuses medications for while but then so far has eventually agreed to take nighttime medications though will try to spit them out when he thinks no one is looking. Staff keeps a close eye and general consensus is that the medication is getting ingested, however this is only happening because he is in a highly structured environment. Patient has no insight at all. Sometimes when he refuses medication, he replies that he does not care if it results in him being hospitalized for 6 months. Supply Chain Development Manager and team have ongoing discussions about what is best for patient. Given the fact that he can have a very dangerous behaviors when decompensated and patient repeatedly stops taking medications soon after discharge, team is considering whether patient needs admission to a long-term facility such as [facility] where he can be stabilized on medication and remained stable for a much longer duration; the hope would be that during this prolonged period of stabilization, patient's insight would improve and he would get accustomed to being stable and maybe even prefer it, thus increasing his chances of remained stable once back in the community. Will continue to monitor, assess and discuss 05/04 again refused clozapine last night; was willing to take it today. Patient remains floridly psychotic with poor insight. -Patient's mother reports that at home, patient was standing in front of the door way leading to the balcony and having a back and forth, responding to auditory hallucinations and was overheard saying just jump Filipe.. just do it to which Filipe would respond no Filipe don't and then again just do it -patient is very inconsistent with medication, often refusing it, refusing labs, then being willing to take it; however he has no insight about his need for medication and denies all psychiatric symptoms, including auditory hallucinations or even that he talks to himself, despite that he just did so in front of keno writer / runner or staff. Patient's refusal to his specific medication of clozapine is very problematic since missing doses, as few as 2 days in a row makes a person increasingly vulnerable to side effects and the need to keep restarting titration, making it difficult for patient to ever reach his therapeutic dose. Patient's ongoing inconsistency to refusal with medication and associated lab work demonstrate that in patient's own mind, he is not here for treatment and keno writer / runner decided to revoke patients CV. Team will petition the court for involuntary commitment due to his high risk of unsafe behaviors associated with his poor insight, judgment and inability to make safe healthy decisions for himself. Even at patient's baseline on therapeutic dose of clozapine, he remains internally preoccupied and without any insight into his ps ychiatric illness or need for medications. There remains strong consideration that patient may require long-term admission to more deeply stabilize. This was briefly discussed with patient who said I took my medication which he in fact did today; however patient is unable to understand that he constantly refuses it or admit that he tries to cheek it. 05/07/2022: No changes to current regimen the continue Clozaril as per treatment team 05/08 floridly manic and psychotic; increased psychomotor agitation, more in the milieu with disorganized behaviors -often patient starts to stabilize when reaching current clozapine dose, however no improvement thus far 05/09 floridly manic; disorganized in the milieu, pacing the halls laughing very loudly to himself; refused to meet with his nurse research today saying he does not trust him; patient was found underneath his mattress saying he was hiding from the [employer]. He then told staff he wants to stay on the unit. -keno writer / runner and team continue to discuss and agree that at this time, patient needs a long-term admission with a structured environment so that once stabilized, he'll be able to remain on stabilizing medications, become more accustomed to fe eling stable; hopefully this will deepen his insight into his psychiatric illness illness and need for medication and thus not just be safe in the community, but be more successful and more able to enjoy his life. 05/10 though he seems to be taking his medication which is in disintegrating form, he remains floridly psychotic. Refuse to talk with keno writer / runner; keno writer / runner tried to explain court however patient would not engage or even listen telling keno writer / runner to go way 05/11 remains psychotic. Yesterday after patient received be a medication, he ran full speed down the hallway into his bathroom and close the door; would not respond to staff and had the water running, ostensibly to wash out the medicatio n. Did not want to talk about Court. Discussed case with mergers and acquisitions attorney and postponement agreed upon 05/12 Supply Chain Development Manager explained that team feels he needs admission to a state facility for longer-term admission given the fact that his pattern is to stop taking his medications soon after discharge and becomes unsafe. Patient said no, I'm not going to do that...Not going to a state facility. 05/15 floridly psychotic and manic; refusing medications saying he does not need any; Regarding refusing medication, Says he has been cheeking his medication and not taking it anyway. Supply Chain Development Manager again discussed need for longer term admission at [facility]; patient understands teams plan for long-term admission at a [place] [id number] facility and says he refuses to go. Patient sexually inappropriate with female staff asking for help masturbating. Supply Chain Development Manager and team continue to assert that patient needs long-term admission for his safety as he always goes off his medications soon after discharge and becomes unsafe -keno writer / runner and team have suspected patient has been cheeking his medications; however it is disintegrating type so it is likely at least some amount gets in. However this makes it difficult to know how to order current dose of clozapine. There is no other medication, despite many trials, that has been effective for patient (7 other antipsychotics tried). Will lower the dose and keep trying to get patient to take it, expecting that some will get in his system and help him from further decompensating. Patient however has no insight at all and has history of becoming wildly uncontrollable and unsafe when decompensated. 05/16 continues to refuse all medication and keno writer / runner has had to lower clozapine dose so as to avoid adverse event, on the off chance he is willing to take it. Refuses Ativan. Continues to be floridly manic and psychotic with disorganized behavior and speech. Patient's behaviors are getting more threatening and he is very difficult to redirect. Supply Chain Development Manager discussed case with Dr. Jerez and other FABRICATION TECHNICIAN. In the event that patient becomes agitated, unsafe and needs medication restraint, keno writer / runner recommends trying Thorazine 100+ mg with Ativan and Cogentin since this medication has not been tried before and most others cause severe dystonia; also Thorazine is a low potency medications similar to Seroquel which has been sedating for him in the past (and less likely to cause dystonia); Zyprexa is another option, but has limited effect in past). PLAn: CV-revovked (pt informed but refused to discuss; mother informed who agreed and strongly felt patient needed admission to state facility) Will petition the court for involuntary commitment and substituted judgment Q 15 minute checks -Further Lower clozapine to 50mg (down from 325mg); pt has refused doses for past several days and says he's been cheeking it prior to this -Ativan 2mg TId since patient said he would only take Ativan and this medication might temper his manic, disorganized behavior; however patient has been refusing this as well If patient requires IM recommend: -Thorazine 100mg (or more) -Ativan 2mg -Congentin 1mg (patient has hx of severe dystonic reactions) -clozapine level: pending ANC 04/25 6.0 ANC 05/02 refused x2; will retry ANC 05/03 2.0 ANC 05/09 3.0 ANC 05/11 4.7 MED TRIALS: Paliperidone: dystonia Haldol: dytonia Fluphenazine: severe dytonia olanzapine: limited effect (at therapuetic dose/duration) Seroquel: sedates, but does not treat. Abilify: no effect (at therapuetic dose/duration) Ziprasidone: no effect (at therapuetic dose/duration) Depakote: no effect (though not adequate trial) I spent minutes with the patient and/or on the patient floor today, greater than?50% of which was spent counseling/coordinating care. Patient educated on: diagnosis and medication risk/benefits Informed Consent: does not understand Reason for contiued inpatient stay Substantial Risk for: harm to self, harm to others and inability to function
[2022-05-16 18:02] LABS: Clozapine (Clozaril) <10 mcg/L; Norclozapine <10 mcg/L (25-400)
[2022-05-17] MEDS: cloZAPine 25 MG TABLET 50 MG PO ×2 (00:45→22:39)
[2022-05-17] MEDS: chlorproMAZINE HCl 100 MG TABLET PO (00:46)
[2022-05-17] MEDS: LORazepam 1 MG TABLET 2 MG PO ×2 (00:48→22:38)
--- NOTE | 2022-05-17 00:49 | PC.NURSE ---
Pt became agitated after being redirected to follow covid isolation precautions. Made threats of violence against RN and others. Pt appears to be having an internal conversation and fighting with himself over how to act. Pt refusing redirection, making continued threats. Offered scheduled and prn medication but refused. Attempted again with an RN who has a good rapport with Filipe, and was somewhat successful. Pt took meds after much encouragement but cheeked them. Pt was asked to swallow the pills or spit them out, he appeared to swallow some and spit some into his cup of tea, due to the dark color of the tea it could not be determined which meds were spat out. Pt apologetic in one voice, appearing to continue to fight with another voice in his head. Made verbal agreement to adhere to covid isolation precautions and not make threats to staff. Pt stated he was upset because his room has not been cleaned and he needs clean linens. He was provided clean linens and dirty items removed from his room. He appeared with brighter affect, though still responding to internal stimuli. Will closely monitor for further behavioral concerns.
--- NOTE | 2022-05-17 14:31 | P.PNPSI_ITS ---
Subjective Subjective Date of Service: 05/17/22 Reason For Visit: psych eval Interim History: pt standing nihis room talking to himself. without turning instructed MD to leave his room. MD identified himself as MD and informed pt that Dr. Light was away today and I was filling in for him. pt expressed negative sentiments, using curse words, regarding Dr. Light and informed this sba underwriter he did not care to meet with any doctors and once again, with moderate irritation in his voice, instructed MD to leave his room and close the door. MD complied with pt's expressed wish. per staff +RIS. not compliant with redirection. disorganized, refusing blood draws and ativan. aggressive on eves, a code was nearly called. staff from , with whom pt has better rapport, came down and spoke with him for quite some time and he then took thorazine, ativan, and clozapine and slept after midnight. Mental Status Exam Mental Status Exam Narrative: Appropriately dressed. Fair hygiene. Internally preoccupied. Appears irritable and slightly agitated. No SI HI expressed. Insight and judgment limited Diagnostics Vital Signs (24Hr): BMI result Body Mass Index 21.0 Labs Results: 04/25/22 19:39 04/25/22 19:39 Labs: Laboratory Results - last 48 hr 05/11/22 08:31 Clozapine <10 Norclozapine <10 Medications Medications Current Medications Acetaminophen (Acetaminophen 325 Mg Tablet) 650 mg PO Q6H PRN PRN Reason: Headache/Pain Mild Scale (1-3) Last Admin: 05/10/22 21:37 Dose: 650 mg Al Hydroxide/Mg Hydroxide (Magnesium Hydrox/Alum Hydrox 30 Ml Oral.Susp) 30 ml PO Q6H PRN PRN Reason: Heartburn/Nausea Chlorpromazine HCl (Chlorpromazine Hcl 100 Mg Tablet) 100 mg PO QID PRN PRN Reason: agitation Last Admin: 05/17/22 00:46 Dose: 100 mg Clozapine (Clozapine 25 Mg Tablet) 50 mg PO BEDTIME EUGENIA Last Admin: 05/17/22 00:45 Dose: 50 mg Hydroxyzine HCl (Hydroxyzine Hcl 25 Mg Tablet) 25 mg PO Q6H PRN PRN Reason: Anxiety Ibuprofen (Ibuprofen 600 Mg Tablet) 600 mg PO Q6H PRN PRN Reason: mild pain Lorazepam (Lorazepam 1 Mg Tablet) 1 mg PO QID PRN PRN Reason: agitation;may give w thorazine Lorazepam (Lorazepam 1 Mg Tablet) 2 mg PO TID EUGENIA Last Admin: 05/17/22 13:52 Dose: Not Given Magnesium Hydroxide (Milk Of Magnesia 30 Ml Oral.Susp) 30 ml PO DAILY PRN PRN Reason: Constipation Nicotine Polacrilex (Nicotine Polacrilex 2 Mg Gum) 4 mg BUCCAL Q2H PRN PRN Reason: nicotine withdrawal Last Admin: 05/15/22 02:29 Dose: 4 mg Olanzapine (Olanzapine Odt 10 Mg Tab.Rapdis) 10 mg TRANSLINGU TID PRN PRN Reason: agitation Last Admin: 05/09/22 14:48 Dose: 10 mg Quetiapine Fumarate (Quetiapine Fumarate 50 Mg Tablet) 50 mg PO Q4H PRN PRN Reason: psychosis, agitation, anxiety Trazodone HCl (Trazodone Hcl 50 Mg Tablet) 50 mg PO BEDTIME PRN PRN Reason: Insomnia Allergies Allergies Allergy/AdvReac Type Severity Reaction Status Date / Time diphenhydramine Allergy Unknown unknown Verified 10/12/20 04:33 [From BENADRYL] haloperidol [From HALDOL] Allergy Unknown unknown Verified 10/12/20 04:33 paliperidone AdvReac Severe dystonia Verified 03/30/21 23:47 Assessment & Plan Assessment & Plan (1) Schizoaffective disorder, bipolar type: Status: Acute Code(s): F25.0 - Schizoaffective disorder, bipolar type Plan Jose is a 26 y.o. male with a history of schizoaffective disorder, bipolar type. Pt has hx of multiple previous inpatient admissions for psychotic sx, last on unit February 2022, command AH, internal preoccupation, paranoid ideations, and agitation; past hx of serious suicide attempt when psychotic. Pt presents To the emergency room after family called the police for a wellness check, with patient disorganized, wandering the streets at night, not eating in the face of medication non adherence. Patient is a limited historian. He is pleasant and friendly on admission, knowing this sba underwriter. He says he stopped taking medications because he did have a refill. -patient has recently been willing to restart clozapine and once titrated back to home dose returns to baseline. Patient did try to pretend he took clozapine today but admitted he did not and said he will do so going forward. Hospital course 04/28 patient remains disorganized speech and behavior, intensely internally preoccupied and having constant dialogue with himself, unaware that others observe this; denies all psychiatric symptoms including auditory hallucinations. Has been taking clozapine 04/30 patient refused clozapine dose last night 04/29; he again refused at this morning but then reconsidered and said he would take it though when he took it, he clearly tried to remove it from his mouth however since it was disintegrating type, most of it seemed to be and just did. Later patient refused evening dose and said he does not care about being discharged, does not care about being hears for 6 months -today patient got 75 mg in the morning -nursing staff will try to offer again patient's bedtime dose, however if he continues to refuse taking it, will half the a lower dose again at some point soon 05/01 patient again initially refused clozapine but then agreed to take it; remains floridly psychotic 05/02 no change; patient refused blood draw; sba underwriter discussed with pharmacy who agrees to continue medication even though he did not get blood drawn. Patient has been stable on this medication for months and has always had ANC's within normal limits; withholding this medication will only prolong and deepen his psychosis, making it all that much harder to get blood draws. Patient has a history of becoming a significant danger both to himself and others when decompensated. It is sba underwriter's strong opinion at this time that the potential benefit for continuing clozapine titration far outweighs the potential risk. 05/03 patient repeatedly refused blood draw however eventually consented; he has also intermittently refuses vitals; patient refuses medications for while but then so far has eventually agreed to take nighttime medications though will try to spit them out when he thinks no one is looking. Staff keeps a close eye and general consensus is that the medication is getting ingested, however this is only happening because he is in a highly structured environment. Patient has no insight at all. Sometimes when he refuses medication, he replies that he does not care if it results in him being hospitalized for 6 months. Refrigeration Service Technician and team have ongoing discussions about what is best for patient. Given the fact that he can have a very dangerous behaviors when decompensated and patient repeatedly stops taking medications soon after discharge, team is considering whether patient needs admission to a long-term facility such as [facility] where he can be stabilized on medication and remained stable for a much longer duration; the ho pe would be that during this prolonged period of stabilization, patient's insight would improve and he would get accustomed to being stable and maybe even prefer it, thus increasing his chances of remained stable once back in the community. Will continue to monitor, assess and discuss 05/04 again refused clozapine last night; was willing to take it today. Patient remains floridly psychotic with poor insight. -Patient's mother reports that at home, patient was standing in front of the door way leading to the balcony and having a back and forth, responding to auditory hallucinations and was overheard saying just jump Filipe.. just do it to which Filipe would respond no Filipe don't and then again just do it -patient is very inconsistent with medication, often refusing it, refusing labs, then being willing to take it; however he has no insight about his need for medication and denies all psychiatric symptoms, including auditory hallucinations or even that he talks to himself, despite that he just did so in front of sba underwriter or staff. Patient's refusal to his specific medication of clozapine is very problematic since missing doses, as few as 2 days in a row makes a person increasingly vulnerable to side effects and the need to keep restarting titration, making it difficult for patient to ever reach his therapeutic dose. Patient's ongoing inconsistency to refusal with medication and associated lab work demonstrate that in patient's own mind, he is not here for treatment and sba underwriter decided to revoke patients CV. Team will petition the court for involuntary commitment due to his high risk of unsafe behaviors associated with his poor insight, judgment and inability to make safe healthy decisions for himself. Even at patient's baseline on therapeutic dose of clozapine, he remains internally preoccupied and without any insight into his psychiatric illness or need for medications. There remains strong consideration that patient may require long-term admission to more deeply stabilize. This was briefly discussed with patient who said I took my medication which he in fact did today; however patient is unable to understand that he constantly refuses it or admit that he tries to cheek it. 05/07/2022: No changes to current regimen the continue Clozaril as per treatment team 05/08 floridly manic and psychotic; increased psychomotor agitation, more in the milieu with disorganized behaviors -often patient starts to stabilize when reaching current clozapine dose, however no improvement thus far 05/09 floridly manic; disorganized in the milieu, pacing the halls laughing very loudly to himself; refused to meet with his live out nanny today saying he does not trust him; patient was found underneath his mattress saying he was hiding from the [employer]. He then told staff he wants to stay on the unit. -sba underwriter and team continue to discuss and agree that at this time, patient needs a long-term admission with a structured environment so that once stabilized, he'll be able to remain on stabilizing medications, become more accustomed to feeling stable; hopefully this will deepen his insight into his psychiatric illness illness and need for medication and thus not just be safe in the community, but be more successful and more able to enjoy his life. 05/10 though he seems to be taking his medication which is in disintegrating form, he remains floridly psychotic. Refuse to talk with sba underwriter; sba underwriter tried to explain court however patient would not engage or even listen telling sba underwriter to go way 05/11 remains psychotic. Yesterday after patient received be a medication, he ran full speed down the hallway into his bathroom and close the door; would not respond to staff and had the water running, ostensibly to wash out the medication. Did not want to talk about Court. Discussed case with patent prosecution attorney and postponement agreed upon 05/12 Refrigeration Service Technician explained that team feels he needs admission to a state facility for longer-term admission given the fact that his pattern is to stop taking his medications soon after discharge and becomes unsafe. Patient said no, I'm not going to do that...Not going to a state facility. 05/15 floridly psychotic and manic; refusing medications saying he does not need any; Regarding refusing medication, Says he has been cheeking his medication and not taking it anyway. Refrigeration Service Technician again discussed need for longer term admission at [facility]; patient understands teams plan for long-term admission at a state facility and says he refuses to go. Patient sexually inappropriate with female staff asking for help masturbating. Refrigeration Service Technician and team continue to assert that patient needs long-term admission for his safety as he always goes off his medications soon after discharge and becomes unsafe -sba underwriter and team have suspected patient has been cheeking his medications; however it is disintegrating type so it is likely at least some amount gets in. However this makes it difficult to know how to order current dose of clozapine. There is no other medication, despite many trials, that has been effective for patient (7 other antipsychotics tried). Will lower the dose and keep trying to get patient to take it, expecting that some will get in his system and help him from further decompensating. Patient however has no insight at all and has history of becoming wildly uncontrollable and unsafe when decompensated. 05/16 continues to refuse all medication and sba underwriter has had to lower clozapine dose so as to avoid adverse event, on the off chance he is willing to take it. Refuses Ativan. Continues to be floridly manic and psychotic with disorganized behavior and speech. Patient's behaviors are getting more threatening and he is very difficult to redirect. Refrigeration Service Technician discussed case with Dr. Jerez and other HEALTH AND WELLNESS ADVISOR. In the event that patient becomes agitated, unsafe and needs medication restraint, sba underwriter recommends trying Thorazine 100+ mg with Ativan and Cogentin since this medication has not been tried before and most others cause severe dystonia; also Thorazine is a low potency medications similar to Seroquel which has been sedating for him in the past (and less likely to cause dystonia); Zyprexa is another option, but has limited effect in past). 05/17: pt found standing at the window in his room talking animatedly to himself. irritable at the intrusion, rudely and profanely instructed MD to kelsy ve his presence. nearly had a code last night, ultimately took thorazine, ativan, and clozaril and slept through the night. PLAn: CV-revovked (pt informed but refused to discuss; mother informed who agreed and strongly felt patient needed admission to state facility) Will petition the court for involuntary commitment and substituted judgment Q 15 minute checks -Further Lower clozapine to 50mg (down from 325mg); pt has refused doses for past several days and says he's been cheeking it prior to this -Ativan 2mg TId since patient said he would only take Ativan and this medication might temper his manic, disorganized behavior; however patient has been refusing this as well If patient requires IM recommend: -Thorazine 100mg (or more) -Ativan 2mg -Congentin 1mg (patient has hx of severe dystonic reactions) -clozapine level: pending ANC 04/25 6.0 ANC 05/02 refused x2; will retry ANC 05/03 2.0 ANC 05/09 3.0 ANC 05/11 4.7 MED TRIALS: Paliperidone: dystonia Haldol: dytonia Fluphenazine: severe dytonia olanzapine: limited effect (at therapuetic dose/duration) Seroquel: sedates, but does not treat. Abilify: no effect (at therapuetic dose/duration) Ziprasidone: no effect (at therapuetic dose/duration) Depakote: no effect (though not adequate trial) I spent ___15___ minutes with the patient and/or on the patient floor today, greater than?50% of which was spent counseling/coordinating care. Reason for contiued inpatient stay Substantial Risk for: harm to others and inability to function
[2022-05-17 18:00] VITALS: RESP 14
--- NOTE | 2022-05-18 08:54 | HO.PSYCHPN ---
Subjective Subjective Date of Service: 05/18/22 Reason For Visit: psych eval Diagnostics Vital Signs (24Hr): Vital Signs - 24 hr 05/17/22 18:00 Respiratory Rate 14 BMI result Body Mass Index 21.0 Labs Results: 04/25/22 19:39 04/25/22 19:39 Labs: Laboratory Results - last 48 hr 05/11/22 08:31 Clozapine <10 Norclozapine <10 Medications Medications Current Medications Acetaminophen (Acetaminophen 325 Mg Tablet) 650 mg PO Q6H PRN PRN Reason: Headache/Pain Mild Scale (1-3) Last Admin: 05/10/22 21:37 Dose: 650 mg Al Hydroxide/Mg Hydroxide (Magnesium Hydrox/Alum Hydrox 30 Ml Oral.Susp) 30 ml PO Q6H PRN PRN Reason: Heartburn/Nausea Chlorpromazine HCl (Chlorpromazine Hcl 100 Mg Tablet) 100 mg PO QID PRN PRN Reason: agitation Last Admin: 05/17/22 00:46 Dose: 100 mg Clozapine (Clozapine 25 Mg Tablet) 50 mg PO BEDTIME [facility] Last Admin: 05/17/22 22:39 Dose: 50 mg Hydroxyzine HCl (Hydroxyzine Hcl 25 Mg Tablet) 25 mg PO Q6H PRN PRN Reason: Anxiety Ibuprofen (Ibuprofen 600 Mg Tablet) 600 mg PO Q6H PRN PRN Reason: mild pain Lorazepam (Lorazepam 1 Mg Tablet) 1 mg PO QID PRN PRN Reason: agitation;may give w thorazine Lorazepam (Lorazepam 1 Mg Tablet) 2 mg PO TID [facility] Last Admin: 05/17/22 22:38 Dose: 2 mg Magnesium Hydroxide (Milk Of Magnesia 30 Ml Oral.Susp) 30 ml PO DAILY PRN PRN Reason: Constipation Nicotine Polacrilex (Nicotine Polacrilex 2 Mg Gum) 4 mg BUCCAL Q2H PRN PRN Reason: nicotine withdrawal Last Admin: 05/15/22 02:29 Dose: 4 mg Olanzapine (Olanzapine Odt 10 Mg Tab.Rapdis) 10 mg TRANSLINGU TID PRN PRN Reason: agitation Last Admin: 05/09/22 14:48 Dose: 10 mg Quetiapine Fumarate (Quetiapine Fumarate 50 Mg Tablet) 50 mg PO Q4H PRN PRN Reason: psychosis, agitation, anxiety Trazodone HCl (Trazodone Hcl 50 Mg Tablet) 50 mg PO BEDTIME PRN PRN Reason: Insomnia Allergies Allergies Allergy/AdvReac Type Severity Reaction Status Date / Time diphenhydramine Allergy Unknown unknown Verified 10/12/20 04:33 [From BENADRYL] haloperidol [From HALDOL] Allergy Unknown unknown Verified 10/12/20 04:33 paliperidone AdvReac Severe dystonia Verified 03/30/21 23:47 Assessment & Plan Assessment & Plan (1) Schizoaffective disorder, bipolar type: Status: Acute Code(s): F25.0 - Schizoaffective disorder, bipolar type Plan Jose is a 26 y.o. male with a history of schizoaffective disorder, bipolar type. Pt has hx of multiple previous inpatient admissions for psychotic sx, last on unit February 2022, command AH, internal preoccupation, paranoid ideations, and agitation; past hx of serious suicide attempt when psychotic. Pt presents To the emergency room after family called the police for a wellness check, with patient disorganized, wandering the streets at night, not eating in the face of medication non adherence. Patient is a limited historian. He is pleasant and friendly on admission, knowing this typewriter assembler. He says he stopped taking medications because he did have a refill. -patient has recently been willing to restart clozapine and once titrated back to home dose returns to baseline. Patient did try to pretend he took clozapine today but admitted he did not and said he will do so going forward. Hospital course 04/28 patient remains disorganized speech and behavior, intensely internally preoccupied and having constant dialogue with himself, unaware that others observe this; denies all psychiatric symptoms including auditory hallucinations. Has been taking clozapine 04/30 patient refused clozapine dose last night 04/29; he again refused at this morning but then reconsidered and said he would take it though when he took it, he clearly tried to remove it from his mouth however since it was disintegrating type, most of it seemed to be and just did. Later patient refused evening dose and said he does not care about being discharged, does not care about being hears for 6 months -today patient got 75 mg in the morning -nursing staff will try to offer again patient's bedtime dose, however if he continues to refuse taking it, will half the a lower dose again at some point soon 05/01 patient again initially refused clozapine but then agreed to take it; remains floridly psychotic 05/02 no change; patient refused blood draw; typewriter assembler discussed with pharmacy who agrees to continue medication even though he did not get blood drawn. Patient has been stable on this medication for months and has always had ANC's within normal limits; withholding this medication will only prolong and deepen his psychosis, making it all that much harder to get blood draws. Patient has a history of becoming a significant danger both to himself and others when decompensated. It is typewriter assembler's strong opinion at this time that the potential benefit for continuing clozapine titration far outweighs the potential risk. 05/03 patient repeatedly refused blood draw however eventually consented; he has also intermittently refuses vitals; patient refuses medications for while but then so far has eventually agreed to take nighttime medications though will try to spit them out when he thinks no one is looking. Staff keeps a close eye and general consensus is that the medication is getting ingested, however this is only happening because he is in a highly structured environment. Patient has no insight at all. Sometimes when he refuses medication, he replies that he does not care if it results in him being hospitalized for 6 months. Steam Blocker and team have ongoing discussions about what is best for patient. Given the fact that he can have a very dangerous behaviors when decompensated and patient repeatedly stops taking medications soon after discharge, team is considering whether patient needs admission to a long-term facility such as [facility] where he can be stabilized on medication and remained stable for a much longer duration; the hope would be that during this prolonged period of stabilization, patient's insight would improve and he would get accustomed to being stable and maybe even prefer it, thus increasing his chances of remained stable once back in the community. Will continue to monitor, assess and discuss 05/04 again refused clozapine last night; was willing to take it today. Patient remains floridly psychotic with poor insight. -Patient's mother reports that at home, patient was standing in front of the door way leading to the balcony and having a back and forth, responding to auditory hallucinations and was overheard saying just jump Filipe.. just do it to which Filipe would respond no Filipe don't and then again just do it -patient is very inconsistent with medication, often refusing it, refusing labs, then being willing to take it; however he has no insight about his need for medication and denies all psychiatric symptoms, including auditory hallucinations or even that he talks to himself, despite that he just did so in front of typewriter assembler or staff. Patient's refusal to his specific medication of clozapine is very problematic since missing doses, as few as 2 days in a row makes a person increasingly vulnerable to side effects and the need to keep restarting titration, making it difficult for patient to ever reach his therapeutic dose. Patient's ongoing inconsistency to refusal with medication and associated lab work demonstrate that in patient's own mind, he is not here for treatment and typewriter assembler decided to revoke patients CV. Team will petition the court for involuntary commitment due to his high risk of unsafe behaviors associated with his poor insight, judgment and inability to make safe healthy decisions for himself. Even at patient's baseline on therapeutic dose of clozapine, he remains internally preoccupied and without any insight into his psychiatric illness or need for medications. There remains strong consideration that patient may require long-term admission to more deeply stabilize. This was briefly discussed with patient who said I took my medication which he in fact did today; however patient is unable to understand that he constantly refuses it or admit that he tries to cheek it. 05/07/2022: No changes to current regimen the continue Clozaril as per treatment team 05/08 floridly manic and psychotic; increased psychomotor agitation, more in the milieu with disorganized behaviors -often patient starts to stabilize when reaching current clozapine dose, however no improvement thus far 05/09 floridly manic; disorganized in the milieu, pacing the halls laughing very loudly to himself; refused to meet with his shaper operator today saying he does not trust him; patient was found underneath his mattress saying he was hiding from the Quality Control Checker. He then told staff he wants to stay on the unit. -typewriter assembler and team continue to discuss and agree that at this time, patient needs a long-term admission with a structured environment so that once stabilized, he'll be able to remain on stabilizing medications, become more accustomed to feeling stable; hopefully this will deepen his insight into his psychiatric illness illness and need for medication and thus not just be safe in the community, but be more successful and more able to enjoy his life. 05/10 though he seems to be taking his medication which is in disintegrating form, he remains floridly psychotic. Refuse to talk with typewriter assembler; typewriter assembler tried to explain court however patient would not engage or even listen telling typewriter assembler to go way 05/11 remains psychotic. Yesterday after patient received be a medication, he ran full speed down the hallway into his bathroom and close the door; would not respond to staff and had the water running, ostensibly to wash out the medication. Did not want to talk about Court. Discussed case with senior trial attorney and postponement agreed upon 05/12 Steam Blocker explained that team feels he needs admission to a state facility for longer-term admission given the fact that his pattern is to stop taking his medications soon after discharge and becomes unsafe. Patient said no, I'm not going to do that...Not going to a state facility. 05/15 floridly psychotic and manic; refusing medications saying he does not need any; Regarding refusing medication, Says he has been cheeking his medication and not taking it anyway. Steam Blocker again discussed need for longer term admission at [facility]; patient understands teams plan for long-term admission at a [place] [id number] facility and says he refuses to go. Patient sexually inappropriate with female staff asking for help masturbating. Steam Blocker and team continue to assert that patient needs long-term admission for his safety as he always goes off his medications soon after discharge and becomes unsafe -typewriter assembler and team have suspected patient has been cheeking his medications; however it is disintegrating type so it is likely at least some amount gets in. However this makes it difficult to know how to order current dose of clozapine. There is no other medication, despite many trials, that has been effective for patient (7 other antipsychotics tried). Will lower the dose and keep trying to get patient to take it, expecting that some will get in his system and help him from further decompensating. Patient however has no insight at all and has history of becoming wildly uncontrollable and unsafe when decompensated. 05/16 continues to refuse all medication and typewriter assembler has had to lower clozapine dose so as to avoid adverse event, on the off chance he is willing to take it. Refuses Ativan. Continues to be floridly manic and psychotic with disorganized behavior and speech. Patient's behaviors are getting more threatening and he is very difficult to redirect. Steam Blocker discussed case with Dr. Jerez and other CHIEF CATALYST OPERATOR. In the event that patient becomes agitated, unsafe and needs medication restraint, typewriter assembler recommends trying Thorazine 100+ mg with Ativan and Cogentin since this medication has not been tried before and most others cause severe dystonia; also Thorazine is a low potency medications similar to Seroquel which has been sedating for him in the past (and less likely to cause dystonia); Zyprexa is another option, but has limited effect in past). 05/17: pt found standing at the window in his room talking animatedly to himself. irritable at the intrusion, rudely and profanely instructed MD to leave his presence. nearly had a code last night, ultimately took thorazine, ativan, and clozaril and slept through the night. PLAn: CV-revovked (pt informed but refused to discuss; mother informed who agreed and strongly felt patient needed admission to state facility) Will petition the court for involuntary commitment and substituted judgment Q 15 minute checks -Further Lower clozapine to 50mg (down from 325mg); pt has refused doses for past several days and says he's been cheeking it prior to this -Ativan 2mg TId since patient said he would only take Ativan and this medication might temper his manic, disorganized behavior; however patient has been refusing this as well If patient requires IM recommend: -Thorazine 100mg (or more) -Ativan 2mg -Congentin 1mg (patient has hx of severe dystonic reactions) -clozapine level: pending ANC 04/25 6.0 ANC 05/02 refused x2; will retry ANC 05/03 2.0 ANC 05/09 3.0 ANC 05/11 4.7 MED TRIALS: Paliperidone: dystonia Haldol: dytonia Fluphenazine: severe dytonia olanzapine: limited effect (at therapuetic dose/duration) Seroquel: sedates, but does not treat. Abilify: no effect (at therapuetic dose/duration) Ziprasidone: no effect (at therapuetic dose/duration) Depakote: no effect (though not adequate trial) I spent minutes with the patient and/or on the patient floor today, greater than?50% of which was spent counseling/coordinating care.
--- NOTE | 2022-05-18 13:29 | HO.PSYCHPN ---
Subjective Subjective Date of Service: 05/18/22 Reason For Visit: psych eval Interim History: pt found sleeping in his room. rousable to loud repeated voice. stirs but does not engage with thuan HYLTON. MD introduces himself and states MD is filling in for Dr. Light again today. pt does not respond and appears to fall back asleep. per staff,pacing, self-dialoguing. talking to Bad Filipe. denies AVH, anxiety, or depression. eating and sleeping. safe on unit. took meds last night. Mental Status Exam Mental Status Exam Narrative: lying in bed, rousable to loud voice. does not engage with MD and either falls back asleep nearly immediately or feigns having done so. Diagnostics Vital Signs (24Hr): Vital Signs - 24 hr 05/17/22 18:00 Respiratory Rate 14 BMI result Body Mass Index 21.0 Labs Results: 04/25/22 19:39 04/25/22 19:39 Labs: Laboratory Results - last 48 hr 05/11/22 08:31 Clozapine <10 Norclozapine <10 Medications Medications Current Medications Acetaminophen (Acetaminophen 325 Mg Tablet) 650 mg PO Q6H PRN PRN Reason: Headache/Pain Mild Scale (1-3) Last Admin: 05/10/22 21:37 Dose: 650 mg Al Hydroxide/Mg Hydroxide (Magnesium Hydrox/Alum Hydrox 30 Ml Oral.Susp) 30 ml PO Q6H PRN PRN Reason: Heartburn/Nausea Chlorpromazine HCl (Chlorpromazine Hcl 100 Mg Tablet) 100 mg PO QID PRN PRN Reason: agitation Last Admin: 05/17/22 00:46 Dose: 100 mg Clozapine (Clozapine 25 Mg Tablet) 50 mg PO BEDTIME [facility] Last Admin: 05/17/22 22:39 Dose: 50 mg Hydroxyzine HCl (Hydroxyzine Hcl 25 Mg Tablet) 25 mg PO Q6H PRN PRN Reason: Anxiety Ibuprofen (Ibuprofen 600 Mg Tablet) 600 mg PO Q6H PRN PRN Reason: mild pain Lorazepam (Lorazepam 1 Mg Tablet) 1 mg PO QID PRN PRN Reason: agitation;may give w thorazine Lorazepam (Lorazepam 1 Mg Tablet) 2 mg PO TID EUGENIA Last Admin: 05/18/22 12:56 Dose: Not Given Magnesium Hydroxide (Milk Of Magnesia 30 Ml Oral.Susp) 30 ml PO DAILY PRN PRN Reason: Constipation Nicotine Polacrilex (Nicotine Polacrilex 2 Mg Gum) 4 mg BUCCAL Q2H PRN PRN Reason: nicotine withdrawal Last Admin: 05/15/22 02:29 Dose: 4 mg Olanzapine (Olanzapine Odt 10 Mg Tab.Rapdis) 10 mg TRANSLINGU TID PRN PRN Reason: agitation Last Admin: 05/09/22 14:48 Dose: 10 mg Quetiapine Fumarate (Quetiapine Fumarate 50 Mg Tablet) 50 mg PO Q4H PRN PRN Reason: psychosis, agitation, anxiety Trazodone HCl (Trazodone Hcl 50 Mg Tablet) 50 mg PO BEDTIME PRN PRN Reason: Insomnia Allergies Allergies Allergy/AdvReac Type Severity Reaction Status Date / Time diphenhydramine Allergy Unknown unknown Verified 10/12/20 04:33 [From BENADRYL] haloperidol [From HALDOL] Allergy Unknown unknown Verified 10/12/20 04:33 paliperidone AdvReac Severe dystonia Verified 03/30/21 23:47 Assessment & Plan Assessment & Plan (1) Schizoaffective disorder, bipolar type: Status: Acute Code(s): F25.0 - Schizoaffective disorder, bipolar type Plan Jose is a 26 y.o. male with a history of schizoaffective disorder, bipolar type. Pt has hx of multiple previous inpatient admissions for psychotic sx, last on unit February 2022, command AH, internal preoccupation, paranoid ideations, and agitation; past hx of serious suicide attempt when psychotic. Pt presents To the emergency room after family called the police for a wellness check, with patient disorganized, wandering the streets at night, not eating in the face of medication non adherence. Patient is a limited historian. He is pleasant and friendly on admission, knowing this administrative underwriter. He says he stopped taking medications because he did have a refill. -patient has recently been willing to restart clozapine and once titrated back to home dose returns to baseline. Patient did try to pretend he took clozapine today but admitted he did not and said he will do so going forward. Hospital course 04/28 patient remains disorganized speech and behavior, intensely internally preoccupied and having constant dialogue with himself, unaware that others observe this; denies all psychiatric symptoms including auditory hallucinations. Has been taking clozapine 04/30 patient refused clozapine dose last night 04/29; he again refused at this morning but then reconsidered and said he would take it though when he took it, he clearly tried to remove it from his mouth however since it was disintegrating type, most of it seemed to be and just did. Later patient refused evening dose and said he does not care about being discharged, does not care about being hears for 6 months -today patient got 75 mg in the morning -nursing staff will try to offer again patient's bedtime dose, however if he continues to refuse taking it, will half the a lower dose again at some point soon 05/01 patient again initially refused clozapine but then agreed to take it; remains floridly psychotic 05/02 no change; patient refused blood draw; administrative underwriter discussed with pharmacy who agrees to continue medication even though he did not get blood drawn. Patient has been stable on this medication for months and has always had ANC's within normal limits; withholding this medication will only prolong and deepen his psychosis, making it all that much harder to get blood draws. Patient has a history of becoming a significant danger both to himself and others when decompensated. It is administrative underwriter's strong opinion at this time that the potential benefit for continuing clozapine titration far outweighs the potential risk. 05/03 patient repeatedly refused blood draw however eventually consented; he has also intermittently refuses vitals; patient refuses medications for while but then so far has eventually agreed to take nighttime medications though will try to spit them out when he thinks no one is looking. Staff keeps a close eye and general consensus is that the medication is getting ingested, however this is only happening because he is in a highly structured environment. Patient has no insight at all. Sometimes when he refuses medication, he replies that he does not care if it results in him being hospitalized for 6 months. Supervisor [employer] and team have ongoing discussions about what is best for patient. Given the fact that he can have a very dangerous behaviors when decompensated and patient repeatedly stops taking medications soon after discharge, team is considering whether patient needs admission to a long-term facility such as [facility] where he can be stabilized on medication and remained stable for a much longer duration; the hope would be that during this prolonged period of stabilization, patient's insight would improve and he would get accustomed to being stable and maybe even prefer it, thus increasing his chances of remained stable once back in the community. Will continue to monitor, assess and discuss 05/04 again refused clozapine last night; was willing to take it today. Patient remains floridly psychotic with poor insight. -Patient's mother reports that at home, patient was standing in front of the door way leading to the balcony and having a back and forth, responding to auditory hallucinations and was overheard saying just jump Filipe.. just do it to which Filipe would respond no Filipe don't and then again just do it -patient is very inconsistent with medication, often refusing it, refusing labs, then being willing to take it; however he has no insight about his need for medication and denies all psychiatric symptoms, including auditory hallucinations or even that he talks to himself, despite that he just did so in front of administrative underwriter or staff. Patient's refusal to his specific medication of clozapine is very problematic since missing doses, as few as 2 days in a row makes a person increasingly vulnerable to side effects and the need to keep restarting titration, making it difficult for patient to ever reach his therapeutic dose. Patient's ongoing inconsistency to refusal with medication and associated lab work demonstrate that in patient's own mind, he is not here for treatment and administrative underwriter decided to revoke patients CV. Team will petition the court for involuntary commitment due to his high risk of unsafe behaviors associated with his poor insight, judgment and inability to make safe healthy decisions for himself. Even at patient's baseline on therapeutic dose of clozapine, he remains internally preoccupied and without any insight into his psychiatric illness or need for medications. There remains strong consideration that patient may require long-term admission to more deeply stabilize. This was briefly discussed with patient who said I took my medication which he in fact did today; however patient is unable to understand that he constantly refuses it or admit that he tries to cheek it. 05/07/2022: No changes to current regimen the continue Clozaril as per treatment team 05/08 floridly manic and psychotic; increased psychomotor agitation, more in the milieu with disorganized behaviors -often patient starts to stabilize when reaching current clozapine dose, however no improvement thus far 05/09 floridly manic; disorganized in the milieu, pacing the halls laughing very loudly to himself; refused to meet with his shirt folding machine operator today saying he does not trust him; patient was found underneath his mattress saying he was hiding from the [employer]. He then told staff he wants to stay on the unit. -administrative underwriter and team continue to discuss and agree that at this time, patient needs a long-term admission with a structured environment so that once stabilized, he'll be able to remain on stabilizing medications, become more accustomed to feeling stable; hopefully this will deepen his insight into his psychiatric illness illness and need for medication and thus not just be safe in the community, but be more successful and more able to enjoy his life. 05/10 though he seems to be taking his medication which is in disintegrating form, he remains floridly psychotic. Refuse to talk with administrative underwriter; administrative underwriter tried to explain court however patient would not engage or even listen telling administrative underwriter to go way 05/11 remains psychotic. Yesterday after patient received be a medication, he ran full speed down the hallway into his bathroom and close the door; would not respond to staff and had the water running, ostensibly to wash out the medication. Did not want to talk about Court. Discussed case with assistant city attorney and postponement agreed upon 05/12 Supervisor [employer] explained that team feels he needs admission to a state facility for longer-term admission given the fact that his pattern is to stop taking his medications soon after discharge and becomes unsafe. Patient said no, I'm not going to do that...Not going to a state facility. 05/15 floridly psychotic and manic; refusing medications saying he does not need any; Regarding refusing medication, Says he has been cheeking his medication and not taking it anyway. Supervisor Uranium Processing again discussed need for longer term admission at [facility]; patient understands teams plan for long-term admission at a state facility and says he refuses to go. Patient sexually inappropriate with female staff asking for help masturbating. Supervisor [employer] and team continue to assert that patient needs long-term admission for his safety as he always goes off his medications soon after discharge and becomes unsafe -administrative underwriter and team have suspected patient has been cheeking his medications; however it is disintegrating type so it is likely at least some amount gets in. However this makes it difficult to know how to order current dose of clozapine. There is no other medication, despite many trials, that has been effective for patient (7 other antipsychotics tried). Will lower the dose and keep trying to get patient to take it, expecting that some will get in his system and help him from further decompensating. Patient however has no insight at all and has history of becoming wildly uncontrollable and unsafe when decompensated. 05/16 continues to refuse all medication and administrative underwriter has had to lower clozapine dose so as to avoid adverse event, on the off chance he is willing to take it. Refuses Ativan. Continues to be floridly manic and psychotic with disorganized behavior and speech. Patient's behaviors are getting more threatening and he is very difficult to redirect. Supervisor Uranium Processing discussed case with Dr. Jerez and other [employer]. In the event that patient becomes agitated, unsafe and needs medication restraint, administrative underwriter recommends trying Thorazine 100+ mg with Ativan and Cogentin since this medication has not been tried before and most others cause severe dystonia; also Thorazine is a low potency medications similar to Seroquel which has been sedating for him in the past (and less likely to cause dystonia); Zyprexa is another option, but has limited effect in past). 05/17: pt found standing at the window in his room talking animatedly to himself. irritable at the intrusion, rudely and profanely instructed MD to leave his presence. nearly had a code last night, ultimately took thorazine, ativan, and clozaril and slept through the night. 05/18: sleeping in bed late morning, rousable to loud voice but does not engage and appears to fall back asleep nearly immediately. PLAn: CV-revovked (pt informed but refused to discuss; mother informed who agreed and strongly felt patient needed admission to state facility) Will petition the court for involuntary commitment and substituted judgment Q 15 minute checks -Further Lower clozapine to 50mg (down from 325mg); pt has refused doses for past several days and says he's been cheeking it prior to this -Ativan 2mg TId since patient said he would only take Ativan and this medication might temper his manic, disorganized behavior; however patient has been refusing this as well If patient requires IM recommend: -Thorazine 100mg (or more) -Ativan 2mg -Congentin 1mg (patient has hx of severe dystonic reactions) -clozapine level: pending ANC 04/25 6.0 ANC 05/02 refused x2; will retry ANC 05/03 2.0 ANC 05/09 3.0 ANC 05/11 4.7 MED TRIALS: Paliperidone: dystonia Haldol: dytonia Fluphenazine: severe dytonia olanzapine: limited effect (at therapuetic dose/duration) Seroquel: sedates, but does not treat. Abilify: no effect (at therapuetic dose/duration) Ziprasidone: no effect (at therapuetic dose/duration) Depakote: no effect (though not adequate trial) I spent __15____ minutes with the patient and/or on the patient floor today, greater than?50% of which was spent counseling/coordinating care. Reason for contiued inpatient stay Substantial Risk for: harm to self, harm to others and inability to function
[2022-05-18] MEDS: LORazepam 1 MG TABLET 2 MG PO (15:05)
[2022-05-18] MEDS: Nicotine Polacrilex 2 MG GUM 4 MG BUCCAL ×2 (18:09→22:17)
--- NOTE | 2022-05-18 22:44 | PC.NURSE ---
HS MEDICATION-patient threw medications to the floor. a second set of medications were pulled and attempted to give to patient. patient put meds in mouth then appeared to have spit them in his cup that had tea. will document as not taken as when patient tossed cup into trash residual medication that had dissolved appeared to be on the bottom. later stated ''I'll wait for the dock supervisor before I take them medicine''
[2022-05-19] MEDS: LORazepam 1 MG TABLET PO (01:05)
[2022-05-19] MEDS: chlorproMAZINE HCl 100 MG TABLET PO (01:06)
--- NOTE | 2022-05-19 13:18 | P.PNPSI_ITS ---
Subjective Subjective Date of Service: 05/19/22 Reason For Visit: psych eval Interim History: pt found resting in his room. briefly looks at MD and tells MD to leave. MD introduces himself and states MD is filling in for Dr. Light again today and that pt will transfer to today and Dr. Light will be seeing him moving forward. pt tells MD again to leave, which MD does. per staff, isolative, withdrawn. daytime sleepiness. RIS, self-dialoguing. refused clozapine last night. took thorazine 100 and ativan 1 @ 0100. slept after 0315 through team @ 0915. Mental Status Exam Mental Status Exam Narrative: lying in bed facing the wall, briefly looks over his shoulder at MD then turns away again. tells MD to leave x 2, no other vocalizations. adequately dressed and groomed. not cooperative. no PMA/PMR. speech minimal, nml loudness and latency. thoughts unable to be assessed, but pt does apparently make his limited wishes known verbally. affect constricted, normo-intense, non-labile. mood not assessed. no SI/HI/AVH expressed. Diagnostics Vital Signs (24Hr): BMI result Body Mass Index 21.0 Labs Results: 04/25/22 19:39 04/25/22 19:39 Medications Medications Current Medications Acetaminophen (Acetaminophen 325 Mg Tablet) 650 mg PO Q6H PRN PRN Reason: Headache/Pain Mild Scale (1-3) Last Admin: 05/10/22 21:37 Dose: 650 mg Al Hydroxide/Mg Hydroxide (Magnesium Hydrox/Alum Hydrox 30 Ml Oral.Susp) 30 ml PO Q6H PRN PRN Reason: Heartburn/Nausea Chlorpromazine HCl (Chlorpromazine Hcl 100 Mg Tablet) 100 mg PO QID PRN PRN Reason: agitation Last Admin: 05/19/22 01:06 Dose: 100 mg Clozapine (Clozapine 25 Mg Tablet) 50 mg PO BEDTIME EUGENIA Hydroxyzine HCl (Hydroxyzine Hcl 25 Mg Tablet) 25 mg PO Q6H PRN PRN Reason: Anxiety Ibuprofen (Ibuprofen 600 Mg Tablet) 600 mg PO Q6H PRN PRN Reason: mild pain Lorazepam (Lorazepam 1 Mg Tablet) 1 mg PO QID PRN PRN Reason: agitation;may give w thorazine Last Admin: 05/19/22 01:05 Dose: 1 mg Lorazepam (Lorazepam 1 Mg Tablet) 2 mg PO TID EUGENIA Last Admin: 05/19/22 11:59 Dose: Not Given Magnesium Hydroxide (Milk Of Magnesia 30 Ml Oral.Susp) 30 ml PO DAILY PRN PRN Reason: Constipation Nicotine Polacrilex (Nicotine Polacrilex 2 Mg Gum) 4 mg BUCCAL Q2H PRN PRN Reason: nicotine withdrawal Last Admin: 05/18/22 22:17 Dose: 4 mg Olanzapine (Olanzapine Odt 10 Mg Tab.Rapdis) 10 mg TRANSLINGU TID PRN PRN Reason: agitation Last Admin: 05/09/22 14:48 Dose: 10 mg Quetiapine Fumarate (Quetiapine Fumarate 50 Mg Tablet) 50 mg PO Q4H PRN PRN Reason: psychosis, agitation, anxiety Trazodone HCl (Trazodone Hcl 50 Mg Tablet) 50 mg PO BEDTIME PRN PRN Reason: Insomnia Allergies Allergies Allergy/AdvReac Type Severity Reaction Status Date / Time diphenhydramine Allergy Unknown unknown Verified 10/12/20 04:33 [From BENADRYL] haloperidol [From HALDOL] Allergy Unknown unknown Verified 10/12/20 04:33 paliperidone AdvReac Severe dystonia Verified 03/30/21 23:47 Assessment & Plan Assessment & Plan (1) Schizoaffective disorder, bipolar type: Status: Acute Code(s): F25.0 - Schizoaffective disorder, bipolar type Plan Jose is a 26 y.o. male with a history of schizoaffective disorder, bipolar type. Pt has hx of multiple previous inpatient admissions for psychotic sx, last on unit February 2022, command AH, internal preoccupation, paranoid ideations, and agitation; past hx of serious suicide attempt when psychotic. Pt presents To the emergency room after family called the police for a wellness check, with patient disorganized, wandering the streets at night, not eating in the face of medication non adherence. Patient is a limited historian. He is pleasant and friendly on admission, knowing this typewriter assembler. He says he stopped taking medications because he did have a refill. -patient has recently been willing to restart clozapine and once titrated back to home dose returns to baseline. Patient did try to pretend he took clozapine today but admitted he did not and said he will do so going forward. Hospital course 04/28 patient remains disorganized speech and behavior, intensely internally preoccupied and having constant dialogue with himself, unaware that others observe this; denies all psychiatric symptoms including auditory hallucinations. Has been taking clozapine 04/30 patient refused clozapine dose last night 04/29; he again refused at this m orning but then reconsidered and said he would take it though when he took it, he clearly tried to remove it from his mouth however since it was disintegrating type, most of it seemed to be and just did. Later patient refused evening dose and said he does not care about being discharged, does not care about being hears for 6 months -today patient got 75 mg in the morning -nursing staff will try to offer again patient's bedtime dose, however if he continues to refuse taking it, will half the a lower dose again at some point soon 05/01 patient again initially refused clozapine but then agreed to take it; remains floridly psychotic 05/02 no change; patient refused blood draw; typewriter assembler discussed with pharmacy who agrees to continue medication even though he did not get blood drawn. Patient has been stable on this medication for months and has always had ANC's within normal limits; withholding this medication will only prolong and deepen his psychosis, making it all that much harder to get blood draws. Patient has a history of becoming a significant danger both to himself and others when decompensated. It is typewriter assembler's strong opinion at this time that the potential benefit for continuing clozapine titration far outweighs the potential risk. 05/03 patient repeatedly refused blood draw however eventually consented; he has also intermittently refuses vitals; patient refuses medications for while but then so far has eventually agreed to take nighttime medications though will try to spit them out when he thinks no one is looking. Staff keeps a close eye and general consensus is that the medication is getting ingested, however this is only happening because he is in a highly structured environment. Patient has no insight at all. Sometimes when he refuses medication, he replies that he does not care if it results in him being hospitalized for 6 months. Home Energy Consultant and team have ongoing discussions about what is best for patient. Given the fact that he can have a very dangerous behaviors when decompensated and patient repeatedly stops taking medications soon after discharge, team is considering whether patient needs admission to a long-term facility such as [facility] where he can be stabilized on medication and remained stable for a much longer duration; the hope would be that during this prolonged period of stabilization, patient's insight would improve and he would get accustomed to being stable and maybe even prefer it, thus increasing his chances of remained stable once back in the community. Will continue to monitor, assess and discuss 05/04 again refused clozapine last night; was willing to take it today. Patient remains floridly psychotic with poor insight. -Patient's mother reports that at home, patient was standing in front of the door way leading to the balcony and having a back and forth, responding to auditory hallucinations and was overheard saying just jump Filipe.. just do it to which Filipe would respond no Filipe don't and then again just do it -patient is very inconsistent with medication, often refusing it, refusing labs, then being willing to take it; however he has no insight about his need for medication and denies all psychiatric symptoms, including auditory hallucinations or even that he talks to himself, despite that he just did so in front of typewriter assembler or staff. Patient's refusal to his specific medication of clozapine is very problematic since missing doses, as few as 2 days in a row makes a person increasingly vulnerable to side effects and the need to keep restarting titration, making it difficult for patient to ever reach his therapeutic dose. Patient's ongoing inconsistency to refusal with medication and associated lab work demonstrate that in patient's own mind, he is not here for treatment and typewriter assembler decided to revoke patients CV. Team will petition the court for involuntary commitment due to his high risk of unsafe behaviors associated with his poor insight, judgment and inability to make safe healthy decisions for himself. Even at patient's baseline on therapeutic dose of clozapine, he remains internally preoccupied and without any insight into his psychiatric illness or need for medications. There remains strong consideration that patient may require long-term admission to more deeply stabilize. This was briefly discussed with patient who said I took my medication which he in fact did today; however patient is unable to understand that he constantly refuses it or admit that he tries to cheek it. 05/07/2022: No changes to current regimen the continue Clozaril as per treatment team 05/08 floridly manic and psychotic; increased psychomotor agitation, more in the milieu with disorganized behaviors -often patient starts to stabilize when reaching current clozapine dose, however no improvement thus far 05/09 floridly manic; disorganized in the milieu, pacing the halls laughing very loudly to himself; refused to meet with his sample display preparer today saying he does not trust him; patient was found underneath his mattress saying he was hiding from the Control Clerk Auditing. He then told staff he wants to stay on the unit. -typewriter assembler and team continue to discuss and agree that at this time, patient needs a long-term admission with a structured environment so that once stabilized, he'll be able to remain on stabilizing medications, become more accustomed to feeling stable; hopefully this will deepen his insight into his psychiatric illness illness and need for medication and thus not just be safe [facility] the [facility] , but be more successful and more able to enjoy his life. 05/10 though he seems to be taking his medication which is in disintegrating form, he remains floridly psychotic. Refuse to talk with typewriter assembler; typewriter assembler tried to explain court however patient would not engage or even listen telling typewriter assembler to go way 05/11 remains psychotic. Yesterday after patient received be a medication, he ran full speed down the hallway into his bathroom and close the door; would not respond to staff and had the water running, ostensibly to wash out the medication. Did not want to talk about Court. Discussed case with commercial attorney and postponement agreed upon 05/12 Home Energy Consultant explained that team feels he needs admission to a state facility for longer-term admission given the fact that his pattern is to stop taking his medications soon after discharge and becomes unsafe. Patient said no, I'm not going to do that...Not going to a state facility. 05/15 floridly psychotic and manic; refusing medications saying he does not need any; Regarding refusing medication, Says he has been cheeking his medication and not taking it anyway. Home Energy Consultant again discussed need for longer term admission at [facility]; patient understands teams plan for long-term admission at a state facility and says he refuses to go. Patient sexually inappropriate with female staff asking for help masturbating. Home Energy Consultant and team continue to assert that patient needs long-term admission for his safety as he always goes off his medications soon after discharge and becomes unsafe -typewriter assembler and team have suspected patient has been cheeking his medications; however it is disintegrating type so it is likely at least some amount gets in. However this makes it difficult to know how to order current dose of clozapine. There is no other medication, despite many trials, that has been effective for patient (7 other antipsychotics tried). Will lower the dose and keep trying to get patient to take it, expecting that some will get in his system and help him from further decompensating. Patient however has no insight at all and has history of becoming wildly uncontrollable and unsafe when decompensated. 05/16 continues to refuse all medication and typewriter assembler has had to lower clozapine dose so as to avoid adverse event, on the off chance he is willing to take it. Refuses Ativan. Continues to be floridly manic and psychotic with disorganized behavior and speech. Patient's behaviors are getting more threatening and he is very difficult to redirect. Home Energy Consultant discussed case with Dr. Jerez and other ENVIRONMENTAL SCIENCE PROFESSOR. In the event that patient becomes agitated, unsafe and needs medication restraint, typewriter assembler recommends trying Thorazine 100+ mg with Ativan and Cogentin since this medication has not been tried before and most others cause severe dystonia; also Thorazine is a low potency medications similar to Seroquel which has been sedating for him in the past (and less likely to cause dystonia); Zyprexa is another option, but has limited effect in past). 05/17: pt found standing at the window in his room talking animatedly to himself. irritable at the intrusion, rudely and profanely instructed MD to leave his presence. nearly had a code last night, ultimately took thorazine, ativan, and clozaril and slept through the night. 05/18: sleeping in bed late morning, rousable to loud voice but does not engage and appears to fall back asleep nearly immediately. 05/19: resting in bed, tells MD to leave x2, no other interaction. MD informs him of transfer to and that Dr. Light will begin meeting with him once aga in there. PLAn: CV-revovked (pt informed but refused to discuss; mother informed who agreed and strongly felt patient needed admission to state facility) Will petition the court for involuntary commitment and substituted judgment Q 15 minute checks -Further Lower clozapine to 50mg (down from 325mg); pt has refused doses for past several days and says he's been cheeking it prior to this -Ativan 2mg TId since patient said he would only take Ativan and this medication might temper his manic, disorganized behavior; however patient has been refusing this as well If patient requires IM recommend: -Thorazine 100mg (or more) -Ativan 2mg -Congentin 1mg (patient has hx of severe dystonic reactions) -clozapine level: pending ANC 04/25 6.0 ANC 05/02 refused x2; will retry ANC 05/03 2.0 ANC 05/09 3.0 ANC 05/11 4.7 MED TRIALS: Paliperidone: dystonia Haldol: dytonia Fluphenazine: severe dytonia olanzapine: limited effect (at therapuetic dose/duration) Seroquel: sedates, but does not treat. Abilify: no effect (at therapuetic dose/duration) Ziprasidone: no effect (at therapuetic dose/duration) Depakote: no effect (though not adequate trial) I spent ___15___ minutes with the patient and/or on the patient floor today, greater than?50% of which was spent counseling/coordinating care. Reason for contiued inpatient stay Substantial Risk for: inability to function
--- NOTE | 2022-05-20 09:00 | PC.NURSE ---
Pt refused am labs. notified.
[2022-05-20] MEDS: LORazepam 1 MG TABLET 2 MG PO (09:02)
--- NOTE | 2022-05-20 12:20 | P.PNPSI_ITS ---
Subjective Subjective Date of Service: 05/20/22 Reason For Visit: psych eval Interim History: Patient seen and discussed. Patient roams the halls, loud, self dialoguing. He intermittently takes medications. He was approached in his room. He had music playing and he was heard yelling to self Filipe you're not like that! When asked how he is feeling he responded I'm great. When asked why he was loud he said I'm just hyped... I was listening to the song. I will keep it down. You are the man! He appeared euphoric and elated. Mental Status Exam Mental Status Exam Patient Appearance: Disheveled Patient Orientation: Person, Place and Time Level of Consciousness: Awake, Restless and Alert Patient Behavior: Hyperactive, Suspicious, Restless, Invasion - Personal Space, Distractible, Good Eye Contact, Impulsive and Pacing Mood Description: Euphoric and Expansive Affect Description: Euphoric, Elated and Expansive Patient Cognition Impaired: No Ability to Follow Directions: Fair Speech Pattern: Clear, Spontaneous Speech, Rapid, Excessive, Animated, Loud and Excited Memory Description: Intact Hallucinations: Auditory Delusions: Paranoid Ideation and Grandiose Perceptual Disturbances: Hallucinations Thought Process: Racing and Distracted Thought Content: positive for Flight of Ideas Abnormal Motor Activity Signs and Symptoms: Hyperactivity and Restlessness Judgement: Poor Diagnostics Vital Signs (24Hr): BMI result Body Mass Index 21.0 Labs Results: 04/25/22 19:39 04/25/22 19:39 Medications Medications Current Medications Acetaminophen (Acetaminophen 325 Mg Tablet) 650 mg PO Q6H PRN PRN Reason: Headache/Pain Mild Scale (1-3) Last Admin: 05/10/22 21:37 Dose: 650 mg Al Hydroxide/Mg Hydroxide (Magnesium Hydrox/Alum Hydrox 30 Ml Oral.Susp) 30 ml PO Q6H PRN PRN Reason: Heartburn/Nausea Chlorpromazine HCl (Chlorpromazine Hcl 100 Mg Tablet) 100 mg PO QID PRN PRN Reason: agitation Last Admin: 05/19/22 01:06 Dose: 100 mg Clozapine (Clozapine 25 Mg Tablet) 50 mg PO BEDTIME EUGENIA Last Admin: 05/19/22 22:00 Dose: Not Given Hydroxyzine HCl (Hydroxyzine Hcl 25 Mg Tablet) 25 mg PO Q6H PRN PRN Reason: Anxiety Ibuprofen (Ibuprofen 600 Mg Tablet) 600 mg PO Q6H PRN PRN Reason: mild pain Lorazepam (Lorazepam 1 Mg Tablet) 1 mg PO QID PRN PRN Reason: agitation;may give w thorazine Last Admin: 05/19/22 01:05 Dose: 1 mg Lorazepam (Lorazepam 1 Mg Tablet) 2 mg PO TID EUGENIA Last Admin: 05/20/22 09:02 Dose: 2 mg Magnesium Hydroxide (Milk Of Magnesia 30 Ml Oral.Susp) 30 ml PO DAILY PRN PRN Reason: Constipation Nicotine Polacrilex (Nicotine Polacrilex 2 Mg Gum) 4 mg BUCCAL Q2H PRN PRN Reason: nicotine withdrawal Last Admin: 05/18/22 22:17 Dose: 4 mg Olanzapine (Olanzapine Odt 10 Mg Tab.Rapdis) 10 mg TRANSLINGU TID PRN PRN Reason: agitation Last Admin: 05/09/22 14:48 Dose: 10 mg Quetiapine Fumarate (Quetiapine Fumarate 50 Mg Tablet) 50 mg PO Q4H PRN PRN Reason: psychosis, agitation, anxiety Trazodone HCl (Trazodone Hcl 50 Mg Tablet) 50 mg PO BEDTIME PRN PRN Reason: Insomnia Allergies Allergies Allergy/AdvReac Type Severity Reaction Status Date / Time diphenhydramine Allergy Unknown unknown Verified 10/12/20 04:33 [From BENADRYL] haloperidol [From HALDOL] Allergy Unknown unknown Verified 10/12/20 04:33 paliperidone AdvReac Severe dystonia Verified 03/30/21 23:47 Assessment & Plan Assessment & Plan (1) Schizoaffective disorder, bipolar type: Status: Acute Code(s): F25.0 - Schizoaffective disorder, bipolar type Plan Jose is a 26 y.o. male with a history of schizoaffective disorder, bipolar type. Pt has hx of multiple previous inpatient admissions for psychotic sx, last on unit February 2022, command AH, internal preoccupation, paranoid ideations, and agitation; past hx of serious suicide attempt when psychotic. Pt presents To the emergency room after family called the police for a wellness check, with patient disorganized, wandering the streets at night, not eating in the face of medication non adherence.? Patient is a limited historian.? He is pleasant and friendly on admission, knowing this automobile service writer.? He says he stopped taking medications because he did have a refill.? -patient has recently been willing to restart clozapine and once titrated back to home dose returns to baseline.? Patient did try to pretend he took clozapine today but admitted he did not and said he will do so going forward. Hospital course 04/28 patient remains disorganized speech and behavior, intensely internally preoccupied and having constant dialogue with himself, unaware that others observe this; denies all psychiatric symptoms including auditory hallucinations.? Has been taking clozapine 04/30 patient refused clozapine dose last night 04/29; he again refused at this morning but then reconsidered and said he would take it though when he took it, he clearly tried to remove it from his mouth however since it was disintegrating type, most of it seemed to be and just did.? Later patient refused evening dose and said he does not care about being discharged, does not care about being hears for 6 months -today patient got 75 mg in the morning -nursing staff will try to offer again patient's bedtime dose, however if he continues to refuse taking it, will half the a lower dose again at some point soon 05/01 patient again initially refused clozapine but then agreed to take it; remains floridly psychotic 05/02 no change; patient refused blood draw; automobile service writer discussed with pharmacy who agrees to continue medication even though he did not get blood drawn.? Patient has been stable on this medication for months and has always had ANC's within normal limits; withholding this medication will only prolong and deepen his psychosis, making it all that much harder to get blood draws.? Patient has a history of becoming a significant danger both to himself and others when decompensated.? It is automobile service writer's strong opinion at this time that the potential benefit for continuing clozapine titration far outweighs the potential risk. 05/03 patient repeatedly refused blood draw however eventually consented; he has also intermittently refuses vitals; patient refuses medications for while but then so far has eventually agreed to take nighttime medications though will try to spit them out when he thinks no one is looking.? Staff keeps a close eye and general consensus is that the medication is getting ingested, however this is only happening because he is in a highly structured environment.? Patient has no insight at all.? Sometimes when he refuses medication, he replies that he does not care if it results in him being hospitalized for 6 months.? Sales Support Rep and team have ongoing discussions about what is best for patient.? Given the fact that he can have a very dangerous behaviors when decompensated and patient repeatedly stops taking medications soon after discharge, team is considering whether patient needs admission to a long-term facility such as [facility] where he can be stabilized on medication and remained stable for a much longer duration; the hope would be that during this prolonged period of stabilization, patient's insight would improve and he would get accustomed to being stable and maybe even prefer it, thus increasing his chances of remained stable once back in the community.? Will continue to monitor, assess and discuss 05/04 again refused clozapine last night; was willing to take it today.? Patient remains floridly psychotic with poor insight. -Patient's mother reports that at home, patient was standing in front of the door way leading to the balcony and having a back and forth, responding to auditory hallucinations and was overheard saying just jump Filipe.. just do it to which Filipe would respond no Filipe don't and then again just do it -patient is very inconsistent with medication, often refusing it, refusing labs, then being willing to take it; however he has no insight about his need for medication and denies all psychiatric symptoms, including auditory hallucinations or even that he talks to himself, despite that he just did so in front of automobile service writer or staff.? Patient's refusal to his specific medication of clozapine is very problematic since missing doses, as few as 2 days in a row makes a person increasingly vulnerable to side effects and the need to keep restarting titration, making it difficult for patient to ever reach his therapeutic dose.? Patient's ongoing inconsistency to refusal with medication and associated lab work demonstrate that in patient's own mind, he is not here for treatment and automobile service writer decided to revoke patients CV.? Team will petition the court for involuntary commitment due to his high risk of unsafe behaviors associated with his poor insight, judgment and inability to make safe healthy decisions for himself.? Even at patient's baseline on therapeutic dose of c lozapine, he remains internally preoccupied and without any insight into his psychiatric illness or need for medications.? There remains strong consideration that patient may require long-term admission to more deeply stabilize.? This was briefly discussed with patient who said I took my medication which he in fact did today; however patient is unable to understand that he constantly refuses it or admit that he tries to cheek it. 05/07/2022: No changes to current regimen the continue Clozaril as per treatment team 05/08 floridly manic and psychotic; increased psychomotor agitation, more in the milieu with disorganized behaviors -often patient starts to stabilize when reaching current clozapine dose, however no improvement thus far 05/09 floridly manic; disorganized in the milieu, pacing the halls laughing very loudly to himself; refused to meet with his box car washer today saying he does not trust him; patient was found underneath his mattress saying he was hiding from the Quantitative Software Engineer.? He then told staff he wants to stay on the unit. -automobile service writer and team continue to discuss and agree that at this time, patient needs a long-term admission with a structured environment so that once stabilized, he 'll be able to remain on stabilizing medications, become more accustomed to feeling stable; hopefully this will deepen his insight into his psychiatric illness illness and need for medication and thus not just be safe in the community, but be more successful and more able to enjoy his life. 05/10 though he seems to be taking his medication which is in disintegrating form, he remains floridly psychotic.? Refuse to talk with automobile service writer; automobile service writer tried to explain court however patient would not engage or even listen telling automobile service writer to go way 05/11 remains psychotic.? Yesterday after patient received be a medication, he ran full speed down the hallway into his bathroom and close the door; would not respond to staff and had the water running, ostensibly to wash out the medication. Did not want to talk about Court.? Discussed case with civil litigation attorney and postponement agreed upon 05/12 Sales Support Rep explained that team feels he needs admission to a state facility for longer-term admission given the fact that his pattern is to stop taking his medications soon after discharge and becomes unsafe.? Patient said no, I'm not going to do that...Not going to a state facility. 05/15 floridly psychotic and manic; refusing medications saying he does not need any; Regarding refusing medication, Says he has been cheeking his medication and not taking it anyway. Sales Support Rep again discussed need for longer term admission [facility];? patient understands teams plan for long-term admission at a [place] [id number] facility and says he refuses to go.? Patient sexually inappropriate with female staff asking for help masturbating.? Sales Support Rep and team continue to assert that patient needs long-term admission for his safety as he always goes off his medications soon after discharge and becomes unsafe -automobile service writer and team have suspected patient has been cheeking his medications; however it is disintegrating type so it is likely at least some amount gets in.? However this makes it difficult to know how to order current dose of clozapine.? There is no other medication, despite many trials, that has been effective for patient (7 other antipsychotics tried).? Will lower the dose and keep trying to get patient to take it, expecting that some will get in his system and help him from further decompensating.? Patient however has no insight at all and has history of becoming wildly uncontrollable and unsafe when decompensated. 05/16 continues to refuse all medication and automobile service writer has had to lower clozapine dose so as to avoid adverse event, on the off chance he is willing to take it.? Refuses Ativan.? Continues to be floridly manic and psychotic with disorganized behavior and speech.? Patient's behaviors are getting more threatening and he is very difficult to redirect.? Sales Support Rep discussed case with Dr. Jerez and other DISABILITIES SERVICES OFFICER.? In the event that patient becomes agitated, unsafe and needs medication restraint, automobile service writer recommends trying Thorazine 100+ mg with Ativan and Cogentin since this medication has not been tried before and most others cause severe dystonia; also Thorazine is a low potency medications similar to Seroquel which has been sedating for him in the past (and less likely to cause dystonia); Zyprexa is another option, but has limited effect in past). 05/20: Continue current treatment plan. PLAn: CV-revovked (pt informed but refused to discuss; mother informed who agreed and strongly felt patient needed admission to [facility] facility) Will petition the court for involuntary commitment and substituted judgment Q 15 minute checks -Further Lower clozapine to 50mg (down from 325mg); pt has refused doses for past several days and says he's been cheeking it prior to this -Ativan 2mg TId since patient said he would only take Ativan and this medication might temper his manic, disorganized behavior; however patient has been refusing this as well If patient requires IM recommend: -Thorazine 100mg (or more) -Ativan 2mg -Congentin 1mg (patient has hx of severe dystonic reactions) -clozapine level: pending ANC 04/25? 6.0 ANC 05/02 refused x2; will retry ANC 05/03 2.0 ANC 05/09 3.0 ANC 05/11 4.7 MED TRIALS: Paliperidone: dystonia Haldol: dytonia Fluphenazine: severe dytonia olanzapine: limited effect (at therapuetic dose/duration) Seroquel: sedates, but does not treat. Abilify: no effect (at therapuetic dose/duration) Ziprasidone: no effect (at therapuetic dose/duration) Depakote: no effect (though not adequate trial) I spent minutes with the patient and/or on the patient floor today, great er than?50% of which was spent counseling/coordinating care. Reason for contiued inpatient stay Substantial Risk for: inability to function and rapid decompensation
[2022-05-20 18:00] VITALS: BP 141/82; PULSE 105; RESP 18; O2SAT 97
[2022-05-20] MEDS: LORazepam 1 MG TABLET PO (18:34)
--- NOTE | 2022-05-21 06:43 | PC.NURSE ---
Pt slowly escalated throughout the night, becoming threatening, screaming, punching queen. Security was called and IM orders received from provider. Pt reoriented himself due to observing the presence of security. Pt stated he was better and would be able to control himself , and asked to please not give him an injection. This RN agreed to hold the intervention if he could remain calm. Pt did indeed return to his baseline for the remainder of the morning.
[2022-05-21] MEDS: LORazepam 1 MG TABLET PO ×2 (09:02→12:27)
[2022-05-21] MEDS: OLANZapine ODT 10 MG TAB.RAPDIS TRANSLINGU (12:27)
--- NOTE | 2022-05-21 13:00 | HO.PSYCHPN ---
Subjective Subjective Date of Service: 05/21/22 Reason For Visit: psych eval Interim History: Patient seen and discussed. Patient was agitated overnight. He didn't sleep. Today continues loud and yelling. He is heard in his room slamming things and punching queen. Loudly self-dialoguing. Patient needed redirection from staff. Patient was offered medications and finally agreed to take PO Clozapine this afternoon. He was calm after that. Review of Systems Review of Systems Yes Unobtainable due to mental status and Other Mental Status Exam Mental Status Exam Patient Appearance: Disheveled Patient Orientation: Person, Place and Time Level of Consciousness: Awake, Restless and Alert Patient Behavior: Hyperactive, Suspicious, Restless, Invasion - Personal Space, Distractible, Good Eye Contact, Impulsive and Pacing Mood Description: Euphoric and Expansive Affect Description: Euphoric, Elated and Expansive Patient Cognition Impaired: No Ability to Follow Directions: Fair Speech Pattern: Clear, Spontaneous Speech, Rapid, Excessive, Animated, Loud and Excited Memory Description: Intact Hallucinations: Auditory Delusions: Paranoid Ideation, Grandiose and Present Thought Process: Incoherent, Racing, Illogical and Distracted Thought Content: positive for Flight of Ideas, positive for Racing, positive for Perseveration, positive for Preoccupation, positive for Loose Associations and positive for Disorganized Diagnostics Vital Signs (24Hr): BMI result Body Mass Index 21.0 Labs Results: 04/25/22 19:39 04/25/22 19:39 Medications Medications Current Medications Acetaminophen (Acetaminophen 325 Mg Tablet) 650 mg PO Q6H PRN PRN Reason: Headache/Pain Mild Scale (1-3) Last Admin: 05/10/22 21:37 Dose: 650 mg Al Hydroxide/Mg Hydroxide (Magnesium Hydrox/Alum Hydrox 30 Ml Oral.Susp) 30 ml PO Q6H PRN PRN Reason: Heartburn/Nausea Chlorpromazine HCl (Chlorpromazine Hcl 100 Mg Tablet) 100 mg PO QID PRN PRN Reason: agitation Last Admin: 05/19/22 01:06 Dose: 100 mg Clozapine (Clozapine Odt 25 Mg Tab.Rapdis) 50 mg PO BEDTIME EUGENIA Hydroxyzine HCl (Hydroxyzine Hcl 25 Mg Tablet) 25 mg PO Q6H PRN PRN Reason: Anxiety Ibuprofen (Ibuprofen 600 Mg Tablet) 600 mg PO Q6H PRN PRN Reason: mild pain Lorazepam (Lorazepam 1 Mg Tablet) 1 mg PO QID PRN PRN Reason: agitation;may give w thorazine Last Admin: 05/21/22 12:27 Dose: 1 mg Magnesium Hydroxide (Milk Of Magnesia 30 Ml Oral.Susp) 30 ml PO DAILY PRN PRN Reason: Constipation Nicotine Polacrilex (Nicotine Polacrilex 2 Mg Gum) 4 mg BUCCAL Q2H PRN PRN Reason: nicotine withdrawal Last Admin: 05/18/22 22:17 Dose: 4 mg Olanzapine (Olanzapine Odt 10 Mg Tab.Rapdis) 10 mg TRANSLINGU TID PRN PRN Reason: agitation Last Admin: 05/21/22 12:27 Dose: 10 mg Quetiapine Fumarate (Quetiapine Fumarate 50 Mg Tablet) 50 mg PO Q4H PRN PRN Reason: psychosis, agitation, anxiety Trazodone HCl (Trazodone Hcl 50 Mg Tablet) 50 mg PO BEDTIME PRN PRN Reason: Insomnia Allergies Allergies Allergy/AdvReac Type Severity Reaction Status Date / Time diphenhydramine Allergy Unknown unknown Verified 10/12/20 04:33 [From BENADRYL] haloperidol [From HALDOL] Allergy Unknown unknown Verified 10/12/20 04:33 paliperidone AdvReac Severe dystonia Verified 03/30/21 23:47 Assessment & Plan Assessment & Plan (1) Schizoaffective disorder, bipolar type: Status: Acute Code(s): F25.0 - Schizoaffective disorder, bipolar type Plan Jose is a 26 y.o. male with a history of schizoaffective disorder, bipolar type. Pt has hx of multiple previous inpatient admissions for psychotic sx, last on unit February 2022, command AH, internal preoccupation, paranoid ideations, and agitation; past hx of serious suicide attempt when psychotic. Pt presents To the emergency room after family called the police for a wellness check, with patient disorganized, wandering the streets at night, not eating in the face of medication non adherence.? Patient is a limited historian.? He is pleasant and friendly on admission, knowing this investment underwriter.? He says he stopped taking medications because he did have a refill.? -patient has recently been willing to restart clozapine and once titrated back to home dose returns to baseline.? Patient did try to pretend he took clozapine today but admitted he did not and said he will do so going forward. Hospital course 04/28 patient remains disorganized speech and behavior, intensely internally preoccupied and having constant dialogue with himself, unaware that others observe this; denies all psychiatric symptoms including auditory hallucinations.? Has been taking clozapine 04/30 patient refused clozapine dose last night 04/29; he again refused at this morning but then reconsidered and said he would take it though when he took it, he clearly tried to remove it from his mouth however since it was disintegrating type, most of it seemed to be and just did.? Later patient refused evening dose and said he does not care about being discharged, does not care about being hears for 6 months -today patient got 75 mg in the morning -nursing staff will try to offer again patient's bedtime dose, however if he continues to refuse taking it, will half the a lower dose again at some point soon 05/01 patient again initially refused clozapine but then agreed to take it; remains floridly psychotic 05/02 no change; patient refused blood draw; investment underwriter discussed with pharmacy who agrees to continue medication even though he did not get blood drawn.? Patient has been stable on this medication for months and has always had ANC's within normal limits; withholding this medication will only prolong and deepen his psychosis, making it all that much harder to get blood draws.? Patient has a history of becoming a significant danger both to himself and others when decompensated.? It is investment underwriter's strong opinion at this time that the potential benefit for continuing clozapine titration far outweighs the potential risk. 05/03 patient repeatedly refused blood draw however eventually consented; he has also intermittently refuses vitals; patient refuses medications for while but then so far has eventually agreed to take nighttime medications though will try to spit them out when he thinks no one is looking.? Staff keeps a close eye and general consensus is that the medication is getting ingested, however this is only happening because he is in a highly structured environment.? Patient has no insight at all.? Sometimes when he refuses medication, he replies that he does not care if it results in him being hospitalized for 6 months.? Frozen Food Department Manager and team have ongoing discussions about what is best for patient.? Given the fact that he can have a very dangerous behaviors when decompensated and patient repeatedly stops taking medications soon after discharge, team is considering whether patient needs admission to a long-term facility such as [facility] where he can be stabilized on medication and remained stable for a much longer duration; the hope would be that during this prolonged period of stabilization, patient's insight would improve and he would get accustomed to being stable and maybe even prefer it, thus increasing his chances of remained stable once back in the community.? Will continue to monitor, assess and discuss 05/04 again refused clozapine last night; was willing to take it today.? Patient remains floridly psychotic with poor insight. -Patient's mother reports that at home, patient was standing in front of the door way leading to the balcony and having a back and forth, responding to auditory hallucinations and was overheard saying just jump Filipe.. just do it to which Filipe would respond no Filipe don't and then again just do it -patient is very inconsistent with medication, often refusing it, refusing labs, then being willing to take it; however he has no insight about his need for medication and denies all psychiatric symptoms, including auditory hallucinations or even that he talks to himself, despite that he just did so in front of investment underwriter or staff.? Patient's refusal to his specific medication of clozapine is very problematic since missing doses, as few as 2 days in a row makes a person increasingly vulnerable to side effects and the need to keep restarting titration, making it difficult for patient to ever reach his therapeutic dose.? Patient's ongoing inconsistency to refusal with medication and associated lab work demonstrate that in patient's own mind, he is not here for treatment and investment underwriter decided to revoke patients CV.? Team will petition the court for involuntary commitment due to his high risk of unsafe behaviors associated with his poor insight, judgment and inability to make safe healthy decisions for himself.? Even at patient's baseline on therapeutic dose of clozapine, he remains internally preoccupied and without any insight into his psychiatric illness or need for medications.? There remains strong consideration that patient may require long-term admission to more deeply stabilize.? This was briefly discussed with patient who said I took my medication which he in fact did today; however patient is unable to understand that he constantly refuses it or admit that he tries to cheek it. 05/07/2022: No changes to current regimen the continue Clozaril as per treatment team 05/08 floridly manic and psychotic; increased psychomotor agitation, more in the milieu with disorganized behaviors -often patient starts to stabilize when reaching current clozapine dose, however no improvement thus far 05/09 floridly manic; disorganized in the milieu, pacing the halls laughing very loudly to himself; refused to meet with his tools and parts attendant today saying he does not trust him; patient was found underneath his mattress saying he was hiding from the Manager Non Profit.? He then told staff he wants to stay on the unit. -investment underwriter and team continue to discuss and agree that at this time, patient needs a long-term admission with a structured environment so that once stabilized, he'll be able to remain on stabilizing medications, become more accustomed to feeling stable; hopefully this will deepen his insight into his psychiatric illness illness and need for medication and thus not just be safe in the community, but be more successful and more able to enjoy his life. 05/10 though he seems to be taking his medication which is in disintegrating form, he remains floridly psychotic.? Refuse to talk with investment underwriter; investment underwriter tried to explain court however patient would not engage or even listen telling investment underwriter to go way 05/11 remains psychotic.? Yesterday after patient received be a medication, he ran full speed down the hallway into his bathroom and close the door; would not respond to staff and had the water running, ostensibly to wash out the medication. Did not want to talk about Court.? Discussed case with state's attorney and postponement agreed upon 05/12 Frozen Food Department Manager explained that team feels he needs admission to a state facility for longer-term admission given the fact that his pattern is to stop taking his medications soon after discharge and becomes unsafe.? Patient said no, I'm not going to do that...Not going to a state facility. 05/15 floridly psychotic and manic; refusing medications saying he does not need any; Regarding refusing medication, Says he has been cheeking his medication and not taking it anyway. Frozen Food Department Manager again discussed need for longer term admission at [facility];? patient understands teams plan for long-term admission at a state facility and says he refuses to go.? Patient sexually inappropriate with female staff asking for help masturbating.? Frozen Food Department Manager and team continue to assert that patient needs long-term admission for his safety as he always goes off his medications soon after discharge and becomes unsafe -investment underwriter and team have suspected patient has been cheeking his medications; however it is disintegrating type so it is likely at least some amount gets in.? However this makes it difficult to know how to order current dose of clozapine.? There is no other medication, despite many trials, that has been effective for patient (7 other antipsychotics tried).? Will lower the dose and keep trying to get patient to take it, expecting that some will get in his system and help him from further decompensating.? Patient however has no insight at all and has history of becoming wildly uncontrollable and unsafe when decompensated. 05/16 continues to refuse all medication and investment underwriter has had to lower clozapine dose so as to avoid adverse event, on the off chance he is willing to take it.? Refuses Ativan.? Continues to be floridly manic and psychotic with disorganized behavior and speech.? Patient's behaviors are getting more threatening and he is very difficult to redirect.? Frozen Food Department Manager discussed case with Dr. Jerez and other FOOD STYLIST.? In the event that patient becomes agitated, unsafe and needs medication restraint, investment underwriter recommends trying Thorazine 100+ mg with Ativan and Cogentin since this medication has not been tried before and most others cause severe dystonia; also Thorazine is a low potency medications similar to Seroquel which has been sedating for him in the past (and less likely to cause dystonia); Zyprexa is another option, but has limited effect in past). 05/20: Continue current treatment plan. 05/21: Encourage med adherence. PLAn: CV-revovked (pt informed but refused to discuss; mother informed who agreed and strongly felt patient needed admission to state facility) Will petition the court for involuntary commitment and substituted judgment Q 15 minute checks -Further Lower clozapine to 50mg (down from 325mg); pt has refused doses for past several days and says he's been cheeking it prior to this -Ativan 2mg TId since patient said he would only take Ativan and this medication might temper his manic, disorganized behavior; however patient has been refusing this as well If patient requires IM recommend: -Thorazine 100mg (or more) -Ativan 2mg -Congentin 1mg (patient has hx of severe dystonic reactions) -clozapine level: pending ANC 04/25? 6.0 ANC 05/02 refused x2; will retry ANC 05/03 2.0 ANC 05/09 3.0 ANC 05/11 4.7 MED TRIALS: Paliperidone: dystonia Haldol: dytonia Fluphenazine: severe dytonia olanzapine: limited effect (at therapuetic dose/duration) Seroquel: sedates, but does not treat. Abilify: no effect (at therapuetic dose/duration) Ziprasidone: no effect (at therapuetic dose/duration) Depakote: no effect (though not adequate trial) I spent minutes with the patient and/or on the patient floor today, greater than?50% of which was spent counseling/coordinating care. Reason for contiued inpatient stay Substantial Risk for: harm to self, harm to others, inability to function and rapid decompensation
[2022-05-21] MEDS: cloZAPine 25 MG TABLET 50 MG PO (13:02)
--- NOTE | 2022-05-21 13:02 | PC.NURSE ---
pt continued with loud yelling to himself self dialoging of thee voices telling him they are uypset with him and how he should just . i dont want to , why do you want me to . im not a bad person. maybe i should . i dont want to . im tird of living like this> pt became agitated in his room looking in the mirror. ripped the soap dispenser out of the wall. staff intervened and pt was able to be redirected out of his room and down to group room b. at this time this ticket writer and balwinder rn offered pt po medication zyprexa in which he took. walked with this eriter to the nurses station as he wanted celeste da. at that time stated just give me all of the meds. ativan was on hand and he took that and drankl the celeste da. i sat weith him for about 30 minutes as he cried and was self dialoging. asked for a coffee. pt stated he just wanted to leave the hospital and i had an honest conversation stating if he wasnt taking meds that likely was not going to happen. i offered to help him start taking meds as he is supposed to and he agreed. took tonights dose of clozaril. mouth checks done. pt chewed pills. stayed with pt another 10 minutes as he drank his coffee. settling down. 5 minutes checks.
--- NOTE | 2022-05-22 08:52 | PC.NURSE ---
pt is asleep for the first time in days. will attempt to obtain labs when pt is awake.
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
[2022-05-22 13:20] LABS: Neut%MD 57.2 %; Neutrophils Absolute Auto 2.8 x10*3/uL (2.0-8.3); WBCANC 4.8 X10*3/uL
[2022-05-22] MEDS: cloZAPine ODT 25 MG TAB.RAPDIS 50 MG PO (14:28)
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
[2022-05-23 13:31] LABS: Neut%MD 53.8 %; Neutrophils Absolute Auto 2.4 x10*3/uL (2.0-8.3); WBCANC 4.5 X10*3/uL
[2022-05-23 18:00] VITALS: RESP 16
[2022-05-23] MEDS: cloZAPine ODT 25 MG TAB.RAPDIS 50 MG PO (20:54)
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
[2022-05-24] MEDS: cloZAPine ODT 25 MG TAB.RAPDIS 50 MG PO (19:47)
[2022-05-25] MEDS: Nicotine Polacrilex 2 MG GUM 4 MG BUCCAL ×2 (01:30→23:42)
[2022-05-25 07:00] VITALS: BMI 21.0
[2022-05-25] MEDS: cloZAPine ODT 25 MG TAB.RAPDIS 75 MG PO (13:38)
[2022-05-26] MEDS: LORazepam 1 MG TABLET PO (09:58)
[2022-05-26] MEDS: cloZAPine ODT 25 MG TAB.RAPDIS 75 MG PO (09:58)
[2022-05-26 16:14] VITALS: RESP 16
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
[2022-05-26] MEDS: Nicotine Polacrilex 2 MG GUM 4 MG BUCCAL ×2 (20:28→23:59)
[2022-05-27] MEDS: LORazepam 1 MG TABLET PO ×3 (09:42→19:33)
[2022-05-27] MEDS: Nicotine Polacrilex 2 MG GUM 4 MG BUCCAL ×3 (09:42→20:48)
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
[2022-05-27 11:00] VITALS: BP 136/72; PULSE 86; TEMP 36.6
[2022-05-27 16:45] VITALS: BP 132/74; PULSE 92; RESP 16; TEMP 36.6; O2SAT 99
[2022-05-27] MEDS: cloZAPine ODT 25 MG TAB.RAPDIS 100 MG PO (19:32)
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
[2022-05-29 08:30] VITALS: BP 117/60; PULSE 99; TEMP 36.3
[2022-05-29] MEDS: Nicotine Polacrilex 2 MG GUM 4 MG BUCCAL ×3 (09:37→18:16)
[2022-05-29] MEDS: LORazepam 1 MG TABLET PO (09:37)
[2022-05-29 16:35] VITALS: PULSE 109; RESP 16; TEMP 36.4; O2SAT 97
[2022-05-29] MEDS: CLOZAPINE 100 MG 150 MG PO (19:53)
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
[2022-05-30] MEDS: Nicotine Polacrilex 2 MG GUM 4 MG BUCCAL ×2 (12:11→14:45)
[2022-05-30 14:55] LABS: Neut%MD 46.8 %; Neutrophils Absolute Auto 2.1 x10*3/uL (2.0-8.3); WBCANC 4.6 X10*3/uL
[2022-05-30] MEDS: CLOZAPINE 100 MG 200 MG PO (18:53)
[2022-05-31] MEDS: LORazepam 1 MG TABLET PO (09:05)
[2022-05-31] MEDS: CLOZAPINE 100 MG 200 MG PO (09:05)
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
[2022-05-31] MEDS: Nicotine Polacrilex 2 MG GUM 4 MG BUCCAL ×4 (11:45→21:52)
[2022-06-01 07:00] VITALS: BMI 21.1
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
[2022-06-01] MEDS: cloZAPine ODT 25 MG TAB.RAPDIS PO (11:24)
[2022-06-01] MEDS: CLOZAPINE 100 MG 200 MG PO (11:24)
[2022-06-01] MEDS: Nicotine Polacrilex 2 MG GUM 4 MG BUCCAL (12:54)
[2022-06-02] MEDS: cloZAPine ODT 25 MG TAB.RAPDIS 50 MG PO (09:17)
[2022-06-02] MEDS: CLOZAPINE 100 MG 200 MG PO (09:17)
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
[2022-06-02] MEDS: Nicotine Polacrilex 2 MG GUM 4 MG BUCCAL ×2 (14:52→18:16)
[2022-06-03 06:00] VITALS: BP 125/77; PULSE 86; RESP 14; TEMP 36.6; O2SAT 96
[2022-06-03] MEDS: cloZAPine ODT 25 MG TAB.RAPDIS 50 MG PO (08:59)
[2022-06-03] MEDS: CLOZAPINE 100 MG 200 MG PO (08:59)
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
[2022-06-03] MEDS: Nicotine Polacrilex 2 MG GUM 4 MG BUCCAL ×3 (09:28→18:17)
[2022-06-04] MEDS: Nicotine Polacrilex 2 MG GUM 4 MG BUCCAL ×2 (00:18→18:35)
[2022-06-04] MEDS: CLOZAPINE 100 MG 300 MG PO (08:05)
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
[2022-06-05] MEDS: Nicotine Polacrilex 2 MG GUM 4 MG BUCCAL ×2 (00:08→09:56)
[2022-06-05 06:00] VITALS: BP 138/78; PULSE 120; RESP 16; TEMP 36.1; O2SAT 99
[2022-06-05] MEDS: CLOZAPINE 100 MG 300 MG PO (08:39)
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
[2022-06-06] MEDS: Nicotine Polacrilex 2 MG GUM 4 MG BUCCAL ×3 (01:04→21:32)
[2022-06-06] MEDS: CLOZAPINE 100 MG 300 MG PO (09:07)
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
[2022-06-06 16:44] VITALS: RESP 16
[2022-06-07] MEDS: Nicotine Polacrilex 2 MG GUM 4 MG BUCCAL ×4 (00:18→21:29)
[2022-06-07 08:02] VITALS: BP 121/71; PULSE 76; RESP 16; TEMP 36.4; O2SAT 99
[2022-06-07 10:37] LABS: MANUAL DIFF FLAG NO
[2022-06-07 10:41] LABS: Neut%MD 50.2 %; Neutrophils Absolute Auto 2.7 x10*3/uL (2.0-8.3); WBCANC 5.3 X10*3/uL
[2022-06-07 10:42] LABS: Basophils Absolute Auto 0.1 X10*3/uL (0.0-0.2); Basophils Percent Auto 0.9 % (0-2); Eosinophils Absolute Auto 0.2 X10*3/uL (0.0-0.4); Eosinophils Percent Auto 2.7 % (0-4); Hematocrit 44.1 % (42.0-52.0); Hemoglobin 15.5 g/dl (14.0-18.0); Imm Gran Abs Auto 0.01 X10*3/uL (0.00-0.03); Imm Gran Pct Auto 0.2 % (0.0-0.4); Lymphocytes Absolute Auto 2.1 X10*3/uL (1.2-4.9); Lymphocytes Percent Auto 38.4 % (20-40); Mean Corpuscular HGB Conc 35.1 g/dl (31.0-36.0); Mean Corpuscular Hemoglobin 30.9 pg (27.0-33.0); Mean Corpuscular Volume 87.8 fL (80.0-98.0); Mean Platelet Volume 9.6 fL (9.4-12.4); Monocytes Absolute Auto 0.5 X10*3/uL (0.1-1.2); Monocytes Percent Auto 8.2 % (2-11); Neutrophils Absolute Auto 2.7 x10*3/uL (2.0-8.3); Neutrophils Percent Auto 49.6 % (45-73); Platelet Count 182 X10*3/uL (160-400); Red Blood Count 5.02 X10*6/uL (4.60-5.80); White Blood Count 5.5 X10*3/uL (4.8-10.8)
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
[2022-06-08 06:00] VITALS: BP 115/58; PULSE 74; RESP 14; TEMP 35.9; O2SAT 99
[2022-06-08] MEDS: Nicotine Polacrilex 2 MG GUM 4 MG BUCCAL ×2 (13:14→18:33)
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
[2022-06-09] MEDS: Nicotine Polacrilex 2 MG GUM 4 MG BUCCAL ×4 (01:43→23:11)
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
[2022-06-10 06:00] VITALS: RESP 16
[2022-06-10] MEDS: Nicotine Polacrilex 2 MG GUM 4 MG BUCCAL ×2 (10:06→18:40)
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
[2022-06-10 18:00] VITALS: RESP 16
[2022-06-11 07:30] VITALS: BP 124/70; PULSE 107; RESP 16; TEMP 36.2; O2SAT 95
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
[2022-06-11 17:04] VITALS: RESP 16
[2022-06-12 08:00] VITALS: BP 120/74; PULSE 92; TEMP 36.3
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
[2022-06-12] MEDS: Nicotine Polacrilex 2 MG GUM 4 MG BUCCAL (09:11)
[2022-06-12 14:27] LABS: Clozapine (Clozaril) 183 mcg/L; Norclozapine 89 mcg/L (25-400)
[2022-06-13] MEDS: Nicotine Polacrilex 2 MG GUM 4 MG BUCCAL ×5 (03:02→21:19)
[2022-06-13 06:00] VITALS: PULSE 126; RESP 14; TEMP 36.6; O2SAT 99
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
[2022-06-14 09:10] VITALS: PULSE 126; TEMP 36.3; O2SAT 97
[2022-06-14] MEDS: Nicotine Polacrilex 2 MG GUM 4 MG BUCCAL ×5 (09:23→19:13)
[2022-06-14 11:29] LABS: Neut%MD 62.7 %; Neutrophils Absolute Auto 3.7 x10*3/uL (2.0-8.3); WBCANC 5.9 X10*3/uL
[2022-06-14 16:26] VITALS: PULSE 131; RESP 16; TEMP 36.9; O2SAT 98
[2022-06-15] MEDS: Nicotine Polacrilex 2 MG GUM 4 MG BUCCAL ×2 (00:30→17:42)
[2022-06-15 06:00] VITALS: BP 136/65; PULSE 92; RESP 17; TEMP 36.4; O2SAT 98
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
[2022-06-15] MEDS: CLOZAPINE 100 MG 300 MG PO ×2 (08:24→19:58)
[2022-06-15] MEDS: cloZAPine ODT 25 MG TAB.RAPDIS 50 MG PO (08:24)
--- NOTE | 2022-06-16 05:32 | PC.NURSE ---
medication error made by provider. pt received 650mg of Clozaril on 06/15/22 instead of 350mg due to a double order. pt stable and being monitored by RNs. respiratory rate 11 and pt is sedated but arousable. refused vital signs. continue to monitor. MD, director, and clinical coordinator made aware.
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
[2022-06-16 13:00] VITALS: BP 143/67; PULSE 95; TEMP 36.3
[2022-06-16] MEDS: LORazepam 1 MG TABLET 2 MG PO (13:00)
[2022-06-16] MEDS: Nicotine Polacrilex 2 MG GUM 4 MG BUCCAL ×3 (14:58→21:49)
[2022-06-16 15:54] VITALS: BMI 21.5
[2022-06-16 15:55] VITALS: BP 120/74; PULSE 105; TEMP 36.3
--- NOTE | 2022-06-17 | ECG_ITS ---
Test Reason : chest pain, change in mental satues Blood Pressure : / mmHG Vent. Rate : 095 BPM Atrial Rate : 095 BPM P-R Int : 128 ms QRS Dur : 086 ms QT Int : 346 ms P-R-T Axes : 069 083 046 degrees QTc Int : 434 ms Sinus rhythm with marked sinus arrhythmia Otherwise normal ECG When compared with ECG of 25-APR-2022 19:47, No significant change was found Heart rate has increased Referred By: Cyril Monte Electronically Signed By:MICHAEL MUSE MD
[2022-06-17] MEDS: cloZAPine ODT 25 MG TAB.RAPDIS 75 MG PO (09:42)
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
[2022-06-17] MEDS: CLOZAPINE 100 MG 300 MG PO (15:26)
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
[2022-06-18] MEDS: Nicotine Polacrilex 2 MG GUM 4 MG BUCCAL ×4 (11:49→23:37)
[2022-06-18 13:32] VITALS: BP 150/71; PULSE 120; RESP 14; TEMP 36.8; O2SAT 95
[2022-06-18] MEDS: LORazepam 1 MG TABLET 2 MG PO (20:52)
[2022-06-18] MEDS: CLOZAPINE 100 MG 375 MG PO (22:59)
[2022-06-19 06:00] VITALS: BP 170/90; PULSE 110; RESP 16; TEMP 36.9
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
[2022-06-19] MEDS: Nicotine Polacrilex 2 MG GUM 4 MG BUCCAL ×5 (09:57→19:19)
--- NOTE | 2022-06-19 13:16 | PC.NURSE ---
pt denies chest pain when asked. stated he felt fine. did c/o chest pain on 06/17. bp elevated 170/90 pulse 110. laughing and joking in hallway. dr. torres aware via tiger text.
[2022-06-19] MEDS: CLOZAPINE 100 MG 300 MG PO (15:41)
[2022-06-19] MEDS: cloZAPine ODT 25 MG TAB.RAPDIS 75 MG PO (15:42)
[2022-06-20 07:49] VITALS: BP 132/90; PULSE 102; RESP 18; TEMP 36.7; O2SAT 98
[2022-06-20] MEDS: Nicotine Polacrilex 2 MG GUM 4 MG BUCCAL ×3 (08:52→18:09)
[2022-06-20 10:19] LABS: COVID-19 Test Negative (Negative); IDNOW Serial# 16C4AD1C
[2022-06-20 10:32] LABS: Influenza A PCR NEGATIVE (Negative); Influenza B PCR NEGATIVE (Negative); Resp Syncy Virus RNA Qual PCR NEGATIVE (Negative); SARS COV2 PCR INHOUSE NEGATIVE (Negative)
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
[2022-06-20] MEDS: LORazepam 1 MG TABLET 2 MG PO (16:08)
[2022-06-20 16:25] VITALS: BP 167/68; PULSE 115; TEMP 37.1
[2022-06-20] MEDS: cloZAPine ODT 25 MG TAB.RAPDIS 75 MG PO (17:24)
[2022-06-20] MEDS: CLOZAPINE 100 MG 300 MG PO (17:24)
[2022-06-21 08:01] VITALS: BP 112/78; PULSE 102; RESP 18; TEMP 37; O2SAT 97
[2022-06-21 09:37] LABS: Neut%MD 53.9 %; WBCANC 5.5 X10*3/uL
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
[2022-06-21] MEDS: Nicotine Polacrilex 2 MG GUM 4 MG BUCCAL ×4 (09:47→22:18)
[2022-06-21] MEDS: LORazepam 1 MG TABLET 2 MG PO (16:47)
[2022-06-22] MEDS: cloZAPine ODT 25 MG TAB.RAPDIS 75 MG PO (11:37)
[2022-06-22] MEDS: CLOZAPINE 100 MG 300 MG PO (11:37)
[2022-06-22] MEDS: Nicotine Polacrilex 2 MG GUM 4 MG BUCCAL ×2 (11:39→17:44)
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
[2022-06-22] MEDS: LORazepam 1 MG TABLET 2 MG PO (17:44)
[2022-06-22 18:00] VITALS: BP 118/69; PULSE 97; RESP 16; TEMP 36.8; O2SAT 99
[2022-06-23] MEDS: Nicotine Polacrilex 2 MG GUM 4 MG BUCCAL ×2 (10:16→18:35)
[2022-06-23] MEDS: CLOZAPINE 100 MG 300 MG PO (12:25)
[2022-06-23] MEDS: cloZAPine ODT 25 MG TAB.RAPDIS 75 MG PO (12:25)
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
[2022-06-24] MEDS: cloZAPine ODT 25 MG TAB.RAPDIS 75 MG PO (11:35)
[2022-06-24] MEDS: Nicotine Polacrilex 2 MG GUM 4 MG BUCCAL ×4 (11:35→19:47)
[2022-06-24] MEDS: CLOZAPINE 100 MG 300 MG PO (11:35)
[2022-06-24 16:38] VITALS: PULSE 100; TEMP 36.8; O2SAT 97
[2022-06-25] MEDS: CLOZAPINE 100 MG 300 MG PO (09:40)
[2022-06-25] MEDS: cloZAPine ODT 25 MG TAB.RAPDIS 75 MG PO (09:40)
[2022-06-25] MEDS: Nicotine Polacrilex 2 MG GUM 4 MG BUCCAL ×2 (10:30→18:21)
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
[2022-06-26] MEDS: Nicotine Polacrilex 2 MG GUM 4 MG BUCCAL ×4 (01:55→18:55)
[2022-06-26] MEDS: cloZAPine ODT 25 MG TAB.RAPDIS 75 MG PO (08:49)
[2022-06-26] MEDS: CLOZAPINE 100 MG 300 MG PO (08:50)
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
[2022-06-27 09:15] VITALS: RESP 16
[2022-06-27] MEDS: cloZAPine ODT 25 MG TAB.RAPDIS 75 MG PO (09:32)
[2022-06-27] MEDS: CLOZAPINE 100 MG 300 MG PO (09:32)
[2022-06-27] MEDS: Nicotine Polacrilex 2 MG GUM 4 MG BUCCAL ×4 (09:37→23:46)
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
[2022-06-27 18:00] VITALS: BP 148/80; PULSE 60; RESP 20; TEMP 36.9; O2SAT 99
[2022-06-28 07:47] VITALS: BP 117/71; PULSE 97; RESP 16; TEMP 36.7; O2SAT 97
[2022-06-28] MEDS: cloZAPine ODT 25 MG TAB.RAPDIS 75 MG PO (08:49)
[2022-06-28] MEDS: CLOZAPINE 100 MG 300 MG PO (08:49)
[2022-06-28] MEDS: Nicotine Polacrilex 2 MG GUM 4 MG BUCCAL ×2 (08:51→17:53)
[2022-06-28 09:02] LABS: Neut%MD 55.6 %; Neutrophils Absolute Auto 3.1 x10*3/uL (2.0-8.3); WBCANC 5.6 X10*3/uL
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
[2022-06-29] MEDS: CLOZAPINE 100 MG 300 MG PO (09:03)
[2022-06-29] MEDS: cloZAPine ODT 25 MG TAB.RAPDIS 75 MG PO (09:03)
[2022-06-29] MEDS: Nicotine Polacrilex 2 MG GUM 4 MG BUCCAL ×2 (09:32→13:45)
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
[2022-06-29] MEDS: LORazepam 1 MG TABLET 2 MG PO (13:45)
[2022-06-29 14:00] VITALS: TEMP 36.2
[2022-06-29 18:00] VITALS: RESP 18
[2022-06-30] MEDS: Nicotine Polacrilex 2 MG GUM 4 MG BUCCAL ×2 (00:57→11:42)
[2022-06-30 08:30] VITALS: BP 137/76; PULSE 98; TEMP 36.6
[2022-06-30] MEDS: LORazepam 1 MG TABLET 2 MG PO (09:11)
[2022-06-30] MEDS: CLOZAPINE 100 MG 300 MG PO (11:17)
[2022-06-30] MEDS: cloZAPine ODT 25 MG TAB.RAPDIS 75 MG PO (11:17)
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
[2022-07-01] MEDS: CLOZAPINE 100 MG 300 MG PO (09:16)
[2022-07-01] MEDS: cloZAPine ODT 25 MG TAB.RAPDIS 75 MG PO (09:16)
[2022-07-01] MEDS: Nicotine Polacrilex 2 MG GUM 4 MG BUCCAL ×6 (09:26→23:59)
[2022-07-01] MEDS: LORazepam 1 MG TABLET 2 MG PO (17:53)
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
[2022-07-02 06:00] VITALS: BP 117/72; PULSE 97; RESP 16; TEMP 36.7; O2SAT 98
[2022-07-02] MEDS: cloZAPine ODT 25 MG TAB.RAPDIS 75 MG PO (09:02)
[2022-07-02] MEDS: Nicotine Polacrilex 2 MG GUM 4 MG BUCCAL ×3 (09:02→23:04)
[2022-07-02] MEDS: CLOZAPINE 100 MG 300 MG PO (09:02)
[2022-07-02 17:50] VITALS: RESP 18
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
[2022-07-03 01:19] LABS: Clozapine (Clozaril) 78 mcg/L; Norclozapine 68 mcg/L (25-400)
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
[2022-07-03 09:00] VITALS: TEMP 36.6
[2022-07-03] MEDS: CLOZAPINE 100 MG 400 MG PO (10:22)
[2022-07-03] MEDS: LORazepam 1 MG TABLET PO (10:23)
[2022-07-03 16:45] VITALS: RESP 16
[2022-07-03] MEDS: Nicotine Polacrilex 2 MG GUM 4 MG BUCCAL (17:27)
[2022-07-04] MEDS: Nicotine Polacrilex 2 MG GUM 4 MG BUCCAL ×3 (00:43→20:00)
[2022-07-04 06:00] VITALS: RESP 18
[2022-07-04] MEDS: LORazepam 1 MG TABLET PO (09:52)
[2022-07-04] MEDS: CLOZAPINE 100 MG 400 MG PO (10:25)
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
[2022-07-05 09:29] LABS: Neutrophils Absolute Auto 3.6 x10*3/uL (2.0-8.3); WBCANC 6.1 X10*3/uL
--- NOTE | 2022-07-05 09:31 | PC.NURSE ---
pt refused labs & vitals. Per provider: hold clozaril until after evaluation at team meeting; clozaril held.
[2022-07-05] MEDS: Nicotine Polacrilex 2 MG GUM 4 MG BUCCAL ×3 (09:55→16:11)
[2022-07-05] MEDS: CLOZAPINE 100 MG 400 MG PO (11:12)
[2022-07-05 16:55] VITALS: BP 108/70; PULSE 128; TEMP 36.1; O2SAT 96
[2022-07-06] MEDS: Nicotine Polacrilex 2 MG GUM 4 MG BUCCAL ×3 (01:38→10:45)
[2022-07-06] MEDS: CLOZAPINE 100 MG 400 MG PO (10:43)
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
[2022-07-06 18:00] VITALS: BP 132/78; PULSE 78; RESP 16; TEMP 36.4; O2SAT 98
[2022-07-07] MEDS: CLOZAPINE 100 MG 400 MG PO (09:40)
[2022-07-07] MEDS: Nicotine Polacrilex 2 MG GUM 4 MG BUCCAL ×4 (09:40→23:38)
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
[2022-07-07 18:00] VITALS: BP 128/82; PULSE 85; RESP 16; TEMP 36.6; O2SAT 98
[2022-07-08 08:30] VITALS: BP 156/71; PULSE 106; TEMP 36.2
[2022-07-08] MEDS: CLOZAPINE 100 MG 400 MG PO (09:32)
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
[2022-07-09] MEDS: Nicotine Polacrilex 2 MG GUM 4 MG BUCCAL ×4 (05:00→22:45)
[2022-07-09 08:30] VITALS: BP 122/50; PULSE 138; TEMP 37
[2022-07-09] MEDS: CLOZAPINE 100 MG 400 MG PO (09:42)
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
[2022-07-09 18:00] VITALS: BP 128/79; PULSE 89; RESP 16; TEMP 36.4; O2SAT 99
[2022-07-10] MEDS: CLOZAPINE 100 MG 400 MG PO (09:02)
[2022-07-10] MEDS: Nicotine Polacrilex 2 MG GUM 4 MG BUCCAL ×6 (09:04→23:35)
[2022-07-10] MEDS: LORazepam 1 MG TABLET 2 MG PO ×2 (12:53→23:35)
[2022-07-10 16:17] VITALS: BP 145/87; PULSE 120; RESP 18; TEMP 36.7; O2SAT 98
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
[2022-07-11 09:03] VITALS: BP 120/62; PULSE 100; RESP 16; TEMP 36.8; O2SAT 98
[2022-07-11] MEDS: Nicotine Polacrilex 2 MG GUM 4 MG BUCCAL ×3 (09:11→20:55)
[2022-07-11] MEDS: CLOZAPINE 100 MG 400 MG PO (09:23)
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
[2022-07-11 18:00] VITALS: BP 118/68; PULSE 92; RESP 16; TEMP 36.4; O2SAT 99
[2022-07-12] MEDS: Nicotine Polacrilex 2 MG GUM 4 MG BUCCAL ×2 (08:10→17:09)
[2022-07-12] MEDS: CLOZAPINE 100 MG 400 MG PO (09:06)
[2022-07-12 09:26] LABS: Neut%MD 58.5 %; Neutrophils Absolute Auto 3.2 x10*3/uL (2.0-8.3); WBCANC 5.4 X10*3/uL
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
[2022-07-12 18:00] VITALS: BP 122/76; PULSE 84; RESP 16; TEMP 36.6; O2SAT 99
[2022-07-13 06:00] VITALS: BP 128/78; PULSE 122; RESP 16; TEMP 36.4; O2SAT 97
[2022-07-13] MEDS: CLOZAPINE 100 MG 400 MG PO (08:45)
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
[2022-07-13] MEDS: Nicotine Polacrilex 2 MG GUM 4 MG BUCCAL (17:19)
[2022-07-13 18:00] VITALS: BP 124/68; PULSE 74; RESP 16; TEMP 36.6; O2SAT 97
[2022-07-14] MEDS: Nicotine Polacrilex 2 MG GUM 4 MG BUCCAL ×5 (01:23→20:21)
[2022-07-14 06:00] VITALS: BP 132/70; PULSE 108; RESP 16; TEMP 36.5; O2SAT 97
[2022-07-14] MEDS: CLOZAPINE 100 MG 400 MG PO (08:39)
[2022-07-14] MEDS: Magnesium Hydrox/Alum Hydrox 30 ML ORAL.SUSP PO (13:44)
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
[2022-07-15] MEDS: Nicotine Polacrilex 2 MG GUM 4 MG BUCCAL ×2 (00:35→20:25)
[2022-07-15] MEDS: CLOZAPINE 100 MG 400 MG PO (08:34)
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
[2022-07-16 08:00] VITALS: BP 95/58; PULSE 124; RESP 18; TEMP 35.6; O2SAT 96
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
[2022-07-16] MEDS: CLOZAPINE 100 MG 400 MG PO (08:30)
[2022-07-16] MEDS: Nicotine Polacrilex 2 MG GUM 4 MG BUCCAL ×3 (08:30→22:40)
[2022-07-16 18:00] VITALS: RESP 16
[2022-07-17] MEDS: Nicotine Polacrilex 2 MG GUM 4 MG BUCCAL ×3 (02:19→17:28)
[2022-07-17 06:00] VITALS: BP 128/77; PULSE 104; RESP 14; TEMP 36.6; O2SAT 94
[2022-07-17] MEDS: CLOZAPINE 100 MG 400 MG PO (09:15)
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
[2022-07-17 17:29] VITALS: BP 119/65; PULSE 115; RESP 18
[2022-07-18] MEDS: Nicotine Polacrilex 2 MG GUM 4 MG BUCCAL ×4 (09:16→22:45)
[2022-07-18] MEDS: CLOZAPINE 100 MG 400 MG PO (09:16)
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
[2022-07-19] MEDS: Nicotine Polacrilex 2 MG GUM 4 MG BUCCAL ×6 (00:38→21:44)
[2022-07-19] MEDS: QUEtiapine Fumarate 100 MG TABLET PO (00:52)
[2022-07-19] MEDS: CLOZAPINE 100 MG 400 MG PO (08:52)
[2022-07-19 14:09] LABS: COVID-19 Test Negative (Negative); IDNOW Serial# BCCEAD1C
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
[2022-07-20 08:46] LABS: Neutrophils Absolute Auto 2.9 x10*3/uL (2.0-8.3); WBCANC 5.1 X10*3/uL
[2022-07-20] MEDS: CLOZAPINE 100 MG 400 MG PO (09:29)
[2022-07-20] MEDS: Nicotine Polacrilex 2 MG GUM 4 MG BUCCAL ×4 (09:46→23:13)
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
[2022-07-21] MEDS: CLOZAPINE 100 MG 400 MG PO (08:16)
[2022-07-21] MEDS: Nicotine Polacrilex 2 MG GUM 4 MG BUCCAL ×5 (08:29→22:54)
[2022-07-21 08:40] VITALS: BP 126/66; PULSE 91; RESP 16; TEMP 36.3; O2SAT 97
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
[2022-07-21 13:16] LABS: COVID-19 Test Negative (Negative); IDNOW Serial# 9DB6401D
[2022-07-21 18:00] VITALS: RESP 16
[2022-07-22] MEDS: Nicotine Polacrilex 2 MG GUM 4 MG BUCCAL ×2 (00:31→22:25)
[2022-07-22] MEDS: QUEtiapine Fumarate 50 MG TABLET PO (00:31)
[2022-07-22] MEDS: CLOZAPINE 100 MG 400 MG PO (10:34)
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
[2022-07-23] MEDS: Nicotine Polacrilex 2 MG GUM 4 MG BUCCAL ×5 (00:18→21:51)
[2022-07-23] MEDS: QUEtiapine Fumarate 50 MG TABLET PO (00:18)
[2022-07-23 06:00] VITALS: BP 127/96; PULSE 120; RESP 14; TEMP 36.8; O2SAT 98
[2022-07-23] MEDS: CLOZAPINE 100 MG 400 MG PO (08:53)
[2022-07-23 10:14] LABS: COVID-19 Test Negative (Negative); IDNOW Serial# 6674DD1D
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
[2022-07-23 18:00] VITALS: BP 118/68; PULSE 68; RESP 16; TEMP 36.4; O2SAT 98
[2022-07-24] MEDS: Nicotine Polacrilex 2 MG GUM 4 MG BUCCAL ×3 (00:29→18:13)
[2022-07-24 06:00] VITALS: BP 121/71; PULSE 98; RESP 16; TEMP 36.7; O2SAT 97
[2022-07-24] MEDS: CLOZAPINE 100 MG 400 MG PO (09:45)
[2022-07-24 18:00] VITALS: TEMP 35.9
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
[2022-07-25] MEDS: Nicotine Polacrilex 2 MG GUM 4 MG BUCCAL ×6 (01:37→22:26)
[2022-07-25] MEDS: CLOZAPINE 100 MG 400 MG PO (10:19)
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
[2022-07-25 18:00] VITALS: BP 128/78; PULSE 82; RESP 16; TEMP 36.4; O2SAT 98
[2022-07-26] MEDS: Nicotine Polacrilex 2 MG GUM 4 MG BUCCAL ×5 (00:37→21:37)
[2022-07-26] MEDS: CLOZAPINE 100 MG 400 MG PO (09:09)
[2022-07-26 09:20] LABS: Neut%MD 47.5 %; Neutrophils Absolute Auto 3.2 x10*3/uL (2.0-8.3); WBCANC 6.8 X10*3/uL
[2022-07-26 18:00] VITALS: BP 104/64; PULSE 121; RESP 16; TEMP 36.7; O2SAT 97
[2022-07-27] MEDS: Nicotine Polacrilex 2 MG GUM 4 MG BUCCAL ×6 (00:20→23:35)
[2022-07-27] MEDS: CLOZAPINE 100 MG 400 MG PO (09:04)
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
[2022-07-28] MEDS: Nicotine Polacrilex 2 MG GUM 4 MG BUCCAL ×4 (01:31→23:10)
[2022-07-28] MEDS: CLOZAPINE 100 MG 400 MG PO (08:19)
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
[2022-07-29] MEDS: CLOZAPINE 100 MG 400 MG PO (10:27)
[2022-07-29] MEDS: Nicotine Polacrilex 2 MG GUM 4 MG BUCCAL ×4 (10:33→22:04)
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
[2022-07-30] MEDS: Nicotine Polacrilex 2 MG GUM 4 MG BUCCAL ×4 (00:27→09:29)
[2022-07-30] MEDS: CLOZAPINE 100 MG 400 MG PO (09:28)
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
[2022-07-31] MEDS: CLOZAPINE 100 MG 400 MG PO (09:08)
[2022-07-31] MEDS: Nicotine Polacrilex 2 MG GUM 4 MG BUCCAL (09:10)
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
[2022-08-01] MEDS: CLOZAPINE 100 MG 400 MG PO (10:51)
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
[2022-08-01 18:00] VITALS: RESP 16
[2022-08-02] MEDS: CLOZAPINE 100 MG 400 MG PO (09:11)
[2022-08-02 09:24] LABS: Neut%MD 49.3 %; WBCANC 6.1 X10*3/uL
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
[2022-08-02 20:20] VITALS: BP 115/58; PULSE 114; TEMP 36.8; O2SAT 98
[2022-08-03 07:00] VITALS: BMI 21.9
[2022-08-03] MEDS: CLOZAPINE 100 MG 400 MG PO (09:02)
[2022-08-03 13:52] VITALS: BMI 21.9
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
[2022-08-03 17:47] VITALS: PULSE 120; RESP 18; TEMP 36.5; O2SAT 99
[2022-08-04 06:00] VITALS: BP 130/82; PULSE 99; RESP 14; TEMP 36.6; O2SAT 97
[2022-08-04] MEDS: CLOZAPINE 100 MG 400 MG PO (09:04)
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
[2022-08-04 21:56] VITALS: RESP 14; TEMP 37.1
[2022-08-05 06:00] VITALS: RESP 16
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
[2022-08-05] MEDS: CLOZAPINE 100 MG 400 MG PO (11:19)
[2022-08-05] MEDS: Nicotine Polacrilex 2 MG GUM 4 MG BUCCAL ×3 (11:38→22:12)
[2022-08-06] MEDS: Nicotine Polacrilex 2 MG GUM 4 MG BUCCAL ×6 (00:13→23:51)
[2022-08-06 08:27] VITALS: BP 114/79; PULSE 112; RESP 20; TEMP 36.3; O2SAT 99
[2022-08-06] MEDS: CLOZAPINE 100 MG 400 MG PO (09:29)
--- NOTE | 2022-08-06 14:33 | PC.NURSE ---
[facility] advocate visited at 14:30 for Filipe however he was sleeping d/t being up all night. Will return next week on Sunday @14:00-14:30.
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
[2022-08-06 18:00] VITALS: BP 119/68; PULSE 75; RESP 16; TEMP 36.6; O2SAT 98
[2022-08-06 23:18] LABS: Clozapine (Clozaril) 147 mcg/L; Norclozapine 115 mcg/L (25-400)
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
[2022-08-07] MEDS: CLOZAPINE 100 MG 400 MG PO (09:34)
[2022-08-07] MEDS: cloZAPine ODT 25 MG TAB.RAPDIS PO (09:34)
[2022-08-07] MEDS: Nicotine Polacrilex 2 MG GUM 4 MG BUCCAL ×3 (17:29→23:59)
[2022-08-07 18:00] VITALS: RESP 18
[2022-08-08] MEDS: Nicotine Polacrilex 2 MG GUM 4 MG BUCCAL ×6 (01:58→21:50)
[2022-08-08 08:35] VITALS: BP 137/86; PULSE 98; RESP 16; TEMP 36.8; O2SAT 96
[2022-08-08] MEDS: cloZAPine ODT 25 MG TAB.RAPDIS PO (09:24)
[2022-08-08] MEDS: CLOZAPINE 100 MG 400 MG PO (09:24)
[2022-08-08 21:40] VITALS: BP 143/61; PULSE 113; TEMP 36.2
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
[2022-08-09 09:02] LABS: Neut%MD 54.8 %; Neutrophils Absolute Auto 3.5 x10*3/uL (2.0-8.3); WBCANC 6.4 X10*3/uL
[2022-08-09] MEDS: Nicotine Polacrilex 2 MG GUM 4 MG BUCCAL ×4 (09:20→23:29)
[2022-08-09] MEDS: cloZAPine ODT 25 MG TAB.RAPDIS PO (12:46)
[2022-08-09] MEDS: CLOZAPINE 100 MG 400 MG PO (12:47)
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
[2022-08-09 13:11] VITALS: BP 114/82; PULSE 101; RESP 16; TEMP 36.7; O2SAT 98
[2022-08-09 18:00] VITALS: RESP 18
[2022-08-10] MEDS: Nicotine Polacrilex 2 MG GUM 4 MG BUCCAL ×3 (01:30→23:41)
[2022-08-10 06:00] VITALS: PULSE 106; RESP 18; TEMP 36.3; O2SAT 98
[2022-08-10] MEDS: cloZAPine ODT 25 MG TAB.RAPDIS PO (09:08)
[2022-08-10] MEDS: CLOZAPINE 100 MG 400 MG PO (09:09)
[2022-08-11] MEDS: Nicotine Polacrilex 2 MG GUM 4 MG BUCCAL ×3 (03:43→15:46)
[2022-08-11 06:00] VITALS: BP 140/64; PULSE 93; RESP 14; TEMP 36.8; O2SAT 98
[2022-08-11] MEDS: cloZAPine ODT 25 MG TAB.RAPDIS PO (08:54)
[2022-08-11] MEDS: CLOZAPINE 100 MG 400 MG PO (08:54)
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
[2022-08-11 22:00] VITALS: BP 139/57; PULSE 118; TEMP 36.2
[2022-08-12] MEDS: CLOZAPINE 100 MG 400 MG PO (10:01)
[2022-08-12] MEDS: cloZAPine ODT 25 MG TAB.RAPDIS PO (10:02)
[2022-08-12] MEDS: Nicotine Polacrilex 2 MG GUM 4 MG BUCCAL ×5 (10:02→22:53)
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
[2022-08-12 18:00] VITALS: RESP 14
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
[2022-08-13] MEDS: Nicotine Polacrilex 2 MG GUM 4 MG BUCCAL ×6 (01:43→22:39)
[2022-08-13 06:00] VITALS: BP 124/68; PULSE 120; RESP 14; TEMP 36.6; O2SAT 97
[2022-08-13] MEDS: CLOZAPINE 100 MG 400 MG PO (09:13)
[2022-08-13] MEDS: cloZAPine ODT 25 MG TAB.RAPDIS PO (09:14)
[2022-08-13 18:00] VITALS: BP 126/66; RESP 14
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
[2022-08-14] MEDS: Nicotine Polacrilex 2 MG GUM 4 MG BUCCAL ×2 (09:29→23:37)
[2022-08-14] MEDS: CLOZAPINE 100 MG 400 MG PO (09:29)
[2022-08-14] MEDS: cloZAPine ODT 25 MG TAB.RAPDIS PO (09:29)
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
[2022-08-15] MEDS: CLOZAPINE 100 MG 400 MG PO (09:01)
[2022-08-15] MEDS: cloZAPine ODT 25 MG TAB.RAPDIS PO (09:01)
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
[2022-08-15] MEDS: Nicotine Polacrilex 2 MG GUM 4 MG BUCCAL (16:53)
[2022-08-15 18:00] VITALS: BP 129/64; PULSE 123; RESP 20; TEMP 36.2; O2SAT 97
[2022-08-16 06:00] VITALS: RESP 16
[2022-08-16 08:41] LABS: Neut%MD 55.6 %; WBCANC 5.4 X10*3/uL
[2022-08-16] MEDS: CLOZAPINE 100 MG 400 MG PO (08:53)
[2022-08-16] MEDS: cloZAPine ODT 25 MG TAB.RAPDIS PO (08:53)
[2022-08-16] MEDS: Nicotine Polacrilex 2 MG GUM 4 MG BUCCAL ×4 (08:55→22:34)
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
[2022-08-16 21:30] VITALS: BP 118/79; PULSE 116; TEMP 35.9
[2022-08-17] MEDS: Nicotine Polacrilex 2 MG GUM 4 MG BUCCAL (05:29)
[2022-08-17] MEDS: CLOZAPINE 100 MG 400 MG PO (08:57)
[2022-08-17] MEDS: cloZAPine ODT 25 MG TAB.RAPDIS PO (08:57)
[2022-08-17] MEDS: Magnesium Hydrox/Alum Hydrox 30 ML ORAL.SUSP PO (09:01)
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
[2022-08-18 06:00] VITALS: BP 138/67; PULSE 107; RESP 14; TEMP 36.6; O2SAT 98
[2022-08-18] MEDS: cloZAPine ODT 25 MG TAB.RAPDIS PO (08:52)
[2022-08-18] MEDS: CLOZAPINE 100 MG 400 MG PO (08:52)
[2022-08-18] MEDS: Nicotine Polacrilex 2 MG GUM 4 MG BUCCAL ×7 (08:55→23:22)
--- NOTE | 2022-08-18 18:41 | P.PNPSI_ITS ---
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 hopefully give him a chance to develop insight which will hopefully in turn give him a chance to be safe in the community. MED TRIALS: Paliperidone: dystonia Haldol: dytonia Fluphenazine: severe dystonia olanzapine: limited effect (at therapuetic dose/duration) Seroquel: sedates, but does not treat. Abilify: no effect (at therapuetic dose/duration) Ziprasidone: no effect (at therapuetic dose/duration) Depakote: no effect (though not adequate trial) Patient educated on: medication risk/benefits Informed Consent: understands, does not understand and further education needed Reason for contiued inpatient stay Substantial Risk for: inability to function Time Spent With Patient Time: Total time managing care of this patient today ____ minutes.
[2022-08-18] MEDS: Magnesium Hydrox/Alum Hydrox 30 ML ORAL.SUSP PO (19:42)
[2022-08-19] MEDS: Nicotine Polacrilex 2 MG GUM 4 MG BUCCAL ×2 (01:55→21:40)
[2022-08-19 06:00] VITALS: RESP 18
[2022-08-19] MEDS: CLOZAPINE 100 MG 400 MG PO (09:58)
[2022-08-19] MEDS: cloZAPine ODT 25 MG TAB.RAPDIS 50 MG PO (09:59)
--- NOTE | 2022-08-19 12:10 | HO.PSYCHPN ---
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 the discharge and again becomes unsafe. Patient has never been to higher dose of clozapine than 300mg at which dose he remains psychotic w/out insight.? Application to [facility] is effort to help patient further stabilize and for a longer period of time which will hopefully give him a chance to develop insight which will hopefully in turn give him a chance to be safe in the community. MED TRIALS: Paliperidone: dystonia Haldol: dytonia Fluphenazine: severe dystonia olanzapine: limited effect (at therapuetic dose/duration) Seroquel: sedates, but does not treat. Abilify: no effect (at therapuetic dose/duration) Ziprasidone: no effect (at therapuetic dose/duration) Depakote: no effect (though not adequate trial) Reason for contiued inpatient stay Substantial Risk for: harm to others, inability to function and rapid decompensation Time Spent With Patient Time: Total time managing care of this patient today ____ minutes.
[2022-08-20] MEDS: cloZAPine ODT 25 MG TAB.RAPDIS 50 MG PO (09:37)
[2022-08-20] MEDS: CLOZAPINE 100 MG 400 MG PO (09:37)
[2022-08-20] MEDS: Nicotine Polacrilex 2 MG GUM 4 MG BUCCAL ×4 (09:37→22:39)
--- NOTE | 2022-08-20 15:15 | HO.PSYCHPN ---
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 becomes unsafe. Patient has never been to higher dose of clozapine than 300mg at which dose he remains psychotic w/out insight.? Application to [facility] is effort to help patient further stabilize and for a longer period of time which will hopefully give him a chance to develop insight which will hopefully in turn give him a chance to be safe in the community. MED TRIALS: Paliperidone: dystonia Haldol: dytonia Fluphenazine: severe dystonia olanzapine: limited effect (at therapuetic dose/duration) Seroquel: sedates, but does not treat. Abilify: no effect (at therapuetic dose/duration) Ziprasidone: no effect (at therapuetic dose/duration) Depakote: no effect (though not adequate trial) Reason for contiued inpatient stay Substantial Risk for: harm to others, inability to function and rapid decompensation Time Spent With Patient Time: Total time managing care of this patient today ____ minutes.
[2022-08-21] MEDS: Nicotine Polacrilex 2 MG GUM 4 MG BUCCAL ×4 (00:39→21:22)
--- NOTE | 2022-08-21 09:54 | P.PNPSI_ITS ---
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 (at therapuetic dose/duration) Depakote: no effect (though not adequate trial) Reason for contiued inpatient stay Substantial Risk for: inability to function Time Spent With Patient Time: Total time managing care of this patient today ____ minutes.
[2022-08-21] MEDS: Magnesium Hydrox/Alum Hydrox 30 ML ORAL.SUSP PO (10:53)
[2022-08-21] MEDS: cloZAPine ODT 25 MG TAB.RAPDIS 50 MG PO (10:55)
[2022-08-21] MEDS: CLOZAPINE 100 MG 400 MG PO (10:55)
[2022-08-21 18:00] VITALS: RESP 14
[2022-08-22] MEDS: Nicotine Polacrilex 2 MG GUM 4 MG BUCCAL ×3 (08:53→23:56)
[2022-08-22 09:25] VITALS: BP 118/58; PULSE 102; RESP 16; TEMP 36.7; O2SAT 95
[2022-08-22] MEDS: CLOZAPINE 100 MG 400 MG PO (11:06)
[2022-08-22] MEDS: cloZAPine ODT 25 MG TAB.RAPDIS 50 MG PO (11:06)
--- NOTE | 2022-08-22 17:44 | HO.PSYCHPN ---
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 psychotic w/out insight.? Application to [facility] is effort to help patient further stabilize and for a longer period of time which will hopefully give him a chance to develop insight which will hopefully in turn give him a chance to be safe in the community. MED TRIALS: Paliperidone: dystonia Haldol: dytonia Fluphenazine: severe dystonia olanzapine: limited effect (at therapuetic dose/duration) Seroquel: sedates, but does not treat. Abilify: no effect (at therapuetic dose/duration) Ziprasidone: no effect (at therapuetic dose/duration) Depakote: no effect (though not adequate trial) Patient educated on: diagnosis, medication risk/benefits and therapeutic strategies Informed Consent: does not understand Reason for contiued inpatient stay Substantial Risk for: inability to function Time Spent With Patient Time: Total time managing care of this patient today ____ minutes.
[2022-08-23] MEDS: Nicotine Polacrilex 2 MG GUM 4 MG BUCCAL ×4 (07:42→21:41)
[2022-08-23 08:10] VITALS: BP 113/58; PULSE 116; RESP 18; TEMP 36.2; O2SAT 96
[2022-08-23 08:56] LABS: Neut%MD 54.4 %; Neutrophils Absolute Auto 3.4 x10*3/uL (2.0-8.3); WBCANC 6.2 X10*3/uL
[2022-08-23] MEDS: cloZAPine ODT 25 MG TAB.RAPDIS 50 MG PO (09:12)
[2022-08-23] MEDS: CLOZAPINE 100 MG 400 MG PO (09:13)
--- NOTE | 2022-08-23 12:27 | P.PNPSI_ITS ---
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 With Patient Time: Total time managing care of this patient today ____ minutes.
[2022-08-23 19:23] VITALS: BP 133/60; PULSE 127; RESP 20; TEMP 36.6; O2SAT 100
[2022-08-24] MEDS: Nicotine Polacrilex 2 MG GUM 4 MG BUCCAL ×4 (01:13→17:16)
[2022-08-24] MEDS: cloZAPine ODT 25 MG TAB.RAPDIS 50 MG PO (10:02)
[2022-08-24] MEDS: CLOZAPINE 100 MG 400 MG PO (10:02)
--- NOTE | 2022-08-24 23:19 | P.PNPSI_ITS ---
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 effect (at therapuetic dose/duration) Depakote: no effect (though not adequate trial) Reason for contiued inpatient stay Substantial Risk for: inability to function Time Spent With Patient Time: Total time managing care of this patient today ____ minutes.
[2022-08-25] MEDS: Nicotine Polacrilex 2 MG GUM 4 MG BUCCAL ×3 (04:20→15:31)
[2022-08-25] MEDS: CLOZAPINE 100 MG 400 MG PO (08:38)
[2022-08-25] MEDS: cloZAPine ODT 25 MG TAB.RAPDIS 50 MG PO (08:39)
--- NOTE | 2022-08-25 17:23 | HO.PSYCHPN ---
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 patient today ____ minutes.
[2022-08-26 06:00] VITALS: BP 118/58; PULSE 84; RESP 14; TEMP 36.8; O2SAT 97
[2022-08-26] MEDS: cloZAPine ODT 25 MG TAB.RAPDIS 50 MG PO (08:47)
[2022-08-26] MEDS: CLOZAPINE 100 MG 400 MG PO (08:47)
[2022-08-26] MEDS: Nicotine Polacrilex 2 MG GUM 4 MG BUCCAL ×4 (16:48→23:36)
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
[2022-08-26 18:00] VITALS: RESP 14
[2022-08-27] MEDS: CLOZAPINE 100 MG 400 MG PO (09:35)
[2022-08-27] MEDS: cloZAPine ODT 25 MG TAB.RAPDIS 50 MG PO (09:35)
[2022-08-27] MEDS: Nicotine Polacrilex 2 MG GUM 4 MG BUCCAL ×4 (09:36→21:00)
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
[2022-08-27 17:09] VITALS: RESP 16
[2022-08-28 08:20] VITALS: BP 130/92; PULSE 91; RESP 17; TEMP 36.6; O2SAT 97
[2022-08-28] MEDS: CLOZAPINE 100 MG 400 MG PO (09:14)
[2022-08-28] MEDS: cloZAPine ODT 25 MG TAB.RAPDIS 50 MG PO (09:14)
[2022-08-28] MEDS: Nicotine Polacrilex 2 MG GUM 4 MG BUCCAL ×6 (09:15→23:22)
[2022-08-29] MEDS: Nicotine Polacrilex 2 MG GUM 4 MG BUCCAL ×6 (08:00→20:13)
[2022-08-29 08:30] VITALS: BP 142/99; PULSE 97; RESP 16; TEMP 37.2; O2SAT 97
[2022-08-29] MEDS: CLOZAPINE 100 MG 400 MG PO (09:07)
[2022-08-29] MEDS: cloZAPine ODT 25 MG TAB.RAPDIS 50 MG PO (09:08)
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
--- NOTE | 2022-08-29 10:28 | HO.PSYCHPN ---
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 that as usual, pt will stop taking medications soon after the discharge and again becomes unsafe. Patient has never been to higher dose of clozapine than 300mg at which dose he remains psychotic w/out insight.? Application to [facility] is effort to help patient further stabilize and for a longer period of time which will hopefully give him a chance to develop insight which will hopefully in turn give him a chance to be safe in the community. MED TRIALS: Paliperidone: dystonia Haldol: dytonia Fluphenazine: severe dystonia olanzapine: limited effect (at therapuetic dose/duration) Seroquel: sedates, but does not treat. Abilify: no effect (at therapuetic dose/duration) Ziprasidone: no effect (at therapuetic dose/duration) Depakote: no effect (though not adequate trial) Reason for contiued inpatient stay Substantial Risk for: inability to function Time Spent With Patient Time: Total time managing care of this patient today ____ minutes.
[2022-08-29 16:45] VITALS: PULSE 128; RESP 16; O2SAT 99
[2022-08-30] MEDS: Nicotine Polacrilex 2 MG GUM 4 MG BUCCAL ×6 (00:39→22:02)
[2022-08-30 09:00] LABS: Neut%MD 53.9 %; Neutrophils Absolute Auto 3.9 x10*3/uL (2.0-8.3); WBCANC 7.2 X10*3/uL
[2022-08-30] MEDS: CLOZAPINE 100 MG 400 MG PO (09:43)
[2022-08-30] MEDS: cloZAPine ODT 25 MG TAB.RAPDIS 50 MG PO (09:44)
--- NOTE | 2022-08-30 09:57 | P.PNPSI_ITS ---
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 longer time than previously. Will continue current treatment plan.? Patient has never been at this dose of clozapine before; to avoid overdosing and increased risks of side effects, will continue at current dose for now to see if patient will continue to improve at this dose.? Patient remains without any insight at all.? Despite minimal improvement he remains disorganized.? Team agrees that patient will quickly discontinue medication if discharged and again become unsafe.? Team agrees that best option for patient is [facility] admission as he needs a significantly extended period of time to actually stabilize and will likely need continued medication management and possible titration of clozapine. 07/22/22: Continue current regime Reason for contiued inpatient stay Substantial Risk for: inability to function Time Spent With Patient Time: Total time managing care of this patient today ____ minutes.
[2022-08-30 15:10] VITALS: RESP 18
[2022-08-31] MEDS: Nicotine Polacrilex 2 MG GUM 4 MG BUCCAL ×6 (03:03→22:47)
[2022-08-31] MEDS: cloZAPine ODT 25 MG TAB.RAPDIS 75 MG PO (08:25)
[2022-08-31] MEDS: CLOZAPINE 100 MG 400 MG PO (08:25)
--- NOTE | 2022-08-31 17:06 | HO.PSYCHPN ---
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 will continue to improve at this dose.? Patient remains without any insight at all.? Despite minimal improvement he remains disorganized.? Team agrees that patient will quickly discontinue medication if discharged and again become unsafe.? Team agrees that best option for patient is [facility] admission as he needs a significantly extended period of time to actually stabilize and will likely need continued medication management and possible titration of clozapine. 07/22/22: Continue current regime Reason for contiued inpatient stay Substantial Risk for: inability to function Time Spent With Patient Time: Total time managing care of this patient today ____ minutes.
[2022-08-31 18:00] VITALS: RESP 16
[2022-09-01] MEDS: Nicotine Polacrilex 2 MG GUM 4 MG BUCCAL ×4 (02:56→21:26)
[2022-09-01 06:00] VITALS: BP 125/66; PULSE 87; RESP 16; TEMP 36.6; O2SAT 98
[2022-09-01] MEDS: cloZAPine ODT 25 MG TAB.RAPDIS 75 MG PO (08:36)
[2022-09-01] MEDS: CLOZAPINE 100 MG 400 MG PO (08:36)
--- NOTE | 2022-09-01 10:49 | HO.PSYCHPN ---
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 longer time than previously. Will continue current treatment plan.? Patient has never been at this dose of clozapine before; to avoid overdosing and increased risks of side effects, will continue at current dose for now to see if patient will continue to improve at this dose.? Patient remains without any insight at all.? Despite minimal improvement he remains disorganized.? Team agrees that patient will quickly discontinue medication if discharged and again become unsafe.? Team agrees that best option for patient is [facility] admission as he needs a significantly extended period of time to actually stabilize and will likely need continued medication management and possible titration of clozapine. 07/22/22: Continue current regime Reason for contiued inpatient stay Substantial Risk for: inability to function Time Spent With Patient Time: Total time managing care of this patient today ____ minutes.
[2022-09-01 18:00] VITALS: RESP 14
[2022-09-01] MEDS: Magnesium Hydrox/Alum Hydrox 30 ML ORAL.SUSP PO (21:26)
[2022-09-02] MEDS: CLOZAPINE 100 MG 400 MG PO (09:43)
[2022-09-02] MEDS: cloZAPine ODT 25 MG TAB.RAPDIS 75 MG PO (09:44)
[2022-09-02 09:45] VITALS: BP 128/70; PULSE 105; RESP 18; TEMP 36.4; O2SAT 97
[2022-09-02] MEDS: Nicotine Polacrilex 2 MG GUM 4 MG BUCCAL ×2 (09:51→16:51)
--- NOTE | 2022-09-02 18:40 | P.PNPSI_ITS ---
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 member and also less quiet in the shower (during which time he normally screams) 07/12 continue current tx plan; ANC reviewed and WNL 07/18 continue current treatment plan 07/20 patient seems to have improved a small amount and is a little able to stay a little more organized for a little longer time than previously. Will continue current treatment plan.? Patient has never been at this dose of clozapine befor e; to avoid overdosing and increased risks of side effects, will continue at current dose for now to see if patient will continue to improve at this dose.? Patient remains without any insight at all.? Despite minimal improvement he remains disorganized.? Team agrees that patient will quickly discontinue medication if discharged and again become unsafe.? Team agrees that best option for patient is [facility] admission as he needs a significantly extended period of time to actually stabilize and will likely need continued medication management and possible titration of clozapine. 07/22/22: Continue current regime Reason for contiued inpatient stay Substantial Risk for: inability to function Time Spent With Patient Time: Total time managing care of this patient today ____ minutes.
[2022-09-03] MEDS: Nicotine Polacrilex 2 MG GUM 4 MG BUCCAL ×6 (00:19→20:48)
[2022-09-03 08:14] VITALS: PULSE 108; RESP 16; TEMP 36.4; O2SAT 97
[2022-09-03] MEDS: CLOZAPINE 100 MG 400 MG PO (09:48)
[2022-09-03] MEDS: cloZAPine ODT 25 MG TAB.RAPDIS 75 MG PO (09:49)
--- NOTE | 2022-09-03 14:02 | P.PNPSI_ITS ---
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 continue current treatment plan.? Patient has never been at this dose of clozapine before; to avoid overdosing and increased risks of side effects, will continue at current dose for now to see if patient will continue to improve at this dose.? Patient remains without any insight at all.? Despite minimal improvement he remains disorganized.? Team agrees that patient will quickly discontinue medication if discharged and again become unsafe.? Team agrees that best option for patient is [facility] admission as he needs a significantly extended period of time to actually stabilize and will likely need continued medication management and possible titration of clozapine. 07/22/22: Continue current regime Reason for contiued inpatient stay Substantial Risk for: inability to function Time Spent With Patient Time: Total time managing care of this patient today ____ minutes.
[2022-09-04] MEDS: cloZAPine ODT 25 MG TAB.RAPDIS 75 MG PO (09:08)
[2022-09-04] MEDS: Nicotine Polacrilex 2 MG GUM 4 MG BUCCAL ×5 (09:09→20:34)
[2022-09-04] MEDS: CLOZAPINE 100 MG 400 MG PO (09:09)
--- NOTE | 2022-09-04 17:01 | HO.PSYCHPN ---
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 amount and is a little able to stay a little more organized for a little longer time than previously. Will continue current treatment plan.? Patient has never been at this dose of clozapine before; to avoid overdosing and increased risks of side effects, will continue at current dose for now to see if patient will continue to improve at this dose.? Patient remains without any insight at all.? Despite minimal improvement he remains disorganized.? Team agrees that patient will quickly discontinue medication if discharged and again become unsafe.? Team agrees that best option for patient is [facility] admission as he needs a significantly extended period of time to actually stabilize and will likely need continued medication management and possible titration of clozapine. 07/22/22: Continue current regime Reason for contiued inpatient stay Substantial Risk for: inability to function Time Spent With Patient Time: Total time managing care of this patient today ____ minutes.
[2022-09-04 18:00] VITALS: RESP 16
[2022-09-05] MEDS: Nicotine Polacrilex 2 MG GUM 4 MG BUCCAL ×6 (00:05→19:29)
[2022-09-05] MEDS: QUEtiapine Fumarate 50 MG TABLET PO (04:23)
[2022-09-05] MEDS: CLOZAPINE 100 MG 400 MG PO (09:26)
[2022-09-05] MEDS: cloZAPine ODT 25 MG TAB.RAPDIS 75 MG PO (09:27)
--- NOTE | 2022-09-05 17:03 | P.PNPSI_ITS ---
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 therapeutic dose 07/09 pt trying to vomit up medication 07/11 may be seen some small signs of improvement as patient was able to play cards with a staff member and also less quiet in the shower (during which time he normally screams) 07/12 continue current tx plan; ANC reviewed and WNL 07/18 continue current treatment plan 07/20 patient seems to have improved a small amount and is a little able to stay a little more organized for a little longer time than previously. Will continue current treatment plan.? Patient has never been at this dose of clozapine before; to avoid overdosing and increased risks of side effects, will continue at current dose for now to see if patient will continue to improve at this dose .? Patient remains without any insight at all.? Despite minimal improvement he remains disorganized.? Team agrees that patient will quickly discontinue medication if discharged and again become unsafe.? Team agrees that best option for patient is [facility] admission as he needs a significantly extended period of time to actually stabilize and will likely need continued medication management and possible titration of clozapine. 07/22/22: Continue current regime Reason for contiued inpatient stay Substantial Risk for: inability to function Time Spent With Patient Time: Total time managing care of this patient today ____ minutes.
[2022-09-06] MEDS: cloZAPine ODT 25 MG TAB.RAPDIS 75 MG PO (09:13)
[2022-09-06] MEDS: CLOZAPINE 100 MG 400 MG PO (09:13)
[2022-09-06 09:34] LABS: Neut%MD 53.2 %; Neutrophils Absolute Auto 3.4 x10*3/uL (2.0-8.3); WBCANC 6.3 X10*3/uL
--- NOTE | 2022-09-06 09:53 | P.PNPSI_ITS ---
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 treatment plan.? Patient has never been at this dose of clozapine before; to avoid overdosing and increased risks of side effects, will continue at current dose for now to see if patient will continue to improve at this dose.? Patient remains without any insight at all.? Despite minimal improvement he remains disorganized.? Team agrees that patient will quickly discontinue medication if discharged and again become unsafe.? Team agrees that best option for patient is [facility] admission as he needs a significantly extended period of t jason to actually stabilize and will likely need continued medication management and possible titration of clozapine. 07/22/22: Continue current regime Reason for contiued inpatient stay Substantial Risk for: inability to function Time Spent With Patient Time: Total time managing care of this patient today ____ minutes.
[2022-09-06] MEDS: Nicotine Polacrilex 2 MG GUM 4 MG BUCCAL ×3 (18:17→23:04)
[2022-09-07] MEDS: Nicotine Polacrilex 2 MG GUM 4 MG BUCCAL ×4 (00:53→22:37)
[2022-09-07 07:00] VITALS: BMI 22.9
[2022-09-07] MEDS: CLOZAPINE 100 MG 400 MG PO (09:03)
[2022-09-07] MEDS: cloZAPine ODT 25 MG TAB.RAPDIS 75 MG PO (09:03)
--- NOTE | 2022-09-07 18:20 | HO.PSYCHPN ---
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 07/11 may be seen some small signs of improvement as patient was able to play cards with a staff member and also less quiet in the shower (during which time he normally screams) 07/12 continue current tx plan; ANC reviewed and WNL 07/18 continue current treatment plan 07/20 patient seems to have improved a small amount and is a little able to stay a little more organized for a little longer time than previously. Will continue current treatment plan.? Patient has never been at this dose of clozapine before; to avoid overdosing and increased risks of side effects, will continue at current dose for now to see if patient will continue to improve at this dose.? Patient remains without any insight at all.? Despite minimal improvement he remains disorganized.? Team agrees that patient will quickly discontinue medication if discharged and again become unsafe.? Team agrees that best option for patient is [facility] admission as he needs a significantly extended period of time to actually stabilize and will likely need continued medication management and possible titration of clozapine. 07/22/22: Continue current regime Reason for contiued inpatient stay Substantial Risk for: inability to function Time Spent With Patient Time: Total time managing care of this patient today ____ minutes.
[2022-09-07] MEDS: Magnesium Hydrox/Alum Hydrox 30 ML ORAL.SUSP PO (20:28)
[2022-09-08] MEDS: Nicotine Polacrilex 2 MG GUM 4 MG BUCCAL ×4 (00:51→23:21)
[2022-09-08] MEDS: Magnesium Hydrox/Alum Hydrox 30 ML ORAL.SUSP PO ×2 (02:28→19:01)
[2022-09-08] MEDS: QUEtiapine Fumarate 50 MG TABLET PO (02:28)
[2022-09-08 06:00] VITALS: BP 116/60; PULSE 93; RESP 14; TEMP 37.1; O2SAT 98
[2022-09-08] MEDS: CLOZAPINE 100 MG 400 MG PO (08:18)
[2022-09-08] MEDS: cloZAPine ODT 25 MG TAB.RAPDIS 75 MG PO (08:19)
--- NOTE | 2022-09-08 18:02 | P.PNPSI_ITS ---
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 (during which time he normally screams) 07/12 continue current tx plan; ANC reviewed and WNL 07/18 continue current treatment plan 07/20 patient seems to have improved a small amount and is a little able to stay a little more organized for a little longer time than previously. Will continue current treatment plan.? Patient has never been at this dose of clozapine before; to avoid overdosing and increased risks of side effects, will continue at current dose for now to see if patient will continue to improve at this dose.? Patient remains without any insight at all.? Despite minimal improvement he remains disorganized.? Team agrees that patient will quickly discontinue medication if discharged and again become unsafe.? Team agrees that best option for patient is [facility] admission as he needs a significantly extended period of time to actually stabilize and will likely need continued medication management and possible titration of clozapine. 07/22/22: Continue current regime Reason for contiued inpatient stay Substantial Risk for: inability to function Time Spent With Patient Time: Total time managing care of this patient today ____ minutes.
[2022-09-09 06:00] VITALS: BP 132/77; PULSE 92; RESP 14; TEMP 36.5; O2SAT 99
[2022-09-09] MEDS: cloZAPine ODT 25 MG TAB.RAPDIS 75 MG PO (08:31)
[2022-09-09] MEDS: CLOZAPINE 100 MG 400 MG PO (08:32)
--- NOTE | 2022-09-09 10:39 | P.PNPSI_ITS ---
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 improve at this dose.? Patient remains without any insight at all.? Despite minimal improvement he remains disorganized.? Team agrees that patient will quickly discontinue medication if discharged and again become unsafe.? Team agrees that best option for patient is [facility] admission as he needs a significantly extended period of time to actually stabilize and will likely need continued medication management and possible titration of clozapine. 07/22/22: Continue current regime Reason for contiued inpatient stay Substantial Risk for: med/psych decompensation Time Spent With Patient Time: Total time managing care of this patient today ____ minutes.
[2022-09-09] MEDS: Nicotine Polacrilex 2 MG GUM 4 MG BUCCAL ×3 (16:49→22:18)
[2022-09-09] MEDS: Magnesium Hydrox/Alum Hydrox 30 ML ORAL.SUSP PO (19:46)
[2022-09-10] MEDS: Magnesium Hydrox/Alum Hydrox 30 ML ORAL.SUSP PO (00:07)
[2022-09-10] MEDS: Nicotine Polacrilex 2 MG GUM 4 MG BUCCAL ×7 (00:20→22:51)
[2022-09-10 06:00] VITALS: BP 127/70; PULSE 94; RESP 14; TEMP 36.8; O2SAT 96
[2022-09-10] MEDS: cloZAPine ODT 25 MG TAB.RAPDIS 75 MG PO (08:03)
[2022-09-10] MEDS: CLOZAPINE 100 MG 400 MG PO (08:03)
--- NOTE | 2022-09-10 09:15 | P.PNPSI_ITS ---
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 continue current treatment plan.? Patient has never been at this dose of clozapine before; to avoid overdosing and increased risks of side effects, will continue at current dose for now to see if patient will continue to improve at this dose.? Patient remains without any insight at all.? Despite minimal improvement he remains disorganized.? Team agrees that patient will quickly discontinue medication if discharged and again become unsafe.? Team agrees that best option for patient is [facility] admission as he needs a significantly extended period of t jason to actually stabilize and will likely need continued medication management and possible titration of clozapine. 07/22/22: Continue current regime Reason for contiued inpatient stay Substantial Risk for: med/psych decompensation Time Spent With Patient Time: Total time managing care of this patient today ____ minutes.
[2022-09-11] MEDS: Magnesium Hydrox/Alum Hydrox 30 ML ORAL.SUSP PO (09:27)
[2022-09-11] MEDS: cloZAPine ODT 25 MG TAB.RAPDIS 75 MG PO (09:27)
[2022-09-11] MEDS: CLOZAPINE 100 MG 400 MG PO (09:27)
[2022-09-11] MEDS: Nicotine Polacrilex 2 MG GUM 4 MG BUCCAL ×4 (09:27→22:19)
--- NOTE | 2022-09-11 09:27 | P.PNPSI_ITS ---
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 significantly extended period of time to actually stabilize and will likely need continued medication management and possible titration of clozapine. 07/22/22: Continue current regime Reason for contiued inpatient stay Substantial Risk for: med/psych decompensation Time Spent With Patient Time: Total time managing care of this patient today ____ minutes.
[2022-09-11 18:00] VITALS: RESP 14
[2022-09-12] MEDS: CLOZAPINE 100 MG 400 MG PO (09:31)
[2022-09-12] MEDS: Nicotine Polacrilex 2 MG GUM 4 MG BUCCAL ×3 (09:31→20:31)
[2022-09-12] MEDS: cloZAPine ODT 25 MG TAB.RAPDIS 75 MG PO (09:31)
[2022-09-12 09:41] VITALS: BP 130/70; PULSE 104; RESP 20; TEMP 36.3; O2SAT 97
--- NOTE | 2022-09-12 10:45 | P.PNPSI_ITS ---
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 able to play cards with a staff member and also less quiet in the shower (during which time he normally screams) 07/12 continue current tx plan; ANC reviewed and WNL 07/18 continue current treatment plan 07/20 patient seems to have improved a small amount and is a little able to stay a little more organized for a little longer time than previously. Will continue current treatment plan.? Patient has never been at this dose of clozapine before; to avoid overdosing and increased risks of side effects, will continue at current dose for now to see if patient will continue to improve at this dose.? Patient remains without any insight at all.? Despite minimal improvement he remains disorganized.? Team agrees that patient will quickly discontinue medication if discharged and again become unsafe.? Team agrees that best option for patient is [facility] admission as he needs a significantly extended period of time to actually stabilize and will likely need continued medication management and possible titration of clozapine. 07/22/22: Continue current regime Reason for contiued inpatient stay Substantial Risk for: inability to function Time Spent With Patient Time: Total time managing care of this patient today ____ minutes.
[2022-09-13] MEDS: CLOZAPINE 100 MG 500 MG PO (08:43)
[2022-09-13] MEDS: Nicotine Polacrilex 2 MG GUM 4 MG BUCCAL ×3 (08:44→18:13)
[2022-09-13 08:49] VITALS: PULSE 91; RESP 16; TEMP 36.6; O2SAT 94
[2022-09-13 09:05] LABS: Neut%MD 51.4 %; WBCANC 7.7 X10*3/uL
--- NOTE | 2022-09-13 16:41 | P.PNPSI_ITS ---
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 regime Reason for contiued inpatient stay Substantial Risk for: inability to function and rapid decompensation Time Spent With Patient Time: Total time managing care of this patient today __15__ minutes.
[2022-09-13 18:00] VITALS: RESP 16
[2022-09-13] MEDS: Magnesium Hydrox/Alum Hydrox 30 ML ORAL.SUSP PO (18:57)
[2022-09-14] MEDS: CLOZAPINE 100 MG 500 MG PO (09:01)
--- NOTE | 2022-09-14 15:07 | HO.PSYCHPN ---
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 admission as he needs a significantly extended period of time to actually stabilize and will likely need continued medication management and possible titration of clozapine. 07/22/22: Continue current regime Reason for contiued inpatient stay Substantial Risk for: inability to function and rapid decompensation Time Spent With Patient Time: Total time managing care of this patient today __15__ minutes.
[2022-09-14] MEDS: Nicotine Polacrilex 2 MG GUM 4 MG BUCCAL (18:33)
[2022-09-14] MEDS: Magnesium Hydrox/Alum Hydrox 30 ML ORAL.SUSP PO (21:31)
[2022-09-15] MEDS: Nicotine Polacrilex 2 MG GUM 4 MG BUCCAL ×5 (01:20→23:20)
[2022-09-15] MEDS: Magnesium Hydrox/Alum Hydrox 30 ML ORAL.SUSP PO (05:24)
[2022-09-15] MEDS: CLOZAPINE 100 MG 500 MG PO (09:04)
--- NOTE | 2022-09-15 12:20 | HO.PSYCHPN ---
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 inability to function and rapid decompensation Time Spent With Patient Time: Total time managing care of this patient today _15___ minutes.
[2022-09-16 06:00] VITALS: RESP 18
[2022-09-16] MEDS: CLOZAPINE 100 MG 500 MG PO (09:16)
[2022-09-16] MEDS: Nicotine Polacrilex 2 MG GUM 4 MG BUCCAL ×4 (10:31→23:15)
--- NOTE | 2022-09-16 12:45 | P.PNPSI_ITS ---
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 at all.? Despite minimal improvement he remains disorganized.? Team agrees that patient will quickly discontinue medication if discharged and again become unsafe.? Team agrees that best option for patient is [facility] admission as he needs a significantly extended period of time to actually stabilize and will likely need continued medication management and possible titration of clozapine. 07/22/22: Continue current regime Reason for contiued inpatient stay Substantial Risk for: inability to function and rapid decompensation Time Spent With Patient Time: Total time managing care of this patient today ____ minutes.
[2022-09-17] MEDS: Magnesium Hydrox/Alum Hydrox 30 ML ORAL.SUSP PO (00:06)
[2022-09-17] MEDS: Nicotine Polacrilex 2 MG GUM 4 MG BUCCAL ×3 (01:52→21:04)
[2022-09-17] MEDS: CLOZAPINE 100 MG 500 MG PO (09:24)
[2022-09-17 09:50] VITALS: BP 131/80; PULSE 111; RESP 20; TEMP 36.3; O2SAT 97
--- NOTE | 2022-09-17 12:05 | P.PNPSI_ITS ---
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 organized for a little longer time than previously. Will continue current treatment plan.? Patient has never been at this dose of clozapine before; to avoid overdosing and increased risks of side effects, will continue at current dose for now to see if patient will continue to improve at this dose.? Patient remains without any insight at all.? Despite minimal improvement he remains disorganized.? Team agrees that patient will quickly discontinue medication if discharged and again become unsafe.? Team agrees that best option for patient is [facility] admission as he needs a significantly extended period of time to actually stabilize and will likely need continued medication management and possible titration of clozapine. 07/22/22: Continue current regime Reason for contiued inpatient stay Substantial Risk for: inability to function and rapid decompensation Time Spent With Patient Time: Total time managing care of this patient today ____ minutes.
[2022-09-17 18:25] VITALS: RESP 16; TEMP 36.6
[2022-09-18] MEDS: Nicotine Polacrilex 2 MG GUM 4 MG BUCCAL ×5 (00:12→22:15)
--- NOTE | 2022-09-18 10:43 | HO.PSYCHPN ---
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 screams) 07/12 continue current tx plan; ANC reviewed and WNL 07/18 continue current treatment plan 07/20 patient seems to have improved a small amount and is a little able to stay a little more organized for a little longer time than previously. Will continue current treatment plan.? Patient has never been at this dose of clozapine before; to avoid overdosing and increased risks of side effects, will continue at current dose for now to see if patient will continue to improve at this dose.? Patient remains without any insight at all.? Despite minimal improvement he remains disorganized.? Team agrees that patient will quickly discontinue medication if discharged and again become unsafe.? Team agrees that best option for patient is [facility] admission as he needs a significantly extended period of time to actually stabilize and will likely need continued medication management and possible titration of clozapine. 07/22/22: Continue current regime Reason for contiued inpatient stay Substantial Risk for: inability to function Time Spent With Patient Time: Total time managing care of this patient today ____ minutes.
[2022-09-18] MEDS: CLOZAPINE 100 MG 500 MG PO (10:59)
[2022-09-19] MEDS: Nicotine Polacrilex 2 MG GUM 4 MG BUCCAL ×5 (00:18→22:12)
--- NOTE | 2022-09-19 10:18 | P.PNPSI_ITS ---
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 a little able to stay a little more organized for a little longer time than previously. Will continue current treatment plan.? Patient has never been at this dose of clozapine befor e; to avoid overdosing and increased risks of side effects, will continue at current dose for now to see if patient will continue to improve at this dose.? Patient remains without any insight at all.? Despite minimal improvement he remains disorganized.? Team agrees that patient will quickly discontinue medication if discharged and again become unsafe.? Team agrees that best option for patient is [facility] admission as he needs a significantly extended period of time to actually stabilize and will likely need continued medication management and possible titration of clozapine. 07/22/22: Continue current regime Reason for contiued inpatient stay Substantial Risk for: inability to function Time Spent With Patient Time: Total time managing care of this patient today ____ minutes.
[2022-09-19] MEDS: CLOZAPINE 100 MG 500 MG PO (10:20)
[2022-09-19] MEDS: Magnesium Hydrox/Alum Hydrox 30 ML ORAL.SUSP PO (11:10)
[2022-09-20] MEDS: Nicotine Polacrilex 2 MG GUM 4 MG BUCCAL ×4 (00:06→20:10)
[2022-09-20 08:58] VITALS: RESP 18
[2022-09-20 09:51] LABS: Neutrophils Absolute Auto 3.3 x10*3/uL (2.0-8.3); WBCANC 6.4 X10*3/uL
[2022-09-20] MEDS: CLOZAPINE 100 MG 500 MG PO (09:56)
--- NOTE | 2022-09-20 18:23 | HO.PSYCHPN ---
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 longer time than previously. Will continue current treatment plan.? Patient has never been at this dose of clozapine before; to avoid overdosing and increased risks of side effects, will continue at current dose for now to see if patient will continue to improve at this dose.? Patient remains without any insight at all.? Despite minimal improvement he remains disorganized.? Team agrees that patient will quickly discontinue medication if discharged and again become unsafe.? Team agrees that best option for patient is [facility] admission as he needs a significantly extended period of time to actually stabilize and will likely need continued medication management and possible titration of clozapine. 07/22/22: Continue current regime Patient educated on: diagnosis Reason for contiued inpatient stay Substantial Risk for: inability to function Time Spent With Patient Time: Total time managing care of this patient today ____ minutes.
[2022-09-20 20:10] VITALS: BP 125/61; PULSE 120; O2SAT 97
[2022-09-20] MEDS: Magnesium Hydrox/Alum Hydrox 30 ML ORAL.SUSP PO (23:06)
[2022-09-21] MEDS: Nicotine Polacrilex 2 MG GUM 4 MG BUCCAL ×4 (00:03→23:47)
[2022-09-21 06:00] VITALS: RESP 18
[2022-09-21 07:00] VITALS: BMI 22.6
[2022-09-21] MEDS: CLOZAPINE 100 MG 500 MG PO (09:48)
--- NOTE | 2022-09-21 14:43 | HO.PSYCHPN ---
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 an overshoot patient's therapeutic dose 07/09 pt trying to vomit up medication 07/11 may be seen some small signs of improvement as patient was able to play cards with a staff member and also less quiet in the shower (during which time he normally screams) 07/12 continue current tx plan; ANC reviewed and WNL 07/18 continue current treatment plan 07/20 patient seems to have improved a small amount and is a little able to stay a little more organized for a little longer time than previously. Will continue current treatment plan.? Patient has never been at this dose of clozapine before; to avoid overdosing and increased risks of side effects, will continue at current dose for now to see if patient will continue to improve at this dose.? Patient remains without any insight at all.? Despite minimal improvement he remains disorganized.? Team agrees that patient will quickly discontinue medication if discharged and again become unsafe.? Team agrees that best option for patient is [facility] admission as he needs a significantly extended period of time to actually stabilize and will likely need continued medication management and possible titration of clozapine. 07/22/22: Continue current regime Reason for contiued inpatient stay Substantial Risk for: stable for discharge Time Spent With Patient Time: Total time managing care of this patient today ____ minutes.
[2022-09-22] MEDS: Nicotine Polacrilex 2 MG GUM 4 MG BUCCAL ×4 (01:53→22:52)
[2022-09-22] MEDS: CLOZAPINE 100 MG 500 MG PO (10:19)
--- NOTE | 2022-09-22 17:43 | HO.PSYCHPN ---
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 seen some small signs of improvement as patient was able to play cards with a staff member and also less quiet in the shower (during which time he normally screams) 07/12 continue current tx plan; ANC reviewed and WNL 07/18 continue current treatment plan 07/20 patient seems to have improved a small amount and is a little able to stay a little more organized for a little longer time than previously. Will continue current treatment plan.? Patient has never been at this dose of clozapine before; to avoid overdosing and increased risks of side effects, will continue at current dose for now to see if patient will continue to improve at this dose.? Patient remains without any insight at all.? Despite minimal improvement he remains disorganized.? Team agrees that patient will quickly discontinue medication if discharged and again become unsafe.? Team agrees that best option for patient is [facility] admission as he needs a significantly extended period of time to actually stabilize and will likely need continued medication management and possible titration of clozapine. 07/22/22: Continue current regime Patient educated on: therapeutic strategies Informed Consent: understands and further education needed Reason for contiued inpatient stay Substantial Risk for: inability to function Time Spent With Patient Time: Total time managing care of this patient today ____ minutes.
[2022-09-23] MEDS: Nicotine Polacrilex 2 MG GUM 4 MG BUCCAL ×4 (00:30→19:46)
--- NOTE | 2022-09-23 09:44 | HO.PSYCHPN ---
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 this dose.? Patient remains without any insight at all.? Despite minimal improvement he remains disorganized.? Team agrees that patient will quickly discontinue medication if discharged and again become unsafe.? Team agrees that best option for patient is [facility] admission as he needs a significantly extended period of time to actually stabilize and will likely need continued medication management and possible titration of clozapine. 07/22/22: Continue current regime Plan no change - ongoing psychosis- manageable on psychiatric unit- Reason for contiued inpatient stay Substantial Risk for: inability to function and rapid decompensation Time Spent With Patient Time: Total time managing care of this patient today ____ minutes.
[2022-09-23] MEDS: CLOZAPINE 100 MG 500 MG PO (10:07)
[2022-09-23] MEDS: Magnesium Hydrox/Alum Hydrox 30 ML ORAL.SUSP PO (22:47)
[2022-09-24] MEDS: Nicotine Polacrilex 2 MG GUM 4 MG BUCCAL ×5 (00:26→22:48)
--- NOTE | 2022-09-24 09:53 | P.PNPSI_ITS ---
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 side effects, will continue a t current dose for now to see if patient will continue to improve at this dose.? Patient remains without any insight at all.? Despite minimal improvement he remains disorganized.? Team agrees that patient will quickly discontinue medication if discharged and again become unsafe.? Team agrees that best option for patient is [facility] admission as he needs a significantly extended period of time to actually stabilize and will likely need continued medication management and possible titration of clozapine. 07/22/22: Continue current regime Plan no change - ongoing psychosis- manageable on psychiatric unit- Patient educated on: medication risk/benefits Informed Consent: understands Reason for contiued inpatient stay Substantial Risk for: harm to others, inability to function and rapid decompensation Time Spent With Patient Time: Total time managing care of this patient today ____ minutes.
[2022-09-24] MEDS: cloZAPine 100 MG TABLET 500 MG PO (10:18)
[2022-09-24 18:00] VITALS: RESP 14
[2022-09-25 06:00] VITALS: BP 163/100; PULSE 111; RESP 16; TEMP 36.2; O2SAT 97
[2022-09-25] MEDS: Nicotine Polacrilex 2 MG GUM 4 MG BUCCAL ×4 (08:30→23:32)
[2022-09-25] MEDS: CLOZAPINE 100 MG 500 MG PO (08:43)
--- NOTE | 2022-09-25 16:40 | HO.PSYCHPN ---
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 member and also less quiet in the shower (during which time he normally screams) 07/12 continue current tx plan; ANC reviewed and WNL 07/18 continue current treatment plan 07/20 patient seems to have improved a small amount and is a little able to stay a little more organized for a little longer time than previously. Will continue current treatment plan.? Patient has never been at this dose of clozapine before; to avoid overdosing and increased risks of side effects, will continue at current dose for now to see if patient will continue to improve at this dose.? Patient remains without any insight at all.? Despite minimal improvement he remains disorganized.? Team agrees that patient will quickly discontinue medication if discharged and again become unsafe.? Team agrees that best option for patient is [facility] admission as he needs a significantly extended period of time to actually stabilize and will likely need continued medication management and possible titration of clozapine. 07/22/22: Continue current regime Plan no change - ongoing psychosis- manageable on psychiatric unit- Patient educated on: therapeutic strategies Informed Consent: understands and further education needed Reason for contiued inpatient stay Substantial Risk for: inability to function Time Spent With Patient Time: Total time managing care of this patient today ____ minutes.
[2022-09-26] MEDS: Nicotine Polacrilex 2 MG GUM 4 MG BUCCAL ×3 (03:06→21:57)
[2022-09-26 06:54] LABS: Clozapine (Clozaril) 305 mcg/L; Norclozapine 274 mcg/L (25-400)
[2022-09-26] MEDS: CLOZAPINE 100 MG 500 MG PO (11:05)
[2022-09-26 11:06] VITALS: BP 124/61; PULSE 97; RESP 18; TEMP 36; O2SAT 96
--- NOTE | 2022-09-26 17:30 | P.PNPSI_ITS ---
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 continue with current treatment plan; it does not seem necessary to use IM's for compliance as patient seems to have good enough rapport with daytime staff.? However will continue to monitor levels and adjust plan accordingly. 07/07 will give clozapine at this dose some time to see if it can she come increasingly effective.? Given risk of side effects as the dose climbs, do not want to titrate too quickly an overshoot patient's therapeutic dose 07/09 pt trying to vomit up medication 07/11 may be seen some small signs of improvement as patient was able to play cards with a staff member and also less quiet in the shower (during which time he normally screams) 07/12 continue current tx plan; ANC reviewed and WNL 07/18 continue current treatment plan 07/20 patient seems to have improved a small amount and is a little able to stay a little more organized for a little longer time than previously. Will continue current treatment plan.? Patient has never been at this dose of clozapine before; to avoid overdosing and increased risks of side effects, will continue at current dose for now to see if patient will continue to improve at this dose.? Patient remains without any insight at all.? Despite minimal improvement he remains disorganized.? Team agrees that patient will quickly discontinue medication if discharged and again become unsafe.? Team agrees that best option for patient is [facility] admission as he needs a significantly extended period of time to actually stabilize and will likely need continued medication management and possible titration of clozapine. 07/22/22: Continue current regime Plan no change - ongoing psychosis- manageable on psychiatric unit- Reason for contiued inpatient stay Substantial Risk for: inability to function Time Spent With Patient Time: Total time managing care of this patient today ____ minutes.
[2022-09-26 18:00] VITALS: RESP 16
[2022-09-27] MEDS: CLOZAPINE 100 MG 500 MG PO (10:27)
[2022-09-27] MEDS: Nicotine Polacrilex 2 MG GUM 4 MG BUCCAL ×4 (10:27→21:06)
--- NOTE | 2022-09-27 10:29 | P.PNPSI_ITS ---
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 rapport with [facility] staff.? However will continue to monitor levels and adjust plan accordingly. 07/07 will give clozapine at this dose some time to see if it can she come increasingly effective.? Given risk of side effects as the dose climbs, do not want to titrate too quickly an overshoot patient's therapeutic dose 07/09 pt trying to vomit up medication 07/11 may be seen some small signs of improvement as patient was able to play cards with a staff member and also less quiet in the shower (during which time he normally screams) 07/12 continue current tx plan; ANC reviewed and WNL 07/18 continue current treatment plan 07/20 patient seems to have improved a small amount and is a little able to stay a little more organized for a little longer time than previously. Will continue current treatment plan.? Patient has never been at this dose of clozapine before; to avoid overdosing and increased risks of side effects, will continue at current dose for now to see if patient will continue to improve at this do se.? Patient remains without any insight at all.? Despite minimal improvement he remains disorganized.? Team agrees that patient will quickly discontinue medication if discharged and again become unsafe.? Team agrees that best option for patient is [facility] admission as he needs a significantly extended period of time to actually stabilize and will likely need continued medication management and possible titration of clozapine. 07/22/22: Continue current regime Plan no change - ongoing psychosis- manageable on psychiatric unit- Reason for contiued inpatient stay Substantial Risk for: inability to function Time Spent With Patient Time: Total time managing care of this patient today ____ minutes.
[2022-09-27 11:22] LABS: Neut%MD 56.5 %; Neutrophils Absolute Auto 3.2 x10*3/uL (2.0-8.3); WBCANC 5.7 X10*3/uL
[2022-09-28] MEDS: Nicotine Polacrilex 2 MG GUM 4 MG BUCCAL ×2 (09:17→13:22)
[2022-09-28] MEDS: CLOZAPINE 100 MG 500 MG PO (09:17)
--- NOTE | 2022-09-28 12:18 | P.PNPSI_ITS ---
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 treatment plan; it does not seem necessary to use IM's for compliance as patient seems to have good enough rapport with daytime staff.? However will continue to monitor levels and adjust plan a ccordingly. 07/07 will give clozapine at this dose some time to see if it can she come increasingly effective.? Given risk of side effects as the dose climbs, do not want to titrate too quickly an overshoot patient's therapeutic dose 07/09 pt trying to vomit up medication 07/11 may be seen some small signs of improvement as patient was able to play cards with a staff member and also less quiet in the shower (during which time he normally screams) 07/12 continue current tx plan; ANC reviewed and WNL 07/18 continue current treatment plan 07/20 patient seems to have improved a small amount and is a little able to stay a little more organized for a little longer time than previously. Will continue current treatment plan.? Patient has never been at this dose of clozapine before; to avoid overdosing and increased risks of side effects, will continue at current dose for now to see if patient will continue to improve at this dose.? Patient remains without any insight at all.? Despite minimal improvement he remains disorganized.? Team agrees that patient will quickly discontinue medication if discharged and again become unsafe.? Team agrees that best option for patient is [facility] admission as he needs a significantly extended period of time to actually stabilize and will likely need continued medication management and possible titration of clozapine. 07/22/22: Continue current regime Plan no change - ongoing psychosis- manageable on psychiatric unit- Patient educated on: therapeutic strategies Informed Consent: further education needed Reason for contiued inpatient stay Substantial Risk for: inability to function Time Spent With Patient Time: Total time managing care of this patient today ____ minutes.
[2022-09-29] MEDS: CLOZAPINE 100 MG 500 MG PO (09:25)
[2022-09-29] MEDS: Nicotine Polacrilex 2 MG GUM 4 MG BUCCAL ×3 (09:25→22:30)
--- NOTE | 2022-09-29 17:50 | P.PNPSI_ITS ---
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 to use IM's for compliance as patient seems to have good enough rapport with daytime staff.? However will continue to monitor levels and adjust plan accordingly. 07/07 will give clozapine at this dose some time to see if it can she come increasingly effective.? Given risk of side effects as the dose climbs, do not want to titrate too quickly an overshoot patient's therapeutic dose 07/09 pt trying to vomit up medication 07/11 may be seen some small signs of improvement as patient was able to play cards with a staff member and also less quiet in the shower (during which time he normally screams) 07/12 continue current tx plan; ANC reviewed and WNL 07/18 continue current treatment plan 07/20 patient seems to have improved a small amount and is a little able to stay a little more organized for a little longer time than previously. Will continue current treatment plan.? Patient has never been at this dose of clozapine before; to avoid overdosing and increased risks of side effects, will continue at current dose for now to see if patient will continue to improve at this dose.? Patient remains without any insight at all.? Despite minimal improvement he remains disorganized.? Team agrees that patient will quickly discontinue medication if discharged and again become unsafe.? Team agrees that best option for patient is [facility] admission as he needs a significantly extended period of time to actually stabilize and will likely need continued medication management and possible titration of clozapine. 07/22/22: Continue current regime Plan no change - ongoing psychosis- manageable on psychiatric unit- Reason for contiued inpatient stay Substantial Risk for: inability to function Time Spent With Patient Time: Total time managing care of this patient today ____ minutes.
[2022-09-30] MEDS: Nicotine Polacrilex 2 MG GUM 4 MG BUCCAL ×3 (00:17→20:49)
[2022-09-30] MEDS: CLOZAPINE 100 MG 500 MG PO (09:35)
[2022-09-30 09:41] VITALS: RESP 18
--- NOTE | 2022-09-30 10:21 | HO.PSYCHPN ---
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 continue to monitor levels and adjust plan accordingly. 07/07 will give clozapine at this dose some time to see if it can she come increasingly effective.? Given risk of side effects as the dose climbs, do not want to titrate too quickly an overshoot patient's therapeutic dose 07/09 pt trying to vomit up medication 07/11 may be seen some small signs of improvement as patient was able to play cards with a staff member and also less quiet in the shower (during which time he normally screams) 07/12 continue current tx plan; ANC reviewed and WNL 07/18 continue current treatment plan 07/20 patient seems to have improved a small amount and is a little able to stay a little more organized for a little longer time than previously. Will continue current treatment plan.? Patient has never been at this dose of clozapine before; to avoid overdosing and increased risks of side effects, will continue at current dose for now to see if patient will continue to improve at this dose.? Patient remains without any insight at all.? Despite minimal improvement he remains disorganized.? Team agrees that patient will quickly discontinue medication if discharged and again become unsafe.? Team agrees that best option for patient is [facility] admission as he needs a significantly extended period of time to actually stabilize and will likely need continued medication management and possible titration of clozapine. 07/22/22: Continue current regime Plan no change - ongoing psychosis- manageable on psychiatric unit- Reason for contiued inpatient stay Substantial Risk for: inability to function Time Spent With Patient Time: Total time managing care of this patient today ____ minutes.
[2022-09-30 17:53] LABS: TS Negative Control Passed; TS Panel A 1; TS Panel B 0; TS Positive Control Passed; TSpotTB Negative (Negative)
[2022-10-01] MEDS: CLOZAPINE 100 MG 500 MG PO (09:43)
[2022-10-01] MEDS: Nicotine Polacrilex 2 MG GUM 4 MG BUCCAL ×3 (14:17→22:06)
--- NOTE | 2022-10-01 18:17 | P.PNPSI_ITS ---
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 his medication was switched to daytime dosing.? At this time will continue with current treatment plan; it does not seem necessary to use IM's for compliance as patient seems to have good enough rapport with daytime staff.? However will continue to monitor levels and adjust plan acco rdingly. 07/07 will give clozapine at this dose some time to see if it can she come increasingly effective.? Given risk of side effects as the dose climbs, do not want to titrate too quickly an overshoot patient's therapeutic dose 07/09 pt trying to vomit up medication 07/11 may be seen some small signs of improvement as patient was able to play cards with a staff member and also less quiet in the shower (during which time he normally screams) 07/12 continue current tx plan; ANC reviewed and WNL 07/18 continue current treatment plan 07/20 patient seems to have improved a small amount and is a little able to stay a little more organized for a little longer time than previously. Will continue current treatment plan.? Patient has never been at this dose of clozapine before; to avoid overdosing and increased risks of side effects, will continue at current dose for now to see if patient will continue to improve at this dose.? Patient remains without any insight at all.? Despite minimal improvement he remains disorganized.? Team agrees that patient will quickly discontinue medication if discharged and again become unsafe.? Team agrees that best option for patient is [facility] admission as he needs a significantly extended period of time to actually stabilize and will likely need continued medication management and possible titration of clozapine. 07/22/22: Continue current regime Plan no change - ongoing psychosis- manageable on psychiatric unit- Reason for contiued inpatient stay Substantial Risk for: inability to function Time Spent With Patient Time: Total time managing care of this patient today ____ minutes.
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
[2022-10-02] MEDS: Nicotine Polacrilex 2 MG GUM 4 MG BUCCAL ×4 (00:09→13:08)
[2022-10-02 06:00] VITALS: BP 123/59; PULSE 100; RESP 14; TEMP 36.7; O2SAT 98
[2022-10-02] MEDS: CLOZAPINE 100 MG 500 MG PO (08:09)
[2022-10-02 11:59] LABS: COVID-19 Test Negative (Negative); IDNOW Serial# 9DB6401D
== END 2022-10-02 13:33 | disposition other institution (70) | DRG 750 ==
LOC: HO.ED 20:25 → HO.PM5 21:14 → HO.PADLT16 05-12 16:31 → HO.PM5 05-19 13:19
PROVIDERS: Clinical Nurse Specialist Psychiatric/Mental Health, Adult; Physician Assistant; Psychiatry & Neurology Psychiatry; Admitting Provider Psychiatry & Neurology Psychiatry; Emergency Provider Emergency Medicine Emergency Medical Services; PCP Internal Medicine; Visit Provider Psychiatry & Neurology Psychiatry
DX: F25.0 Schizoaffective disorder, bipolar type (principal); U07.1 COVID-19; Z91.14 Patient's other noncompliance with medication regimen; Z20.822 Contact with and (suspected) exposure to COVID-19; Z91.51 Personal history of suicidal behavior; Z87.891 Personal history of nicotine dependence; Z88.8 Allergy status to other drugs, medicaments and biological substances; Z79.899 Other long term (current) drug therapy
CPT/HCPCS: 0241U; 36415; 80053; 80159; 80307; 81001; 82077; 85025; 85048; 86481; 87635; 93005; 99285

== ENCOUNTER 2023-11-20 10:04 | Outpatient (REF) | payer OTHER, SELFPAY ==
[2023-11-20 10:28] LABS: MANUAL DIFF FLAG NO
[2023-11-20 10:40] LABS: Basophils Absolute Auto 0.1 X10*3/uL (0.0-0.2); Eosinophils Absolute Auto 0.2 X10*3/uL (0.0-0.4); Eosinophils Percent Auto 3.6 % (0-4); Hematocrit 42.7 % (42.0-52.0); Hemoglobin 14.9 g/dl (14.0-18.0); Imm Gran Abs Auto 0.02 X10*3/uL (0.00-0.03); Imm Gran Pct Auto 0.3 % (0.0-0.4); Lymphocytes Absolute Auto 1.7 X10*3/uL (1.2-4.9); Lymphocytes Percent Auto 27.5 % (20-40); Mean Corpuscular HGB Conc 34.9 g/dl (31.0-36.0); Mean Corpuscular Hemoglobin 31.6 pg (27.0-33.0); Mean Corpuscular Volume 90.5 fL (80.0-98.0); Mean Platelet Volume 9.4 fL (9.4-12.4); Monocytes Absolute Auto 0.3 X10*3/uL (0.1-1.2); Monocytes Percent Auto 5.5 % (2-11); Neutrophils Absolute Auto 3.7 x10*3/uL (2.0-8.3); Neutrophils Percent Auto 62.1 % (45-73); Platelet Count 161 X10*3/uL (160-400); Red Blood Count 4.72 X10*6/uL (4.60-5.80)
== END 2023-11-20 10:05 | disposition home or self-care (01) ==
LOC: HO.10HDL 10:04
PROVIDERS: Visit Provider Psychiatry & Neurology Psychiatry
DX: Z79.899 Other long term (current) drug therapy (principal)
CPT/HCPCS: 36415; 85025

== ENCOUNTER 2023-12-19 09:17 | Outpatient (REF) | payer OTHER, SELFPAY ==
[2023-12-19 10:36] LABS: MANUAL DIFF FLAG NO
[2023-12-19 10:45] LABS: Basophils Absolute Auto 0.1 X10*3/uL (0.0-0.2); Eosinophils Absolute Auto 0.2 X10*3/uL (0.0-0.4); Eosinophils Percent Auto 2.9 % (0-4); Hematocrit 45.1 % (42.0-52.0); Hemoglobin 15.9 g/dl (14.0-18.0); Imm Gran Abs Auto 0.01 X10*3/uL (0.00-0.03); Imm Gran Pct Auto 0.2 % (0.0-0.4); Lymphocytes Absolute Auto 1.6 X10*3/uL (1.2-4.9); Lymphocytes Percent Auto 24.8 % (20-40); Mean Corpuscular HGB Conc 35.3 g/dl (31.0-36.0); Mean Corpuscular Hemoglobin 31.6 pg (27.0-33.0); Mean Corpuscular Volume 89.7 fL (80.0-98.0); Mean Platelet Volume 9.4 fL (9.4-12.4); Monocytes Absolute Auto 0.4 X10*3/uL (0.1-1.2); Monocytes Percent Auto 6.4 % (2-11); Neutrophils Absolute Auto 4.1 x10*3/uL (2.0-8.3); Neutrophils Percent Auto 64.7 % (45-73); Platelet Count 199 X10*3/uL (160-400); Red Blood Count 5.03 X10*6/uL (4.60-5.80); Red Cell Distribution Width 12.1 % (11.0-16.0); White Blood Count 6.3 X10*3/uL (4.8-10.8)
== END 2023-12-19 09:18 | disposition home or self-care (01) ==
LOC: HO.10HDL 09:17
PROVIDERS: Visit Provider Psychiatry & Neurology Psychiatry
DX: Z79.899 Other long term (current) drug therapy (principal)
CPT/HCPCS: 36415; 85025

== ENCOUNTER 2023-12-26 12:22 | Outpatient (REF) | payer MEDICAID, SELFPAY ==
[2023-12-26 13:31] LABS: Estimated Average Glucose 103 mg/dL; Hemoglobin A1c % 5.2 % (<6.0)
[2023-12-26 13:50] LABS: Alanine Aminotransferase 83 U/L (0-40); Albumin Level 4.6 g/dL (3.5-5.0); Alkaline Phosphatase 75 U/L (39-117); Anion Gap 14 (12-20); Aspartate Amino Transferase 36 U/L (5-37); Bilirubin Total 0.4 mg/dL (0.0-1.0); Blood Urea Nitrogen 15 mg/dL (9-16); C Reactive Protein < 0.04 mg/dL (< or = 0.50); Calcium 9.4 mg/dL (8.4-10.2); Carbon Dioxide 25 mmol/L (22-29); Chloride 109 mmol/L (96-108); Estimated Glomerular Filt Rate > 60; Free T4 (Free Thyroxine) 1.12 ng/dL (0.71-1.85); Glucose Random 123 mg/dL (60-115); Potassium 4.2 mmol/L (3.3-5.1); Sodium 144 mmol/L (135-145); Total Protein 6.9 g/dL (6.5-8.0)
== END 2023-12-26 12:23 | disposition home or self-care (01) ==
LOC: HO.10HDL 12:22
PROVIDERS: Visit Provider Internal Medicine
DX: R63.4 Abnormal weight loss (principal); R00.0 Tachycardia, unspecified
CPT/HCPCS: 36415; 80053; 82550; 83036; 84439; 84443; 86140

== ENCOUNTER 2024-01-28 09:08 | Outpatient (REF) | payer OTHER, SELFPAY ==
[2024-01-28 11:21] LABS: MANUAL DIFF FLAG NO
[2024-01-28 11:27] LABS: Basophils Absolute Auto 0.1 X10*3/uL (0.0-0.2); Basophils Percent Auto 1.2 % (0-2); Eosinophils Absolute Auto 0.3 X10*3/uL (0.0-0.4); Hematocrit 45.6 % (42.0-52.0); Imm Gran Abs Auto 0.01 X10*3/uL (0.00-0.03); Imm Gran Pct Auto 0.1 % (0.0-0.4); Lymphocytes Percent Auto 29.6 % (20-40); Mean Corpuscular HGB Conc 35.1 g/dl (31.0-36.0); Mean Corpuscular Volume 91.2 fL (80.0-98.0); Mean Platelet Volume 9.6 fL (9.4-12.4); Monocytes Absolute Auto 0.5 X10*3/uL (0.1-1.2); Monocytes Percent Auto 6.8 % (2-11); Neutrophils Percent Auto 58.3 % (45-73); Platelet Count 180 X10*3/uL (160-400); Red Cell Distribution Width 12.5 % (11.0-16.0); White Blood Count 6.8 X10*3/uL (4.8-10.8)
== END 2024-01-28 09:09 | disposition home or self-care (01) ==
LOC: HO.10HDL 09:08
PROVIDERS: Visit Provider Psychiatry & Neurology Psychiatry
DX: Z79.899 Other long term (current) drug therapy (principal)
CPT/HCPCS: 36415; 85025

== ENCOUNTER 2024-02-26 11:45 | Outpatient (REF) | payer OTHER, SELFPAY ==
[2024-02-26 13:12] LABS: MANUAL DIFF FLAG NO
[2024-02-26 13:47] LABS: Basophils Absolute Auto 0.1 X10*3/uL (0.0-0.2); Eosinophils Absolute Auto 0.3 X10*3/uL (0.0-0.4); Eosinophils Percent Auto 4.9 % (0-4); Hematocrit 45.4 % (42.0-52.0); Hemoglobin 16.1 g/dl (14.0-18.0); Imm Gran Abs Auto 0.01 X10*3/uL (0.00-0.03); Imm Gran Pct Auto 0.2 % (0.0-0.4); Lymphocytes Absolute Auto 2.2 X10*3/uL (1.2-4.9); Lymphocytes Percent Auto 38.9 % (20-40); Mean Corpuscular HGB Conc 35.5 g/dl (31.0-36.0); Mean Corpuscular Volume 90.3 fL (80.0-98.0); Mean Platelet Volume 9.5 fL (9.4-12.4); Monocytes Absolute Auto 0.4 X10*3/uL (0.1-1.2); Monocytes Percent Auto 6.8 % (2-11); Neutrophils Absolute Auto 2.8 x10*3/uL (2.0-8.3); Neutrophils Percent Auto 48.2 % (45-73); Platelet Count 185 X10*3/uL (160-400); Red Blood Count 5.03 X10*6/uL (4.60-5.80); Red Cell Distribution Width 12.2 % (11.0-16.0); White Blood Count 5.7 X10*3/uL (4.8-10.8)
== END 2024-02-26 11:46 | disposition home or self-care (01) ==
LOC: HO.10HDL 11:45
PROVIDERS: Visit Provider Psychiatry & Neurology Psychiatry
DX: Z79.899 Other long term (current) drug therapy (principal)
CPT/HCPCS: 36415; 85025

== ENCOUNTER 2024-03-26 12:22 | Outpatient (REF) | payer OTHER, SELFPAY ==
[2024-03-26 13:02] LABS: MANUAL DIFF FLAG NO
[2024-03-26 13:03] LABS: Basophils Absolute Auto 0.1 X10*3/uL (0.0-0.2); Basophils Percent Auto 1.3 % (0-2); Eosinophils Absolute Auto 0.5 X10*3/uL (0.0-0.4); Eosinophils Percent Auto 6.3 % (0-4); Hematocrit 44.2 % (42.0-52.0); Hemoglobin 15.5 g/dl (14.0-18.0); Imm Gran Abs Auto 0.01 X10*3/uL (0.00-0.03); Imm Gran Pct Auto 0.1 % (0.0-0.4); Lymphocytes Percent Auto 27.5 % (20-40); Mean Corpuscular HGB Conc 35.1 g/dl (31.0-36.0); Mean Corpuscular Hemoglobin 32.2 pg (27.0-33.0); Mean Corpuscular Volume 91.9 fL (80.0-98.0); Mean Platelet Volume 9.6 fL (9.4-12.4); Monocytes Absolute Auto 0.4 X10*3/uL (0.1-1.2); Neutrophils Absolute Auto 4.2 x10*3/uL (2.0-8.3); Neutrophils Percent Auto 58.8 % (45-73); Platelet Count 195 X10*3/uL (160-400); Red Blood Count 4.81 X10*6/uL (4.60-5.80); Red Cell Distribution Width 12.4 % (11.0-16.0); White Blood Count 7.2 X10*3/uL (4.8-10.8)
== END 2024-03-26 12:23 | disposition home or self-care (01) ==
LOC: HO.10HDL 12:22
PROVIDERS: Visit Provider Psychiatry & Neurology Psychiatry
DX: Z79.899 Other long term (current) drug therapy (principal)
CPT/HCPCS: 36415; 85025

== ENCOUNTER 2024-04-29 10:03 | Outpatient (REF) | payer OTHER, SELFPAY ==
[2024-04-29 10:50] LABS: MANUAL DIFF FLAG NO
[2024-04-29 11:07] LABS: Basophils Absolute Auto 0.1 X10*3/uL (0.0-0.2); Basophils Percent Auto 1.5 % (0-2); Eosinophils Absolute Auto 0.4 X10*3/uL (0.0-0.4); Eosinophils Percent Auto 6.1 % (0-4); Hematocrit 46.2 % (42.0-52.0); Hemoglobin 16.3 g/dl (14.0-18.0); Imm Gran Abs Auto 0.02 X10*3/uL (0.00-0.03); Imm Gran Pct Auto 0.3 % (0.0-0.4); Lymphocytes Absolute Auto 1.8 X10*3/uL (1.2-4.9); Lymphocytes Percent Auto 29.8 % (20-40); Mean Corpuscular HGB Conc 35.3 g/dl (31.0-36.0); Mean Corpuscular Hemoglobin 32.3 pg (27.0-33.0); Mean Corpuscular Volume 91.7 fL (80.0-98.0); Mean Platelet Volume 9.6 fL (9.4-12.4); Monocytes Absolute Auto 0.5 X10*3/uL (0.1-1.2); Monocytes Percent Auto 8.7 % (2-11); Neutrophils Absolute Auto 3.1 x10*3/uL (2.0-8.3); Neutrophils Percent Auto 53.6 % (45-73); Platelet Count 184 X10*3/uL (160-400); Red Blood Count 5.04 X10*6/uL (4.60-5.80); Red Cell Distribution Width 11.9 % (11.0-16.0); White Blood Count 5.9 X10*3/uL (4.8-10.8)
== END 2024-04-29 10:04 | disposition home or self-care (01) ==
LOC: HO.10HDL 10:03
PROVIDERS: Visit Provider Psychiatry & Neurology Psychiatry
DX: Z79.899 Other long term (current) drug therapy (principal)
CPT/HCPCS: 36415; 85025

== ENCOUNTER 2024-05-15 18:47 | Emergency (ER) | payer MEDICAID, SELFPAY ==
[2024-05-15 18:55] VITALS: BP 176/77; PULSE 94; RESP 18; TEMP 36.6; O2SAT 98; BMI 21.2
[2024-05-15 19:28] LABS: MANUAL DIFF FLAG NO
[2024-05-15 19:29] LABS: Basophils Absolute Auto 0.1 X10*3/uL (0.0-0.2); Basophils Percent Auto 0.5 % (0-2); Eosinophils Absolute Auto 0.3 X10*3/uL (0.0-0.4); Eosinophils Percent Auto 2.4 % (0-4); Hematocrit 40.4 % (42.0-52.0); Hemoglobin 14.6 g/dl (14.0-18.0); Imm Gran Abs Auto 0.03 X10*3/uL (0.00-0.03); Imm Gran Pct Auto 0.3 % (0.0-0.4); Lymphocytes Absolute Auto 1.8 X10*3/uL (1.2-4.9); Lymphocytes Percent Auto 17.2 % (20-40); Mean Corpuscular HGB Conc 36.1 g/dl (31.0-36.0); Mean Corpuscular Hemoglobin 32.2 pg (27.0-33.0); Mean Corpuscular Volume 89.2 fL (80.0-98.0); Monocytes Absolute Auto 0.6 X10*3/uL (0.1-1.2); Neutrophils Absolute Auto 7.7 x10*3/uL (2.0-8.3); Neutrophils Percent Auto 73.6 % (45-73); Platelet Count 169 X10*3/uL (160-400); Red Blood Count 4.53 X10*6/uL (4.60-5.80); Red Cell Distribution Width 11.7 % (11.0-16.0); White Blood Count 10.4 X10*3/uL (4.8-10.8)
[2024-05-15 19:42] LABS: Ethanol < 10 mg/dL
[2024-05-15 19:44] LABS: Alanine Aminotransferase 30 U/L (0-40); Albumin Level 4.3 g/dL (3.5-5.0); Alkaline Phosphatase 63 U/L (39-117); Anion Gap 14 (12-20); Aspartate Amino Transferase 23 U/L (5-37); Bilirubin Total 0.3 mg/dL (0.0-1.0); Blood Urea Nitrogen 9 mg/dL (9-16); Calcium 8.4 mg/dL (8.4-10.2); Carbon Dioxide 26 mmol/L (22-29); Chloride 106 mmol/L (96-108); Creatinine Clr Calc Pharmacy 111.1; Estimated Glomerular Filt Rate > 60; Glucose Random 101 mg/dL (60-115); Potassium 3.5 mmol/L (3.3-5.1); Sodium 142 mmol/L (135-145); Total Protein 6.5 g/dL (6.5-8.0)
--- NOTE | 2024-05-15 20:34 | ED_ITS ---
HPI - Psych General Chief Complaint: Psychiatric Symptoms Stated Complaint: SI/HI from senior living, hx of schizophrenia Time Seen by Provider: 05/15/24 18:59 Source: patient and EMS Mode of arrival: EMS Limitations: no limitations History of Present Illness ED Provider: Dr. Lottie Ortiz HPI Narrative: patient comes to the emergency room via ambulance from a senior living. According to EMS, the patient called his mother today, stating that he wanted to hurt somebody. Here on arrival to ED, patient calm, cooperative, compliant with changed over process. Patient denies SI, no suicide attempts or self-harm done prior to arrival. Related Data Home Medications ?Medication ?Instructions ?Recorded ?Confirmed aripiprazole 10 mg tablet 30 mg PO DAILY 05/15/24 05/15/24 clozapine 200 mg disintegrating 600 mg PO BEDTIME 05/15/24 05/15/24 tablet clozapine 25 mg disintegrating 75 mg PO BEDTIME 05/15/24 05/15/24 tablet docusate sodium 100 mg capsule 100 mg PO BID 05/15/24 05/15/24 (Colace) lurasidone 80 mg tablet (Latuda) 160 mg PO QPM 05/15/24 05/15/24 melatonin 3 mg tablet 3 mg PO BEDTIME 05/15/24 05/15/24 Previous Rx's ?Medication ?Instructions ?Recorded quetiapine 50 mg tablet 50 mg PO BID PRN anxiety #0 tabs 10/01/22 Allergies Allergy/AdvReac Type Severity Reaction Status Date / Time diphenhydramine Allergy Unknown unknown Verified 05/15/24 18:59 [From BENADRYL] haloperidol [From HALDOL] Allergy Unknown unknown Verified 05/15/24 18:59 paliperidone AdvReac Severe dystonia Verified 05/15/24 18:59 Review of Systems 2 Review of Systems: Constitutional : No Weight loss, No Fever, No Chills, No Night Sweats, No Fatigue, No Malaise ENT/Mouth : No Hearing loss, No Ear Pain, No Nasal Congestion, No Sinus Pain, No Hoarseness, No sore throat, No Rhinorrhea, No Swallowing Difficulty Eyes: No Eye Pain, No Swelling, No Redness, No Foreign Body, No Discharge, No Vision Changes Cardiovascular : No Chest Pain, No SOB, No Dyspnea on Exertion, No Orthopnea, No Edema, No Palpitations Respiratory : No Cough, No Sputum, No Wheezing, No Smoke Exposure, No Dyspnea Gastrointestinal : No Nausea, No Vomiting, No Diarrhea, No Constipation, No abdominal Pain, No Hematochezia, No Melena Genitourinary : no irregular bleeding, No Dysuria, No Urinary Frequency, No Hematuria, No Urinary Incontinence, No Urgency, No Flank Pain, No Urinary Flow Changes, No Hesitancy Musculoskeletal : No joint pain, No Myalgias, No Joint Swelling Skin : No Skin Lesions, No rash Neuro : No Weakness, No Numbness, No Paresthesias, No Loss of Consciousness, No Dizziness, No Headache Psych : No Anxiety/Panic, No Depression, No SI/ , mentioned wanting to harm somebody, nonspecific. Heme/Lymph: No Bruising, No Bleeding,No Lymphadenopathy Endocrine : No Polyuria, No Polydipsia, No Temperature Intolerance [facility] Past Medical History Medical History Schizoaffective disorder, bipolar type Anxiety Surgical History No pertinent past surgical history Social History Social History Household Members: Family Household Members Other:: WITH PARENTS Housing: House Housing Other:: ABLE TO RETURN Do you presently have visiting nurse or other home services: No Unable to assess alcohol history related to: Unknown Alcohol intake: unknown Comment: 1:1 sitter in room Patient Tobacco Use Status: Former Tobacco user Tobacco use type: Cigarette Cigarette Packs Per Day: 1 Cigarettes Per Day: 20.0 Years Smoked: 8 e-Cigarette/Vaping Use: Never Used Second Hand Smoke Exposure: No Substance Use Type: Marijuana Do you have a plan to hurt others: No Plan service: No Current occupational status: disabled Sexual orientation: Did not discuss Physical Exam 2 Vital Signs: Vital Signs: Last Vital Signs Temp 97.8 F 05/15/24 18:55 Pulse 94 05/15/24 18:55 Resp 18 05/15/24 18:55 BP 176/77 H 05/15/24 18:55 Pulse Ox 98 05/15/24 18:55 O2 Del Method Room Air 05/15/24 18:55 BMI result Body Mass Index 21.2 Const: Other: Appearance: Alert. Oriented X3. No acute distress. Eyes: Pupils equal, round and reactive to light. ENT: Pharynx normal. Neck: Normal inspection. Neck supple. No lymph nodes noted. No crepitus CVS: Normal heart rate and rhythm. Pulses normal. Normal S1 and S2 Respiratory: No respiratory distress. Breath sounds normal. No Wheezing. No rales Abdomen: Soft and nontender. No rigidity. No distention. Skin: Skin warm and dry. Normal skin color. Normal skin turgor. Extremities: No lower extremity edema. No Lacerations. No Rash Neuro: Oriented X 3. No motor deficit. No sensory deficit. Moving all extremities. No slurred speech. CN 2 through 12 grossly intact Psych: calm, cooperative, normal affect Medical Decision Making Medical Decision Making MDM Narrative: - my interpretation of labs, no significant abnormality in the hematology, chemistry shows normal electrolytes,, normal LFTs, ETOH negative - physician observation started at 20:40 - care team consult pending Differential Diagnosis Differential Diagnoses: The differential diagnosis associated with the presentation includes ( anxiety, depression, schizoaffective disorder, bipolar disorder) Admission/Observation Consideration of admission/observation: Escalation of care including admission/observation considered ( patient is under physician observation waiting to be seen by the care team) Lab Data 05/15/24 19:24 05/15/24 19:24 Labs: Lab Results 05/15/24 Range/Units 19:24 WBC 10.4 (4.8-10.8) X10*3/uL RBC 4.53 L (4.60-5.80) X10*6/uL Hgb 14.6 (14.0-18.0) g/dl Hct 40.4 L (42.0-52.0) % MCV 89.2 (80.0-98.0) fL MCH 32.2 (27.0-33.0) pg MCHC 36.1 H (31.0-36.0) g/dl RDW 11.7 (11.0-16.0) % Plt Count 169 (160-400) X10*3/uL MPV 9.0 L (9.4-12.4) fL Immature Gran % (Auto) 0.3 (0.0-0.4) % Neut % (Auto) 73.6 H (45-73) % Lymph % (Auto) 17.2 L (20-40) % [place] % (Auto) 6.0 (2-11) % Eos % (Auto) 2.4 (0-4) % Baso % (Auto) 0.5 (0-2) % Lymph # (Auto) 1.8 (1.2-4.9) X10*3/uL [place] # (Auto) 0.6 (0.1-1.2) X10*3/uL Eos # (Auto) 0.3 (0.0-0.4) X10*3/uL Baso # (Auto) 0.1 (0.0-0.2) X10*3/uL Abs Immat Gran (auto) 0.03 (0.00-0.03) X10*3/uL Absolute Neuts (auto) 7.7 (2.0-8.3) x10*3/uL Absolute Nucleated RBC 0.000 (0.0-0.012) X10*3/uL Nucleated RBC % (auto) 0.0 (0.0-0.2) /100WBC Sodium 142 (135-145) mmol/L Potassium 3.5 (3.3-5.1) mmol/L Chloride 106 (96-108) mmol/L Carbon Dioxide 26 (22-29) mmol/L Anion Gap 14 (12-20) BUN 9 (9-16) mg/dL Creatinine 1.07 (0.5-1.4) mg/dL Estim Creat Clear Calc 111.1 Estimated GFR > 60 Random Glucose 101 (60-115) mg/dL Calcium 8.4 D (8.4-10.2) mg/dL Total Bilirubin 0.3 (0.0-1.0) mg/dL AST 23 (5-37) U/L ALT 30 (0-40) U/L Alkaline Phosphatase 63 (39-117) U/L Total Protein 6.5 (6.5-8.0) g/dL Albumin 4.3 (3.5-5.0) g/dL Ethyl Alcohol < 10 mg/dL Critical Care Time Critical Care Time Critical Care Time: Yes Total Critical Care Time: 30 Attestation: I have personally provided critical care time. Time includes review of lab data, radiology results, discussion with consultants, and monitoring for potential decompensation. Intervention performed as documented. Discharge Plan Discharge Clinical Impression: Schizoaffective disorder, bipolar type Patient Disposition: Still a Patient Prescriptions: No Action quetiapine 50 mg Tablet 50 mg PO BID PRN (Reason: anxiety) Qty: 0 0RF aripiprazole 10 mg tablet 30 mg PO DAILY clozapine 200 mg Tablet,Disintegrating 600 mg PO BEDTIME clozapine 25 mg Tablet,Disintegrating 75 mg PO BEDTIME lurasidone [Latuda] 80 mg Tablet 160 mg PO QPM Rx Instructions: must administer with food (at least 350 calories) melatonin 3 mg Tablet 3 mg PO BEDTIME docusate sodium [Colace] 100 mg Capsule 100 mg PO BID Print Language: Canadian
--- NOTE | 2024-05-15 21:05 | MHC.CARE ---
[facility] Correction: [phone]. Attempted to call for collateral x2.
[2024-05-15] MEDS: CLOZAPINE 100 MG 600 MG PO (21:21)
[2024-05-15] MEDS: cloZAPine ODT 25 MG TAB.RAPDIS 75 MG PO (21:21)
[2024-05-15] MEDS: Docusate Sodium 100 MG CAPSULE PO (21:25)
[2024-05-15] MEDS: Melatonin 3 MG TABLET PO (21:25)
[2024-05-15] MEDS: Lurasidone HCl 80 MG TABLET 160 MG PO (21:25)
[2024-05-15] MEDS: Nicotine Polacrilex 2 MG GUM BUCCAL (22:02)
[2024-05-16 01:12] LABS: Appearance Urine Clear; Color Urine Yellow; Glucose Urine UA Negative (Negative); Leukocyte Esterase Urine Negative (Negative); Nitrite Urine Negative (Negative); Specific Gravity - Urine <= 1.005 (1.005-1.025); Urine Blood Negative (Negative); Urine Ketones Negative (Negative); Urine Protein Negative (Neg-Trace)
[2024-05-16 01:22] LABS: Amphetamine Screen Urine Not Detected (Not Detect); Barbiturates, Urine Not Detected (Not Detect); Benzodiazepines Screen Urine Not Detected (Not Detect); Buprenorphine Scr Not Detected (Not Detect); Cannabinoid Screen Urine Not Detected (Not Detect); Cocaine Screen Urine Not Detected (Not Detect); Fentanyl, urine Not Detected (Not Detect); Methadone Screen, Urine Not Detected (Not Detect); Opiate Screen Urine Not Detected (Not Detect); Oxycodone Screen Urine Not Detected (Not Detect); Phencyclidine Screen Urine Not Detected (Not Detect)
--- NOTE | 2024-05-16 06:05 | PC.NURSE ---
Patient slept through the night, lab completed, meds and meals compliant, care consult ordered/pending evaluation, VSS, will continue to monitor
[2024-05-16 09:37] VITALS: BP 127/49; PULSE 117; RESP 15; TEMP 36.8; O2SAT 98
[2024-05-16] MEDS: Docusate Sodium 100 MG CAPSULE PO (09:55)
--- NOTE | 2024-05-16 10:04 | PC.NURSE ---
Awaiting on Abilify per pharmacy at this time.
[2024-05-16] MEDS: ARIPiprazole 30 MG TABLET PO (10:23)
[2024-05-16] MEDS: Nicotine Polacrilex 2 MG GUM BUCCAL (17:31)
[2024-05-16] MEDS: Melatonin 3 MG TABLET PO (21:12)
[2024-05-16] MEDS: cloZAPine ODT 25 MG TAB.RAPDIS 75 MG PO (21:12)
[2024-05-16] MEDS: CLOZAPINE 100 MG 600 MG PO (21:12)
[2024-05-16] MEDS: Lurasidone HCl 80 MG TABLET 160 MG PO (21:12)
--- NOTE | 2024-05-16 21:17 | PHA.MEDREC ---
Addendum entered by Michelle Mahoney RPh 05/16/24 21:29: CHECKED BY [facility]; PT GETTING CLOZAPINE ODT IN CARE HOME; ORDER CHANGED TO REFLECT THAT WHILE INPATIENT Original Note: Pharmacy Consult ? Medication Reconciliation Pharmacy reviewed med rec done by nursing. Got list in patient profile and confirmed medications with that. Nurse put Quetiapine 50mg tabs BID as needed for anxiety, but on list its as needed and in claims we had a daily one and nothing for BID, updated that 1 tab daily as needed anxiety.
[2024-05-17] MEDS: Nicotine Polacrilex 2 MG GUM BUCCAL ×2 (07:24→12:29)
[2024-05-17] MEDS: ARIPiprazole 30 MG TABLET PO (08:31)
[2024-05-17] MEDS: Docusate Sodium 100 MG CAPSULE PO (08:31)
[2024-05-17 08:43] VITALS: BP 142/76; PULSE 90; RESP 16; TEMP 36.9; O2SAT 98
--- NOTE | 2024-05-17 08:45 | PC.NURSE ---
patient has been up to use bathroom this morning, calm and cooperative, engages with staff appropriately. patient ate breakfast, took medications per SEP, VSS. patient appears to be speaking with internal stimuli while in room. patient shows no signs of acute distress
--- NOTE | 2024-05-17 14:45 | PC.NURSE ---
patient picked up by his mom, patient in good spirits. long-term notified of patients return. ambulated off of unit with steady gait
--- NOTE | 2024-05-18 13:45 | MHC.CARE ---
Pt has been placed on alert with [facility]
== END 2024-05-17 14:46 | disposition home or self-care (01) ==
PROVIDERS: Emergency Medicine; Emergency Provider Emergency Medicine Emergency Medical Services; PCP Internal Medicine
DX: F25.0 Schizoaffective disorder, bipolar type (principal); Z79.899 Other long term (current) drug therapy; Z87.891 Personal history of nicotine dependence; Z51.81 Encounter for therapeutic drug level monitoring
CPT/HCPCS: 36415; 80053; 80307; 81003; 85025; 99284; S9485

== ENCOUNTER 2024-06-17 10:03 | Outpatient (REF) | payer MEDICAID, SELFPAY ==
[2024-06-17 10:50] LABS: MANUAL DIFF FLAG NO
[2024-06-17 10:56] LABS: Basophils Absolute Auto 0.1 X10*3/uL (0.0-0.2); Basophils Percent Auto 1.3 % (0-2); Eosinophils Absolute Auto 0.3 X10*3/uL (0.0-0.4); Eosinophils Percent Auto 4.7 % (0-4); Hematocrit 43.5 % (42.0-52.0); Hemoglobin 15.5 g/dl (14.0-18.0); Imm Gran Abs Auto 0.02 X10*3/uL (0.00-0.03); Imm Gran Pct Auto 0.4 % (0.0-0.4); Lymphocytes Absolute Auto 1.7 X10*3/uL (1.2-4.9); Lymphocytes Percent Auto 32.7 % (20-40); Mean Corpuscular HGB Conc 35.6 g/dl (31.0-36.0); Mean Corpuscular Hemoglobin 31.6 pg (27.0-33.0); Mean Corpuscular Volume 88.8 fL (80.0-98.0); Mean Platelet Volume 9.4 fL (9.4-12.4); Monocytes Absolute Auto 0.4 X10*3/uL (0.1-1.2); Monocytes Percent Auto 8.3 % (2-11); Neutrophils Absolute Auto 2.8 x10*3/uL (2.0-8.3); Neutrophils Percent Auto 52.6 % (45-73); Platelet Count 189 X10*3/uL (160-400); Red Cell Distribution Width 11.9 % (11.0-16.0); White Blood Count 5.3 X10*3/uL (4.8-10.8)
== END 2024-06-17 10:04 | disposition home or self-care (01) ==
LOC: HO.10HDL 10:03
PROVIDERS: Visit Provider Psychiatry & Neurology Psychiatry
DX: Z79.899 Other long term (current) drug therapy (principal)
CPT/HCPCS: 36415; 85025

== ENCOUNTER 2024-07-09 08:50 | Outpatient (REF) | payer MEDICAID, SELFPAY ==
[2024-07-09 10:37] LABS: MANUAL DIFF FLAG NO
[2024-07-09 10:41] LABS: Basophils Absolute Auto 0.1 X10*3/uL (0.0-0.2); Basophils Percent Auto 1.1 % (0-2); Eosinophils Absolute Auto 0.4 X10*3/uL (0.0-0.4); Hemoglobin 15.6 g/dl (14.0-18.0); Imm Gran Abs Auto 0.01 X10*3/uL (0.00-0.03); Imm Gran Pct Auto 0.2 % (0.0-0.4); Lymphocytes Percent Auto 31.7 % (20-40); Mean Corpuscular HGB Conc 35.5 g/dl (31.0-36.0); Mean Corpuscular Hemoglobin 31.5 pg (27.0-33.0); Mean Corpuscular Volume 88.9 fL (80.0-98.0); Mean Platelet Volume 9.9 fL (9.4-12.4); Monocytes Absolute Auto 0.5 X10*3/uL (0.1-1.2); Monocytes Percent Auto 7.5 % (2-11); Neutrophils Absolute Auto 3.3 x10*3/uL (2.0-8.3); Neutrophils Percent Auto 52.5 % (45-73); Platelet Count 180 X10*3/uL (160-400); Red Blood Count 4.95 X10*6/uL (4.60-5.80); Red Cell Distribution Width 11.9 % (11.0-16.0); White Blood Count 6.3 X10*3/uL (4.8-10.8)
== END 2024-07-09 08:51 | disposition home or self-care (01) ==
LOC: HO.10HDL 08:50
PROVIDERS: Visit Provider Psychiatry & Neurology Psychiatry
DX: Z79.899 Other long term (current) drug therapy (principal)
CPT/HCPCS: 36415; 85025

== ENCOUNTER 2024-08-01 09:25 | Outpatient (REF) | payer MEDICAID, SELFPAY ==
[2024-08-01 10:57] LABS: MANUAL DIFF FLAG NO
[2024-08-01 11:11] LABS: Basophils Absolute Auto 0.1 X10*3/uL (0.0-0.2); Basophils Percent Auto 1.1 % (0-2); Eosinophils Absolute Auto 0.3 X10*3/uL (0.0-0.4); Eosinophils Percent Auto 5.7 % (0-4); Hematocrit 44.4 % (42.0-52.0); Hemoglobin 15.5 g/dl (14.0-18.0); Imm Gran Abs Auto 0.01 X10*3/uL (0.00-0.03); Imm Gran Pct Auto 0.2 % (0.0-0.4); Lymphocytes Absolute Auto 1.6 X10*3/uL (1.2-4.9); Lymphocytes Percent Auto 30.9 % (20-40); Mean Corpuscular HGB Conc 34.9 g/dl (31.0-36.0); Mean Corpuscular Hemoglobin 31.5 pg (27.0-33.0); Mean Corpuscular Volume 90.2 fL (80.0-98.0); Mean Platelet Volume 9.7 fL (9.4-12.4); Monocytes Absolute Auto 0.4 X10*3/uL (0.1-1.2); Neutrophils Absolute Auto 2.9 x10*3/uL (2.0-8.3); Neutrophils Percent Auto 54.1 % (45-73); Platelet Count 203 X10*3/uL (160-400); Red Blood Count 4.92 X10*6/uL (4.60-5.80); White Blood Count 5.3 X10*3/uL (4.8-10.8)
== END 2024-08-01 09:26 | disposition home or self-care (01) ==
LOC: HO.10HDL 09:25
PROVIDERS: Visit Provider Psychiatry & Neurology Psychiatry
DX: Z79.899 Other long term (current) drug therapy (principal)
CPT/HCPCS: 36415; 85025

== ENCOUNTER 2024-09-12 09:09 | Outpatient (REF) | payer MEDICAID, SELFPAY ==
[2024-09-12 10:34] LABS: MANUAL DIFF FLAG NO
[2024-09-12 10:39] LABS: Basophils Absolute Auto 0.1 X10*3/uL (0.0-0.2); Basophils Percent Auto 1.2 % (0-2); Eosinophils Absolute Auto 0.2 X10*3/uL (0.0-0.4); Eosinophils Percent Auto 4.1 % (0-4); Hematocrit 44.6 % (42.0-52.0); Hemoglobin 15.7 g/dl (14.0-18.0); Imm Gran Abs Auto 0.02 X10*3/uL (0.00-0.03); Imm Gran Pct Auto 0.4 % (0.0-0.4); Lymphocytes Absolute Auto 1.4 X10*3/uL (1.2-4.9); Lymphocytes Percent Auto 28.5 % (20-40); Mean Corpuscular HGB Conc 35.2 g/dl (31.0-36.0); Mean Corpuscular Hemoglobin 31.8 pg (27.0-33.0); Mean Corpuscular Volume 90.5 fL (80.0-98.0); Mean Platelet Volume 9.2 fL (9.4-12.4); Monocytes Absolute Auto 0.3 X10*3/uL (0.1-1.2); Monocytes Percent Auto 6.4 % (2-11); Neutrophils Absolute Auto 2.9 x10*3/uL (2.0-8.3); Neutrophils Percent Auto 59.4 % (45-73); Platelet Count 181 X10*3/uL (160-400); Red Blood Count 4.93 X10*6/uL (4.60-5.80); White Blood Count 4.9 X10*3/uL (4.8-10.8)
== END 2024-09-12 09:10 | disposition home or self-care (01) ==
LOC: HO.10HDL 09:09
PROVIDERS: Visit Provider Psychiatry & Neurology Psychiatry
DX: Z79.899 Other long term (current) drug therapy (principal)
CPT/HCPCS: 36415; 85025

== ENCOUNTER 2024-10-10 09:02 | Outpatient (REF) | payer MEDICAID, SELFPAY ==
[2024-10-10 10:16] LABS: MANUAL DIFF FLAG NO
[2024-10-10 10:19] LABS: Basophils Absolute Auto 0.1 X10*3/uL (0.0-0.2); Basophils Percent Auto 0.9 % (0-2); Eosinophils Absolute Auto 0.2 X10*3/uL (0.0-0.4); Eosinophils Percent Auto 2.7 % (0-4); Hematocrit 45.4 % (42.0-52.0); Hemoglobin 16.1 g/dl (14.0-18.0); Imm Gran Abs Auto 0.02 X10*3/uL (0.00-0.03); Imm Gran Pct Auto 0.3 % (0.0-0.4); Lymphocytes Absolute Auto 1.7 X10*3/uL (1.2-4.9); Lymphocytes Percent Auto 25.1 % (20-40); Mean Corpuscular HGB Conc 35.5 g/dl (31.0-36.0); Mean Corpuscular Hemoglobin 31.6 pg (27.0-33.0); Mean Corpuscular Volume 89.2 fL (80.0-98.0); Mean Platelet Volume 9.4 fL (9.4-12.4); Monocytes Absolute Auto 0.4 X10*3/uL (0.1-1.2); Monocytes Percent Auto 6.1 % (2-11); Neutrophils Absolute Auto 4.3 x10*3/uL (2.0-8.3); Neutrophils Percent Auto 64.9 % (45-73); Platelet Count 208 X10*3/uL (160-400); Red Blood Count 5.09 X10*6/uL (4.60-5.80); Red Cell Distribution Width 12.2 % (11.0-16.0); White Blood Count 6.7 X10*3/uL (4.8-10.8)
== END 2024-10-10 09:03 | disposition home or self-care (01) ==
LOC: HO.10HDL 09:02
PROVIDERS: Visit Provider Psychiatry & Neurology Psychiatry
DX: Z79.899 Other long term (current) drug therapy (principal)
CPT/HCPCS: 36415; 85025

== ENCOUNTER 2024-11-11 09:45 | Outpatient (REF) | payer MEDICAID, SELFPAY ==
[2024-11-11 13:21] LABS: MANUAL DIFF FLAG NO
[2024-11-11 13:49] LABS: Basophils Absolute Auto 0.1 X10*3/uL (0.0-0.2); Eosinophils Absolute Auto 0.2 X10*3/uL (0.0-0.4); Eosinophils Percent Auto 3.5 % (0-4); Hematocrit 46.2 % (42.0-52.0); Hemoglobin 15.9 g/dl (14.0-18.0); Imm Gran Abs Auto 0.02 X10*3/uL (0.00-0.03); Imm Gran Pct Auto 0.3 % (0.0-0.4); Lymphocytes Absolute Auto 1.7 X10*3/uL (1.2-4.9); Lymphocytes Percent Auto 27.7 % (20-40); Mean Corpuscular HGB Conc 34.4 g/dl (31.0-36.0); Mean Corpuscular Hemoglobin 31.5 pg (27.0-33.0); Mean Corpuscular Volume 91.5 fL (80.0-98.0); Mean Platelet Volume 9.7 fL (9.4-12.4); Monocytes Absolute Auto 0.4 X10*3/uL (0.1-1.2); Monocytes Percent Auto 6.4 % (2-11); Neutrophils Absolute Auto 3.8 x10*3/uL (2.0-8.3); Neutrophils Percent Auto 61.1 % (45-73); Platelet Count 196 X10*3/uL (160-400); Red Blood Count 5.05 X10*6/uL (4.60-5.80); Red Cell Distribution Width 12.4 % (11.0-16.0); White Blood Count 6.2 X10*3/uL (4.8-10.8)
== END 2024-11-11 09:46 | disposition home or self-care (01) ==
LOC: HO.10HDL 09:45
PROVIDERS: Visit Provider Psychiatry & Neurology Psychiatry
DX: Z79.899 Other long term (current) drug therapy (principal)
CPT/HCPCS: 36415; 85025

== ENCOUNTER 2024-11-26 08:19 | Outpatient (REF) | payer MEDICAID, SELFPAY ==
[2024-11-26 09:57] LABS: MANUAL DIFF FLAG NO
[2024-11-26 10:16] LABS: Basophils Absolute Auto 0.1 X10*3/uL (0.0-0.2); Basophils Percent Auto 0.9 % (0-2); Eosinophils Absolute Auto 0.3 X10*3/uL (0.0-0.4); Eosinophils Percent Auto 4.8 % (0-4); Hematocrit 45.9 % (42.0-52.0); Imm Gran Abs Auto 0.02 X10*3/uL (0.00-0.03); Imm Gran Pct Auto 0.3 % (0.0-0.4); Lymphocytes Absolute Auto 1.8 X10*3/uL (1.2-4.9); Mean Corpuscular HGB Conc 34.9 g/dl (31.0-36.0); Mean Corpuscular Hemoglobin 31.9 pg (27.0-33.0); Mean Corpuscular Volume 91.4 fL (80.0-98.0); Mean Platelet Volume 9.8 fL (9.4-12.4); Monocytes Absolute Auto 0.5 X10*3/uL (0.1-1.2); Monocytes Percent Auto 8.1 % (2-11); Neutrophils Absolute Auto 3.8 x10*3/uL (2.0-8.3); Neutrophils Percent Auto 58.9 % (45-73); Platelet Count 211 X10*3/uL (160-400); Red Blood Count 5.02 X10*6/uL (4.60-5.80); Red Cell Distribution Width 12.5 % (11.0-16.0); White Blood Count 6.5 X10*3/uL (4.8-10.8)
== END 2024-11-26 08:20 | disposition home or self-care (01) ==
LOC: HO.10HDL 08:19
DX: Z79.899 Other long term (current) drug therapy (principal)
CPT/HCPCS: 36415; 85025

== ENCOUNTER 2025-01-06 10:15 | Outpatient (REF) | payer MEDICAID, SELFPAY ==
[2025-01-06 13:12] LABS: MANUAL DIFF FLAG NO
[2025-01-06 13:16] LABS: Basophils Absolute Auto 0.1 X10*3/uL (0.0-0.2); Basophils Percent Auto 1.3 % (0-2); Eosinophils Absolute Auto 0.3 X10*3/uL (0.0-0.4); Eosinophils Percent Auto 4.3 % (0-4); Hematocrit 43.9 % (42.0-52.0); Hemoglobin 15.2 g/dl (14.0-18.0); Imm Gran Abs Auto 0.01 X10*3/uL (0.00-0.03); Imm Gran Pct Auto 0.1 % (0.0-0.4); Lymphocytes Absolute Auto 1.8 X10*3/uL (1.2-4.9); Lymphocytes Percent Auto 25.7 % (20-40); Mean Corpuscular HGB Conc 34.6 g/dl (31.0-36.0); Mean Corpuscular Volume 92.4 fL (80.0-98.0); Mean Platelet Volume 9.7 fL (9.4-12.4); Monocytes Absolute Auto 0.4 X10*3/uL (0.1-1.2); Monocytes Percent Auto 5.8 % (2-11); Neutrophils Absolute Auto 4.4 x10*3/uL (2.0-8.3); Neutrophils Percent Auto 62.8 % (45-73); Platelet Count 229 X10*3/uL (160-400); Red Blood Count 4.75 X10*6/uL (4.60-5.80); Red Cell Distribution Width 12.2 % (11.0-16.0)
== END 2025-01-06 10:16 | disposition home or self-care (01) ==
LOC: HO.10HDL 10:15
DX: Z79.899 Other long term (current) drug therapy (principal)
CPT/HCPCS: 36415; 85025

== ENCOUNTER 2025-02-03 09:19 | Outpatient (REF) | payer MEDICAID, SELFPAY ==
[2025-02-03 10:13] LABS: MANUAL DIFF FLAG NO
[2025-02-03 10:42] LABS: Hematocrit 46.5 % (42.0-52.0); Hemoglobin 15.7 g/dl (14.0-18.0); Imm Gran Abs Auto 0.03 X10*3/uL (0.00-0.03); Imm Gran Pct Auto 0.3 % (0.0-0.4); Lymphocytes Absolute Auto 1.8 X10*3/uL (1.2-4.9); Mean Corpuscular HGB Conc 33.8 g/dl (31.0-36.0); Mean Corpuscular Hemoglobin 31.3 pg (27.0-33.0); Mean Corpuscular Volume 92.8 fL (80.0-98.0); NRBC Abs Auto 0.000 X10*3/uL (0.0-0.012); NRBC Pct Auto 0.0 /100WBC (0.0-0.2); Platelet Count 215 X10*3/uL (160-400); Red Blood Count 5.01 X10*6/uL (4.60-5.80); White Blood Count 10.7 X10*3/uL (4.8-10.8)
== END 2025-02-03 09:20 | disposition home or self-care (01) ==
LOC: HO.10HDL 09:19
DX: Z79.899 Other long term (current) drug therapy (principal)
CPT/HCPCS: 36415; 85025

== ENCOUNTER 2025-03-03 09:14 | Outpatient (REF) | payer MEDICAID, SELFPAY ==
[2025-03-03 09:50] LABS: MANUAL DIFF FLAG NO
[2025-03-03 09:54] LABS: Hematocrit 44.0 % (42.0-52.0); Hemoglobin 15.4 g/dl (14.0-18.0); Imm Gran Abs Auto 0.02 X10*3/uL (0.00-0.03); Imm Gran Pct Auto 0.3 % (0.0-0.4); Lymphocytes Absolute Auto 1.9 X10*3/uL (1.2-4.9); Mean Corpuscular HGB Conc 35.0 g/dl (31.0-36.0); Mean Corpuscular Hemoglobin 32.0 pg (27.0-33.0); Mean Corpuscular Volume 91.3 fL (80.0-98.0); NRBC Abs Auto 0.000 X10*3/uL (0.0-0.012); NRBC Pct Auto 0.0 /100WBC (0.0-0.2); Platelet Count 195 X10*3/uL (160-400); Red Blood Count 4.82 X10*6/uL (4.60-5.80); White Blood Count 6.9 X10*3/uL (4.8-10.8)
== END 2025-03-03 09:15 | disposition home or self-care (01) ==
LOC: HO.10HDL 09:14
DX: Z79.899 Other long term (current) drug therapy (principal)
CPT/HCPCS: 36415; 85025

== ENCOUNTER 2025-03-31 09:40 | Outpatient (REF) | payer MEDICAID, SELFPAY ==
[2025-03-31 09:56] LABS: MANUAL DIFF FLAG NO
[2025-03-31 10:00] LABS: Hematocrit 44.3 % (42.0-52.0); Hemoglobin 15.6 g/dl (14.0-18.0); Imm Gran Abs Auto 0.01 X10*3/uL (0.00-0.03); Imm Gran Pct Auto 0.1 % (0.0-0.4); Lymphocytes Absolute Auto 1.8 X10*3/uL (1.2-4.9); Mean Corpuscular HGB Conc 35.2 g/dl (31.0-36.0); Mean Corpuscular Hemoglobin 32.2 pg (27.0-33.0); Mean Corpuscular Volume 91.5 fL (80.0-98.0); NRBC Abs Auto 0.000 X10*3/uL (0.0-0.012); NRBC Pct Auto 0.0 /100WBC (0.0-0.2); Platelet Count 192 X10*3/uL (160-400); Red Blood Count 4.84 X10*6/uL (4.60-5.80); White Blood Count 8.5 X10*3/uL (4.8-10.8)
== END 2025-03-31 09:41 | disposition home or self-care (01) ==
LOC: HO.10HDL 09:40
DX: Z79.899 Other long term (current) drug therapy (principal)
CPT/HCPCS: 36415; 85025

== ENCOUNTER 2025-04-28 09:42 | Outpatient (REF) | payer MEDICAID, SELFPAY ==
[2025-04-28 13:10] LABS: MANUAL DIFF FLAG NO
[2025-04-28 13:12] LABS: Hematocrit 43.4 % (42.0-52.0); Hemoglobin 14.7 g/dl (14.0-18.0); Imm Gran Abs Auto 0.01 X10*3/uL (0.00-0.03); Imm Gran Pct Auto 0.2 % (0.0-0.4); Lymphocytes Absolute Auto 1.8 X10*3/uL (1.2-4.9); Mean Corpuscular HGB Conc 33.9 g/dl (31.0-36.0); Mean Corpuscular Hemoglobin 31.7 pg (27.0-33.0); Mean Corpuscular Volume 93.7 fL (80.0-98.0); NRBC Abs Auto 0.000 X10*3/uL (0.0-0.012); NRBC Pct Auto 0.0 /100WBC (0.0-0.2); Platelet Count 194 X10*3/uL (160-400); Red Blood Count 4.63 X10*6/uL (4.60-5.80); White Blood Count 6.4 X10*3/uL (4.8-10.8)
== END 2025-04-28 09:43 | disposition home or self-care (01) ==
LOC: HO.10HDL 09:42
DX: Z79.899 Other long term (current) drug therapy (principal)
CPT/HCPCS: 36415; 85025

== ENCOUNTER 2025-05-19 09:56 | Outpatient (REF) | payer OTHER, SELFPAY ==
[2025-05-22 18:44] LABS: Clozapine (Clozaril) 23 mcg/L
== END 2025-05-19 09:57 | disposition home or self-care (01) ==
LOC: HO.LAB 09:56
PROVIDERS: PCP Student in an Organized Health Care Education/Training Program
DX: Z79.899 Other long term (current) drug therapy (principal)
CPT/HCPCS: 36415; 80159